=== PATIENT | female | born 1935 | race Caucasian/White ===

== ENCOUNTER 2019-02-01 17:53 | Inpatient (IN) | payer OTHER, BC ==
[2019-02-01] MEDS ORDERED: ASPIRIN 81 MG CHEWABLE TABLETS PO ONE (17:57)
--- NOTE | 2019-02-01 17:57 | PDOC ---
Rapid Medical Evaluation Time Seen by Provider: 02/01/19 17:55 Medical Evaluation: Allergies Allergy/AdvReac Type Severity Reaction Status Date / Time pollen extracts Allergy Unknown Verified 05/11/17 09:43 HONEYDEW Allergy Severe Difficulty Uncoded 05/11/14 13:03 Breathing HAYFEVER,GRASS,POLLEN Allergy Uncoded 03/18/16 07:53 02/01/19 17:55 HPI: SOB after stress test PE: No distress ORDERS: cardiac work up Discharge Disposition - Diagnosis SOB (shortness of breath) - Referrals - Patient Instructions - Post Discharge Activity
[2019-02-01 18:47] LABS: BASO % 0.8 % (0-2.0); HEMATOCRIT 32.4 % (32.4-45.2); HEMOGLOBIN 10.9 GM/dL (10.7-15.3); LYMPH % 7.3 % (8-40); MCH 30.7 pg (25.7-33.7); MCHC 33.6 g/dl (32.0-36.0); MEAN CELL VOLUME 91.3 fl (80-96); MEAN PLT VOLUME 8.5 fl (7.5-11.1); MONO % 6.5 % (3.8-10.2); NEUT % 83.4 % (42.8-82.8); PLATELET COUNT 255 K/MM3 (134-434); RBC 3.55 M/mm3 (3.60-5.2); WHITE BLOOD COUNT 6.5 K/mm3 (4.0-10.0)
[2019-02-01] MEDS ORDERED: ASPIRIN COATED 81 MG TABLET.EC ONE (18:50)
[2019-02-01 19:10] LABS: INR 1.16 (0.83-1.09); PROTHROMBIN TIME (PATIENT) 13.7 SEC (9.7-13.0)
--- NOTE | 2019-02-01 19:11 | PDOC ---
History of Present Illness - General Chief Complaint: Shortness of Breath Stated Complaint: SOB Time Seen by Provider: 02/01/19 17:55 - History of Present Illness Initial Comments: 83 yo F w a hx of CAD, CHF, HTN, NIDDM, Hyperlipdemia, right sided pleural effusions, diverticulosis, gastritis, chronic anemia, and anxiety presents to the ER with SOB after a stress test earlier today. The patient states she has been short of breath for the past few days but the daughter in law at bedside states the patient is much more short of breath now then she was this morning. The patient endorses significant dyspnea with exertion lately, endorses difficulty lying flat at night, and extreme shortness of breath here in the ER. She denies having any chest pain. She states she recently started taking amiodorone for AFIB. PCP: Santana Castillo Land Leasing Examiner: Dr. Belrtan PSH: CABG, Hysterectomy Allergies: Pollen, honeydew Social Hx: Independent in her ADL. Former smoker, quit in 1981. Denies current alcohol, drugs, or cigarette usage. Past History - Past Medical History Allergies/Adverse Reactions: Allergies Allergy/AdvReac Type Severity Reaction Status Date / Time pollen extracts Allergy Unknown Verified 02/01/19 18:48 HONEYDEW Allergy Severe Difficulty Uncoded 02/01/19 18:48 Breathing HAYFEVER,GRASS,POLLEN Allergy Uncoded 02/01/19 18:48 Home Medications: Ambulatory Orders Ranolazine [Ranexa] 500 mg PO BID 11/25/11 Folic Acid - 400 mcg PO DAILY 02/16/12 Tiotropium [place] [Spiriva] 18 mcg IH DAILY PRN 02/09/15 Warfarin Na [Coumadin -] 4 mg PO DAILY 08/12/15 Albuterol Sulfate [Proair Respiclick] 90 mcg IH BID PRN 03/18/16 Beclomethasone Dipropionate [Qvar] 0.04 mg IH BID 03/18/16 Furosemide [Lasix -] 40 mg PO DAILY 03/18/16 Glucosamine/D3/Boswellia Eda [Osteo Bi-Flex Caplet] 1 tab PO BID 03/18/16 Iron,Carbonyl [Feosol] 65 mg PO DAILY 03/18/16 Mometasone Furoate [Asmanex] 220 mcg IH BID PRN 08/10/16 Amiodarone HCl 200 mg PO BID 02/01/19 Atorvastatin Ca [Lipitor] 80 mg PO HS 02/01/19 Cyanocobalamin (Vitamin B-12) [Vitamin B-12] 1,000 mcg PO DAILY 02/01/19 Icosapent Ethyl [Vascepa] 2 gm PO BID 02/01/19 Iron Polysacch/Iron Heme Polyp [Feosol Bifera 28 mg Caplet] 28 mg PO DAILY 02/01 Losartan Potassium 25 mg PO DAILY 02/01/19 Metoprolol Succinate [Toprol Xl] 50 mg PO BID 02/01/19 Sitagliptin Phos/Metformin HCl [Janumet 50-1,000 mg Tablet] 1 each PO BID Vitamin E 100 unit PO DAILY 02/01/19 Anemia: No Asthma: Yes Cancer: No Cardiac Disorders: Yes (ASHD,AF, CAD) CVA: No COPD: Yes CHF: No Dementia: No Diabetes: Yes (IDDM) GI Disorders: Yes (COLON ADENOMA,HIATAL HERNIA,DIVERTICULOSIS) Disorders: No HTN: Yes Hypercholesterolemia: Yes 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) Seizures: No Thyroid Disease: No - Surgical History Abdominal Surgery: No Appendectomy: No Cardiac Surgery: Yes (S/P CABG 2003) Cholecystectomy: No Lung Surgery: Yes (THORACENTESIS.AFTER ABNORMAL CAT SCAN) Neurologic Surgery: No Orthopedic Surgery: Yes (RIGHT CARPAL TUNNEL RELEASE) - Suicide/Smoking/Psychosocial Hx Smoking Status: No Smoking History: Never smoked Have you smoked in the past 12 months: No Number of Cigarettes Smoked Daily: 0 If you are a former smoker, when did you quit?: 1981 Information on smoking cessation initiated: No Hx Alcohol Use: No Drug/Substance Use Hx: No Substance Use Type: None Hx Substance Use Treatment: No Review of Systems - Review of Systems Able to Perform ROS?: Yes Comments:: CONSTITUTIONAL: Absent: fever, no chills, no fatigue EYES: Absent: visual changes ENT: Absent: ear pain, no sore throat CARDIOVASCULAR: Present: irregular heart rate, lightheadedness, peripheral edema Absent: chest pain, syncope, palpitations RESPIRATORY: Present: shortness of breath, dyspnea with exertion, orthopnea Absent: cough, wheezing, stridor, hemoptysis GI: Absent: abdominal pain, no nausea, no vomiting, no constipation, no diarrhea GENITOURINARY: Absent: dysuria, no frequency, no hematuria MUSKULOSKELETAL: Absent: back pain, no arthralgia, no myalgia SKIN: Absent: rash NEURO: Absent: headache *Physical Exam - Vital Signs Last Vital Signs Temp Pulse Resp BP Pulse Ox 97.8 F 150 H 16 134/79 97 02/01/19 17:59 02/01/19 17:59 02/01/19 17:59 02/01/19 17:59 02/01/19 18:24 - Physical Exam Comments: GENERAL: Patient looks like she is having a hard time breathing. Looks pale. Moderate distress. HEENT: Normocephalic, atraumatic. PERRL, EOM intact. CARDIOVASCULAR: Irregularly irregular. Tachycardic rate. PULMONARY: Clear evidence of significant respiratory distress. Decreased air movement on the right base. No wheezing, rales or rhonchi. ABDOMEN: Soft, non-distended, non-tender. EXTREMITIES: Normal ROM in all four extremities. No gross deformities. SKIN: Warm, dry. No rash NEUROLOGICAL: No focal neurological deficits. ED Treatment Course - LABORATORY CBC & Chemistry Diagram: 02/01/19 18:24 02/01/19 18:24 - ADDITIONAL ORDERS Additional order review: 02/01/19 18:24 RBC 3.55 L MCV 91.3 MCHC 33.6 RDW 16.0 H MPV 8.5 Neutrophils % 83.4 H Lymphocytes % 7.3 L D Monocytes % 6.5 Eosinophils % 2.0 Basophils % 0.8 Medical Decision Making - Medical Decision Making 83 yo F w a hx of CAD, CHF, HTN, NIDDM, Hyperlipdemia, right sided pleural effusions, diverticulosis, gastritis, chronic anemia, and anxiety presents to the ER with SOB after a stress test earlier today. The patient states she has been short of breath for the past few days but the daughter in law at bedside states the patient is much more short of breath now then she was this morning. The patient endorses significant dyspnea with exertion lately, endorses difficulty lying flat at night, and extreme shortness of breath here in the ER. She denies having any chest pain. She states she recently started taking amiodorone for AFIB. Vital Signs Temp Pulse Resp BP Pulse Ox 97.8 F 139 H 26 H 135/117 H 100 02/01/19 17:59 02/01/19 19:39 02/01/19 19:39 02/01/19 19:39 02/01/19 19:39 DDx IBNLT: CHF exacerbation, COPD, PNA, PE, ACS/NE, Arrhythmia, medication side/ effect Trop negative. BNP elevated. INR subtherapeutic. MDM: Patient is clearly having a heart failure exacerbation. - She is also supposed to be taking warfarin for her AFIB but her INR is subtherapeutic, possible as a result of her recently starting amiodorone. - Plan is to start lasix and Bi-Pap in the ED then admit the patient to the hospital for a heart failure exacerbation. - Will also obtain a CTA to rule out PE Patient noted to have a relatively low GFR - Given the patient's sub-therapeutic index we find it extremely necessary to scan the patient with contrast to rule out PE - Risks discussed with patient and we have advised that it is in her best interest to have a CTA to rule out PE. - CTA negative for PE but shows a large right sided pleural effusion. Patient breathing much better on Bi-Pap *DC/Admit/Observation/Transfer Diagnosis at time of Disposition: SOB (shortness of breath), Irregularly irregular cardiac rhythm, Heart failure , Subtherapeutic international normalized ratio (INR) - Discharge Dispostion Condition at time of disposition: Guarded Decision to Admit order: Yes - Referrals - Patient Instructions - Post Discharge Activity
[2019-02-01 19:19] LABS: ALBUMIN 3.4 g/dl (3.4-5.0); ALK PHOS 94 U/L (45-117); ANION GAP 7 MMOL/L (8-16); BILIRUBIN,TOTAL 0.6 mg/dL (0.2-1); BLOOD UREA NITROGEN 26.6 mg/dL (7-18); CALCIUM 9.9 mg/dL (8.5-10.1); CHLORIDE 107 mmol/L (98-107); CO2 26 mmol/L (21-32); CREATININE 1.3 mg/dL (0.55-1.3); GLUCOSE,RANDOM 151 mg/dL (74-106); MAGNESIUM 2.3 mg/dL (1.8-2.4); POTASSIUM 4.5 mmol/L (3.5-5.1); SGOT/AST 12 U/L (15-37); SGPT/ALT 19 U/L (13-61); SODIUM 140 mmol/L (136-145); TOT PROT 7.1 g/dl (6.4-8.2)
[2019-02-01] MEDS ORDERED: FUROSEMIDE 40 MG/4 ML INJECTABLE VIAL IVPUSH ONE ×2 (19:37→21:05)
[2019-02-01] MEDS ORDERED: FUROSEMIDE 40 MG/4 ML INJECTABLE VIAL ONE ×2 (19:45→21:20)
--- NOTE | 2019-02-01 19:59 | HP ---
Admitting History and Physical - Primary Care Physician PCP: Dr Castillo - Admission Chief Complaint: Worsening SOB History of Present Illness: PCP: Santana Castillo Intake Man: Dr. Sage Pt is an 83 yo F w a hx of CAD, s/p PCI, CABG (2003), DCHF, HTN, NIDDM, Hyperlipdemia, chronic right sided pleural effusions s/p thoracocentesis, diverticulosis, gastritis, chronic anemia, RESTREPO with cirrhosis, and anxiety presenting for SOB after an outpt stress test earlier today. Pt reports worsening SOB over the past week with persistent b/l leg edema. Prior to the stress test pt reported able to take the stairs with minimal exertion but since getting home today she was SOB on minimal exertion including while sitting down. The patient has orthopnea, PND, b/l leg swelling which has persisted but with marked SOB after the stress test today with Dr Sage. Per pt the nuclear stress test was reported to be negative. Pt denies chest pain. She recently changed her acquisitions librarian from Dr Ayers to dr Sage about 2 months ago and recently had changes to her medications including amiodarone 200mg daily and toprol 50mg bid, with discontinuation it appears of diltiazem that was listed previously in her records. Pt has been taking 20mg of lasix for a long time and reports administering her medications by herself, admits to missing doses and to increased salt intake without fluid restriction. Her last admission was at [facility] in 2016, she has never been intubated and does not use oxygen or CPAP at home. Never been evaluated for sleep apnea. she denies lung dx including COPD although she reports having thoracocentesis in the past. CT August 2018 showed stable multiple lung nodules and mamogram in past showed nodules. Pt last used inhalers over 2 months ago. While in the ED, she had severe SOB and was placed on BIPAP. 22/01 When I saw her in CT on nasal cannular she was unable to complete sentences. CTA chest- negative for PE, but showed increased b/l pleural effusions Initial EKG- vent rate 134bpm, nl axis, nl intervals, no CRISTHIAN/STD, low voltage, Afib, QTC 495 Repeat EKG- Afib vent rate 110, Q waves in v1,v2, low voltage, TWIs v1-v3,QTC- 460 Initial trops-ve CT 08/2018 Stable nodules 7mm-RUL, 5.5mm-RLL, 4mm-subpleural nodule, 5mm-subpleural Mod effusion R trace L, calcified subcarinal and pretrach adenopathy UA-01/30 Nitrite +ve. trace LE PSH: CABG, Hysterectomy, s/p R carpal tunnel release Allergies: Pollen, honeydew Social Hx: Independent in her ADL. Former smoker, quit in 1981. Denies current alcohol, drugs, or cigarette usage. History Source: Patient, Family Member Limitations to Obtaining History: No Limitations - Past Medical History Cardiovascular: Yes: CAD, CHF, HTN, Hyperlipdemia Pulmonary: Yes: Other (Stable lung nodules) Gastrointestinal: Yes: Diverticulosis, Gastritis Heme/Onc: Yes: Anemia, Other Psych: Yes: Anxiety Endocrine: Yes: Diabetes Mellitus - Past Surgical History Past Surgical History: Yes: CABG, Hysterectomy - Advance Directives Advance Directives: Yes: DNR - Smoking History Smoking history: Never smoked Have you smoked in the past 12 months: No Aproximately how many cigarettes per day: 0 If you are a former smoker, when did you quit?: 1981 - Alcohol/Substance Use Hx Alcohol Use: No History of Substance Use: reports: None - Social History ADL: Independent 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 History of Recent Travel: No Home Medications - Allergies Allergies/Adverse Reactions: Allergies Allergy/AdvReac Type Severity Reaction Status Date / Time pollen extracts Allergy Unknown Verified 02/01/19 18:48 HONEYDEW Allergy Severe Difficulty Uncoded 02/01/19 18:48 Breathing HAYFEVER,GRASS,POLLEN Allergy Uncoded 02/01/19 18:48 - Home Medications Home Medications: Ambulatory Orders Ranolazine [Ranexa] 500 mg PO BID 11/25/11 Folic Acid - 400 mcg PO DAILY 02/16/12 Tiotropium [place] [Spiriva] 18 mcg IH DAILY PRN 02/09/15 Warfarin Na [Coumadin -] 4 mg PO DAILY 08/12/15 Albuterol Sulfate [Proair Respiclick] 90 mcg IH BID PRN 03/18/16 Beclomethasone Dipropionate [Qvar] 0.04 mg IH BID 03/18/16 Furosemide [Lasix -] 40 mg PO DAILY 03/18/16 Glucosamine/D3/Boswellia Eda [Osteo Bi-Flex Caplet] 1 tab PO BID 03/18/16 Iron,Carbonyl [Feosol] 65 mg PO DAILY 03/18/16 Mometasone Furoate [Asmanex] 220 mcg IH BID PRN 03/18/16 Amiodarone HCl 200 mg PO BID 02/01/19 Atorvastatin Ca [Lipitor] 80 mg PO HS 02/01/19 Cyanocobalamin (Vitamin B-12) [Vitamin B-12] 1,000 mcg PO DAILY 02/01/19 Icosapent Ethyl [Vascepa] 2 gm PO BID 02/01/19 Iron Polysacch/Iron Heme Polyp [Feosol Bifera 28 mg Caplet] 28 mg PO DAILY 02/01 Losartan Potassium 25 mg PO DAILY 02/01/19 Metoprolol Succinate [Toprol Xl] 50 mg PO BID 02/01/19 Sitagliptin Phos/Metformin HCl [Janumet 50-1,000 mg Tablet] 1 each PO BID Vitamin E 100 unit PO DAILY 02/01/19 Family Disease History - Family Disease History Family Disease History: Diabetes: Mother, Heart Disease: Mother Review of Systems - Review of Systems Constitutional: denies: Chills, Diaphoresis, Fever, Loss of Appetite Eyes: denies: Blurred Vision, Recent Change in Vision HENT: denies: Difficult Swallowing Neck: denies: Stiffness Cardiovascular: denies: Chest Pain Respiratory: reports: Exercise Intolerance, Orthopnea, PND, SOB, SOB on Exertion. denies: Cough, Hemoptysis, Wheezing Gastrointestinal: denies: Abdominal Pain, Bloating, Constipation, Diarrhea, Vomiting Genitourinary: reports: Incontinence. denies: Burning, Flank Pain Neurological: denies: Change in LOC, Change in Speech, Confusion, Syncope, Tremors Psychiatric: reports: Anxiety Physical Examination Vital Signs: Vital Signs Temperature 97.8 F 02/01/19 17:59 Pulse Rate 139 H 02/01/19 19:39 Respiratory Rate 26 H 02/01/19 19:39 Blood Pressure 135/117 H 02/01/19 19:39 O2 Sat by Pulse Oximetry (%) 100 02/01/19 19:39 Constitutional: Yes: Well Nourished Eyes: Yes: Conjunctiva Clear, EOM Intact, PERRL. No: Sclera Icterus HENT: No: Drooling, Epistaxis, Pharyngeal Erythema Neck: Yes: Supple Cardiovascular: Yes: Tachycardia, JVD, S1, S2 Respiratory: Yes: Diminished (R lung base, few fine crackles) Gastrointestinal: Yes: Soft, Abdomen, Obese Renal/: No: CVA Tenderness - Left, CVA Tenderness - Right Musculoskeletal: No: Joint Stiffness, Joint Swelling Edema: Yes Edema: LLE: 2+, RLE: 2+ Peripheral Pulses WNL: Yes Neurological: Yes: Alert, Oriented, Cran Nerves II-XII Intact. No: Aphasia, Asterixis, Dysarthria, Facial Droop, Lethargy, Pre-Existing Deficit, Seizure, Tremors Labs: CBC, BMP 02/01/19 18:24 02/01/19 18:24 Imaging - Results Chest X-ray: Image Reviewed Cat Scan: Report Reviewed, Image Reviewed Assessment/Plan Ambulatory Orders Ranolazine [Ranexa] 500 mg PO BID 11/25/11 Folic Acid - 400 mcg PO DAILY 02/16/12 Tiotropium [place] [Spiriva] 18 mcg IH DAILY PRN 02/09/15 Warfarin Na [Coumadin -] 4 mg PO DAILY 08/12/15 Albuterol Sulfate [Proair Respiclick] 90 mcg IH BID PRN 03/18/16 Beclomethasone Dipropionate [Qvar] 0.04 mg IH BID 03/18/16 Furosemide [Lasix -] 40 mg PO DAILY 03/18/16 Glucosamine/D3/Boswellia Eda [Osteo Bi-Flex Caplet] 1 tab PO BID 03/18/16 Iron,Carbonyl [Feosol] 65 mg PO DAILY 03/18/16 Mometasone Furoate [Asmanex] 220 mcg IH BID PRN 03/18/16 Amiodarone HCl 200 mg PO BID 02/01/19 Atorvastatin Ca [Lipitor] 80 mg PO HS 02/01/19 Cyanocobalamin (Vitamin B-12) [Vitamin B-12] 1,000 mcg PO DAILY 02/01/19 Icosapent Ethyl [Vascepa] 2 gm PO BID 02/01/19 Iron Polysacch/Iron Heme Polyp [Feosol Bifera 28 mg Caplet] 28 mg PO DAILY 02/01 Losartan Potassium 25 mg PO DAILY 02/01/19 Metoprolol Succinate [Toprol Xl] 50 mg PO BID 02/01/19 Sitagliptin Phos/Metformin HCl [Janumet 50-1,000 mg Tablet] 1 each PO BID Vitamin E 100 unit PO DAILY 02/01/19 Current Medications Albuterol Sulfate (Ventolin Hfa Inhaler -) 1 puff IH BID PRN PRN Reason: SHORTNESS OF BREATH Amiodarone HCl (Cordarone -) 200 mg PO BID [facility] Last Admin: 02/01/19 22:13 Dose: 200 mg Aspirin (Ecotrin -) 81 mg PO DAILY [facility] Atorvastatin Calcium (Lipitor -) 80 mg PO HS [facility] Last Admin: 02/01/19 22:13 Dose: 80 mg Enoxaparin Sodium (Lovenox -) 60 mg SQ BID [facility] Insulin Aspart (Novolog Vial Sliding Scale -) 1 vial SQ Q4HPO [facility]; Protocol Metoprolol Succinate (Toprol Xl -) 50 mg PO BID [facility] Last Admin: 02/01/19 23:54 Dose: 50 mg Ranolazine (Ranexa -) 500 mg PO BID [facility] Last Admin: 02/01/19 22:13 Dose: 500 mg Warfarin Sodium (Coumadin -) 2 mg PO DAILY@1600 [facility] Assessment/Plan: Pt is an 83 yo F with PMHx of CAD, s/p PCI, CABG (2003), DCHF, HTN, NIDDM, aFIB W/rvr (on coumadin), Hyperlipdemia, chronic right sided pleural effusions s/p thoracocentesis, diverticulosis, gastritis, chronic anemia, RESTREPO with cirrhosis , and anxiety presenting for SOB after an outpt stress test earlier today. #Acute hypoxic respiratory failure abg pending- pt refused abg Pt does not use oxygen at home, never been intubated SOB- Likely in setting of CHF precipitated by rapid afib Pt on BIPAP, consider weaning off bipap as tolerated Lasix 40mg given in Ed, repeat 40 given 40mg lasix daily Cont ranexa Pt responsive to bipap, may benefit from sleep study as an outpt. #CHF exacerbation DCHF documented in past Use PO 20mg lasix Cont 40mg iv daily Strict ins and outs Daily weight Fluid restriction Salt restriction ECHO #Afib w/RVR Likely precipitating CHF failure Consult- Dr Chu Guajardo 5mg given Cont metoprolol 50 xl bid Amiodarone 200daily Lovenox- therapeutic dose (subtherapeutic INR, with CKD)- Pharmacy recommended 60mg bid Warfarin cont 2mg- D/W pharmacy #UTI Pt denying clear urinary symptoms UA positive noted on 01/30 test Repeat UA- positive for nitrites with bacteria 178 Ucx pending 1g ceftriaxone daily #CKD Pt received iv contrast today, will avoid nephrotoxic drugs Gentle diuresis Daily weights Strict ins and outs #CAD, s/p PCI, CABG (2003) Cont ASA Cont metoprolol Hold ARB #HTN Cont lasix Hold ARB Cont metoprolol #NIDDM Hold PO meds ISS Q4H BGM Q4H #Hyperlipidemia Cont lipitor #chronic right sided pleural effusions s/p thoracocentesis Seen by pulm in past Unsure of out pt follow up #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 Unclear TB work up Quantiferon pending Recent CT August 2018- shows nodules are stable Cont to monitor #diverticulosis/gastritis/chronic anemia/RESTREPO with cirrhosis CTA still showing cirrhosis today No abdominal complaints at the moment Cont to monitor Transfusion goal with CAD <8 Cont outpt GI mx #anxiety Not on any anxiolytic Tele admit Full dose heparin with subtherapeutic INR Cont coumadin 2mg Code status DNR- In Chart Visit type - Emergency Visit Emergency Visit: Yes ED Registration Date: 02/01/19 Care time: The patient presented to the Emergency Department on the above date and was hospitalized for further evaluation of their emergent condition. - New Patient This patient is new to me today: Yes Date on this admission: 02/01/19 - Critical Care Critical Care patient: No
--- NOTE | 2019-02-01 20:26 | PN ---
Teaching Attending Note Name of Resident: Gracia Reyes ATTENDING PHYSICIAN STATEMENT I saw and evaluated the patient. I reviewed the resident's note and discussed the case with the resident. I agree with the resident's findings and plan as documented. SUBJECTIVE: Seen and examined; please refer to resident note for further historical information. Briefly, this is a 83 y/o female presenting to the ER with a CC of SOB. She has a history of diastolic CHF exacerbations 2/2 rate-related issues stemming from her afib, and this appears to be the same case. She was seen by her land sales agent for stress test (report pending) and subsequentially developed exertional SOB. When prompted, the patient endorses frequent medication noncompliance and frequent dietary noncompliance, admitting to eating a good deal of salt and not paying attention to her fluid intake. She denies CP; she tells me that these symptoms are similar to her prior CHF exacerbation. There are inconsistinces between medication lists and we are elucidating what she is actually taking; appears that she is listed as being on several inhalers that she is not currently using, as well as likely recent dosage updates with her BB and warfarin (also found today to have subtherapeutic INR). She reveals her last year and agrees that she may be depressed due to this. She was placed on Bipap in the ER which did improve her symptoms; she was noted to refuse ABG. 10 sys ROS done and negative aside from HPI PMH, PSH, FH, SH reviewed Home Medications Medication Instructions Recorded Ranolazine [Ranexa] 500 mg PO BID 11/25/11 Folic Acid - 400 mcg PO DAILY 02/16/12 Tiotropium [place] [Spiriva] 18 mcg IH DAILY PRN 02/09/15 Warfarin Na [Coumadin -] 4 mg PO DAILY 08/12/15 Albuterol Sulfate [Proair 90 mcg IH BID PRN 03/18/16 Respiclick] Beclomethasone Dipropionate [Qvar] 0.04 mg IH BID 03/18/16 Furosemide [Lasix -] 40 mg PO DAILY 03/18/16 Glucosamine/D3/Boswellia Eda 1 tab PO BID 03/18/16 [Osteo Bi-Flex Caplet] Iron,Carbonyl [Feosol] 65 mg PO DAILY 03/18/16 Mometasone Furoate [Asmanex] 220 mcg IH BID PRN 03/18/16 Amiodarone HCl 200 mg PO BID 02/01/19 Atorvastatin Ca [Lipitor] 80 mg PO HS 02/01/19 Cyanocobalamin (Vitamin B-12) 1,000 mcg PO DAILY 02/01/19 [Vitamin B-12] Icosapent Ethyl [Vascepa] 2 gm PO BID 02/01/19 Iron Polysacch/Iron Heme Polyp 28 mg PO DAILY 02/01/19 [Feosol Bifera 28 mg Caplet] Losartan Potassium 25 mg PO DAILY 02/01/19 Metoprolol Succinate [Toprol Xl] 50 mg PO BID 02/01/19 Sitagliptin Phos/Metformin HCl 1 each PO BID 02/01/19 [Janumet 50-1,000 mg Tablet] Vitamin E 100 unit PO DAILY 02/01/19 She says she only takes 20 lasix QD; current med list does NOT have the diltiazem; she also does not appear to be on the inhalers listed above and on chart review doesn't carry a diagnosis of COPD. Warfarin dose appears to have been adjusted to 2mg from 4mg. Resident team to update above list. OBJECTIVE: VS, labs, imaging reviewed NAD, AAO, resting comfortably in bed NC AT EOMI PERRLA Tachycardic and irregular with s1/2 Lungs with scattered moderate crackles throughout, w/ sym exp NT ND +BS CN2-12 wnl, no fnd Normal mood, appropriate behavior. EKG reviewed; Afib with RVR and nonspecific ST-T abnormality CXR reviewed; endorses fluid overload CT chest reviewed Stress test from today results pending; 2017 stress reviewed ASSESSMENT AND PLAN: Patient presents with CHF exacerbation and Afib with RVR; she has improved on BiPap and will be on medicine service with CV consultation. Acute respiratory failure likely 2/2 CHF exacerbation (known diastolic dysfunction with ? systolic component) -ABG refused by patient. BNP elevated, fluid overload noted on CXR/CT. -Noted the given lasix dosage; would do 40 IV QD for now and confirm the dose she was getting at home. Checking 2D echo. On GDMT; will continue BB but hold ARB given the relative increase in renal function from her baseline and resume tomorrow if no worsening renal indices. QD weights, fluid and salt restriction , optimize K and Mg. Consider chief quality officer referral given the dietary noncompliance. -Likely trigger is rate related with element of dietary noncompliance. Would like to see stress test records, as well. Appreciate cardiology expert input. Afib with RVR on coumadin -Given 1x 5mg push in the ER of CT which lowered HR to 100s-110s. Giving PM dose of toprol XL and will continue to monitor on telemetry. Can repeat IV BB dose if needed; would stay away from dilt given unknown current systolic function with current fluid overload and it appears that this has been discontinued as of late. -Home medications include amiodarone 200 BID, Toprol XL 50 BID. Will continue aforementioned. -Per [address] Villasenor she had issues with rate control and there had been consideration of DCCV due to this. She now follows with Dr. Sage so we will consult him for further input. She doesn't appear to be on cardizem on 02/01 medlist from [facility]. Has been on dig in the past. -Warfarin with pharmacy to dose; subtherapeutic INR noted. Will give 1x dose lovenox tonight and followup INR in AM. CAD S/P CABG, PCI -Continue ASA, BB, Ranexa, Lipitor. Obtain stress test records from today's visit with CV. Acute Cystitis -Reviewed 01/30 UA and repeat study; empiric ceftriaxone follow cx's and clinically Type 2 DM -Hold PO meds and SSI when inpatient. Hypercholesterolemia -Continue home statin; OP lipid FU Cirrhosis -Noted history and apparent on imaging. TYLER -Relative increase in Cr with drop in CrCl from baseline of significance; did get a good amount of diuresis alongside contrast in the ER. Will thus hold ARB until ascertained that her renal function is normal. She has multiple reasons for CKD, as well. Monitor BMP and UOP. Hx HLD -Verify and continue home medications (documented as Vascepta and Lipitor) -OP lipid followup Hx HTN -Hold losartan until we can verify renal function baseline; resume when clinically appropriate Hx DM -Hold PO meds; SSI when inpatient. MANISHA Scarring vs. Chronic Infiltrate -Noted on CT; prior imaging reviewed. She has seen pulmonary medicine in the past.
--- NOTE | 2019-02-01 20:49 | PDOC ---
Documentation entered by Jaime Martino SCRIBE, acting as scribe for Sadie Mora DO. Sadie Mora DO: This documentation has been prepared by the júnior, Jaime Martino SCRIBE, under my direction and personally reviewed by me in its entirety. I confirm that the documentation accurately reflects all work, treatment, procedures, and medical decision making performed by me. Attending Attestation - Resident Resident Name: Marco Rodriguez - ED Attending Attestation I have performed the following: I have examined & evaluated the patient, The case was reviewed & discussed with the resident, I agree w/resident's findings & plan - HPI HPI: 02/01/19 19:35 The patient is an 83 year old female with a significant past medical history of CAD, CHF, HTN, NIDDM, Hyperlipidemia, right sided pleural effusion, diverticulosis, gastritis, chronic anemia, and anxiety presents to the ER with SOB s/p stress test earlier today. As per daughter in law, the patient is independent on daily activity. As per family, the patient does not have a history of PE/ blood clots. The patient denies chest pain, headache and dizziness. Denies fever, chills, nausea, vomiting, diarrhea and constipation. Denies dysuria, frequency, urgency and hematuria. Allergies: Pollen, honeydew Surgical History: CABG, Hysterectomy Social History: Independent in his ADL. Former smoker, quit in 1981. Denies current alcohol, drugs, or cigarette usage. PCP: Santana Arvizu - Physicial Exam PE: 02/01/19 19:37 Agree with resident exam. - Medical Decision Making 02/01/19 20:48 83-year-old female with history of coronary artery disease as well as congestive heart failure with increasing shortness of breath worse after medical stress test Chest x-ray and labs suggest congestive heart failure, troponin within normal limits Due to patient's low mobility and subtherapeutic INR a CTA of the chest will be performed to rule out pulmonary embolism Lasix 40 mg IV push given, BiPAP initiated due to increased work of breathing and patient fatigue Patient admitted to hospitalist service for further management
[2019-02-01] MEDS ORDERED: PATIENT'S OWN MEDICATION (NON-FORMULARY) (Tiotropium Bromide [Spiriva] 18 MCG) IH PRN (21:03)
[2019-02-01] MEDS ORDERED: PATIENT'S OWN MEDICATION (NON-FORMULARY) (Albuterol Sulfate [Proair Respiclick] 90 MCG) IH PRN (21:03)
[2019-02-01] MEDS ORDERED: MOMETASONE FUROATE 220 MCG/IH INHALER IH PRN (21:03)
[2019-02-01] MEDS ORDERED: METOPROLOL TARTRATE 5 MG/5 ML VIAL IVPUSH ONE (21:06)
[2019-02-01] MEDS ORDERED: ALBUTEROL SO4 8 GM HFA INHALER IH PRN ×2 (21:09→21:10)
[2019-02-01] MEDS ORDERED: ATORVASTATIN CA 80 MG TABLET (FP) ONE (21:19)
[2019-02-01] MEDS ORDERED: AMIODARONE HCL 200 MG TABLET (FP) ONE (21:20)
[2019-02-01] MEDS ORDERED: METOPROLOL TARTRATE 5 MG/5 ML VIAL ONE (21:40)
[2019-02-01] MEDS: RANOLAZINE E.R. 500 MG TABLET (FP) PO SCH (22:13)
[2019-02-01] MEDS: AMIODARONE HCL 200 MG TABLET (FP) PO SCH (22:13)
[2019-02-01] MEDS: ATORVASTATIN CA 80 MG TABLET (FP) PO SCH (22:13)
[2019-02-01] MEDS ORDERED: CEFTRIAXONE 1 GM in DEXTROSE 5%-WATER - 50 ML IVPB ONE (22:51)
[2019-02-01] MEDS ORDERED: CEFTRIAXONE 1 GM/50 ML BAG ONE (23:40)
[2019-02-02] MEDS ORDERED: INSULIN (NOVOLOG) ASPART 100 UNITS/ML 10ML VIAL ONE (00:24)
[2019-02-02 00:51] LABS: EPI CELLS 0.3 /HPF (0-5/HPF); HYALINE CASTS 0 /lpf (0-8); URINE APPEARANCE CLEAR; URINE BACTERIA 1786.6 /hpf (NEGATIVE); URINE BILIRUBIN NEGATIVE (NEGATIVE); URINE COLOR YELLOW; URINE GLUCOSE (UA) NEGATIVE (NEGATIVE); URINE KETONE NEGATIVE (NEGATIVE); URINE LEUK ESTERASE NEGATIVE (NEGATIVE); URINE NITRITE POSITIVE (NEGATIVE); URINE PROTEIN NEGATIVE (NEGATIVE); URINE RBC 0 /hpf (0-4); URINE UROBILINOGEN 0.2 mg/dL (0.2-1.0); URINE WBC 1 /hpf (0-5)
[2019-02-02] MEDS: INSULIN SLIDING SCALE (NOVOLOG) 1 VIAL SQ SCH ×6 (00:59→21:44)
[2019-02-02 05:49] LABS: HEMATOCRIT 30.8 % (32.4-45.2); HEMOGLOBIN 10.5 GM/dL (10.7-15.3); MCHC 34.2 g/dl (32.0-36.0); MEAN CELL VOLUME 90.4 fl (80-96); MEAN PLT VOLUME 8.5 fl (7.5-11.1); PLATELET COUNT 278 K/MM3 (134-434); RDW 15.8 % (11.6-15.6)
[2019-02-02 06:02] LABS: INR 1.17 (0.83-1.09); PROTHROMBIN TIME (PATIENT) 13.8 SEC (9.7-13.0)
[2019-02-02 06:05] LABS: ACTIVATED PTT 39.1 SECONDS (25.2-36.5)
[2019-02-02 06:20] LABS: ALBUMIN 3.2 g/dl (3.4-5.0); BILIRUBIN,TOTAL 0.9 mg/dL (0.2-1); BLOOD UREA NITROGEN 24.9 mg/dL (7-18); CALCIUM 9.9 mg/dL (8.5-10.1); CREATININE 1.4 mg/dL (0.55-1.3); MAGNESIUM 2.2 mg/dL (1.8-2.4); PHOSPHOROUS 3.3 mg/dL (2.5-4.9); POTASSIUM 4.3 mmol/L (3.5-5.1)
--- NOTE | 2019-02-02 09:52 | PN ---
Teaching Attending Note Name of Resident: Samina Redd ATTENDING PHYSICIAN STATEMENT I saw and evaluated the patient. I reviewed the resident's note and discussed the case with the resident. I agree with the resident's findings and plan as documented with exceptions below. SUBJECTIVE: Patient seen and examined, breathing improved, reports non compliance with diet and lasix intermittently. NO chest pain, palpitations, dizziness currently. Denies any abdominal or urinary symptoms. OBJECTIVE: Vital Signs Period Temp Pulse Resp BP Sys/Cortes Pulse Ox Last 24 Hr 97.8 F-98.2 F 90-150 16-28 104-154/70-117 95-100 Intake & Output 01/30/19 01/31/19 02/01/19 02/02/19 23:59 23:59 23:59 23:59 Output Total 50 Balance -50 Weight 150 lb 165 lb 6.4 oz General: sitting in bed, mild tachypnea and use of accessory muscles of respiration, able to speak in full sentences Neck: soft, supple, neck distension, pos JVD Chest: Decreased breath sounds at bases to midlung on right side Abdomen:soft, NT, ND, no CVA or suprapubic tenderness Extremities2+ pedal pitting edema CVS:S1S2 irregularly irregular Home Medications Medication Instructions Recorded Ranolazine [Ranexa] 500 mg PO BID 11/25/11 Folic Acid - 400 mcg PO DAILY 02/16/12 Tiotropium [place] [Spiriva] 18 mcg IH DAILY PRN 02/09/15 Warfarin Na [Coumadin -] 4 mg PO DAILY 08/12/15 Albuterol Sulfate [Proair 90 mcg IH BID PRN 03/18/16 Respiclick] Beclomethasone Dipropionate [Qvar] 0.04 mg IH BID 03/18/16 Furosemide [Lasix -] 40 mg PO DAILY 03/18/16 Glucosamine/D3/Boswellia Eda 1 tab PO BID 03/18/16 [Osteo Bi-Flex Caplet] Iron,Carbonyl [Feosol] 65 mg PO DAILY 03/18/16 Mometasone Furoate [Asmanex] 220 mcg IH BID PRN 03/18/16 Amiodarone HCl 200 mg PO BID 02/01/19 Atorvastatin Ca [Lipitor] 80 mg PO HS 02/01/19 Cyanocobalamin (Vitamin B-12) 1,000 mcg PO DAILY 02/01/19 [Vitamin B-12] Icosapent Ethyl [Vascepa] 2 gm PO BID 02/01/19 Iron Polysacch/Iron Heme Polyp 28 mg PO DAILY 02/01/19 [Feosol Bifera 28 mg Caplet] Losartan Potassium 25 mg PO DAILY 02/01/19 Metoprolol Succinate [Toprol Xl] 50 mg PO BID 02/01/19 Sitagliptin Phos/Metformin HCl 1 each PO BID 02/01/19 [Janumet 50-1,000 mg Tablet] Vitamin E 100 unit PO DAILY 02/01/19 Active Medications Albuterol Sulfate (Ventolin Hfa Inhaler -) 1 puff IH BID PRN PRN Reason: SHORTNESS OF BREATH Amiodarone HCl (Cordarone -) 200 mg PO BID [facility] Last Admin: 02/01/19 22:13 Dose: 200 mg Aspirin (Ecotrin -) 81 mg PO DAILY [facility] Atorvastatin Calcium (Lipitor -) 80 mg PO HS [facility] Last Admin: 02/01/19 22:13 Dose: 80 mg Enoxaparin Sodium (Lovenox -) 60 mg SQ BID [facility] Furosemide (Lasix Injection -) 40 mg IVPUSH BID@0600,1400 [facility] Ceftriaxone Sodium 1 gm/ (Dextrose) 50 mls @ 100 mls/hr IVPB DAILY [facility]; Protocol Insulin Aspart (Novolog Vial Sliding Scale -) 1 vial SQ Q4HPO [facility]; Protocol Last Admin: 02/02/19 06:30 Dose: Not Given Metoprolol Succinate (Toprol Xl -) 50 mg PO BID [facility] Last Admin: 02/01/19 23:54 Dose: 50 mg Ranolazine (Ranexa -) 500 mg PO BID [facility] Last Admin: 02/01/19 22:13 Dose: 500 mg Warfarin Sodium (Coumadin -) 2 mg PO DAILY@1800 [facility] Laboratory Results - last 24 hr 02/01/19 02/01/19 02/01/19 18:24 18:24 18:24 WBC 6.5 RBC 3.55 L Hgb 10.9 Hct 32.4 MCV 91.3 MCH 30.7 MCHC 33.6 RDW 16.0 H Plt Count 255 MPV 8.5 Absolute Neuts (auto) 5.5 Neutrophils % 83.4 H Lymphocytes % 7.3 L D Monocytes % 6.5 Eosinophils % 2.0 Basophils % 0.8 Nucleated RBC % 0 PT with INR 13.70 H INR 1.16 H PTT (Actin FS) Sodium 140 Potassium 4.5 Chloride 107 Carbon Dioxide 26 Anion Gap 7 L BUN 26.6 H Creatinine 1.3 Est GFR (CKD-EPI)AfAm 43.32 Est GFR (CKD-EPI)NonAf 37.38 POC Glucometer Random Glucose 151 H Calcium 9.9 Phosphorus Magnesium 2.3 Total Bilirubin 0.6 AST 12 L ALT 19 Alkaline Phosphatase 94 Creatine Kinase 67 Troponin I < 0.02 B-Natriuretic Peptide Total Protein 7.1 Albumin 3.4 Triglycerides Cholesterol Total LDL Cholesterol HDL Cholesterol TSH Urine Color Urine Appearance Urine pH Ur Specific [place] Urine Protein Urine Glucose (UA) Urine Ketones Urine Blood Urine Nitrite Urine Bilirubin Urine Urobilinogen Ur Leukocyte Esterase Urine WBC (Auto) Urine RBC (Auto) Urine Casts (Auto) U Pathogenic Cast Auto U Epithel Cells (Auto) Urine Bacteria (Auto) 02/01/19 02/01/19 02/02/19 18:24 22:35 00:20 WBC RBC Hgb Hct MCV MCH MCHC RDW Plt Count MPV Absolute Neuts (auto) Neutrophils % Lymphocytes % Monocytes % Eosinophils % Basophils % Nucleated RBC % PT with INR INR PTT (Actin FS) Sodium Potassium Chloride Carbon Dioxide Anion Gap BUN Creatinine Est GFR (CKD-EPI)AfAm Est GFR (CKD-EPI)NonAf POC Glucometer Random Glucose Calcium Phosphorus Magnesium Total Bilirubin AST ALT Alkaline Phosphatase Creatine Kinase 74 Troponin I < 0.02 B-Natriuretic Peptide 4315.7 H Total Protein Albumin Triglycerides Cholesterol Total LDL Cholesterol HDL Cholesterol TSH Urine Color Yellow Urine Appearance Clear Urine pH 5.0 Ur Specific [place] 1.011 Urine Protein Negative Urine Glucose (UA) Negative Urine Ketones Negative Urine Blood Trace Urine Nitrite Positive H Urine Bilirubin Negative Urine Urobilinogen 0.2 Ur Leukocyte Esterase Negative Urine WBC (Auto) 1 Urine RBC (Auto) 0 Urine Casts (Auto) 0 U Pathogenic Cast Auto No Result Required. U Epithel Cells (Auto) 0.3 Urine Bacteria (Auto) 1786.6 02/02/19 02/02/19 02/02/19 00:21 05:15 05:15 WBC 6.0 RBC 3.40 L Hgb 10.5 L Hct 30.8 L MCV 90.4 MCH 31.0 MCHC 34.2 RDW 15.8 H Plt Count 278 MPV 8.5 Absolute Neuts (auto) Neutrophils % Lymphocytes % Monocytes % Eosinophils % Basophils % Nucleated RBC % PT with INR 13.80 H INR 1.17 H PTT (Actin FS) 39.1 H Sodium Potassium Chloride Carbon Dioxide Anion Gap BUN Creatinine Est GFR (CKD-EPI)AfAm Est GFR (CKD-EPI)NonAf POC Glucometer 170 Random Glucose Calcium Phosphorus Magnesium Total Bilirubin AST ALT Alkaline Phosphatase Creatine Kinase Troponin I B-Natriuretic Peptide Total Protein Albumin Triglycerides Cholesterol Total LDL Cholesterol HDL Cholesterol TSH Urine Color Urine Appearance Urine pH Ur Specific [place] Urine Protein Urine Glucose (UA) Urine Ketones Urine Blood Urine Nitrite Urine Bilirubin Urine Urobilinogen Ur Leukocyte Esterase Urine WBC (Auto) Urine RBC (Auto) Urine Casts (Auto) U Pathogenic Cast Auto U Epithel Cells (Auto) Urine Bacteria (Auto) 02/02/19 05:15 WBC RBC Hgb Hct MCV MCH MCHC RDW Plt Count MPV Absolute Neuts (auto) Neutrophils % Lymphocytes % Monocytes % Eosinophils % Basophils % Nucleated RBC % PT with INR INR PTT (Actin FS) Sodium 142 Potassium 4.3 Chloride 105 Carbon Dioxide 31 Anion Gap 6 L BUN 24.9 H Creatinine 1.4 H Est GFR (CKD-EPI)AfAm 39.61 Est GFR (CKD-EPI)NonAf 34.18 POC Glucometer Random Glucose 131 H Calcium 9.9 Phosphorus 3.3 Magnesium 2.2 Total Bilirubin 0.9 AST 10 L ALT 17 Alkaline Phosphatase 94 Creatine Kinase Troponin I B-Natriuretic Peptide Total Protein 7.0 Albumin 3.2 L Triglycerides 151 H Cholesterol 142 Total LDL Cholesterol 67 HDL Cholesterol 54 TSH 2.28 Urine Color Urine Appearance Urine pH Ur Specific [place] Urine Protein Urine Glucose (UA) Urine Ketones Urine Blood Urine Nitrite Urine Bilirubin Urine Urobilinogen Ur Leukocyte Esterase Urine WBC (Auto) Urine RBC (Auto) Urine Casts (Auto) U Pathogenic Cast Auto U Epithel Cells (Auto) Urine Bacteria (Auto) CXR from this AM reviewed, some improvement in congestion Telemetry: afib 90-120s, 90s-100s this AM ASSESSMENT AND PLAN: 83 yof with PMHx of CAD, s/p PCI, CABG (2003), DCHF, Afib on coumadin, HTN, NIDDM, Hyperlipdemia, chronic right sided pleural effusions s/p thoracocentesis , diverticulosis, gastritis, chronic anemia, RESTREPO with cirrhosis, and anxiety admitted with dyspnea. -Acute hypoxic +/- Hypercapneic respiratory failure -Acute on chronic diastolic heart failure exacerbation, suspect from dietary/ medication non compliance, +/- Afib with RVR/uncontrolled HTN -Afib with RVR -Hypertensive urgency, from above +/- anxiety -BIlateral pleural effusions R>L -Lower uncomplicated UTI -CAD s/p PCI, CABG 2013 -HTN -HLD -NIDDM -RESTREPO with cirrhosis -Chronic anemia -Gastritis Plan: Clinically improved. Bipap prn. Increase lasix to 40 mg IV BID, strict I/Os and daily weights. 2D echo. Follow up Cardiology input. Placed on amiodarone 200 mg BID yesterday, continue. Toprol XL 50 mg BID. Lovenox/coumadin with daily INR. Resume losartan in 24 hours as BP/renal function tolerate. Retrieve stress test results done 02/01. Ceftriaxone day 2, follow up urine cultures. Hold janumet. ISS, diabetic diet CHF education DVTPPx as above Dispo will need PT eval and possible SNF when clinically improved. Plan discussed with patient and nursing, all questions answered.
[2019-02-02] MEDS ORDERED: ENOXAPARIN NA (PORCINE) 30 MG/0.3 ML DISP.SYRIN SQ SCH (10:00)
[2019-02-02] MEDS ORDERED: TIOTROPIUM BROMIDE 2.5 MCG (SPIRIVA) RESPIMAT INHALER IH SCH (10:00)
[2019-02-02] MEDS ORDERED: LOSARTAN POTASSIUM 50 MG TABLET (FP) PO SCH (10:00)
[2019-02-02] MEDS ORDERED: FUROSEMIDE 40 MG/4 ML INJECTABLE VIAL IVPUSH SCH (10:00)
[2019-02-02] MEDS: RANOLAZINE E.R. 500 MG TABLET (FP) PO SCH ×2 (10:01→21:35)
[2019-02-02] MEDS: ASPIRIN COATED 81 MG TABLET.EC PO SCH (10:01)
[2019-02-02] MEDS: ENOXAPARIN NA (PORCINE) 60 MG/0.6 ML DISP.SYRIN SQ SCH ×2 (10:02→21:36)
[2019-02-02] MEDS ORDERED: cefTRIAXone SODIUM 1 GM VIAL ONE ×2 (10:06→11:24)
[2019-02-02] MEDS ORDERED: DEXTROSE 5%-WATER - 50 ML IVPB ONE ×2 (10:07→11:24)
[2019-02-02] MEDS: CEFTRIAXONE 1 GM in DEXTROSE 5%-WATER - 50 ML IVPB SCH (10:11)
[2019-02-02] MEDS: AMIODARONE HCL 200 MG TABLET (FP) PO SCH ×2 (10:12→21:35)
--- NOTE | 2019-02-02 10:33 | CON.CARD ---
Consult Consult Specialty:: Cardiology Referred by:: Hospitalist Medicine Reason for Consultation:: Dyspnea - History of Present Illness Chief Complaint: Dyspnea History of Present Illness: 83 y/o female hx of CAD, s/p PCI, CABG (2003), DCHF, HTN, NIDDM, Hyperlipdemia, PAF with RVR on coumadin per INR, chronic right sided pleural effusions s/p thoracocentesis, diverticulosis, gastritis, chronic anemia, RESTREPO with cirrhosis , and anxiety presented to the ER with a CC of SOB. She has a history of diastolic CHF exacerbations 2/2 rate-related issues stemming from her afib, and this appears to be the same case. She was seen by her morgue attendant for stress test (report pending) and subsequentially developed exertional SOB, orthopnea, PND and LE edema. When prompted, the patient endorses frequent medication noncompliance and frequent dietary noncompliance, admitting to eating a good deal of salt and not paying attention to her fluid intake, denies NSAID use. She denies CP, palpitations, near or true syncope; she tells me that these symptoms are similar to her prior CHF exacerbation. She reveals her last year and agrees that she may be depressed due to this. She was placed on Bipap in the ER and diuretics which improved her symptoms, since weaned off to NC. She last saw Dr. Sage in office 02/01/2019. - History Source History Provided By: Patient Limitations to Obtaining History: No Limitations - Past Medical History Cardio/Vascular: Yes: CAD, CHF, HTN, Hyperlipdemia Pulmonary: Yes: Other (Stable lung nodules) Gastrointestinal: Yes: Diverticulosis, Gastritis ...: No Psych: Yes: Anxiety Endocrine: Yes: Diabetes Mellitus - Past Surgical History Past Surgical History: Yes: CABG, Hysterectomy - Alcohol/Substance Use Hx Alcohol Use: No History of Substance Use: reports: None - Smoking History Smoking history: Former smoker Have you smoked in the past 12 months: No Aproximately how many cigarettes per day: 0 If you are a former smoker, when did you quit?: 1981 - Social History ADL: Independent 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 History of Recent Travel: No Home Medications - Allergies Allergies/Adverse Reactions: Allergies Allergy/AdvReac Type Severity Reaction Status Date / Time pollen extracts Allergy Unknown Verified 02/01/19 18:48 HONEYDEW Allergy Severe Difficulty Uncoded 02/01/19 18:48 Breathing HAYFEVER,GRASS,POLLEN Allergy Uncoded 02/01/19 18:48 - Home Medications Home Medications: Ambulatory Orders Ranolazine [Ranexa] 500 mg PO BID 11/25/11 Folic Acid - 400 mcg PO DAILY 02/16/12 Tiotropium [place] [Spiriva] 18 mcg IH DAILY PRN 02/09/15 Warfarin Na [Coumadin -] 4 mg PO DAILY 08/12/15 Albuterol Sulfate [Proair Respiclick] 90 mcg IH BID PRN 03/18/16 Beclomethasone Dipropionate [Qvar] 0.04 mg IH BID 03/18/16 Furosemide [Lasix -] 40 mg PO DAILY 03/18/16 Glucosamine/D3/Boswellia Eda [Osteo Bi-Flex Caplet] 1 tab PO BID 03/18/16 Iron,Carbonyl [Feosol] 65 mg PO DAILY 03/18/16 Mometasone Furoate [Asmanex] 220 mcg IH BID PRN 03/18/16 Amiodarone HCl 200 mg PO BID 02/01/19 Atorvastatin Ca [Lipitor] 80 mg PO HS 02/01/19 Cyanocobalamin (Vitamin B-12) [Vitamin B-12] 1,000 mcg PO DAILY 02/01/19 Icosapent Ethyl [Vascepa] 2 gm PO BID 02/01/19 Iron Polysacch/Iron Heme Polyp [Feosol Bifera 28 mg Caplet] 28 mg PO DAILY 02/01 Losartan Potassium 25 mg PO DAILY 02/01/19 Metoprolol Succinate [Toprol Xl] 50 mg PO BID 02/01/19 Sitagliptin Phos/Metformin HCl [Janumet 50-1,000 mg Tablet] 1 each PO BID Vitamin E 100 unit PO DAILY 02/01/19 Family Disease History - Family Disease History Family Disease History: Diabetes: Mother, Heart Disease: Mother Review of Systems - Review of Systems Cardiovascular: reports: Edema Respiratory: reports: Exercise Intolerance, Orthopnea, PND, SOB, SOB on Exertion Vital Signs: Vital Signs Temperature 98.2 F 02/02/19 06:41 Pulse Rate 98 H 02/02/19 06:41 Respiratory Rate 20 02/02/19 06:41 Blood Pressure 121/75 02/02/19 06:41 O2 Sat by Pulse Oximetry (%) 99 02/02/19 08:17 Constitutional: Yes: No Distress, Calm Neck: Yes: Supple Respiratory: Yes: Regular, Diminished, On Nasal O2 Gastrointestinal: Yes: Soft, Hypoactive Bowel Sounds Cardiovascular: Yes: Tachycardia, Pulse Irregular JVD: No Carotid Bruit: No Heart Sounds: Yes: S1, S2 Murmur: Yes: Systolic Murmur, Grade 1 Edema: Yes Edema: LLE: Trace, RLE: Trace - Other Data Labs, Other Data: CBC, BMP 02/02/19 05:15 02/02/19 05:15 INR, PTT INR 1.17 (0.83-1.09) H 02/02/19 05:15 Troponin, BNP 02/01/19 02/01/19 02/01/19 18:24 18:24 22:35 Troponin I < 0.02 < 0.02 B-Natriuretic Peptide 4315.7 H Troponin, BNP 02/01/19 02/01/19 02/01/19 18:24 18:24 22:35 Troponin I < 0.02 < 0.02 B-Natriuretic Peptide 4315.7 H Afib @ 134 Ejection Fraction %: LVEF > or = 40 % Imaging - Results Chest X-ray: Report Reviewed (Congestion) Problem List - Problems (1) Hyperlipidemia Code(s): E78.5 - HYPERLIPIDEMIA, UNSPECIFIED Qualifiers: Hyperlipidemia type: mixed hyperlipidemia Qualified Code(s): E78.2 - Mixed hyperlipidemia (2) Shortness of breath Code(s): R06.02 - SHORTNESS OF BREATH (3) Subtherapeutic international normalized ratio (INR) Code(s): R79.1 - ABNORMAL COAGULATION PROFILE (4) CHF (congestive heart failure) Code(s): I50.9 - HEART FAILURE, UNSPECIFIED Qualifiers: Heart failure type: diastolic Heart failure chronicity: acute on chronic Qualified Code(s): I50.33 - Acute on chronic diastolic (congestive) heart failure (5) Diabetes Code(s): E11.9 - TYPE 2 DIABETES MELLITUS WITHOUT COMPLICATIONS Qualifiers: Diabetes mellitus type: type 2 Diabetes 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 use: without chcf use (6) Hx of CABG Code(s): Z95.1 - PRESENCE OF AORTOCORONARY BYPASS GRAFT (7) Hypertension Code(s): I10 - ESSENTIAL (PRIMARY) HYPERTENSION Qualifiers: Hypertension type: essential hypertension Qualified Code(s): I10 - Essential (primary) hypertension (8) Pleural effusion Code(s): J90 - PLEURAL EFFUSION, NOT ELSEWHERE CLASSIFIED (9) Rddih-ej-krqgdlm kidney injury Code(s): N17.9 - ACUTE KIDNEY FAILURE, UNSPECIFIED; N18.9 - CHRONIC KIDNEY DISEASE, UNSPECIFIED Qualifiers: Chronic kidney disease stage: stage 2 (mild) (10) Paroxysmal atrial fibrillation with rapid ventricular response Code(s): I48.0 - PAROXYSMAL ATRIAL FIBRILLATION Assessment/Plan 02/02/2019 Chest CTA: No PE, increased bilateral pleural effusions R>L c/w pulm vascular congestion 02/01/2019 Lexiscan Myoview: No ischemia, LVEF 48% 12/08/2018 Echo: cLVH with normal LVEF 65-70%, mild LAE 4.6 cm, mild CHILO, normal RV size and fxn, mild MR, mild-mod TR RVSP 31 mmHg 1. Acute hypoxic respiratory failure referable to 2. Acute on chronic diastolic heart failure and bilateral pleural effusions R>L due to medication and diet noncompliance 3. Paroxysmal afib with RVR with subtherapeutic INR 4. CAD s/p CABG, PCI 2013 5. Type 2 DM 6. Hyperlipidemia 7. Acute on CKD referable to CHF 8. Hypertensive heart disease 9. UTI 10. Chronic anemia h/o diverticulosis and gastritis 11. RESTREPO with cirrhosis 12. COPD P:1. IV diuresis with monitor diuretic response, renal fxn and electrolytes 2. Continue Toprol XL 50 bid, amio 200 bid, Lipitor 80 qhs, Ranexa 500 bid, Vascepa 2 bid, resume losartan 25 qd and Januvamet bid once renal fxn stablilizes 3. BD, O2, NIPPV as needed 4. F/u echocardiogram, outpatient stress test results 5. Coumadin per INR 2-3 6. Empiric abx course, again counselled on diet and medication compliance 7. Thank you for consultative opportunity
--- NOTE | 2019-02-02 12:47 | ECHO ---
Name: MILTON WYMAN Exam:Adult Echocardiogram Study Date: 02/02/2019 09:07 AM Age: 83 yrs Reason For Study: CHF Height: 65 in Weight: 150 lb BSA: 1.8 m2 MMode/2D Measurements & Calculations IVSd: 1.3 cm Ao root diam: 2.5 cm LVIDd: 3.6 cm LA dimension: 3.8 cm LVIDs: 2.7 cm LVPWd: 1.2 cm EDV(Teich): 54.0 ml LVOT diam: 2.0 cm ESV(Teich): 26.2 ml Doppler Measurements & Calculations MV E max ulises: 111.0 cm/sec Ao V2 max: 177.8 cm/sec MV dec time: 0.15 sec Ao max P.6 mmHg LIZ(V,D): 0.71 cm2 LV V1 max P.60 mmHg MR max ulises: 227.7 cm/sec LV V1 max: 38.8 cm/sec MR max P.7 mmHg TR max ulises: 238.9 cm/sec PA V2 max: 116.7 cm/sec TR max P.0 mmHg PA max P.5 mmHg Med Peak E' Ulises: 8.2 cm/sec PI Vmax: 95.0 cm/sec Med E/e': 13.6 Lat Peak E' Ulises: 6.4 cm/sec Lat E/e': 17.3 Procedure A complete two-dimensional transthoracic echocardiogram was performed (2D, M-mode, Doppler and color flow Doppler). Left Ventricle There is mild concentric left ventricular hypertrophy. The left ventricular ejection fraction is norm al. Ejection Fraction = 55-60%. No regional wall motion abnormalities noted. Right Ventricle The right ventricle is normal in size and function. Atria The left atrium is mildly dilated. Right atrial size is normal. Mitral Valve There is no mitral regurgitation noted. Tricuspid Valve There is trace tricuspid regurgitation. Right ventricular systolic pressure is normal. Aortic Valve Mild valvular aortic stenosis. No aortic regurgitation is present. Pulmonic Valve There is no pulmonic valvular regurgitation. Great Vessels The aortic root is normal size. Pericardium/Pleura There is no pericardial effusion. There is a pleural effusion present. Interpretation Summary There is mild concentric left ventricular hypertrophy. The left ventricular ejection fraction is normal. The right ventricle is normal in size and function. The left atrium is mildly dilated. There is trace tricuspid regurgitation. Mild valvular aortic stenosis. There is a pleural effusion present. MD Rodney Muhammad 02/02/2019 12:46 PM
--- NOTE | 2019-02-02 13:38 | EKG ---
Test Reason : Blood Pressure : / mmHG Vent. Rate : 110 BPM Atrial Rate : 105 BPM P-R Int : 000 ms QRS Dur : 086 ms QT Int : 340 ms P-R-T Axes : 000 090 146 degrees QTc Int : 460 ms POOR DATA QUALITY, INTERPRETATION MAY BE ADVERSELY AFFECTED ATRIAL FIBRILLATION WITH RAPID VENTRICULAR RESPONSE WITH PREMATURE VENTRICULAR OR ABERRANTLY CONDUCTED COMPLEXES RIGHTWARD AXIS LOW VOLTAGE QRS NONSPECIFIC ST AND T WAVE ABNORMALITY ABNORMAL ECG WHEN COMPARED WITH ECG OF 01-FEB-2019 18:13, ATRIAL FIBRILLATION HAS REPLACED SINUS RHYTHM NONSPECIFIC T WAVE ABNORMALITY, WORSE IN LATERAL LEADS Confirmed by CLAUDINE CALLAHAN MD ([id number]) on 02/02/2019 1:38:44 PM Referred By: Confirmed By:CLAUDINE CALLAHAN MD
--- NOTE | 2019-02-02 13:41 | EKG ---
Test Reason : Blood Pressure : / mmHG Vent. Rate : 134 BPM Atrial Rate : 110 BPM P-R Int : 064 ms QRS Dur : 096 ms QT Int : 332 ms P-R-T Axes : 000 080 033 degrees QTc Int : 495 ms ATRIAL FIBRILLATION WITH RAPID VENTRICULAR RESPONSE LOW VOLTAGE QRS NONSPECIFIC ST AND T WAVE ABNORMALITY ABNORMAL ECG Confirmed by LONDON SANCHEZ, CLAUDINE ([id number]) on 02/02/2019 1:40:44 PM Referred By: Confirmed By:CLAUDINE CALLAHAN MD
--- NOTE | 2019-02-02 14:06 | PN ---
Physical Exam: SUBJECTIVE: Patient seen and examined resting in bed nad. afebrile hemdynamically stable. af rvr 130's on tele overnight. states she feels a little less sob OBJECTIVE: Vital Signs Period Temp Pulse Resp BP Sys/Cortes Pulse Ox Last 24 Hr 97.8 F-98.2 F 90-150 16-28 104-154/58-117 95-100 GENERAL: The patient is awake, alert, and fully oriented, in no acute distress. HEAD: Normal with no signs of trauma. EYES: PERRL, extraocular movements intact, sclera anicteric, conjunctiva clear. No ptosis. ENT: moist mucous membranes. NECK: supple + JVD LUNGS:decreased breath souns r>l HEART: irregular s1s2 ABDOMEN: Soft, obese, nontender, nondistended, normoactive bowel sounds, no guarding, no rebound no mass EXTREMITIES: 2+ pulses, warm, well-perfused, no edema. NEUROLOGICAL: Cranial nerves II through XII grossly intact. Normal speech, gait not observed. PSYCH: Normal mood, normal affect. SKIN: Warm, dry Laboratory Results - last 24 hr 02/01/19 02/01/19 02/01/19 18:24 18:24 18:24 WBC 6.5 RBC 3.55 L Hgb 10.9 Hct 32.4 MCV 91.3 MCH 30.7 MCHC 33.6 RDW 16.0 H Plt Count 255 MPV 8.5 Absolute Neuts (auto) 5.5 Neutrophils % 83.4 H Lymphocytes % 7.3 L D Monocytes % 6.5 Eosinophils % 2.0 Basophils % 0.8 Nucleated RBC % 0 PT with INR 13.70 H INR 1.16 H PTT (Actin FS) Sodium 140 Potassium 4.5 Chloride 107 Carbon Dioxide 26 Anion Gap 7 L BUN 26.6 H Creatinine 1.3 Est GFR (CKD-EPI)AfAm 43.32 Est GFR (CKD-EPI)NonAf 37.38 POC Glucometer Random Glucose 151 H Calcium 9.9 Phosphorus Magnesium 2.3 Total Bilirubin 0.6 AST 12 L ALT 19 Alkaline Phosphatase 94 Creatine Kinase 67 Troponin I < 0.02 B-Natriuretic Peptide Total Protein 7.1 Albumin 3.4 Triglycerides Cholesterol Total LDL Cholesterol HDL Cholesterol TSH Urine Color Urine Appearance Urine pH Ur Specific [place] Urine Protein Urine Glucose (UA) Urine Ketones Urine Blood Urine Nitrite Urine Bilirubin Urine Urobilinogen Ur Leukocyte Esterase Urine WBC (Auto) Urine RBC (Auto) Urine Casts (Auto) U Pathogenic Cast Auto U Epithel Cells (Auto) Urine Bacteria (Auto) 02/01/19 02/01/19 02/02/19 18:24 22:35 00:20 WBC RBC Hgb Hct MCV MCH MCHC RDW Plt Count MPV Absolute Neuts (auto) Neutrophils % Lymphocytes % Monocytes % Eosinophils % Basophils % Nucleated RBC % PT with INR INR PTT (Actin FS) Sodium Potassium Chloride Carbon Dioxide Anion Gap BUN Creatinine Est GFR (CKD-EPI)AfAm Est GFR (CKD-EPI)NonAf POC Glucometer Random Glucose Calcium Phosphorus Magnesium Total Bilirubin AST ALT Alkaline Phosphatase Creatine Kinase 74 Troponin I < 0.02 B-Natriuretic Peptide 4315.7 H Total Protein Albumin Triglycerides Cholesterol Total LDL Cholesterol HDL Cholesterol TSH Urine Color Yellow Urine Appearance Clear Urine pH 5.0 Ur Specific [place] 1.011 Urine Protein Negative Urine Glucose (UA) Negative Urine Ketones Negative Urine Blood Trace Urine Nitrite Positive H Urine Bilirubin Negative Urine Urobilinogen 0.2 Ur Leukocyte Esterase Negative Urine WBC (Auto) 1 Urine RBC (Auto) 0 Urine Casts (Auto) 0 U Pathogenic Cast Auto No Result Required. U Epithel Cells (Auto) 0.3 Urine Bacteria (Auto) 1786.6 02/02/19 02/02/19 02/02/19 00:21 05:15 05:15 WBC 6.0 RBC 3.40 L Hgb 10.5 L Hct 30.8 L MCV 90.4 MCH 31.0 MCHC 34.2 RDW 15.8 H Plt Count 278 MPV 8.5 Absolute Neuts (auto) Neutrophils % Lymphocytes % Monocytes % Eosinophils % Basophils % Nucleated RBC % PT with INR 13.80 H INR 1.17 H PTT (Actin FS) 39.1 H Sodium Potassium Chloride Carbon Dioxide Anion Gap BUN Creatinine Est GFR (CKD-EPI)AfAm Est GFR (CKD-EPI)NonAf POC Glucometer 170 Random Glucose Calcium Phosphorus Magnesium Total Bilirubin AST ALT Alkaline Phosphatase Creatine Kinase Troponin I B-Natriuretic Peptide Total Protein Albumin Triglycerides Cholesterol Total LDL Cholesterol HDL Cholesterol TSH Urine Color Urine Appearance Urine pH Ur Specific [place] Urine Protein Urine Glucose (UA) Urine Ketones Urine Blood Urine Nitrite Urine Bilirubin Urine Urobilinogen Ur Leukocyte Esterase Urine WBC (Auto) Urine RBC (Auto) Urine Casts (Auto) U Pathogenic Cast Auto U Epithel Cells (Auto) Urine Bacteria (Auto) 02/02/19 02/02/19 05:15 12:04 WBC RBC Hgb Hct MCV MCH MCHC RDW Plt Count MPV Absolute Neuts (auto) Neutrophils % Lymphocytes % Monocytes % Eosinophils % Basophils % Nucleated RBC % PT with INR INR PTT (Actin FS) Sodium 142 Potassium 4.3 Chloride 105 Carbon Dioxide 31 Anion Gap 6 L BUN 24.9 H Creatinine 1.4 H Est GFR (CKD-EPI)AfAm 39.61 Est GFR (CKD-EPI)NonAf 34.18 POC Glucometer 118 Random Glucose 131 H Calcium 9.9 Phosphorus 3.3 Magnesium 2.2 Total Bilirubin 0.9 AST 10 L ALT 17 Alkaline Phosphatase 94 Creatine Kinase Troponin I B-Natriuretic Peptide Total Protein 7.0 Albumin 3.2 L Triglycerides 151 H Cholesterol 142 Total LDL Cholesterol 67 HDL Cholesterol 54 TSH 2.28 Urine Color Urine Appearance Urine pH Ur Specific [place] Urine Protein Urine Glucose (UA) Urine Ketones Urine Blood Urine Nitrite Urine Bilirubin Urine Urobilinogen Ur Leukocyte Esterase Urine WBC (Auto) Urine RBC (Auto) Urine Casts (Auto) U Pathogenic Cast Auto U Epithel Cells (Auto) Urine Bacteria (Auto) Active Medications Generic Name Dose Route Start Last Admin Trade Name Freq PRN Reason Stop Dose Admin Albuterol Sulfate 1 puff 02/01/19 21:10 Ventolin Hfa Inhaler - IH BID PRN SHORTNESS OF BREATH Amiodarone HCl 200 mg 02/01/19 22:00 02/02/19 10:12 Cordarone - PO 200 mg BID JENNY Administration Aspirin 81 mg 02/02/19 10:00 02/02/19 10:01 Ecotrin - PO 81 mg DAILY JENNY Administration Atorvastatin Calcium 80 mg 02/01/19 22:00 02/01/19 22:13 Lipitor - PO 80 mg HS JENNY Administration Enoxaparin Sodium 60 mg 02/02/19 10:00 02/02/19 10:02 Lovenox - SQ 60 mg BID JENNY Administration Furosemide 40 mg 02/02/19 14:00 Lasix Injection - IVPUSH BID@0600,1400 JENNY Ceftriaxone Sodium 1 gm/ 50 mls @ 100 mls/hr 02/02/19 10:00 02/02/19 10:11 Dextrose IVPB 100 mls/hr DAILY JENNY Administration Protocol Insulin Aspart 1 vial 02/02/19 02:00 02/02/19 12:22 Novolog Vial Sliding Scale - SQ Not Given Q4HPO [facility] Protocol Metoprolol Succinate 50 mg 02/01/19 23:00 02/02/19 10:01 Toprol Xl - PO 50 mg BID JENNY Administration Ranolazine 500 mg 02/01/19 22:00 02/02/19 10:01 Ranexa - PO 500 mg BID JENNY Administration Warfarin Sodium 2 mg 02/02/19 18:00 Coumadin - PO DAILY@1800 [facility] ASSESSMENT/PLAN: Acute hypoxic respiratory failure due to HFPEF exacerbation caused by dietary indiscretion and AF RVR Pleural effusions R>L Paroxysmal AF RVR Subtherapeutic inr TYLER on ckd due to chf asymptomatic pyuria anemia copd CAD s/p stents 2013 and CABG DM2 HTN HLD RESTREPO with cirrhosis -TTE normal ef, mild lvh (appears to be new compared to past) -stress LEXIscan 02/01 No ischemia, LVEF 48% -Chest CTA No PE, increased bilateral pleural effusions R>L c/w pulm vascular congestion -continue IV lasix,s trict i and o, daily weight, limit fluid intake to 1l/d -continue toprol 50 bid and amiodarone 200 bid for rate control and rhythm control -cwlipitor 80, Ranexa 500 bid, Vascepa 2 bid, -hold losartan 25 qd and Januvamet until creat is at baseline -continue oumadin INR goal 2-3 Visit type - Emergency Visit Emergency Visit: Yes ED Registration Date: 02/01/19 Care time: The patient presented to the Emergency Department on the above date and was hospitalized for further evaluation of their emergent condition. - New Patient This patient is new to me today: Yes Date on this admission: 02/02/19 - Critical Care Critical Care patient: No - Discharge Referral Referred to [facility] Med [facility].: No
[2019-02-02] MEDS: FUROSEMIDE 40 MG/4 ML INJECTABLE VIAL IVPUSH SCH (15:54)
[2019-02-02] MEDS ORDERED: WARFARIN NA 2 MG TABLET (UD) PO SCH ×2 (16:00→18:00)
[2019-02-02] MEDS ORDERED: WARFARIN NA 2 MG TABLET (UD) PO ONE (20:22)
[2019-02-02] MEDS: ATORVASTATIN CA 80 MG TABLET (FP) PO SCH (21:35)
[2019-02-03] MEDS: INSULIN SLIDING SCALE (NOVOLOG) 1 VIAL SQ SCH ×4 (06:49→21:54)
[2019-02-03] MEDS: FUROSEMIDE 40 MG/4 ML INJECTABLE VIAL IVPUSH SCH (06:50)
[2019-02-03 06:58] LABS: HEMATOCRIT 32.7 % (32.4-45.2); HEMOGLOBIN 10.9 GM/dL (10.7-15.3); MCH 30.4 pg (25.7-33.7); MCHC 33.3 g/dl (32.0-36.0); MEAN CELL VOLUME 91.3 fl (80-96); MEAN PLT VOLUME 8.8 fl (7.5-11.1); RBC 3.58 M/mm3 (3.60-5.2); RDW 15.8 % (11.6-15.6); WHITE BLOOD COUNT 6.4 K/mm3 (4.0-10.0)
[2019-02-03 07:19] LABS: BLOOD UREA NITROGEN 32.3 mg/dL (7-18); CALCIUM 9.8 mg/dL (8.5-10.1); CREATININE 1.6 mg/dL (0.55-1.3); MAGNESIUM 2.3 mg/dL (1.8-2.4); PHOSPHOROUS 3.7 mg/dL (2.5-4.9); POTASSIUM 4.5 mmol/L (3.5-5.1)
[2019-02-03 07:38] LABS: INR 1.14 (0.83-1.09); PROTHROMBIN TIME (PATIENT) 13.5 SEC (9.7-13.0)
[2019-02-03 07:47] LABS: PLATELET COUNT 277 K/MM3 (134-434)
--- NOTE | 2019-02-03 09:20 | PN ---
Progress Note, Physician History of Present Illness: LENTZ and orthopnea resolving with diuresis. - Current Medication List Current Medications: Active Medications Albuterol Sulfate (Ventolin Hfa Inhaler -) 1 puff IH BID PRN PRN Reason: SHORTNESS OF BREATH Amiodarone HCl (Cordarone -) 200 mg PO BID [facility] Last Admin: 02/02/19 21:35 Dose: 200 mg Aspirin (Ecotrin -) 81 mg PO DAILY [facility] Last Admin: 02/02/19 10:01 Dose: 81 mg Atorvastatin Calcium (Lipitor -) 80 mg PO HS [facility] Last Admin: 02/02/19 21:35 Dose: 80 mg Enoxaparin Sodium (Lovenox -) 60 mg SQ BID [facility] Last Admin: 02/02/19 21:36 Dose: 60 mg Furosemide (Lasix Injection -) 40 mg IVPUSH BID@0600,1400 [facility] Last Admin: 02/03/19 06:50 Dose: 40 mg Ceftriaxone Sodium 1 gm/ (Dextrose) 50 mls @ 100 mls/hr IVPB DAILY [facility]; Protocol Last Admin: 02/02/19 10:11 Dose: 100 mls/hr Insulin Aspart (Novolog Vial Sliding Scale -) 1 vial SQ ACHS [facility]; Protocol Last Admin: 02/03/19 06:49 Dose: Not Given Metoprolol Succinate (Toprol Xl -) 50 mg PO BID [facility] Last Admin: 02/02/19 21:35 Dose: 50 mg Ranolazine (Ranexa -) 500 mg PO BID [facility] Last Admin: 02/02/19 21:35 Dose: 500 mg Warfarin Sodium (Coumadin -) 6 mg PO DAILY@1800 [facility] - Objective Vital Signs: Vital Signs Temperature 97.4 F L 02/03/19 05:40 Pulse Rate 91 H 02/03/19 05:40 Respiratory Rate 20 02/03/19 08:09 Blood Pressure 125/76 02/03/19 05:40 O2 Sat by Pulse Oximetry (%) 100 02/03/19 08:09 Constitutional: Yes: No Distress, Calm Neck: Yes: Supple Cardiovascular: Yes: Pulse Irregular Respiratory: Yes: Regular, Diminished, On Nasal O2 Gastrointestinal: Yes: Normal Bowel Sounds, Soft Edema: No Labs: CBC, BMP 02/03/19 06:05 02/03/19 06:05 INR, PTT INR 1.14 (0.83-1.09) H 02/03/19 06:05 Problem List - Problems (1) Hyperlipidemia Code(s): E78.5 - HYPERLIPIDEMIA, UNSPECIFIED Qualifiers: Hyperlipidemia type: mixed hyperlipidemia Qualified Code(s): E78.2 - Mixed hyperlipidemia (2) Shortness of breath Code(s): R06.02 - SHORTNESS OF BREATH (3) Subtherapeutic international normalized ratio (INR) Code(s): R79.1 - ABNORMAL COAGULATION PROFILE (4) CHF (congestive heart failure) Code(s): I50.9 - HEART FAILURE, UNSPECIFIED Qualifiers: Heart failure type: diastolic Heart failure chronicity: acute on chronic Qualified Code(s): I50.33 - Acute on chronic diastolic (congestive) heart failure (5) Diabetes Code(s): E11.9 - TYPE 2 DIABETES MELLITUS WITHOUT COMPLICATIONS Qualifiers: Diabetes mellitus type: type 2 Diabetes mellitus half-way insulin use: without half-way use (6) Hx of CABG Code(s): Z95.1 - PRESENCE OF AORTOCORONARY BYPASS GRAFT (7) Hypertension Code(s): I10 - ESSENTIAL (PRIMARY) HYPERTENSION Qualifiers: Hypertension type: essential hypertension Qualified Code(s): I10 - Essential (primary) hypertension (8) Pleural effusion Code(s): J90 - PLEURAL EFFUSION, NOT ELSEWHERE CLASSIFIED (9) Ihuhl-hk-zbsbuqr kidney injury Code(s): N17.9 - ACUTE KIDNEY FAILURE, UNSPECIFIED; N18.9 - CHRONIC KIDNEY DISEASE, UNSPECIFIED Qualifiers: Chronic kidney disease stage: stage 2 (mild) (10) Paroxysmal atrial fibrillation with rapid ventricular response Code(s): I48.0 - PAROXYSMAL ATRIAL FIBRILLATION Assessment/Plan 02/02/2019 Chest CTA: No PE, increased bilateral pleural effusions R>L c/w pulm vascular congestion 02/01/2019 Lexiscan Myoview: No ischemia, LVEF 48% 02/02/2019 Echo: Mild cLVH normal LV and RV size and fxn, mild LAE, mild , tr TR RVSP 23 mmHg, pleural effusion 12/08/2018 Echo: cLVH with normal LVEF 65-70%, mild LAE 4.6 cm, mild CHILO, normal RV size and fxn, mild MR, mild-mod TR RVSP 31 mmHg 1. Acute hypoxic respiratory failure referable to 2. Acute on chronic diastolic heart failure and bilateral pleural effusions R>L due to medication and diet noncompliance with grieving of husbands passing 3. Paroxysmal afib with RVR with subtherapeutic INR 4. CAD s/p CABG, PCI 2013 5. Type 2 DM 6. Hyperlipidemia 7. Acute on CKD referable to CHF 8. Hypertensive heart disease 9. UTI 10. Chronic anemia h/o diverticulosis and gastritis 11. RESTREPO with cirrhosis 12. COPD P:1. Decrease IV diuresis with monitor diuretic response, renal fxn and electrolytes 2. Continue Toprol XL 50 bid, amio 200 bid, Lipitor 80 qhs, Ranexa 500 bid, Vascepa 2 bid, resume losartan 25 qd and Januvamet bid once renal fxn stablilizes 3. BD, O2, NIPPV as needed 4. Lovenox->Coumadin per INR 2-3 5. Empiric abx course, again counselled on diet and medication compliance
--- NOTE | 2019-02-03 09:50 | PN ---
Progress Note (short form) - Note Progress Note: Hospitalist to document today. Patient still grieving after the of her and has not been compliant with meds at home.
[2019-02-03] MEDS ORDERED: DEXTROSE 5%-WATER - 50 ML IVPB ONE (10:27)
[2019-02-03] MEDS ORDERED: cefTRIAXone SODIUM 1 GM VIAL ONE (10:27)
[2019-02-03] MEDS: ASPIRIN COATED 81 MG TABLET.EC PO SCH (11:00)
[2019-02-03] MEDS: AMIODARONE HCL 200 MG TABLET (FP) PO SCH ×2 (11:00→21:33)
[2019-02-03] MEDS: CEFTRIAXONE 1 GM in DEXTROSE 5%-WATER - 50 ML IVPB SCH (11:01)
[2019-02-03] MEDS: ENOXAPARIN NA (PORCINE) 60 MG/0.6 ML DISP.SYRIN SQ SCH ×2 (11:01→21:32)
--- NOTE | 2019-02-03 11:21 | PN ---
Physical Exam: SUBJECTIVE: Patient seen and examined, breathing improved, no new complaints. OBJECTIVE: Vital Signs Period Temp Pulse Resp BP Sys/Cortes Pulse Ox Last 24 Hr 97.0 F-98.4 F 90-130 18-20 99-125/49-77 100-100 Intake & Output 01/31/19 02/01/19 02/02/19 02/03/19 23:59 23:59 23:59 23:59 Intake Total 300 Output Total 50 Balance 250 Weight 150 lb 165 lb 6.4 oz 150 lb GENERAL: sitting in bed, breathing better, no use of accessory muscles of respiration noted today Neck: improved neck vein distension CVS:S1S2 irregular Chest; decreased breath sounds at bases, improved air entry Abdomen:Soft, NT, ND Extremities: 1+ pedal pitting edema Psych; pleasant, co-operative Laboratory Results - last 24 hr 02/02/19 02/02/19 02/02/19 12:04 16:45 21:44 WBC RBC Hgb Hct MCV MCH MCHC RDW Plt Count MPV PT with INR INR Sodium Potassium Chloride Carbon Dioxide Anion Gap BUN Creatinine Est GFR (CKD-EPI)AfAm Est GFR (CKD-EPI)NonAf POC Glucometer 118 144 156 Random Glucose Calcium Phosphorus Magnesium 02/03/19 02/03/19 02/03/19 05:38 06:05 06:05 WBC 6.4 RBC 3.58 L Hgb 10.9 Hct 32.7 MCV 91.3 MCH 30.4 MCHC 33.3 RDW 15.8 H Plt Count 277 MPV 8.8 PT with INR 13.50 H INR 1.14 H Sodium Potassium Chloride Carbon Dioxide Anion Gap BUN Creatinine Est GFR (CKD-EPI)AfAm Est GFR (CKD-EPI)NonAf POC Glucometer 123 Random Glucose Calcium Phosphorus Magnesium 02/03/19 06:05 WBC RBC Hgb Hct MCV MCH MCHC RDW Plt Count MPV PT with INR INR Sodium 138 Potassium 4.5 Chloride 102 Carbon Dioxide 32 Anion Gap 5 L BUN 32.3 H Creatinine 1.6 H Est GFR (CKD-EPI)AfAm 33.70 Est GFR (CKD-EPI)NonAf 29.08 POC Glucometer Random Glucose 150 H Calcium 9.8 Phosphorus 3.7 Magnesium 2.3 Active Medications Generic Name Dose Route Start Last Admin Trade Name Freq PRN Reason Stop Dose Admin Albuterol Sulfate 1 puff 02/01/19 21:10 Ventolin Hfa Inhaler - IH BID PRN SHORTNESS OF BREATH Amiodarone HCl 200 mg 02/01/19 22:00 02/03/19 11:00 Cordarone - PO 200 mg BID JENNY Administration Aspirin 81 mg 02/02/19 10:00 02/03/19 11:00 Ecotrin - PO 81 mg DAILY JENNY Administration Atorvastatin Calcium 80 mg 02/01/19 22:00 02/02/19 21:35 Lipitor - PO 80 mg HS [facility] Administration Enoxaparin Sodium 60 mg 02/02/19 10:00 02/03/19 11:01 Lovenox - SQ 60 mg BID JENNY Administration Furosemide 40 mg 02/04/19 10:00 Lasix Injection - IVPUSH DAILY [facility] Ceftriaxone Sodium 1 gm/ 50 mls @ 100 mls/hr 02/02/19 10:00 02/03/19 11:01 Dextrose IVPB 100 mls/hr DAILY [facility] Administration Protocol Insulin Aspart 1 vial 02/03/19 07:00 02/03/19 06:49 Novolog Vial Sliding Scale - SQ Not Given ACHS [facility] Protocol Metoprolol Succinate 50 mg 02/01/19 23:00 02/03/19 11:00 Toprol Xl - PO 50 mg BID [facility] Administration Ranolazine 500 mg 02/01/19 22:00 02/02/19 21:35 Ranexa - PO 500 mg BID [facility] Administration Warfarin Sodium 6 mg 02/03/19 18:00 Coumadin - PO DAILY@1800 [facility] Home Medications Medication Instructions Recorded Ranolazine [Ranexa] 500 mg PO BID 11/25/11 Folic Acid - 400 mcg PO DAILY 02/16/12 Tiotropium [place] [Spiriva] 18 mcg IH DAILY PRN 02/09/15 Warfarin Na [Coumadin -] 4 mg PO DAILY 08/12/15 Albuterol Sulfate [Proair 90 mcg IH BID PRN 03/18/16 Respiclick] Beclomethasone Dipropionate [Qvar] 0.04 mg IH BID 03/18/16 Furosemide [Lasix -] 40 mg PO DAILY 03/18/16 Glucosamine/D3/Boswellia Eda 1 tab PO BID 03/18/16 [Osteo Bi-Flex Caplet] Iron,Carbonyl [Feosol] 65 mg PO DAILY 08/10/16 Mometasone Furoate [Asmanex] 220 mcg IH BID PRN 03/18/16 Amiodarone HCl 200 mg PO BID 02/01/19 Atorvastatin Ca [Lipitor] 80 mg PO HS 02/01/19 Cyanocobalamin (Vitamin B-12) 1,000 mcg PO DAILY 02/01/19 [Vitamin B-12] Icosapent Ethyl [Vascepa] 2 gm PO BID 02/01/19 Iron Polysacch/Iron Heme Polyp 28 mg PO DAILY 02/01/19 [Feosol Bifera 28 mg Caplet] Losartan Potassium 25 mg PO DAILY 02/01/19 Metoprolol Succinate [Toprol Xl] 50 mg PO BID 02/01/19 Sitagliptin Phos/Metformin HCl 1 each PO BID 02/01/19 [Janumet 50-1,000 mg Tablet] Vitamin E 100 unit PO DAILY 02/01/19 Microbiology 02/02/19 00:20 Urine - Urine Clean Catch Urine Culture - Preliminary Lactose Fermenting Neg Bacilli ASSESSMENT/PLAN: 83 yof with PMHx of CAD, s/p PCI, CABG (2003), DCHF, Afib on coumadin, HTN, NIDDM, Hyperlipdemia, chronic right sided pleural effusions s/p thoracocentesis , diverticulosis, gastritis, chronic anemia, RESTREPO with cirrhosis, and anxiety admitted with dyspnea. 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 Cr rising Cardiology input noted, change lasix to 40 mg IV daily. Strict I/os, daily weights. 2D echo noted. HR improved, Continue amiodarone, (started 02/01). Continue toprol XL 50 mg BID, ASA/statin/ranexa Increase coumadin 6 mg daily, lovenox BID. Resume ARB and janumet when renal function stable ISS, diabetic diet. CHF education QFT sent, follow up. DVTPPX as above Dispo pending clinical improvement. PT eval in 24 hours if continues to improve SNF vs home with services Plan discussed with patient and RN in detail, all questions answered. Visit type - Emergency Visit Emergency Visit: Yes ED Registration Date: 02/01/19 Care time: The patient presented to the Emergency Department on the above date and was hospitalized for further evaluation of their emergent condition. - New Patient This patient is new to me today: No - Critical Care Critical Care patient: No - Discharge Referral Referred to [facility] Med P.C.: No
[2019-02-03] MEDS: RANOLAZINE E.R. 500 MG TABLET (FP) PO SCH ×2 (11:45→21:31)
[2019-02-03] MEDS ORDERED: INSULIN (NOVOLOG) ASPART 100 UNITS/ML 10ML VIAL ONE (16:53)
[2019-02-03] MEDS: WARFARIN NA 2 MG TABLET (UD) PO SCH (17:37)
[2019-02-03] MEDS: ATORVASTATIN CA 80 MG TABLET (FP) PO SCH (21:32)
[2019-02-03 21:45] VITALS: BMI 25.0
[2019-02-04] MEDS: INSULIN SLIDING SCALE (NOVOLOG) 1 VIAL SQ SCH ×4 (06:02→21:49)
[2019-02-04 07:08] LABS: INR 1.23 (0.83-1.09); PROTHROMBIN TIME (PATIENT) 14.5 SEC (9.7-13.0)
[2019-02-04 07:27] LABS: BLOOD UREA NITROGEN 34.9 mg/dL (7-18); CALCIUM 9.7 mg/dL (8.5-10.1); CREATININE 1.4 mg/dL (0.55-1.3); MAGNESIUM 2.2 mg/dL (1.8-2.4); PHOSPHOROUS 3.6 mg/dL (2.5-4.9)
[2019-02-04] MEDS ORDERED: cefTRIAXone SODIUM 1 GM VIAL ONE (09:26)
[2019-02-04] MEDS ORDERED: DEXTROSE 5%-WATER - 50 ML IVPB ONE (09:26)
[2019-02-04] MEDS: ENOXAPARIN NA (PORCINE) 60 MG/0.6 ML DISP.SYRIN SQ SCH ×2 (09:34→21:49)
[2019-02-04] MEDS: ASPIRIN COATED 81 MG TABLET.EC PO SCH (09:34)
[2019-02-04] MEDS: AMIODARONE HCL 200 MG TABLET (FP) PO SCH ×2 (09:34→21:49)
[2019-02-04] MEDS: CEFTRIAXONE 1 GM in DEXTROSE 5%-WATER - 50 ML IVPB SCH (09:34)
[2019-02-04] MEDS: RANOLAZINE E.R. 500 MG TABLET (FP) PO SCH ×2 (09:34→21:49)
[2019-02-04] MEDS ORDERED: FUROSEMIDE 40 MG/4 ML INJECTABLE VIAL IVPUSH SCH (10:00)
--- NOTE | 2019-02-04 14:33 | PN ---
Physical Exam: SUBJECTIVE: Patient seen and examined, breathing improved, no new complaints. OBJECTIVE: Vital Signs Period Temp Pulse Resp BP Sys/Cortes Pulse Ox Last 24 Hr 97.5 F-98.2 F 81-94 18-20 110-131/62-78 100-100 Intake & Output 02/01/19 02/02/19 02/03/19 02/04/19 23:59 23:59 23:59 23:59 Intake Total 300 250 100 Output Total 50 Balance 250 250 100 Weight 150 lb 165 lb 6.4 oz 150 lb 148 lb 9.6 oz GENERAL: The patient is awake, alert, and fully oriented, in no acute distress. HEAD: Normal with no signs of trauma. EYES: PERRL, extraocular movements intact, sclera anicteric, conjunctiva clear. No ptosis. ENT: Ears normal, nares patent, oropharynx clear without exudates, moist mucous membranes. NECK: Trachea midline, full range of motion, supple. LUNGS: Breath sounds equal, clear to auscultation bilaterally, no wheezes, no crackles, no accessory muscle use. HEART: Regular rate and rhythm, S1, S2 without murmur, rub or gallop. ABDOMEN: Soft, nontender, nondistended, normoactive bowel sounds, no guarding, no rebound, no hepatosplenomegaly, no masses. EXTREMITIES: 2+ pulses, warm, well-perfused, no edema. NEUROLOGICAL: Cranial nerves II through XII grossly intact. Normal speech, gait not observed. PSYCH: Normal mood, normal affect. SKIN: Warm, dry, normal turgor, no rashes or lesions noted Laboratory Results - last 24 hr 02/02/19 02/03/19 02/03/19 00:20 17:35 21:49 PT with INR INR Sodium Potassium Chloride Carbon Dioxide Anion Gap BUN Creatinine Est GFR (CKD-EPI)AfAm Est GFR (CKD-EPI)NonAf POC Glucometer 145 168 Random Glucose Calcium Phosphorus Magnesium TB Test (QFT) Nil 0.06 TB Test (QFT) Mitogen >10.00 TB Test (QFT) Antigen 0.06 TB Test (QFT) Negative TB Positive Criteria 02/04/19 02/04/19 02/04/19 05:52 06:10 06:10 PT with INR 14.50 H INR 1.23 H Sodium 139 Potassium 4.0 Chloride 103 Carbon Dioxide 29 Anion Gap 7 L BUN 34.9 H Creatinine 1.4 H Est GFR (CKD-EPI)AfAm 39.61 Est GFR (CKD-EPI)NonAf 34.18 POC Glucometer 137 Random Glucose 139 H Calcium 9.7 Phosphorus 3.6 Magnesium 2.2 TB Test (QFT) Nil TB Test (QFT) Mitogen TB Test (QFT) Antigen TB Test (QFT) TB Positive Criteria Active Medications Generic Name Dose Route Start Last Admin Trade Name Freq PRN Reason Stop Dose Admin Albuterol Sulfate 1 puff 02/01/19 21:10 Ventolin Hfa Inhaler - IH BID PRN SHORTNESS OF BREATH Amiodarone HCl 200 mg 02/01/19 22:00 02/04/19 09:34 Cordarone - PO 200 mg BID JENNY Administration Aspirin 81 mg 02/02/19 10:00 02/04/19 09:34 Ecotrin - PO 81 mg DAILY JENNY Administration Atorvastatin Calcium 80 mg 02/01/19 22:00 02/03/19 21:32 Lipitor - PO 80 mg HS JENNY Administration Enoxaparin Sodium 60 mg 02/02/19 10:00 02/04/19 09:34 Lovenox - SQ 60 mg BID JENNY Administration Furosemide 40 mg 02/04/19 10:00 02/04/19 09:34 Lasix Injection - IVPUSH 40 mg DAILY JENNY Administration Insulin Aspart 1 vial 02/03/19 07:00 02/04/19 13:20 Novolog Vial Sliding Scale - SQ Not Given ACHS [facility] Protocol Metoprolol Succinate 50 mg 02/01/19 23:00 02/04/19 09:34 Toprol Xl - PO 50 mg BID JENNY Administration Ranolazine 500 mg 02/01/19 22:00 02/04/19 09:34 Ranexa - PO 500 mg BID JENNY Administration Warfarin Sodium 6 mg 02/03/19 18:00 02/03/19 17:37 Coumadin - PO 6 mg DAILY@1800 JENNY Administration Microbiology 02/02/19 00:20 Urine - Urine Clean Catch Urine Culture - Final Escherichia Coli ASSESSMENT/PLAN: 83 yof with PMHx of CAD, s/p PCI, CABG (2003), DCHF, Afib on coumadin, HTN, NIDDM, Hyperlipdemia, chronic right sided pleural effusions s/p thoracocentesis , diverticulosis, gastritis, chronic anemia, RESTREPO with cirrhosis, and anxiety admitted with dyspnea. 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 coli UTI -CAD s/p PCI, CABG 2013 -HTN -HLD -NIDDM -RESTREPO with cirrhosis -Chronic anemia -Gastritis -Pulmonary nodules Plan: Clinically improved. Cr improved. Cardiology input noted, Lasix to 40 mg IV daily. Strict I/os, daily weights. 2D echo noted. HR improved, Continue amiodarone, (started 02/01). Continue toprol XL 50 mg BID, ASA/statin/ranexa Increased coumadin 6 mg daily, lovenox BID. Resume ARB and janumet when renal function stable ISS, diabetic diet. CHF education QFT neg DVTPPX as above PT eval noted Dispo dc in 24-48 hours on PO lasix if continues to improve. Plan discussed with patient and RN in detail, all questions answered. Visit type - Emergency Visit Emergency Visit: Yes ED Registration Date: 02/01/19 Care time: The patient presented to the Emergency Department on the above date and was hospitalized for further evaluation of their emergent condition. - New Patient This patient is new to me today: No - Critical Care Critical Care patient: No - Discharge Referral Referred to [facility] Med P.C.: No
--- NOTE | 2019-02-04 15:22 | PN ---
Progress Note, Physician History of Present Illness: LENTZ and orthopnea resolving with diuresis. - Current Medication List Current Medications: Active Medications Albuterol Sulfate (Ventolin Hfa Inhaler -) 1 puff IH BID PRN PRN Reason: SHORTNESS OF BREATH Amiodarone HCl (Cordarone -) 200 mg PO BID [facility] Last Admin: 02/04/19 09:34 Dose: 200 mg Aspirin (Ecotrin -) 81 mg PO DAILY [facility] Last Admin: 02/04/19 09:34 Dose: 81 mg Atorvastatin Calcium (Lipitor -) 80 mg PO HS [facility] Last Admin: 02/03/19 21:32 Dose: 80 mg Cefuroxime Axetil (Ceftin -) 250 mg PO BID [facility] Stop: 02/05/19 22:01 Enoxaparin Sodium (Lovenox -) 60 mg SQ BID [facility] Last Admin: 02/04/19 09:34 Dose: 60 mg Furosemide (Lasix Injection -) 40 mg IVPUSH DAILY [facility] Last Admin: 02/04/19 09:34 Dose: 40 mg Insulin Aspart (Novolog Vial Sliding Scale -) 1 vial SQ [facility]; Protocol Last Admin: 02/04/19 13:20 Dose: Not Given Metoprolol Succinate (Toprol Xl -) 50 mg PO BID [facility] Last Admin: 02/04/19 09:34 Dose: 50 mg Ranolazine (Ranexa -) 500 mg PO BID [facility] Last Admin: 02/04/19 09:34 Dose: 500 mg Warfarin Sodium (Coumadin -) 6 mg PO DAILY@1800 [facility] Last Admin: 02/03/19 17:37 Dose: 6 mg - Objective Vital Signs: Vital Signs Temperature 98.7 F 02/04/19 14:00 Pulse Rate 93 H 02/04/19 14:00 Respiratory Rate 20 02/04/19 14:00 Blood Pressure 127/65 02/04/19 14:00 O2 Sat by Pulse Oximetry (%) 100 02/04/19 09:00 Constitutional: Yes: No Distress, Calm Neck: Yes: Supple Cardiovascular: Yes: Regular Rate and Rhythm Respiratory: Yes: Regular, CTA Bilaterally, On Nasal O2 Gastrointestinal: Yes: Normal Bowel Sounds, Soft Edema: No Labs: CBC, BMP 02/03/19 06:05 02/04/19 06:10 INR, PTT INR 1.23 (0.83-1.09) H 02/04/19 06:10 - ....Imaging EKG: Report Reviewed (Tele: Afpatsy) Problem List - Problems (1) Hyperlipidemia Code(s): E78.5 - HYPERLIPIDEMIA, UNSPECIFIED Qualifiers: Hyperlipidemia type: mixed hyperlipidemia Qualified Code(s): E78.2 - Mixed hyperlipidemia (2) Shortness of breath Code(s): R06.02 - SHORTNESS OF BREATH (3) Subtherapeutic international normalized ratio (INR) Code(s): R79.1 - ABNORMAL COAGULATION PROFILE (4) CHF (congestive heart failure) Code(s): I50.9 - HEART FAILURE, UNSPECIFIED Qualifiers: Heart failure type: diastolic Heart failure chronicity: acute on chronic Qualified Code(s): I50.33 - Acute on chronic diastolic (congestive) heart failure (5) Diabetes Code(s): E11.9 - TYPE 2 DIABETES MELLITUS WITHOUT COMPLICATIONS Qualifiers: Diabetes mellitus type: type 2 Diabetes mellitus [employer] insulin use: without 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 (6) Hx of CABG Code(s): Z95.1 - PRESENCE OF AORTOCORONARY BYPASS GRAFT (7) Hypertension Code(s): I10 - ESSENTIAL (PRIMARY) HYPERTENSION Qualifiers: Hypertension type: essential hypertension Qualified Code(s): I10 - Essential (primary) hypertension (8) Pleural effusion Code(s): J90 - PLEURAL EFFUSION, NOT ELSEWHERE CLASSIFIED (9) [id number] kidney injury Code(s): N17.9 - ACUTE KIDNEY FAILURE, UNSPECIFIED; N18.9 - CHRONIC KIDNEY DISEASE, UNSPECIFIED Qualifiers: Chronic kidney disease stage: stage 2 (mild) (10) Paroxysmal atrial fibrillation with rapid ventricular response Code(s): I48.0 - PAROXYSMAL ATRIAL FIBRILLATION Assessment/Plan 02/02/2019 Chest CTA: No PE, increased bilateral pleural effusions R>L c/w pulm vascular congestion 02/01/2019 Lexiscan Myoview: No ischemia, LVEF 48% 02/02/2019 Echo: Mild cLVH normal LV and RV size and fxn, mild LAE, mild , tr TR RVSP 23 mmHg, pleural effusion 12/08/2018 Echo: cLVH with normal LVEF 65-70%, mild LAE 4.6 cm, mild CHILO, normal RV size and fxn, mild MR, mild-mod TR RVSP 31 mmHg 1. Acute hypoxic respiratory failure referable to 2. Acute on chronic diastolic heart failure and bilateral pleural effusions R>L due to medication and diet noncompliance with grieving of husbands passing 3. Paroxysmal afib with RVR with subtherapeutic INR 4. CAD s/p CABG, PCI 2013 5. Type 2 DM 6. Hyperlipidemia 7. Acute on CKD referable to CHF +/- contrast induced nephropathy improved 8. Hypertensive heart disease 9. E. coli UTI 10. Chronic anemia h/o diverticulosis and gastritis 11. RESTREPO with cirrhosis 12. COPD P:1. Resume oral diuresis with monitor diuretic response, renal fxn and electrolytes 2. Continue Toprol XL 50 bid, amio 200 bid, Lipitor 80 qhs, Ranexa 500 bid, Vascepa 2 bid, resume losartan 25 qd and Januvamet bid as renal fxn stablilizes 3. BD, O2, NIPPV as needed 4. Lovenox->Coumadin per INR 2-3 5. Empiric abx course, again counselled on diet and medication compliance 6. D/c planning with f/u with Dr. Sage
[2019-02-04] MEDS: WARFARIN NA 2 MG TABLET (UD) PO SCH (17:24)
[2019-02-04] MEDS: ATORVASTATIN CA 80 MG TABLET (FP) PO SCH (21:49)
[2019-02-05] MEDS ORDERED: ACETAMINOPHEN 325 MG TABLET (FP) PO ONE (03:13)
[2019-02-05] MEDS: INSULIN SLIDING SCALE (NOVOLOG) 1 VIAL SQ SCH ×4 (07:00→22:16)
[2019-02-05 07:07] LABS: BLOOD UREA NITROGEN 37.7 mg/dL (7-18); CALCIUM 9.6 mg/dL (8.5-10.1); CREATININE 1.5 mg/dL (0.55-1.3); MAGNESIUM 2.5 mg/dL (1.8-2.4); PHOSPHOROUS 3.6 mg/dL (2.5-4.9); POTASSIUM 3.7 mmol/L (3.5-5.1)
[2019-02-05 07:12] LABS: INR 1.44 (0.83-1.09)
[2019-02-05] MEDS ORDERED: PT OWN MED DRAWER 7, Y5N ONE ×3 (09:01→22:14)
[2019-02-05] MEDS: CEFUROXIME AXETIL 250 MG TABLET PO SCH ×2 (09:41→22:15)
[2019-02-05] MEDS: ENOXAPARIN NA (PORCINE) 60 MG/0.6 ML DISP.SYRIN SQ SCH ×2 (09:41→22:15)
[2019-02-05] MEDS: ASPIRIN COATED 81 MG TABLET.EC PO SCH (09:42)
[2019-02-05] MEDS: AMIODARONE HCL 200 MG TABLET (FP) PO SCH ×2 (09:42→22:15)
[2019-02-05] MEDS: FUROSEMIDE 40 MG TABLET (FP) PO SCH (09:42)
[2019-02-05] MEDS: RANOLAZINE E.R. 500 MG TABLET (FP) PO SCH ×2 (09:42→22:15)
[2019-02-05] MEDS: LOSARTAN POTASSIUM 25 MG TABLET PO SCH (09:42)
--- NOTE | 2019-02-05 11:06 | PN ---
Physical Exam: SUBJECTIVE: Patient seen and examined OBJECTIVE: Vital Signs Period Temp Pulse Resp BP Sys/Cortes Pulse Ox Last 24 Hr 97.8 F-98.9 F 91-115 18-20 107-127/65-75 100 Intake & Output 02/02/19 02/03/19 02/04/19 02/05/19 23:59 23:59 23:59 23:59 Intake Total 300 250 350 100 Output Total 50 Balance 250 250 350 100 Weight 165 lb 6.4 oz 150 lb 148 lb 9.6 oz 147 lb 12.8 oz Physical exam: GENERAL: sitting in bed, breathing better, no use of accessory muscles of respiration noted today Neck: improved neck vein distension CVS:S1S2 irregular Chest; decreased breath sounds at bases, improved air entry Abdomen:Soft, NT, ND Extremities: 1+ pedal pitting edema Psych; pleasant, co-operative Laboratory Results - last 24 hr 02/02/19 02/04/19 02/04/19 00:20 16:35 21:45 PT with INR INR Sodium Potassium Chloride Carbon Dioxide Anion Gap BUN Creatinine Est GFR (CKD-EPI)AfAm Est GFR (CKD-EPI)NonAf POC Glucometer 231 141 Random Glucose Calcium Phosphorus Magnesium TB Test (QFT) Nil 0.06 TB Test (QFT) Mitogen >10.00 TB Test (QFT) Antigen 0.06 TB Test (QFT) Negative TB Positive Criteria 02/05/19 02/05/19 02/05/19 06:08 06:08 06:59 PT with INR 17.00 H INR 1.44 H Sodium 137 Potassium 3.7 Chloride 100 Carbon Dioxide 31 Anion Gap 6 L BUN 37.7 H Creatinine 1.5 H Est GFR (CKD-EPI)AfAm 36.44 Est GFR (CKD-EPI)NonAf 31.44 POC Glucometer 150 Random Glucose 146 H Calcium 9.6 Phosphorus 3.6 Magnesium 2.5 H TB Test (QFT) Nil TB Test (QFT) Mitogen TB Test (QFT) Antigen TB Test (QFT) TB Positive Criteria Active Medications Generic Name Dose Route Start Last Admin Trade Name Freq PRN Reason Stop Dose Admin Albuterol Sulfate 1 puff 02/01/19 21:10 Ventolin Hfa Inhaler - IH BID PRN SHORTNESS OF BREATH Amiodarone HCl 200 mg 02/01/19 22:00 02/05/19 09:42 Cordarone - PO 200 mg BID JENNY Administration Aspirin 81 mg 02/02/19 10:00 02/05/19 09:42 Ecotrin - PO 81 mg DAILY JENNY Administration Atorvastatin Calcium 80 mg 02/01/19 22:00 02/04/19 21:49 Lipitor - PO 80 mg HS JENNY Administration Cefuroxime Axetil 250 mg 02/05/19 10:00 02/05/19 09:41 Ceftin - PO 02/05/19 22:01 250 mg BID JENNY Administration Enoxaparin Sodium 60 mg 02/02/19 10:00 02/05/19 09:41 Lovenox - SQ 60 mg BID JENNY Administration Furosemide 40 mg 02/05/19 10:00 02/05/19 09:42 Lasix - PO 40 mg DAILY JENNY Administration Insulin Aspart 1 vial 02/03/19 07:00 02/05/19 07:00 Novolog Vial Sliding Scale - SQ Not Given ACHS [facility] Protocol Losartan Potassium 25 mg 02/05/19 10:00 02/05/19 09:42 Cozaar - PO 25 mg DAILY JENNY Administration Metoprolol Succinate 50 mg 02/01/19 23:00 02/05/19 09:42 Toprol Xl - PO 50 mg BID JENNY Administration Ranolazine 500 mg 02/01/19 22:00 02/05/19 09:42 Ranexa - PO 500 mg BID JENNY Administration Warfarin Sodium 6 mg 02/03/19 18:00 02/04/19 17:24 Coumadin - PO 6 mg DAILY@1800 JENNY Administration ASSESSMENT/PLAN: 83 yof with PMHx of CAD, s/p PCI, CABG (2003), DCHF, Afib on coumadin, HTN, NIDDM, Hyperlipdemia, chronic right sided pleural effusions s/p thoracocentesis , diverticulosis, gastritis, chronic anemia, RESTREPO with cirrhosis, and anxiety admitted with dyspnea. 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 coli UTI -CAD s/p PCI, CABG 2013 -HTN -HLD -NIDDM -RESTREPO with cirrhosis -Chronic anemia -Gastritis -Pulmonary nodules Plan: Clinically improved. Cr improved. Cardiology input noted, Lasix to 40 mg IV daily. Strict I/os, daily weights. 2D echo noted. HR 90-100s, occasional 120s, Continue amiodarone, (started 02/01)/Metoprolol. Continue toprol XL 50 mg BID, ASA/statin/ranexa Coumadin 6 mg daily, lovenox BID till INR > 2. Losartan resumed. Resume janumet when renal function stable ISS, diabetic diet. CHF education Cefuroxime (antibiotic day 11/11) QFT neg DVTPPX as above PT eval noted Dispo dc in 24-48 hours on PO lasix if continues to improve. Home oxygen needs assessment prior to dc. Plan discussed with patient and RN in detail, all questions answered. Visit type - Emergency Visit Emergency Visit: Yes ED Registration Date: 02/01/19 Care time: The patient presented to the Emergency Department on the above date and was hospitalized for further evaluation of their emergent condition. - New Patient This patient is new to me today: No - Critical Care Critical Care patient: No - Discharge Referral Referred to [facility] Med P.C.: No
[2019-02-05 13:15] LABS: BLOOD UREA NITROGEN 36.1 mg/dL (7-18); CREATININE 1.5 mg/dL (0.55-1.3); POTASSIUM 3.7 mmol/L (3.5-5.1)
[2019-02-05] MEDS: WARFARIN NA 2 MG TABLET (UD) PO SCH (17:14)
[2019-02-05] MEDS: ATORVASTATIN CA 80 MG TABLET (FP) PO SCH (22:15)
[2019-02-06] MEDS: INSULIN SLIDING SCALE (NOVOLOG) 1 VIAL SQ SCH ×4 (06:51→22:54)
[2019-02-06 08:09] LABS: INR 1.67 (0.83-1.09); PROTHROMBIN TIME (PATIENT) 19.8 SEC (9.7-13.0)
[2019-02-06 08:40] LABS: BLOOD UREA NITROGEN 32.7 mg/dL (7-18); CALCIUM 9.5 mg/dL (8.5-10.1); CREATININE 1.4 mg/dL (0.55-1.3); MAGNESIUM 2.4 mg/dL (1.8-2.4); PHOSPHOROUS 3.1 mg/dL (2.5-4.9)
[2019-02-06] MEDS: RANOLAZINE E.R. 500 MG TABLET (FP) PO SCH ×2 (10:05→22:54)
[2019-02-06] MEDS: LOSARTAN POTASSIUM 25 MG TABLET PO SCH (10:05)
[2019-02-06] MEDS: AMIODARONE HCL 200 MG TABLET (FP) PO SCH ×2 (10:05→22:54)
[2019-02-06] MEDS: ENOXAPARIN NA (PORCINE) 60 MG/0.6 ML DISP.SYRIN SQ SCH ×2 (10:05→22:55)
[2019-02-06] MEDS: ASPIRIN COATED 81 MG TABLET.EC PO SCH (10:05)
[2019-02-06] MEDS: FUROSEMIDE 40 MG TABLET (FP) PO SCH (10:05)
--- NOTE | 2019-02-06 12:06 | PN ---
Progress Note, Physician History of Present Illness: LENTZ and orthopnea resolving with diuresis. Tolerated ambulation with PT assistance. - Current Medication List Current Medications: Active Medications Albuterol Sulfate (Ventolin Hfa Inhaler -) 1 puff IH BID PRN PRN Reason: SHORTNESS OF BREATH Amiodarone HCl (Cordarone -) 200 mg PO BID [facility] Last Admin: 02/06/19 10:05 Dose: 200 mg Aspirin (Ecotrin -) 81 mg PO DAILY [facility] Last Admin: 02/06/19 10:05 Dose: 81 mg Atorvastatin Calcium (Lipitor -) 80 mg PO HS [facility] Last Admin: 02/05/19 22:15 Dose: 80 mg Enoxaparin Sodium (Lovenox -) 60 mg SQ BID [facility] Last Admin: 02/06/19 10:05 Dose: 60 mg Furosemide (Lasix -) 40 mg PO DAILY [facility] Last Admin: 02/06/19 10:05 Dose: 40 mg Insulin Aspart (Novolog Vial Sliding Scale -) 1 vial SQ [facility]; Protocol Last Admin: 02/06/19 11:49 Dose: 2 units Losartan Potassium (Cozaar -) 25 mg PO DAILY [facility] Last Admin: 02/06/19 10:05 Dose: 25 mg Metoprolol Succinate (Toprol Xl -) 50 mg PO BID [facility] Last Admin: 02/06/19 10:05 Dose: 50 mg Ranolazine (Ranexa -) 500 mg PO BID [facility] Last Admin: 02/06/19 10:05 Dose: 500 mg Warfarin Sodium (Coumadin -) 7.5 mg PO DAILY@1800 [facility] - Objective Vital Signs: Vital Signs Temperature 98.1 F 02/06/19 06:17 Pulse Rate 102 H 02/06/19 10:17 Respiratory Rate 20 02/06/19 06:17 Blood Pressure 119/73 02/06/19 06:17 O2 Sat by Pulse Oximetry (%) 96 02/06/19 10:17 Constitutional: Yes: No Distress, Calm Neck: Yes: Supple Cardiovascular: Yes: Pulse Irregular Respiratory: Yes: Regular, Diminished Gastrointestinal: Yes: Normal Bowel Sounds, Soft Edema: No Labs: CBC, BMP 02/03/19 06:05 02/06/19 06:30 INR, PTT INR 1.67 (0.83-1.09) H 02/06/19 06:30 - ....Imaging EKG: Report Reviewed (Tele: Rate-controlled afib) Problem List - Problems (1) Hyperlipidemia Code(s): E78.5 - HYPERLIPIDEMIA, UNSPECIFIED Qualifiers: Hyperlipidemia type: mixed hyperlipidemia Qualified Code(s): E78.2 - Mixed hyperlipidemia (2) Shortness of breath Code(s): R06.02 - SHORTNESS OF BREATH (3) Subtherapeutic international normalized ratio (INR) Code(s): R79.1 - ABNORMAL COAGULATION PROFILE (4) CHF (congestive heart failure) Code(s): I50.9 - HEART FAILURE, UNSPECIFIED Qualifiers: Heart failure type: diastolic Heart failure chronicity: acute on chronic Qualified Code(s): I50.33 - Acute on chronic diastolic (congestive) heart failure (5) Diabetes Code(s): E11.9 - TYPE 2 DIABETES MELLITUS WITHOUT COMPLICATIONS Qualifiers: Diabetes mellitus type: type 2 Diabetes mellitus residential insulin use: without residential use (6) Hx of CABG Code(s): Z95.1 - PRESENCE OF AORTOCORONARY BYPASS GRAFT (7) Hypertension Code(s): I10 - ESSENTIAL (PRIMARY) HYPERTENSION Qualifiers: Hypertension type: essential hypertension Qualified Code(s): I10 - Essential (primary) hypertension (8) Pleural effusion Code(s): J90 - PLEURAL EFFUSION, NOT ELSEWHERE CLASSIFIED (9) Ccilt-mz-tkvqjwg kidney injury Code(s): N17.9 - ACUTE KIDNEY FAILURE, UNSPECIFIED; N18.9 - CHRONIC KIDNEY DISEASE, UNSPECIFIED Qualifiers: Chronic kidney disease stage: stage 2 (mild) (10) Paroxysmal atrial fibrillation with rapid ventricular response Code(s): I48.0 - PAROXYSMAL ATRIAL FIBRILLATION Assessment/Plan 02/02/2019 Chest CTA: No PE, increased bilateral pleural effusions R>L c/w pulm vascular congestion 02/01/2019 Lexiscan Myoview: No ischemia, LVEF 48% 02/02/2019 Echo: Mild cLVH normal LV and RV size and fxn, mild LAE, mild , tr TR RVSP 23 mmHg, pleural effusion 12/08/2018 Echo: cLVH with normal LVEF 65-70%, mild LAE 4.6 cm, mild CHILO, normal RV size and fxn, mild MR, mild-mod TR RVSP 31 mmHg 1. Acute hypoxic respiratory failure referable to 2. Acute on chronic diastolic heart failure and bilateral pleural effusions R>L due to medication and diet noncompliance with grieving of husbands passing 3. Paroxysmal afib with RVR with subtherapeutic INR 4. CAD s/p CABG, PCI 2013 5. Type 2 DM 6. Hyperlipidemia 7. Acute on CKD referable to CHF +/- contrast induced nephropathy improved 8. Hypertensive heart disease 9. E. coli UTI 10. Chronic anemia h/o diverticulosis and gastritis 11. RESTREPO with cirrhosis 12. COPD P:1. Continue oral diuresis with monitor diuretic response, renal fxn and electrolytes 2. Continue Toprol XL 50 bid, amio 200 bid, Lipitor 80 qhs, Ranexa 500 bid, Vascepa 2 bid, losartan 25 qd and resume Januvamet bid as renal fxn stablilizes 3. BD, O2, NIPPV as needed 4. Lovenox->Coumadin per INR 2-3 5. Off empiric abx course, again counselled on diet and medication compliance 6. D/c planning with f/u with Dr. Sage
--- NOTE | 2019-02-06 17:54 | PN ---
Physical Exam: SUBJECTIVE: Patient seen and examined breathing improved, overall feels better. OBJECTIVE: Vital Signs Period Temp Pulse Resp BP Sys/Cortes Pulse Ox Last 24 Hr 97.6 F-98.4 F 78-106 18-20 102-128/60-80 96-100 Intake & Output 02/03/19 02/04/19 02/05/19 02/06/19 23:59 23:59 23:59 23:59 Intake Total 250 350 400 300 Balance 250 350 400 300 Weight 150 lb 148 lb 9.6 oz 147 lb 12.8 oz 147 lb 8 oz GENERAL: sitting in bed, no respiratory distress, able to speak in full sentences Neck: soft, supple, no JVD CVS:S1s2 irregular Chest: improved air entry, decreased breath sounds at bases but improved from prior abdomen:Soft, NT, ND, pos bowel sounds extremities: improved pedal edema Psych: pleasant, co-operative Laboratory Results - last 24 hr 02/05/19 02/06/19 02/06/19 22:09 06:30 06:30 PT with INR 19.80 H INR 1.67 H Sodium 139 Potassium 4.0 Chloride 102 Carbon Dioxide 32 Anion Gap 4 L BUN 32.7 H Creatinine 1.4 H Est GFR (CKD-EPI)AfAm 39.61 Est GFR (CKD-EPI)NonAf 34.18 POC Glucometer 137 Random Glucose 135 H Calcium 9.5 Phosphorus 3.1 Magnesium 2.4 02/06/19 02/06/19 02/06/19 06:50 11:48 17:12 PT with INR INR Sodium Potassium Chloride Carbon Dioxide Anion Gap BUN Creatinine Est GFR (CKD-EPI)AfAm Est GFR (CKD-EPI)NonAf POC Glucometer 147 173 148 Random Glucose Calcium Phosphorus Magnesium Active Medications Generic Name Dose Route Start Last Admin Trade Name Freq PRN Reason Stop Dose Admin Albuterol Sulfate 1 puff 02/01/19 21:10 Ventolin Hfa Inhaler - IH BID PRN SHORTNESS OF BREATH Amiodarone HCl 200 mg 02/01/19 22:00 02/06/19 10:05 Cordarone - PO 200 mg BID JENNY Administration Aspirin 81 mg 02/02/19 10:00 02/06/19 10:05 Ecotrin - PO 81 mg DAILY JENNY Administration Atorvastatin Calcium 80 mg 02/01/19 22:00 02/05/19 22:15 Lipitor - PO 80 mg HS JENNY Administration Enoxaparin Sodium 60 mg 02/02/19 10:00 02/06/19 10:05 Lovenox - SQ 60 mg BID JENNY Administration Furosemide 40 mg 02/05/19 10:00 02/06/19 10:05 Lasix - PO 40 mg DAILY JENNY Administration Insulin Aspart 1 vial 02/03/19 07:00 02/06/19 17:14 Novolog Vial Sliding Scale - SQ Not Given ACHS [facility] Protocol Losartan Potassium 25 mg 02/05/19 10:00 02/06/19 10:05 Cozaar - PO 25 mg DAILY JENNY Administration Metoprolol Succinate 50 mg 02/01/19 23:00 02/06/19 10:05 Toprol Xl - PO 50 mg BID JENNY Administration Ranolazine 500 mg 02/01/19 22:00 02/06/19 10:05 Ranexa - PO 500 mg BID JENNY Administration Warfarin Sodium 7.5 mg 02/06/19 18:00 02/06/19 17:26 Coumadin - PO 7.5 mg DAILY@1800 JENNY Administration ASSESSMENT/PLAN: 83 yof with PMHx of CAD, s/p PCI, CABG (2003), DCHF, Afib on coumadin, HTN, NIDDM, Hyperlipdemia, chronic right sided pleural effusions s/p thoracocentesis , diverticulosis, gastritis, chronic anemia, RESTREPO with cirrhosis, and anxiety admitted with dyspnea. 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 coli UTI -CAD s/p PCI, CABG 2013 -HTN -HLD -NIDDM -RESTREPO with cirrhosis -Chronic anemia -Gastritis -Pulmonary nodules Plan: Continues to improve, renal function stable. Cardiology input noted, Lasix changed to po 2D echo noted HR improved, cotninue amiodarone/toprol XL/ASA/statin/ranexa. Coumadin 7.5 mg today, INR in AM Lovenox while inhouse. Losartan resumed. Resume on dc ISS, diabetic diet. CHF education Cefuroxime (antibiotic day 12/11) QFT neg Stressed need for med compliance and INR check with patient. Discussed with Dr. Castillo, to arrange for INR check later this week. She agrees to the same Declines SNF, PT hever noted. No home oxygen needs noted. DVTPPX as above dc home with services in 24 hours if continues to improve. Plan discussed with patient, RN and PCP. Visit type - Emergency Visit Emergency Visit: Yes ED Registration Date: 02/01/19 Care time: The patient presented to the Emergency Department on the above date and was hospitalized for further evaluation of their emergent condition. - New Patient This patient is new to me today: No - Critical Care Critical Care patient: No - Discharge Referral Referred to [facility] Med P.C.: No
[2019-02-06] MEDS ORDERED: WARFARIN NA 7.5 MG TABLET (FP) PO SCH (18:00)
[2019-02-06] MEDS: ATORVASTATIN CA 80 MG TABLET (FP) PO SCH (22:54)
[2019-02-07] MEDS: INSULIN SLIDING SCALE (NOVOLOG) 1 VIAL SQ SCH (06:48)
[2019-02-07 07:55] VITALS: BP 139/72; PULSE 75; TEMP 97.7
[2019-02-07 08:30] LABS: INR 2.14 (0.83-1.09); PROTHROMBIN TIME (PATIENT) 25.4 SEC (9.7-13.0)
[2019-02-07 08:42] LABS: BLOOD UREA NITROGEN 29.9 mg/dL (7-18); CALCIUM 9.6 mg/dL (8.5-10.1); CREATININE 1.4 mg/dL (0.55-1.3)
[2019-02-07] MEDS: AMIODARONE HCL 200 MG TABLET (FP) PO SCH (09:04)
[2019-02-07] MEDS: LOSARTAN POTASSIUM 25 MG TABLET PO SCH (09:04)
[2019-02-07] MEDS: FUROSEMIDE 40 MG TABLET (FP) PO SCH (09:04)
[2019-02-07] MEDS: ASPIRIN COATED 81 MG TABLET.EC PO SCH (09:04)
[2019-02-07] MEDS: RANOLAZINE E.R. 500 MG TABLET (FP) PO SCH (09:04)
--- NOTE | 2019-02-07 09:56 | DS ---
Physical Exam: SUBJECTIVE: Patient seen and examined, breathing improved, no new concerns. OBJECTIVE: Vital Signs Period Temp Pulse Resp BP Sys/Cortes Pulse Ox Last 24 Hr 97.6 F-98.1 F 73-106 18-20 107-139/60-76 96-97 Intake & Output 02/04/19 02/05/19 02/06/19 02/07/19 23:59 23:59 23:59 23:59 Intake Total 350 400 550 Balance 350 400 550 Weight 148 lb 9.6 oz 147 lb 12.8 oz 147 lb 8 oz 147 lb 9.6 oz PHYSICAL EXAM GENERAL: sitting in bed, no acute distress, no use of accessory muscles of respiration Neck :improved neck vein distension CVS:S1S2 irregular Chest; Improved air entry, few basilar rales Abdomen:soft, NT, ND, pos bowel sounds Extremities: improved pedal edema Psych; pleasant, in better spirits LABS Laboratory Results - last 24 hr 02/06/19 02/06/19 02/06/19 11:48 17:12 22:53 PT with INR INR Sodium Potassium Chloride Carbon Dioxide Anion Gap BUN Creatinine Est GFR (CKD-EPI)AfAm Est GFR (CKD-EPI)NonAf POC Glucometer 173 148 159 Random Glucose Calcium 02/07/19 02/07/19 02/07/19 06:46 07:00 07:00 PT with INR 25.40 H INR 2.14 H Sodium 138 Potassium 4.0 Chloride 102 Carbon Dioxide 32 Anion Gap 4 L BUN 29.9 H Creatinine 1.4 H Est GFR (CKD-EPI)AfAm 39.61 Est GFR (CKD-EPI)NonAf 34.18 POC Glucometer 139 Random Glucose [address] chest: No definite pulmonary embolus is identified. Evaluation of the lower lobe segmental and subsegmental vessels is somewhat limited due to vessel crowding associated with pleural effusions . These pleural effusions have increased in size in comparison to a prior CT exam of 09/07/2018. The right pleural effusion currently appears moderate in size, the left pleural effusion small to moderate. The remainder of the exam demonstrates no definite interval change. Note is again made of mild focal patchy opacity within the posterior segment of the left upper lobe which may represent postinflammatory scarring versus a chronic infiltrate. Several small bilateral pulmonary nodules are again seen without gross interval change allowing for respiratory motion artifact on the current exam. Follow-up CT is suggested in approximately 3 months with comparison to a previous study. Left atrial dilatation is again noted. There is no pericardial effusion. Status post median sternotomy with CABG. Very extensive atherosclerotic coronary artery calcifications are visualized. Several small calcified mediastinal lymph nodes are noted probably on the basis of prior granulomatous disease. The partially imaged liver demonstrates mild surface irregularity indicative of cirrhosis. Stable 1.3 cm splenic cyst/ hemangioma. Impression: No definite CT evidence of pulmonary embolism. Increased bilateral pleural effusions are noted in comparison to a prior CT exam of 09/07/2018 consistent with pulmonary vascular congestion. Cardiomegaly. Status post median sternotomy with CABG. Note is again made of mild left upper lobe focal opacity which may represent scarring versus a chronic infiltrate. There is partial imaging of several small bilateral pulmonary is without gross interval change allowing for respiratory motion artifact on the current exam. Continued CT follow-up is suggested. Calcified mediastinal lymph nodes are again seen suggestive of prior granulomatous disease. Hepatic cirrhosis. HOSPITAL COURSE: Date of Admission:02/01/19 Date of Discharge: 02/07/19 Minutes to complete discharge: 40 Discharge Summary Reason For Visit: SUBTHERAPEUTIC INTERNATIONA NORMALIZED RATIO Current Active Problems Drvov-zx-[id number] kidney injury (Acute) Heart failure (Acute) Hyperlipidemia (Acute) Irregularly irregular cardiac rhythm (Acute) Paroxysmal atrial fibrillation with rapid ventricular response (Acute) Shortness of breath (Acute) Subtherapeutic international normalized ratio (INR) (Acute) Hospital Course: 83 yof with PMHx of CAD, s/p PCI, CABG (2003), DCHF, Afib on coumadin, HTN, NIDDM, Hyperlipdemia, chronic right sided pleural effusions s/p thoracocentesis , diverticulosis, gastritis, chronic anemia, RESTREPO with cirrhosis, and anxiety admitted with dyspnea. She had CT chest in ED showing worsening bilateral pleural effuions. Patient has been non compliant with her medications at home. She was seen by Dr. Sage on 02/01 outpatient and started on amiodarone 200 mg twice daily. She was placed on IV lasix with improvement in her volume status. She was continued on amiodarone and metoprolol with improvement in her heart rate. Her INR was subtherapeutic and she was on lovenox and coumadin. Her INR is 2.14 on discharge. She was deemed with no home oxygen needs on discharge. She was noted with lower uncomplicated E. Coli UTI and finished 5 day course of antibiotics. Medication compliance was stressed by multiple providers. She also had nodules on her CT chest suggestive of old granulomatous disease, her QFT was negative. She will be discharged home in stable condition with outpatient INR check on 02/10 and close cardiology follow up. Condition: Stable - Instructions Diet, Activity, Other Instructions: You were admitted with fluid your lungs and fast heart rate. You received Intravenous lasix. You were seen by cardiology. Your heart rate improved. MEDICATIONS: Continue all your home medications as before lasix will be continued at 40 mg daily Amiodarone 200 mg twice daily (as started by Dr. Sage on 02/01) Coumadin 6 mg daily with INR check on 02/10/2019, then as directed by your doctor. INSTRUCTIONS: It is very important that you take all your medications as directed Weigh yourself daily and notify your doctor rightaway if weight gain > 3lbs or any new leg swelling noted. Low salt diet. Your kidney numbness will need close monitoring While on coumadin, your INR will need to be closely monitored with your doctor FOLLOW UP: Blood work INR and BMP with Dr. Castillo on 02/10/2019. With Dr. Sage in 1-[address] chest follow up in 3 months. If you notice trouble breathing, severe leg swelling, decreased urination, chest pain, palpitations, dizziness or any new concerns, please call 911 or come to ED. Referrals: Reyna Sage MD [Staff Physician] - 1 Week Santana Castillo MD [Primary Care Provider] - 02/10/19 Disposition: VNS/HOME HEALTH CARE - Home Medications Comprehensive Discharge Medication List: Ambulatory Orders Ranolazine [Ranexa] 500 mg PO BID 11/25/11 Folic Acid - 400 mcg PO DAILY 02/16/12 Tiotropium [place] [Spiriva] 18 mcg IH DAILY PRN 02/09/15 Warfarin Na [Coumadin -] 6 mg PO DAILY 08/12/15 Albuterol Sulfate [Proair Respiclick] 90 mcg IH BID PRN 03/18/16 Beclomethasone Dipropionate [Qvar] 0.04 mg IH BID 03/18/16 Furosemide [Lasix -] 40 mg PO DAILY 03/18/16 Glucosamine/D3/Boswellia Eda [Osteo Bi-Flex Caplet] 1 tab PO BID 03/18/16 Iron,Carbonyl [Feosol] 65 mg PO DAILY 03/18/16 Mometasone Furoate [Asmanex] 220 mcg IH BID PRN 03/18/16 Amiodarone HCl 200 mg PO BID 02/01/19 Atorvastatin Ca [Lipitor] 80 mg PO HS 02/01/19 Cyanocobalamin (Vitamin B-12) [Vitamin B-12] 1,000 mcg PO DAILY 02/01/19 Icosapent Ethyl [Vascepa] 2 gm PO BID 02/01/19 Iron Polysacch/Iron Heme Polyp [Feosol Bifera 28 mg Caplet] 28 mg PO DAILY 02/01 Losartan Potassium 25 mg PO DAILY 02/01/19 Metoprolol Succinate [Toprol Xl] 50 mg PO BID 02/01/19 Sitagliptin Phos/Metformin HCl [Janumet 50-1,000 mg Tablet] 1 each PO BID Vitamin E 100 unit PO DAILY 02/01/19 This patient is new to me today: No Emergency Visit: Yes ED Registration Date: 02/01/19 Care time: The patient presented to the Emergency Department on the above date and was hospitalized for further evaluation of their emergent condition. Critical Care patient: No - Discharge Referral Referred to [facility] Med P.C.: No
--- NOTE | 2019-02-07 10:01 | PN ---
Progress Note, Physician Chief Complaint: Events noted Not in distress History of Present Illness: Patient was seen and examined. Awake and alert. Chart was reviewed Denies chest pain, SOB or palpitations - Current Medication List Current Medications: Active Medications Albuterol Sulfate (Ventolin Hfa Inhaler -) 1 puff IH BID PRN PRN Reason: SHORTNESS OF BREATH Amiodarone HCl (Cordarone -) 200 mg PO BID [facility] Last Admin: 02/07/19 09:04 Dose: 200 mg Aspirin (Ecotrin -) 81 mg PO DAILY [facility] Last Admin: 02/07/19 09:04 Dose: 81 mg Atorvastatin Calcium (Lipitor -) 80 mg PO HS [facility] Last Admin: 02/06/19 22:54 Dose: 80 mg Furosemide (Lasix -) 40 mg PO DAILY [facility] Last Admin: 02/07/19 09:04 Dose: 40 mg Insulin Aspart (Novolog Vial Sliding Scale -) 1 vial SQ [facility]; Protocol Last Admin: 02/07/19 06:48 Dose: Not Given Losartan Potassium (Cozaar -) 25 mg PO DAILY [facility] Last Admin: 02/07/19 09:04 Dose: 25 mg Metoprolol Succinate (Toprol Xl -) 50 mg PO BID [facility] Last Admin: 02/07/19 09:04 Dose: 50 mg Ranolazine (Ranexa -) 500 mg PO BID [facility] Last Admin: 02/07/19 09:04 Dose: 500 mg Warfarin Sodium (Coumadin -) 6 mg PO DAILY@1800 [facility] - Objective Vital Signs: Vital Signs Temperature 97.7 F 02/07/19 07:00 Pulse Rate 75 02/07/19 07:00 Respiratory Rate 20 02/07/19 07:00 Blood Pressure 139/72 02/07/19 07:00 O2 Sat by Pulse Oximetry (%) 96 02/06/19 21:00 Eyes: Yes: PERRL HENT: Yes: Atraumatic Neck: Yes: Supple Cardiovascular: Yes: Pulse Irregular, S1, S2 Respiratory: Yes: CTA Bilaterally Gastrointestinal: Yes: Normal Bowel Sounds, Soft. No: Tenderness Edema: No Additional Findings/Remarks: - Review of Systems Constitutional: denies: Chills, Fever Cardiovascular: denies: Chest Pain, Palpitations, Shortness of Breath Respiratory: denies: Cough, Hemoptysis, Orthopnea, PND, SOB, SOB on Exertion Gastrointestinal: denies: Abdominal Pain, Constipation, Diarrhea, Melena, Nausea , Rectal Bleeding, Vomiting Musculoskeletal: denies: Back Pain, Joint Pain Neurological: denies Dizziness, Syncope. denies: Headache, Seizure Labs: 02/07/19 07:00 INR, PTT INR 2.14 (0.83-1.09) H 02/07/19 07:00 Problem List - Problems (1) Kiths-qm-phkxsda kidney injury Code(s): N17.9 - ACUTE KIDNEY FAILURE, UNSPECIFIED; N18.9 - CHRONIC KIDNEY DISEASE, UNSPECIFIED Qualifiers: Chronic kidney disease stage: stage 2 (mild) (2) Anemia Code(s): D64.9 - ANEMIA, UNSPECIFIED (3) CHF (congestive heart failure) Code(s): I50.9 - HEART FAILURE, UNSPECIFIED Qualifiers: Heart failure type: diastolic Heart failure chronicity: acute on chronic Qualified Code(s): I50.33 - Acute on chronic diastolic (congestive) heart failure (4) Diabetes Code(s): E11.9 - TYPE 2 DIABETES MELLITUS WITHOUT COMPLICATIONS Qualifiers: Diabetes mellitus type: type 2 Diabetes mellitus fci insulin use: without 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 wall mining 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 use (5) Hx of CABG Code(s): Z95.1 - PRESENCE OF AORTOCORONARY BYPASS GRAFT (6) Hyperlipidemia Code(s): E78.5 - HYPERLIPIDEMIA, UNSPECIFIED Qualifiers: Hyperlipidemia type: mixed hyperlipidemia Qualified Code(s): E78.2 - Mixed hyperlipidemia (7) Hypertension Code(s): I10 - ESSENTIAL (PRIMARY) HYPERTENSION Qualifiers: Hypertension type: essential hypertension Qualified Code(s): I10 - Essential (primary) hypertension (8) Paroxysmal atrial fibrillation with rapid ventricular response Code(s): I48.0 - PAROXYSMAL ATRIAL FIBRILLATION (9) Pleural effusion Code(s): J90 - PLEURAL EFFUSION, NOT ELSEWHERE CLASSIFIED (10) Syncope, near Code(s): R55 - SYNCOPE AND COLLAPSE Assessment/Plan 1. Acute hypoxic respiratory failure 2. Acute on chronic diastolic heart failure and bilateral pleural effusions R>L due to medication and diet noncompliance 3. Paroxysmal AF with RVR with sub-therapeutic INR 4. CAD s/p CABG, PCI, angina 5. Type 2 DM 6. Hyperlipidemia 7. Acute on CKD referable to CHF +/- contrast induced nephropathy 8. HTN 9. E. coli UTI 10. Chronic anemia history of diverticulosis and gastritis 11. RESTREPO with cirrhosis 12. COPD PLAN: 1. Continue oral diuresis with monitoring renal function and electrolytes 2. Continue Toprol XL 50 mg BID, Amiodarone 200 mg BID, Lipitor 80 mg QHS, Ranexa 500 mg BID, Vascepa 2 g BID, Losartan 25 mg QD and resume Januvamet 50/ 1000 bid 3. Bronchodilator, O2 and NIPPV as needed 4. Lovenox and Coumadin as per INR 2-[address] Follow up with Dr. Sage upon discharge Jose Raul Brannon MD
[2019-02-07] MEDS ORDERED: WARFARIN NA 3 MG TABLET PO SCH (18:00)
== END 2019-02-07 11:17 | disposition home health service (06) | DRG 291 ==
LOC: JER 17:53 → JERBED 19:59 → J4W 02-02 07:19
PROVIDERS: ADMIT Internal Medicine; ATTEND Hospitalist
DX: I13.0 Hypertensive heart and chronic kidney disease with heart failure and stage 1 through stage 4 chronic kidney disease, or unspecified chronic kidney disease (principal); I50.33 Acute on chronic diastolic (congestive) heart failure; J96.01 Acute respiratory failure with hypoxia; N39.0 Urinary tract infection, site not specified; N17.9 Acute kidney failure, unspecified; I48.91 Unspecified atrial fibrillation; I16.0 Hypertensive urgency; N18.3 Chronic kidney disease, stage 3 (moderate); Z98.61 Coronary angioplasty status; Z95.1 Presence of aortocoronary bypass graft; E78.5 Hyperlipidemia, unspecified; E11.22 Type 2 diabetes mellitus with diabetic chronic kidney disease; F41.9 Anxiety disorder, unspecified; B96.20 Unspecified Escherichia coli [E. coli] as the cause of diseases classified elsewhere; I25.119 Atherosclerotic heart disease of native coronary artery with unspecified angina pectoris; J44.9 Chronic obstructive pulmonary disease, unspecified; I48.0 Paroxysmal atrial fibrillation; D64.9 Anemia, unspecified; R91.8 Other nonspecific abnormal finding of lung field
CPT/HCPCS: 36415; 71045-TC-FY; 71275-TC; 80048; 80053; 80061; 81003; 82550; 82962; 83036; 83721; 83735; 83880; 84100; 84443; 84484; 85025; 85027; 85610; 85730; 86480; 87086; 87186; 93005; 93010; 93306-TC; 94660; 94761; 97116-GP; 97161-GP; 99285-25

== ENCOUNTER 2019-03-03 11:48 | Inpatient (IN) | payer OTHER, BC ==
[2019-03-03] MEDS ORDERED: SODIUM CHLORIDE 1,000 ML IV STA (12:01)
--- NOTE | 2019-03-03 12:14 | PDOC ---
History of Present Illness - General Chief Complaint: Blood Pressure Problem Stated Complaint: LOW BLOOD PRESSURE Time Seen by Provider: 03/03/19 12:00 Past History - Past Medical History Allergies/Adverse Reactions: Allergies Allergy/AdvReac Type Severity Reaction Status Date / Time pollen extracts Allergy Unknown Verified 02/01/19 18:48 HONEYDEW Allergy Severe Difficulty Uncoded 02/01/19 18:48 Breathing HAYFEVER,GRASS,POLLEN Allergy Uncoded 02/01/19 18:48 Home Medications: Ambulatory Orders Ranolazine [Ranexa] 500 mg PO BID 11/25/11 Folic Acid - 400 mcg PO ASDIR 02/16/12 Tiotropium [place] [Spiriva] 18 mcg IH DAILY PRN 02/09/15 Albuterol Sulfate [Proair Respiclick] 90 mcg IH BID PRN 03/18/16 Beclomethasone Dipropionate [Qvar] 0.04 mg IH BID 03/18/16 Furosemide [Lasix -] 40 mg PO DAILY 03/18/16 Glucosamine/D3/Boswellia Eda [Osteo Bi-Flex Caplet] 1 tab PO BID 03/18/16 Iron,Carbonyl [Feosol] 65 mg PO DAILY 03/18/16 Mometasone Furoate [Asmanex] 220 mcg IH BID PRN 03/18/16 Amiodarone HCl 200 mg PO BID 02/01/19 Atorvastatin Ca [Lipitor] 80 mg PO HS 02/01/19 Cyanocobalamin (Vitamin B-12) [Vitamin B-12] 1,000 mcg PO DAILY 02/01/19 Icosapent Ethyl [Vascepa] 2 gm PO BID 02/01/19 Losartan Potassium 25 mg PO DAILY 02/01/19 Metoprolol Succinate [Toprol Xl] 50 mg PO BID 02/01/19 Sitagliptin Phos/Metformin HCl [Janumet 50-1,000 mg Tablet] 1 each PO BID Vitamin E 1 tab PO DAILY 02/01/19 Aspirin 81 mg PO DAILY 03/03/19 Isosorbide Mononitrate [Imdur -] 30 mg PO DAILY 03/03/19 Sitagliptin Phosphate [Januvia] 25 mg PO DAILY 03/03/19 Anemia: No Asthma: Yes Cancer: No Cardiac Disorders: Yes (ASHD,AF, CAD) CVA: No COPD: Yes (pleural effusion, thoracentesis) CHF: No Dementia: No Diabetes: Yes (IDDM) GI Disorders: Yes (COLON ADENOMA,HIATAL HERNIA,DIVERTICULOSIS) Disorders: Yes (UTI) HTN: Yes Hypercholesterolemia: Yes 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) Seizures: No Thyroid Disease: No - Surgical History Abdominal Surgery: No Appendectomy: No Cardiac Surgery: Yes (S/P CABG 2003) Cholecystectomy: No Lung Surgery: Yes (THORACENTESIS) Neurologic Surgery: No Orthopedic Surgery: Yes (RIGHT CARPAL TUNNEL RELEASE) - Suicide/Smoking/Psychosocial Hx Smoking Status: No Smoking History: Unknown if ever smoked Have you smoked in the past 12 months: No Number of Cigarettes Smoked Daily: 0 If you are a former smoker, when did you quit?: 1981 Hx Alcohol Use: No Drug/Substance Use Hx: No Substance Use Type: None Hx Substance Use Treatment: No *Physical Exam - Vital Signs Last Vital Signs Temp Pulse Resp BP Pulse Ox 97.4 F L 105 H 18 100/64 99 03/03/19 12:03 03/03/19 12:03 03/03/19 12:03 03/03/19 12:03 03/03/19 12:03
--- NOTE | 2019-03-03 12:25 | PDOC ---
History of Present Illness - General Chief Complaint: Blood Pressure Problem Stated Complaint: LOW BLOOD PRESSURE Time Seen by Provider: 03/03/19 12:00 History Source: Patient, EMS Exam Limitations: No Limitations - History of Present Illness Initial Comments: 03/03/19 12:25 83F with a PMH of CAD, CHF, HTN, NIDDM, Hyperlipdemia, right sided pleural effusions, diverticulosis, gastritis, chronic anemia, and anxiety who presents to the ER after feeling lightheaded and noticing that her BP was low. The patient states that she's felt lightheaded for the "past few days" and (per son ) had 2 falls, one where she sustained a laceration on her L occiput. She denies CP, SOB, fever, chills, nausea, vomiting, and syncope. She denies cough and dysuria. Past History - Past Medical History Allergies/Adverse Reactions: Allergies Allergy/AdvReac Type Severity Reaction Status Date / Time pollen extracts Allergy Unknown Verified 02/01/19 18:48 HONEYDEW Allergy Severe Difficulty Uncoded 02/01/19 18:48 Breathing HAYFEVER,GRASS,POLLEN Allergy Uncoded 02/01/19 18:48 Home Medications: Ambulatory Orders Ranolazine [Ranexa] 500 mg PO BID 11/25/11 Folic Acid - 400 mcg PO ASDIR 02/16/12 Tiotropium [place] [Spiriva] 18 mcg IH DAILY PRN 02/09/15 Albuterol Sulfate [Proair Respiclick] 90 mcg IH BID PRN 03/18/16 Beclomethasone Dipropionate [Qvar] 0.04 mg IH BID 03/18/16 Furosemide [Lasix -] 40 mg PO DAILY 03/18/16 Glucosamine/D3/Boswellia Eda [Osteo Bi-Flex Caplet] 1 tab PO BID 03/18/16 Iron,Carbonyl [Feosol] 65 mg PO DAILY 03/18/16 Mometasone Furoate [Asmanex] 220 mcg IH BID PRN 03/18/16 Amiodarone HCl 200 mg PO BID 02/01/19 Atorvastatin Ca [Lipitor] 80 mg PO HS 02/01/19 Cyanocobalamin (Vitamin B-12) [Vitamin B-12] 1,000 mcg PO DAILY 02/01/19 Icosapent Ethyl [Vascepa] 2 gm PO BID 02/01/19 Losartan Potassium 25 mg PO DAILY 02/01/19 Metoprolol Succinate [Toprol Xl] 50 mg PO BID 02/01/19 Sitagliptin Phos/Metformin HCl [Janumet 50-1,000 mg Tablet] 1 each PO BID Vitamin E 1 tab PO DAILY 02/01/19 Aspirin 81 mg PO DAILY 03/03/19 Isosorbide Mononitrate [Imdur -] 30 mg PO DAILY 03/03/19 Sitagliptin Phosphate [Januvia] 25 mg PO DAILY 03/03/19 Anemia: No Asthma: Yes Cancer: No Cardiac Disorders: Yes (ASHD,AF, CAD) CVA: No COPD: Yes (pleural effusion, thoracentesis) CHF: No Dementia: No Diabetes: Yes (IDDM) GI Disorders: Yes (COLON ADENOMA,HIATAL HERNIA,DIVERTICULOSIS) Disorders: Yes (UTI) HTN: Yes Hypercholesterolemia: Yes 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) Seizures: No Thyroid Disease: No - Surgical History Abdominal Surgery: No Appendectomy: No Cardiac Surgery: Yes (S/P CABG 2003) Cholecystectomy: No Lung Surgery: Yes (THORACENTESIS) Neurologic Surgery: No Orthopedic Surgery: Yes (RIGHT CARPAL TUNNEL RELEASE) - Suicide/Smoking/Psychosocial Hx Smoking Status: No Smoking History: Unknown if ever smoked Have you smoked in the past 12 months: No Number of Cigarettes Smoked Daily: 0 If you are a former smoker, when did you quit?: 1981 Hx Alcohol Use: No Drug/Substance Use Hx: No Substance Use Type: None Hx Substance Use Treatment: No Review of Systems - Review of Systems Able to Perform ROS?: Yes Comments:: 03/03/19 12:48 GENERAL/CONSTITUTIONAL: No fever or chills. No weakness. HEAD, EYES, EARS, NOSE AND THROAT: No change in vision. No ear pain or discharge. No sore throat. CARDIOVASCULAR: + for lightheadedness. No chest pain or palpitations. RESPIRATORY: No cough, wheezing, shortness of breath, or hemoptysis. GASTROINTESTINAL: No abdominal pain, nausea, vomiting, diarrhea, or constipation. GENITOURINARY: No dysuria, frequency, hematuria, or change in urination. MUSCULOSKELETAL: No joint or muscle swelling or pain. No neck or back pain. SKIN: No rash or lesions. NEUROLOGIC: No headache, numbness, tingling, focal weakness, loss of consciousness, or change in strength/sensation. Is the patient limited Maori proficient: No *Physical Exam - Vital Signs Last Vital Signs Temp Pulse Resp BP Pulse Ox 97.4 F L 105 H 18 100/64 99 03/03/19 12:03 03/03/19 12:03 03/03/19 12:03 03/03/19 12:03 03/03/19 12:03 - Physical Exam Comments: 03/03/19 12:49 GENERAL: Well developed, well nourished. Awake and alert. No acute distress. HEENT: Normocephalic. 1.5cm linear superficial laceration over L occiput. Hearing grossly normal. Moist mucous membranes. PERRLA, EOMI. No conjunctival pallor. Sclera are non-icteric. NECK: Supple. Full ROM. No JVD. No midline tenderness CARDIOVASCULAR: Regular rate and rhythm. No murmurs, rubs, or gallops. PULMONARY: No evidence of respiratory distress. Decreased lung sounds in RLL. Otherwise, lungs clear to auscultation bilaterally. No wheezing, rales or rhonchi. ABDOMINAL: Soft. Non-tender. Non-distended. No rebound or guarding. GENITOURINARY: No CVA tenderness bilaterally. MUSCULOSKELETAL: Normal range of motion at all joints. No bony deformities or tenderness. EXTREMITIES: No cyanosis. No clubbing. No edema. No calf tenderness or swelling. SKIN: Warm and dry. Normal capillary refill. No rashes. No jaundice. NEUROLOGICAL: Alert, awake, appropriate. Cranial nerves 2-12 grossly intact. Normal speech. PSYCHIATRIC: Cooperative. Good eye contact. Appropriate mood and affect. ED Treatment Course - LABORATORY CBC & Chemistry Diagram: 03/03/19 12:30 03/03/19 12:30 - RADIOLOGY Radiology Studies Ordered: Category Date Time Status CERVICAL SPINE CT W/O CONTR [CT] Stat CT Scan 03/03/19 12:[address] WITHOUT CONTRAST [CT] Stat CT Scan 03/03/19 12:08 Ordered Medical Decision Making - Medical Decision Making 03/03/19 12:49 83F with a PMH of a-fib on xarelto and MMP (see above) who presents to the ER with hypotension and 2 falls. Will obtain appropriate imaging and labwork. EKG shows a-fib. Pt receiving fluid resuscitation from EMS and will be continued in ED. Pt otherwise well appearing. Pending labs and imaging. *DC/Admit/Observation/Transfer Diagnosis at time of Disposition: Anemia, Hypotension, Abnormal TSH - Discharge Dispostion Condition at time of disposition: Stable - Referrals - Patient Instructions - Post Discharge Activity
--- NOTE | 2019-03-03 12:25 | PDOC ---
Documentation entered by Elidia Barrett SCRIBE, acting as scribe for Sajan Bill MD. Sajan Bill MD: This documentation has been prepared by the Arnold callejas Brenda, SCRIBE, under my direction and personally reviewed by me in its entirety. I confirm that the documentation accurately reflects all work, treatment, procedures, and medical decision making performed by me. Attending Attestation - Resident Resident Name: Jose Nunez - ED Attending Attestation I have performed the following: I have examined & evaluated the patient, The case was reviewed & discussed with the resident, I agree w/resident's findings & plan, Exceptions are as noted - HPI HPI: 03/03/19 12:13 83 year old female c/ pmh of CAD, HTN, DM, afib on xarelto, CHF p/w generalized weakness and hypotension. History taken from pt and pt's son. The last few days, pt has endorsed generalized weakness and fatigue. Denies chest pain, shortness of breath, fevers, chills, nausea, vomiting, abdominal pain, dysuria or pain. States that she has been taking her medications but has a poor appetite. Has been taking her blood pressures at home and noted her systolics in the 80s to 90s. Incidentally, four days ago, pt fell and sustained a laceration to posterior scalp. Gauze was placed on it and the bleeding had stopped. Since then, pt has been gradually weakening but without focal deficits. No confusion or AMS noted. Last tetanus is unknown. Pt's son called PMD, Dr. Castillo, who advised pt to go to the ER. While trying to get in the car, the patient felt too weak and the patient was caught by her son. No syncopal episode or other head trauma. - Physicial Exam PE: 03/03/19 12:13 GENERAL: Awake, alert, and fully oriented, in no acute distress, but tired appearing HEAD: Old nonbleeding, granulating ~1.5 cm posterior superior scalp laceration EYES: PERRLA, EOMI, sclera anicteric, conjunctiva clear ENT: Auricles normal inspection, hearing grossly normal, nares patent NECK: Normal ROM, supple LUNGS: Breath sounds equal, clear to auscultation bilaterally. No wheezes, and no crackles HEART: Regular rate and rhythm, normal S1 and S2, no murmurs, rubs or gallops ABDOMEN: Soft, nontender, No guarding, no rebound. No masses EXTREMITIES: Normal range of motion, 2+ pitting edema lower extremities bilaterally. No clubbing or cyanosis. No cords, erythema, or tenderness NEUROLOGICAL: Cranial nerves II through XII intact. Normal speech. sensation and strength intact throughout. 5/5 in all extremities. SKIN: Warm, Dry, normal turgor, no rashes or lesions noted. - Medical Decision Making 03/03/19 12:07 Vital Signs Temp Pulse Resp BP Pulse Ox 97.4 F L 105 H 18 100/64 99 03/03/19 12:03 03/03/19 12:03 03/03/19 12:03 03/03/19 12:03 03/03/19 12:03 The patient appears profoundly tired appearing and weak. Differential includes sepsis, head bleed (from fall), metabolic disarray ( including Na, K, TSH), cardiac including ACS, NM, Will need head ct and ct-cpsine. Chest xray Pt has no pelvis tenderness and has full range of motion of both hips. At this time, will hold off from pelvis xray. Will allow wound on head to heal by secondary intentions (too old to staple). Consider updating tetanus. IVF for hypotension at home. Reassess with likely admission for further workup. 03/03/19 14:[address], [address]-cpsine reviewed. no acute findings. Chest xray reviewed. No acute findings. CBC, BMP 03/03/19 12:30 03/03/19 12:30 CMP Sodium 139 mmol/L (136-145) 03/03/19 12:30 Potassium 3.9 mmol/L (3.5-5.1) 03/03/19 12:30 Chloride 102 mmol/L (98-107) 03/03/19 12:30 Carbon Dioxide 31 mmol/L (21-32) 03/03/19 12:30 Anion Gap 7 MMOL/L (8-16) L 03/03/19 12:30 BUN 41.6 mg/dL (7-18) H 03/03/19 12:30 Creatinine 1.6 mg/dL (0.55-1.3) H 03/03/19 12:30 Est GFR (CKD-EPI)AfAm 33.70 03/03/19 12:30 Est GFR (CKD-EPI)NonAf 29.08 03/03/19 12:30 Random Glucose 128 mg/dL (74-106) H 03/03/19 12:30 Lactic Acid 1.0 mmol/L (0.4-2.0) 03/03/19 12:30 Calcium 9.2 mg/dL (8.5-10.1) 03/03/19 12:30 Total Bilirubin 0.7 mg/dL (0.2-1) 03/03/19 12:30 AST 17 U/L (15-37) 03/03/19 12:30 ALT 25 U/L (13-61) 03/03/19 12:30 Alkaline Phosphatase 88 U/L (45-117) 03/03/19 12:30 Troponin I < 0.02 ng/ml (0.00-0.05) 03/03/19 12:30 B-Natriuretic Peptide 1292.5 pg/ml (5-450) H 03/03/19 12:30 Total Protein 6.1 g/dl (6.4-8.2) L 03/03/19 12:30 Albumin 2.8 g/dl (3.4-5.0) L 03/03/19 12:30 TSH 6.22 uIU/ml (0.358-3.74) H 03/03/19 12:30 UA pending. Pt's SBP still in 100s. Stool occult obtained. Rectal exam performed by me: external hemorrhoids but no tears. Dark brown stools.l 03/03/19 14:[address] Hampton. Accepted to tele admission. *DC/Admit/Observation/Transfer Diagnosis at time of Disposition: Abnormal TSH Anemia Qualifiers: Anemia type: unspecified type Qualified Code(s): D64.9 - Anemia, unspecified Hypotension Qualifiers: Hypotension type: unspecified hypotension type Qualified Code(s): I95.9 - Hypotension, unspecified - Discharge Dispostion Condition at time of disposition: Stable Decision to Admit order: Yes - Referrals - Patient Instructions - Post Discharge Activity Heart Score/ECG Review #1 ECG reviewed & interpreted by me at: 11:45 03/03/19 12:25 afib 94, low voltage QRS, ST & T wave abnormality, TWI V2-V4, no std/tianna, QTC 467 msec
[2019-03-03 12:46] LABS: VENOUS PC02 49.2 mmHg (41-51); VENOUS PH 7.41 (7.31-7.41); VENOUS PO2 36.9 mmHg (30-40)
[2019-03-03 12:58] LABS: BASO % 0.7 % (0-2.0); EOS % 3.5 % (0-4.5); HEMATOCRIT 25.3 % (32.4-45.2); HEMOGLOBIN 8.8 GM/dL (10.7-15.3); LYMPH % 13.1 % (8-40); MCH 31.4 pg (25.7-33.7); MCHC 34.6 g/dl (32.0-36.0); MEAN CELL VOLUME 90.7 fl (80-96); MEAN PLT VOLUME 8.5 fl (7.5-11.1); MONO % 8.1 % (3.8-10.2); NEUT % 74.6 % (42.8-82.8); PLATELET COUNT 238 K/MM3 (134-434); RBC 2.79 M/mm3 (3.60-5.2); RDW 16.4 % (11.6-15.6); WHITE BLOOD COUNT 5.6 K/mm3 (4.0-10.0)
[2019-03-03 13:00] LABS: PROTHROMBIN TIME (PATIENT) 58.8 SEC (9.7-13.0)
[2019-03-03 13:03] LABS: ACTIVATED PTT 51.3 SECONDS (25.2-36.5)
[2019-03-03 13:26] LABS: INR 4.9 (0.83-1.09)
[2019-03-03 13:38] LABS: ALBUMIN 2.8 g/dl (3.4-5.0); BILIRUBIN,TOTAL 0.7 mg/dL (0.2-1); BLOOD UREA NITROGEN 41.6 mg/dL (7-18); CALCIUM 9.2 mg/dL (8.5-10.1); CREATININE 1.6 mg/dL (0.55-1.3); N-TERMINAL BNP 1292.5 pg/ml (5-450); POTASSIUM 3.9 mmol/L (3.5-5.1); TOT PROT 6.1 g/dl (6.4-8.2)
--- NOTE | 2019-03-03 14:16 | EKG ---
Test Reason : Blood Pressure : / mmHG Vent. Rate : 094 BPM Atrial Rate : 100 BPM P-R Int : 000 ms QRS Dur : 110 ms QT Int : 374 ms P-R-T Axes : 000 078 139 degrees QTc Int : 467 ms POOR DATA QUALITY, INTERPRETATION MAY BE ADVERSELY AFFECTED ATRIAL FIBRILLATION LOW VOLTAGE QRS NONSPECIFIC ST ABNORMALITY ABNORMAL ECG Confirmed by MILEY GIRON MD ([id number]) on 03/03/2019 2:16:40 PM Referred By: Confirmed By:MILEY GIRON MD
[2019-03-03] MEDS ORDERED: MOMETASONE FUROATE 220 MCG/IH INHALER IH PRN (14:56)
[2019-03-03] MEDS ORDERED: PATIENT'S OWN MEDICATION (NON-FORMULARY) (Albuterol Sulfate [Proair Respiclick] 90 MCG) IH PRN (14:56)
[2019-03-03] MEDS ORDERED: PATIENT'S OWN MEDICATION (NON-FORMULARY) (Tiotropium Bromide [Spiriva] 18 MCG) IH PRN (14:56)
--- NOTE | 2019-03-03 14:58 | HP ---
Admitting History and Physical - Primary Care Physician PCP: Santana Castillo - Admission Chief Complaint: My blood pressure was low History of Present Illness: Ms Alexis is a very pleasant 83 year old female who comes in with lightheadedness. She was recently discharged after being treated for a CHF exacerbation and stated that she was not feeling well since. However it became acutely worse over the past two days. She says that when she stands up and walks she feels lightheaded, she says she has not passed out. Of note she did fall last week where she lost balance on a chair and hit her head, she did not seek medical evaluation for this. With this lightheadedness she feels weakness and fatigue. She checked her blood pressure and is was 77/59. Because of that she came in. She denies fevers, chills, chest pain or pressure, she has chronic shortness of breath which is unchanged, denies nausea, vomiting, she has chronic constipation with unchanged dark stools. She does not have difficulty or pain on urination but notes worsening swelling. History Source: Patient Limitations to Obtaining History: No Limitations - Past Medical History Cardiovascular: Yes: CAD, CHF, HTN, Hyperlipdemia Pulmonary: Yes: Other (Stable lung nodules) Gastrointestinal: Yes: Diverticulosis, Gastritis Heme/Onc: Yes: Anemia, Other Psych: Yes: Anxiety Endocrine: Yes: Diabetes Mellitus - Past Surgical History Past Surgical History: Yes: CABG, Hysterectomy - Smoking History Smoking history: Former smoker Have you smoked in the past 12 months: No Aproximately how many cigarettes per day: 0 If you are a former smoker, when did you quit?: 1981 - Alcohol/Substance Use Hx Alcohol Use: No History of Substance Use: reports: None - Social History ADL: Independent 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 History of Recent Travel: No Home Medications - Allergies Allergies/Adverse Reactions: Allergies Allergy/AdvReac Type Severity Reaction Status Date / Time pollen extracts Allergy Unknown Verified 02/01/19 18:48 HONEYDEW Allergy Severe Difficulty Uncoded 02/01/19 18:48 Breathing HAYFEVER,GRASS,POLLEN Allergy Uncoded 02/01/19 18:48 - Home Medications Home Medications: Ambulatory Orders Ranolazine [Ranexa] 500 mg PO BID 11/25/11 Folic Acid - 400 mcg PO ASDIR 02/16/12 Tiotropium [place] [Spiriva] 18 mcg IH DAILY PRN 02/09/15 Albuterol Sulfate [Proair Respiclick] 90 mcg IH BID PRN 03/18/16 Beclomethasone Dipropionate [Qvar] 0.04 mg IH BID 03/18/16 Furosemide [Lasix -] 40 mg PO DAILY 03/18/16 Glucosamine/D3/Boswellia Eda [Osteo Bi-Flex Caplet] 1 tab PO BID 03/18/16 Iron,Carbonyl [Feosol] 65 mg PO DAILY 03/18/16 Mometasone Furoate [Asmanex] 220 mcg IH BID PRN 03/18/16 Amiodarone HCl 200 mg PO BID 02/01/19 Atorvastatin Ca [Lipitor] 80 mg PO HS 02/01/19 Cyanocobalamin (Vitamin B-12) [Vitamin B-12] 1,000 mcg PO DAILY 02/01/19 Icosapent Ethyl [Vascepa] 2 gm PO BID 02/01/19 Losartan Potassium 25 mg PO DAILY 02/01/19 Metoprolol Succinate [Toprol Xl] 50 mg PO BID 02/01/19 Sitagliptin Phos/Metformin HCl [Janumet 50-1,000 mg Tablet] 1 each PO BID Vitamin E 1 tab PO DAILY 02/01/19 Aspirin 81 mg PO DAILY 03/03/19 Isosorbide Mononitrate [Imdur -] 30 mg PO DAILY 03/03/19 Sitagliptin Phosphate [Januvia] 25 mg PO DAILY 03/03/19 Family Disease History - Family Disease History Family Disease History: Diabetes: Mother, Heart Disease: Mother, CA: Father Review of Systems Findings/Remarks: Full review of systems obtained, as per HPI and otherwise negative. Physical Examination Vital Signs: Vital Signs Temperature 36.3 C L 03/03/19 12:03 Pulse Rate 105 H 03/03/19 12:03 Respiratory Rate 18 03/03/19 12:03 Blood Pressure 100/64 03/03/19 12:03 O2 Sat by Pulse Oximetry (%) 97 03/03/19 14:01 Constitutional: Yes: No Distress, Calm, Obese Eyes: Yes: Conjunctiva Clear, EOM Intact, PERRL HENT: Yes: Normocephalic Cardiovascular: Yes: Regular Rate and Rhythm. No: Gallop, Murmur, Rub Respiratory: Yes: Regular, CTA Bilaterally, On Nasal O2. No: Rales, Rhonchi, Wheezes Gastrointestinal: Yes: Normal Bowel Sounds, Soft. No: Distention, Tenderness Extremities: Yes: WNL Edema: Yes Edema: LLE: 1+, RLE: 1+ Labs: CBC, BMP 03/03/19 12:30 03/03/19 12:30 Imaging - Results Chest X-ray: Report Reviewed, Image Reviewed Cat Scan: Report Reviewed Problem List - Problems (1) Anemia Assessment/Plan: -unclear cause but concern for GIB -protonix 40mg IV bid -IVF -GI consult -monitor on telemetry -hold anticoagulation Code(s): D64.9 - ANEMIA, UNSPECIFIED Qualifiers: Anemia type: unspecified type Qualified Code(s): D64.9 - Anemia, unspecified (2) Syncope, near Assessment/Plan: -suspect secondary to anemia causing hypotension -admit to telemetry -cardiology consult -hydration -hold diuretics -hold antihypertensives Code(s): R55 - SYNCOPE AND COLLAPSE (3) Hypotension Assessment/Plan: -hydration with IVF -hold diuretics and antihypertensives -transfuse if needed Code(s): I95.9 - HYPOTENSION, UNSPECIFIED Qualifiers: Hypotension type: hypotension due to hypovolemia Qualified Code(s): I95.89 - Other hypotension; E86.1 - Hypovolemia (4) CKD (chronic kidney disease) Assessment/Plan: -stable Code(s): N18.9 - CHRONIC KIDNEY DISEASE, UNSPECIFIED (5) Chronic atrial fibrillation Assessment/Plan: -on amiodarone -on xarelto -cardiology consult -hold xarelto -cardiology to evaluate amiodarone in light of elevated TSH Code(s): I48.2 - CHRONIC ATRIAL FIBRILLATION (6) Abnormal TSH Assessment/Plan: -suspect secondary to amiodarone -will d/w cardiology Code(s): R79.89 - OTHER SPECIFIED ABNORMAL FINDINGS OF BLOOD CHEMISTRY (7) CHF (congestive heart failure) Assessment/Plan: -not in exacerbation -hold diuretics and gentle hydration Code(s): I50.9 - HEART FAILURE, UNSPECIFIED Qualifiers: Heart failure type: diastolic Heart failure chronicity: chronic Qualified Code(s): I50.32 - Chronic diastolic (congestive) heart failure (8) Diabetes Assessment/Plan: -diabetic diet -FSBS and SSI Code(s): E11.9 - TYPE 2 DIABETES MELLITUS WITHOUT COMPLICATIONS Qualifiers: Diabetes mellitus type: type 2 Diabetes mellitus gas distribution and emergency clerk insulin use: without gas distribution and emergency clerk use (9) Hx of CABG Assessment/Plan: -noted Code(s): Z95.1 - PRESENCE OF AORTOCORONARY BYPASS GRAFT (10) Hyperlipidemia Assessment/Plan: -continue home regimen Code(s): E78.5 - HYPERLIPIDEMIA, UNSPECIFIED Qualifiers: Hyperlipidemia type: mixed hyperlipidemia Qualified Code(s): E78.2 - Mixed hyperlipidemia (11) Coumadin toxicity Assessment/Plan: -case d/w Dr Castillo -INR was 1.62 yesterday -? if took coumadin as well as xarelto -will give vitamin k since concern for active bleeding Code(s): T45.511A - POISONING BY ANTICOAGULANTS, ACCIDENTAL, INIT Qualifiers: Encounter type: initial encounter Injury intent: accidental or unintentional Qualified Code(s): T45.511A - Poisoning by anticoagulants, accidental (unintentional), initial encounter
[2019-03-03] MEDS ORDERED: FOLIC ACID 1 MG TABLET (FP) PO SCH (15:00)
[2019-03-03] MEDS ORDERED: PANTOPRAZOLE SODIUM 40 MG/100 ML BAG IVPB ONE (15:24)
[2019-03-03] MEDS: SODIUM CHLORIDE 1,000 ML IV SCH ×2 (15:31→19:51)
[2019-03-03] MEDS: PANTOPRAZOLE SODIUM 40 MG VIAL IVPUSH SCH ×2 (15:31→21:38)
--- NOTE | 2019-03-03 16:18 | CON.GI ---
Consult Consult Specialty:: Gastroenterology Referred by:: Dr Hampton Reason for Consultation:: GI bleed - History of Present Illness Chief Complaint: Dizzyness and weakness History of Present Illness: 83F has been hypotensive by her own recordings for the past few days. This led to a fall several days ago when she struck her head and neck against a sharp corner that led to self limited bleeding. Her Coumadin was stopped on 02/27 but Xarelto was started in it's place. She denies hematemesis or melena but has been extremely constipated. Her stools are dark but she is taking iron. Unfortunately she stopped taking Miralax. 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 She had repeated declined to have it biopsied. Her weight loss had leveled off when I last saw her on 11/10/18 in the office when she told me that she did not want to be subjected to any further testing. She did have an EGD and a colonoscopy in . The colonoscopy led to the removal of benign proximal transverse colon polyps and revealed that her hepatic flexure lipoma was stable. Moderate diverticulosis was found oin itzel left colon. EGD revealed portal gastropathy and H. pylori gastritis which was treated. 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 She was hospitalized about a month ago when Amiodarone was started. Her son tells me that his has affected her thyroid function. She admits to eating poorly since her . - History Source History Provided By: Patient, Medical Record Limitations to Obtaining History: Poor Historian - Past Medical History Cardio/Vascular: Yes: AFIB, CAD (coronary stenting 2009, CABG in 2003), CHF ( diastolic), HTN, Hyperlipdemia Pulmonary: Yes: Asthma, Other (Stable lung nodules) Gastrointestinal: Yes: Constipation, Diverticulosis, Gastritis (H. pylori gastritis treated in 03/24), Hiatal Hernia, Other (personal h/o colon adenomas) Hepatobiliary: Yes: Cirrhosis (RESTREPO related), Cholelithiasis, Other (Mevacor induced hepatitis in 1994) Heme/Onc: Yes: Anemia Psych: Yes: Anxiety Endocrine: Yes: Diabetes Mellitus Additional Medical History: Mesenteric mass of undetermined etiology since 2016 - Past Surgical History Past Surgical History: Yes: Breast Biopsy (left breats cysts), CABG (2003), Cataract Removal (bilateral), Colonoscopy, Upper Endoscopy Additional Surgical History: Ovarian cystectomy 2014= benign. 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 @ [employer] Place of : [facility] History of Recent Travel: No Home Medications - Allergies Allergies/Adverse Reactions: Allergies Allergy/AdvReac Type Severity Reaction Status Date / Time pollen extracts Allergy Unknown Verified 02/01/19 18:48 HONEYDEW Allergy Severe Difficulty Uncoded 02/01/19 18:48 Breathing HAYFEVER,GRASS,POLLEN Allergy Uncoded 02/01/19 18:48 - Home Medications Home Medications: Ambulatory Orders Ranolazine [Ranexa] 500 mg PO BID 11/25/11 Folic Acid - 400 mcg PO ASDIR 02/16/12 Tiotropium [place] [Spiriva] 18 mcg IH DAILY PRN 02/09/15 Albuterol Sulfate [Proair Respiclick] 90 mcg IH BID PRN 03/18/16 Beclomethasone Dipropionate [Qvar] 0.04 mg IH BID 03/18/16 Furosemide [Lasix -] 40 mg PO DAILY 03/18/16 Glucosamine/D3/Boswellia Eda [Osteo Bi-Flex Caplet] 1 tab PO BID 03/18/16 Iron,Carbonyl [Feosol] 65 mg PO DAILY 03/18/16 Mometasone Furoate [Asmanex] 220 mcg IH BID PRN 03/18/16 Amiodarone HCl 200 mg PO BID 02/01/19 Atorvastatin Ca [Lipitor] 80 mg PO HS 02/01/19 Cyanocobalamin (Vitamin B-12) [Vitamin B-12] 1,000 mcg PO DAILY 02/01/19 Icosapent Ethyl [Vascepa] 2 gm PO BID 02/01/19 Losartan Potassium 25 mg PO DAILY 02/01/19 Metoprolol Succinate [Toprol Xl] 50 mg PO BID 02/01/19 Sitagliptin Phos/Metformin HCl [Janumet 50-1,000 mg Tablet] 1 each PO BID Vitamin E 1 tab PO DAILY 02/01/19 Aspirin 81 mg PO DAILY 03/03/19 Isosorbide Mononitrate [Imdur -] 30 mg PO DAILY 03/03/19 Sitagliptin Phosphate [Januvia] 25 mg PO DAILY 03/03/19 Family Disease History - Family Disease History Family Disease History: Diabetes: Mother, Heart Disease: Mother, CA: Father ( of lung cancer) Other Family History: Maternal GM had Hodgkins Disease. Matr uncle had gastric cancer Review of Systems - Review of Systems Constitutional: reports: Lethargy, Loss of Appetite, Unintentional Wgt. Loss, Weakness Eyes: reports: No Symptoms HENT: reports: No Symptoms Neck: reports: No Symptoms Cardiovascular: reports: Palpitations, Shortness of Breath Respiratory: reports: Exercise Intolerance, SOB on Exertion Gastrointestinal: reports: Constipation Musculoskeletal: reports: No Symptoms Integumentary: reports: No Symptoms Neurological: reports: Dizziness (on standing with fall last week) Physical Exam-GI Vital Signs: Vital Signs Temperature 97.4 F L 03/03/19 12:03 Pulse Rate 92 H 03/03/19 14:52 Respiratory Rate 18 03/03/19 14:52 Blood Pressure 90/62 03/03/19 14:52 O2 Sat by Pulse Oximetry (%) 97 03/03/19 14:52 CBC,CMP WBC 5.6 K/mm3 (4.0-10.0) 03/03/19 12:30 RBC 2.79 M/mm3 (3.60-5.2) L 03/03/19 12:30 Hgb 8.8 GM/dL (10.7-15.3) L 03/03/19 12:30 Hct 25.3 % (32.4-45.2) L D 03/03/19 12:30 MCV 90.7 fl (80-96) 03/03/19 12:30 MCH 31.4 pg (25.7-33.7) 03/03/19 12:30 MCHC 34.6 g/dl (32.0-36.0) 03/03/19 12:30 RDW 16.4 % (11.6-15.6) H 03/03/19 12:30 Plt Count 238 K/MM3 (134-434) 03/03/19 12:30 MPV 8.5 fl (7.5-11.1) 03/03/19 12:30 Absolute Neuts (auto) 4.2 K/mm3 (1.5-8.0) 03/03/19 12:30 Neutrophils % 74.6 % (42.8-82.8) 03/03/19 12:30 Lymphocytes % 13.1 % (8-40) D 03/03/19 12:30 Monocytes % 8.1 % (3.8-10.2) 03/03/19 12:30 Eosinophils % 3.5 % (0-4.5) 03/03/19 12:30 Basophils % 0.7 % (0-2.0) 03/03/19 12:30 Nucleated RBC % 0 % (0-0) 03/03/19 12:30 Sodium 139 mmol/L (136-145) 03/03/19 12:30 Potassium 3.9 mmol/L (3.5-5.1) 03/03/19 12:30 Chloride 102 mmol/L (98-107) 03/03/19 12:30 Carbon Dioxide 31 mmol/L (21-32) 03/03/19 12:30 Anion Gap 7 MMOL/L (8-16) L 03/03/19 12:30 BUN 41.6 mg/dL (7-18) H 03/03/19 12:30 Creatinine 1.6 mg/dL (0.55-1.3) H 03/03/19 12:30 Est GFR (CKD-EPI)AfAm 33.70 03/03/19 12:30 Est GFR (CKD-EPI)NonAf 29.08 03/03/19 12:30 Random Glucose 128 mg/dL (74-106) H 03/03/19 12:30 Lactic Acid 1.0 mmol/L (0.4-2.0) 03/03/19 12:30 Calcium 9.2 mg/dL (8.5-10.1) 03/03/19 12:30 Total Bilirubin 0.7 mg/dL (0.2-1) 03/03/19 12:30 AST 17 U/L (15-37) 03/03/19 12:30 ALT 25 U/L (13-61) 03/03/19 12:30 Alkaline Phosphatase 88 U/L (45-117) 03/03/19 12:30 Troponin I < 0.02 ng/ml (0.00-0.05) 03/03/19 12:30 B-Natriuretic Peptide 1292.5 pg/ml (5-450) H 03/03/19 12:30 Total Protein 6.1 g/dl (6.4-8.2) L 03/03/19 12:30 Albumin 2.8 g/dl (3.4-5.0) L 03/03/19 12:30 TSH 6.22 uIU/ml (0.358-3.74) H 03/03/19 12:30 Current Medications Generic Name Dose Route Start Last Admin Trade Name Freq PRN Reason Stop Dose Admin Acetaminophen 650 mg 03/03/19 14:52 Tylenol - PO Q4H PRN FEVER Amiodarone HCl 200 mg 03/03/19 22:00 Cordarone - PO BID [facility] Atorvastatin Calcium 80 mg 03/03/19 22:00 Lipitor - PO HS [facility] Cyanocobalamin 1,000 mcg 03/04/19 10:00 Vitamin B12 - PO DAILY [facility] Ferrous Sulfate 325 mg 03/04/19 10:00 Feosol - PO DAILY JENNY Folic Acid 1 mg 03/04/19 10:00 Folic Acid - PO DAILY [facility] Sodium Chloride 1,000 mls @ 50 mls/hr 03/03/19 15:00 03/03/19 15:31 Normal Saline - IV 03/04/19 14:54 50 mls/hr ASDIR JENNY Administration Insulin Aspart 1 vial 03/03/19 16:30 Novolog Vial Sliding Scale - SQ ACHS [facility] Protocol Isosorbide Mononitrate 30 mg 03/04/19 10:00 Imdur - PO DAILY [facility] Metoprolol Succinate 50 mg 03/03/19 22:00 Toprol Xl - PO BID JENNY Mometasone Furoate 1 puff 03/03/19 22:00 Asmanex 220mcg - IH BID [facility] Non-Formulary Medication 90 mcg 03/03/19 14:56 Albuterol Sulfate [Proair Respiclick] IH BID PRN SHORTNESS OF BREATH Non-Formulary Medication 2 gm 03/03/19 22:00 Icosapent Ethyl [Vascepa] PO BID [facility] Pantoprazole Sodium 40 mg 03/03/19 14:55 03/03/19 15:31 Protonix Iv IVPUSH 40 mg BID [facility] Administration Ranolazine 500 mg 03/03/19 22:00 Ranexa - PO BID [facility] Tiotropium [place] 2 puff 03/04/19 10:00 Spiriva Respimat IH DAILY [facility] Vitamin E 400 unit 03/04/19 10:00 Vitamin E - PO DAILY [facility] Constitutional: Yes: Calm Eyes: Yes: Conjunctiva Clear HENT: Yes: Atraumatic Neck: Yes: Supple Cardiovascular: Yes: Pulse Irregular, Other (healed median sternotomy incision) Respiratory: Yes: CTA Bilaterally Gastrointestinal Inspection: Yes: Scars (healed laparoscopic incisions) ...Auscultate: Yes: Normoactive Bowel Sounds ...Palpate: Yes: Soft, Other (nontender) ...Percussion: Yes: Tympanitic ...Rectal Exam: Yes: Guaiac Negative (iron stained guaiac negative stool) Labs: CBC, BMP 03/03/19 12:30 03/03/19 12:30 INR, PTT INR 4.90 (0.83-1.09) H* 03/03/19 12:30 Problem List - Problems (1) Hypotension Code(s): I95.9 - HYPOTENSION, UNSPECIFIED Qualifiers: Hypotension type: unspecified hypotension type Qualified Code(s): I95.9 - Hypotension, unspecified (2) Weight loss Code(s): R63.4 - ABNORMAL WEIGHT LOSS (3) Anorexia Code(s): R63.0 - ANOREXIA (4) Mesenteric mass Code(s): K63.89 - OTHER SPECIFIED DISEASES OF INTESTINE (5) Colon adenomas Code(s): D12.6 - BENIGN NEOPLASM OF COLON, UNSPECIFIED (6) Diverticulosis Code(s): K57.90 - DVRTCLOS OF INTEST, PART UNSP, W/O PERF OR ABSCESS W/O BLEED (7) Cirrhosis of liver not due to alcohol Code(s): K74.60 - UNSPECIFIED CIRRHOSIS OF LIVER (8) Portal hypertensive gastropathy Code(s): K76.6 - PORTAL HYPERTENSION; K31.89 - OTHER DISEASES OF STOMACH AND DUODENUM (9) Anemia Code(s): D64.9 - ANEMIA, UNSPECIFIED Qualifiers: Anemia type: unspecified type Qualified Code(s): D64.9 - Anemia, unspecified (10) [id number] kidney injury Code(s): N17.9 - ACUTE KIDNEY FAILURE, UNSPECIFIED; N18.9 - CHRONIC KIDNEY DISEASE, UNSPECIFIED Qualifiers: Chronic kidney disease stage: stage 2 (mild) (11) CHF (congestive heart failure) Code(s): I50.9 - HEART FAILURE, UNSPECIFIED Qualifiers: Heart failure type: diastolic Heart failure chronicity: acute on chronic Qualified Code(s): I50.33 - Acute on chronic diastolic (congestive) heart failure (12) Dehydration Code(s): E86.0 - DEHYDRATION (13) Diabetes Code(s): E11.9 - TYPE 2 DIABETES MELLITUS WITHOUT COMPLICATIONS Qualifiers: Diabetes mellitus type: type 2 Diabetes mellitus vermin exterminator insulin use: without vermin exterminator use (14) Hx of CABG Code(s): Z95.1 - PRESENCE OF AORTOCORONARY BYPASS GRAFT (15) Paroxysmal atrial fibrillation with rapid ventricular response Code(s): I48.0 - PAROXYSMAL ATRIAL FIBRILLATION (16) Syncope, near Code(s): R55 - SYNCOPE AND COLLAPSE Assessment/Plan Assessment: - Orthostatic hypotension with falls ? dehydration as suggested by azotemia, ? medication related, ? progressive anemia - Anemia progression down to 8.8 but no overt bleeding seen. No flank hematomas are noted. Fecal impaction may be impeding the presentation. Cannot exclude oozing from portal gastropathy. 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 hepatoma -- Serial CBCs -- Observe for bleeding especially given the elevated INR. -- PPI empirically -- Miralax -- TFTs, AFP -- Fluid resuscitation -- May need repeat EGD when resuscitated. -- Will stop iron. Can give Venofer if necessary
--- NOTE | 2019-03-03 16:24 | CON.CARD ---
Consult Consult Specialty:: Cardiology Referred by:: Lalo Hampton MD; Santana Castillo MD Reason for Consultation:: Dizziness and weakness - History of Present Illness Chief Complaint: Dizziness, weakness, hypotension History of Present Illness: 83 y/o female hx of CAD, s/p PCI, CABG (2003), DCHF, HTN, NIDDM, Hyperlipdemia, PAF with RVR on coumadin per INR, chronic right sided pleural effusions s/p thoracocentesis, diverticulosis, gastritis, chronic anemia, RESTREPO with cirrhosis , anxiety, diastolic CHF exacerbations 2/2 rate-related issues stemming from her afib, last time early 02/2019 p/w generalized weakness, fatigue, near syncope, hypotension, and mechanical fall without chest pain, shortness of breath, fevers, chills, nausea, vomiting, abdominal pain, dysuria or pain, true syncope, palpitations, orthopnea, PND or LE edema, found to have 1 gm Hgb drop from previous, supratherapeutic INR and acute on CKD. - History Source History Provided By: Medical Record Limitations to Obtaining History: Poor Historian - Past Medical History Cardio/Vascular: Yes: CAD, CHF, HTN, Hyperlipdemia Pulmonary: Yes: Other (Stable lung nodules) Gastrointestinal: Yes: Diverticulosis, Gastritis Psych: Yes: Anxiety Endocrine: Yes: Diabetes Mellitus - Past Surgical History Past Surgical History: Yes: CABG, Hysterectomy - Alcohol/Substance Use Hx Alcohol Use: No History of Substance Use: reports: None - Smoking History Smoking history: Unknown if ever smoked Have you smoked in the past 12 months: No Aproximately how many cigarettes per day: 0 If you are a former smoker, when did you quit?: 1981 - Social History ADL: Independent 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 History of Recent Travel: No Home Medications - Allergies Allergies/Adverse Reactions: Allergies Allergy/AdvReac Type Severity Reaction Status Date / Time pollen extracts Allergy Unknown Verified 02/01/19 18:48 HONEYDEW Allergy Severe Difficulty Uncoded 02/01/19 18:48 Breathing HAYFEVER,GRASS,POLLEN Allergy Uncoded 02/01/19 18:48 - Home Medications Home Medications: Ambulatory Orders Ranolazine [Ranexa] 500 mg PO BID 11/25/11 Folic Acid - 400 mcg PO ASDIR 02/16/12 Tiotropium [place] [Spiriva] 18 mcg IH DAILY PRN 02/09/15 Albuterol Sulfate [Proair Respiclick] 90 mcg IH BID PRN 03/18/16 Beclomethasone Dipropionate [Qvar] 0.04 mg IH BID 03/18/16 Furosemide [Lasix -] 40 mg PO DAILY 03/18/16 Glucosamine/D3/Boswellia Eda [Osteo Bi-Flex Caplet] 1 tab PO BID 03/18/16 Iron,Carbonyl [Feosol] 65 mg PO DAILY 03/18/16 Mometasone Furoate [Asmanex] 220 mcg IH BID PRN 03/18/16 Amiodarone HCl 200 mg PO BID 02/01/19 Atorvastatin Ca [Lipitor] 80 mg PO HS 02/01/19 Cyanocobalamin (Vitamin B-12) [Vitamin B-12] 1,000 mcg PO DAILY 02/01/19 Icosapent Ethyl [Vascepa] 2 gm PO BID 02/01/19 Losartan Potassium 25 mg PO DAILY 02/01/19 Metoprolol Succinate [Toprol Xl] 50 mg PO BID 02/01/19 Sitagliptin Phos/Metformin HCl [Janumet 50-1,000 mg Tablet] 1 each PO BID Vitamin E 1 tab PO DAILY 02/01/19 Aspirin 81 mg PO DAILY 03/03/19 Isosorbide Mononitrate [Imdur -] 30 mg PO DAILY 03/03/19 Sitagliptin Phosphate [Januvia] 25 mg PO DAILY 03/03/19 Family Disease History - Family Disease History Family Disease History: Diabetes: Mother, Heart Disease: Mother Review of Systems - Review of Systems Constitutional: reports: Weakness Neurological: reports: Dizziness Vital Signs: Vital Signs Temperature 97.4 F L 03/03/19 12:03 Pulse Rate 92 H 03/03/19 14:52 Respiratory Rate 18 03/03/19 14:52 Blood Pressure 90/62 03/03/19 14:52 O2 Sat by Pulse Oximetry (%) 97 03/03/19 14:52 Constitutional: Yes: No Distress, Calm Neck: Yes: Supple Respiratory: Yes: Regular, CTA Bilaterally Gastrointestinal: Yes: Normal Bowel Sounds, Soft Cardiovascular: Yes: Regular Rate and Rhythm JVD: No Carotid Bruit: No Heart Sounds: Yes: S1, S2 Murmur: Yes: Systolic Murmur, Grade 1 Edema: Yes Edema: LLE: Trace, RLE: Trace - Other Data Labs, Other Data: CBC, BMP 03/03/19 12:30 03/03/19 12:30 INR, PTT INR 4.90 (0.83-1.09) H* 03/03/19 12:30 Troponin, BNP 03/03/19 03/03/19 12:30 12:30 Troponin I < 0.02 B-Natriuretic Peptide 1292.5 H Troponin, BNP 03/03/19 03/03/19 12:30 12:30 Troponin I < 0.02 B-Natriuretic Peptide 1292.5 H Afib @ 94 Ejection Fraction %: LVEF > or = 40 % Imaging - Results Chest X-ray: Report Reviewed (Improved aeration) Problem List - Problems (1) Abnormal TSH Code(s): R79.89 - OTHER SPECIFIED ABNORMAL FINDINGS OF BLOOD CHEMISTRY (2) Anemia Code(s): D64.9 - ANEMIA, UNSPECIFIED Qualifiers: Anemia type: unspecified type Qualified Code(s): D64.9 - Anemia, unspecified (3) Hypotension Code(s): I95.9 - HYPOTENSION, UNSPECIFIED Qualifiers: Hypotension type: hypotension due to hypovolemia Qualified Code(s): I95.89 - Other hypotension; E86.1 - Hypovolemia (4) Mesenteric mass Code(s): K63.89 - OTHER SPECIFIED DISEASES OF INTESTINE (5) Portal hypertensive gastropathy Code(s): K76.6 - PORTAL HYPERTENSION; K31.89 - OTHER DISEASES OF STOMACH AND DUODENUM (6) Oztra-sc-vpekjtx kidney injury Code(s): N17.9 - ACUTE KIDNEY FAILURE, UNSPECIFIED; N18.9 - CHRONIC KIDNEY DISEASE, UNSPECIFIED Qualifiers: Chronic kidney disease stage: stage 2 (mild) (7) CHF (congestive heart failure) Code(s): I50.9 - HEART FAILURE, UNSPECIFIED Qualifiers: Heart failure type: diastolic Heart failure chronicity: chronic Qualified Code(s): I50.32 - Chronic diastolic (congestive) heart failure (8) Hx of CABG Code(s): Z95.1 - PRESENCE OF AORTOCORONARY BYPASS GRAFT (9) Hyperlipidemia Code(s): E78.5 - HYPERLIPIDEMIA, UNSPECIFIED Qualifiers: Hyperlipidemia type: mixed hyperlipidemia Qualified Code(s): E78.2 - Mixed hyperlipidemia (10) Hypertension Code(s): I10 - ESSENTIAL (PRIMARY) HYPERTENSION Qualifiers: Hypertension type: essential hypertension Qualified Code(s): I10 - Essential (primary) hypertension (11) Paroxysmal atrial fibrillation with rapid ventricular response Code(s): I48.0 - PAROXYSMAL ATRIAL FIBRILLATION (12) Syncope, near Code(s): R55 - SYNCOPE AND COLLAPSE Assessment/Plan 02/02/2019 Chest CTA: No PE, increased bilateral pleural effusions R>L c/w pulm vascular congestion 02/01/2019 Lexiscan Myoview: No ischemia, LVEF 48% 02/02/2019 Echo: Mild cLVH normal LV and RV size and fxn, mild LAE, mild , tr TR RVSP 23 mmHg, pleural effusion 12/08/2018 Echo: cLVH with normal LVEF 65-70%, mild LAE 4.6 cm, mild CHILO, normal RV size and fxn, mild MR, mild-mod TR RVSP 31 mmHg 1. Weakness, fatigue, near syncope due to hypovolemic hypotension 2. Chronic anemia with history of diverticulosis and gastritis 3. Chronic diastolic heart failure and bilateral pleural effusions R>L due to medication and diet noncompliance 4. Paroxysmal AF with RVR with supratherapeutic INR 5. CAD s/p CABG, PCI, angina 6. Type 2 DM 7. Hyperlipidemia 8. Acute on CKD pre-renal 9. HTN 10. RESTREPO with cirrhosis 11. COPD 12. 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 Abnormal TSH, ? sick euthyroid vs amio effects PLAN: 1. IV hydration and hold diuresis and metformin with monitoring renal recovery and electrolytes 2. Trend INR and Hgb, holding Xarelto and ASA 81 qd pending hemostasis, check full TFT panel 3. Hold Toprol XL 50 mg BID, Losartan 25 mg QD, Imdur 30 qd pending hemodynamic stability 4. Continue Ranexa 500 bid, decreased amio 200 qd, Lipitor 80 qd, Vascepa 2 bid 5. Bronchodilator, O2 as needed, empiric PPI 6. CT with contrast when renal function permits to assess status of mesenteric mass and exclude other occult neoplasm ? hepatoma 7. Follow up with Dr. Sage upon discharge 8. Thank you for consultative opportunity
[2019-03-03] MEDS ORDERED: DEXTROSE 5%-0.45% SALINE 1,000 ML IV SCH (17:15)
[2019-03-03] MEDS: INSULIN SLIDING SCALE (NOVOLOG) 1 VIAL SQ SCH ×2 (17:51→21:38)
[2019-03-03] MEDS ORDERED: INSULIN REGULAR HUMAN 100 UNITS/ML *VIAL ONE (17:52)
[2019-03-03] MEDS ORDERED: PHYTONADIONE 10 MG/1 ML AMP IVPB ONE (18:00)
[2019-03-03] MEDS: POLYETHYLENE GLYCOL 3350 119 GM BTL PO SCH (21:34)
[2019-03-03] MEDS: ATORVASTATIN CA 80 MG TABLET (FP) PO SCH (21:38)
[2019-03-03] MEDS: RANOLAZINE E.R. 500 MG TABLET (FP) PO SCH (21:38)
[2019-03-03] MEDS ORDERED: PATIENT'S OWN MEDICATION (NON-FORMULARY) (Icosapent Ethyl [Vascepa] 2 GM) PO SCH (22:00)
[2019-03-03] MEDS ORDERED: BECLOMETHASONE DIPROPIONATE IH SCH (22:00)
[2019-03-03] MEDS ORDERED: AMIODARONE HCL 200 MG TABLET (FP) PO SCH (22:00)
[2019-03-03 22:13] LABS: HEMATOCRIT 26.4 % (32.4-45.2); HEMOGLOBIN 8.9 GM/dL (10.7-15.3); MCHC 33.6 g/dl (32.0-36.0); MEAN CELL VOLUME 92.2 fl (80-96); MEAN PLT VOLUME 8.6 fl (7.5-11.1); PLATELET COUNT 229 K/MM3 (134-434); RBC 2.86 M/mm3 (3.60-5.2); RDW 16.3 % (11.6-15.6); WHITE BLOOD COUNT 5.5 K/mm3 (4.0-10.0)
[2019-03-03 22:18] LABS: PH,URINE 5.5 (5.0-8.0); URINE APPEARANCE CLEAR; URINE BILIRUBIN NEGATIVE (NEGATIVE); URINE COLOR YELLOW; URINE GLUCOSE (UA) NEGATIVE (NEGATIVE); URINE KETONE NEGATIVE (NEGATIVE); URINE LEUK ESTERASE NEGATIVE (NEGATIVE); URINE NITRITE NEGATIVE (NEGATIVE); URINE PROTEIN NEGATIVE (NEGATIVE); URINE UROBILINOGEN 0.2 mg/dL (0.2-1.0)
[2019-03-03] MEDS: MOMETASONE FUROATE 220 MCG/IH INHALER IH SCH (22:28)
[2019-03-04] MEDS: INSULIN SLIDING SCALE (NOVOLOG) 1 VIAL SQ SCH ×4 (06:43→21:37)
[2019-03-04 07:54] LABS: BASO % 0.7 % (0-2.0); EOS % 3.8 % (0-4.5); HEMATOCRIT 28.5 % (32.4-45.2); HEMOGLOBIN 9.4 GM/dL (10.7-15.3); LYMPH % 12.9 % (8-40); MCH 31.1 pg (25.7-33.7); MCHC 33.2 g/dl (32.0-36.0); MEAN CELL VOLUME 93.7 fl (80-96); MONO % 6.3 % (3.8-10.2); NEUT % 76.3 % (42.8-82.8); PLATELET COUNT 279 K/MM3 (134-434); RBC 3.04 M/mm3 (3.60-5.2); RDW 16.4 % (11.6-15.6); WHITE BLOOD COUNT 6.1 K/mm3 (4.0-10.0)
[2019-03-04 08:07] LABS: BILIRUBIN,TOTAL 0.8 mg/dL (0.2-1); BLOOD UREA NITROGEN 32.2 mg/dL (7-18); CALCIUM 9.5 mg/dL (8.5-10.1); CREATININE 1.4 mg/dL (0.55-1.3); MAGNESIUM 2.2 mg/dL (1.8-2.4); PHOSPHOROUS 2.8 mg/dL (2.5-4.9); POTASSIUM 4.3 mmol/L (3.5-5.1); TOT PROT 6.4 g/dl (6.4-8.2)
[2019-03-04 08:39] LABS: INR 1.6 (0.83-1.09)
[2019-03-04] MEDS ORDERED: PT OWN MED DRAWER 7, Y5N ONE ×2 (09:45→12:23)
[2019-03-04] MEDS: ISOSORBIDE MONONITRATE 30 MG TAB.SR.24H (FP) PO SCH (09:59)
[2019-03-04] MEDS: PANTOPRAZOLE SODIUM 40 MG VIAL IVPUSH SCH ×2 (09:59→21:36)
[2019-03-04] MEDS: RANOLAZINE E.R. 500 MG TABLET (FP) PO SCH ×2 (09:59→21:36)
[2019-03-04] MEDS: CYANOCOBALAMIN 1,000 MCG TABLET (FP) PO SCH (09:59)
[2019-03-04] MEDS: AMIODARONE HCL 200 MG TABLET (FP) PO SCH (10:00)
[2019-03-04] MEDS: POLYETHYLENE GLYCOL 3350 119 GM BTL PO SCH ×2 (10:00→21:36)
[2019-03-04] MEDS ORDERED: VITAMIN E PO SCH ×2 (10:00)
[2019-03-04] MEDS: MOMETASONE FUROATE 220 MCG/IH INHALER IH SCH ×2 (10:00→21:37)
[2019-03-04] MEDS: FOLIC ACID 1 MG TABLET (FP) PO SCH (10:00)
[2019-03-04] MEDS ORDERED: FERROUS SO4 325 MG TABLET (FP) PO SCH (10:00)
[2019-03-04] MEDS ORDERED: PATIENT'S OWN MEDICATION (NON-FORMULARY) (Tiotropium Bromide [Spiriva] 18 MCG) IH SCH (10:00)
[2019-03-04] MEDS: TIOTROPIUM BROMIDE 2.5 MCG (SPIRIVA) RESPIMAT INHALER IH SCH (13:45)
[2019-03-04] MEDS: VITAMIN E 400 INTERNATIONAL-UNITS CAPSULE (FP) PO SCH (13:45)
--- NOTE | 2019-03-04 16:01 | PN ---
Progress Note, Physician History of Present Illness: Reports improvement in generalized weakness, fatigue, near syncope, hypotension , supratherapeutic INR and acute on CKD with IVF. - Current Medication List Current Medications: Active Medications Acetaminophen (Tylenol -) 650 mg PO Q4H PRN PRN Reason: FEVER Amiodarone HCl (Cordarone -) 200 mg PO DAILY [facility] Last Admin: 03/04/19 10:00 Dose: 200 mg Atorvastatin Calcium (Lipitor -) 80 mg PO HS [facility] Last Admin: 03/03/19 21:38 Dose: 80 mg Cyanocobalamin (Vitamin B12 -) 1,000 mcg PO DAILY [facility] Last Admin: 03/04/19 09:59 Dose: 1,000 mcg Docusate Sodium (Colace -) 100 mg PO BID [facility] Folic Acid (Folic Acid -) 1 mg PO DAILY [facility] Last Admin: 03/04/19 10:00 Dose: 1 mg Insulin Aspart (Novolog Vial Sliding Scale -) 1 vial SQ [facility]; Protocol Last Admin: 03/04/19 12:01 Dose: 4 unit Isosorbide Mononitrate (Imdur -) 30 mg PO DAILY [facility] Last Admin: 03/04/19 09:59 Dose: 30 mg Metoprolol Succinate (Toprol Xl -) 50 mg PO BID [facility] Last Admin: 03/04/19 09:59 Dose: 50 mg Mometasone Furoate (Asmanex 220mcg -) 1 puff IH BID [facility] Last Admin: 03/04/19 10:00 Dose: 1 puff Non-Formulary Medication (Albuterol Sulfate [Proair Respiclick]) 90 mcg IH BID PRN PRN Reason: SHORTNESS OF BREATH Non-Formulary Medication (Icosapent Ethyl [Vascepa]) 2 gm PO BID [facility] Pantoprazole Sodium (Protonix Iv) 40 mg IVPUSH BID [facility] Last Admin: 03/04/19 09:59 Dose: 40 mg Polyethylene Glycol (Miralax (For Daily Use) -) 17 gm PO BID [facility] Last Admin: 03/04/19 10:00 Dose: 17 gm Ranolazine (Ranexa -) 500 mg PO BID [facility] Last Admin: 03/04/19 09:59 Dose: 500 mg Tiotropium [place] (Spiriva Respimat) 2 puff IH DAILY [facility] Last Admin: 03/04/19 13:45 Dose: 2 puff Vitamin E (Vitamin E -) 400 unit PO DAILY [facility] Last Admin: 03/04/19 13:45 Dose: 400 unit - Objective Vital Signs: Vital Signs Temperature 98.0 F 03/04/19 13:39 Pulse Rate 97 H 03/04/19 13:39 Respiratory Rate 20 03/04/19 13:39 Blood Pressure 107/70 03/04/19 13:39 O2 Sat by Pulse Oximetry (%) 99 03/03/19 20:41 Constitutional: Yes: No Distress, Calm Neck: Yes: Supple Cardiovascular: Yes: Regular Rate and Rhythm Respiratory: Yes: Regular, Diminished Gastrointestinal: Yes: Normal Bowel Sounds, Soft Edema: No Labs: CBC, BMP 03/04/19 06:10 03/04/19 06:10 INR, PTT INR 1.60 (0.83-1.09) H 03/04/19 06:10 - ....Imaging EKG: Report Reviewed (Tele: afib) Problem List - Problems (1) Abnormal TSH Code(s): R79.89 - OTHER SPECIFIED ABNORMAL FINDINGS OF BLOOD CHEMISTRY (2) Anemia Code(s): D64.9 - ANEMIA, UNSPECIFIED Qualifiers: Anemia type: unspecified type Qualified Code(s): D64.9 - Anemia, unspecified (3) Hypotension Code(s): I95.9 - HYPOTENSION, UNSPECIFIED Qualifiers: Hypotension type: hypotension due to hypovolemia Qualified Code(s): I95.89 - Other hypotension; E86.1 - Hypovolemia (4) Mesenteric mass Code(s): K63.89 - OTHER SPECIFIED DISEASES OF INTESTINE (5) Portal hypertensive gastropathy Code(s): K76.6 - PORTAL HYPERTENSION; K31.89 - OTHER DISEASES OF STOMACH AND DUODENUM (6) [id number] kidney injury Code(s): N17.9 - ACUTE KIDNEY FAILURE, UNSPECIFIED; N18.9 - CHRONIC KIDNEY DISEASE, UNSPECIFIED Qualifiers: Chronic kidney disease stage: stage 2 (mild) (7) CHF (congestive heart failure) Code(s): I50.9 - HEART FAILURE, UNSPECIFIED Qualifiers: Heart failure type: diastolic Heart failure chronicity: chronic Qualified Code(s): I50.32 - Chronic diastolic (congestive) heart failure (8) Hx of CABG Code(s): Z95.1 - PRESENCE OF AORTOCORONARY BYPASS GRAFT (9) Hyperlipidemia Code(s): E78.5 - HYPERLIPIDEMIA, UNSPECIFIED Qualifiers: Hyperlipidemia type: mixed hyperlipidemia Qualified Code(s): E78.2 - Mixed hyperlipidemia (10) Hypertension Code(s): I10 - ESSENTIAL (PRIMARY) HYPERTENSION Qualifiers: Hypertension type: essential hypertension Qualified Code(s): I10 - Essential (primary) hypertension (11) Paroxysmal atrial fibrillation with rapid ventricular response Code(s): I48.0 - PAROXYSMAL ATRIAL FIBRILLATION (12) Syncope, near Code(s): R55 - SYNCOPE AND COLLAPSE Assessment/Plan 02/02/2019 Chest CTA: No PE, increased bilateral pleural effusions R>L c/w pulm vascular congestion 02/01/2019 Lexiscan Myoview: No ischemia, LVEF 48% 02/02/2019 Echo: Mild cLVH normal LV and RV size and fxn, mild LAE, mild , tr TR RVSP 23 mmHg, pleural effusion 12/08/2018 Echo: cLVH with normal LVEF 65-70%, mild LAE 4.6 cm, mild CHILO, normal RV size and fxn, mild MR, mild-mod TR RVSP 31 mmHg 1. Weakness, fatigue, near syncope due to hypovolemic hypotension 2. Chronic anemia with history of diverticulosis and gastritis 3. Chronic diastolic heart failure and bilateral pleural effusions R>L due to medication and diet noncompliance 4. Paroxysmal AF with RVR with supratherapeutic INR 5. CAD s/p CABG, PCI, angina 6. Type 2 DM 7. Hyperlipidemia 8. Acute on CKD pre-renal improving 9. HTN 10. RESTREPO with cirrhosis 11. 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 Abnormal TSH, ? sick euthyroid vs amio effects PLAN: 1. IV hydration and hold diuresis and metformin with monitoring renal recovery and electrolytes 2. Trend INR and Hgb, holding Xarelto and ASA 81 qd pending hemostasis, check full TFT panel 3. Hold Toprol XL 50 mg BID, Losartan 25 mg QD, Imdur 30 qd pending hemodynamic stability 4. Continue Ranexa 500 bid, amio 200 qd, Lipitor 80 qd, Vascepa 2 bid 5. Bronchodilator, O2 as needed, empiric PPI 6. CT with contrast when renal function permits to assess status of mesenteric mass and exclude other occult neoplasm ? hepatoma 7. Follow up with Dr. Sage upon discharge
--- NOTE | 2019-03-04 16:43 | PN ---
Progress Note, Physician Chief Complaint: Ms Alexis says she is feeling better today. Says she is feeling stronger. She is not having lightheadedness. She denies cp, sob, n/v. - Current Medication List Current Medications: Active Medications Acetaminophen (Tylenol -) 650 mg PO Q4H PRN PRN Reason: FEVER Amiodarone HCl (Cordarone -) 200 mg PO DAILY [facility] Last Admin: 03/04/19 10:00 Dose: 200 mg Atorvastatin Calcium (Lipitor -) 80 mg PO HS [facility] Last Admin: 03/03/19 21:38 Dose: 80 mg Cyanocobalamin (Vitamin B12 -) 1,000 mcg PO DAILY [facility] Last Admin: 03/04/19 09:59 Dose: 1,000 mcg Docusate Sodium (Colace -) 100 mg PO BID [facility] Folic Acid (Folic Acid -) 1 mg PO DAILY [facility] Last Admin: 03/04/19 10:00 Dose: 1 mg Insulin Aspart (Novolog Vial Sliding Scale -) 1 vial SQ [facility]; Protocol Last Admin: 03/04/19 12:01 Dose: 4 unit Isosorbide Mononitrate (Imdur -) 30 mg PO DAILY [facility] Last Admin: 03/04/19 09:59 Dose: 30 mg Metoprolol Succinate (Toprol Xl -) 50 mg PO BID [facility] Last Admin: 03/04/19 09:59 Dose: 50 mg Mometasone Furoate (Asmanex 220mcg -) 1 puff IH BID [facility] Last Admin: 03/04/19 10:00 Dose: 1 puff Non-Formulary Medication (Albuterol Sulfate [Proair Respiclick]) 90 mcg IH BID PRN PRN Reason: SHORTNESS OF BREATH Non-Formulary Medication (Icosapent Ethyl [Vascepa]) 2 gm PO BID [facility] Pantoprazole Sodium (Protonix Iv) 40 mg IVPUSH BID [facility] Last Admin: 03/04/19 09:59 Dose: 40 mg Polyethylene Glycol (Miralax (For Daily Use) -) 17 gm PO BID [facility] Last Admin: 03/04/19 10:00 Dose: 17 gm Ranolazine (Ranexa -) 500 mg PO BID [facility] Last Admin: 03/04/19 09:59 Dose: 500 mg Tiotropium [place] (Spiriva Respimat) 2 puff IH DAILY [facility] Last Admin: 03/04/19 13:45 Dose: 2 puff Vitamin E (Vitamin E -) 400 unit PO DAILY [facility] Last Admin: 03/04/19 13:45 Dose: 400 unit - Objective Vital Signs: Vital Signs Temperature 36.7 C 03/04/19 13:39 Pulse Rate 97 H 03/04/19 13:39 Respiratory Rate 20 03/04/19 13:39 Blood Pressure 107/70 03/04/19 13:39 O2 Sat by Pulse Oximetry (%) 99 03/04/19 10:00 Constitutional: Yes: Well Nourished, No Distress, Calm Cardiovascular: Yes: Tachycardia, Pulse Irregular. No: Gallop, Murmur, Rub Respiratory: Yes: Regular, CTA Bilaterally. No: Rales, Rhonchi, Wheezes Gastrointestinal: Yes: Normal Bowel Sounds, Soft. No: Distention, Tenderness Extremities: Yes: WNL Edema: LLE: Trace, RLE: Trace Labs: CBC, BMP 03/04/19 06:10 03/04/19 06:10 INR, PTT INR 1.60 (0.83-1.09) H 03/04/19 06:10 Problem List - Problems (1) Anemia Code(s): D64.9 - ANEMIA, UNSPECIFIED Qualifiers: Anemia type: unspecified type Qualified Code(s): D64.9 - Anemia, unspecified (2) Syncope, near Code(s): R55 - SYNCOPE AND COLLAPSE (3) Hypotension Code(s): I95.9 - HYPOTENSION, UNSPECIFIED Qualifiers: Hypotension type: hypotension due to hypovolemia Qualified Code(s): I95.89 - Other hypotension; E86.1 - Hypovolemia (4) CKD (chronic kidney disease) Code(s): N18.9 - CHRONIC KIDNEY DISEASE, UNSPECIFIED (5) Chronic atrial fibrillation Code(s): I48.2 - CHRONIC ATRIAL FIBRILLATION (6) Abnormal TSH Code(s): R79.89 - OTHER SPECIFIED ABNORMAL FINDINGS OF BLOOD CHEMISTRY (7) CHF (congestive heart failure) Code(s): I50.9 - HEART FAILURE, UNSPECIFIED Qualifiers: Heart failure type: diastolic Heart failure chronicity: chronic Qualified Code(s): I50.32 - Chronic diastolic (congestive) heart failure (8) Diabetes Code(s): E11.9 - TYPE 2 DIABETES MELLITUS WITHOUT COMPLICATIONS Qualifiers: Diabetes mellitus type: type 2 Diabetes mellitus shelter insulin use: without shelter use (9) Hx of CABG Code(s): Z95.1 - PRESENCE OF AORTOCORONARY BYPASS GRAFT (10) Hyperlipidemia Code(s): E78.5 - HYPERLIPIDEMIA, UNSPECIFIED Qualifiers: Hyperlipidemia type: mixed hyperlipidemia Qualified Code(s): E78.2 - Mixed hyperlipidemia (11) Coumadin toxicity Code(s): T45.511A - POISONING BY ANTICOAGULANTS, ACCIDENTAL, INIT Qualifiers: Encounter type: initial encounter Injury intent: accidental or unintentional Qualified Code(s): T45.511A - Poisoning by anticoagulants, accidental (unintentional), initial encounter Assessment/Plan (1) Anemia Assessment/Plan: -improved today -unclear cause as to why decreased -will continue to hold aspirin and xarelto -will change protonix to 40mg po daily starting tomorrow Code(s): D64.9 - ANEMIA, UNSPECIFIED Qualifiers: Anemia type: unspecified type Qualified Code(s): D64.9 - Anemia, unspecified (2) Syncope, near Assessment/Plan: -continue gentle hydration Code(s): R55 - SYNCOPE AND COLLAPSE (3) Hypotension Assessment/Plan: -much improved -continue gentle hydration -closely monitor to make sure does not become fluid overloaded Code(s): I95.9 - HYPOTENSION, UNSPECIFIED Qualifiers: Hypotension type: hypotension due to hypovolemia Qualified Code(s): I95.89 - Other hypotension; E86.1 - Hypovolemia (4) CKD (chronic kidney disease) Assessment/Plan: -stable Code(s): N18.9 - CHRONIC KIDNEY DISEASE, UNSPECIFIED (5) Chronic atrial fibrillation Assessment/Plan: -cardiology note reviewed -amiodarone now 200mg daily -toprol xl restarted Code(s): I48.2 - CHRONIC ATRIAL FIBRILLATION (6) Abnormal TSH Assessment/Plan: -suspect secondary to amiodarone -FT4 normal Code(s): R79.89 - OTHER SPECIFIED ABNORMAL FINDINGS OF BLOOD CHEMISTRY (7) CHF (congestive heart failure) Assessment/Plan: -not in exacerbation -hold diuretics and gentle hydration Code(s): I50.9 - HEART FAILURE, UNSPECIFIED Qualifiers: Heart failure type: diastolic Heart failure chronicity: chronic Qualified Code(s): I50.32 - Chronic diastolic (congestive) heart failure (8) Diabetes Assessment/Plan: -diabetic diet -FSBS and SSI Code(s): E11.9 - TYPE 2 DIABETES MELLITUS WITHOUT COMPLICATIONS Qualifiers: Diabetes mellitus type: type 2 Diabetes mellitus shelter insulin use: without shelter use (9) Hx of CABG Assessment/Plan: -noted Code(s): Z95.1 - PRESENCE OF AORTOCORONARY BYPASS GRAFT (10) Hyperlipidemia Assessment/Plan: -continue home regimen Code(s): E78.5 - HYPERLIPIDEMIA, UNSPECIFIED Qualifiers: Hyperlipidemia type: mixed hyperlipidemia Qualified Code(s): E78.2 - Mixed hyperlipidemia (11) Coumadin toxicity Assessment/Plan: -unclear cause of elevated INR -patient states did not take coumadin accidentally -has not changed diet but may have a vitamin k deficient diet -s/p vitamin k with improvement -monitor INR Code(s): T45.511A - POISONING BY ANTICOAGULANTS, ACCIDENTAL, INIT Qualifiers: Encounter type: initial encounter Injury intent: accidental or unintentional Qualified Code(s): T45.511A - Poisoning by anticoagulants, accidental (unintentional), initial encounter
[2019-03-04] MEDS: DOCUSATE SODIUM 100 MG CAPSULE (FP) PO SCH (21:36)
[2019-03-04] MEDS: ATORVASTATIN CA 80 MG TABLET (FP) PO SCH (21:36)
[2019-03-05] MEDS: INSULIN SLIDING SCALE (NOVOLOG) 1 VIAL SQ SCH ×4 (06:01→22:14)
[2019-03-05 07:58] LABS: BASO % 0.6 % (0-2.0); EOS % 2.3 % (0-4.5); HEMATOCRIT 27.2 % (32.4-45.2); HEMOGLOBIN 9.3 GM/dL (10.7-15.3); MCH 31.3 pg (25.7-33.7); MCHC 34.2 g/dl (32.0-36.0); MEAN CELL VOLUME 91.6 fl (80-96); MEAN PLT VOLUME 8.3 fl (7.5-11.1); MONO % 6.6 % (3.8-10.2); NEUT % 80.5 % (42.8-82.8); PLATELET COUNT 251 K/MM3 (134-434); RBC 2.97 M/mm3 (3.60-5.2); RDW 16.2 % (11.6-15.6); WHITE BLOOD COUNT 6.2 K/mm3 (4.0-10.0)
[2019-03-05 08:11] LABS: CALCIUM 9.6 mg/dL (8.5-10.1); CREATININE 1.5 mg/dL (0.55-1.3); MAGNESIUM 2.3 mg/dL (1.8-2.4); PHOSPHOROUS 2.8 mg/dL (2.5-4.9); POTASSIUM 4.9 mmol/L (3.5-5.1)
[2019-03-05] MEDS ORDERED: ALBUTEROL SO4 2.5/IPRATROPIUM 0.5 INH SOL 3 ML VIAL.NEB. NEB ONE (08:48)
[2019-03-05] MEDS: VITAMIN E 400 INTERNATIONAL-UNITS CAPSULE (FP) PO SCH (09:01)
[2019-03-05] MEDS: PANTOPRAZOLE SODIUM 40 MG VIAL IVPUSH SCH (09:01)
[2019-03-05] MEDS: ISOSORBIDE MONONITRATE 30 MG TAB.SR.24H (FP) PO SCH (09:01)
[2019-03-05] MEDS: DOCUSATE SODIUM 100 MG CAPSULE (FP) PO SCH ×2 (09:01→22:14)
[2019-03-05] MEDS: MOMETASONE FUROATE 220 MCG/IH INHALER IH SCH ×2 (09:01→22:14)
[2019-03-05] MEDS: CYANOCOBALAMIN 1,000 MCG TABLET (FP) PO SCH (09:01)
[2019-03-05] MEDS: POLYETHYLENE GLYCOL 3350 119 GM BTL PO SCH ×2 (09:01→22:27)
[2019-03-05] MEDS: FOLIC ACID 1 MG TABLET (FP) PO SCH (09:01)
[2019-03-05] MEDS: RANOLAZINE E.R. 500 MG TABLET (FP) PO SCH ×2 (09:01→22:14)
[2019-03-05] MEDS: AMIODARONE HCL 200 MG TABLET (FP) PO SCH (09:01)
[2019-03-05] MEDS: TIOTROPIUM BROMIDE 2.5 MCG (SPIRIVA) RESPIMAT INHALER IH SCH (09:02)
[2019-03-05 09:07] LABS: INR 1.15 (0.83-1.09); PROTHROMBIN TIME (PATIENT) 13.6 SEC (9.7-13.0)
--- NOTE | 2019-03-05 10:12 | PN ---
Progress Note, Physician Chief Complaint: Ms Alexis says she is feeling lightheaded this morning, attributes it to eating late. No cp or n/v. Chronic sob. - Current Medication List Current Medications: Active Medications Acetaminophen (Tylenol -) 650 mg PO Q4H PRN PRN Reason: FEVER Amiodarone HCl (Cordarone -) 200 mg PO DAILY [facility] Last Admin: 03/05/19 09:01 Dose: 200 mg Atorvastatin Calcium (Lipitor -) 80 mg PO HS [facility] Last Admin: 03/04/19 21:36 Dose: 80 mg Cyanocobalamin (Vitamin B12 -) 1,000 mcg PO DAILY [facility] Last Admin: 03/05/19 09:01 Dose: 1,000 mcg Docusate Sodium (Colace -) 100 mg PO BID [facility] Last Admin: 03/05/19 09:01 Dose: 100 mg Folic Acid (Folic Acid -) 1 mg PO DAILY [facility] Last Admin: 03/05/19 09:01 Dose: 1 mg Insulin Aspart (Novolog Vial Sliding Scale -) [address] [facility]; Protocol Last Admin: 03/05/19 06:01 Dose: Not Given Isosorbide Mononitrate (Imdur -) 30 mg PO DAILY [facility] Last Admin: 03/05/19 09:01 Dose: 30 mg Metoprolol Succinate (Toprol Xl -) 50 mg PO BID [facility] Last Admin: 03/05/19 09:00 Dose: 50 mg Mometasone Furoate (Asmanex 220mcg -) 1 puff IH BID [facility] Last Admin: 03/05/19 09:01 Dose: 1 puff Non-Formulary Medication (Albuterol Sulfate [Proair Respiclick]) 90 mcg IH BID PRN PRN Reason: SHORTNESS OF BREATH Non-Formulary Medication (Icosapent Ethyl [Vascepa]) 2 gm PO BID [facility] [place] Polyethylene Glycol (Miralax (For Daily Use) -) 17 gm PO BID [facility] Last Admin: 03/05/19 09:01 Dose: 17 gm Ranolazine (Ranexa -) 500 mg PO BID [facility] Last Admin: 03/05/19 09:01 Dose: 500 mg Tiotropium [place] (Spiriva Respimat) 2 puff IH DAILY [facility] Last Admin: 03/05/19 09:02 Dose: 2 puff Vitamin E (Vitamin E -) 400 unit PO DAILY [facility] Last Admin: 03/05/19 09:01 Dose: 400 unit - Objective Vital Signs: Vital Signs Temperature 36.7 C 03/05/19 06:00 Pulse Rate 108 H 03/05/19 06:00 Respiratory Rate 20 03/05/19 06:00 Blood Pressure 125/81 03/05/19 06:00 O2 Sat by Pulse Oximetry (%) 97 03/04/19 21:00 Constitutional: Yes: Well Nourished, No Distress, Calm Cardiovascular: Yes: Tachycardia, Pulse Irregular. No: Gallop, Murmur, Rub Respiratory: Yes: Regular, On Nasal O2, Wheezes (slight). No: CTA Bilaterally, Rales, Rhonchi Gastrointestinal: Yes: Normal Bowel Sounds, Soft. No: Distention, Tenderness Extremities: Yes: WNL Edema: No Labs: CBC, BMP 03/05/19 06:35 03/05/19 06:35 INR, PTT INR 1.15 (0.83-1.09) H 03/05/19 06:35 Problem List - Problems (1) Anemia Code(s): D64.9 - ANEMIA, UNSPECIFIED Qualifiers: Anemia type: unspecified type Qualified Code(s): D64.9 - Anemia, unspecified (2) Syncope, near Code(s): R55 - SYNCOPE AND COLLAPSE (3) Hypotension Code(s): I95.9 - HYPOTENSION, UNSPECIFIED Qualifiers: Hypotension type: hypotension due to hypovolemia Qualified Code(s): I95.89 - Other hypotension; E86.1 - Hypovolemia (4) CKD (chronic kidney disease) Code(s): N18.9 - CHRONIC KIDNEY DISEASE, UNSPECIFIED (5) Chronic atrial fibrillation Code(s): I48.2 - CHRONIC ATRIAL FIBRILLATION (6) Abnormal TSH Code(s): R79.89 - OTHER SPECIFIED ABNORMAL FINDINGS OF BLOOD CHEMISTRY (7) CHF (congestive heart failure) Code(s): I50.9 - HEART FAILURE, UNSPECIFIED Qualifiers: Heart failure type: diastolic Heart failure chronicity: chronic Qualified Code(s): I50.32 - Chronic diastolic (congestive) heart failure (8) Diabetes Code(s): E11.9 - TYPE 2 DIABETES MELLITUS WITHOUT COMPLICATIONS Qualifiers: Diabetes mellitus type: type 2 Diabetes mellitus half-way insulin use: without half-way use (9) Hx of CABG Code(s): Z95.1 - PRESENCE OF AORTOCORONARY BYPASS GRAFT (10) Hyperlipidemia Code(s): E78.5 - HYPERLIPIDEMIA, UNSPECIFIED Qualifiers: Hyperlipidemia type: mixed hyperlipidemia Qualified Code(s): E78.2 - Mixed hyperlipidemia (11) Coumadin toxicity Code(s): T45.511A - POISONING BY ANTICOAGULANTS, ACCIDENTAL, INIT Qualifiers: Encounter type: initial encounter Injury intent: accidental or unintentional Qualified Code(s): T45.511A - Poisoning by anticoagulants, accidental (unintentional), initial encounter Assessment/Plan (1) Anemia Assessment/Plan: -stable -will continue to hold aspirin and xarelto -will trial off of protonix Code(s): D64.9 - ANEMIA, UNSPECIFIED Qualifiers: Anemia type: unspecified type Qualified Code(s): D64.9 - Anemia, unspecified (2) Syncope, near Assessment/Plan: -continue gentle hydration Code(s): R55 - SYNCOPE AND COLLAPSE (3) Hypotension Assessment/Plan: -resolved Code(s): I95.9 - HYPOTENSION, UNSPECIFIED Qualifiers: Hypotension type: hypotension due to hypovolemia Qualified Code(s): I95.89 - Other hypotension; E86.1 - Hypovolemia (4) CKD (chronic kidney disease) Assessment/Plan: -stable Code(s): N18.9 - CHRONIC KIDNEY DISEASE, UNSPECIFIED (5) Chronic atrial fibrillation Assessment/Plan: -cardiology note reviewed -amiodarone now 200mg daily -toprol xl restarted -slightly tachycardic Code(s): I48.2 - CHRONIC ATRIAL FIBRILLATION (6) Abnormal TSH Assessment/Plan: -suspect secondary to amiodarone -FT4 normal Code(s): R79.89 - OTHER SPECIFIED ABNORMAL FINDINGS OF BLOOD CHEMISTRY (7) CHF (congestive heart failure) Assessment/Plan: -not in exacerbation -hold diuretics and gentle hydration Code(s): I50.9 - HEART FAILURE, UNSPECIFIED Qualifiers: Heart failure type: diastolic Heart failure chronicity: chronic Qualified Code(s): I50.32 - Chronic diastolic (congestive) heart failure (8) Diabetes Assessment/Plan: -diabetic diet -FSBS and SSI Code(s): E11.9 - TYPE 2 DIABETES MELLITUS WITHOUT COMPLICATIONS Qualifiers: Diabetes mellitus type: type 2 Diabetes mellitus terminal clerk insulin use: without terminal clerk use (9) Hx of CABG Assessment/Plan: -noted Code(s): Z95.1 - PRESENCE OF AORTOCORONARY BYPASS GRAFT (10) Hyperlipidemia Assessment/Plan: -continue home regimen Code(s): E78.5 - HYPERLIPIDEMIA, UNSPECIFIED Qualifiers: Hyperlipidemia type: mixed hyperlipidemia Qualified Code(s): E78.2 - Mixed hyperlipidemia (11) Coumadin toxicity Assessment/Plan: -resolved -continue to monitor Code(s): T45.511A - POISONING BY ANTICOAGULANTS, ACCIDENTAL, INIT Qualifiers: Encounter type: initial encounter Injury intent: accidental or unintentional Qualified Code(s): T45.511A - Poisoning by anticoagulants, accidental (unintentional), initial encounter
[2019-03-05 12:35] LABS: ARTERIAL BLOOD GAS PCO2 45.2 mmHg (35-45); ARTERIAL BLOOD GAS PO2 123 mmHg (80-105); ARTERIAL BLOOD GAS pH 7.38 (7.35-7.45)
[2019-03-05 12:40] LABS: ALLENS TEST POSITIVE
[2019-03-05] MEDS ORDERED: FUROSEMIDE 40 MG/4 ML INJECTABLE VIAL IVPUSH ONE ×2 (13:42→17:00)
--- NOTE | 2019-03-05 13:43 | PN ---
Progress Note, Physician History of Present Illness: Reports dypnea and orthopnea off diuretics since resumed. CXR shows increased R> L effusions and congestion. - Current Medication List Current Medications: Active Medications Acetaminophen (Tylenol -) 650 mg PO Q4H PRN PRN Reason: FEVER Albuterol/Ipratropium (Duoneb -) 1 amp NEB RTID [facility] Amiodarone HCl (Cordarone -) 200 mg PO DAILY [facility] Last Admin: 03/05/19 09:01 Dose: 200 mg Atorvastatin Calcium (Lipitor -) 80 mg PO HS [facility] Last Admin: 03/04/19 21:36 Dose: 80 mg Cyanocobalamin (Vitamin B12 -) 1,000 mcg PO DAILY [facility] Last Admin: 03/05/19 09:01 Dose: 1,000 mcg Docusate Sodium (Colace -) 100 mg PO BID [facility] Last Admin: 03/05/19 09:01 Dose: 100 mg Folic Acid (Folic Acid -) 1 mg PO DAILY [facility] Last Admin: 03/05/19 09:01 Dose: 1 mg Furosemide (Lasix Injection -) 20 mg IVPUSH ONCE ONE Stop: 03/05/19 13:43 Insulin Aspart (Novolog Vial Sliding Scale -) 1 vial SQ ACHS [facility]; Protocol Last Admin: 03/05/19 11:50 Dose: 4 unit Isosorbide Mononitrate (Imdur -) 30 mg PO DAILY [facility] Last Admin: 03/05/19 09:01 Dose: 30 mg Metoprolol Succinate (Toprol Xl -) 50 mg PO BID [facility] Last Admin: 03/05/19 09:00 Dose: 50 mg Mometasone Furoate (Asmanex 220mcg -) 1 puff IH BID [facility] Last Admin: 03/05/19 09:01 Dose: 1 puff Polyethylene Glycol (Miralax (For Daily Use) -) 17 gm PO BID [facility] Last Admin: 03/05/19 09:01 Dose: 17 gm Ranolazine (Ranexa -) 500 mg PO BID [facility] Last Admin: 03/05/19 09:01 Dose: 500 mg Tiotropium [place] (Spiriva Respimat) 2 puff IH DAILY [facility] Last Admin: 03/05/19 09:02 Dose: 2 puff Vitamin E (Vitamin E -) 400 unit PO DAILY [facility] Last Admin: 03/05/19 09:01 Dose: 400 unit - Objective Vital Signs: Vital Signs Temperature 98.1 F 03/05/19 06:00 Pulse Rate 108 H 03/05/19 06:00 Respiratory Rate 20 03/05/19 06:00 Blood Pressure 125/81 03/05/19 06:00 O2 Sat by Pulse Oximetry (%) 97 03/04/19 21:00 Constitutional: Yes: No Distress, Calm Neck: Yes: Supple Cardiovascular: Yes: Pulse Irregular Respiratory: Yes: Regular, Diminished, On Nasal O2 Gastrointestinal: Yes: Normal Bowel Sounds, Soft Edema: No Labs: CBC, BMP 03/05/19 06:35 03/05/19 06:35 INR, PTT INR 1.15 (0.83-1.09) H 03/05/19 06:35 - ....Imaging Chest X-ray: Report Reviewed (Worse, increasing R>L effusion with congestion) Ultrasound: Report Reviewed (Abd US: Cirrhosis, cholelithiasis, bilateral effusions) EKG: Report Reviewed (Tele: Afib) Problem List - Problems (1) Abnormal TSH Code(s): R79.89 - OTHER SPECIFIED ABNORMAL FINDINGS OF BLOOD CHEMISTRY (2) Anemia Code(s): D64.9 - ANEMIA, UNSPECIFIED Qualifiers: Anemia type: unspecified type Qualified Code(s): D64.9 - Anemia, unspecified (3) Hypotension Code(s): I95.9 - HYPOTENSION, UNSPECIFIED Qualifiers: Hypotension type: hypotension due to hypovolemia Qualified Code(s): I95.89 - Other hypotension; E86.1 - Hypovolemia (4) Mesenteric mass Code(s): K63.89 - OTHER SPECIFIED DISEASES OF INTESTINE (5) Portal hypertensive gastropathy Code(s): K76.6 - PORTAL HYPERTENSION; K31.89 - OTHER DISEASES OF STOMACH AND DUODENUM (6) Ivppw-kq-vdamiym kidney injury Code(s): N17.9 - ACUTE KIDNEY FAILURE, UNSPECIFIED; N18.9 - CHRONIC KIDNEY DISEASE, UNSPECIFIED Qualifiers: Chronic kidney disease stage: stage 2 (mild) (7) CHF (congestive heart failure) Code(s): I50.9 - HEART FAILURE, UNSPECIFIED Qualifiers: Heart failure type: diastolic Heart failure chronicity: chronic Qualified Code(s): I50.32 - Chronic diastolic (congestive) heart failure (8) Hx of CABG Code(s): Z95.1 - PRESENCE OF AORTOCORONARY BYPASS GRAFT (9) Hyperlipidemia Code(s): E78.5 - HYPERLIPIDEMIA, UNSPECIFIED Qualifiers: Hyperlipidemia type: mixed hyperlipidemia Qualified Code(s): E78.2 - Mixed hyperlipidemia (10) Hypertension Code(s): I10 - ESSENTIAL (PRIMARY) HYPERTENSION Qualifiers: Hypertension type: essential hypertension Qualified Code(s): I10 - Essential (primary) hypertension (11) Paroxysmal atrial fibrillation with rapid ventricular response Code(s): I48.0 - PAROXYSMAL ATRIAL FIBRILLATION (12) Syncope, near Code(s): R55 - SYNCOPE AND COLLAPSE Assessment/Plan 02/02/2019 Chest CTA: No PE, increased bilateral pleural effusions R>L c/w pulm vascular congestion 02/01/2019 Lexiscan Myoview: No ischemia, LVEF 48% 02/02/2019 Echo: Mild cLVH normal LV and RV size and fxn, mild LAE, mild , tr TR RVSP 23 mmHg, pleural effusion 12/08/2018 Echo: cLVH with normal LVEF 65-70%, mild LAE 4.6 cm, mild CHILO, normal RV size and fxn, mild MR, mild-mod TR RVSP 31 mmHg 1. Weakness, fatigue, near syncope due to hypovolemic hypotension resolving 2. Chronic anemia with history of diverticulosis and gastritis 3. Acute on chronic diastolic heart failure and bilateral pleural effusions R>L 4. Paroxysmal AF with RVR with subtherapeutic INR 5. CAD s/p CABG, PCI, angina 6. Type 2 DM 7. Hyperlipidemia 8. Acute on CKD pre-renal improving 9. HTN 10. RESTREPO with cirrhosis, cholelithiasis 11. 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 Abnormal TSH, ? sick euthyroid vs amio effects PLAN: 1. Resume diuresis with monitoring diuretic response, renal recovery and electrolytes 2. Hold Xarelto 15 qd and ASA 81 qd pending possible right thoracentesis 3. Hold Toprol XL 50 mg BID, Losartan 25 mg QD, Imdur 30 qd 4. Continue Ranexa 500 bid, amio 200 qd, Lipitor 80 qd, Vascepa 2 bid 5. Bronchodilator, O2 as needed, empiric PPI 6. CT with contrast when renal function permits to assess status of mesenteric mass and exclude other occult neoplasm ? hepatoma 7. Follow up with Dr. Sage upon discharge
[2019-03-05] MEDS: ALBUTEROL SO4 2.5/IPRATROPIUM 0.5 INH SOL 3 ML VIAL.NEB. NEB SCH ×2 (16:10→20:05)
[2019-03-05] MEDS ORDERED: PT OWN MED DRAWER 7, Y5N ONE (21:29)
[2019-03-05] MEDS: ATORVASTATIN CA 80 MG TABLET (FP) PO SCH (22:14)
[2019-03-06 05:59] LABS: BASO % 0.6 % (0-2.0); EOS % 3.1 % (0-4.5); HEMATOCRIT 27.2 % (32.4-45.2); HEMOGLOBIN 9.4 GM/dL (10.7-15.3); LYMPH % 7.7 % (8-40); MCH 31.6 pg (25.7-33.7); MCHC 34.5 g/dl (32.0-36.0); MEAN CELL VOLUME 91.5 fl (80-96); MEAN PLT VOLUME 7.8 fl (7.5-11.1); MONO % 6.7 % (3.8-10.2); NEUT % 81.9 % (42.8-82.8); PLATELET COUNT 258 K/MM3 (134-434); RBC 2.97 M/mm3 (3.60-5.2); RDW 16.2 % (11.6-15.6); WHITE BLOOD COUNT 5.4 K/mm3 (4.0-10.0)
[2019-03-06 06:11] LABS: INR 1.18 (0.83-1.09)
[2019-03-06] MEDS: INSULIN SLIDING SCALE (NOVOLOG) 1 VIAL SQ SCH ×4 (06:24→22:05)
[2019-03-06 06:25] LABS: BLOOD UREA NITROGEN 28.2 mg/dL (7-18); CALCIUM 9.3 mg/dL (8.5-10.1); CREATININE 1.5 mg/dL (0.55-1.3); MAGNESIUM 2.2 mg/dL (1.8-2.4); PHOSPHOROUS 3.2 mg/dL (2.5-4.9); POTASSIUM 4.2 mmol/L (3.5-5.1)
[2019-03-06] MEDS: ALBUTEROL SO4 2.5/IPRATROPIUM 0.5 INH SOL 3 ML VIAL.NEB. NEB SCH ×3 (08:16→20:32)
--- NOTE | 2019-03-06 09:33 | PN ---
Progress Note, Physician Chief Complaint: Ms Alexis says she is feeling better today. Did not sleep well but better yesterday. Says her breathing is improved but still with shortness of breath. No cp or n/v - Current Medication List Current Medications: Active Medications Acetaminophen (Tylenol -) 650 mg PO Q4H PRN PRN Reason: FEVER Albuterol/Ipratropium (Duoneb -) 1 amp NEB RTID [facility] Last Admin: 03/06/19 08:16 Dose: 1 amp Amiodarone HCl (Cordarone -) 200 mg PO DAILY [facility] Last Admin: 03/05/19 09:01 Dose: 200 mg Atorvastatin Calcium (Lipitor -) 80 mg PO HS [facility] Last Admin: 03/05/19 22:14 Dose: 80 mg Cyanocobalamin (Vitamin B12 -) 1,000 mcg PO DAILY [facility] Last Admin: 03/05/19 09:01 Dose: 1,000 mcg Docusate Sodium (Colace -) 100 mg PO BID [facility] Last Admin: 03/05/19 22:14 Dose: 100 mg Folic Acid (Folic Acid -) 1 mg PO DAILY [facility] Last Admin: 03/05/19 09:01 Dose: 1 mg Furosemide (Lasix -) 40 mg PO DAILY [facility] Insulin Aspart (Novolog Vial Sliding Scale -) 1 vial SQ ACHS [facility]; Protocol Last Admin: 03/06/19 06:24 Dose: Not Given Isosorbide Mononitrate (Imdur -) 30 mg PO DAILY [facility] Last Admin: 03/05/19 09:01 Dose: 30 mg Metoprolol Succinate (Toprol Xl -) 50 mg PO BID [facility] Last Admin: 03/05/19 22:14 Dose: 50 mg Mometasone Furoate (Asmanex 220mcg -) 1 puff IH BID [facility] Last Admin: 03/05/19 22:14 Dose: 1 puff Polyethylene Glycol (Miralax (For Daily Use) -) 17 gm PO BID [facility] Last Admin: 03/05/19 22:27 Dose: 17 gm Ranolazine (Ranexa -) 500 mg PO BID [facility] Last Admin: 03/05/19 22:14 Dose: 500 mg Tiotropium [place] (Spiriva Respimat) 2 puff IH DAILY [facility] Last Admin: 03/05/19 09:02 Dose: 2 puff Vitamin E (Vitamin E -) 400 unit PO DAILY [facility] Last Admin: 03/05/19 09:01 Dose: 400 unit - Objective Vital Signs: Vital Signs Temperature 36.6 C 03/06/19 09:05 Pulse Rate 116 H 03/06/19 09:05 Respiratory Rate 19 03/06/19 09:05 Blood Pressure 120/62 03/06/19 09:05 O2 Sat by Pulse Oximetry (%) 98 03/05/19 21:00 Constitutional: Yes: Well Nourished, No Distress, Calm Cardiovascular: Yes: Tachycardia, Pulse Irregular. No: Gallop, Murmur, Rub Respiratory: Yes: Regular, Rhonchi (R base). No: CTA Bilaterally, Rales, Wheezes Gastrointestinal: Yes: Normal Bowel Sounds, Soft. No: Distention, Tenderness Extremities: Yes: WNL Edema: No Labs: CBC, BMP 03/06/19 05:20 03/06/19 05:20 INR, PTT INR 1.18 (0.83-1.09) H 03/06/19 05:20 Problem List - Problems (1) Anemia Code(s): D64.9 - ANEMIA, UNSPECIFIED Qualifiers: Anemia type: unspecified type Qualified Code(s): D64.9 - Anemia, unspecified (2) Syncope, near Code(s): R55 - SYNCOPE AND COLLAPSE (3) Hypotension Code(s): I95.9 - HYPOTENSION, UNSPECIFIED Qualifiers: Hypotension type: hypotension due to hypovolemia Qualified Code(s): I95.89 - Other hypotension; E86.1 - Hypovolemia (4) CKD (chronic kidney disease) Code(s): N18.9 - CHRONIC KIDNEY DISEASE, UNSPECIFIED (5) Chronic atrial fibrillation Code(s): I48.2 - CHRONIC ATRIAL FIBRILLATION (6) Abnormal TSH Code(s): R79.89 - OTHER SPECIFIED ABNORMAL FINDINGS OF BLOOD CHEMISTRY (7) CHF (congestive heart failure) Code(s): I50.9 - HEART FAILURE, UNSPECIFIED Qualifiers: Heart failure type: diastolic Heart failure chronicity: chronic Qualified Code(s): I50.32 - Chronic diastolic (congestive) heart failure (8) Diabetes Code(s): E11.9 - TYPE 2 DIABETES MELLITUS WITHOUT COMPLICATIONS Qualifiers: Diabetes mellitus type: type 2 Diabetes mellitus exterminator helper insulin use: without skilled nursing use (9) Hx of CABG Code(s): Z95.1 - PRESENCE OF AORTOCORONARY BYPASS GRAFT (10) Hyperlipidemia Code(s): E78.5 - HYPERLIPIDEMIA, UNSPECIFIED Qualifiers: Hyperlipidemia type: mixed hyperlipidemia Qualified Code(s): E78.2 - Mixed hyperlipidemia (11) Coumadin toxicity Code(s): T45.511A - POISONING BY ANTICOAGULANTS, ACCIDENTAL, INIT Qualifiers: Encounter type: initial encounter Injury intent: accidental or unintentional Qualified Code(s): T45.511A - Poisoning by anticoagulants, accidental (unintentional), initial encounter (12) Pleural effusion Code(s): J90 - PLEURAL EFFUSION, NOT ELSEWHERE CLASSIFIED Assessment/Plan (1) Anemia Assessment/Plan: -stable -will continue to hold aspirin and xarelto -will trial off of protonix -GI following, possible EGD Code(s): D64.9 - ANEMIA, UNSPECIFIED Qualifiers: Anemia type: unspecified type Qualified Code(s): D64.9 - Anemia, unspecified (2) Syncope, near Assessment/Plan: -stop IVF -given lasix Code(s): R55 - SYNCOPE AND COLLAPSE (3) Hypotension Assessment/Plan: -resolved Code(s): I95.9 - HYPOTENSION, UNSPECIFIED Qualifiers: Hypotension type: hypotension due to hypovolemia Qualified Code(s): I95.89 - Other hypotension; E86.1 - Hypovolemia (4) CKD (chronic kidney disease) Assessment/Plan: -stable Code(s): N18.9 - CHRONIC KIDNEY DISEASE, UNSPECIFIED (5) Chronic atrial fibrillation Assessment/Plan: -cardiology following -continue amiodarone and toprol xl -restart xarelto when safe Code(s): I48.2 - CHRONIC ATRIAL FIBRILLATION (6) Abnormal TSH Assessment/Plan: -suspect secondary to amiodarone -FT4 normal Code(s): R79.89 - OTHER SPECIFIED ABNORMAL FINDINGS OF BLOOD CHEMISTRY (7) CHF (congestive heart failure) Assessment/Plan: -slightly fluid overloaded -given IV lasix -restart oral lasix Code(s): I50.9 - HEART FAILURE, UNSPECIFIED Qualifiers: Heart failure type: diastolic Heart failure chronicity: chronic Qualified Code(s): I50.32 - Chronic diastolic (congestive) heart failure (8) Diabetes Assessment/Plan: -diabetic diet -FSBS and SSI Code(s): E11.9 - TYPE 2 DIABETES MELLITUS WITHOUT COMPLICATIONS Qualifiers: Diabetes mellitus type: type 2 Diabetes mellitus exterminator helper insulin use: without exterminator helper use (9) Hx of CABG Assessment/Plan: -noted Code(s): Z95.1 - PRESENCE OF AORTOCORONARY BYPASS GRAFT (10) Hyperlipidemia Assessment/Plan: -continue home regimen Code(s): E78.5 - HYPERLIPIDEMIA, UNSPECIFIED Qualifiers: Hyperlipidemia type: mixed hyperlipidemia Qualified Code(s): E78.2 - Mixed hyperlipidemia (11) Coumadin toxicity Assessment/Plan: -resolved -continue to monitor Code(s): T45.511A - POISONING BY ANTICOAGULANTS, ACCIDENTAL, INIT Qualifiers: Encounter type: initial encounter Injury intent: accidental or unintentional Qualified Code(s): T45.511A - Poisoning by anticoagulants, accidental (unintentional), initial encounter (12) R pleural effusion -newly found -received IV lasix yesterday and feels improved -will restart oral lasix -pulmonary consulted and will evaluate -may benefit from thoracentesis
[2019-03-06] MEDS ORDERED: FUROSEMIDE 40 MG TABLET (FP) PO SCH (10:00)
--- NOTE | 2019-03-06 10:09 | PN ---
Progress Note, Physician History of Present Illness: Continued dypnea on exertion and orthopnea requiring diuretics to resumed. CXR shows increased R>L effusions and congestion. Remains in rapid afib. - Current Medication List Current Medications: Active Medications Acetaminophen (Tylenol -) 650 mg PO Q4H PRN PRN Reason: FEVER Albuterol/Ipratropium (Duoneb -) 1 amp NEB RTID [facility] Last Admin: 03/06/19 08:16 Dose: 1 amp Amiodarone HCl (Cordarone -) 200 mg PO DAILY [facility] Last Admin: 03/05/19 09:01 Dose: 200 mg Atorvastatin Calcium (Lipitor -) 80 mg PO HS [facility] Last Admin: 03/05/19 22:14 Dose: 80 mg Cyanocobalamin (Vitamin B12 -) 1,000 mcg PO DAILY [facility] Last Admin: 03/05/19 09:01 Dose: 1,000 mcg Docusate Sodium (Colace -) 100 mg PO BID [facility] Last Admin: 03/05/19 22:14 Dose: 100 mg Folic Acid (Folic Acid -) 1 mg PO DAILY [facility] Last Admin: 03/05/19 09:01 Dose: 1 mg Furosemide (Lasix -) 40 mg PO DAILY [facility] Insulin Aspart (Novolog Vial Sliding Scale -) 1 vial SQ ACHS [facility]; Protocol Last Admin: 03/06/19 06:24 Dose: Not Given Isosorbide Mononitrate (Imdur -) 30 mg PO DAILY [facility] Last Admin: 03/05/19 09:01 Dose: 30 mg Metoprolol Succinate (Toprol Xl -) 50 mg PO BID [facility] Last Admin: 03/05/19 22:14 Dose: 50 mg Mometasone Furoate (Asmanex 220mcg -) 1 puff IH BID [facility] Last Admin: 03/05/19 22:14 Dose: 1 puff Polyethylene Glycol (Miralax (For Daily Use) -) 17 gm PO BID [facility] Last Admin: 03/05/19 22:27 Dose: 17 gm Ranolazine (Ranexa -) 500 mg PO BID [facility] Last Admin: 03/05/19 22:14 Dose: 500 mg Tiotropium [place] (Spiriva Respimat) 2 puff IH DAILY [facility] Last Admin: 03/05/19 09:02 Dose: 2 puff Vitamin E (Vitamin E -) 400 unit PO DAILY [facility] Last Admin: 03/05/19 09:01 Dose: 400 unit - Objective Vital Signs: Vital Signs Temperature 98 F 03/06/19 09:05 Pulse Rate 116 H 03/06/19 09:05 Respiratory Rate 19 03/06/19 09:05 Blood Pressure 120/62 03/06/19 09:05 O2 Sat by Pulse Oximetry (%) 98 03/05/19 21:00 Constitutional: Yes: No Distress, Calm Neck: Yes: Supple Cardiovascular: Yes: Tachycardia, Pulse Irregular Respiratory: Yes: Regular, Diminished, On Nasal O2 Gastrointestinal: Yes: Normal Bowel Sounds, Soft, Abdomen, Obese Edema: Yes Edema: LLE: Trace, RLE: Trace Labs: CBC, BMP 03/06/19 05:20 03/06/19 05:20 INR, PTT INR 1.18 (0.83-1.09) H 03/06/19 05:20 - ....Imaging EKG: Report Reviewed (Tele: Rapid afib) Problem List - Problems (1) Abnormal TSH Code(s): R79.89 - OTHER SPECIFIED ABNORMAL FINDINGS OF BLOOD CHEMISTRY (2) Anemia Code(s): D64.9 - ANEMIA, UNSPECIFIED Qualifiers: Anemia type: unspecified type Qualified Code(s): D64.9 - Anemia, unspecified (3) Hypotension Code(s): I95.9 - HYPOTENSION, UNSPECIFIED Qualifiers: Hypotension type: hypotension due to hypovolemia Qualified Code(s): I95.89 - Other hypotension; E86.1 - Hypovolemia (4) Mesenteric mass Code(s): K63.89 - OTHER SPECIFIED DISEASES OF INTESTINE (5) Portal hypertensive gastropathy Code(s): K76.6 - PORTAL HYPERTENSION; K31.89 - OTHER DISEASES OF STOMACH AND DUODENUM (6) Tfeot-cm-sehgylk kidney injury Code(s): N17.9 - ACUTE KIDNEY FAILURE, UNSPECIFIED; N18.9 - CHRONIC KIDNEY DISEASE, UNSPECIFIED Qualifiers: Chronic kidney disease stage: stage 2 (mild) (7) CHF (congestive heart failure) Code(s): I50.9 - HEART FAILURE, UNSPECIFIED Qualifiers: Heart failure type: diastolic Heart failure chronicity: chronic Qualified Code(s): I50.32 - Chronic diastolic (congestive) heart failure (8) Hx of CABG Code(s): Z95.1 - PRESENCE OF AORTOCORONARY BYPASS GRAFT (9) Hyperlipidemia Code(s): E78.5 - HYPERLIPIDEMIA, UNSPECIFIED Qualifiers: Hyperlipidemia type: mixed hyperlipidemia Qualified Code(s): E78.2 - Mixed hyperlipidemia (10) Hypertension Code(s): I10 - ESSENTIAL (PRIMARY) HYPERTENSION Qualifiers: Hypertension type: essential hypertension Qualified Code(s): I10 - Essential (primary) hypertension (11) Paroxysmal atrial fibrillation with rapid ventricular response Code(s): I48.0 - PAROXYSMAL ATRIAL FIBRILLATION (12) Syncope, near Code(s): R55 - SYNCOPE AND COLLAPSE Assessment/Plan 02/02/2019 Chest CTA: No PE, increased bilateral pleural effusions R>L c/w pulm vascular congestion 02/01/2019 Lexiscan Myoview: No ischemia, LVEF 48% 02/02/2019 Echo: Mild cLVH normal LV and RV size and fxn, mild LAE, mild , tr TR RVSP 23 mmHg, pleural effusion 12/08/2018 Echo: cLVH with normal LVEF 65-70%, mild LAE 4.6 cm, mild CHILO, normal RV size and fxn, mild MR, mild-mod TR RVSP 31 mmHg 1. Weakness, fatigue, near syncope due to hypovolemic hypotension resolving 2. Chronic anemia with history of diverticulosis and gastritis 3. Acute on chronic diastolic heart failure and bilateral pleural effusions R>L 4. Paroxysmal AF with RVR 5. CAD s/p CABG, PCI, angina 6. Type 2 DM 7. Hyperlipidemia 8. Acute on CKD pre-renal improving 9. HTN 10. RESTREPO with cirrhosis, cholelithiasis 11. 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 Abnormal TSH, ? sick euthyroid vs amio effects PLAN: 1. Resume diuresis with monitoring diuretic response, renal recovery and electrolytes 2. Resume renal-dosed Xarelto 15 qd w/o ASA 81 qd given stable CAD 3. Increase Toprol XL 100 mg BID, Losartan 25 mg QD, Imdur 30 qd 4. Continue Ranexa 500 bid, amio 200 qd, Lipitor 80 qd, Vascepa 2 bid 5. Bronchodilator, O2 as needed 6. CT with contrast when renal function permits to assess status of mesenteric mass and exclude other occult neoplasm ? hepatoma 7. Follow up with Dr. Sage upon discharge
[2019-03-06] MEDS ORDERED: PT OWN MED DRAWER 7, Y5N ONE ×2 (10:11→21:56)
[2019-03-06] MEDS: AMIODARONE HCL 200 MG TABLET (FP) PO SCH (10:14)
[2019-03-06] MEDS: ISOSORBIDE MONONITRATE 30 MG TAB.SR.24H (FP) PO SCH (10:14)
[2019-03-06] MEDS: DOCUSATE SODIUM 100 MG CAPSULE (FP) PO SCH ×2 (10:14→22:04)
[2019-03-06] MEDS: CYANOCOBALAMIN 1,000 MCG TABLET (FP) PO SCH (10:14)
[2019-03-06] MEDS: RANOLAZINE E.R. 500 MG TABLET (FP) PO SCH ×2 (10:14→22:04)
[2019-03-06] MEDS: FOLIC ACID 1 MG TABLET (FP) PO SCH (10:14)
[2019-03-06] MEDS: VITAMIN E 400 INTERNATIONAL-UNITS CAPSULE (FP) PO SCH (10:14)
[2019-03-06] MEDS: TIOTROPIUM BROMIDE 2.5 MCG (SPIRIVA) RESPIMAT INHALER IH SCH (10:15)
[2019-03-06] MEDS: MOMETASONE FUROATE 220 MCG/IH INHALER IH SCH ×2 (10:15→22:05)
[2019-03-06] MEDS: POLYETHYLENE GLYCOL 3350 119 GM BTL PO SCH ×2 (10:23→22:05)
[2019-03-06] MEDS: FUROSEMIDE 40 MG/4 ML INJECTABLE VIAL IVPUSH SCH (10:24)
--- NOTE | 2019-03-06 11:54 | PN ---
Progress Note (short form) - Note Progress Note: PULMONARY CONSULTATION DICTATED 03/06/19 IMP DYSPNEA ACUTE ON CHRONIC CHF BILATERAL PLEURAL EFFUSIONS SECONDARY TO CHF NEAR SYNCOPE PULMONARY NODULES STABLE ASHD A/P CABG AFIB DM ANEMIA ACUTE ON CHRONIC KIDNEY DISEASE CIRRHOSIS SECONDARY TO RESTREPO MESENTERIC MASS PLAN DIURETICS O2 THORACENTESIS DAILY WTS RATE CONTROL PER CARDIOLOGY STRICT I+OS MONITOR LYTES,RENAL FUNCTION F/U CHEST-RAYS DR JEAN BAPTISTE Problem List - Problems (1) Abnormal TSH Code(s): R79.89 - OTHER SPECIFIED ABNORMAL FINDINGS OF BLOOD CHEMISTRY (2) Anemia Code(s): D64.9 - ANEMIA, UNSPECIFIED Qualifiers: Anemia type: unspecified type Qualified Code(s): D64.9 - Anemia, unspecified (3) CKD (chronic kidney disease) Code(s): N18.9 - CHRONIC KIDNEY DISEASE, UNSPECIFIED (4) Cirrhosis of liver not due to alcohol Code(s): K74.60 - UNSPECIFIED CIRRHOSIS OF LIVER (5) Hypotension Code(s): I95.9 - HYPOTENSION, UNSPECIFIED Qualifiers: Hypotension type: hypotension due to hypovolemia Qualified Code(s): I95.89 - Other hypotension; E86.1 - Hypovolemia (6) Mesenteric mass Code(s): K63.89 - OTHER SPECIFIED DISEASES OF INTESTINE (7) Erimz-gp-csxhnkg kidney injury Code(s): N17.9 - ACUTE KIDNEY FAILURE, UNSPECIFIED; N18.9 - CHRONIC KIDNEY DISEASE, UNSPECIFIED Qualifiers: Chronic kidney disease stage: stage 2 (mild) (8) CHF (congestive heart failure) Code(s): I50.9 - HEART FAILURE, UNSPECIFIED Qualifiers: Heart failure type: diastolic Heart failure chronicity: chronic Qualified Code(s): I50.32 - Chronic diastolic (congestive) heart failure (9) Diabetes Code(s): E11.9 - TYPE 2 DIABETES MELLITUS WITHOUT COMPLICATIONS Qualifiers: Diabetes mellitus type: type 2 Diabetes mellitus lobsterman insulin use: without lobsterman use (10) Hx of CABG Code(s): Z95.1 - PRESENCE OF AORTOCORONARY BYPASS GRAFT (11) Hyperlipidemia Code(s): E78.5 - HYPERLIPIDEMIA, UNSPECIFIED Qualifiers: Hyperlipidemia type: mixed hyperlipidemia Qualified Code(s): E78.2 - Mixed hyperlipidemia (12) Hypertension Code(s): I10 - ESSENTIAL (PRIMARY) HYPERTENSION Qualifiers: Hypertension type: essential hypertension Qualified Code(s): I10 - Essential (primary) hypertension (13) Pleural effusion Code(s): J90 - PLEURAL EFFUSION, NOT ELSEWHERE CLASSIFIED (14) Shortness of breath Code(s): R06.02 - SHORTNESS OF BREATH (15) Syncope, near Code(s): R55 - SYNCOPE AND COLLAPSE
[2019-03-06] MEDS ORDERED: FUROSEMIDE 40 MG/4 ML INJECTABLE VIAL IVPUSH ONE (14:00)
--- NOTE | 2019-03-06 16:15 | RAPID ---
Physical Examination Vital Signs: Vital Signs Temperature 97.7 F 03/06/19 12:02 Pulse Rate 117 H 03/06/19 14:07 Respiratory Rate 19 03/06/19 14:07 Blood Pressure 117/69 03/06/19 14:07 O2 Sat by Pulse Oximetry (%) 97 03/06/19 09:00 Labs: CBC, BMP 03/06/19 05:20 03/06/19 05:20
--- NOTE | 2019-03-06 16:17 | FALL ---
Fall Exam - Event Witnessed fall: Yes Location of Fall: Bathroom Fall from: standing with nurse - Pre-Fall Mental Status: Alert, Lethargic Current Medications: Current Medications Generic Name Dose Route Start Last Admin Trade Name Ken PRN Reason Stop Dose Admin Acetaminophen 650 mg 03/03/19 14:52 Tylenol - PO Q4H PRN FEVER Albuterol/Ipratropium 1 amp 03/05/19 14:00 03/06/19 08:16 Duoneb - NEB 1 amp RTID JENNY Administration Amiodarone HCl 200 mg 03/04/19 10:00 03/06/19 10:14 Cordarone - PO 200 mg DAILY JENNY Administration Atorvastatin Calcium 80 mg 03/03/19 22:00 03/05/19 22:14 Lipitor - PO 80 mg HS JENNY Administration Cyanocobalamin 1,000 mcg 03/04/19 10:00 03/06/19 10:14 Vitamin B12 - PO 1,000 mcg DAILY JENNY Administration Docusate Sodium 100 mg 03/04/19 22:00 03/06/19 10:14 Colace - PO 100 mg BID JENNY Administration Folic Acid 1 mg 03/04/19 10:00 03/06/19 10:14 Folic Acid - PO 1 mg DAILY JENNY Administration Furosemide 40 mg 03/06/19 10:30 03/06/19 10:24 Lasix Injection - IVPUSH 40 mg DAILY JENNY Administration Insulin Aspart 1 vial 03/03/19 16:30 03/06/19 11:54 Novolog Vial Sliding Scale - SQ 2 unit ACHS JENNY Administration Protocol Isosorbide Mononitrate 30 mg 03/04/19 10:00 03/06/19 10:14 Imdur - PO 30 mg DAILY JENNY Administration Metoprolol Succinate 100 mg 03/06/19 22:00 Toprol Xl - PO BID JENNY Mometasone Furoate 1 puff 03/03/19 22:00 03/06/19 10:15 Asmanex 220mcg - IH 1 puff BID JENNY Administration Polyethylene Glycol 17 gm 03/03/19 22:00 03/06/19 10:23 Miralax (For Daily Use) - PO 17 gm BID JENNY Administration Ranolazine 500 mg 03/03/19 22:00 03/06/19 10:14 Ranexa - PO 500 mg BID JENNY Administration Rivaroxaban 15 mg 03/06/19 18:00 Xarelto PO DAILY@1800 JENNY Tiotropium [place] 2 puff 03/04/19 10:00 03/06/19 10:15 Spiriva Respimat IH 2 puff DAILY JENNY Administration Vitamin E 400 unit 03/04/19 10:00 03/06/19 10:14 Vitamin E - PO 400 unit DAILY JENNY Administration - Post-Fall Patient Outcome: No Injury Exam Findings: chronic right knee swelling Vital Signs: Vital Signs Temperature 97.7 F 03/06/19 12:02 Pulse Rate 117 H 03/06/19 14:07 Respiratory Rate 03/06/19 14:07 Blood Pressure 117/69 03/06/19 14:07 O2 Sat by Pulse Oximetry (%) 97 03/06/19 09:00 LOC Post-Fall: Awake, Alert, Oriented Identify factors for HIGH RISK for Head Injury: Pt on anticoagulant
[2019-03-06] MEDS ORDERED: RIVAROXABAN 20 MG TABLET PO SCH (18:00)
[2019-03-06] MEDS: ATORVASTATIN CA 80 MG TABLET (FP) PO SCH (22:04)
[2019-03-07] MEDS: INSULIN SLIDING SCALE (NOVOLOG) 1 VIAL SQ SCH ×4 (06:02→21:21)
[2019-03-07 06:04] LABS: BASO % 0.4 % (0-2.0); EOS % 3.2 % (0-4.5); HEMOGLOBIN 9.6 GM/dL (10.7-15.3); LYMPH % 7.7 % (8-40); MCH 31.4 pg (25.7-33.7); MCHC 34.2 g/dl (32.0-36.0); MEAN CELL VOLUME 91.8 fl (80-96); MEAN PLT VOLUME 8.1 fl (7.5-11.1); MONO % 7.1 % (3.8-10.2); NEUT % 81.6 % (42.8-82.8); PLATELET COUNT 256 K/MM3 (134-434); RBC 3.05 M/mm3 (3.60-5.2); RDW 16.5 % (11.6-15.6); WHITE BLOOD COUNT 5.6 K/mm3 (4.0-10.0)
[2019-03-07 06:13] LABS: BLOOD UREA NITROGEN 29.4 mg/dL (7-18); CALCIUM 9.8 mg/dL (8.5-10.1); CREATININE 1.4 mg/dL (0.55-1.3); MAGNESIUM 2.3 mg/dL (1.8-2.4); PHOSPHOROUS 3.4 mg/dL (2.5-4.9); POTASSIUM 3.8 mmol/L (3.5-5.1)
[2019-03-07] MEDS: ALBUTEROL SO4 2.5/IPRATROPIUM 0.5 INH SOL 3 ML VIAL.NEB. NEB SCH ×3 (08:27→20:55)
[2019-03-07] MEDS ORDERED: PT OWN MED DRAWER 7, Y5N ONE ×2 (08:59→17:28)
[2019-03-07] MEDS: FUROSEMIDE 40 MG/4 ML INJECTABLE VIAL IVPUSH SCH (09:11)
[2019-03-07] MEDS: RANOLAZINE E.R. 500 MG TABLET (FP) PO SCH ×2 (09:11→21:20)
[2019-03-07] MEDS: CYANOCOBALAMIN 1,000 MCG TABLET (FP) PO SCH (09:12)
[2019-03-07] MEDS: ISOSORBIDE MONONITRATE 30 MG TAB.SR.24H (FP) PO SCH (09:12)
[2019-03-07] MEDS: DOCUSATE SODIUM 100 MG CAPSULE (FP) PO SCH ×2 (09:12→21:20)
[2019-03-07] MEDS: POLYETHYLENE GLYCOL 3350 119 GM BTL PO SCH ×2 (09:12→21:51)
[2019-03-07] MEDS: FOLIC ACID 1 MG TABLET (FP) PO SCH (09:12)
[2019-03-07] MEDS: AMIODARONE HCL 200 MG TABLET (FP) PO SCH (09:12)
[2019-03-07] MEDS: TIOTROPIUM BROMIDE 2.5 MCG (SPIRIVA) RESPIMAT INHALER IH SCH (09:17)
[2019-03-07] MEDS: MOMETASONE FUROATE 220 MCG/IH INHALER IH SCH ×2 (09:17→21:23)
--- NOTE | 2019-03-07 11:03 | PN ---
Progress Note, Physician Chief Complaint: Events noted Post fall but without any visible injuries History of Present Illness: Patient was seen and examined. Awake and alert. Chart was reviewed Denies chest pain, SOB or palpitations - Current Medication List Current Medications: Active Medications Acetaminophen (Tylenol -) 650 mg PO Q4H PRN PRN Reason: FEVER Albuterol/Ipratropium (Duoneb -) 1 amp NEB RTID [facility] Last Admin: 03/07/19 08:27 Dose: 1 amp Amiodarone HCl (Cordarone -) 200 mg PO DAILY [facility] Last Admin: 03/07/19 09:12 Dose: 200 mg Atorvastatin Calcium (Lipitor -) 80 mg PO HS [facility] Last Admin: 03/06/19 22:04 Dose: 80 mg Cyanocobalamin (Vitamin B12 -) 1,000 mcg PO DAILY [facility] Last Admin: 03/07/19 09:12 Dose: 1,000 mcg Docusate Sodium (Colace -) 100 mg PO BID [facility] Last Admin: 03/07/19 09:12 Dose: 100 mg Folic Acid (Folic Acid -) 1 mg PO DAILY [facility] Last Admin: 03/07/19 09:12 Dose: 1 mg Furosemide (Lasix Injection -) 40 mg IVPUSH DAILY [facility] Last Admin: 03/07/19 09:11 Dose: 40 mg Insulin Aspart (Novolog Vial Sliding Scale -) 1 vial SQ [facility]; Protocol Last Admin: 03/07/19 06:02 Dose: Not Given Isosorbide Mononitrate (Imdur -) 30 mg PO DAILY [facility] Last Admin: 03/07/19 09:12 Dose: 30 mg Metoprolol Succinate (Toprol Xl -) 100 mg PO BID [facility] Last Admin: 03/07/19 09:11 Dose: 100 mg Mometasone Furoate (Asmanex 220mcg -) 1 puff IH BID [facility] Last Admin: 03/07/19 09:17 Dose: 1 puff Polyethylene Glycol (Miralax (For Daily Use) -) 17 gm PO BID [facility] Last Admin: 03/07/19 09:12 Dose: 17 gm Ranolazine (Ranexa -) 500 mg PO BID [facility] Last Admin: 03/07/19 09:11 Dose: 500 mg Rivaroxaban (Xarelto) 15 mg PO DAILY@1800 [facility] Tiotropium [place] (Spiriva Respimat) 2 puff IH DAILY [facility] Last Admin: 03/07/19 09:17 Dose: 2 puff Vitamin E (Vitamin E -) 400 unit PO DAILY [facility] Last Admin: 03/06/19 10:14 Dose: 400 unit - Objective Vital Signs: Vital Signs Temperature 98.1 F 03/07/19 09:25 Pulse Rate 101 H 03/07/19 09:25 Respiratory Rate 18 03/07/19 09:25 Blood Pressure 114/68 03/07/19 09:25 O2 Sat by Pulse Oximetry (%) 100 03/06/19 20:09 Eyes: Yes: PERRL HENT: Yes: Atraumatic Neck: Yes: Supple Cardiovascular: Yes: Pulse Irregular, S1, S2 Respiratory: Yes: Diminished Gastrointestinal: Yes: Normal Bowel Sounds, Soft. No: Tenderness Edema: No Additional Findings/Remarks: - Review of Systems Constitutional: reports: Weakness. denies: Chills, Fever Cardiovascular: denies: Palpitations, Shortness of Breath. denies: Chest Pain Respiratory: denies: Cough, Hemoptysis, Orthopnea, PND Gastrointestinal: denies: Abdominal Pain, Constipation, Diarrhea, Melena, Nausea , Rectal Bleeding, Vomiting Genitourinary: denies: Dysuria Neurological: denies: Dizziness, Headache, Seizure, Syncope Labs: CBC, BMP 03/07/19 05:05 03/07/19 05:05 Problem List - Problems (1) Abnormal TSH Code(s): R79.89 - OTHER SPECIFIED ABNORMAL FINDINGS OF BLOOD CHEMISTRY (2) Anemia Code(s): D64.9 - ANEMIA, UNSPECIFIED Qualifiers: Anemia type: unspecified type Qualified Code(s): D64.9 - Anemia, unspecified (3) CKD (chronic kidney disease) Code(s): N18.9 - CHRONIC KIDNEY DISEASE, UNSPECIFIED (4) Chronic atrial fibrillation Code(s): I48.2 - CHRONIC ATRIAL FIBRILLATION (5) Cirrhosis of liver not due to alcohol Code(s): K74.60 - UNSPECIFIED CIRRHOSIS OF LIVER (6) Mesenteric mass Code(s): K63.89 - OTHER SPECIFIED DISEASES OF INTESTINE (7) Vxujm-je-ywhjfzo kidney injury Code(s): N17.9 - ACUTE KIDNEY FAILURE, UNSPECIFIED; N18.9 - CHRONIC KIDNEY DISEASE, UNSPECIFIED Qualifiers: Chronic kidney disease stage: stage 2 (mild) (8) CHF (congestive heart failure) Code(s): I50.9 - HEART FAILURE, UNSPECIFIED Qualifiers: Heart failure type: diastolic Heart failure chronicity: chronic Qualified Code(s): I50.32 - Chronic diastolic (congestive) heart failure (9) Diabetes Code(s): E11.9 - TYPE 2 DIABETES MELLITUS WITHOUT COMPLICATIONS Qualifiers: Diabetes mellitus type: type 2 Diabetes mellitus moth exterminator insulin use: without alf use (10) Hx of CABG Code(s): Z95.1 - PRESENCE OF AORTOCORONARY BYPASS GRAFT (11) Hyperlipidemia Code(s): E78.5 - HYPERLIPIDEMIA, UNSPECIFIED Qualifiers: Hyperlipidemia type: pure hypercholesterolemia Qualified Code(s): E78.00 - Pure hypercholesterolemia, unspecified; E78.0 - Pure hypercholesterolemia (12) Hypertension Code(s): I10 - ESSENTIAL (PRIMARY) HYPERTENSION Qualifiers: Hypertension type: essential hypertension Qualified Code(s): I10 - Essential (primary) hypertension (13) Paroxysmal atrial fibrillation with rapid ventricular response Code(s): I48.0 - PAROXYSMAL ATRIAL FIBRILLATION Assessment/Plan 1. Weakness, fatigue, near syncope due to hypovolemic hypotension 2. Chronic anemia with history of diverticulosis and gastritis 3. Acute on chronic diastolic heart failure and bilateral pleural effusions R>L 4. Paroxysmal AF with RVR 5. CAD s/p CABG, PCI, angina 6. Type 2 DM 7. Hyperlipidemia 8. Acute on CKD 9. HTN 10. RESTREPO with cirrhosis and cholelithiasis 11. 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 Abnormal TSH, ? sick euthyroid vs Amiodarone effects PLAN: 1. Continue diuresis (IV Lasix) with monitoring renal recovery and electrolytes 2. Continue Xarelto 15 mg QD w/o ASA 3. Continue Toprol XL 100 mg BID, Losartan 25 mg QD and Imdur 30 mg QD 4. Continue Ranexa 500 mg BID, Amiodarone 200 mg QD, Lipitor 80 mg QD and Vascepa 2 g BID 5. Bronchodilator and O2 as needed 6. CT with contrast when renal function permits to assess status of mesenteric mass and exclude other occult neoplasm Further plans are to follow Jose Raul Brannon MD
--- NOTE | 2019-03-07 12:10 | PN ---
Progress Note (short form) - Note Progress Note: Hospitalist to document today. 1500 cc himanshu colored fluid removed today in the Sonogram Dept.. Ominous appearance of the fluid.. Patient dizzy with lower BP. CXR post procedure noted.
[2019-03-07] MEDS: VITAMIN E 400 INTERNATIONAL-UNITS CAPSULE (FP) PO SCH (12:16)
--- NOTE | 2019-03-07 13:35 | PN ---
Progress Note, Physician History of Present Illness: pulmonary alert,comfortable,breathig improved s/p thoracentesis tolerated procedure well w /o complications - Current Medication List Current Medications: Active Medications Acetaminophen (Tylenol -) 650 mg PO Q4H PRN PRN Reason: FEVER Albuterol/Ipratropium (Duoneb -) 1 amp NEB RTID [facility] Last Admin: 03/07/19 08:27 Dose: 1 amp Amiodarone HCl (Cordarone -) 200 mg PO DAILY [facility] Last Admin: 03/07/19 09:12 Dose: 200 mg Atorvastatin Calcium (Lipitor -) 80 mg PO HS [facility] Last Admin: 03/06/19 22:04 Dose: 80 mg Cyanocobalamin (Vitamin B12 -) 1,000 mcg PO DAILY [facility] Last Admin: 03/07/19 09:12 Dose: 1,000 mcg Docusate Sodium (Colace -) 100 mg PO BID [facility] Last Admin: 03/07/19 09:12 Dose: 100 mg Folic Acid (Folic Acid -) 1 mg PO DAILY [facility] Last Admin: 03/07/19 09:12 Dose: 1 mg Furosemide (Lasix Injection -) 40 mg IVPUSH DAILY [facility] Last Admin: 03/07/19 09:11 Dose: 40 mg Insulin Aspart (Novolog Vial Sliding Scale -) 1 vial SQ [facility]; Protocol Last Admin: 03/07/19 12:15 Dose: 2 units Isosorbide Mononitrate (Imdur -) 30 mg PO DAILY [facility] Last Admin: 03/07/19 09:12 Dose: 30 mg Metoprolol Succinate (Toprol Xl -) 100 mg PO BID [facility] Last Admin: 03/07/19 09:11 Dose: 100 mg Mometasone Furoate (Asmanex 220mcg -) 1 puff IH BID [facility] Last Admin: 03/07/19 09:17 Dose: 1 puff Polyethylene Glycol (Miralax (For Daily Use) -) 17 gm PO BID [facility] Last Admin: 03/07/19 09:12 Dose: 17 gm Ranolazine (Ranexa -) 500 mg PO BID [facility] Last Admin: 03/07/19 09:11 Dose: 500 mg Rivaroxaban (Xarelto) 15 mg PO DAILY@1800 [facility] Tiotropium [place] (Spiriva Respimat) 2 puff IH DAILY [facility] Last Admin: 03/07/19 09:17 Dose: 2 puff Vitamin E (Vitamin E -) 400 unit PO DAILY [facility] Last Admin: 03/07/19 12:16 Dose: 400 unit - Objective Vital Signs: Vital Signs Temperature 98.1 F 03/07/19 09:25 Pulse Rate 103 H 03/07/19 11:25 Respiratory Rate 16 03/07/19 11:25 Blood Pressure 93/62 03/07/19 11:25 O2 Sat by Pulse Oximetry (%) 100 03/07/19 11:25 Constitutional: Yes: Well Nourished, Calm Eyes: Yes: WNL HENT: Yes: WNL Neck: Yes: WNL Cardiovascular: Yes: Pulse Irregular, S1, S2 Respiratory: Yes: Rales (BIBASILAR RALES) Gastrointestinal: Yes: Normal Bowel Sounds, Soft Extremities: Yes: WNL Edema: No Labs: CBC, BMP 03/07/19 05:05 03/07/19 05:05 INR, PTT INR 1.18 (0.83-1.09) H 03/06/19 05:20 Laboratory Tests 03/05/19 12:24 ABG pH 7.38 ABG pCO2 at Pt Temp 45.2 H ABG pO2 at Pt Temp 123 H ABG HCO3 25.9 ABG O2 Sat (Measured) 97.0 Oxygen Flow Rate 2l Problem List - Problems (1) Abnormal TSH Code(s): R79.89 - OTHER SPECIFIED ABNORMAL FINDINGS OF BLOOD CHEMISTRY (2) Anemia Code(s): D64.9 - ANEMIA, UNSPECIFIED Qualifiers: Anemia type: unspecified type Qualified Code(s): D64.9 - Anemia, unspecified (3) CKD (chronic kidney disease) Code(s): N18.9 - CHRONIC KIDNEY DISEASE, UNSPECIFIED (4) Cirrhosis of liver not due to alcohol Code(s): K74.60 - UNSPECIFIED CIRRHOSIS OF LIVER (5) Hypotension Code(s): I95.9 - HYPOTENSION, UNSPECIFIED Qualifiers: Hypotension type: hypotension due to hypovolemia Qualified Code(s): I95.89 - Other hypotension; E86.1 - Hypovolemia (6) Mesenteric mass Code(s): K63.89 - OTHER SPECIFIED DISEASES OF INTESTINE (7) Peohf-bp-bpucvqr kidney injury Code(s): N17.9 - ACUTE KIDNEY FAILURE, UNSPECIFIED; N18.9 - CHRONIC KIDNEY DISEASE, UNSPECIFIED Qualifiers: Chronic kidney disease stage: stage 2 (mild) (8) CHF (congestive heart failure) Code(s): I50.9 - HEART FAILURE, UNSPECIFIED Qualifiers: Heart failure type: diastolic Heart failure chronicity: chronic Qualified Code(s): I50.32 - Chronic diastolic (congestive) heart failure (9) Diabetes Code(s): E11.9 - TYPE 2 DIABETES MELLITUS WITHOUT COMPLICATIONS Qualifiers: Diabetes mellitus type: type 2 Diabetes mellitus fci insulin use: without fci use (10) Hx of CABG Code(s): Z95.1 - PRESENCE OF AORTOCORONARY BYPASS GRAFT (11) Hyperlipidemia Code(s): E78.5 - HYPERLIPIDEMIA, UNSPECIFIED Qualifiers: Hyperlipidemia type: pure hypercholesterolemia Qualified Code(s): E78.00 - Pure hypercholesterolemia, unspecified; E78.0 - Pure hypercholesterolemia (12) Hypertension Code(s): I10 - ESSENTIAL (PRIMARY) HYPERTENSION Qualifiers: Hypertension type: essential hypertension Qualified Code(s): I10 - Essential (primary) hypertension (13) Pleural effusion Code(s): J90 - PLEURAL EFFUSION, NOT ELSEWHERE CLASSIFIED (14) Shortness of breath Code(s): R06.02 - SHORTNESS OF BREATH (15) Syncope, near Code(s): R55 - SYNCOPE AND COLLAPSE Assessment/Plan IMP DYSPNEA IPROVING ACUTE ON CHRONIC CHF BILATERAL PLEURAL EFFUSIONS SECONDARY TO CHF NEAR SYNCOPE PULMONARY NODULES STABLE ASHD A/P CABG AFIB DM ANEMIA ACUTE ON CHRONIC KIDNEY DISEASE CIRRHOSIS SECONDARY TO RESTREPO MESENTERIC MASS PLAN DIURETICS O2 CHECK RESULTS OF PLEURAL FLUID CHEMISTRIES,CYTOLOGY DAILY WTS RATE CONTROL PER CARDIOLOGY STRICT I+OS MONITOR LYTES,RENAL FUNCTION F/U CHEST-RAYS DR JEAN BAPTISTE Problem List - Problems (1) Abnormal TSH Code(s): R79.89 - OTHER SPECIFIED ABNORMAL FINDINGS OF BLOOD CHEMISTRY (2) Anemia Code(s): D64.9 - ANEMIA, UNSPECIFIED Qualifiers: Anemia type: unspecified type Qualified Code(s): D64.9 - Anemia, unspecified (3) CKD (chronic kidney disease) Code(s): N18.9 - CHRONIC KIDNEY DISEASE, UNSPECIFIED (4) Cirrhosis of liver not due to alcohol Code(s): K74.60 - UNSPECIFIED CIRRHOSIS OF LIVER (5) Hypotension Code(s): I95.9 - HYPOTENSION, UNSPECIFIED Qualifiers: Hypotension type: hypotension due to hypovolemia Qualified Code(s): I95.89 - Other hypotension; E86.1 - Hypovolemia (6) Mesenteric mass Code(s): K63.89 - OTHER SPECIFIED DISEASES OF INTESTINE (7) Bbhyy-rs-zcomvot kidney injury Code(s): N17.9 - ACUTE KIDNEY FAILURE, UNSPECIFIED; N18.9 - CHRONIC KIDNEY DISEASE, UNSPECIFIED Qualifiers: Chronic kidney disease stage: stage 2 (mild) (8) CHF (congestive heart failure) Code(s): I50.9 - HEART FAILURE, UNSPECIFIED Qualifiers: Heart failure type: diastolic Heart failure chronicity: chronic Qualified Code(s): I50.32 - Chronic diastolic (congestive) heart failure (9) Diabetes Code(s): E11.9 - TYPE 2 DIABETES MELLITUS WITHOUT COMPLICATIONS Qualifiers: Diabetes mellitus type: type 2 Diabetes mellitus fci insulin use: without fci use (10) Hx of CABG Code(s): Z95.1 - PRESENCE OF AORTOCORONARY BYPASS GRAFT (11) Hyperlipidemia Code(s): E78.5 - HYPERLIPIDEMIA, UNSPECIFIED Qualifiers: Hyperlipidemia type: mixed hyperlipidemia Qualified Code(s): E78.2 - Mixed hyperlipidemia (12) Hypertension Code(s): I10 - ESSENTIAL (PRIMARY) HYPERTENSION Qualifiers: Hypertension type: essential hypertension Qualified Code(s): I10 - Essential (primary) hypertension (13) Pleural effusion Code(s): J90 - PLEURAL EFFUSION, NOT ELSEWHERE CLASSIFIED (14) Shortness of breath Code(s): R06.02 - SHORTNESS OF BREATH (15) Syncope, near Code(s): R55 - SYNCOPE AND COLLAPSE
[2019-03-07 14:59] LABS: BF WBC & OTHER NUCLEATED CELLS 1244 /mm3
[2019-03-07] MEDS ORDERED: dilTIAZem HCL 50 MG/10 ML - 10 ML VIAL IVPUSH PRN (15:27)
[2019-03-07 15:48] LABS: BODY FLUID MONOCYTE 5 %; BODYL FLD EOSINOPHIL 1 %
--- NOTE | 2019-03-07 16:26 | PN ---
Progress Note, Physician Chief Complaint: Ms Alexis says she is doing ok, she says she thinks that she is feeling ok. Denies cp, sob, or n/v currently. - Current Medication List Current Medications: Active Medications Acetaminophen (Tylenol -) 650 mg PO Q4H PRN PRN Reason: FEVER Albuterol/Ipratropium (Duoneb -) 1 amp NEB RTID [facility] Last Admin: 03/07/19 08:27 Dose: 1 amp Amiodarone HCl (Cordarone -) 200 mg PO DAILY [facility] Last Admin: 03/07/19 09:12 Dose: 200 mg Atorvastatin Calcium (Lipitor -) 80 mg PO HS [facility] Last Admin: 03/06/19 22:04 Dose: 80 mg Cyanocobalamin (Vitamin B12 -) 1,000 mcg PO DAILY [facility] Last Admin: 03/07/19 09:12 Dose: 1,000 mcg Diltiazem HCl (Cardizem Injection -) 10 mg IVPUSH Q4H PRN PRN Reason: TACHYCARDIA Last Admin: 03/07/19 15:49 Dose: 10 mg Docusate Sodium (Colace -) 100 mg PO BID [facility] Last Admin: 03/07/19 09:12 Dose: 100 mg Folic Acid (Folic Acid -) 1 mg PO DAILY [facility] Last Admin: 03/07/19 09:12 Dose: 1 mg Furosemide (Lasix Injection -) 40 mg IVPUSH DAILY [facility] Last Admin: 03/07/19 09:11 Dose: 40 mg Insulin Aspart (Novolog Vial Sliding Scale -) 1 vial SQ [facility]S [facility]; Protocol Last Admin: 03/07/19 12:15 Dose: 2 units Isosorbide Mononitrate (Imdur -) 30 mg PO DAILY [facility] Last Admin: 03/07/19 09:12 Dose: 30 mg Metoprolol Succinate (Toprol Xl -) 100 mg PO BID [facility] Last Admin: 03/07/19 09:11 Dose: 100 mg Mometasone Furoate (Asmanex 220mcg -) 1 puff IH BID [facility] Last Admin: 03/07/19 09:17 Dose: 1 puff Polyethylene Glycol (Miralax (For Daily Use) -) 17 gm PO BID [facility] Last Admin: 03/07/19 09:12 Dose: 17 gm Ranolazine (Ranexa -) 500 mg PO BID [facility] Last Admin: 03/07/19 09:11 Dose: 500 mg Rivaroxaban (Xarelto) 15 mg PO DAILY@1800 [facility] Tiotropium [place] (Spiriva Respimat) 2 puff IH DAILY [facility] Last Admin: 03/07/19 09:17 Dose: 2 puff Vitamin E (Vitamin E -) 400 unit PO DAILY [facility] Last Admin: 03/07/19 12:16 Dose: 400 unit - Objective Vital Signs: Vital Signs Temperature 36.7 C 03/07/19 15:52 Pulse Rate 128 H 03/07/19 15:52 Respiratory Rate 18 03/07/19 15:52 Blood Pressure 102/64 03/07/19 15:52 O2 Sat by Pulse Oximetry (%) 100 03/07/19 11:25 Constitutional: Yes: Well Nourished, No Distress Cardiovascular: Yes: Tachycardia, Pulse Irregular. No: Gallop, Murmur, Rub Respiratory: Yes: Regular, On Nasal O2, Rhonchi. No: CTA Bilaterally, Rales, Wheezes Gastrointestinal: Yes: Normal Bowel Sounds, Soft. No: Distention, Tenderness Extremities: Yes: WNL Edema: No Labs: CBC, BMP 03/07/19 05:05 03/07/19 05:05 INR, PTT INR 1.18 (0.83-1.09) H 03/06/19 05:20 Problem List - Problems (1) Anemia Code(s): D64.9 - ANEMIA, UNSPECIFIED Qualifiers: Anemia type: unspecified type Qualified Code(s): D64.9 - Anemia, unspecified (2) Syncope, near Code(s): R55 - SYNCOPE AND COLLAPSE (3) Hypotension Code(s): I95.9 - HYPOTENSION, UNSPECIFIED Qualifiers: Hypotension type: hypotension due to hypovolemia Qualified Code(s): I95.89 - Other hypotension; E86.1 - Hypovolemia (4) CKD (chronic kidney disease) Code(s): N18.9 - CHRONIC KIDNEY DISEASE, UNSPECIFIED (5) Chronic atrial fibrillation Code(s): I48.2 - CHRONIC ATRIAL FIBRILLATION (6) Abnormal TSH Code(s): R79.89 - OTHER SPECIFIED ABNORMAL FINDINGS OF BLOOD CHEMISTRY (7) CHF (congestive heart failure) Code(s): I50.9 - HEART FAILURE, UNSPECIFIED Qualifiers: Heart failure type: diastolic Heart failure chronicity: chronic Qualified Code(s): I50.32 - Chronic diastolic (congestive) heart failure (8) Diabetes Code(s): E11.9 - TYPE 2 DIABETES MELLITUS WITHOUT COMPLICATIONS Qualifiers: Diabetes mellitus type: type 2 Diabetes mellitus terminal clerk insulin use: without terminal clerk use (9) Hx of CABG Code(s): Z95.1 - PRESENCE OF AORTOCORONARY BYPASS GRAFT (10) Hyperlipidemia Code(s): E78.5 - HYPERLIPIDEMIA, UNSPECIFIED Qualifiers: Hyperlipidemia type: pure hypercholesterolemia Qualified Code(s): E78.00 - Pure hypercholesterolemia, unspecified; E78.0 - Pure hypercholesterolemia (11) Coumadin toxicity Code(s): T45.511A - POISONING BY ANTICOAGULANTS, ACCIDENTAL, INIT Qualifiers: Encounter type: initial encounter Injury intent: accidental or unintentional Qualified Code(s): T45.511A - Poisoning by anticoagulants, accidental (unintentional), initial encounter (12) Pleural effusion Code(s): J90 - PLEURAL EFFUSION, NOT ELSEWHERE CLASSIFIED Assessment/Plan (1) Anemia Assessment/Plan: -stable -safe to restart xarelto today after thoracentesis Code(s): D64.9 - ANEMIA, UNSPECIFIED Qualifiers: Anemia type: unspecified type Qualified Code(s): D64.9 - Anemia, unspecified (2) Syncope, near Assessment/Plan: -stop IVF -given lasix Code(s): R55 - SYNCOPE AND COLLAPSE (3) Hypotension Assessment/Plan: -resolved Code(s): I95.9 - HYPOTENSION, UNSPECIFIED Qualifiers: Hypotension type: hypotension due to hypovolemia Qualified Code(s): I95.89 - Other hypotension; E86.1 - Hypovolemia (4) CKD (chronic kidney disease) Assessment/Plan: -stable Code(s): N18.9 - CHRONIC KIDNEY DISEASE, UNSPECIFIED (5) Chronic atrial fibrillation Assessment/Plan: -cardiology following -continue amiodarone and toprol xl -restart xarelto tonight Code(s): I48.2 - CHRONIC ATRIAL FIBRILLATION (6) Abnormal TSH Assessment/Plan: -suspect secondary to amiodarone -FT4 normal Code(s): R79.89 - OTHER SPECIFIED ABNORMAL FINDINGS OF BLOOD CHEMISTRY (7) CHF (congestive heart failure) Assessment/Plan: -slightly fluid overloaded -continue oral lasix Code(s): I50.9 - HEART FAILURE, UNSPECIFIED Qualifiers: Heart failure type: diastolic Heart failure chronicity: chronic Qualified Code(s): I50.32 - Chronic diastolic (congestive) heart failure (8) Diabetes Assessment/Plan: -diabetic diet -FSBS and SSI Code(s): E11.9 - TYPE 2 DIABETES MELLITUS WITHOUT COMPLICATIONS Qualifiers: Diabetes mellitus type: type 2 Diabetes mellitus terminal clerk insulin use: without terminal clerk use (9) Hx of CABG Assessment/Plan: -noted Code(s): Z95.1 - PRESENCE OF AORTOCORONARY BYPASS GRAFT (10) Hyperlipidemia Assessment/Plan: -continue home regimen Code(s): E78.5 - HYPERLIPIDEMIA, UNSPECIFIED Qualifiers: Hyperlipidemia type: mixed hyperlipidemia Qualified Code(s): E78.2 - Mixed hyperlipidemia (11) Coumadin toxicity Assessment/Plan: -resolved -continue to monitor Code(s): T45.511A - POISONING BY ANTICOAGULANTS, ACCIDENTAL, INIT Qualifiers: Encounter type: initial encounter Injury intent: accidental or unintentional Qualified Code(s): T45.511A - Poisoning by anticoagulants, accidental (unintentional), initial encounter (12) R pleural effusion -s/p thoracentesis -wine colored pleural fluid with significant RBCs -follow up fluid results
[2019-03-07] MEDS: RIVAROXABAN 15 MG TABLET PO SCH (18:30)
[2019-03-07] MEDS ORDERED: SODIUM CHLORIDE 500 ML IV STA (19:16)
--- NOTE | 2019-03-07 19:28 | RAPID ---
Physical Examination Vital Signs: Vital Signs Temperature 98.1 F 03/07/19 15:52 Pulse Rate 104 H 03/07/19 17:35 Respiratory Rate 18 03/07/19 17:35 Blood Pressure 101/62 03/07/19 17:35 O2 Sat by Pulse Oximetry (%) 100 03/07/19 11:25 Rapid Response was called to [address] [place] [address] at 7:23 pm. She was found to have low BP, which stabilized back to normal. Her BP tends to fluctuate every time she uses the bathroom. We evaluated her and currently she is stable. Vitals BP 116/71, HR 116, SO2 99 Physical exam was done, hearts sounds were normal, lung were clear to auscultation. Plan Discussed with PCP PCP ordered 500 ml of NS bolus Discussed with nursing to continue monitoring her and assist her in using the bathroom. Labs: CBC, BMP 03/07/19 05:05 03/07/19 05:05
--- NOTE | 2019-03-07 20:37 | PN.GI ---
GI Progress Note Subjective: GI Note: Breathing is much improved since the thoracentesis. Feels much better but was still dizzy when placed into a chair. Sonogram reveals no obvious liver hepatoma. Gallstones appear silent. Hb stable. No overt bleeding. - Objective Vital Signs: Vital Signs Temperature 97.7 F 03/07/19 18:00 Pulse Rate 113 H 03/07/19 19:20 Respiratory Rate 18 03/07/19 19:20 Blood Pressure 116/71 03/07/19 19:20 O2 Sat by Pulse Oximetry (%) 100 03/07/19 11:25 Laboratory Tests 03/03/19 03/04/19 03/05/19 12:30 06:10 06:35 Hgb 8.8 L 9.3 L Retic Count 2.92 H 03/07/19 05:05 Hgb 9.6 L Retic Count Laboratory Tests 03/04/19 03/07/19 06:10 05:05 MCV 91.8 Iron 71 TIBC 266 Iron Saturation 26 Unsaturated IBC 195 L Ferritin 117.8 Constitutional: Calm ...Auscultate: Yes: Normoactive Bowel Sounds ...Palpate: Yes: Soft, Other (nontender) Labs: CBC, BMP 03/07/19 05:05 03/07/19 05:05 INR, PTT INR 1.18 (0.83-1.09) H 03/06/19 05:20 Assessment/Plan Assessment: - Anemia stable in hospital without overt bleeding seen. 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 Shantell has exprrssed that she does not want to pursue this or unertake any more endoscopies electively. -- PPI empirically -- Miralax Problem List - Problems (1) Cirrhosis of liver not due to alcohol Code(s): K74.60 - UNSPECIFIED CIRRHOSIS OF LIVER (2) Anemia Code(s): D64.9 - ANEMIA, UNSPECIFIED Qualifiers: Anemia type: unspecified type Qualified Code(s): D64.9 - Anemia, unspecified (3) Hypotension Code(s): I95.9 - HYPOTENSION, UNSPECIFIED Qualifiers: Hypotension type: hypotension due to hypovolemia Qualified Code(s): I95.89 - Other hypotension; E86.1 - Hypovolemia (4) Weight loss Code(s): R63.4 - ABNORMAL WEIGHT LOSS (5) Anorexia Code(s): R63.0 - ANOREXIA (6) Mesenteric mass Code(s): K63.89 - OTHER SPECIFIED DISEASES OF INTESTINE (7) Colon adenomas Code(s): D12.6 - BENIGN NEOPLASM OF COLON, UNSPECIFIED (8) Diverticulosis Code(s): K57.90 - DVRTCLOS OF INTEST, PART UNSP, W/O PERF OR ABSCESS W/O BLEED (9) Portal hypertensive gastropathy Code(s): K76.6 - PORTAL HYPERTENSION; K31.89 - OTHER DISEASES OF STOMACH AND DUODENUM (10) Wyrbs-xx-wkkuuel kidney injury Code(s): N17.9 - ACUTE KIDNEY FAILURE, UNSPECIFIED; N18.9 - CHRONIC KIDNEY DISEASE, UNSPECIFIED Qualifiers: Chronic kidney disease stage: stage 2 (mild) (11) CHF (congestive heart failure) Code(s): I50.9 - HEART FAILURE, UNSPECIFIED Qualifiers: Heart failure type: diastolic Heart failure chronicity: chronic Qualified Code(s): I50.32 - Chronic diastolic (congestive) heart failure (12) Dehydration Code(s): E86.0 - DEHYDRATION (13) Diabetes Code(s): E11.9 - TYPE 2 DIABETES MELLITUS WITHOUT COMPLICATIONS Qualifiers: Diabetes mellitus type: type 2 Diabetes mellitus termite treater insulin use: without termite treater use (14) Hx of CABG Code(s): Z95.1 - PRESENCE OF AORTOCORONARY BYPASS GRAFT (15) Paroxysmal atrial fibrillation with rapid ventricular response Code(s): I48.0 - PAROXYSMAL ATRIAL FIBRILLATION (16) Syncope, near Code(s): R55 - SYNCOPE AND COLLAPSE
[2019-03-07] MEDS: ATORVASTATIN CA 80 MG TABLET (FP) PO SCH (21:20)
[2019-03-08 05:57] LABS: BASO % 0.3 % (0-2.0); EOS % 1.8 % (0-4.5); HEMATOCRIT 26.6 % (32.4-45.2); HEMOGLOBIN 9.1 GM/dL (10.7-15.3); LYMPH % 7.2 % (8-40); MCH 31.1 pg (25.7-33.7); MCHC 34.1 g/dl (32.0-36.0); MEAN CELL VOLUME 91.2 fl (80-96); MEAN PLT VOLUME 8.1 fl (7.5-11.1); NEUT % 84.7 % (42.8-82.8); PLATELET COUNT 271 K/MM3 (134-434); RBC 2.92 M/mm3 (3.60-5.2); RDW 16.5 % (11.6-15.6); WHITE BLOOD COUNT 6.6 K/mm3 (4.0-10.0)
[2019-03-08 06:11] LABS: BLOOD UREA NITROGEN 31.6 mg/dL (7-18); CALCIUM 9.1 mg/dL (8.5-10.1); CREATININE 1.3 mg/dL (0.55-1.3); MAGNESIUM 2.2 mg/dL (1.8-2.4); PHOSPHOROUS 3.2 mg/dL (2.5-4.9); POTASSIUM 3.6 mmol/L (3.5-5.1)
[2019-03-08] MEDS: INSULIN SLIDING SCALE (NOVOLOG) 1 VIAL SQ SCH ×4 (06:45→21:33)
[2019-03-08] MEDS: ALBUTEROL SO4 2.5/IPRATROPIUM 0.5 INH SOL 3 ML VIAL.NEB. NEB SCH ×3 (08:10→20:34)
--- NOTE | 2019-03-08 08:42 | PN ---
Progress Note (short form) - Note Progress Note: Hospitalist to document today. 1500cc wine colored fluid removed fro right lung yesterday. Recurrent presyncope; maybe taper or D/C Imdur would help. Constipated.
[2019-03-08] MEDS ORDERED: GLYCERIN 1 RECTAL SUPPOSITORY, ADULT RC ONE (09:00)
[2019-03-08] MEDS: DOCUSATE SODIUM 100 MG CAPSULE (FP) PO SCH ×2 (10:00→21:33)
[2019-03-08] MEDS: MOMETASONE FUROATE 220 MCG/IH INHALER IH SCH ×2 (10:01→21:33)
[2019-03-08] MEDS: TIOTROPIUM BROMIDE 2.5 MCG (SPIRIVA) RESPIMAT INHALER IH SCH (10:02)
[2019-03-08] MEDS: POLYETHYLENE GLYCOL 3350 119 GM BTL PO SCH ×2 (10:02→21:34)
[2019-03-08] MEDS: RANOLAZINE E.R. 500 MG TABLET (FP) PO SCH ×2 (10:57→21:32)
[2019-03-08] MEDS: CYANOCOBALAMIN 1,000 MCG TABLET (FP) PO SCH (10:58)
[2019-03-08] MEDS: AMIODARONE HCL 200 MG TABLET (FP) PO SCH (10:59)
[2019-03-08] MEDS: FOLIC ACID 1 MG TABLET (FP) PO SCH (10:59)
[2019-03-08] MEDS: VITAMIN E 400 INTERNATIONAL-UNITS CAPSULE (FP) PO SCH (11:58)
--- NOTE | 2019-03-08 12:17 | PN ---
Progress Note, Physician History of Present Illness: Dypnea on exertion and orthopnea improved post thoracentesis 1500 cc, episode of positional near syncope and hypotension going to BR. Remains in rapid afib. - Current Medication List Current Medications: Active Medications Acetaminophen (Tylenol -) 650 mg PO Q4H PRN PRN Reason: FEVER Albuterol/Ipratropium (Duoneb -) 1 amp NEB RTID [facility] Last Admin: 03/08/19 08:10 Dose: 1 amp Amiodarone HCl (Cordarone -) 200 mg PO DAILY [facility] Last Admin: 03/07/19 09:12 Dose: 200 mg Atorvastatin Calcium (Lipitor -) 80 mg PO HS [facility] Last Admin: 03/07/19 21:20 Dose: 80 mg Cyanocobalamin (Vitamin B12 -) 1,000 mcg PO DAILY [facility] Last Admin: 03/07/19 09:12 Dose: 1,000 mcg Diltiazem HCl (Cardizem Injection -) 10 mg IVPUSH Q4H PRN PRN Reason: TACHYCARDIA Last Admin: 03/07/19 15:49 Dose: 10 mg Docusate Sodium (Colace -) 100 mg PO BID [facility] Last Admin: 03/07/19 21:20 Dose: 100 mg Folic Acid (Folic Acid -) 1 mg PO DAILY [facility] Last Admin: 03/07/19 09:12 Dose: 1 mg Furosemide (Lasix Injection -) 40 mg IVPUSH DAILY [facility] Last Admin: 03/07/19 09:11 Dose: 40 mg Insulin Aspart (Novolog Vial Sliding Scale -) 1 vial SQ ACHS [facility]; Protocol Last Admin: 03/08/19 06:45 Dose: 2 units Isosorbide Mononitrate (Imdur -) 30 mg PO DAILY [facility] Last Admin: 03/07/19 09:12 Dose: 30 mg Metoprolol Succinate (Toprol Xl -) 100 mg PO BID [facility] Last Admin: 03/07/19 21:20 Dose: 100 mg Mometasone Furoate (Asmanex 220mcg -) 1 puff IH BID [facility] Last Admin: 03/07/19 21:23 Dose: 1 puff Polyethylene Glycol (Miralax (For Daily Use) -) 17 gm PO BID [facility] Last Admin: 03/07/19 21:51 Dose: 17 gm Ranolazine (Ranexa -) 500 mg PO BID [facility] Last Admin: 03/07/19 21:20 Dose: 500 mg Rivaroxaban (Xarelto) 15 mg PO DAILY@1800 [facility] Last Admin: 03/07/19 18:30 Dose: 15 mg Tiotropium [place] (Spiriva Respimat) 2 puff IH DAILY [facility] Last Admin: 03/07/19 09:17 Dose: 2 puff Vitamin E (Vitamin E -) 400 unit PO DAILY [facility] Last Admin: 03/07/19 12:16 Dose: 400 unit - Objective Vital Signs: Vital Signs Temperature 98.2 F 03/08/19 05:19 Pulse Rate 108 H 03/08/19 05:19 Respiratory Rate 18 03/08/19 05:19 Blood Pressure 105/76 03/08/19 05:19 O2 Sat by Pulse Oximetry (%) 100 03/07/19 21:00 Constitutional: Yes: No Distress, Calm Neck: Yes: Supple Cardiovascular: Yes: Tachycardia, Pulse Irregular Respiratory: Yes: Regular, Diminished, On Nasal O2 Gastrointestinal: Yes: Normal Bowel Sounds, Soft, Abdomen, Obese Edema: Yes Edema: LLE: Trace, RLE: Trace Labs: CBC, BMP 03/08/19 05:15 03/08/19 05:15 INR, PTT INR 1.18 (0.83-1.09) H 03/06/19 05:20 Problem List - Problems (1) Abnormal TSH Code(s): R79.89 - OTHER SPECIFIED ABNORMAL FINDINGS OF BLOOD CHEMISTRY (2) Anemia Code(s): D64.9 - ANEMIA, UNSPECIFIED Qualifiers: Anemia type: unspecified type Qualified Code(s): D64.9 - Anemia, unspecified (3) Hypotension Code(s): I95.9 - HYPOTENSION, UNSPECIFIED Qualifiers: Hypotension type: hypotension due to hypovolemia Qualified Code(s): I95.89 - Other hypotension; E86.1 - Hypovolemia (4) Mesenteric mass Code(s): K63.89 - OTHER SPECIFIED DISEASES OF INTESTINE (5) Portal hypertensive gastropathy Code(s): K76.6 - PORTAL HYPERTENSION; K31.89 - OTHER DISEASES OF STOMACH AND DUODENUM (6) Kjpfm-bk-mnjlksz kidney injury Code(s): N17.9 - ACUTE KIDNEY FAILURE, UNSPECIFIED; N18.9 - CHRONIC KIDNEY DISEASE, UNSPECIFIED Qualifiers: Chronic kidney disease stage: stage 2 (mild) (7) CHF (congestive heart failure) Code(s): I50.9 - HEART FAILURE, UNSPECIFIED Qualifiers: Heart failure type: diastolic Heart failure chronicity: chronic Qualified Code(s): I50.32 - Chronic diastolic (congestive) heart failure (8) Hx of CABG Code(s): Z95.1 - PRESENCE OF AORTOCORONARY BYPASS GRAFT (9) Hyperlipidemia Code(s): E78.5 - HYPERLIPIDEMIA, UNSPECIFIED Qualifiers: Hyperlipidemia type: pure hypercholesterolemia Qualified Code(s): E78.00 - Pure hypercholesterolemia, unspecified; E78.0 - Pure hypercholesterolemia (10) Hypertension Code(s): I10 - ESSENTIAL (PRIMARY) HYPERTENSION Qualifiers: Hypertension type: essential hypertension Qualified Code(s): I10 - Essential (primary) hypertension (11) Paroxysmal atrial fibrillation with rapid ventricular response Code(s): I48.0 - PAROXYSMAL ATRIAL FIBRILLATION (12) Syncope, near Code(s): R55 - SYNCOPE AND COLLAPSE Assessment/Plan 02/02/2019 Chest CTA: No PE, increased bilateral pleural effusions R>L c/w pulm vascular congestion 02/01/2019 Lexiscan Myoview: No ischemia, LVEF 48% 02/02/2019 Echo: Mild cLVH normal LV and RV size and fxn, mild LAE, mild , tr TR RVSP 23 mmHg, pleural effusion 12/08/2018 Echo: cLVH with normal LVEF 65-70%, mild LAE 4.6 cm, mild CHILO, normal RV size and fxn, mild MR, mild-mod TR RVSP 31 mmHg 1. Weakness, fatigue, near syncope due to hypovolemic hypotension resolving 2. Chronic anemia with history of diverticulosis and gastritis 3. Acute on chronic diastolic heart failure and bilateral pleural effusions R>L pot thoracentesis 4. Paroxysmal AF with RVR 5. CAD s/p CABG, PCI, angina 6. Type 2 DM 7. Hyperlipidemia 8. Acute on CKD pre-renal improving 9. HTN 10. RESTREPO with cirrhosis, cholelithiasis 11. 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 Abnormal TSH, ? sick euthyroid vs amio effects PLAN: 1. Continue IV diuresis with monitoring diuretic response, renal recovery and electrolytes, f/u pleural fluid studies 2. Resume renal-dosed Xarelto 15 qd w/o ASA 81 qd given stable CAD 3. Continue Toprol XL 100 mg BID, Losartan 25 mg QD, agree with wean off Imdur 30 qd 4. Continue Ranexa 500 bid, amio 200 qd, Lipitor 80 qd, Vascepa 2 bid 5. Bronchodilator, O2 as needed 6. CT with contrast when renal function permits to assess status of mesenteric mass and exclude other occult neoplasm ? hepatoma 7. Follow up with Dr. Sage upon discharge
--- NOTE | 2019-03-08 12:35 | PN ---
Progress Note, Physician History of Present Illness: PULMONARY ALERT,FEELING BETTER,DYSPNEA IMPROVING,O2 SAT 96% ON RA - Current Medication List Current Medications: Active Medications Acetaminophen (Tylenol -) 650 mg PO Q4H PRN PRN Reason: FEVER Albuterol/Ipratropium (Duoneb -) 1 amp NEB RTID [facility] Last Admin: 03/08/19 08:10 Dose: 1 amp Amiodarone HCl (Cordarone -) 200 mg PO DAILY [facility] Last Admin: 03/07/19 09:12 Dose: 200 mg Atorvastatin Calcium (Lipitor -) 80 mg PO HS [facility] Last Admin: 03/07/19 21:20 Dose: 80 mg Cyanocobalamin (Vitamin B12 -) 1,000 mcg PO DAILY [facility] Last Admin: 03/07/19 09:12 Dose: 1,000 mcg Diltiazem HCl (Cardizem Injection -) 10 mg IVPUSH Q4H PRN PRN Reason: TACHYCARDIA Last Admin: 03/07/19 15:49 Dose: 10 mg Docusate Sodium (Colace -) 100 mg PO BID [facility] Last Admin: 03/07/19 21:20 Dose: 100 mg Folic Acid (Folic Acid -) 1 mg PO DAILY [facility] Last Admin: 03/07/19 09:12 Dose: 1 mg Furosemide (Lasix Injection -) 40 mg IVPUSH DAILY [facility] Last Admin: 03/07/19 09:11 Dose: 40 mg Insulin Aspart (Novolog Vial Sliding Scale -) 1 vial SQ [facility]; Protocol Last Admin: 03/08/19 06:45 Dose: 2 units Metoprolol Succinate (Toprol Xl -) 100 mg PO BID [facility] Last Admin: 03/07/19 21:20 Dose: 100 mg Mometasone Furoate (Asmanex 220mcg -) 1 puff IH BID [facility] Last Admin: 03/07/19 21:23 Dose: 1 puff Polyethylene Glycol (Miralax (For Daily Use) -) 17 gm PO BID [facility] Last Admin: 03/07/19 21:51 Dose: 17 gm Ranolazine (Ranexa -) 500 mg PO BID [facility] Last Admin: 03/07/19 21:20 Dose: 500 mg Rivaroxaban (Xarelto) 15 mg PO DAILY@1800 [facility] Last Admin: 03/07/19 18:30 Dose: 15 mg Tiotropium [place] (Spiriva Respimat) 2 puff IH DAILY [facility] Last Admin: 03/07/19 09:17 Dose: 2 puff Vitamin E (Vitamin E -) 400 unit PO DAILY [facility] Last Admin: 03/07/19 12:16 Dose: 400 unit - Objective Vital Signs: Vital Signs Temperature 98.2 F 03/08/19 05:19 Pulse Rate 108 H 03/08/19 05:19 Respiratory Rate 18 03/08/19 05:19 Blood Pressure 105/76 03/08/19 05:19 O2 Sat by Pulse Oximetry (%) 100 03/07/19 21:00 Constitutional: Yes: Well Nourished, Calm Eyes: Yes: WNL HENT: Yes: WNL Neck: Yes: WNL Cardiovascular: Yes: Pulse Irregular, S1, S2 Respiratory: Yes: Diminished Gastrointestinal: Yes: Normal Bowel Sounds, Soft Extremities: Yes: WNL Edema: Yes Labs: CBC, BMP 03/08/19 05:15 03/08/19 05:15 Problem List - Problems (1) Abnormal TSH Code(s): R79.89 - OTHER SPECIFIED ABNORMAL FINDINGS OF BLOOD CHEMISTRY (2) Anemia Code(s): D64.9 - ANEMIA, UNSPECIFIED Qualifiers: Anemia type: unspecified type Qualified Code(s): D64.9 - Anemia, unspecified (3) CKD (chronic kidney disease) Code(s): N18.9 - CHRONIC KIDNEY DISEASE, UNSPECIFIED (4) Cirrhosis of 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 due to alcohol Code(s): K74.60 - UNSPECIFIED CIRRHOSIS OF LIVER (5) Hypotension Code(s): I95.9 - HYPOTENSION, UNSPECIFIED Qualifiers: Hypotension type: hypotension due to hypovolemia Qualified Code(s): I95.89 - Other hypotension; E86.1 - Hypovolemia (6) Mesenteric mass Code(s): K63.89 - OTHER SPECIFIED DISEASES OF INTESTINE (7) Owhoi-wf-kmgiqzj kidney injury Code(s): N17.9 - ACUTE KIDNEY FAILURE, UNSPECIFIED; N18.9 - CHRONIC KIDNEY DISEASE, UNSPECIFIED Qualifiers: Chronic kidney disease stage: stage 2 (mild) (8) CHF (congestive heart failure) Code(s): I50.9 - HEART FAILURE, UNSPECIFIED Qualifiers: Heart failure type: diastolic Heart failure chronicity: chronic Qualified Code(s): I50.32 - Chronic diastolic (congestive) heart failure (9) Diabetes Code(s): E11.9 - TYPE 2 DIABETES MELLITUS WITHOUT COMPLICATIONS Qualifiers: Diabetes mellitus type: type 2 Diabetes mellitus mcfp insulin use: without mcfp use (10) Hx of CABG Code(s): Z95.1 - PRESENCE OF AORTOCORONARY BYPASS GRAFT (11) Hyperlipidemia Code(s): E78.5 - HYPERLIPIDEMIA, UNSPECIFIED Qualifiers: Hyperlipidemia type: pure hypercholesterolemia Qualified Code(s): E78.00 - Pure hypercholesterolemia, unspecified; E78.0 - Pure hypercholesterolemia (12) Hypertension Code(s): I10 - ESSENTIAL (PRIMARY) HYPERTENSION Qualifiers: Hypertension type: essential hypertension Qualified Code(s): I10 - Essential (primary) hypertension (13) Pleural effusion Code(s): J90 - PLEURAL EFFUSION, NOT ELSEWHERE CLASSIFIED (14) Shortness of breath Code(s): R06.02 - SHORTNESS OF BREATH (15) Syncope, near Code(s): R55 - SYNCOPE AND COLLAPSE Assessment/Plan IMP DYSPNEA IPROVING ACUTE ON CHRONIC CHF BILATERAL PLEURAL EFFUSIONS SECONDARY TO CHF NEAR SYNCOPE PULMONARY NODULES STABLE ASHD A/P CABG AFIB DM ANEMIA ACUTE ON CHRONIC KIDNEY DISEASE CIRRHOSIS SECONDARY TO RESTREPO MESENTERIC MASS PLAN DIURETICS O2 CHECK RESULTS OF PLEURAL FLUID CHEMISTRIES,CYTOLOGY PENDING DAILY WTS RATE CONTROL PER CARDIOLOGY STRICT I+OS MONITOR LYTES,RENAL FUNCTION F/U CHEST-RAYS DR JEAN BAPTISTE Problem List - Problems (1) Abnormal TSH Code(s): R79.89 - OTHER SPECIFIED ABNORMAL FINDINGS OF BLOOD CHEMISTRY (2) Anemia Code(s): D64.9 - ANEMIA, UNSPECIFIED Qualifiers: Anemia type: unspecified type Qualified Code(s): D64.9 - Anemia, unspecified (3) CKD (chronic kidney disease) Code(s): N18.9 - CHRONIC KIDNEY DISEASE, UNSPECIFIED (4) Cirrhosis of liver not due to alcohol Code(s): K74.60 - UNSPECIFIED CIRRHOSIS OF LIVER (5) Hypotension Code(s): I95.9 - HYPOTENSION, UNSPECIFIED Qualifiers: Hypotension type: hypotension due to hypovolemia Qualified Code(s): I95.89 - Other hypotension; E86.1 - Hypovolemia (6) Mesenteric mass Code(s): K63.89 - OTHER SPECIFIED DISEASES OF INTESTINE (7) Blwhc-vp-gvwrwxm kidney injury Code(s): N17.9 - ACUTE KIDNEY FAILURE, UNSPECIFIED; N18.9 - CHRONIC KIDNEY DISEASE, UNSPECIFIED Qualifiers: Chronic kidney disease stage: stage 2 (mild) (8) CHF (congestive heart failure) Code(s): I50.9 - HEART FAILURE, UNSPECIFIED Qualifiers: Heart failure type: diastolic Heart failure chronicity: chronic Qualified Code(s): I50.32 - Chronic diastolic (congestive) heart failure (9) Diabetes Code(s): E11.9 - TYPE 2 DIABETES MELLITUS WITHOUT COMPLICATIONS Qualifiers: Diabetes mellitus type: type 2 Diabetes mellitus rn long term care insulin use: without rn long term care use (10) Hx of CABG Code(s): Z95.1 - PRESENCE OF AORTOCORONARY BYPASS GRAFT (11) Hyperlipidemia Code(s): E78.5 - HYPERLIPIDEMIA, UNSPECIFIED Qualifiers: Hyperlipidemia type: mixed hyperlipidemia Qualified Code(s): E78.2 - Mixed hyperlipidemia (12) Hypertension Code(s): I10 - ESSENTIAL (PRIMARY) HYPERTENSION Qualifiers: Hypertension type: essential hypertension Qualified Code(s): I10 - Essential (primary) hypertension (13) Pleural effusion Code(s): J90 - PLEURAL EFFUSION, NOT ELSEWHERE CLASSIFIED (14) Shortness of breath Code(s): R06.02 - SHORTNESS OF BREATH (15) Syncope, near Code(s): R55 - SYNCOPE AND COLLAPSE
[2019-03-08 13:12] LABS: BODY FLUID ALBUMIN 2.2 g/dL (.)
--- NOTE | 2019-03-08 15:56 | PN ---
Physical Exam: SUBJECTIVE: Patient seen and examined, breathing improved, no dizziness currently. reports long standing h/o positional dizziness where has to time herself and gradually change her position. OBJECTIVE: Vital Signs Period Temp Pulse Resp BP Sys/Cortes Pulse Ox Last 24 Hr 97.4 F-98.2 F 71-116 18-18 81-125/50-77 100 Intake & Output 03/05/19 03/06/19 03/07/19 03/08/19 23:59 23:59 23:59 23:59 Intake Total 410 120 950 420 Balance 410 120 950 420 GENERAL: alert, awake, in no acute distress neck: soft, supple, neck vein distension Chest: fine bibasilar rales, R>L, good air entry Abdomen:soft, NT, ND Extremities: 1+ pedal edema Laboratory Results - last 24 hr 03/07/19 03/07/19 03/07/19 11:00 17:32 21:19 WBC RBC Hgb Hct MCV MCH MCHC RDW Plt Count MPV Absolute Neuts (auto) Neutrophils % Lymphocytes % Monocytes % Eosinophils % Basophils % Nucleated RBC % Sodium Potassium Chloride Carbon Dioxide Anion Gap BUN Creatinine Est GFR (CKD-EPI)AfAm Est GFR (CKD-EPI)NonAf POC Glucometer 162 195 Random Glucose Calcium Phosphorus Magnesium Fluid Glucose 170 Fluid Total Protein 3.9 Fluid Albumin 2.2 Body Fluid LDH Source 138 Fluid Amylase 62 Fluid Triglycerides 03/08/19 03/08/19 03/08/19 05:12 05:15 05:15 WBC 6.6 RBC 2.92 L Hgb 9.1 L Hct 26.6 L MCV 91.2 MCH 31.1 MCHC 34.1 RDW 16.5 H Plt Count 271 MPV 8.1 Absolute Neuts (auto) 5.6 Neutrophils % 84.7 H Lymphocytes % 7.2 L Monocytes % 6.0 Eosinophils % 1.8 Basophils % 0.3 Nucleated RBC % 0 Sodium 138 Potassium 3.6 Chloride 101 Carbon Dioxide 31 Anion Gap 6 L BUN 31.6 H Creatinine 1.3 Est GFR (CKD-EPI)AfAm 43.32 Est GFR (CKD-EPI)NonAf 37.38 POC Glucometer 152 Random Glucose 143 H Calcium 9.1 Phosphorus 3.2 Magnesium 2.2 Fluid Glucose Fluid Total Protein Fluid Albumin Body Fluid LDH Source Fluid Amylase Fluid Triglycerides 03/08/19 11:52 WBC RBC Hgb Hct MCV MCH MCHC RDW Plt Count MPV Absolute Neuts (auto) Neutrophils % Lymphocytes % Monocytes % Eosinophils % Basophils % Nucleated RBC % Sodium Potassium Chloride Carbon Dioxide Anion Gap BUN Creatinine Est GFR (CKD-EPI)AfAm Est GFR (CKD-EPI)NonAf POC Glucometer 182 Random Glucose Calcium Phosphorus Magnesium Fluid Glucose Fluid Total Protein Fluid Albumin Body Fluid LDH Source Fluid Amylase Fluid Triglycerides Active Medications Generic Name Dose Route Start Last Admin Trade Name Freq PRN Reason Stop Dose Admin Acetaminophen 650 mg 03/03/19 14:52 Tylenol - PO Q4H PRN FEVER Albuterol/Ipratropium 1 amp 03/05/19 14:00 03/08/19 08:10 Duoneb - NEB 1 amp RTID JENNY Administration Amiodarone HCl 200 mg 03/04/19 10:00 03/08/19 10:59 Cordarone - PO 200 mg DAILY JENNY Administration Atorvastatin Calcium 80 mg 03/03/19 22:00 03/07/19 21:20 Lipitor - PO 80 mg HS JENNY Administration Cyanocobalamin 1,000 mcg 03/04/19 10:00 03/08/19 10:58 Vitamin B12 - PO 1,000 mcg DAILY JENNY Administration Diltiazem HCl 10 mg 03/07/19 15:27 03/07/19 15:49 Cardizem Injection - IVPUSH 10 mg Q4H PRN Administration TACHYCARDIA Docusate Sodium 100 mg 03/04/19 22:00 03/08/19 10:00 Colace - PO 100 mg BID JENNY Administration Folic Acid 1 mg 03/04/19 10:00 03/08/19 10:59 Folic Acid - PO 1 mg DAILY JENNY Administration Furosemide 40 mg 03/06/19 10:30 03/07/19 09:11 Lasix Injection - IVPUSH 40 mg DAILY JENNY Administration Insulin Aspart 1 vial 03/03/19 16:30 03/08/19 11:55 Novolog Vial Sliding Scale - SQ 2 units ACHS JENNY Administration Protocol Metoprolol Succinate 100 mg 03/06/19 22:00 03/08/19 10:57 Toprol Xl - PO 100 mg BID JENNY Administration Mometasone Furoate 1 puff 03/03/19 22:00 03/08/19 10:01 Asmanex 220mcg - IH 1 puff BID JENNY Administration Polyethylene Glycol 17 gm 03/03/19 22:00 03/08/19 10:02 Miralax (For Daily Use) - PO 17 gm BID JENNY Administration Ranolazine 500 mg 03/03/19 22:00 03/08/19 10:57 Ranexa - PO 500 mg BID JENNY Administration Rivaroxaban 15 mg 03/06/19 18:00 03/07/19 18:30 Xarelto PO 15 mg DAILY@1800 JENNY Administration Tiotropium [place] 2 puff 03/04/19 10:00 03/08/19 10:02 Spiriva Respimat IH 2 puff DAILY JENNY Administration Vitamin E 400 unit 03/04/19 10:00 03/08/19 11:58 Vitamin E - PO 400 unit DAILY JENNY Administration CXR post thoracocentesis images and results reviewed Afib with HR 100s-120s ASSESSMENT/PLAN: 83 yof with PMHx of CAD, s/p PCI, CABG (2003), DCHF, Afib on coumadin, HTN, NIDDM, Hyperlipidemia, chronic right sided pleural effusions s/p thoracocentesis , diverticulosis, gastritis, chronic anemia, RESTREPO with cirrhosis, and anxiety, admitted with CHF 01/2019, admitted with near syncope, hypotension -Near syncope, suspected hypovolumic hypotension -Chronic diastolic heart failure - Anemia with constipation/gastritis -Afib with RVr -Chronic bilateral pleural effusions, R>L, s/p right thoracocentesis 1.5 bloody fluid 03/07 -CAD s/p PCI, CABG 2013 -HTN -HLD -NIDDM -RESTREPO with cirrhosis -Pulmonary nodules Plan: Initially on IVF, stopped given progressive volume overload, lasix resumed. last 24 hours events noted, near syncopal event with hypotension, s/p gentle hydration x 12 hours. Hold lasix today, resume 40 mg PO in Am if no concerns. Monitor volume status closely. Volume status difficult to treat in the setting of ongoing orthostatic hypotension and near syncopal events. Will need to address midodrine if ongoing orthostatic hypotensive episodes and CHf concerns. Imdur d/hiral. Continue metoprolol/ranexa. Off ARB for now. Pleural fluid studies noted, called lab, cytology added. Exudative suspect from chronic nature of CHF and bloody could from Ac. Coumadin d/hiral, s/p vitamin K. INR improved. Continue xarelto. Dispo pending clinical improvement. PT eval and d/c planning in 1-2 days if BP stable and no concerns. Discussed with patient and son at bedside in detail, all questions answered. Visit type - Emergency Visit Emergency Visit: Yes ED Registration Date: 03/03/19 Care time: The patient presented to the Emergency Department on the above date and was hospitalized for further evaluation of their emergent condition. - New Patient This patient is new to me today: Yes Date on this admission: 03/08/19 - Critical Care Critical Care patient: No - Discharge Referral Referred to [facility] Med [facility] No
[2019-03-08] MEDS: RIVAROXABAN 15 MG TABLET PO SCH (17:39)
[2019-03-08] MEDS: ATORVASTATIN CA 80 MG TABLET (FP) PO SCH (21:32)
[2019-03-09] MEDS: INSULIN SLIDING SCALE (NOVOLOG) 1 VIAL SQ SCH ×4 (06:56→21:20)
[2019-03-09] MEDS: ALBUTEROL SO4 2.5/IPRATROPIUM 0.5 INH SOL 3 ML VIAL.NEB. NEB SCH ×3 (08:00→20:15)
[2019-03-09 08:28] LABS: BASO % 0.5 % (0-2.0); EOS % 2.9 % (0-4.5); HEMATOCRIT 26.2 % (32.4-45.2); LYMPH % 10.1 % (8-40); MCH 31.4 pg (25.7-33.7); MCHC 34.4 g/dl (32.0-36.0); MEAN CELL VOLUME 91.4 fl (80-96); MONO % 8.4 % (3.8-10.2); NEUT % 78.1 % (42.8-82.8); PLATELET COUNT 269 K/MM3 (134-434); RBC 2.87 M/mm3 (3.60-5.2); RDW 16.9 % (11.6-15.6); WHITE BLOOD COUNT 5.1 K/mm3 (4.0-10.0)
--- NOTE | 2019-03-09 08:49 | PN ---
Progress Note (short form) - Note Progress Note: Hospitalist to document today. Feels better less dizzy; off Imdur. Await cytology of pleural fluid.
[2019-03-09 08:54] LABS: ALBUMIN 2.5 g/dl (3.4-5.0); BILIRUBIN,TOTAL 0.7 mg/dL (0.2-1); BLOOD UREA NITROGEN 29.8 mg/dL (7-18); CALCIUM 9.1 mg/dL (8.5-10.1); CREATININE 1.3 mg/dL (0.55-1.3); MAGNESIUM 2.3 mg/dL (1.8-2.4); PHOSPHOROUS 2.6 mg/dL (2.5-4.9)
[2019-03-09] MEDS ORDERED: PT OWN MED DRAWER 7, Y5N ONE (09:58)
[2019-03-09] MEDS: FUROSEMIDE 40 MG/4 ML INJECTABLE VIAL IVPUSH SCH (10:02)
[2019-03-09] MEDS: DOCUSATE SODIUM 100 MG CAPSULE (FP) PO SCH ×2 (10:02→21:21)
[2019-03-09] MEDS: CYANOCOBALAMIN 1,000 MCG TABLET (FP) PO SCH (10:02)
[2019-03-09] MEDS: AMIODARONE HCL 200 MG TABLET (FP) PO SCH (10:02)
[2019-03-09] MEDS: VITAMIN E 400 INTERNATIONAL-UNITS CAPSULE (FP) PO SCH (10:03)
[2019-03-09] MEDS: FOLIC ACID 1 MG TABLET (FP) PO SCH (10:03)
[2019-03-09] MEDS: MOMETASONE FUROATE 220 MCG/IH INHALER IH SCH ×2 (10:04→21:21)
--- NOTE | 2019-03-09 10:04 | PN ---
Physical Exam: SUBJECTIVE: Patient seen and examined, better, less dizzy but has not gotten out of bed yet. Breathing improved, no new complaints. OBJECTIVE: Vital Signs Period Temp Pulse Resp BP Sys/Cortes Pulse Ox Last 24 Hr 97.7 F-98.3 F 92-114 18-18 88-113/57-77 96-96 Intake & Output 03/06/19 03/07/19 03/08/19 03/09/19 23:59 23:59 23:59 23:59 Intake Total 088 497 3535 Output Total 350 Balance 046 512 3671 -350 GENERAL: alert, awake, in no acute distress Neck: improved neck vein distension HEENT: PERRL Chest: decreased breath sounds right base, few left basilar rales Abdomen:Soft, NT, ND Extremities: improved pedal edema Psych: pleasant, co-operative Laboratory Results - last 24 hr 03/07/19 03/08/19 03/08/19 11:00 11:52 17:37 WBC RBC Hgb Hct MCV MCH MCHC RDW Plt Count MPV Absolute Neuts (auto) Neutrophils % Lymphocytes % Monocytes % Eosinophils % Basophils % Nucleated RBC % Sodium Potassium Chloride Carbon Dioxide Anion Gap BUN Creatinine Est GFR (CKD-EPI)AfAm Est GFR (CKD-EPI)NonAf POC Glucometer 182 121 Random Glucose Calcium Phosphorus Magnesium Total Bilirubin AST ALT Alkaline Phosphatase Total Protein Albumin POC Fluid pH 7.8 Fluid Glucose 170 Fluid Total Protein 3.9 Fluid Albumin 2.2 Body Fluid LDH Source 138 Fluid Amylase 62 Fluid Triglycerides 03/08/19 03/09/19 03/09/19 21:31 05:45 08:05 WBC 5.1 RBC 2.87 L Hgb 9.0 L Hct 26.2 L MCV 91.4 MCH 31.4 MCHC 34.4 RDW 16.9 H Plt Count 269 MPV 8.0 Absolute Neuts (auto) 4.0 Neutrophils % 78.1 Lymphocytes % 10.1 D Monocytes % 8.4 Eosinophils % 2.9 Basophils % 0.5 Nucleated RBC % 0 Sodium Potassium Chloride Carbon Dioxide Anion Gap BUN Creatinine Est GFR (CKD-EPI)AfAm Est GFR (CKD-EPI)NonAf POC Glucometer 165 177 Random Glucose Calcium Phosphorus Magnesium Total Bilirubin AST ALT Alkaline Phosphatase Total Protein Albumin POC Fluid pH Fluid Glucose Fluid Total Protein Fluid Albumin Body Fluid LDH Source Fluid Amylase Fluid Triglycerides 03/09/19 08:05 WBC RBC Hgb Hct MCV MCH MCHC RDW Plt Count MPV Absolute Neuts (auto) Neutrophils % Lymphocytes % Monocytes % Eosinophils % Basophils % Nucleated RBC % Sodium 140 Potassium 4.0 Chloride 102 Carbon Dioxide 32 Anion Gap 5 L BUN 29.8 H Creatinine 1.3 Est GFR (CKD-EPI)AfAm 43.32 Est GFR (CKD-EPI)NonAf 37.38 POC Glucometer Random Glucose 148 H Calcium 9.1 Phosphorus 2.6 Magnesium 2.3 Total Bilirubin 0.7 AST 14 L ALT 23 Alkaline Phosphatase 92 Total Protein 6.0 L Albumin 2.5 L POC Fluid pH Fluid Glucose Fluid Total Protein Fluid Albumin Body Fluid LDH Source Fluid Amylase Fluid Triglycerides Active Medications Generic Name Dose Route Start Last Admin Trade Name Freq PRN Reason Stop Dose Admin Acetaminophen 650 mg 03/03/19 14:52 Tylenol - PO Q4H PRN FEVER Albuterol/Ipratropium 1 amp 03/05/19 14:00 03/09/19 08:00 Duoneb - NEB 1 amp RTID JENNY Administration Amiodarone HCl 200 mg 03/04/19 10:00 03/08/19 10:59 Cordarone - PO 200 mg DAILY JENNY Administration Atorvastatin Calcium 80 mg 03/03/19 22:00 03/08/19 21:32 Lipitor - PO 80 mg HS JENNY Administration Cyanocobalamin 1,000 mcg 03/04/19 10:00 03/08/19 10:58 Vitamin B12 - PO 1,000 mcg DAILY JENNY Administration Diltiazem HCl 10 mg 03/07/19 15:27 03/07/19 15:49 Cardizem Injection - IVPUSH 10 mg Q4H PRN Administration TACHYCARDIA Docusate Sodium 100 mg 03/04/19 22:00 03/08/19 21:33 Colace - PO 100 mg BID JENNY Administration Folic Acid 1 mg 03/04/19 10:00 03/08/19 10:59 Folic Acid - PO 1 mg DAILY JENNY Administration Furosemide 40 mg 03/06/19 10:30 03/07/19 09:11 Lasix Injection - IVPUSH 40 mg DAILY JENNY Administration Insulin Aspart 1 vial 03/03/19 16:30 03/09/19 06:56 Novolog Vial Sliding Scale - SQ 2 units ACHS JENNY Administration Protocol Metoprolol Succinate 100 mg 03/06/19 22:00 03/08/19 21:32 Toprol Xl - PO 100 mg BID JENNY Administration Mometasone Furoate 1 puff 03/03/19 22:00 03/08/19 21:33 Asmanex 220mcg - IH 1 puff BID JENNY Administration Polyethylene Glycol 17 gm 03/03/19 22:00 03/08/19 21:34 Miralax (For Daily Use) - PO 17 gm BID JENNY Administration Ranolazine 500 mg 03/03/19 22:00 03/08/19 21:32 Ranexa - PO 500 mg BID JENNY Administration Rivaroxaban 15 mg 03/06/19 18:00 03/08/19 17:39 Xarelto PO 15 mg DAILY@1800 JENNY Administration Tiotropium [place] 2 puff 03/04/19 10:00 03/08/19 10:02 Spiriva Respimat IH 2 puff DAILY JENNY Administration Vitamin E 400 unit 03/04/19 10:00 03/08/19 11:58 Vitamin E - PO 400 unit DAILY JENNY Administration telemetry: Afib 80s-100s, occasional 120s, overall improved heart rate ASSESSMENT/PLAN: 83 yof with PMHx of CAD, s/p PCI, CABG (2003), DCHF, Afib on coumadin, HTN, NIDDM, Hyperlipidemia, chronic right sided pleural effusions s/p thoracocentesis , diverticulosis, gastritis, chronic anemia, RESTREPO with cirrhosis, and anxiety, admitted with CHF 01/2019, admitted with near syncope, hypotension -Near syncope, suspected hypovolumic hypotension -Chronic diastolic heart failure - Anemia with constipation/gastritis -Afib with RVr -Chronic bilateral pleural effusions, R>L, s/p right thoracocentesis 1.5 bloody fluid 03/07 -CAD s/p PCI, CABG 2013 -HTN -HLD -NIDDM -RESTREPO with cirrhosis -Pulmonary nodules Plan: Initially on IVF, stopped given progressive volume overload, lasix resumed. Recurrent near syncopal event 03/07. S/p 12 hours of gentle hydration. Hold lasix today. Overnight BP noted. Will attempt OOB with PT with monitoring of orthostatic vitals today, to see if symptoms, discussed with nursing. COntinue to hold imdur/losartan. Will need to address midodrine with lasix if recurrent orthostatic hypotension and worsening volume overload. Continue metoprolol/ranexa. Follow up pleural fluid cytology( sent, confirmed with lab). Exudative suspect from chronic nature of CHF and bloody could from Ac. Coumadin d/hiral, s/p vitamin K. INR improved. Continue xarelto. Dispo pending clinical improvement. PT eval and dispo planning over 48 hours if BP improved and volume status stable. Discussed with patient and nursing, all questions answered. Visit type - Emergency Visit Emergency Visit: Yes ED Registration Date: 03/03/19 Care time: The patient presented to the Emergency Department on the above date and was hospitalized for further evaluation of their emergent condition. - New Patient This patient is new to me today: No - Critical Care Critical Care patient: No - Discharge Referral Referred to [facility] No
[2019-03-09] MEDS: TIOTROPIUM BROMIDE 2.5 MCG (SPIRIVA) RESPIMAT INHALER IH SCH (10:05)
[2019-03-09] MEDS: POLYETHYLENE GLYCOL 3350 119 GM BTL PO SCH ×2 (10:15→21:22)
[2019-03-09] MEDS: RANOLAZINE E.R. 500 MG TABLET (FP) PO SCH ×2 (10:28→21:21)
--- NOTE | 2019-03-09 10:29 | PN ---
Progress Note, Physician History of Present Illness: Dypnea on exertion and orthopnea improved post thoracentesis 1500 cc, now off O2 , positional dizziness improving and afib with improved rate-control after medication adjustments. - Current Medication List Current Medications: Active Medications Acetaminophen (Tylenol -) 650 mg PO Q4H PRN PRN Reason: FEVER Albuterol/Ipratropium (Duoneb -) 1 amp NEB RTID [facility] Last Admin: 03/09/19 08:00 Dose: 1 amp Amiodarone HCl (Cordarone -) 200 mg PO DAILY [facility] Last Admin: 03/09/19 10:02 Dose: 200 mg Atorvastatin Calcium (Lipitor -) 80 mg PO HS [facility] Last Admin: 03/08/19 21:32 Dose: 80 mg Cyanocobalamin (Vitamin B12 -) 1,000 mcg PO DAILY [facility] Last Admin: 03/09/19 10:02 Dose: 1,000 mcg Diltiazem HCl (Cardizem Injection -) 10 mg IVPUSH Q4H PRN PRN Reason: TACHYCARDIA Last Admin: 03/07/19 15:49 Dose: 10 mg Docusate Sodium (Colace -) 100 mg PO BID [facility] Last Admin: 03/09/19 10:02 Dose: 100 mg Folic Acid (Folic Acid -) 1 mg PO DAILY [facility] Last Admin: 03/09/19 10:03 Dose: 1 mg Furosemide (Lasix Injection -) 40 mg IVPUSH DAILY [facility] Last Admin: 03/09/19 10:02 Dose: 40 mg Insulin Aspart (Novolog Vial Sliding Scale -) 1 vial SQ [facility]; Protocol Last Admin: 03/09/19 06:56 Dose: 2 units Metoprolol Succinate (Toprol Xl -) 100 mg PO BID [facility] Last Admin: 03/09/19 10:02 Dose: 100 mg Mometasone Furoate (Asmanex 220mcg -) 1 puff IH BID [facility] Last Admin: 03/09/19 10:04 Dose: 1 puff Polyethylene Glycol (Miralax (For Daily Use) -) 17 gm PO BID [facility] Last Admin: 03/09/19 10:15 Dose: 17 gm Ranolazine (Ranexa -) 500 mg PO BID [facility] Last Admin: 03/08/19 21:32 Dose: 500 mg Rivaroxaban (Xarelto) 15 mg PO DAILY@1800 [facility] Last Admin: 03/08/19 17:39 Dose: 15 mg Tiotropium [place] (Spiriva Respimat) 2 puff IH DAILY [facility] Last Admin: 03/09/19 10:05 Dose: 2 puff Vitamin E (Vitamin E -) 400 unit PO DAILY [facility] Last Admin: 03/09/19 10:03 Dose: 400 unit - Objective Vital Signs: Vital Signs Temperature 97.7 F 03/09/19 06:00 Pulse Rate 110 H 03/09/19 06:00 Respiratory Rate 18 03/09/19 09:00 Blood Pressure 113/77 03/09/19 06:00 O2 Sat by Pulse Oximetry (%) 96 03/09/19 09:00 Constitutional: Yes: No Distress, Calm Neck: Yes: Supple Cardiovascular: Yes: Pulse Irregular Respiratory: Yes: Regular, Diminished Gastrointestinal: Yes: Normal Bowel Sounds, Soft, Abdomen, Obese Edema: No Labs: CBC, BMP 03/09/19 08:05 03/09/19 08:05 INR, PTT INR 1.18 (0.83-1.09) H 03/06/19 05:20 - ....Imaging EKG: Report Reviewed (Tele: Afib with improved rate-control) Problem List - Problems (1) Abnormal TSH Code(s): R79.89 - OTHER SPECIFIED ABNORMAL FINDINGS OF BLOOD CHEMISTRY (2) Anemia Code(s): D64.9 - ANEMIA, UNSPECIFIED Qualifiers: Anemia type: unspecified type Qualified Code(s): D64.9 - Anemia, unspecified (3) Hypotension Code(s): I95.9 - HYPOTENSION, UNSPECIFIED Qualifiers: Hypotension type: hypotension due to hypovolemia Qualified Code(s): I95.89 - Other hypotension; E86.1 - Hypovolemia (4) Mesenteric mass Code(s): K63.89 - OTHER SPECIFIED DISEASES OF INTESTINE (5) Portal hypertensive gastropathy Code(s): K76.6 - PORTAL HYPERTENSION; K31.89 - OTHER DISEASES OF STOMACH AND DUODENUM (6) [id number] kidney injury Code(s): N17.9 - ACUTE KIDNEY FAILURE, UNSPECIFIED; N18.9 - CHRONIC KIDNEY DISEASE, UNSPECIFIED Qualifiers: Chronic kidney disease stage: stage 2 (mild) (7) CHF (congestive heart failure) Code(s): I50.9 - HEART FAILURE, UNSPECIFIED Qualifiers: Heart failure type: diastolic Heart failure chronicity: chronic Qualified Code(s): I50.32 - Chronic diastolic (congestive) heart failure (8) Hx of CABG Code(s): Z95.1 - PRESENCE OF AORTOCORONARY BYPASS GRAFT (9) Hyperlipidemia Code(s): E78.5 - HYPERLIPIDEMIA, UNSPECIFIED Qualifiers: Hyperlipidemia type: pure hypercholesterolemia Qualified Code(s): E78.00 - Pure hypercholesterolemia, unspecified; E78.0 - Pure hypercholesterolemia (10) Hypertension Code(s): I10 - ESSENTIAL (PRIMARY) HYPERTENSION Qualifiers: Hypertension type: essential hypertension Qualified Code(s): I10 - Essential (primary) hypertension (11) Paroxysmal atrial fibrillation with rapid ventricular response Code(s): I48.0 - PAROXYSMAL ATRIAL FIBRILLATION (12) Syncope, near Code(s): R55 - SYNCOPE AND COLLAPSE Assessment/Plan 02/02/2019 Chest CTA: No PE, increased bilateral pleural effusions R>L c/w pulm vascular congestion 02/01/2019 Lexiscan Myoview: No ischemia, LVEF 48% 02/02/2019 Echo: Mild cLVH normal LV and RV size and fxn, mild LAE, mild , tr TR RVSP 23 mmHg, pleural effusion 12/08/2018 Echo: cLVH with normal LVEF 65-70%, mild LAE 4.6 cm, mild CHILO, normal RV size and fxn, mild MR, mild-mod TR RVSP 31 mmHg 1. Weakness, fatigue, positional near syncope due to hypovolemic hypotension resolving 2. Chronic anemia with history of diverticulosis and gastritis 3. Acute on chronic diastolic heart failure and bilateral pleural effusions R>L post thoracentesis 4. Paroxysmal AF with RVR 5. CAD s/p CABG, PCI, angina 6. Type 2 DM 7. Hyperlipidemia 8. Acute on CKD pre-renal improving 9. HTN 10. RESTREPO with cirrhosis, cholelithiasis 11. 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 Abnormal TSH, ? sick euthyroid vs amio effects PLAN: 1. Continue IV diuresis with monitoring diuretic response, renal recovery and electrolytes, f/u pleural fluid studies 2. Resume renal-dosed Xarelto 15 qd w/o ASA 81 qd given stable CAD 3. Continue Toprol XL 100 mg BID. Losartan 25 qd and Imdur 30 qd have since been d/hiral 4. Continue Ranexa 500 bid, amio 200 qd, Lipitor 80 qd, Vascepa 2 bid 5. Bronchodilator, O2 as needed 6. CT with contrast when renal function permits to assess status of mesenteric mass and exclude other occult neoplasm ? hepatoma 7. Follow up with Dr. Sage upon discharge
--- NOTE | 2019-03-09 13:07 | PN ---
Progress Note (short form) - Note Progress Note: PULMONARY Breathing better s/p right thoracentesis draining 1500mL. Initial pleural fluid analysis suggestive of exudate by protein criteria but LDH low and cholesterol pending. Vital Signs Period Temp Pulse Resp BP Sys/Cortes Pulse Ox Last 24 Hr 97.7 F-98.3 F 92-114 18-18 88-113/57-77 96-96 Gen: NAD at rest Heart: RRR Lung: decreased breath sounds at the bases Abd: soft, nontender Ext: no edema CBC, BMP 03/09/19 08:05 03/09/19 08:05 Active Medications Acetaminophen (Tylenol -) 650 mg PO Q4H PRN PRN Reason: FEVER Albuterol/Ipratropium (Duoneb -) 1 amp NEB RTID [facility] Last Admin: 03/09/19 08:00 Dose: 1 amp Amiodarone HCl (Cordarone -) 200 mg PO DAILY [facility] Last Admin: 03/09/19 10:02 Dose: 200 mg Atorvastatin Calcium (Lipitor -) 80 mg PO HS [facility] Last Admin: 03/08/19 21:32 Dose: 80 mg Cyanocobalamin (Vitamin B12 -) 1,000 mcg PO DAILY [facility] Last Admin: 03/09/19 10:02 Dose: 1,000 mcg Diltiazem HCl (Cardizem Injection -) 10 mg IVPUSH Q4H PRN PRN Reason: TACHYCARDIA Last Admin: 03/07/19 15:49 Dose: 10 mg Docusate Sodium (Colace -) 100 mg PO BID [facility] Last Admin: 03/09/19 10:02 Dose: 100 mg Folic Acid (Folic Acid -) 1 mg PO DAILY [facility] Last Admin: 03/09/19 10:03 Dose: 1 mg Furosemide (Lasix Injection -) 40 mg IVPUSH DAILY [facility] Last Admin: 03/09/19 10:02 Dose: 40 mg Insulin Aspart (Novolog Vial Sliding Scale -) 1 vial SQ ACHS [facility]; Protocol Last Admin: 03/09/19 12:05 Dose: 2 units Metoprolol Succinate (Toprol Xl -) 100 mg PO BID [facility] Last Admin: 03/09/19 10:02 Dose: 100 mg Mometasone Furoate (Asmanex 220mcg -) 1 puff IH BID [facility] Last Admin: 03/09/19 10:04 Dose: 1 puff Polyethylene Glycol (Miralax (For Daily Use) -) 17 gm PO BID [facility] Last Admin: 03/09/19 10:15 Dose: 17 gm Ranolazine (Ranexa -) 500 mg PO BID [facility] Last Admin: 03/09/19 10:28 Dose: 500 mg Rivaroxaban (Xarelto) 15 mg PO DAILY@1800 [facility] Last Admin: 03/08/19 17:39 Dose: 15 mg Tiotropium [place] (Spiriva Respimat) 2 puff IH DAILY [facility] Last Admin: 03/09/19 10:05 Dose: 2 puff Vitamin E (Vitamin E -) 400 unit PO DAILY [facility] Last Admin: 03/09/19 10:03 Dose: 400 unit A/P Acute on Chronic Diastolic Heart Failure Paroxysmal Atrial Fibrillation Pleural Effusions s/p R thoracentesis CAD s/p CABG COPD Acute on Chronic Renal Failure HTN DM Hyperlipidemia RESTREPO/Liver Cirrhois - continue lasix - monitor urine output, creatinine - f/u pending pleural fluid studies - inhaled bronchodilators - O2 to keep Spo2 >90% - rate control - continue anticoagulation
[2019-03-09] MEDS: RIVAROXABAN 15 MG TABLET PO SCH (17:33)
[2019-03-09] MEDS: ATORVASTATIN CA 80 MG TABLET (FP) PO SCH (21:21)
[2019-03-10] MEDS: ALBUTEROL SO4 2.5/IPRATROPIUM 0.5 INH SOL 3 ML VIAL.NEB. NEB SCH ×3 (07:25→20:10)
[2019-03-10 08:12] LABS: BASO % 0.5 % (0-2.0); EOS % 2.3 % (0-4.5); HEMATOCRIT 29.6 % (32.4-45.2); HEMOGLOBIN 10.2 GM/dL (10.7-15.3); LYMPH % 10.7 % (8-40); MCH 31.4 pg (25.7-33.7); MCHC 34.3 g/dl (32.0-36.0); MEAN CELL VOLUME 91.7 fl (80-96); MEAN PLT VOLUME 8.3 fl (7.5-11.1); MONO % 7.5 % (3.8-10.2); PLATELET COUNT 322 K/MM3 (134-434); RBC 3.23 M/mm3 (3.60-5.2); RDW 16.9 % (11.6-15.6); WHITE BLOOD COUNT 5.8 K/mm3 (4.0-10.0)
[2019-03-10 09:46] LABS: ALBUMIN 2.6 g/dl (3.4-5.0); BILIRUBIN,TOTAL 0.6 mg/dL (0.2-1); CREATININE 1.4 mg/dL (0.55-1.3); MAGNESIUM 2.2 mg/dL (1.8-2.4); POTASSIUM 3.8 mmol/L (3.5-5.1); TOT PROT 6.2 g/dl (6.4-8.2)
--- NOTE | 2019-03-10 09:49 | PN ---
Progress Note (short form) - Note Progress Note: Hospitalist to document today. Await Pleural fluid analysis. SNF post hospital.
[2019-03-10] MEDS ORDERED: PT OWN MED DRAWER 7, Y5N ONE ×3 (09:51→17:52)
[2019-03-10] MEDS: INSULIN SLIDING SCALE (NOVOLOG) 1 VIAL SQ SCH ×4 (09:52→21:25)
--- NOTE | 2019-03-10 09:52 | PN ---
Progress Note, Physician History of Present Illness: Dypnea on exertion and orthopnea improved post thoracentesis 1500 cc, now off O2 , positional dizziness improving and afib with improved rate-control after medication adjustments. - Current Medication List Current Medications: Active Medications Acetaminophen (Tylenol -) 650 mg PO Q4H PRN PRN Reason: FEVER Albuterol/Ipratropium (Duoneb -) 1 amp NEB RTID [facility] Last Admin: 03/10/19 07:25 Dose: 1 amp Amiodarone HCl (Cordarone -) 200 mg PO DAILY [facility] Last Admin: 03/09/19 10:02 Dose: 200 mg Atorvastatin Calcium (Lipitor -) 80 mg PO HS [facility] Last Admin: 03/09/19 21:21 Dose: 80 mg Cyanocobalamin (Vitamin B12 -) 1,000 mcg PO DAILY [facility] Last Admin: 03/09/19 10:02 Dose: 1,000 mcg Diltiazem HCl (Cardizem Injection -) 10 mg IVPUSH Q4H PRN PRN Reason: TACHYCARDIA Last Admin: 03/07/19 15:49 Dose: 10 mg Docusate Sodium (Colace -) 100 mg PO BID [facility] Last Admin: 03/09/19 21:21 Dose: 100 mg Folic Acid (Folic Acid -) 1 mg PO DAILY [facility] Last Admin: 03/09/19 10:03 Dose: 1 mg Furosemide (Lasix -) 40 mg PO DAILY [facility] Insulin Aspart (Novolog Vial Sliding Scale -) 1 vial SQ ACHS [facility]; Protocol Last Admin: 03/09/19 21:20 Dose: 2 units Metoprolol Succinate (Toprol Xl -) 100 mg PO BID [facility] Last Admin: 03/09/19 21:21 Dose: 100 mg Mometasone Furoate (Asmanex 220mcg -) 1 puff IH BID [facility] Last Admin: 03/09/19 21:21 Dose: 1 puff Polyethylene Glycol (Miralax (For Daily Use) -) 17 gm PO BID [facility] Last Admin: 03/09/19 21:22 Dose: Not Given Ranolazine (Ranexa -) 500 mg PO BID [facility] Last Admin: 03/09/19 21:21 Dose: 500 mg Rivaroxaban (Xarelto) 15 mg PO DAILY@1800 [facility] Last Admin: 03/09/19 17:33 Dose: 15 mg Vitamin E (Vitamin E -) 400 unit PO DAILY [facility] Last Admin: 03/09/19 10:03 Dose: 400 unit - Objective Vital Signs: Vital Signs Temperature 97.5 F L 03/10/19 02:00 Pulse Rate 113 H 03/10/19 02:00 Respiratory Rate 20 03/10/19 02:00 Blood Pressure 116/58 L 03/10/19 02:00 O2 Sat by Pulse Oximetry (%) 97 03/09/19 21:00 Constitutional: Yes: No Distress, Calm Neck: Yes: Supple Cardiovascular: Yes: Pulse Irregular Respiratory: Yes: Regular, Diminished Gastrointestinal: Yes: Normal Bowel Sounds, Soft Edema: No Labs: CBC, BMP 03/10/19 07:12 03/10/19 07:12 INR, PTT INR 1.18 (0.83-1.09) H 03/06/19 05:20 - ....Imaging EKG: Report Reviewed (Tele: Rate-controlled afib with occ PVC) Problem List - Problems (1) Abnormal TSH Code(s): R79.89 - OTHER SPECIFIED ABNORMAL FINDINGS OF BLOOD CHEMISTRY (2) Anemia Code(s): D64.9 - ANEMIA, UNSPECIFIED Qualifiers: Anemia type: unspecified type Qualified Code(s): D64.9 - Anemia, unspecified (3) Hypotension Code(s): I95.9 - HYPOTENSION, UNSPECIFIED Qualifiers: Hypotension type: hypotension due to hypovolemia Qualified Code(s): I95.89 - Other hypotension; E86.1 - Hypovolemia (4) Mesenteric mass Code(s): K63.89 - OTHER SPECIFIED DISEASES OF INTESTINE (5) Portal hypertensive gastropathy Code(s): K76.6 - PORTAL HYPERTENSION; K31.89 - OTHER DISEASES OF STOMACH AND DUODENUM (6) Ryioo-hj-ewdazuc kidney injury Code(s): N17.9 - ACUTE KIDNEY FAILURE, UNSPECIFIED; N18.9 - CHRONIC KIDNEY DISEASE, UNSPECIFIED Qualifiers: Chronic kidney disease stage: stage 2 (mild) (7) CHF (congestive heart failure) Code(s): I50.9 - HEART FAILURE, UNSPECIFIED Qualifiers: Heart failure type: diastolic Heart failure chronicity: chronic Qualified Code(s): I50.32 - Chronic diastolic (congestive) heart failure (8) Hx of CABG Code(s): Z95.1 - PRESENCE OF AORTOCORONARY BYPASS GRAFT (9) Hyperlipidemia Code(s): E78.5 - HYPERLIPIDEMIA, UNSPECIFIED Qualifiers: Hyperlipidemia type: pure hypercholesterolemia Qualified Code(s): E78.00 - Pure hypercholesterolemia, unspecified; E78.0 - Pure hypercholesterolemia (10) Hypertension Code(s): I10 - ESSENTIAL (PRIMARY) HYPERTENSION Qualifiers: Hypertension type: essential hypertension Qualified Code(s): I10 - Essential (primary) hypertension (11) Paroxysmal atrial fibrillation with rapid ventricular response Code(s): I48.0 - PAROXYSMAL ATRIAL FIBRILLATION (12) Syncope, near Code(s): R55 - SYNCOPE AND COLLAPSE Assessment/Plan 02/02/2019 Chest CTA: No PE, increased bilateral pleural effusions R>L c/w pulm vascular congestion 02/01/2019 Lexiscan Myoview: No ischemia, LVEF 48% 02/02/2019 Echo: Mild cLVH normal LV and RV size and fxn, mild LAE, mild , tr TR RVSP 23 mmHg, pleural effusion 12/08/2018 Echo: cLVH with normal LVEF 65-70%, mild LAE 4.6 cm, mild CHILO, normal RV size and fxn, mild MR, mild-mod TR RVSP 31 mmHg 1. Weakness, fatigue, positional near syncope due to hypovolemic hypotension resolving 2. Chronic anemia with history of diverticulosis and gastritis 3. Acute on chronic diastolic heart failure and bilateral pleural effusions R>L post thoracentesis 4. Paroxysmal AF with RVR 5. CAD s/p CABG, PCI, angina 6. Type 2 DM 7. Hyperlipidemia 8. Acute on CKD pre-renal improving 9. HTN 10. RESTREPO with cirrhosis, cholelithiasis 11. 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 Abnormal TSH, ? sick euthyroid vs amio effects PLAN: 1. Lasix 40 po qd with monitoring diuretic response, renal recovery and electrolytes, f/u pleural fluid studies 2. Resume renal-dosed Xarelto 15 qd w/o ASA 81 qd given stable CAD 3. Continue Toprol XL 100 mg BID. Losartan 25 qd and Imdur 30 qd have since been d/hiral 4. Continue Ranexa 500 bid, amio 200 qd, Lipitor 80 qd, Vascepa 2 bid 5. Bronchodilator, O2 as needed 6. CT with contrast when renal function permits to assess status of mesenteric mass and exclude other occult neoplasm ? hepatoma 7. Follow up with Dr. Sage upon discharge
[2019-03-10] MEDS ORDERED: FUROSEMIDE 40 MG TABLET (FP) PO SCH (10:00)
[2019-03-10] MEDS: RANOLAZINE E.R. 500 MG TABLET (FP) PO SCH ×2 (10:29→21:25)
[2019-03-10] MEDS: AMIODARONE HCL 200 MG TABLET (FP) PO SCH (10:30)
[2019-03-10] MEDS: DOCUSATE SODIUM 100 MG CAPSULE (FP) PO SCH ×2 (10:30→21:25)
[2019-03-10] MEDS: FOLIC ACID 1 MG TABLET (FP) PO SCH (10:30)
[2019-03-10] MEDS: CYANOCOBALAMIN 1,000 MCG TABLET (FP) PO SCH (10:30)
[2019-03-10] MEDS: MOMETASONE FUROATE 220 MCG/IH INHALER IH SCH ×2 (10:31→21:26)
[2019-03-10] MEDS: POLYETHYLENE GLYCOL 3350 119 GM BTL PO SCH ×2 (10:31→21:27)
[2019-03-10] MEDS: VITAMIN E 400 INTERNATIONAL-UNITS CAPSULE (FP) PO SCH (11:24)
--- NOTE | 2019-03-10 11:28 | PN ---
Physical Exam: SUBJECTIVE: Patient seen and examined, denies any further dizziness, breathing improved, overall feels better, tolerating diet well, no lower abdominal pain or back pain, voiding in diaper. OBJECTIVE: Vital Signs Period Temp Pulse Resp BP Sys/Cortes Pulse Ox Last 24 Hr 97.5 F-98.2 F 95-113 18-20 100-127/58-70 97 Intake & Output 03/07/19 03/08/19 03/09/19 03/10/19 23:59 23:59 23:59 23:59 Intake Total 950 1200 850 100 Output Total 1550 Balance 950 1200 -700 100 GENERAL:sitting in bed in no acute distress necK: soft, supple, improved neck vein distension Chest: Decreased breath sounds bilateral bases, R>L Abdomen:soft, NT, nD Extremities: 1+ pedal edema CVS:S1S2 irregular Telemetry: Afib HR 80s-110s Laboratory Results - last 24 hr 03/09/19 03/09/19 03/09/19 11:49 16:20 21:17 WBC RBC Hgb Hct MCV MCH MCHC RDW Plt Count MPV Absolute Neuts (auto) Neutrophils % Lymphocytes % Monocytes % Eosinophils % Basophils % Nucleated RBC % Sodium Potassium Chloride Carbon Dioxide Anion Gap BUN Creatinine Est GFR (CKD-EPI)AfAm Est GFR (CKD-EPI)NonAf POC Glucometer 186 141 152 Random Glucose Calcium Phosphorus Magnesium Total Bilirubin AST ALT Alkaline Phosphatase Total Protein Albumin 03/10/19 03/10/19 03/10/19 05:35 07:12 07:12 WBC 5.8 RBC 3.23 L Hgb 10.2 L Hct 29.6 L MCV 91.7 MCH 31.4 MCHC 34.3 RDW 16.9 H Plt Count 322 MPV 8.3 Absolute Neuts (auto) 4.6 Neutrophils % 79.0 Lymphocytes % 10.7 Monocytes % 7.5 Eosinophils % 2.3 Basophils % 0.5 Nucleated RBC % 0 Sodium 137 Potassium 3.8 Chloride 99 Carbon Dioxide 31 Anion Gap 6 L BUN 31.0 H Creatinine 1.4 H Est GFR (CKD-EPI)AfAm 39.61 Est GFR (CKD-EPI)NonAf 34.18 POC Glucometer 127 Random Glucose 149 H Calcium 9.0 Phosphorus 3.0 Magnesium 2.2 Total Bilirubin 0.6 AST 18 ALT 25 Alkaline Phosphatase 102 Total Protein 6.2 L Albumin 2.6 L Active Medications Generic Name Dose Route Start Last Admin Trade Name Freq PRN Reason Stop Dose Admin Acetaminophen 650 mg 03/03/19 14:52 Tylenol - PO Q4H PRN FEVER Albuterol/Ipratropium 1 amp 03/05/19 14:00 03/10/19 07:25 Duoneb - NEB 1 amp RTID JENNY Administration Amiodarone HCl 200 mg 03/04/19 10:00 03/10/19 10:30 Cordarone - PO 200 mg DAILY JENNY Administration Atorvastatin Calcium 80 mg 03/03/19 22:00 03/09/19 21:21 Lipitor - PO 80 mg HS JENNY Administration Cyanocobalamin 1,000 mcg 03/04/19 10:00 03/10/19 10:30 Vitamin B12 - PO 1,000 mcg DAILY JENNY Administration Diltiazem HCl 10 mg 03/07/19 15:27 03/07/19 15:49 Cardizem Injection - IVPUSH 10 mg Q4H PRN Administration TACHYCARDIA Docusate Sodium 100 mg 03/04/19 22:00 03/10/19 10:30 Colace - PO 100 mg BID JENNY Administration Folic Acid 1 mg 03/04/19 10:00 03/10/19 10:30 Folic Acid - PO 1 mg DAILY JENNY Administration Furosemide 40 mg 03/10/19 10:00 03/10/19 10:30 Lasix - PO 40 mg DAILY JENNY Administration Insulin Aspart 1 vial 03/03/19 16:30 03/10/19 09:52 Novolog Vial Sliding Scale - SQ Not Given [facility] Protocol Metoprolol Succinate 100 mg 03/06/19 22:00 03/10/19 10:30 Toprol Xl - PO 100 mg BID JENNY Administration Mometasone Furoate 1 puff 03/03/19 22:00 03/10/19 10:31 Asmanex 220mcg - IH 1 puff BID JENNY Administration Polyethylene Glycol 17 gm 03/03/19 22:00 03/10/19 10:31 Miralax (For Daily Use) - PO 17 gm BID JENNY Administration Ranolazine 500 mg 03/03/19 22:00 03/10/19 10:29 Ranexa - PO 500 mg BID JENNY Administration Rivaroxaban 15 mg 03/06/19 18:00 03/09/19 17:33 Xarelto PO 15 mg DAILY@1800 JENNY Administration Vitamin E 400 unit 03/04/19 10:00 03/09/19 10:03 Vitamin E - PO 400 unit DAILY JENNY Administration Home Medications Medication Instructions Recorded Ranolazine [Ranexa] 500 mg PO BID 11/25/11 Folic Acid - 400 mcg PO ASDIR 02/16/12 Tiotropium [place] [Spiriva] 18 mcg IH DAILY PRN 02/09/15 Albuterol Sulfate [Proair 90 mcg IH BID PRN 03/18/16 Respiclick] Beclomethasone Dipropionate [Qvar] 0.04 mg IH BID 03/18/16 Furosemide [Lasix -] 40 mg PO DAILY 03/18/16 Glucosamine/D3/Boswellia Eda 1 tab PO BID 03/18/16 [Osteo Bi-Flex Caplet] Iron,Carbonyl [Feosol] 65 mg PO DAILY 03/18/16 Mometasone Furoate [Asmanex] 220 mcg IH BID PRN 03/18/16 Amiodarone HCl 200 mg PO BID 02/01/19 Atorvastatin Ca [Lipitor] 80 mg PO HS 02/01/19 Cyanocobalamin (Vitamin B-12) 1,000 mcg PO DAILY 02/01/19 [Vitamin B-12] Icosapent Ethyl [Vascepa] 2 gm PO BID 02/01/19 Losartan Potassium 25 mg PO DAILY 02/01/19 Metoprolol Succinate [Toprol Xl] 50 mg PO BID 02/01/19 Sitagliptin Phos/Metformin HCl 1 each PO BID 02/01/19 [Janumet 50-1,000 mg Tablet] Vitamin E 1 tab PO DAILY 02/01/19 Aspirin 81 mg PO DAILY 03/03/19 Isosorbide Mononitrate [Imdur -] 30 mg PO DAILY 03/03/19 Sitagliptin Phosphate [Januvia] 25 mg PO DAILY 03/03/19 Microbiology 03/07/19 11:00 Pleural Fluid AFB Smear Concentration - Preliminary 03/07/19 11:00 Pleural Fluid Mycobacterial Culture - Preliminary 03/07/19 11:00 Pleural Fluid Gram Stain - Final 03/07/19 11:00 Pleural Fluid Body Fluid Culture - Final NO GROWTH OF AEROBIC ORGANISMS AFTER 48 HOURS INCUBATION 03/07/19 11:00 Pleural Fluid Anaerobic Culture - Final NO ANAEROBES WERE ISOLATED 03/03/19 22:00 Blood - Peripheral Venous Blood Culture - Final NO GROWTH AFTER 5 DAYS INCUBATION 03/03/19 12:35 Blood - Peripheral Venous Blood Culture - Final NO GROWTH AFTER 5 DAYS INCUBATION 03/07/19 11:00 Pleural Fluid GIOVANNI Preparation - Preliminary 03/07/19 11:00 Pleural Fluid Fungal Culture - Preliminary 03/03/19 21:00 Urine - Urine Clean Catch Urine Culture - Final NO GROWTH OBTAINED ASSESSMENT/PLAN: 83 yof with PMHx of CAD, s/p PCI, CABG (2003), DCHF, Afib on coumadin, HTN, NIDDM, Hyperlipidemia, chronic right sided pleural effusions s/p thoracocentesis , diverticulosis, gastritis, chronic anemia, RESTREPO with cirrhosis, and anxiety, admitted with CHF 01/2019, admitted with near syncope, hypotension -Near syncope, suspected hypovolumic hypotension -Chronic diastolic heart failure - Anemia with constipation/gastritis -Afib with RVr -Chronic bilateral pleural effusions, R>L, s/p right thoracocentesis 1.5 bloody fluid 03/07 -Urinary retention, suspect from poor mobility+/- constipation -CAD s/p PCI, CABG 2013 -HTN -HLD -NIDDM -RESTREPO with cirrhosis -Pulmonary nodules Plan: Initially on IVF, stopped given progressive volume overload, lasix resumed. Recurrent near syncopal event 03/07. S/p 12 hours of gentle hydration. BP stable, no further dizziness. Start lasix at 40 mg daily and titrate per BP and volume status. Repeat CXR today. Encourage OOB, straight cath prn, avoid chacon for now. COntinue to hold imdur/losartan. Will need to address midodrine with lasix if recurrent orthostatic hypotension and worsening volume overload. Continue metoprolol/ranexa. Follow up pleural fluid cytology( sent, confirmed with lab). Exudative suspect from chronic nature of CHF and bloody could from Ac. Coumadin d/hiral, s/p vitamin K. INR improved. Continue xarelto. Dispo plan for SNF when clinically improved PT eval noted. Discussed with patient and nursing, all questions answered. Visit type - Emergency Visit Emergency Visit: Yes ED Registration Date: 03/03/19 Care time: The patient presented to the Emergency Department on the above date and was hospitalized for further evaluation of their emergent condition. - New Patient This patient is new to me today: No - Critical Care Critical Care patient: No - Discharge Referral Referred to [facility] No
[2019-03-10] MEDS ORDERED: FUROSEMIDE 40 MG/4 ML INJECTABLE VIAL IVPUSH ONE (12:04)
--- NOTE | 2019-03-10 13:31 | PN ---
Progress Note (short form) - Note Progress Note: Breathing continues to improve after right thoracentesis. No acute events overnight. Intake & Output 03/07/19 03/08/19 03/09/19 03/10/19 23:59 23:59 23:59 23:59 Intake Total 950 1200 850 100 Output Total 1550 Balance 950 1200 -700 100 Last Vital Signs Temp Pulse Resp BP Pulse Ox 97.9 F 106 H 19 111/60 97 03/10/19 10:00 03/10/19 10:00 03/10/19 10:00 03/10/19 10:00 03/09/19 21:00 Active Medications Acetaminophen (Tylenol -) 650 mg PO Q4H PRN PRN Reason: FEVER Albuterol/Ipratropium (Duoneb -) 1 amp NEB RTID [facility] Last Admin: 03/10/19 07:25 Dose: 1 amp Amiodarone HCl (Cordarone -) 200 mg PO DAILY [facility] Last Admin: 03/10/19 10:30 Dose: 200 mg Atorvastatin Calcium (Lipitor -) 80 mg PO HS [facility] Last Admin: 03/09/19 21:21 Dose: 80 mg Cyanocobalamin (Vitamin B12 -) 1,000 mcg PO DAILY [facility] Last Admin: 03/10/19 10:30 Dose: 1,000 mcg Diltiazem HCl (Cardizem Injection -) 10 mg IVPUSH Q4H PRN PRN Reason: TACHYCARDIA Last Admin: 03/07/19 15:49 Dose: 10 mg Docusate Sodium (Colace -) 100 mg PO BID [facility] Last Admin: 03/10/19 10:30 Dose: 100 mg Folic Acid (Folic Acid -) 1 mg PO DAILY [facility] Last Admin: 03/10/19 10:30 Dose: 1 mg Furosemide (Lasix Injection -) 40 mg IVPUSH DAILY [facility] Insulin Aspart (Novolog Vial Sliding Scale -) 1 vial SQ ACHS [facility]; Protocol Last Admin: 03/10/19 11:24 Dose: 2 units Metoprolol Succinate (Toprol Xl -) 100 mg PO BID [facility] Last Admin: 03/10/19 10:30 Dose: 100 mg Mometasone Furoate (Asmanex 220mcg -) 1 puff IH BID [facility] Last Admin: 03/10/19 10:31 Dose: 1 puff Polyethylene Glycol (Miralax (For Daily Use) -) 17 gm PO BID [facility] Last Admin: 03/10/19 10:31 Dose: 17 gm Ranolazine (Ranexa -) 500 mg PO BID [facility] Last Admin: 03/10/19 10:29 Dose: 500 mg Rivaroxaban (Xarelto) 15 mg PO DAILY@1800 [facility] Last Admin: 03/09/19 17:33 Dose: 15 mg Vitamin E (Vitamin E -) 400 unit PO DAILY [facility] Last Admin: 03/10/19 11:24 Dose: 400 unit Gen: NAD at rest Heart: RRR Lung: decreased breath sounds at the bases Abd: soft, nontender Ext: no edema Laboratory Results - last 24 hr 03/09/19 03/09/19 03/10/19 16:20 21:17 05:35 WBC RBC Hgb Hct MCV MCH MCHC RDW Plt Count MPV Absolute Neuts (auto) Neutrophils % Lymphocytes % Monocytes % Eosinophils % Basophils % Nucleated RBC % Sodium Potassium Chloride Carbon Dioxide Anion Gap BUN Creatinine Est GFR (CKD-EPI)AfAm Est GFR (CKD-EPI)NonAf POC Glucometer 141 152 127 Random Glucose Calcium Phosphorus Magnesium Total Bilirubin AST ALT Alkaline Phosphatase Total Protein Albumin 03/10/19 03/10/19 03/10/19 07:12 07:12 11:23 WBC 5.8 RBC 3.23 L Hgb 10.2 L Hct 29.6 L MCV 91.7 MCH 31.4 MCHC 34.3 RDW 16.9 H Plt Count 322 MPV 8.3 Absolute Neuts (auto) 4.6 Neutrophils % 79.0 Lymphocytes % 10.7 Monocytes % 7.5 Eosinophils % 2.3 Basophils % 0.5 Nucleated RBC % 0 Sodium 137 Potassium 3.8 Chloride 99 Carbon Dioxide 31 Anion Gap 6 L BUN 31.0 H Creatinine 1.4 H Est GFR (CKD-EPI)AfAm 39.61 Est GFR (CKD-EPI)NonAf 34.18 POC Glucometer 184 Random Glucose 149 H Calcium 9.0 Phosphorus 3.0 Magnesium 2.2 Total Bilirubin 0.6 AST 18 ALT 25 Alkaline Phosphatase 102 Total Protein 6.2 L Albumin 2.6 L A/P Acute on Chronic Diastolic Heart Failure Paroxysmal Atrial Fibrillation Pleural Effusions s/p R thoracentesis: Exudative by protein criteria CAD s/p CABG COPD Acute on Chronic Renal Failure HTN DM Hyperlipidemia RESTREPO/Liver Cirrhois - continue lasix - monitor urine output, creatinine - f/u pending pleural fluid studies - inhaled bronchodilators - O2 to keep Spo2 >90% - rate control - continue anticoagulation Dr Resendiz
[2019-03-10] MEDS ORDERED: SODIUM CHLORIDE 250 ML IV STA (16:55)
[2019-03-10] MEDS: RIVAROXABAN 15 MG TABLET PO SCH (18:58)
[2019-03-10] MEDS: ATORVASTATIN CA 80 MG TABLET (FP) PO SCH (21:25)
[2019-03-11] MEDS: INSULIN SLIDING SCALE (NOVOLOG) 1 VIAL SQ SCH ×4 (06:50→22:34)
[2019-03-11] MEDS: ALBUTEROL SO4 2.5/IPRATROPIUM 0.5 INH SOL 3 ML VIAL.NEB. NEB SCH ×3 (07:25→20:48)
[2019-03-11 07:41] LABS: BASO % 0.5 % (0-2.0); EOS % 2.5 % (0-4.5); HEMATOCRIT 30.1 % (32.4-45.2); HEMOGLOBIN 10.2 GM/dL (10.7-15.3); MCH 31.2 pg (25.7-33.7); MCHC 33.9 g/dl (32.0-36.0); MEAN PLT VOLUME 8.6 fl (7.5-11.1); PLATELET COUNT 339 K/MM3 (134-434); RBC 3.27 M/mm3 (3.60-5.2); RDW 16.9 % (11.6-15.6); WHITE BLOOD COUNT 6.6 K/mm3 (4.0-10.0)
[2019-03-11 08:02] LABS: ALBUMIN 2.6 g/dl (3.4-5.0); BILIRUBIN,TOTAL 0.9 mg/dL (0.2-1); BLOOD UREA NITROGEN 32.6 mg/dL (7-18); CALCIUM 9.5 mg/dL (8.5-10.1); CREATININE 1.4 mg/dL (0.55-1.3); MAGNESIUM 2.3 mg/dL (1.8-2.4); PHOSPHOROUS 3.3 mg/dL (2.5-4.9); POTASSIUM 4.1 mmol/L (3.5-5.1)
[2019-03-11] MEDS ORDERED: PT OWN MED DRAWER 7, Y5N ONE ×2 (09:21→17:34)
[2019-03-11] MEDS: DOCUSATE SODIUM 100 MG CAPSULE (FP) PO SCH ×2 (09:24→22:35)
[2019-03-11] MEDS: MOMETASONE FUROATE 220 MCG/IH INHALER IH SCH ×2 (09:24→22:36)
[2019-03-11] MEDS: FOLIC ACID 1 MG TABLET (FP) PO SCH (09:24)
[2019-03-11] MEDS: AMIODARONE HCL 200 MG TABLET (FP) PO SCH (09:24)
[2019-03-11] MEDS: CYANOCOBALAMIN 1,000 MCG TABLET (FP) PO SCH (09:24)
[2019-03-11] MEDS: RANOLAZINE E.R. 500 MG TABLET (FP) PO SCH ×2 (09:24→22:35)
[2019-03-11] MEDS: VITAMIN E 400 INTERNATIONAL-UNITS CAPSULE (FP) PO SCH (09:25)
[2019-03-11] MEDS: POLYETHYLENE GLYCOL 3350 119 GM BTL PO SCH ×2 (09:25→22:35)
--- NOTE | 2019-03-11 09:57 | PN ---
Progress Note, Physician Chief Complaint: Events noted Post thoracentesis Still with RVR History of Present Illness: Patient was seen and examined. Awake and alert. Chart was reviewed Denies chest pain or SOB ?orthostasis - Current Medication List Current Medications: Active Medications Acetaminophen (Tylenol -) 650 mg PO Q4H PRN PRN Reason: FEVER Albuterol/Ipratropium (Duoneb -) 1 amp NEB RTID [facility] Last Admin: 03/11/19 07:25 Dose: 1 amp Amiodarone HCl (Cordarone -) 200 mg PO DAILY [facility] Last Admin: 03/11/19 09:24 Dose: 200 mg Atorvastatin Calcium (Lipitor -) 80 mg PO HS [facility] Last Admin: 03/10/19 21:25 Dose: 80 mg Cyanocobalamin (Vitamin B12 -) 1,000 mcg PO DAILY [facility] Last Admin: 03/11/19 09:24 Dose: 1,000 mcg Diltiazem HCl (Cardizem Injection -) 10 mg IVPUSH Q4H PRN PRN Reason: TACHYCARDIA Last Admin: 03/07/19 15:49 Dose: 10 mg Docusate Sodium (Colace -) 100 mg PO BID [facility] Last Admin: 03/11/19 09:24 Dose: 100 mg Folic Acid (Folic Acid -) 1 mg PO DAILY [facility] Last Admin: 03/11/19 09:24 Dose: 1 mg Furosemide (Lasix Injection -) 40 mg IVPUSH DAILY [facility] Insulin Aspart (Novolog Vial Sliding Scale -) 1 vial SQ ACHS [facility]; Protocol Last Admin: 03/11/19 06:50 Dose: Not Given Metoprolol Succinate (Toprol Xl -) 100 mg PO BID [facility] Last Admin: 03/11/19 09:24 Dose: 100 mg Mometasone Furoate (Asmanex 220mcg -) 1 puff IH BID [facility] Last Admin: 03/11/19 09:24 Dose: 1 puff Polyethylene Glycol (Miralax (For Daily Use) -) 17 gm PO BID [facility] Last Admin: 03/11/19 09:25 Dose: 17 gm Ranolazine (Ranexa -) 500 mg PO BID [facility] Last Admin: 03/11/19 09:24 Dose: 500 mg Rivaroxaban (Xarelto) 15 mg PO DAILY@1800 [facility] Last Admin: 03/10/19 18:58 Dose: 15 mg Vitamin E (Vitamin E -) 400 unit PO DAILY [facility]ENNY Last Admin: 03/11/19 09:25 Dose: 400 unit - Objective Vital Signs: Vital Signs Temperature 97.6 F 03/11/19 08:41 Pulse Rate 115 H 03/11/19 08:41 Respiratory Rate 19 03/11/19 08:41 Blood Pressure 114/64 03/11/19 08:41 O2 Sat by Pulse Oximetry (%) 96 03/10/19 21:00 Eyes: Yes: PERRL HENT: Yes: Atraumatic Neck: Yes: Supple Cardiovascular: Yes: Tachycardia, Pulse Irregular, S1, S2 Respiratory: Yes: Diminished Gastrointestinal: Yes: Normal Bowel Sounds, Soft. No: Tenderness Edema: No Additional Findings/Remarks: - Review of Systems Constitutional: reports: Weakness. denies: Chills, Fever Cardiovascular: denies: Palpitations, Shortness of Breath. denies: Chest Pain Respiratory: denies: Cough, Hemoptysis, Orthopnea, PND Gastrointestinal: denies: Abdominal Pain, Constipation, Diarrhea, Melena, Nausea , Rectal Bleeding, Vomiting Genitourinary: denies: Dysuria Neurological: denies: Dizziness, Headache, Seizure, Syncope Labs: CBC, BMP 03/11/19 06:45 03/11/19 06:45 Problem List - Problems (1) Abnormal TSH Code(s): R79.89 - OTHER SPECIFIED ABNORMAL FINDINGS OF BLOOD CHEMISTRY (2) Anemia Code(s): D64.9 - ANEMIA, UNSPECIFIED Qualifiers: Anemia type: unspecified type Qualified Code(s): D64.9 - Anemia, unspecified (3) CKD (chronic kidney disease) Code(s): N18.9 - CHRONIC KIDNEY DISEASE, UNSPECIFIED (4) Chronic atrial fibrillation Code(s): I48.2 - CHRONIC ATRIAL FIBRILLATION (5) Cirrhosis of liver not due to alcohol Code(s): K74.60 - UNSPECIFIED CIRRHOSIS OF LIVER (6) Mesenteric mass Code(s): K63.89 - OTHER SPECIFIED DISEASES OF INTESTINE (7) [id number] kidney injury Code(s): N17.9 - ACUTE KIDNEY FAILURE, UNSPECIFIED; N18.9 - CHRONIC KIDNEY DISEASE, UNSPECIFIED Qualifiers: Chronic kidney disease stage: stage 2 (mild) (8) CHF (congestive heart failure) Code(s): I50.9 - HEART FAILURE, UNSPECIFIED Qualifiers: Heart failure type: diastolic Heart failure chronicity: chronic Qualified Code(s): I50.32 - Chronic diastolic (congestive) heart failure (9) Diabetes Code(s): E11.9 - TYPE 2 DIABETES MELLITUS WITHOUT COMPLICATIONS Qualifiers: Diabetes mellitus type: type 2 Diabetes mellitus penitentiary insulin use: without penitentiary use (10) Hx of CABG Code(s): Z95.1 - PRESENCE OF AORTOCORONARY BYPASS GRAFT (11) Hyperlipidemia Code(s): E78.5 - HYPERLIPIDEMIA, UNSPECIFIED Qualifiers: Hyperlipidemia type: pure hypercholesterolemia Qualified Code(s): E78.00 - Pure hypercholesterolemia, unspecified; E78.0 - Pure hypercholesterolemia (12) Hypertension Code(s): I10 - ESSENTIAL (PRIMARY) HYPERTENSION Qualifiers: Hypertension type: essential hypertension Qualified Code(s): I10 - Essential (primary) hypertension (13) Paroxysmal atrial fibrillation with rapid ventricular response Code(s): I48.0 - PAROXYSMAL ATRIAL FIBRILLATION Assessment/Plan 1. Weakness, fatigue, positional near syncope due to hypovolemic hypotension 2. Chronic anemia with history of diverticulosis and gastritis 3. Acute on chronic diastolic heart failure and bilateral pleural effusions (R>L ) post thoracentesis 4. Paroxysmal AF with RVR 5. CAD s/p CABG, PCI, angina 6. Type 2 DM 7. Hyperlipidemia 8. Acute on CKD pre-renal improving 9. HTN 10. RESTREPO with cirrhosis, cholelithiasis 11. 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 Abnormal TSH, ? sick euthyroid vs Amiodarone effects PLAN: 1. Lasix 40 mg QD(currently ? IV but may switch to PO) with monitoring renal recovery and electrolytes, f/u pleural fluid studies 2. Continue renal-dosed Xarelto 15 mg QD 3. Continue Toprol XL 100 mg BID 4. Continue Ranexa 500 mg BID, Amiodarone 200 mg QD, Lipitor 80 mg QD and eventually Vascepa 2 mg BID 5. Bronchodilator and O2 as needed 6. CT with contrast when renal function permits to assess status of mesenteric mass and exclude other occult neoplasm ? hepatoma 7. Follow up with Dr. Sage upon discharge 8. Monitor orthostasis Further plans are to follow. Treatment of volume overload and orthostasis is problematic Jose Raul Brannon MD
[2019-03-11] MEDS ORDERED: FUROSEMIDE 40 MG/4 ML INJECTABLE VIAL IVPUSH SCH (10:00)
--- NOTE | 2019-03-11 11:51 | PN ---
Physical Exam: SUBJECTIVE: Patient seen and examined, overall unchanged,. Had some dizziness while on the commode yesterday. no palpitations. OBJECTIVE: Vital Signs Period Temp Pulse Resp BP Sys/Cortes Pulse Ox Last 24 Hr 97.5 F-98.6 F 71-122 16-20 79-119/43-83 96 Intake & Output 03/08/19 03/09/19 03/10/19 03/11/19 23:59 23:59 23:59 23:59 Intake Total 1200 850 580 180 Output Total 1550 1000 500 Balance 1200 -700 -420 -320 Weight 152 lb GENERAL: sitting in bed in no acute distress Chest: decreased breath sounds bilateral bases, R>L, few scattered rales Neck: soft, supple, neck vein distension CVS:S1S2 irregular Abdomen:Soft, NT, ND, pos bowel sounds Extremities: 1+ pedal pitting edema Psych: pleasant, co-operative Laboratory Results - last 24 hr 03/07/19 03/10/19 03/10/19 11:00 16:52 21:24 WBC RBC Hgb Hct MCV MCH MCHC RDW Plt Count MPV Absolute Neuts (auto) Neutrophils % Lymphocytes % Monocytes % Eosinophils % Basophils % Nucleated RBC % Sodium Potassium Chloride Carbon Dioxide Anion Gap BUN Creatinine Est GFR (CKD-EPI)AfAm Est GFR (CKD-EPI)NonAf POC Glucometer 165 133 Random Glucose Calcium Phosphorus Magnesium Total Bilirubin AST ALT Alkaline Phosphatase Total Protein Albumin Fluid Cholesterol 44 03/11/19 03/11/19 03/11/19 06:45 06:45 06:46 WBC 6.6 RBC 3.27 L Hgb 10.2 L Hct 30.1 L MCV 92.0 MCH 31.2 MCHC 33.9 RDW 16.9 H Plt Count 339 MPV 8.6 Absolute Neuts (auto) 5.2 Neutrophils % 78.0 Lymphocytes % 10.0 Monocytes % 9.0 Eosinophils % 2.5 Basophils % 0.5 Nucleated RBC % 0 Sodium 139 Potassium 4.1 Chloride 99 Carbon Dioxide 33 H Anion Gap 7 L BUN 32.6 H Creatinine 1.4 H Est GFR (CKD-EPI)AfAm 39.61 Est GFR (CKD-EPI)NonAf 34.18 POC Glucometer 140 Random Glucose 133 H Calcium 9.5 Phosphorus 3.3 Magnesium 2.3 Total Bilirubin 0.9 AST 20 ALT 25 Alkaline Phosphatase 103 Total Protein 6.0 L Albumin 2.6 L Fluid Cholesterol 03/11/19 11:41 WBC RBC Hgb Hct MCV MCH MCHC RDW Plt Count MPV Absolute Neuts (auto) Neutrophils % Lymphocytes % Monocytes % Eosinophils % Basophils % Nucleated RBC % Sodium Potassium Chloride Carbon Dioxide Anion Gap BUN Creatinine Est GFR (CKD-EPI)AfAm Est GFR (CKD-EPI)NonAf POC Glucometer 174 Random Glucose Calcium Phosphorus Magnesium Total Bilirubin AST ALT Alkaline Phosphatase Total Protein Albumin Fluid Cholesterol Active Medications Generic Name Dose Route Start Last Admin Trade Name Freq PRN Reason Stop Dose Admin Acetaminophen 650 mg 03/03/19 14:52 Tylenol - PO Q4H PRN FEVER Albuterol/Ipratropium 1 amp 03/05/19 14:00 03/11/19 07:25 Duoneb - NEB 1 amp RTID JENNY Administration Amiodarone HCl 200 mg 03/04/19 10:00 03/11/19 09:24 Cordarone - PO 200 mg DAILY JENNY Administration Atorvastatin Calcium 80 mg 03/03/19 22:00 03/10/19 21:25 Lipitor - PO 80 mg HS JENNY Administration Cyanocobalamin 1,000 mcg 03/04/19 10:00 03/11/19 09:24 Vitamin B12 - PO 1,000 mcg DAILY JENNY Administration Diltiazem HCl 10 mg 03/07/19 15:27 03/07/19 15:49 Cardizem Injection - IVPUSH 10 mg Q4H PRN Administration TACHYCARDIA Docusate Sodium 100 mg 03/04/19 22:00 03/11/19 09:24 Colace - PO 100 mg BID JENNY Administration Folic Acid 1 mg 03/04/19 10:00 03/11/19 09:24 Folic Acid - PO 1 mg DAILY JENNY Administration Furosemide 40 mg 03/11/19 10:00 03/11/19 10:39 Lasix Injection - IVPUSH 40 mg DAILY JENNY Administration Insulin Aspart 1 vial 03/03/19 16:30 03/11/19 11:44 Novolog Vial Sliding Scale - SQ 2 units ACHS JENNY Administration Protocol Metoprolol Succinate 100 mg 03/06/19 22:00 03/11/19 09:24 Toprol Xl - PO 100 mg BID JENNY Administration Mometasone Furoate 1 puff 03/03/19 22:00 03/11/19 09:24 Asmanex 220mcg - IH 1 puff BID JENNY Administration Polyethylene Glycol 17 gm 03/03/19 22:00 03/11/19 09:25 Miralax (For Daily Use) - PO 17 gm BID JENNY Administration Ranolazine 500 mg 03/03/19 22:00 03/11/19 09:24 Ranexa - PO 500 mg BID JENNY Administration Rivaroxaban 15 mg 03/06/19 18:00 03/10/19 18:58 Xarelto PO 15 mg DAILY@1800 JENNY Administration Vitamin E 400 unit 03/04/19 10:00 03/11/19 09:25 Vitamin E - PO 400 unit DAILY JENNY Administration Microbiology 03/07/19 11:00 Pleural Fluid AFB Smear Concentration - Final 03/07/19 11:00 Pleural Fluid Mycobacterial Culture - Preliminary 03/07/19 11:00 Pleural Fluid Gram Stain - Final 03/07/19 11:00 Pleural Fluid Body Fluid Culture - Final NO GROWTH OF AEROBIC ORGANISMS AFTER 48 HOURS INCUBATION 03/07/19 11:00 Pleural Fluid Anaerobic Culture - Final NO ANAEROBES WERE ISOLATED 03/03/19 22:00 Blood - Peripheral Venous Blood Culture - Final NO GROWTH AFTER 5 DAYS INCUBATION 03/03/19 12:35 Blood - Peripheral Venous Blood Culture - Final NO GROWTH AFTER 5 DAYS INCUBATION 03/07/19 11:00 Pleural Fluid GIOVANNI Preparation - Preliminary 03/07/19 11:00 Pleural Fluid Fungal Culture - Preliminary 03/03/19 21:00 Urine - Urine Clean Catch Urine Culture - Final NO GROWTH OBTAINED CXR from 03/10/2019 noted ASSESSMENT/PLAN: 83 yof with PMHx of CAD, s/p PCI, CABG (2003), DCHF, Afib on coumadin, HTN, NIDDM, Hyperlipidemia, chronic right sided pleural effusions s/p thoracocentesis , diverticulosis, gastritis, chronic anemia, RESTREPO with cirrhosis, and anxiety, admitted with CHF 01/2019, admitted with near syncope, hypotension -Near syncope, suspected hypovolumic hypotension -Chronic diastolic heart failure -Anemia with constipation/gastritis -Afib with RVr -Chronic bilateral pleural effusions, R>L, s/p right thoracocentesis 1.5 bloody fluid 03/07 -Urinary retention, suspect from poor mobility+/- constipation -CAD s/p PCI, CABG 2013 -HTN -HLD -NIDDM -RESTREPO with cirrhosis -Pulmonary nodules Plan: recurrent pleural effusion. Volume status difficult to manage given ongoing concerning orthostatic hypotension. Serial CXR Monitoring. Lasix 40 mg IV daily with close monitoring. trial with low dose midodrine while upright and monitor closely for supine HTN Sharp placement, strict I/Os. Continue to hold imdur/losartan. Continue metoprolol/ranexa. Follow up pleural fluid cytology( sent, confirmed with lab). Exudative suspect from chronic nature of CHF and bloody could from Ac. Coumadin d/hiral, s/p vitamin K. INR improved. Continue xarelto. Dispo plan for SNF when clinically improved PT eval noted. Discussed with patient and nursing, all questions answered. Visit type - Emergency Visit Emergency Visit: Yes ED Registration Date: 03/03/19 Care time: The patient presented to the Emergency Department on the above date and was hospitalized for further evaluation of their emergent condition. - New Patient This patient is new to me today: No - Critical Care Critical Care patient: No - Discharge Referral Referred to [facility] Med [facility] No
--- NOTE | 2019-03-11 14:04 | PN ---
Progress Note (short form) - Note Progress Note: PULMONARY Breathing continues to slowly improve. Vital Signs Period Temp Pulse Resp BP Sys/Cortes Pulse Ox Last 24 Hr 97.5 F-98.3 F 71-122 16-20 79-120/43-83 96 Gen: NAD at rest Heart: RRR Lung: decreased breath sounds at the bases Abd: soft, nontender Ext: no edema CBC, BMP 03/11/19 06:45 03/11/19 06:45 Active Medications Acetaminophen (Tylenol -) 650 mg PO Q4H PRN PRN Reason: FEVER Albuterol/Ipratropium (Duoneb -) 1 amp NEB RTID [facility] Last Admin: 03/11/19 07:25 Dose: 1 amp Amiodarone HCl (Cordarone -) 200 mg PO DAILY [facility] Last Admin: 03/11/19 09:24 Dose: 200 mg Atorvastatin Calcium (Lipitor -) 80 mg PO HS [facility] Last Admin: 03/10/19 21:25 Dose: 80 mg Cyanocobalamin (Vitamin B12 -) 1,000 mcg PO DAILY [facility] Last Admin: 03/11/19 09:24 Dose: 1,000 mcg Diltiazem HCl (Cardizem Injection -) 10 mg IVPUSH Q4H PRN PRN Reason: TACHYCARDIA Last Admin: 03/07/19 15:49 Dose: 10 mg Docusate Sodium (Colace -) 100 mg PO BID [facility] Last Admin: 03/11/19 09:24 Dose: 100 mg Folic Acid (Folic Acid -) 1 mg PO DAILY [facility] Last Admin: 03/11/19 09:24 Dose: 1 mg Furosemide (Lasix Injection -) 40 mg IVPUSH DAILY [facility] Last Admin: 03/11/19 10:39 Dose: 40 mg Insulin Aspart (Novolog Vial Sliding Scale -) 1 vial SQ ACHS [facility]; Protocol Last Admin: 03/11/19 11:44 Dose: 2 units Metoprolol Succinate (Toprol Xl -) 100 mg PO BID [facility] Last Admin: 03/11/19 09:24 Dose: 100 mg Midodrine (Proamatine -) 2.5 mg PO BID-MID [facility] Mometasone Furoate (Asmanex 220mcg -) 1 puff IH BID [facility] Last Admin: 03/11/19 09:24 Dose: 1 puff Polyethylene Glycol (Miralax (For Daily Use) -) 17 gm PO BID [facility] Last Admin: 03/11/19 09:25 Dose: 17 gm Ranolazine (Ranexa -) 500 mg PO BID [facility] Last Admin: 03/11/19 09:24 Dose: 500 mg Rivaroxaban (Xarelto) 15 mg PO DAILY@1800 [facility] Last Admin: 03/10/19 18:58 Dose: 15 mg Vitamin E (Vitamin E -) 400 unit PO DAILY [facility] Last Admin: 03/11/19 09:25 Dose: 400 unit A/P Acute on Chronic Diastolic Heart Failure Paroxysmal Atrial Fibrillation Pleural Effusions s/p R thoracentesis CAD s/p CABG COPD Acute on Chronic Renal Failure HTN DM Hyperlipidemia RESTREPO/Liver Cirrhosis - continue lasix - monitor urine output, creatinine - f/u pleural fluid cytology - inhaled bronchodilators - O2 to keep Spo2 >90% - rate control - continue anticoagulation
[2019-03-11] MEDS: RIVAROXABAN 15 MG TABLET PO SCH (17:24)
[2019-03-11] MEDS ORDERED: MIDODRINE HCL 2.5 MG TABLET PO SCH (18:00)
[2019-03-11] MEDS: ATORVASTATIN CA 80 MG TABLET (FP) PO SCH (22:35)
[2019-03-12] MEDS: INSULIN SLIDING SCALE (NOVOLOG) 1 VIAL SQ SCH ×4 (06:08→22:03)
[2019-03-12 07:19] LABS: BASO % 0.7 % (0-2.0); EOS % 3.4 % (0-4.5); HEMATOCRIT 30.2 % (32.4-45.2); HEMOGLOBIN 10.1 GM/dL (10.7-15.3); LYMPH % 11.6 % (8-40); MCH 30.8 pg (25.7-33.7); MCHC 33.5 g/dl (32.0-36.0); MEAN CELL VOLUME 91.9 fl (80-96); MEAN PLT VOLUME 8.6 fl (7.5-11.1); MONO % 8.5 % (3.8-10.2); NEUT % 75.8 % (42.8-82.8); PLATELET COUNT 353 K/MM3 (134-434); RBC 3.29 M/mm3 (3.60-5.2); RDW 16.5 % (11.6-15.6); WHITE BLOOD COUNT 6.5 K/mm3 (4.0-10.0)
[2019-03-12 07:26] LABS: ALBUMIN 2.6 g/dl (3.4-5.0); BILIRUBIN,TOTAL 0.8 mg/dL (0.2-1); CALCIUM 9.5 mg/dL (8.5-10.1); CREATININE 1.4 mg/dL (0.55-1.3); MAGNESIUM 2.4 mg/dL (1.8-2.4); PHOSPHOROUS 3.3 mg/dL (2.5-4.9); POTASSIUM 4.1 mmol/L (3.5-5.1); TOT PROT 6.1 g/dl (6.4-8.2)
[2019-03-12] MEDS: ALBUTEROL SO4 2.5/IPRATROPIUM 0.5 INH SOL 3 ML VIAL.NEB. NEB SCH ×3 (08:39→19:54)
[2019-03-12] MEDS ORDERED: PT OWN MED DRAWER 7, Y5N ONE ×2 (08:56→17:23)
--- NOTE | 2019-03-12 09:12 | PN ---
Progress Note, Physician Chief Complaint: Events noted Post thoracentesis History of Present Illness: Patient was seen and examined. Awake and alert. Chart was reviewed Denies chest pain or SOB - Current Medication List Current Medications: Active Medications Acetaminophen (Tylenol -) 650 mg PO Q4H PRN PRN Reason: FEVER Albuterol/Ipratropium (Duoneb -) 1 amp NEB RTID [facility] Last Admin: 03/12/19 08:39 Dose: 1 amp Amiodarone HCl (Cordarone -) 200 mg PO DAILY [facility] Last Admin: 03/11/19 09:24 Dose: 200 mg Atorvastatin Calcium (Lipitor -) 80 mg PO HS [facility] Last Admin: 03/11/19 22:35 Dose: 80 mg Cyanocobalamin (Vitamin B12 -) 1,000 mcg PO DAILY [facility] Last Admin: 03/11/19 09:24 Dose: 1,000 mcg Diltiazem HCl (Cardizem Injection -) 10 mg IVPUSH Q4H PRN PRN Reason: TACHYCARDIA Last Admin: 03/07/19 15:49 Dose: 10 mg Docusate Sodium (Colace -) 100 mg PO BID [facility] Last Admin: 03/11/19 22:35 Dose: 100 mg Folic Acid (Folic Acid -) 1 mg PO DAILY [facility] Last Admin: 03/11/19 09:24 Dose: 1 mg Furosemide (Lasix Injection -) 20 mg IVPUSH DAILY [facility] Insulin Aspart (Novolog Vial Sliding Scale -) 1 vial SQ ACHS [facility]; Protocol Last Admin: 03/12/19 06:08 Dose: Not Given Metoprolol Succinate (Toprol Xl -) 100 mg PO BID [facility] Last Admin: 03/11/19 22:35 Dose: 100 mg Midodrine (Proamatine -) 5 mg PO BID-MID [facility] Mometasone Furoate (Asmanex 220mcg -) 1 puff IH BID [facility] Last Admin: 03/11/19 22:36 Dose: 1 puff Polyethylene Glycol (Miralax (For Daily Use) -) 17 gm PO BID [facility] Last Admin: 03/11/19 22:35 Dose: Not Given Ranolazine (Ranexa -) 500 mg PO BID [facility] Last Admin: 03/11/19 22:35 Dose: 500 mg Rivaroxaban (Xarelto) 15 mg PO DAILY@1800 [facility] Last Admin: 03/11/19 17:24 Dose: 15 mg Vitamin E (Vitamin E -) 400 unit PO DAILY [facility] Last Admin: 03/11/19 09:25 Dose: 400 unit - Objective Vital Signs: Vital Signs Temperature 98.0 F 03/12/19 06:00 Pulse Rate 108 H 03/12/19 06:00 Respiratory Rate 18 03/12/19 06:00 Blood Pressure 108/64 03/12/19 06:00 O2 Sat by Pulse Oximetry (%) 100 03/11/19 21:00 Eyes: Yes: PERRL HENT: Yes: Atraumatic Neck: Yes: Supple Cardiovascular: Yes: Pulse Irregular, S1, S2 Respiratory: Yes: CTA Bilaterally Gastrointestinal: Yes: Normal Bowel Sounds, Soft. No: Tenderness Edema: No Additional Findings/Remarks: - Review of Systems Constitutional: reports: Weakness. denies: Chills, Fever Cardiovascular: denies: Palpitations, Shortness of Breath. denies: Chest Pain Respiratory: denies: Cough, Hemoptysis, Orthopnea, PND Gastrointestinal: denies: Abdominal Pain, Constipation, Diarrhea, Melena, Nausea , Rectal Bleeding, Vomiting Genitourinary: denies: Dysuria Neurological: denies: Dizziness, Headache, Seizure, Syncope Labs: CBC, BMP 03/12/19 06:40 03/12/19 06:40 Problem List - Problems (1) Abnormal TSH Code(s): R79.89 - OTHER SPECIFIED ABNORMAL FINDINGS OF BLOOD CHEMISTRY (2) Anemia Code(s): D64.9 - ANEMIA, UNSPECIFIED Qualifiers: Anemia type: unspecified type Qualified Code(s): D64.9 - Anemia, unspecified (3) CKD (chronic kidney disease) Code(s): N18.9 - CHRONIC KIDNEY DISEASE, UNSPECIFIED (4) Chronic atrial fibrillation Code(s): I48.2 - CHRONIC ATRIAL FIBRILLATION (5) Cirrhosis of liver not due to alcohol Code(s): K74.60 - UNSPECIFIED CIRRHOSIS OF LIVER (6) Mesenteric mass Code(s): K63.89 - OTHER SPECIFIED DISEASES OF INTESTINE (7) [id number] kidney injury Code(s): N17.9 - ACUTE KIDNEY FAILURE, UNSPECIFIED; N18.9 - CHRONIC KIDNEY DISEASE, UNSPECIFIED Qualifiers: Chronic kidney disease stage: stage 2 (mild) (8) CHF (congestive heart failure) Code(s): I50.9 - HEART FAILURE, UNSPECIFIED Qualifiers: Heart failure type: diastolic Heart failure chronicity: chronic Qualified Code(s): I50.32 - Chronic diastolic (congestive) heart failure (9) Diabetes Code(s): E11.9 - TYPE 2 DIABETES MELLITUS WITHOUT COMPLICATIONS Qualifiers: Diabetes mellitus type: type 2 Diabetes mellitus residential insulin use: without residential use (10) Hx of CABG Code(s): Z95.1 - PRESENCE OF AORTOCORONARY BYPASS GRAFT (11) Hyperlipidemia Code(s): E78.5 - HYPERLIPIDEMIA, UNSPECIFIED Qualifiers: Hyperlipidemia type: pure hypercholesterolemia Qualified Code(s): E78.00 - Pure hypercholesterolemia, unspecified; E78.0 - Pure hypercholesterolemia (12) Hypertension Code(s): I10 - ESSENTIAL (PRIMARY) HYPERTENSION Qualifiers: Hypertension type: essential hypertension Qualified Code(s): I10 - Essential (primary) hypertension (13) Paroxysmal atrial fibrillation with rapid ventricular response Code(s): I48.0 - PAROXYSMAL ATRIAL FIBRILLATION Assessment/Plan 1. Weakness, fatigue, positional near syncope due to hypovolemic hypotension 2. Chronic anemia with history of diverticulosis and gastritis 3. Acute on chronic diastolic heart failure and bilateral pleural effusions (R>L ) post thoracentesis 4. Paroxysmal AF with RVR 5. CAD s/p CABG, PCI, angina 6. Type 2 DM 7. Hyperlipidemia 8. Acute on CKD pre-renal improving 9. HTN 10. RESTREPO with cirrhosis, cholelithiasis 11. 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 Abnormal TSH, ? sick euthyroid vs Amiodarone effects PLAN: 1. Lasix (currently ? IV but may switch to PO) with monitoring renal recovery and electrolytes 2. Continue renal-dosed Xarelto 15 mg QD 3. Continue Toprol XL 100 mg BID 4. Continue Ranexa 500 mg BID, Amiodarone 200 mg QD, Lipitor 80 mg QD and eventually Vascepa 2 mg BID 5. Bronchodilator and O2 as needed 6. CT with contrast when renal function permits to assess status of mesenteric mass and exclude other occult neoplasm ? hepatoma 7. Follow up with Dr. Sage upon discharge 8. Monitor orthostasis Further plans are to follow. Jose Raul Brannon MD
[2019-03-12] MEDS: MOMETASONE FUROATE 220 MCG/IH INHALER IH SCH ×2 (09:27→22:03)
[2019-03-12] MEDS: DOCUSATE SODIUM 100 MG CAPSULE (FP) PO SCH ×2 (09:27→22:02)
[2019-03-12] MEDS: FOLIC ACID 1 MG TABLET (FP) PO SCH (09:27)
[2019-03-12] MEDS: FUROSEMIDE 40 MG/4 ML INJECTABLE VIAL IVPUSH SCH (09:27)
[2019-03-12] MEDS: AMIODARONE HCL 200 MG TABLET (FP) PO SCH (09:27)
[2019-03-12] MEDS: CYANOCOBALAMIN 1,000 MCG TABLET (FP) PO SCH (09:27)
[2019-03-12] MEDS: VITAMIN E 400 INTERNATIONAL-UNITS CAPSULE (FP) PO SCH (09:28)
[2019-03-12] MEDS: MIDODRINE HCL 5 MG TABLET PO SCH ×2 (09:28→18:07)
[2019-03-12] MEDS: RANOLAZINE E.R. 500 MG TABLET (FP) PO SCH ×2 (09:28→22:02)
[2019-03-12] MEDS: POLYETHYLENE GLYCOL 3350 119 GM BTL PO SCH ×2 (09:29→22:02)
--- NOTE | 2019-03-12 10:42 | PN ---
Physical Exam: SUBJECTIVE: Patient seen and examined, denies any further dizziness. Breathing overall improved. No chest pain, palpitations, or concerns otherwise. OBJECTIVE: Vital Signs Period Temp Pulse Resp BP Sys/Cortes Pulse Ox Last 24 Hr 97.6 F-98.8 F 99-111 16-19 53-120/23-64 100 Intake & Output 03/09/19 03/10/19 03/11/19 03/12/19 23:59 23:59 23:59 23:59 Intake Total 850 580 670 Output Total 1550 1000 2000 400 Balance -700 -420 -1330 -400 Weight 152 lb 148 lb 4 oz GENERAL: sitting in bed in no acute distress Neck: soft, supple, improved neck vein distension CVS:S1S2 irregular Chest: Decreased breath sounds bilateral bases, R>L Abdomen:soft, NT, improved distension extremities: 1+ pedal edema Psych: pleasant, co-operative Laboratory Results - last 24 hr 03/11/19 03/11/19 03/11/19 11:41 16:45 22:33 WBC RBC Hgb Hct MCV MCH MCHC RDW Plt Count MPV Absolute Neuts (auto) Neutrophils % Lymphocytes % Monocytes % Eosinophils % Basophils % Nucleated RBC % Sodium Potassium Chloride Carbon Dioxide Anion Gap BUN Creatinine Est GFR (CKD-EPI)AfAm Est GFR (CKD-EPI)NonAf POC Glucometer 174 148 151 Random Glucose Calcium Phosphorus Magnesium Total Bilirubin AST ALT Alkaline Phosphatase Total Protein Albumin 03/12/19 03/12/19 03/12/19 05:31 06:40 06:40 WBC 6.5 RBC 3.29 L Hgb 10.1 L Hct 30.2 L MCV 91.9 MCH 30.8 MCHC 33.5 RDW 16.5 H Plt Count 353 MPV 8.6 Absolute Neuts (auto) 5.0 Neutrophils % 75.8 Lymphocytes % 11.6 Monocytes % 8.5 Eosinophils % 3.4 Basophils % 0.7 Nucleated RBC % 0 Sodium 137 Potassium 4.1 Chloride 98 Carbon Dioxide 34 H Anion Gap 5 L BUN 36.0 H Creatinine 1.4 H Est GFR (CKD-EPI)AfAm 39.61 Est GFR (CKD-EPI)NonAf 34.18 POC Glucometer 142 Random Glucose 146 H Calcium 9.5 Phosphorus 3.3 Magnesium 2.4 Total Bilirubin 0.8 AST 22 ALT 24 Alkaline Phosphatase 98 Total Protein 6.1 L Albumin 2.6 L Active Medications Generic Name Dose Route Start Last Admin Trade Name Freq PRN Reason Stop Dose Admin Acetaminophen 650 mg 03/03/19 14:52 Tylenol - PO Q4H PRN FEVER Albuterol/Ipratropium 1 amp 03/05/19 14:00 03/12/19 08:39 Duoneb - NEB 1 amp RTID JENNY Administration Amiodarone HCl 200 mg 03/04/19 10:00 03/12/19 09:27 Cordarone - PO 200 mg DAILY JENNY Administration Atorvastatin Calcium 80 mg 03/03/19 22:00 03/11/19 22:35 Lipitor - PO 80 mg HS JENNY Administration Cyanocobalamin 1,000 mcg 03/04/19 10:00 03/12/19 09:27 Vitamin B12 - PO 1,000 mcg DAILY JENNY Administration Diltiazem HCl 10 mg 03/07/19 15:27 03/07/19 15:49 Cardizem Injection - IVPUSH 10 mg Q4H PRN Administration TACHYCARDIA Docusate Sodium 100 mg 03/04/19 22:00 03/12/19 09:27 Colace - PO 100 mg BID JENNY Administration Folic Acid 1 mg 03/04/19 10:00 03/12/19 09:27 Folic Acid - PO 1 mg DAILY JENNY Administration Furosemide 20 mg 03/12/19 10:00 03/12/19 09:27 Lasix Injection - IVPUSH 20 mg DAILY JENNY Administration Insulin Aspart 1 vial 03/03/19 16:30 03/12/19 06:08 Novolog Vial Sliding Scale - SQ Not Given ACHS [facility] Protocol Metoprolol Succinate 100 mg 03/06/19 22:00 03/12/19 09:27 Toprol Xl - PO 100 mg BID JENNY Administration Midodrine 5 mg 03/12/19 10:00 03/12/19 09:28 Proamatine - PO 5 mg BID-MID JENNY Administration Mometasone Furoate 1 puff 03/03/19 22:00 03/12/19 09:27 Asmanex 220mcg - IH 1 puff BID JENNY Administration Polyethylene Glycol 17 gm 03/03/19 22:00 03/12/19 09:29 Miralax (For Daily Use) - PO 17 gm BID JENNY Administration Ranolazine 500 mg 03/03/19 22:00 03/12/19 09:28 Ranexa - PO 500 mg BID JENNY Administration Rivaroxaban 15 mg 03/06/19 18:00 03/11/19 17:24 Xarelto PO 15 mg DAILY@1800 JENNY Administration Vitamin E 400 unit 03/04/19 10:00 03/12/19 09:28 Vitamin E - PO 400 unit DAILY JENNY Administration Telemetry: Afib 80s-100s ASSESSMENT/PLAN: 83 yof with PMHx of CAD, s/p PCI, CABG (2003), DCHF, Afib on coumadin, HTN, NIDDM, Hyperlipidemia, chronic right sided pleural effusions s/p thoracocentesis , diverticulosis, gastritis, chronic anemia, RESTREPO with cirrhosis, and anxiety, admitted with CHF 01/2019, admitted with near syncope, hypotension -Near syncope, suspected hypovolumic hypotension -Chronic diastolic heart failure -Anemia with constipation/gastritis -Afib with RVr -Chronic bilateral pleural effusions, R>L, s/p right thoracocentesis 1.5 bloody fluid 03/07 -Urinary retention, suspect from poor mobility+/- constipation -CAD s/p PCI, CABG 2013 -HTN -HLD -NIDDM -RESTREPO with cirrhosis -Pulmonary nodules Plan: recurrent pleural effusion. Volume status difficult to manage given ongoing concerning orthostatic hypotension. SBP 50s sytolic sitting up 03/11. Low dose midodrine 5 mg BID while sitting, monitor BP. hopefully will assist in diuresis Lasix 40 mg IV daily as tolerated, strict I/os, daily weights. Sharp placed, continue for now, voiding trial once more ambulatory and volume status improved. repeat CXR Imdur/losartan d/hiral. Continue metoprolol/ranexa. Coumadin d/hiral, s/p vitamin K. INR improved. Continue xarelto. Dispo plan for SNF when clinically improved PT eval noted. Discussed with patient and nursing in detail, all questions answered. Visit type - Emergency Visit Emergency Visit: Yes ED Registration Date: 03/03/19 Care time: The patient presented to the Emergency Department on the above date and was hospitalized for further evaluation of their emergent condition. - New Patient This patient is new to me today: No - Critical Care Critical Care patient: No - Discharge Referral Referred to [facility] Med P.C.: No
--- NOTE | 2019-03-12 12:47 | PN ---
Progress Note (short form) - Note Progress Note: PULMONARY States breathing is better today. CXR still with bilateral effusions. Vital Signs Period Temp Pulse Resp BP Sys/Cortes Pulse Ox Last 24 Hr 97.6 F-98.8 F 94-111 16-19 53-130/23-71 95-100 Gen: NAD at rest Heart: RRR Lung: decreased breath sounds at the bases Abd: soft, nontender Ext: no edema CBC, BMP 03/12/19 06:40 03/12/19 06:40 Active Medications Acetaminophen (Tylenol -) 650 mg PO Q4H PRN PRN Reason: FEVER Albuterol/Ipratropium (Duoneb -) 1 amp NEB RTID [facility] Last Admin: 03/12/19 08:39 Dose: 1 amp Amiodarone HCl (Cordarone -) 200 mg PO DAILY [facility] Last Admin: 03/12/19 09:27 Dose: 200 mg Atorvastatin Calcium (Lipitor -) 80 mg PO HS [facility] Last Admin: 03/11/19 22:35 Dose: 80 mg Cyanocobalamin (Vitamin B12 -) 1,000 mcg PO DAILY [facility] Last Admin: 03/12/19 09:27 Dose: 1,000 mcg Diltiazem HCl (Cardizem Injection -) 10 mg IVPUSH Q4H PRN PRN Reason: TACHYCARDIA Last Admin: 03/07/19 15:49 Dose: 10 mg Docusate Sodium (Colace -) 100 mg PO BID [facility] Last Admin: 03/12/19 09:27 Dose: 100 mg Folic Acid (Folic Acid -) 1 mg PO DAILY [facility] Last Admin: 03/12/19 09:27 Dose: 1 mg Furosemide (Lasix Injection -) 20 mg IVPUSH DAILY [facility] Last Admin: 03/12/19 09:27 Dose: 20 mg Insulin Aspart (Novolog Vial Sliding Scale -) 1 vial SQ ACHS [facility]; Protocol Last Admin: 03/12/19 11:06 Dose: 4 units Metoprolol Succinate (Toprol Xl -) 100 mg PO BID [facility] Last Admin: 03/12/19 09:27 Dose: 100 mg Midodrine (Proamatine -) 5 mg PO BID-MID [facility] Last Admin: 03/12/19 09:28 Dose: 5 mg Mometasone Furoate (Asmanex 220mcg -) 1 puff IH BID [facility] Last Admin: 03/12/19 09:27 Dose: 1 puff Polyethylene Glycol (Miralax (For Daily Use) -) 17 gm PO BID [facility] Last Admin: 03/12/19 09:29 Dose: 17 gm Ranolazine (Ranexa -) 500 mg PO BID [facility] Last Admin: 03/12/19 09:28 Dose: 500 mg Rivaroxaban (Xarelto) 15 mg PO DAILY@1800 [facility] Last Admin: 03/11/19 17:24 Dose: 15 mg Vitamin E (Vitamin E -) 400 unit PO DAILY [facility] Last Admin: 03/12/19 09:28 Dose: 400 unit A/P Acute on Chronic Diastolic Heart Failure Paroxysmal Atrial Fibrillation Pleural Effusions s/p R thoracentesis CAD s/p CABG COPD Acute on Chronic Renal Failure HTN DM Hyperlipidemia RESTREPO/Liver Cirrhosis - continue lasix - monitor urine output, creatinine - f/u pleural fluid cytology - inhaled bronchodilators - O2 to keep Spo2 >90% - rate control - continue anticoagulation
[2019-03-12] MEDS: RIVAROXABAN 15 MG TABLET PO SCH (18:07)
[2019-03-12] MEDS: ATORVASTATIN CA 80 MG TABLET (FP) PO SCH (22:02)
[2019-03-13] MEDS: INSULIN SLIDING SCALE (NOVOLOG) 1 VIAL SQ SCH ×4 (06:00→21:51)
[2019-03-13 07:02] LABS: BLOOD UREA NITROGEN 34.7 mg/dL (7-18); CALCIUM 9.3 mg/dL (8.5-10.1); CREATININE 1.3 mg/dL (0.55-1.3); POTASSIUM 3.7 mmol/L (3.5-5.1)
[2019-03-13] MEDS: ALBUTEROL SO4 2.5/IPRATROPIUM 0.5 INH SOL 3 ML VIAL.NEB. NEB SCH ×3 (07:48→19:49)
--- NOTE | 2019-03-13 10:03 | PN ---
Progress Note, Physician History of Present Illness: Resting comfortably w/o dyspnea or orthopnea, afib remains rate-controlled after medication adjustments. - Current Medication List Current Medications: Active Medications Acetaminophen (Tylenol -) 650 mg PO Q4H PRN PRN Reason: FEVER Albuterol/Ipratropium (Duoneb -) 1 amp NEB RTID [facility] Last Admin: 03/13/19 07:48 Dose: 1 amp Amiodarone HCl (Cordarone -) 200 mg PO DAILY [facility] Last Admin: 03/12/19 09:27 Dose: 200 mg Atorvastatin Calcium (Lipitor -) 80 mg PO HS [facility] Last Admin: 03/12/19 22:02 Dose: 80 mg Cyanocobalamin (Vitamin B12 -) 1,000 mcg PO DAILY [facility] Last Admin: 03/12/19 09:27 Dose: 1,000 mcg Diltiazem HCl (Cardizem Injection -) 10 mg IVPUSH Q4H PRN PRN Reason: TACHYCARDIA Last Admin: 03/07/19 15:49 Dose: 10 mg Docusate Sodium (Colace -) 100 mg PO BID [facility] Last Admin: 03/12/19 22:02 Dose: 100 mg Folic Acid (Folic Acid -) 1 mg PO DAILY [facility] Last Admin: 03/12/19 09:27 Dose: 1 mg Furosemide (Lasix Injection -) 20 mg IVPUSH DAILY [facility] Last Admin: 03/12/19 09:27 Dose: 20 mg Insulin Aspart (Novolog Vial Sliding Scale -) 1 vial SQ ACHS [facility]; Protocol Last Admin: 03/13/19 06:00 Dose: Not Given Metoprolol Succinate (Toprol Xl -) 100 mg PO BID [facility] Last Admin: 03/12/19 22:02 Dose: 100 mg Midodrine (Proamatine -) 5 mg PO BID-MID [facility] Last Admin: 03/12/19 18:07 Dose: 5 mg Mometasone Furoate (Asmanex 220mcg -) 1 puff IH BID [facility] Last Admin: 03/12/19 22:03 Dose: 1 puff Polyethylene Glycol (Miralax (For Daily Use) -) 17 gm PO BID [facility] Last Admin: 03/12/19 22:02 Dose: Not Given Ranolazine (Ranexa -) 500 mg PO BID [facility] Last Admin: 03/12/19 22:02 Dose: 500 mg Rivaroxaban (Xarelto) 15 mg PO DAILY@1800 [facility] Last Admin: 03/12/19 18:07 Dose: 15 mg Vitamin E (Vitamin E -) 400 unit PO DAILY [facility] Last Admin: 03/12/19 09:28 Dose: 400 unit - Objective Vital Signs: Vital Signs Temperature 97.8 F 03/13/19 06:00 Pulse Rate 107 H 03/13/19 06:00 Respiratory Rate 19 03/13/19 06:00 Blood Pressure 112/73 03/13/19 06:00 O2 Sat by Pulse Oximetry (%) 97 03/12/19 21:00 Constitutional: Yes: No Distress, Calm Neck: Yes: Supple Cardiovascular: Yes: Pulse Irregular Respiratory: Yes: Regular, Diminished, On Nasal O2 Gastrointestinal: Yes: Normal Bowel Sounds, Soft Edema: No Labs: CBC, BMP 03/12/19 06:40 03/13/19 05:15 INR, PTT INR 1.18 (0.83-1.09) H 03/06/19 05:20 - ....Imaging EKG: Report Reviewed (Tele: Afib rate-controlled) Problem List - Problems (1) Abnormal TSH Code(s): R79.89 - OTHER SPECIFIED ABNORMAL FINDINGS OF BLOOD CHEMISTRY (2) Anemia Code(s): D64.9 - ANEMIA, UNSPECIFIED Qualifiers: Anemia type: unspecified type Qualified Code(s): D64.9 - Anemia, unspecified (3) Hypotension Code(s): I95.9 - HYPOTENSION, UNSPECIFIED Qualifiers: Hypotension type: hypotension due to hypovolemia Qualified Code(s): I95.89 - Other hypotension; E86.1 - Hypovolemia (4) Mesenteric mass Code(s): K63.89 - OTHER SPECIFIED DISEASES OF INTESTINE (5) Portal hypertensive gastropathy Code(s): K76.6 - PORTAL HYPERTENSION; K31.89 - OTHER DISEASES OF STOMACH AND DUODENUM (6) [id number] kidney injury Code(s): N17.9 - ACUTE KIDNEY FAILURE, UNSPECIFIED; N18.9 - CHRONIC KIDNEY DISEASE, UNSPECIFIED Qualifiers: Chronic kidney disease stage: stage 2 (mild) (7) CHF (congestive heart failure) Code(s): I50.9 - HEART FAILURE, UNSPECIFIED Qualifiers: Heart failure type: diastolic Heart failure chronicity: chronic Qualified Code(s): I50.32 - Chronic diastolic (congestive) heart failure (8) Hx of CABG Code(s): Z95.1 - PRESENCE OF AORTOCORONARY BYPASS GRAFT (9) Hyperlipidemia Code(s): E78.5 - HYPERLIPIDEMIA, UNSPECIFIED Qualifiers: Hyperlipidemia type: pure hypercholesterolemia Qualified Code(s): E78.00 - Pure hypercholesterolemia, unspecified; E78.0 - Pure hypercholesterolemia (10) Hypertension Code(s): I10 - ESSENTIAL (PRIMARY) HYPERTENSION Qualifiers: Hypertension type: essential hypertension Qualified Code(s): I10 - Essential (primary) hypertension (11) Paroxysmal atrial fibrillation with rapid ventricular response Code(s): I48.0 - PAROXYSMAL ATRIAL FIBRILLATION (12) Syncope, near Code(s): R55 - SYNCOPE AND COLLAPSE Assessment/Plan 02/02/2019 Chest CTA: No PE, increased bilateral pleural effusions R>L c/w pulm vascular congestion 02/01/2019 Lexiscan Myoview: No ischemia, LVEF 48% 02/02/2019 Echo: Mild cLVH normal LV and RV size and fxn, mild LAE, mild , tr TR RVSP 23 mmHg, pleural effusion 12/08/2018 Echo: cLVH with normal LVEF 65-70%, mild LAE 4.6 cm, mild CHILO, normal RV size and fxn, mild MR, mild-mod TR RVSP 31 mmHg 1. Weakness, fatigue, positional near syncope due to hypovolemic hypotension resolving 2. Chronic anemia with history of diverticulosis and gastritis 3. Acute on chronic diastolic heart failure and bilateral pleural effusions R>L post thoracentesis 4. Paroxysmal AF with RVR 5. CAD s/p CABG, PCI, angina 6. Type 2 DM 7. Hyperlipidemia 8. Acute on CKD pre-renal improving 9. HTN 10. RESTREPO with cirrhosis, cholelithiasis 11. 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 Abnormal TSH, ? sick euthyroid vs amio effects PLAN: 1. Resume Lasix 40 po qd with monitoring diuretic response, renal recovery and electrolytes 2. Continue renal-dosed Xarelto 15 qd w/o ASA 81 qd given stable CAD 3. Continue Toprol XL 100 mg BID. Started on midodrine 5 bid 4. Continue Ranexa 500 bid, amio 200 qd, Lipitor 80 qd, Vascepa 2 bid 5. Bronchodilator, O2 as needed 6. CT with contrast when renal function permits to assess status of mesenteric mass and exclude other occult neoplasm ? hepatoma 7. Follow up with Dr. Sage upon discharge
[2019-03-13] MEDS ORDERED: PT OWN MED DRAWER 7, Y5N ONE ×4 (10:14→17:05)
[2019-03-13] MEDS: FUROSEMIDE 40 MG/4 ML INJECTABLE VIAL IVPUSH SCH (10:44)
[2019-03-13] MEDS: CYANOCOBALAMIN 1,000 MCG TABLET (FP) PO SCH (10:45)
[2019-03-13] MEDS: FOLIC ACID 1 MG TABLET (FP) PO SCH (10:45)
[2019-03-13] MEDS: RANOLAZINE E.R. 500 MG TABLET (FP) PO SCH ×2 (10:46→21:51)
[2019-03-13] MEDS: VITAMIN E 400 INTERNATIONAL-UNITS CAPSULE (FP) PO SCH (10:46)
[2019-03-13] MEDS: AMIODARONE HCL 200 MG TABLET (FP) PO SCH (10:47)
[2019-03-13] MEDS: POLYETHYLENE GLYCOL 3350 119 GM BTL PO SCH ×2 (10:47→21:46)
[2019-03-13] MEDS: MOMETASONE FUROATE 220 MCG/IH INHALER IH SCH ×2 (10:48→21:50)
[2019-03-13] MEDS: MIDODRINE HCL 5 MG TABLET PO SCH ×2 (10:52→17:15)
[2019-03-13] MEDS: DOCUSATE SODIUM 100 MG CAPSULE (FP) PO SCH ×2 (10:57→21:46)
--- NOTE | 2019-03-13 10:58 | PN ---
Physical Exam: SUBJECTIVE: Patient seen and examined, positional dizziness improved. breathing improving, no complaints. Overall feels well. OBJECTIVE: Vital Signs Period Temp Pulse Resp BP Sys/Cortes Pulse Ox Last 24 Hr 97.4 F-98.5 F 94-119 18-20 80-128/47-74 97 GENERAL: sitting in bed in no acute distress Neck: soft, supple, improved neck vein distension CVS:S1S2 irregular Chest: Decreased breath sounds bilateral bases, R>L, few right basilar rales Abdomen:soft, NT, improved distension extremities: 1+ pedal edema Psych: pleasant, co-operative Laboratory Results - last 24 hr 03/12/19 03/12/19 03/12/19 11:03 16:44 22:02 Sodium Potassium Chloride Carbon Dioxide Anion Gap BUN Creatinine Est GFR (CKD-EPI)AfAm Est GFR (CKD-EPI)NonAf POC Glucometer 206 122 137 Random Glucose Calcium 03/13/19 03/13/19 05:15 05:45 Sodium 139 Potassium 3.7 Chloride 100 Carbon Dioxide 31 Anion Gap 8 BUN 34.7 H Creatinine 1.3 Est GFR (CKD-EPI)AfAm 43.32 Est GFR (CKD-EPI)NonAf 37.38 POC Glucometer 143 Random Glucose 127 H Calcium 9.3 Active Medications Generic Name Dose Route Start Last Admin Trade Name Freq PRN Reason Stop Dose Admin Acetaminophen 650 mg 03/03/19 14:52 Tylenol - PO Q4H PRN FEVER Albuterol/Ipratropium 1 amp 03/05/19 14:00 03/13/19 07:48 Duoneb - NEB 1 amp RTID JENNY Administration Amiodarone HCl 200 mg 03/04/19 10:00 03/12/19 09:27 Cordarone - PO 200 mg DAILY [facility] Administration Atorvastatin Calcium 80 mg 03/03/19 22:00 03/12/19 22:02 Lipitor - PO 80 mg HS JENNY Administration Cyanocobalamin 1,000 mcg 03/04/19 10:00 03/12/19 09:27 Vitamin B12 - PO 1,000 mcg DAILY [facility] Administration Diltiazem HCl 10 mg 03/07/19 15:27 03/07/19 15:49 Cardizem Injection - IVPUSH 10 mg Q4H PRN Administration TACHYCARDIA Docusate Sodium 100 mg 03/04/19 22:00 03/12/19 22:02 Colace - PO 100 mg BID JENNY Administration Folic Acid 1 mg 03/04/19 10:00 03/12/19 09:27 Folic Acid - PO 1 mg DAILY [facility] Administration Furosemide 20 mg 03/12/19 10:00 03/12/19 09:27 Lasix Injection - IVPUSH 20 mg DAILY [facility] Administration Insulin Aspart 1 vial 03/03/19 16:30 03/13/19 06:00 Novolog Vial Sliding Scale - SQ Not Given ACHS [facility] Protocol Metoprolol Succinate 100 mg 03/06/19 22:00 03/12/19 22:02 Toprol Xl - PO 100 mg BID [facility] Administration Midodrine 5 mg 03/12/19 10:00 03/12/19 18:07 Proamatine - PO 5 mg BID-MID [facility] Administration Mometasone Furoate 1 puff 03/03/19 22:00 03/12/19 22:03 Asmanex 220mcg - IH 1 puff BID [facility] Administration Polyethylene Glycol 17 gm 03/03/19 22:00 03/12/19 22:02 Miralax (For Daily Use) - PO Not Given BID [facility] Ranolazine 500 mg 03/03/19 22:00 03/12/19 22:02 Ranexa - PO 500 mg BID [facility] Administration Rivaroxaban 15 mg 03/06/19 18:00 03/12/19 18:07 Xarelto PO 15 mg DAILY@1800 [facility] Administration Vitamin E 400 unit 03/04/19 10:00 03/12/19 09:28 Vitamin E - PO 400 unit DAILY [facility] Administration ASSESSMENT/PLAN: 83 yof with PMHx of CAD, s/p PCI, CABG (2003), DCHF, Afib on coumadin, HTN, NIDDM, Hyperlipidemia, chronic right sided pleural effusions s/p thoracocentesis , diverticulosis, gastritis, chronic anemia, RESTREPO with cirrhosis, and anxiety, admitted with CHF 01/2019, admitted with near syncope, hypotension -Near syncope, suspected hypovolumic hypotension -Chronic diastolic heart failure -Anemia with constipation/gastritis -Afib with RVr -Chronic bilateral pleural effusions, R>L, s/p right thoracocentesis 1.5 bloody fluid 03/07 -Urinary retention, suspect from poor mobility+/- constipation -CAD s/p PCI, CABG 2013 -HTN -HLD -NIDDM -RESTREPO with cirrhosis -Pulmonary nodules Plan: recurrent episodes of orthostatic hypotension/near syncope, SBP 50s with sitting Started on midodrine with improvement, diuresing better. Lasix 20 mg IV daily with strict I/Os, daily weights, and orthostatics in AM and afternoon. Serial CXR. CXR with recurrent pleural effusion, follow up cytology (confirmed with lab, was sent), though likely chronic recurrent from CHF Sharp placed, continue for now, voiding trial once more ambulatory and volume status improved. Imdur/losartan d/hiral. Continue metoprolol/ranexa. Coumadin d/hiral, s/p vitamin K. INR improved. Continue xarelto. Dispo plan for SNF when clinically improved PT eval noted. Discussed with patient and nursing in detail, all questions answered. Visit type - Emergency Visit Emergency Visit: Yes ED Registration Date: 03/03/19 Care time: The patient presented to the Emergency Department on the above date and was hospitalized for further evaluation of their emergent condition. - New Patient This patient is new to me today: No - Critical Care Critical Care patient: No - Discharge Referral Referred to [facility] Med P.C.: No
--- NOTE | 2019-03-13 11:37 | PN ---
Progress Note (short form) - Note Progress Note: Breathing is overall better. No CP. Afebrile. No acute events overnight. Intake & Output 03/10/19 03/11/19 03/12/19 03/13/19 23:59 23:59 23:59 23:59 Intake Total 580 670 120 Output Total 1000 2000 1000 900 Balance -420 -1330 -880 -900 Weight 152 lb 148 lb 4 oz 146 lb Last Vital Signs Temp Pulse Resp BP Pulse Ox 97.8 F 107 H 19 112/73 97 03/13/19 06:00 03/13/19 06:00 03/13/19 06:00 03/13/19 06:00 03/12/19 21:00 Active Medications Acetaminophen (Tylenol -) 650 mg PO Q4H PRN PRN Reason: FEVER Albuterol/Ipratropium (Duoneb -) 1 amp NEB RTID [facility] Last Admin: 03/13/19 07:48 Dose: 1 amp Amiodarone HCl (Cordarone -) 200 mg PO DAILY [facility] Last Admin: 03/13/19 10:47 Dose: 200 mg Atorvastatin Calcium (Lipitor -) 80 mg PO HS [facility] Last Admin: 03/12/19 22:02 Dose: 80 mg Cyanocobalamin (Vitamin B12 -) 1,000 mcg PO DAILY [facility] Last Admin: 03/13/19 10:45 Dose: 1,000 mcg Diltiazem HCl (Cardizem Injection -) 10 mg IVPUSH Q4H PRN PRN Reason: TACHYCARDIA Last Admin: 03/07/19 15:49 Dose: 10 mg Docusate Sodium (Colace -) 100 mg PO BID [facility] Last Admin: 03/13/19 10:57 Dose: Not Given Folic Acid (Folic Acid -) 1 mg PO DAILY [facility] Last Admin: 03/13/19 10:45 Dose: 1 mg Furosemide (Lasix Injection -) 20 mg IVPUSH DAILY [facility] Last Admin: 03/13/19 10:44 Dose: 20 mg Insulin Aspart (Novolog Vial Sliding Scale -) 1 vial SQ [facility]; Protocol Last Admin: 03/13/19 06:00 Dose: Not Given Metoprolol Succinate (Toprol Xl -) 100 mg PO BID [facility] Last Admin: 03/13/19 10:45 Dose: 100 mg Midodrine (Proamatine -) 5 mg PO BID-MID [facility] Last Admin: 03/13/19 10:52 Dose: 5 mg Mometasone Furoate (Asmanex 220mcg -) 1 puff IH BID [facility] Last Admin: 03/13/19 10:48 Dose: 1 puff Polyethylene Glycol (Miralax (For Daily Use) -) 17 gm PO BID [facility] Last Admin: 03/13/19 10:47 Dose: Not Given Ranolazine (Ranexa -) 500 mg PO BID [facility] Last Admin: 03/13/19 10:46 Dose: 500 mg Rivaroxaban (Xarelto) 15 mg PO DAILY@1800 [facility] Last Admin: 03/12/19 18:07 Dose: 15 mg Vitamin E (Vitamin E -) 400 unit PO DAILY [facility] Last Admin: 03/13/19 10:46 Dose: 400 unit Gen: NAD at rest Heart: RRR Lung: decreased breath sounds at the bases Abd: soft, nontender Ext: no edema Laboratory Results - last 24 hr 03/12/19 03/12/19 03/13/19 16:44 22:02 05:15 Sodium 139 Potassium 3.7 Chloride 100 Carbon Dioxide 31 Anion Gap 8 BUN 34.7 H Creatinine 1.3 Est GFR (CKD-EPI)AfAm 43.32 Est GFR (CKD-EPI)NonAf 37.38 POC Glucometer 122 137 Random Glucose 127 H Calcium 9.3 03/13/19 03/13/19 05:45 10:56 Sodium Potassium Chloride Carbon Dioxide Anion Gap BUN Creatinine Est GFR (CKD-EPI)AfAm Est GFR (CKD-EPI)NonAf POC Glucometer 143 275 Random Glucose Calcium A/P Acute on Chronic Diastolic Heart Failure Paroxysmal Atrial Fibrillation Pleural Effusions s/p R thoracentesis CAD s/p CABG COPD Acute on Chronic Renal Failure HTN DM Hyperlipidemia RESTREPO/Liver Cirrhosis - Lasix - monitor urine output, creatinine - f/u pleural fluid cytology - inhaled bronchodilators - O2 to keep Spo2 >90% - rate control - continue anticoagulation Dr Resendiz
--- NOTE | 2019-03-13 16:48 | PATH ---
Cytology Non-Gynecological Report Patient Name: MILTON WYMAN [facility]. Rec. #: [id number] /Age/Gender: 1935 (Age: 83) / F Account: [id number] Location: 4 PEDS/ADOL Taken: 03/07/2019 Received: 03/07/2019 Reported: 03/13/2019 Physicians: Florentino Garcia M.D. Specimen(s) Received A: RIGHT PLEURAL FLUID B: RIGHT PLEURAL FLUID Clinical History Pleural effusion, CHF Final Diagnosis PLEURAL FLUID, RIGHT, THORACENTESIS: SATISFACTORY FOR EVALUATION. NEGATIVE FOR MALIGNANT CELLS. LYMPHOCYTIC PLEURAL EFFUSION, FAVOR REACTIVE. SMALL LYMPHOID POPULATION AND FEW MESOTHELIAL CELLS PRESENT. SEE COMMENT. Comment: Immunohistochemical stains performed and interpreted at [facility] show a population of small lymphocytes comprised predominantly of CD3+ T lymphocytes admixed with scattered CD20+ B cells. MARKEL is negative. Cytokeratin AE1/3 highlights rare mesothelial cells. Additional immunohistochemical stains performed at [facility], [place], [place] ([id number]) and interpreted at [facility] show T cells co-express BCL-2. MOC31, [place], BCL6, Calretinin and D2-40 stains are negative. Concurrent flow cytometry performed and interpreted at [facility], [place], [place] ([id number]) shows no clonal B-cell population detected, in a limited sample. No carcinoma identified. Overall findings show a T-cell rich lymphoid effusion which favors a reactive process. Suggest clinical and radiologic correlation. See Emerge report for additional details. Electronically Signed Leanne Millan M.D. Gross Description A. Approximately 60 cc of bloody fluid received fixed in 50% alcohol. One cytofunnel prepared and Pap stained. One cellblock prepared. B. Approximately 1300 cc of bloody fluid received fresh. One cytofunnel prepared and Pap stained. One cellblock prepared. An aliquot is sent to [facility] laboratory for flow cytometry.
[2019-03-13] MEDS: RIVAROXABAN 15 MG TABLET PO SCH (17:15)
[2019-03-13] MEDS: ATORVASTATIN CA 80 MG TABLET (FP) PO SCH (21:51)
[2019-03-14] MEDS: INSULIN SLIDING SCALE (NOVOLOG) 1 VIAL SQ SCH ×4 (06:14→22:20)
[2019-03-14 08:21] LABS: CALCIUM 9.4 mg/dL (8.5-10.1); CREATININE 1.3 mg/dL (0.55-1.3)
[2019-03-14] MEDS: ALBUTEROL SO4 2.5/IPRATROPIUM 0.5 INH SOL 3 ML VIAL.NEB. NEB SCH (08:44)
[2019-03-14] MEDS ORDERED: PT OWN MED DRAWER 7, Y5N ONE ×4 (09:16→16:49)
[2019-03-14] MEDS: MIDODRINE HCL 5 MG TABLET PO SCH ×3 (09:19→17:13)
[2019-03-14] MEDS: VITAMIN E 400 INTERNATIONAL-UNITS CAPSULE (FP) PO SCH (09:19)
[2019-03-14] MEDS: FUROSEMIDE 40 MG/4 ML INJECTABLE VIAL IVPUSH SCH (09:20)
[2019-03-14] MEDS: RANOLAZINE E.R. 500 MG TABLET (FP) PO SCH ×2 (09:20→22:19)
[2019-03-14] MEDS: CYANOCOBALAMIN 1,000 MCG TABLET (FP) PO SCH (09:20)
[2019-03-14] MEDS: AMIODARONE HCL 200 MG TABLET (FP) PO SCH (09:20)
[2019-03-14] MEDS: FOLIC ACID 1 MG TABLET (FP) PO SCH (09:20)
[2019-03-14] MEDS: MOMETASONE FUROATE 220 MCG/IH INHALER IH SCH ×2 (09:32→22:19)
[2019-03-14] MEDS: DOCUSATE SODIUM 100 MG CAPSULE (FP) PO SCH ×2 (09:37→22:19)
[2019-03-14] MEDS: POLYETHYLENE GLYCOL 3350 119 GM BTL PO SCH ×2 (09:37→22:20)
--- NOTE | 2019-03-14 10:03 | PN ---
Physical Exam: SUBJECTIVE: Patient seen and examined, some dyspnea this AM now improved. overall positional dizziness better. States got up to get on the scale yesterday , and did not feel dizzy. OBJECTIVE: Vital Signs Period Temp Pulse Resp BP Sys/Cortes Pulse Ox Last 24 Hr 97.8 F-98.2 F 87-106 18-21 90-113/57-71 98 Intake & Output 03/11/19 03/12/19 03/13/19 03/14/19 23:59 23:59 23:59 23:59 Intake Total 670 120 610 Output Total 2000 1000 1900 400 Balance -1330 -880 -1290 -400 Weight 152 lb 148 lb 4 oz 146 lb 145 lb 9.6 oz GENERAL: sitting in bed in no acute distress Neck: soft, supple, improved neck vein distension CVS:S1S2 irregular Chest: Decreased breath sounds bilateral bases, R>L, few right basilar rales, improved air entry and exam today Abdomen:soft, NT, improved distension extremities: 1+ pedal edema Psych: pleasant, co-operative Laboratory Results - last 24 hr 03/13/19 03/13/19 03/13/19 10:56 17:10 21:50 Sodium Potassium Chloride Carbon Dioxide Anion Gap BUN Creatinine Est GFR (CKD-EPI)AfAm Est GFR (CKD-EPI)NonAf POC Glucometer 275 98 165 Random Glucose Calcium 03/14/19 03/14/19 05:33 06:29 Sodium 138 Potassium 4.0 Chloride 102 Carbon Dioxide 31 Anion Gap 6 L BUN 33.0 H Creatinine 1.3 Est GFR (CKD-EPI)AfAm 43.32 Est GFR (CKD-EPI)NonAf 37.38 POC Glucometer 125 Random Glucose 125 H Calcium 9.4 Active Medications Generic Name Dose Route Start Last Admin Trade Name Freq PRN Reason Stop Dose Admin Acetaminophen 650 mg 03/03/19 14:52 Tylenol - PO Q4H PRN FEVER Albuterol/Ipratropium 1 amp 03/05/19 14:00 03/14/19 08:44 Duoneb - NEB 1 amp RTID JENNY Administration Amiodarone HCl 200 mg 03/04/19 10:00 03/14/19 09:20 Cordarone - PO 200 mg DAILY [facility]NY Administration Atorvastatin Calcium 80 mg 03/03/19 22:00 03/13/19 21:51 Lipitor - PO 80 mg HS JENNY Administration Cyanocobalamin 1,000 mcg 03/04/19 10:00 03/14/19 09:20 Vitamin B12 - PO 1,000 mcg DAILY [facility]ENNY Administration Diltiazem HCl 10 mg 03/07/19 15:27 03/07/19 15:49 Cardizem Injection - IVPUSH 10 mg Q4H PRN Administration TACHYCARDIA Docusate Sodium 100 mg 03/04/19 22:00 03/14/19 09:37 Colace - PO Not Given BID JENNY Folic Acid 1 mg 03/04/19 10:00 03/14/19 09:20 Folic Acid - PO 1 mg DAILY [facility] Administration Furosemide 20 mg 03/12/19 10:00 03/14/19 09:20 Lasix Injection - IVPUSH 20 mg DAILY [facility]ENNY Administration Insulin Aspart 1 vial 03/03/19 16:30 03/14/19 06:14 Novolog Vial Sliding Scale - SQ Not Given ACHS [facility] Protocol Metoprolol Succinate 100 mg 03/06/19 22:00 03/14/19 09:38 Toprol Xl - PO 100 mg BID [facility]NY Administration Midodrine 5 mg 03/14/19 10:00 03/14/19 09:19 Proamatine - PO 5 mg TID-MID JENNY Administration Mometasone Furoate 1 puff 03/03/19 22:00 03/14/19 09:32 Asmanex 220mcg - IH 1 puff BID [facility] Administration Polyethylene Glycol 17 gm 03/03/19 22:00 03/14/19 09:37 Miralax (For Daily Use) - PO Not Given BID [facility] Ranolazine 500 mg 03/03/19 22:00 03/14/19 09:20 Ranexa - PO 500 mg BID [facility] Administration Rivaroxaban 15 mg 03/06/19 18:00 03/13/19 17:15 Xarelto PO 15 mg DAILY@1800 [facility]NY Administration Vitamin E 400 unit 03/04/19 10:00 03/14/19 09:19 Vitamin E - PO 400 unit DAILY JENNY Administration ASSESSMENT/PLAN: 83 yof with PMHx of CAD, s/p PCI, CABG (2003), DCHF, Afib on coumadin, HTN, NIDDM, Hyperlipidemia, chronic right sided pleural effusions s/p thoracocentesis , diverticulosis, gastritis, chronic anemia, RESTREPO with cirrhosis, and anxiety, admitted with CHF 01/2019, admitted with near syncope, hypotension -Near syncope, suspected hypovolumic hypotension -Chronic diastolic heart failure -Anemia with constipation/gastritis -Afib with RVr -Chronic bilateral pleural effusions, R>L, s/p right thoracocentesis 1.5 bloody fluid 03/07 -Urinary retention, suspect from poor mobility+/- constipation -CAD s/p PCI, CABG 2013 -HTN -HLD -NIDDM -RESTREPO with cirrhosis -Pulmonary nodules Plan: recurrent episodes of orthostatic hypotension/near syncope started on midodrine with improved orthostasis and diuresis. Titrate up to 5 mg TID. Lasix 20 mg IV daily for now. CXR today better. Discussed with RN to check orthostatics in AM and afternon. CXR with recurrent pleural effusion, follow up cytology (confirmed with lab, was sent), though likely chronic recurrent from CHF Ch[place] placed for urinary retention, d/c chacon today, voiding trial prior to dc. Imdur/losartan d/hiral. Continue metoprolol/ranexa. Coumadin d/hiral, s/p vitamin K. INR improved. Continue xarelto. Dispo plan for SNF , anticipate by Wednesday if BP, volume status continue to improve. PT eval noted. Discussed with patient and nursing in detail, all questions answered. Visit type - Emergency Visit Emergency Visit: Yes ED Registration Date: 03/03/19 Care time: The patient presented to the Emergency Department on the above date and was hospitalized for further evaluation of their emergent condition. - New Patient This patient is new to me today: No - Critical Care Critical Care patient: No - Discharge Referral Referred to [facility] Med P.C.: No
--- NOTE | 2019-03-14 10:20 | PN ---
Progress Note, Physician Chief Complaint: Events noted Not in distress History of Present Illness: Patient was seen and examined. Awake and alert. Chart was reviewed Denies chest pain or SOB - Current Medication List Current Medications: Active Medications Acetaminophen (Tylenol -) 650 mg PO Q4H PRN PRN Reason: FEVER Albuterol/Ipratropium (Duoneb -) 1 amp NEB RTID [facility] Last Admin: 03/14/19 08:44 Dose: 1 amp Amiodarone HCl (Cordarone -) 200 mg PO DAILY [facility] Last Admin: 03/14/19 09:20 Dose: 200 mg Atorvastatin Calcium (Lipitor -) 80 mg PO HS [facility] Last Admin: 03/13/19 21:51 Dose: 80 mg Cyanocobalamin (Vitamin B12 -) 1,000 mcg PO DAILY [facility] Last Admin: 03/14/19 09:20 Dose: 1,000 mcg Diltiazem HCl (Cardizem Injection -) 10 mg IVPUSH Q4H PRN PRN Reason: TACHYCARDIA Last Admin: 03/07/19 15:49 Dose: 10 mg Docusate Sodium (Colace -) 100 mg PO BID [facility] Last Admin: 03/14/19 09:37 Dose: Not Given Folic Acid (Folic Acid -) 1 mg PO DAILY [facility] Last Admin: 03/14/19 09:20 Dose: 1 mg Furosemide (Lasix Injection -) 20 mg IVPUSH DAILY [facility] Last Admin: 03/14/19 09:20 Dose: 20 mg Insulin Aspart (Novolog Vial Sliding Scale -) 1 vial SQ ACHS [facility]; Protocol Last Admin: 03/14/19 06:14 Dose: Not Given Metoprolol Succinate (Toprol Xl -) 100 mg PO BID [facility] Last Admin: 03/14/19 09:38 Dose: 100 mg Midodrine (Proamatine -) 5 mg PO TID-MID [facility] Last Admin: 03/14/19 09:19 Dose: 5 mg Mometasone Furoate (Asmanex 220mcg -) 1 puff IH BID [facility] Last Admin: 03/14/19 09:32 Dose: 1 puff Polyethylene Glycol (Miralax (For Daily Use) -) 17 gm PO BID [facility] Last Admin: 03/14/19 09:37 Dose: Not Given Ranolazine (Ranexa -) 500 mg PO BID [facility] Last Admin: 03/14/19 09:20 Dose: 500 mg Rivaroxaban (Xarelto) 15 mg PO DAILY@1800 [facility] Last Admin: 03/13/19 17:15 Dose: 15 mg Vitamin E (Vitamin E -) 400 unit PO DAILY [facility] Last Admin: 03/14/19 09:19 Dose: 400 unit - Objective Vital Signs: Vital Signs Temperature 98.0 F 03/14/19 06:00 Pulse Rate 87 03/14/19 06:00 Respiratory Rate 21 H 03/14/19 06:00 Blood Pressure 103/62 03/14/19 06:00 O2 Sat by Pulse Oximetry (%) 98 03/13/19 21:00 HENT: Yes: Atraumatic Neck: Yes: Supple Cardiovascular: Yes: Pulse Irregular, S1, S2 Respiratory: Yes: Diminished Gastrointestinal: Yes: Normal Bowel Sounds, Soft. No: Tenderness Edema: No Additional Findings/Remarks: - Review of Systems Constitutional: reports: Weakness. denies: Chills, Fever Cardiovascular: denies: Palpitations, Shortness of Breath. denies: Chest Pain Respiratory: denies: Cough, Hemoptysis, Orthopnea, PND Gastrointestinal: denies: Abdominal Pain, Constipation, Diarrhea, Melena, Nausea , Rectal Bleeding, Vomiting Genitourinary: denies: Dysuria Neurological: denies: Dizziness, Headache, Seizure, Syncope Labs: CBC, BMP 03/12/19 06:40 03/14/19 06:29 Problem List - Problems (1) Abnormal TSH Code(s): R79.89 - OTHER SPECIFIED ABNORMAL FINDINGS OF BLOOD CHEMISTRY (2) Anemia Code(s): D64.9 - ANEMIA, UNSPECIFIED Qualifiers: Anemia type: unspecified type Qualified Code(s): D64.9 - Anemia, unspecified (3) CKD (chronic kidney disease) Code(s): N18.9 - CHRONIC KIDNEY DISEASE, UNSPECIFIED (4) Chronic atrial fibrillation Code(s): I48.2 - CHRONIC ATRIAL FIBRILLATION (5) Cirrhosis of liver not due to alcohol Code(s): K74.60 - UNSPECIFIED CIRRHOSIS OF LIVER (6) Mesenteric mass Code(s): K63.89 - OTHER SPECIFIED DISEASES OF INTESTINE (7) [id number] kidney injury Code(s): N17.9 - ACUTE KIDNEY FAILURE, UNSPECIFIED; N18.9 - CHRONIC KIDNEY DISEASE, UNSPECIFIED Qualifiers: Chronic kidney disease stage: stage 2 (mild) (8) CHF (congestive heart failure) Code(s): I50.9 - HEART FAILURE, UNSPECIFIED Qualifiers: Heart failure type: diastolic Heart failure chronicity: chronic Qualified Code(s): I50.32 - Chronic diastolic (congestive) heart failure (9) Diabetes Code(s): E11.9 - TYPE 2 DIABETES MELLITUS WITHOUT COMPLICATIONS Qualifiers: Diabetes mellitus type: type 2 Diabetes mellitus moth exterminator insulin use: without moth exterminator use (10) Hx of CABG Code(s): Z95.1 - PRESENCE OF AORTOCORONARY BYPASS GRAFT (11) Hyperlipidemia Code(s): E78.5 - HYPERLIPIDEMIA, UNSPECIFIED Qualifiers: Hyperlipidemia type: pure hypercholesterolemia Qualified Code(s): E78.00 - Pure hypercholesterolemia, unspecified; E78.0 - Pure hypercholesterolemia (12) Hypertension Code(s): I10 - ESSENTIAL (PRIMARY) HYPERTENSION Qualifiers: Hypertension type: essential hypertension Qualified Code(s): I10 - Essential (primary) hypertension (13) Paroxysmal atrial fibrillation with rapid ventricular response Code(s): I48.0 - PAROXYSMAL ATRIAL FIBRILLATION Assessment/Plan 1. Weakness, fatigue, positional near syncope due to hypovolemic hypotension 2. Chronic anemia with history of diverticulosis and gastritis 3. Acute on chronic diastolic heart failure and bilateral pleural effusions (R>L ) post thoracentesis 4. Paroxysmal AF with RVR 5. CAD s/p CABG, PCI, angina 6. Type 2 DM 7. Hyperlipidemia 8. Acute on CKD 9. HTN 10. RSETREPO with cirrhosis, cholelithiasis 11. 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 Abnormal TSH, ? sick euthyroid vs Amiodarone effects PLAN: 1. Lasix (currently still IV but may switch to PO) with monitoring renal recovery and electrolytes 2. Continue renal-dosed Xarelto 15 mg QD 3. Continue Toprol XL 100 mg BID 4. Continue Ranexa 500 mg BID, Amiodarone 200 mg QD, Lipitor 80 mg QD and eventually Vascepa 2 mg BID 5. Bronchodilator and O2 as needed 6. CT with contrast when renal function permits to assess status of mesenteric mass and exclude other occult neoplasm ? hepatoma 7. Monitor orthostasis Further plans are to follow. Jose Raul Brannon MD
--- NOTE | 2019-03-14 12:01 | PN ---
Progress Note (short form) - Note Progress Note: Feels overall better. No CP or SOB. Afebrile. No acute events overnight. CXR: small residual effusion on the right Intake & Output 03/11/19 03/12/19 03/13/19 03/14/19 23:59 23:59 23:59 23:59 Intake Total 670 120 610 Output Total 2000 1000 1900 800 Balance -1330 -880 -1290 -800 Weight 152 lb 148 lb 4 oz 146 lb 145 lb 9.6 oz Last Vital Signs Temp Pulse Resp BP Pulse Ox 98.1 F 90 20 104/66 98 03/14/19 10:00 03/14/19 10:00 03/14/19 10:00 03/14/19 10:00 03/13/19 21:00 Active Medications Acetaminophen (Tylenol -) 650 mg PO Q4H PRN PRN Reason: FEVER Albuterol/Ipratropium (Duoneb -) 1 amp NEB RTID [facility] Last Admin: 03/14/19 08:44 Dose: 1 amp Amiodarone HCl (Cordarone -) 200 mg PO DAILY [facility] Last Admin: 03/14/19 09:20 Dose: 200 mg Atorvastatin Calcium (Lipitor -) 80 mg PO HS [facility] Last Admin: 03/13/19 21:51 Dose: 80 mg Cyanocobalamin (Vitamin B12 -) 1,000 mcg PO DAILY [facility] Last Admin: 03/14/19 09:20 Dose: 1,000 mcg Diltiazem HCl (Cardizem Injection -) 10 mg IVPUSH Q4H PRN PRN Reason: TACHYCARDIA Last Admin: 03/07/19 15:49 Dose: 10 mg Docusate Sodium (Colace -) 100 mg PO BID [facility] Last Admin: 03/14/19 09:37 Dose: Not Given Folic Acid (Folic Acid -) 1 mg PO DAILY [facility] Last Admin: 03/14/19 09:20 Dose: 1 mg Furosemide (Lasix Injection -) 20 mg IVPUSH DAILY [facility] Last Admin: 03/14/19 09:20 Dose: 20 mg Insulin Aspart (Novolog Vial Sliding Scale -) 1 vial SQ [facility]; Protocol Last Admin: 03/14/19 11:28 Dose: 2 units Metoprolol Succinate (Toprol Xl -) 100 mg PO BID [facility] Last Admin: 03/14/19 09:38 Dose: 100 mg Midodrine (Proamatine -) 5 mg PO TID-MID [facility] Last Admin: 03/14/19 09:19 Dose: 5 mg Mometasone Furoate (Asmanex 220mcg -) 1 puff IH BID [facility] Last Admin: 03/14/19 09:32 Dose: 1 puff Polyethylene Glycol (Miralax (For Daily Use) -) 17 gm PO BID [facility] Last Admin: 03/14/19 09:37 Dose: Not Given Ranolazine (Ranexa -) 500 mg PO BID [facility] Last Admin: 03/14/19 09:20 Dose: 500 mg Rivaroxaban (Xarelto) 15 mg PO DAILY@1800 [facility] Last Admin: 03/13/19 17:15 Dose: 15 mg Vitamin E (Vitamin E -) 400 unit PO DAILY [facility] Last Admin: 03/14/19 09:19 Dose: 400 unit Gen: NAD at rest Heart: RRR Lung: decreased breath sounds at the bases Abd: soft, nontender Ext: no edema Laboratory Results - last 24 hr 03/13/19 03/13/19 03/14/19 17:10 21:50 05:33 Sodium Potassium Chloride Carbon Dioxide Anion Gap BUN Creatinine Est GFR (CKD-EPI)AfAm Est GFR (CKD-EPI)NonAf POC Glucometer 98 165 125 Random Glucose Calcium 03/14/19 03/14/19 06:29 11:27 Sodium 138 Potassium 4.0 Chloride 102 Carbon Dioxide 31 Anion Gap 6 L BUN 33.0 H Creatinine 1.3 Est GFR (CKD-EPI)AfAm 43.32 Est GFR (CKD-EPI)NonAf 37.38 POC Glucometer 198 Random Glucose 125 H Calcium 9.4 A/P Acute on Chronic Diastolic Heart Failure Paroxysmal Atrial Fibrillation Pleural Effusions s/p R thoracentesis: reactive lymphocytes / negative for malignant cells CAD s/p CABG COPD Acute on Chronic Renal Failure HTN DM Hyperlipidemia RESTREPO/Liver Cirrhosis - Lasix - inhaled bronchodilators - O2 to keep Spo2 >90% - rate control - continue anticoagulation - DC planning Dr Resendiz
[2019-03-14] MEDS: RIVAROXABAN 15 MG TABLET PO SCH (17:13)
[2019-03-14] MEDS: ATORVASTATIN CA 80 MG TABLET (FP) PO SCH (22:19)
[2019-03-15] MEDS: INSULIN SLIDING SCALE (NOVOLOG) 1 VIAL SQ SCH ×4 (06:00→22:39)
[2019-03-15 06:41] LABS: BLOOD UREA NITROGEN 32.6 mg/dL (7-18); CALCIUM 9.3 mg/dL (8.5-10.1); CREATININE 1.3 mg/dL (0.55-1.3); MAGNESIUM 2.2 mg/dL (1.8-2.4); PHOSPHOROUS 2.9 mg/dL (2.5-4.9); POTASSIUM 3.6 mmol/L (3.5-5.1)
[2019-03-15] MEDS: FUROSEMIDE 40 MG/4 ML INJECTABLE VIAL IVPUSH SCH (10:41)
[2019-03-15] MEDS ORDERED: PT OWN MED DRAWER 7, Y5N ONE ×2 (10:41→17:15)
[2019-03-15] MEDS: AMIODARONE HCL 200 MG TABLET (FP) PO SCH (10:42)
[2019-03-15] MEDS: CYANOCOBALAMIN 1,000 MCG TABLET (FP) PO SCH (10:42)
[2019-03-15] MEDS: RANOLAZINE E.R. 500 MG TABLET (FP) PO SCH ×2 (10:42→22:38)
[2019-03-15] MEDS: DOCUSATE SODIUM 100 MG CAPSULE (FP) PO SCH ×2 (10:42→22:39)
[2019-03-15] MEDS: FOLIC ACID 1 MG TABLET (FP) PO SCH (10:42)
[2019-03-15] MEDS: MIDODRINE HCL 5 MG TABLET PO SCH (10:43)
[2019-03-15] MEDS: VITAMIN E 400 INTERNATIONAL-UNITS CAPSULE (FP) PO SCH (10:43)
[2019-03-15] MEDS: POLYETHYLENE GLYCOL 3350 119 GM BTL PO SCH ×2 (10:44→22:39)
[2019-03-15] MEDS: MOMETASONE FUROATE 220 MCG/IH INHALER IH SCH ×2 (10:45→22:38)
--- NOTE | 2019-03-15 11:10 | PN ---
Progress Note (short form) - Note Progress Note: Resting in NAD. No CP or SOB. Afebrile. No acute events overnight. Intake & Output 03/12/19 03/13/19 03/14/19 03/15/19 23:59 23:59 23:59 23:59 Intake Total 723 871 4599 Output Total 1000 7450 962 0085 Balance -880 -1290 328 -1000 Weight 148 lb 4 oz 146 lb 145 lb 145 lb 0.4 oz Last Vital Signs Temp Pulse Resp BP Pulse Ox 97.7 F 106 H 20 111/65 96 03/15/19 06:00 03/15/19 06:00 03/15/19 06:00 03/15/19 06:00 03/14/19 21:00 Active Medications Acetaminophen (Tylenol -) 650 mg PO Q4H PRN PRN Reason: FEVER Amiodarone HCl (Cordarone -) 200 mg PO DAILY [facility] Last Admin: 03/15/19 10:42 Dose: 200 mg Atorvastatin Calcium (Lipitor -) 80 mg PO HS [facility] Last Admin: 03/14/19 22:19 Dose: 80 mg Cyanocobalamin (Vitamin B12 -) 1,000 mcg PO DAILY [facility] Last Admin: 03/15/19 10:42 Dose: 1,000 mcg Diltiazem HCl (Cardizem Injection -) 10 mg IVPUSH Q4H PRN PRN Reason: TACHYCARDIA Last Admin: 03/07/19 15:49 Dose: 10 mg Docusate Sodium (Colace -) 100 mg PO BID [facility] Last Admin: 03/15/19 10:42 Dose: Not Given Folic Acid (Folic Acid -) 1 mg PO DAILY [facility] Last Admin: 03/15/19 10:42 Dose: 1 mg Furosemide (Lasix Injection -) 20 mg IVPUSH DAILY [facility] Last Admin: 03/15/19 10:41 Dose: 20 mg Insulin Aspart (Novolog Vial Sliding Scale -) 1 vial SQ ACHS [facility]; Protocol Last Admin: 03/15/19 06:00 Dose: Not Given Metoprolol Succinate (Toprol Xl -) 100 mg PO BID [facility] Last Admin: 03/15/19 10:41 Dose: 100 mg Midodrine (Proamatine -) 5 mg PO TID-MID [facility] Last Admin: 03/15/19 10:43 Dose: 5 mg Mometasone Furoate (Asmanex 220mcg -) 1 puff IH BID [facility] Last Admin: 03/15/19 10:45 Dose: 1 puff Polyethylene Glycol (Miralax (For Daily Use) -) 17 gm PO BID [facility] Last Admin: 03/15/19 10:44 Dose: Not Given Ranolazine (Ranexa -) 500 mg PO BID [facility] Last Admin: 03/15/19 10:42 Dose: 500 mg Rivaroxaban (Xarelto) 15 mg PO DAILY@1800 [facility] Last Admin: 03/14/19 17:13 Dose: 15 mg Vitamin E (Vitamin E -) 400 unit PO DAILY [facility] Last Admin: 03/15/19 10:43 Dose: 400 unit Gen: NAD at rest Heart: RRR Lung: decreased breath sounds at the bases Abd: soft, nontender Ext: no edema Laboratory Results - last 24 hr 03/14/19 03/14/19 03/14/19 11:27 16:51 22:18 Sodium Potassium Chloride Carbon Dioxide Anion Gap BUN Creatinine Est GFR (CKD-EPI)AfAm Est GFR (CKD-EPI)NonAf POC Glucometer 198 146 129 Random Glucose Calcium Phosphorus Magnesium 03/15/19 03/15/19 05:25 05:28 Sodium 140 Potassium 3.6 Chloride 101 Carbon Dioxide 31 Anion Gap 8 BUN 32.6 H Creatinine 1.3 Est GFR (CKD-EPI)AfAm 43.32 Est GFR (CKD-EPI)NonAf 37.38 POC Glucometer 142 Random Glucose 140 H Calcium 9.3 Phosphorus 2.9 Magnesium 2.2 A/P Acute on Chronic Diastolic Heart Failure Paroxysmal Atrial Fibrillation Pleural Effusions s/p R thoracentesis: reactive lymphocytes / negative for malignant cells CAD s/p CABG COPD Acute on Chronic Renal Failure HTN DM Hyperlipidemia RESTREPO/Liver Cirrhosis - Lasix - inhaled bronchodilators - O2 to keep Spo2 >90% - rate control - Asmanex - continue anticoagulation - No Pulmonary contraindication for DC planning Dr Resendiz
--- NOTE | 2019-03-15 11:17 | PN ---
Progress Note, Physician History of Present Illness: Resting comfortably w/o dyspnea or orthopnea, afib remains rate-controlled after medication adjustments. - Current Medication List Current Medications: Active Medications Acetaminophen (Tylenol -) 650 mg PO Q4H PRN PRN Reason: FEVER Amiodarone HCl (Cordarone -) 200 mg PO DAILY [facility] Last Admin: 03/15/19 10:42 Dose: 200 mg Atorvastatin Calcium (Lipitor -) 80 mg PO HS [facility] Last Admin: 03/14/19 22:19 Dose: 80 mg Cyanocobalamin (Vitamin B12 -) 1,000 mcg PO DAILY [facility] Last Admin: 03/15/19 10:42 Dose: 1,000 mcg Diltiazem HCl (Cardizem Injection -) 10 mg IVPUSH Q4H PRN PRN Reason: TACHYCARDIA Last Admin: 03/07/19 15:49 Dose: 10 mg Docusate Sodium (Colace -) 100 mg PO BID [facility] Last Admin: 03/15/19 10:42 Dose: Not Given Folic Acid (Folic Acid -) 1 mg PO DAILY [facility] Last Admin: 03/15/19 10:42 Dose: 1 mg Furosemide (Lasix Injection -) 20 mg IVPUSH DAILY [facility] Last Admin: 03/15/19 10:41 Dose: 20 mg Insulin Aspart (Novolog Vial Sliding Scale -) 1 vial SQ [facility]; Protocol Last Admin: 03/15/19 06:00 Dose: Not Given Metoprolol Succinate (Toprol Xl -) 100 mg PO BID [facility] Last Admin: 03/15/19 10:41 Dose: 100 mg Midodrine (Proamatine -) 5 mg PO TID-MID [facility] Last Admin: 03/15/19 10:43 Dose: 5 mg Mometasone Furoate (Asmanex 220mcg -) 1 puff IH BID [facility] Last Admin: 03/15/19 10:45 Dose: 1 puff Polyethylene Glycol (Miralax (For Daily Use) -) 17 gm PO BID [facility] Last Admin: 03/15/19 10:44 Dose: Not Given Ranolazine (Ranexa -) 500 mg PO BID [facility] Last Admin: 03/15/19 10:42 Dose: 500 mg Rivaroxaban (Xarelto) 15 mg PO DAILY@1800 [facility] Last Admin: 03/14/19 17:13 Dose: 15 mg Vitamin E (Vitamin E -) 400 unit PO DAILY [facility] Last Admin: 03/15/19 10:43 Dose: 400 unit - Objective Vital Signs: Vital Signs Temperature 97.7 F 03/15/19 06:00 Pulse Rate 106 H 03/15/19 06:00 Respiratory Rate 20 03/15/19 06:00 Blood Pressure 111/65 03/15/19 06:00 O2 Sat by Pulse Oximetry (%) 96 03/14/19 21:00 Constitutional: Yes: No Distress, Calm Neck: Yes: Supple Cardiovascular: Yes: Pulse Irregular Respiratory: Yes: Regular, Diminished Gastrointestinal: Yes: Normal Bowel Sounds, Soft Edema: No Labs: CBC, BMP 03/12/19 06:40 03/15/19 05:25 INR, PTT INR 1.18 (0.83-1.09) H 03/06/19 05:20 Problem List - Problems (1) Abnormal TSH Code(s): R79.89 - OTHER SPECIFIED ABNORMAL FINDINGS OF BLOOD CHEMISTRY (2) Anemia Code(s): D64.9 - ANEMIA, UNSPECIFIED Qualifiers: Anemia type: unspecified type Qualified Code(s): D64.9 - Anemia, unspecified (3) Hypotension Code(s): I95.9 - HYPOTENSION, UNSPECIFIED Qualifiers: Hypotension type: hypotension due to hypovolemia Qualified Code(s): I95.89 - Other hypotension; E86.1 - Hypovolemia (4) Mesenteric mass Code(s): K63.89 - OTHER SPECIFIED DISEASES OF INTESTINE (5) Portal hypertensive gastropathy Code(s): K76.6 - PORTAL HYPERTENSION; K31.89 - OTHER DISEASES OF STOMACH AND DUODENUM (6) [id number] kidney injury Code(s): N17.9 - ACUTE KIDNEY FAILURE, UNSPECIFIED; N18.9 - CHRONIC KIDNEY DISEASE, UNSPECIFIED Qualifiers: Chronic kidney disease stage: stage 2 (mild) (7) CHF (congestive heart failure) Code(s): I50.9 - HEART FAILURE, UNSPECIFIED Qualifiers: Heart failure type: diastolic Heart failure chronicity: chronic Qualified Code(s): I50.32 - Chronic diastolic (congestive) heart failure (8) Hx of CABG Code(s): Z95.1 - PRESENCE OF AORTOCORONARY BYPASS GRAFT (9) Hyperlipidemia Code(s): E78.5 - HYPERLIPIDEMIA, UNSPECIFIED Qualifiers: Hyperlipidemia type: pure hypercholesterolemia Qualified Code(s): E78.00 - Pure hypercholesterolemia, unspecified; E78.0 - Pure hypercholesterolemia (10) Hypertension Code(s): I10 - ESSENTIAL (PRIMARY) HYPERTENSION Qualifiers: Hypertension type: essential hypertension Qualified Code(s): I10 - Essential (primary) hypertension (11) Paroxysmal atrial fibrillation with rapid ventricular response Code(s): I48.0 - PAROXYSMAL ATRIAL FIBRILLATION (12) Syncope, near Code(s): R55 - SYNCOPE AND COLLAPSE Assessment/Plan 02/02/2019 Chest CTA: No PE, increased bilateral pleural effusions R>L c/w pulm vascular congestion 02/01/2019 Lexiscan Myoview: No ischemia, LVEF 48% 02/02/2019 Echo: Mild cLVH normal LV and RV size and fxn, mild LAE, mild , tr TR RVSP 23 mmHg, pleural effusion 12/08/2018 Echo: cLVH with normal LVEF 65-70%, mild LAE 4.6 cm, mild CHILO, normal RV size and fxn, mild MR, mild-mod TR RVSP 31 mmHg 1. Weakness, fatigue, positional near syncope due to hypovolemic hypotension 2. Chronic anemia with history of diverticulosis and gastritis 3. Acute on chronic diastolic heart failure and bilateral pleural effusions (R>L ) post R thoracentesis: reactive lymphocytes / negative for malignant cells 4. Paroxysmal AF with RVR 5. CAD s/p CABG, PCI, angina 6. Type 2 DM 7. Hyperlipidemia 8. Acute on CKD 9. HTN 10. RESTREPO with cirrhosis, cholelithiasis 11. 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 Abnormal TSH, ? sick euthyroid vs Amiodarone effects PLAN: 1. Resume home dose Lasix 40 po qd with monitor diuretic response, renal fxn and electrolytes 2. Continue renal-dosed Xarelto 15 mg QD 3. Continue Toprol XL 100 mg BID, wean off midodrine 5 bid 4. Continue Ranexa 500 mg BID, Amiodarone 200 mg QD, Lipitor 80 mg QD and eventually Vascepa 2 mg BID 5. Bronchodilator and O2 as needed 6. CT with contrast when renal function permits to assess status of mesenteric mass and exclude other occult neoplasm ? hepatoma 7. PT->SNF, d/c planning
--- NOTE | 2019-03-15 16:21 | PN ---
Progress Note, Physician Chief Complaint: Ms Alexis says she is feeling better and not feeling lightheaded when she stands up. She denies cp, sob, n/v. - Current Medication List Current Medications: Active Medications Acetaminophen (Tylenol -) 650 mg PO Q4H PRN PRN Reason: FEVER Amiodarone HCl (Cordarone -) 200 mg PO DAILY [facility] Last Admin: 03/15/19 10:42 Dose: 200 mg Atorvastatin Calcium (Lipitor -) 80 mg PO HS [facility] Last Admin: 03/14/19 22:19 Dose: 80 mg Cyanocobalamin (Vitamin B12 -) 1,000 mcg PO DAILY [facility] Last Admin: 03/15/19 10:42 Dose: 1,000 mcg Diltiazem HCl (Cardizem Injection -) 10 mg IVPUSH Q4H PRN PRN Reason: TACHYCARDIA Last Admin: 03/07/19 15:49 Dose: 10 mg Docusate Sodium (Colace -) 100 mg PO BID [facility] Last Admin: 03/15/19 10:42 Dose: Not Given Folic Acid (Folic Acid -) 1 mg PO DAILY [facility] Last Admin: 03/15/19 10:42 Dose: 1 mg Furosemide (Lasix -) 40 mg PO DAILY [facility] Insulin Aspart (Novolog Vial Sliding Scale -) 1 vial SQ ACHS [facility]; Protocol Last Admin: 03/15/19 12:00 Dose: Not Given Metoprolol Succinate (Toprol Xl -) 100 mg PO BID [facility] Last Admin: 03/15/19 10:41 Dose: 100 mg Mometasone Furoate (Asmanex 220mcg -) 1 puff IH BID [facility] Last Admin: 03/15/19 10:45 Dose: 1 puff Polyethylene Glycol (Miralax (For Daily Use) -) 17 gm PO BID [facility] Last Admin: 03/15/19 10:44 Dose: Not Given Ranolazine (Ranexa -) 500 mg PO BID [facility] Last Admin: 03/15/19 10:42 Dose: 500 mg Rivaroxaban (Xarelto) 15 mg PO DAILY@1800 [facility] Last Admin: 03/14/19 17:13 Dose: 15 mg Vitamin E (Vitamin E -) 400 unit PO DAILY [facility] Last Admin: 03/15/19 10:43 Dose: 400 unit - Objective Vital Signs: Vital Signs Temperature 36.4 C 03/15/19 15:00 Pulse Rate 99 H 08/07/19 15:00 Respiratory Rate 18 03/15/19 15:00 Blood Pressure 109/68 03/15/19 15:00 O2 Sat by Pulse Oximetry (%) 98 03/15/19 11:30 Constitutional: Yes: Well Nourished, No Distress, Calm Cardiovascular: Yes: Tachycardia (slight), Pulse Irregular. No: Gallop, Murmur , Rub Respiratory: Yes: Regular, CTA Bilaterally. No: Rales, Rhonchi, Wheezes Gastrointestinal: Yes: Normal Bowel Sounds, Soft. No: Distention, Tenderness Extremities: Yes: WNL Edema: No Labs: CBC, BMP 03/12/19 06:40 03/15/19 05:25 INR, PTT INR 1.18 (0.83-1.09) H 03/06/19 05:20 Problem List - Problems (1) Anemia Code(s): D64.9 - ANEMIA, UNSPECIFIED Qualifiers: Anemia type: unspecified type Qualified Code(s): D64.9 - Anemia, unspecified (2) Syncope, near Code(s): R55 - SYNCOPE AND COLLAPSE (3) Hypotension Code(s): I95.9 - HYPOTENSION, UNSPECIFIED Qualifiers: Hypotension type: hypotension due to hypovolemia Qualified Code(s): I95.89 - Other hypotension; E86.1 - Hypovolemia (4) CKD (chronic kidney disease) Code(s): N18.9 - CHRONIC KIDNEY DISEASE, UNSPECIFIED (5) Chronic atrial fibrillation Code(s): I48.2 - CHRONIC ATRIAL FIBRILLATION (6) Abnormal TSH Code(s): R79.89 - OTHER SPECIFIED ABNORMAL FINDINGS OF BLOOD CHEMISTRY (7) CHF (congestive heart failure) Code(s): I50.9 - HEART FAILURE, UNSPECIFIED Qualifiers: Heart failure type: diastolic Heart failure chronicity: chronic Qualified Code(s): I50.32 - Chronic diastolic (congestive) heart failure (8) Diabetes Code(s): E11.9 - TYPE 2 DIABETES MELLITUS WITHOUT COMPLICATIONS Qualifiers: Diabetes mellitus type: type 2 Diabetes mellitus terminal carman insulin use: without terminal carman use (9) Hx of CABG Code(s): Z95.1 - PRESENCE OF AORTOCORONARY BYPASS GRAFT (10) Hyperlipidemia Code(s): E78.5 - HYPERLIPIDEMIA, UNSPECIFIED Qualifiers: Hyperlipidemia type: pure hypercholesterolemia Qualified Code(s): E78.00 - Pure hypercholesterolemia, unspecified; E78.0 - Pure hypercholesterolemia (11) Coumadin toxicity Code(s): T45.511A - POISONING BY ANTICOAGULANTS, ACCIDENTAL, INIT Qualifiers: Encounter type: initial encounter Injury intent: accidental or unintentional Qualified Code(s): T45.511A - Poisoning by anticoagulants, accidental (unintentional), initial encounter (12) Pleural effusion Code(s): J90 - PLEURAL EFFUSION, NOT ELSEWHERE CLASSIFIED Assessment/Plan (1) Anemia Assessment/Plan: -stable -continue xarelto Code(s): D64.9 - ANEMIA, UNSPECIFIED Qualifiers: Anemia type: unspecified type Qualified Code(s): D64.9 - Anemia, unspecified (2) Orthostatic hypotension Assessment/Plan: -currently resolved -midodrine weaned off Code(s): R55 - SYNCOPE AND COLLAPSE (3) Hypotension Assessment/Plan: -monitor Code(s): I95.9 - HYPOTENSION, UNSPECIFIED Qualifiers: Hypotension type: hypotension due to hypovolemia Qualified Code(s): I95.89 - Other hypotension; E86.1 - Hypovolemia (4) CKD (chronic kidney disease) Assessment/Plan: -stable Code(s): N18.9 - CHRONIC KIDNEY DISEASE, UNSPECIFIED (5) Chronic atrial fibrillation Assessment/Plan: -cardiology following -continue amiodarone and toprol xl -toprol xl increased to 100mg bid this admission -amiodarone decreased to 200mg daily -continue xarelto Code(s): I48.2 - CHRONIC ATRIAL FIBRILLATION (6) Abnormal TSH Assessment/Plan: -suspect secondary to amiodarone -FT4 normal Code(s): R79.89 - OTHER SPECIFIED ABNORMAL FINDINGS OF BLOOD CHEMISTRY (7) CHF (congestive heart failure) Assessment/Plan: -euvolemic -continue oral lasix Code(s): I50.9 - HEART FAILURE, UNSPECIFIED Qualifiers: Heart failure type: diastolic Heart failure chronicity: chronic Qualified Code(s): I50.32 - Chronic diastolic (congestive) heart failure (8) Diabetes Assessment/Plan: -diabetic diet -FSBS and SSI Code(s): E11.9 - TYPE 2 DIABETES MELLITUS WITHOUT COMPLICATIONS Qualifiers: Diabetes mellitus type: type 2 Diabetes mellitus skilled nursing insulin use: without terminal carman use (9) Hx of CABG Assessment/Plan: -noted Code(s): Z95.1 - PRESENCE OF AORTOCORONARY BYPASS GRAFT (10) Hyperlipidemia Assessment/Plan: -continue home regimen Code(s): E78.5 - HYPERLIPIDEMIA, UNSPECIFIED Qualifiers: Hyperlipidemia type: mixed hyperlipidemia Qualified Code(s): E78.2 - Mixed hyperlipidemia (11) Coumadin toxicity Assessment/Plan: -resolved -continue to monitor Code(s): T45.511A - POISONING BY ANTICOAGULANTS, ACCIDENTAL, INIT Qualifiers: Encounter type: initial encounter Injury intent: accidental or unintentional Qualified Code(s): T45.511A - Poisoning by anticoagulants, accidental (unintentional), initial encounter (12) R pleural effusion -fluid results negative for malignant cells -most likely secondary to CHF -resolved Dispo -plan for discharge to SNF in 48 hours
[2019-03-15] MEDS: RIVAROXABAN 15 MG TABLET PO SCH (17:16)
[2019-03-15] MEDS: ATORVASTATIN CA 80 MG TABLET (FP) PO SCH (22:38)
[2019-03-16] MEDS: INSULIN SLIDING SCALE (NOVOLOG) 1 VIAL SQ SCH ×4 (06:46→21:12)
[2019-03-16 07:49] LABS: BLOOD UREA NITROGEN 30.6 mg/dL (7-18); CALCIUM 9.4 mg/dL (8.5-10.1); CREATININE 1.2 mg/dL (0.55-1.3); MAGNESIUM 2.3 mg/dL (1.8-2.4); PHOSPHOROUS 2.7 mg/dL (2.5-4.9); POTASSIUM 3.9 mmol/L (3.5-5.1)
[2019-03-16 08:01] LABS: BASO % 0.8 % (0-2.0); EOS % 2.1 % (0-4.5); HEMATOCRIT 28.9 % (32.4-45.2); LYMPH % 11.7 % (8-40); MCH 31.2 pg (25.7-33.7); MCHC 34.5 g/dl (32.0-36.0); MEAN CELL VOLUME 90.4 fl (80-96); MEAN PLT VOLUME 8.6 fl (7.5-11.1); MONO % 7.6 % (3.8-10.2); NEUT % 77.8 % (42.8-82.8); PLATELET COUNT 364 K/MM3 (134-434); RDW 16.7 % (11.6-15.6); WHITE BLOOD COUNT 6.1 K/mm3 (4.0-10.0)
[2019-03-16] MEDS ORDERED: PT OWN MED DRAWER 7, Y5N ONE (09:05)
[2019-03-16] MEDS: DOCUSATE SODIUM 100 MG CAPSULE (FP) PO SCH ×2 (09:11→21:12)
[2019-03-16] MEDS: POLYETHYLENE GLYCOL 3350 119 GM BTL PO SCH ×2 (09:11→21:12)
[2019-03-16] MEDS: RANOLAZINE E.R. 500 MG TABLET (FP) PO SCH ×2 (09:12→21:12)
[2019-03-16] MEDS: AMIODARONE HCL 200 MG TABLET (FP) PO SCH (09:12)
[2019-03-16] MEDS: FOLIC ACID 1 MG TABLET (FP) PO SCH (09:13)
[2019-03-16] MEDS: CYANOCOBALAMIN 1,000 MCG TABLET (FP) PO SCH (09:14)
[2019-03-16] MEDS: VITAMIN E 400 INTERNATIONAL-UNITS CAPSULE (FP) PO SCH (09:14)
[2019-03-16] MEDS: FUROSEMIDE 40 MG TABLET (FP) PO SCH (09:14)
[2019-03-16] MEDS: MOMETASONE FUROATE 220 MCG/IH INHALER IH SCH ×2 (09:15→21:12)
--- NOTE | 2019-03-16 10:31 | PN ---
Progress Note (short form) - Note Progress Note: Resting in NAD. No CP or SOB. Afebrile. No acute events overnight. Intake & Output 03/13/19 03/14/19 03/15/19 03/16/19 23:59 23:59 23:59 23:59 Intake Total 610 1128 670 50 Output Total 8459 099 0441 800 Balance -1290 328 -330 -750 Weight 146 lb 145 lb 145 lb 0.4 oz 137 lb 9.6 oz Last Vital Signs Temp Pulse Resp BP Pulse Ox 97.7 F 87 20 114/59 L 99 03/16/19 09:18 03/16/19 09:18 03/16/19 09:18 03/16/19 09:18 03/16/19 09:19 Active Medications Acetaminophen (Tylenol -) 650 mg PO Q4H PRN PRN Reason: FEVER Amiodarone HCl (Cordarone -) 200 mg PO DAILY [facility] Last Admin: 03/16/19 09:12 Dose: 200 mg Atorvastatin Calcium (Lipitor -) 80 mg PO HS [facility] Last Admin: 03/15/19 22:38 Dose: 80 mg Cyanocobalamin (Vitamin B12 -) 1,000 mcg PO DAILY [facility] Last Admin: 03/16/19 09:14 Dose: 1,000 mcg Diltiazem HCl (Cardizem Injection -) 10 mg IVPUSH Q4H PRN PRN Reason: TACHYCARDIA Last Admin: 03/07/19 15:49 Dose: 10 mg Docusate Sodium (Colace -) 100 mg PO BID [facility] Last Admin: 03/16/19 09:11 Dose: Not Given Folic Acid (Folic Acid -) 1 mg PO DAILY [facility] Last Admin: 03/16/19 09:13 Dose: 1 mg Furosemide (Lasix -) 40 mg PO DAILY [facility] Last Admin: 03/16/19 09:14 Dose: 40 mg Insulin Aspart (Novolog Vial Sliding Scale -) 1 vial SQ ACHS [facility]; Protocol Last Admin: 03/16/19 06:46 Dose: 2 units Metoprolol Succinate (Toprol Xl -) 100 mg PO BID [facility] Last Admin: 03/16/19 09:13 Dose: 100 mg Mometasone Furoate (Asmanex 220mcg -) 1 puff IH BID [facility] Last Admin: 03/16/19 09:15 Dose: 1 puff Polyethylene Glycol (Miralax (For Daily Use) -) 17 gm PO BID [facility] Last Admin: 03/16/19 09:11 Dose: Not Given Ranolazine (Ranexa -) 500 mg PO BID [facility] Last Admin: 03/16/19 09:12 Dose: 500 mg Rivaroxaban (Xarelto) 15 mg PO DAILY@1800 [facility] Last Admin: 03/15/19 17:16 Dose: 15 mg Vitamin E (Vitamin E -) 400 unit PO DAILY [facility] Last Admin: 03/16/19 09:14 Dose: 400 unit Gen: NAD at rest Heart: RRR Lung: decreased breath sounds at the bases Abd: soft, nontender Ext: no edema Laboratory Results - last 24 hr 03/15/19 03/15/19 03/15/19 11:43 17:13 22:37 WBC RBC Hgb Hct MCV MCH MCHC RDW Plt Count MPV Absolute Neuts (auto) Neutrophils % Lymphocytes % Monocytes % Eosinophils % Basophils % Nucleated RBC % Sodium Potassium Chloride Carbon Dioxide Anion Gap BUN Creatinine Est GFR (CKD-EPI)AfAm Est GFR (CKD-EPI)NonAf POC Glucometer 151 143 117 Random Glucose Calcium Phosphorus Magnesium 03/16/19 03/16/19 03/16/19 05:42 06:30 06:30 WBC 6.1 RBC 3.20 L Hgb 10.0 L Hct 28.9 L MCV 90.4 MCH 31.2 MCHC 34.5 RDW 16.7 H Plt Count 364 MPV 8.6 Absolute Neuts (auto) 4.8 Neutrophils % 77.8 Lymphocytes % 11.7 Monocytes % 7.6 Eosinophils % 2.1 Basophils % 0.8 Nucleated RBC % 0 Sodium 141 Potassium 3.9 Chloride 102 Carbon Dioxide 32 Anion Gap 6 L BUN 30.6 H Creatinine 1.2 Est GFR (CKD-EPI)AfAm 47.72 Est GFR (CKD-EPI)NonAf 41.18 POC Glucometer 159 Random Glucose 151 H Calcium 9.4 Phosphorus 2.7 Magnesium 2.3 A/P Acute on Chronic Diastolic Heart Failure Paroxysmal Atrial Fibrillation Pleural Effusions s/p R thoracentesis: reactive lymphocytes / negative for malignant cells CAD s/p CABG COPD Acute on Chronic Renal Failure HTN DM Hyperlipidemia RESTREPO/Liver Cirrhosis - Lasix - inhaled bronchodilators - O2 to keep Spo2 >90% - rate control - Asmanex - continue anticoagulation - No Pulmonary contraindication for DC planning Dr Resendiz
--- NOTE | 2019-03-16 10:46 | PN ---
Progress Note, Physician Chief Complaint: Ms Alexis says she is doing better and is excited for discharge tomorrow. No dizziness on standing. Denies cp, sob, n/v. - Current Medication List Current Medications: Active Medications Acetaminophen (Tylenol -) 650 mg PO Q4H PRN PRN Reason: FEVER Amiodarone HCl (Cordarone -) 200 mg PO DAILY [facility] Last Admin: 03/16/19 09:12 Dose: 200 mg Atorvastatin Calcium (Lipitor -) 80 mg PO HS [facility] Last Admin: 03/15/19 22:38 Dose: 80 mg Cyanocobalamin (Vitamin B12 -) 1,000 mcg PO DAILY [facility] Last Admin: 03/16/19 09:14 Dose: 1,000 mcg Diltiazem HCl (Cardizem Injection -) 10 mg IVPUSH Q4H PRN PRN Reason: TACHYCARDIA Last Admin: 03/07/19 15:49 Dose: 10 mg Docusate Sodium (Colace -) 100 mg PO BID [facility] Last Admin: 03/16/19 09:11 Dose: Not Given Folic Acid (Folic Acid -) 1 mg PO DAILY [facility] Last Admin: 03/16/19 09:13 Dose: 1 mg Furosemide (Lasix -) 40 mg PO DAILY [facility] Last Admin: 03/16/19 09:14 Dose: 40 mg Insulin Aspart (Novolog Vial Sliding Scale -) 1 vial SQ [facility]; Protocol Last Admin: 03/16/19 06:46 Dose: 2 units Metoprolol Succinate (Toprol Xl -) 100 mg PO BID [facility] Last Admin: 03/16/19 09:13 Dose: 100 mg Mometasone Furoate (Asmanex 220mcg -) 1 puff IH BID [facility] Last Admin: 03/16/19 09:15 Dose: 1 puff Polyethylene Glycol (Miralax (For Daily Use) -) 17 gm PO BID [facility] Last Admin: 03/16/19 09:11 Dose: Not Given Ranolazine (Ranexa -) 500 mg PO BID [facility] Last Admin: 03/16/19 09:12 Dose: 500 mg Rivaroxaban (Xarelto) 15 mg PO DAILY@1800 [facility] Last Admin: 03/15/19 17:16 Dose: 15 mg Vitamin E (Vitamin E -) 400 unit PO DAILY [facility] Last Admin: 03/16/19 09:14 Dose: 400 unit - Objective Vital Signs: Vital Signs Temperature 36.5 C 03/16/19 09:18 Pulse Rate 87 03/16/19 09:18 Respiratory Rate 20 03/16/19 09:18 Blood Pressure 114/59 L 03/16/19 09:18 O2 Sat by Pulse Oximetry (%) 99 03/16/19 09:19 Constitutional: Yes: Well Nourished, No Distress, Calm Cardiovascular: Yes: Regular Rate and Rhythm. No: Gallop, Murmur, Rub Respiratory: Yes: Regular, CTA Bilaterally. No: Rales, Rhonchi, Wheezes Gastrointestinal: Yes: Normal Bowel Sounds, Soft. No: Distention, Tenderness Extremities: Yes: WNL Edema: No Labs: CBC, BMP 03/16/19 06:30 03/16/19 06:30 INR, PTT INR 1.18 (0.83-1.09) H 03/06/19 05:20 Problem List - Problems (1) Anemia Code(s): D64.9 - ANEMIA, UNSPECIFIED Qualifiers: Anemia type: unspecified type Qualified Code(s): D64.9 - Anemia, unspecified (2) Syncope, near Code(s): R55 - SYNCOPE AND COLLAPSE (3) Hypotension Code(s): I95.9 - HYPOTENSION, UNSPECIFIED Qualifiers: Hypotension type: hypotension due to hypovolemia Qualified Code(s): I95.89 - Other hypotension; E86.1 - Hypovolemia (4) CKD (chronic kidney disease) Code(s): N18.9 - CHRONIC KIDNEY DISEASE, UNSPECIFIED (5) Chronic atrial fibrillation Code(s): I48.2 - CHRONIC ATRIAL FIBRILLATION (6) Abnormal TSH Code(s): R79.89 - OTHER SPECIFIED ABNORMAL FINDINGS OF BLOOD CHEMISTRY (7) CHF (congestive heart failure) Code(s): I50.9 - HEART FAILURE, UNSPECIFIED Qualifiers: Heart failure type: diastolic Heart failure chronicity: chronic Qualified Code(s): I50.32 - Chronic diastolic (congestive) heart failure (8) Diabetes Code(s): E11.9 - TYPE 2 DIABETES MELLITUS WITHOUT COMPLICATIONS Qualifiers: Diabetes mellitus type: type 2 Diabetes mellitus half-way insulin use: without half-way use (9) Hx of CABG Code(s): Z95.1 - PRESENCE OF AORTOCORONARY BYPASS GRAFT (10) Hyperlipidemia Code(s): E78.5 - HYPERLIPIDEMIA, UNSPECIFIED Qualifiers: Hyperlipidemia type: pure hypercholesterolemia Qualified Code(s): E78.00 - Pure hypercholesterolemia, unspecified; E78.0 - Pure hypercholesterolemia (11) Coumadin toxicity Code(s): T45.511A - POISONING BY ANTICOAGULANTS, ACCIDENTAL, INIT Qualifiers: Encounter type: initial encounter Injury intent: accidental or unintentional Qualified Code(s): T45.511A - Poisoning by anticoagulants, accidental (unintentional), initial encounter (12) Pleural effusion Code(s): J90 - PLEURAL EFFUSION, NOT ELSEWHERE CLASSIFIED Assessment/Plan (1) Anemia Assessment/Plan: -stable -continue xarelto Code(s): D64.9 - ANEMIA, UNSPECIFIED Qualifiers: Anemia type: unspecified type Qualified Code(s): D64.9 - Anemia, unspecified (2) Orthostatic hypotension Assessment/Plan: -currently resolved -midodrine weaned off -tolerating well off of midodrine Code(s): R55 - SYNCOPE AND COLLAPSE (3) Hypotension Assessment/Plan: -monitor Code(s): I95.9 - HYPOTENSION, UNSPECIFIED Qualifiers: Hypotension type: hypotension due to hypovolemia Qualified Code(s): I95.89 - Other hypotension; E86.1 - Hypovolemia (4) CKD (chronic kidney disease) Assessment/Plan: -stable Code(s): N18.9 - CHRONIC KIDNEY DISEASE, UNSPECIFIED (5) Chronic atrial fibrillation Assessment/Plan: -cardiology following -continue amiodarone and toprol xl -toprol xl increased to 100mg bid this admission -amiodarone decreased to 200mg daily -continue xarelto Code(s): I48.2 - CHRONIC ATRIAL FIBRILLATION (6) Abnormal TSH Assessment/Plan: -suspect secondary to amiodarone -FT4 normal Code(s): R79.89 - OTHER SPECIFIED ABNORMAL FINDINGS OF BLOOD CHEMISTRY (7) CHF (congestive heart failure) Assessment/Plan: -euvolemic -continue oral lasix Code(s): I50.9 - HEART FAILURE, UNSPECIFIED Qualifiers: Heart failure type: diastolic Heart failure chronicity: chronic Qualified Code(s): I50.32 - Chronic diastolic (congestive) heart failure (8) Diabetes Assessment/Plan: -diabetic diet -FSBS and SSI Code(s): E11.9 - TYPE 2 DIABETES MELLITUS WITHOUT COMPLICATIONS Qualifiers: Diabetes mellitus type: type 2 Diabetes mellitus lobsterman insulin use: without half-way use (9) Hx of CABG Assessment/Plan: -noted Code(s): Z95.1 - PRESENCE OF AORTOCORONARY BYPASS GRAFT (10) Hyperlipidemia Assessment/Plan: -continue home regimen Code(s): E78.5 - HYPERLIPIDEMIA, UNSPECIFIED Qualifiers: Hyperlipidemia type: mixed hyperlipidemia Qualified Code(s): E78.2 - Mixed hyperlipidemia (11) Coumadin toxicity Assessment/Plan: -resolved -continue to monitor Code(s): T45.511A - POISONING BY ANTICOAGULANTS, ACCIDENTAL, INIT Qualifiers: Encounter type: initial encounter Injury intent: accidental or unintentional Qualified Code(s): T45.511A - Poisoning by anticoagulants, accidental (unintentional), initial encounter (12) R pleural effusion -fluid results negative for malignant cells -most likely secondary to CHF -resolved Dispo -plan for discharge to SNF in 24 hours
--- NOTE | 2019-03-16 11:07 | PN ---
Progress Note, Physician History of Present Illness: Resting comfortably w/o dyspnea or orthopnea off O2, afib remains rate- controlled after medication adjustments. Not orthostatic after weaned off midodrine. - Current Medication List Current Medications: Active Medications Acetaminophen (Tylenol -) 650 mg PO Q4H PRN PRN Reason: FEVER Amiodarone HCl (Cordarone -) 200 mg PO DAILY [facility] Last Admin: 03/16/19 09:12 Dose: 200 mg Atorvastatin Calcium (Lipitor -) 80 mg PO HS [facility] Last Admin: 03/15/19 22:38 Dose: 80 mg Cyanocobalamin (Vitamin B12 -) 1,000 mcg PO DAILY [facility] Last Admin: 03/16/19 09:14 Dose: 1,000 mcg Diltiazem HCl (Cardizem Injection -) 10 mg IVPUSH Q4H PRN PRN Reason: TACHYCARDIA Last Admin: 03/07/19 15:49 Dose: 10 mg Docusate Sodium (Colace -) 100 mg PO BID [facility] Last Admin: 03/16/19 09:11 Dose: Not Given Folic Acid (Folic Acid -) 1 mg PO DAILY [facility] Last Admin: 03/16/19 09:13 Dose: 1 mg Furosemide (Lasix -) 40 mg PO DAILY [facility] Last Admin: 03/16/19 09:14 Dose: 40 mg Insulin Aspart (Novolog Vial Sliding Scale -) 1 vial SQ ACHS [facility]; Protocol Last Admin: 03/16/19 06:46 Dose: 2 units Metoprolol Succinate (Toprol Xl -) 100 mg PO BID [facility] Last Admin: 03/16/19 09:13 Dose: 100 mg Mometasone Furoate (Asmanex 220mcg -) 1 puff IH BID [facility] Last Admin: 03/16/19 09:15 Dose: 1 puff Polyethylene Glycol (Miralax (For Daily Use) -) 17 gm PO BID [facility] Last Admin: 03/16/19 09:11 Dose: Not Given Ranolazine (Ranexa -) 500 mg PO BID [facility] Last Admin: 03/16/19 09:12 Dose: 500 mg Rivaroxaban (Xarelto) 15 mg PO DAILY@1800 [facility] Last Admin: 03/15/19 17:16 Dose: 15 mg Vitamin E (Vitamin E -) 400 unit PO DAILY [facility] Last Admin: 03/16/19 09:14 Dose: 400 unit - Objective Vital Signs: Vital Signs Temperature 97.7 F 03/16/19 09:18 Pulse Rate 87 03/16/19 09:18 Respiratory Rate 20 03/16/19 09:18 Blood Pressure 114/59 L 03/16/19 09:18 O2 Sat by Pulse Oximetry (%) 99 03/16/19 09:19 Constitutional: Yes: No Distress, Calm Neck: Yes: Supple Cardiovascular: Yes: Pulse Irregular Respiratory: Yes: Regular, CTA Bilaterally Gastrointestinal: Yes: Normal Bowel Sounds, Soft Edema: No Labs: CBC, BMP 03/16/19 06:30 03/16/19 06:30 INR, PTT INR 1.18 (0.83-1.09) H 03/06/19 05:20 - ....Imaging EKG: Report Reviewed (Tele: Rate-controlled afib w/o sig pauses) Problem List - Problems (1) Abnormal TSH Code(s): R79.89 - OTHER SPECIFIED ABNORMAL FINDINGS OF BLOOD CHEMISTRY (2) Anemia Code(s): D64.9 - ANEMIA, UNSPECIFIED Qualifiers: Anemia type: unspecified type Qualified Code(s): D64.9 - Anemia, unspecified (3) Hypotension Code(s): I95.9 - HYPOTENSION, UNSPECIFIED Qualifiers: Hypotension type: hypotension due to hypovolemia Qualified Code(s): I95.89 - Other hypotension; E86.1 - Hypovolemia (4) Mesenteric mass Code(s): K63.89 - OTHER SPECIFIED DISEASES OF INTESTINE (5) Portal hypertensive gastropathy Code(s): K76.6 - PORTAL HYPERTENSION; K31.89 - OTHER DISEASES OF STOMACH AND DUODENUM (6) [id number] kidney injury Code(s): N17.9 - ACUTE KIDNEY FAILURE, UNSPECIFIED; N18.9 - CHRONIC KIDNEY DISEASE, UNSPECIFIED Qualifiers: Chronic kidney disease stage: stage 2 (mild) (7) CHF (congestive heart failure) Code(s): I50.9 - HEART FAILURE, UNSPECIFIED Qualifiers: Heart failure type: diastolic Heart failure chronicity: chronic Qualified Code(s): I50.32 - Chronic diastolic (congestive) heart failure (8) Hx of CABG Code(s): Z95.1 - PRESENCE OF AORTOCORONARY BYPASS GRAFT (9) Hyperlipidemia Code(s): E78.5 - HYPERLIPIDEMIA, UNSPECIFIED Qualifiers: Hyperlipidemia type: pure hypercholesterolemia Qualified Code(s): E78.00 - Pure hypercholesterolemia, unspecified; E78.0 - Pure hypercholesterolemia (10) Hypertension Code(s): I10 - ESSENTIAL (PRIMARY) HYPERTENSION Qualifiers: Hypertension type: essential hypertension Qualified Code(s): I10 - Essential (primary) hypertension (11) Paroxysmal atrial fibrillation with rapid ventricular response Code(s): I48.0 - PAROXYSMAL ATRIAL FIBRILLATION (12) Syncope, near Code(s): R55 - SYNCOPE AND COLLAPSE Assessment/Plan 02/02/2019 Chest CTA: No PE, increased bilateral pleural effusions R>L c/w pulm vascular congestion 02/01/2019 Lexiscan Myoview: No ischemia, LVEF 48% 02/02/2019 Echo: Mild cLVH normal LV and RV size and fxn, mild LAE, mild , tr TR RVSP 23 mmHg, pleural effusion 12/08/2018 Echo: cLVH with normal LVEF 65-70%, mild LAE 4.6 cm, mild CHILO, normal RV size and fxn, mild MR, mild-mod TR RVSP 31 mmHg 1. Weakness, fatigue, positional near syncope due to hypovolemic hypotension resolved 2. Chronic anemia with history of diverticulosis and gastritis 3. Acute on chronic diastolic heart failure and bilateral pleural effusions (R>L ) post R thoracentesis: reactive lymphocytes / negative for malignant cells 4. Persistent AF with improved rate-control 5. CAD s/p CABG, PCI, angina 6. Type 2 DM 7. Hyperlipidemia 8. Acute on CKD 9. HTN 10. RESTREPO with cirrhosis, cholelithiasis 11. 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 Abnormal TSH, ? sick euthyroid vs Amiodarone effects PLAN: 1. Resumed home dose Lasix 40 po qd with monitor diuretic response, renal fxn and electrolytes 2. Continue renal-dosed Xarelto 15 mg QD 3. Continue Toprol XL 100 mg BID, weaned off midodrine 5 bid 4. Continue Ranexa 500 mg BID, Amiodarone 200 mg QD, Lipitor 80 mg QD and eventually Vascepa 2 mg BID 5. Bronchodilator and O2 as needed 6. CT with contrast when renal function permits to assess status of mesenteric mass and exclude other occult neoplasm ? hepatoma 7. PT->SNF, anticipate d/c tomorrow
--- NOTE | 2019-03-16 13:42 | CON.GU ---
Consult Consult Specialty:: Urology Referred by:: Dr Hampton Reason for Consultation:: Urinary retention - History of Present Illness Chief Complaint: unable to void History of Present Illness: 83 yo lady awaiting tx to rehab facility failed recent voiding trial. Pt state no problem prior to admission other then urgency. No hematuria or dysuria - Past Medical History Cardio/Vascular: Yes: CAD, CHF, HTN, Hyperlipdemia Pulmonary: Yes: Other (Stable lung nodules) Gastrointestinal: Yes: Diverticulosis, Gastritis Hepatobiliary: Yes: Cirrhosis (RESTREPO related), Cholelithiasis, Other (Mevacor induced hepatitis in 1994) ...: No Psych: Yes: Anxiety Endocrine: Yes: Diabetes Mellitus Additional Medical History: Mesenteric mass of undetermined etiology since 2015 - Past Surgical History Past Surgical History: Yes: CABG, Hysterectomy Additional Surgical History: Ovarian cystectomy 2013= benign. 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 History of Recent Travel: No Home Medications - Allergies Allergies/Adverse Reactions: Allergies Allergy/AdvReac Type Severity Reaction Status Date / Time pollen extracts Allergy Unknown Verified 02/01/19 18:48 HONEYDEW Allergy Severe Difficulty Uncoded 02/01/19 18:48 Breathing HAYFEVER,GRASS,POLLEN Allergy Uncoded 02/01/19 18:48 - Home Medications Home Medications: Ambulatory Orders Ranolazine [Ranexa] 500 mg PO BID 11/25/11 Folic Acid - 400 mcg PO ASDIR 02/16/12 Tiotropium Tower [Spiriva] 18 mcg IH DAILY PRN 02/09/15 Albuterol Sulfate [Proair Respiclick] 90 mcg IH BID PRN 03/18/16 Beclomethasone Dipropionate [Qvar] 0.04 mg IH BID 03/18/16 Furosemide [Lasix -] 40 mg PO DAILY 03/18/16 Glucosamine/D3/Boswellia Eda [Osteo Bi-Flex Caplet] 1 tab PO BID 03/18/16 Iron,Carbonyl [Feosol] 65 mg PO DAILY 03/18/16 Mometasone Furoate [Asmanex] 220 mcg IH BID PRN 03/18/16 Amiodarone HCl 200 mg PO BID 02/01/19 Atorvastatin Ca [Lipitor] 80 mg PO HS 02/01/19 Cyanocobalamin (Vitamin B-12) [Vitamin B-12] 1,000 mcg PO DAILY 02/01/19 Icosapent Ethyl [Vascepa] 2 gm PO BID 02/01/19 Losartan Potassium 25 mg PO DAILY 02/01/19 Metoprolol Succinate [Toprol Xl] 50 mg PO BID 02/01/19 Sitagliptin Phos/Metformin HCl [Janumet 50-1,000 mg Tablet] 1 each PO BID Vitamin E 1 tab PO DAILY 02/01/19 Aspirin 81 mg PO DAILY 03/03/19 Isosorbide Mononitrate [Imdur -] 30 mg PO DAILY 03/03/19 Sitagliptin Phosphate [Januvia] 25 mg PO DAILY 03/03/19 Family Disease History - Family Disease History Family Disease History: Diabetes: Mother, Heart Disease: Mother, CA: Father Other Family History: Maternal GM had Hodgkins Disease. Matr uncle had gastric cancer Review of Systems - Review of Systems Cardiovascular: reports: No Symptoms Respiratory: reports: No Symptoms Gastrointestinal: reports: No Symptoms Genitourinary: reports: No Symptoms (AUR) Physical Exam- Vital Signs: Vital Signs Temperature 97.7 F 03/16/19 09:18 Pulse Rate 87 03/16/19 09:18 Respiratory Rate 20 03/16/19 09:18 Blood Pressure 114/59 L 03/16/19 09:18 O2 Sat by Pulse Oximetry (%) 99 03/16/19 09:19 Labs: CBC, BMP 03/16/19 06:30 03/16/19 06:30 Imaging - Results Cat Scan: Report Reviewed Problem List - Problems (1) Urinary retention Assessment/Plan: AUR chacon to sd Consider trial alpha danny and repeat voiding trial as pt was voiding well prior and recent constipation now resolved. If fails would need urodynamics Code(s): R33.9 - RETENTION OF URINE, UNSPECIFIED (2) Urinary retention Code(s): R33.9 - RETENTION OF URINE, UNSPECIFIED (3) Renal calculus, left Assessment/Plan: Follow asymptomatic 4 mm left renal calc. Code(s): N20.0 - CALCULUS OF KIDNEY (4) Renal calculus, left Code(s): N20.0 - CALCULUS OF KIDNEY
[2019-03-16] MEDS: RIVAROXABAN 15 MG TABLET PO SCH (17:53)
[2019-03-16] MEDS ORDERED: INSULIN SLIDING SCALE (NOVOLOG) 1 VIAL SQ ONE (19:20)
[2019-03-16] MEDS: ATORVASTATIN CA 80 MG TABLET (FP) PO SCH (21:12)
[2019-03-17] MEDS: INSULIN SLIDING SCALE (NOVOLOG) 1 VIAL SQ SCH ×4 (07:03→21:46)
[2019-03-17 07:35] LABS: BASO % 0.7 % (0-2.0); EOS % 2.1 % (0-4.5); HEMATOCRIT 29.4 % (32.4-45.2); LYMPH % 12.9 % (8-40); MCHC 34.1 g/dl (32.0-36.0); MEAN PLT VOLUME 8.6 fl (7.5-11.1); MONO % 6.8 % (3.8-10.2); NEUT % 77.5 % (42.8-82.8); PLATELET COUNT 357 K/MM3 (134-434); RBC 3.23 M/mm3 (3.60-5.2); RDW 16.5 % (11.6-15.6); WHITE BLOOD COUNT 6.3 K/mm3 (4.0-10.0)
[2019-03-17 08:20] LABS: BLOOD UREA NITROGEN 31.8 mg/dL (7-18); CALCIUM 9.4 mg/dL (8.5-10.1); CREATININE 1.2 mg/dL (0.55-1.3); MAGNESIUM 2.4 mg/dL (1.8-2.4); PHOSPHOROUS 3.3 mg/dL (2.5-4.9); POTASSIUM 3.8 mmol/L (3.5-5.1)
--- NOTE | 2019-03-17 09:42 | PN ---
Progress Note, Physician Chief Complaint: Ms Alexis had an episode of orthostatic hypotension with dizziness this morning. No cp, sob, n/v. - Current Medication List Current Medications: Active Medications Acetaminophen (Tylenol -) 650 mg PO Q4H PRN PRN Reason: FEVER Amiodarone HCl (Cordarone -) 200 mg PO DAILY [facility] Last Admin: 03/16/19 09:12 Dose: 200 mg Atorvastatin Calcium (Lipitor -) [address] [facility] Last Admin: 03/16/19 21:12 Dose: 80 mg Cyanocobalamin (Vitamin B12 -) 1,000 mcg PO DAILY [facility] Last Admin: 03/16/19 09:14 Dose: 1,000 mcg Diltiazem HCl (Cardizem Injection -) 10 mg IVPUSH Q4H PRN PRN Reason: TACHYCARDIA Last Admin: 03/07/19 15:49 Dose: 10 mg Docusate Sodium (Colace -) 100 mg PO BID [facility] Last Admin: 03/16/19 21:12 Dose: Not Given Folic Acid (Folic Acid -) 1 mg PO DAILY [facility] Last Admin: 03/16/19 09:13 Dose: 1 mg Furosemide (Lasix -) 40 mg PO DAILY [facility] Last Admin: 03/16/19 09:14 Dose: 40 mg Insulin Aspart (Novolog Vial Sliding Scale -) 1 vial SQ [facility]; Protocol Last Admin: 03/17/19 07:03 Dose: Not Given Metoprolol Succinate (Toprol Xl -) 100 mg PO BID [facility] Last Admin: 03/16/19 21:12 Dose: 100 mg Midodrine (Proamatine -) 5 mg PO BID-MID [facility] Mometasone Furoate (Asmanex 220mcg -) 1 puff IH BID [facility] Last Admin: 03/16/19 21:12 Dose: 1 puff Polyethylene Glycol (Miralax (For Daily Use) -) 17 gm PO BID [facility] Last Admin: 03/16/19 21:12 Dose: Not Given Ranolazine (Ranexa -) 500 mg PO BID [facility] Last Admin: 03/16/19 21:12 Dose: 500 mg Rivaroxaban (Xarelto) 15 mg PO DAILY@1800 [facility] Last Admin: 03/16/19 17:53 Dose: 15 mg Tamsulosin HCl (Flomax -) 0.[address] [facility] Vitamin E (Vitamin E -) 400 unit PO DAILY [facility] Last Admin: 03/16/19 09:14 Dose: 400 unit - Objective Vital Signs: Vital Signs Temperature 36.6 C 03/17/19 08:27 Pulse Rate 88 03/17/19 08:27 Respiratory Rate 20 03/17/19 08:27 Blood Pressure 114/61 03/17/19 08:27 O2 Sat by Pulse Oximetry (%) 98 03/16/19 21:00 Constitutional: Yes: Well Nourished, No Distress, Calm Cardiovascular: Yes: Regular Rate and Rhythm. No: Gallop, Murmur, Rub Respiratory: Yes: Regular, CTA Bilaterally. No: Rales, Rhonchi, Wheezes Gastrointestinal: Yes: Normal Bowel Sounds, Soft. No: Distention, Tenderness Extremities: Yes: WNL Edema: No Labs: CBC, BMP 03/17/19 06:45 03/17/19 06:45 INR, PTT INR 1.18 (0.83-1.09) H 03/06/19 05:20 Problem List - Problems (1) Anemia Code(s): D64.9 - ANEMIA, UNSPECIFIED Qualifiers: Anemia type: unspecified type Qualified Code(s): D64.9 - Anemia, unspecified (2) Syncope, near Code(s): R55 - SYNCOPE AND COLLAPSE (3) Hypotension Code(s): I95.9 - HYPOTENSION, UNSPECIFIED Qualifiers: Hypotension type: hypotension due to hypovolemia Qualified Code(s): I95.89 - Other hypotension; E86.1 - Hypovolemia (4) CKD (chronic kidney disease) Code(s): N18.9 - CHRONIC KIDNEY DISEASE, UNSPECIFIED (5) Chronic atrial fibrillation Code(s): I48.2 - CHRONIC ATRIAL FIBRILLATION (6) Abnormal TSH Code(s): R79.89 - OTHER SPECIFIED ABNORMAL FINDINGS OF BLOOD CHEMISTRY (7) CHF (congestive heart failure) Code(s): I50.9 - HEART FAILURE, UNSPECIFIED Qualifiers: Heart failure type: diastolic Heart failure chronicity: chronic Qualified Code(s): I50.32 - Chronic diastolic (congestive) heart failure (8) Diabetes Code(s): E11.9 - TYPE 2 DIABETES MELLITUS WITHOUT COMPLICATIONS Qualifiers: Diabetes mellitus type: type 2 Diabetes mellitus [employer] 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 insulin use: without senior care use (9) Hx of CABG Code(s): Z95.1 - PRESENCE OF AORTOCORONARY BYPASS GRAFT (10) Hyperlipidemia Code(s): E78.5 - HYPERLIPIDEMIA, UNSPECIFIED Qualifiers: Hyperlipidemia type: pure hypercholesterolemia Qualified Code(s): E78.00 - Pure hypercholesterolemia, unspecified; E78.0 - Pure hypercholesterolemia (11) Coumadin toxicity Code(s): T45.511A - POISONING BY ANTICOAGULANTS, ACCIDENTAL, INIT Qualifiers: Encounter type: initial encounter Injury intent: accidental or unintentional Qualified Code(s): T45.511A - Poisoning by anticoagulants, accidental (unintentional), initial encounter (12) Pleural effusion Code(s): J90 - PLEURAL EFFUSION, NOT ELSEWHERE CLASSIFIED Assessment/Plan (1) Anemia Assessment/Plan: -stable -continue xarelto Code(s): D64.9 - ANEMIA, UNSPECIFIED Qualifiers: Anemia type: unspecified type Qualified Code(s): D64.9 - Anemia, unspecified (2) Orthostatic hypotension Assessment/Plan: -recurred this am -case d/w Dr Villasenor -restart midodrine, order bid -recheck in am -possible discharge tomorrow to SNF Code(s): R55 - SYNCOPE AND COLLAPSE (3) Hypotension Assessment/Plan: -monitor Code(s): I95.9 - HYPOTENSION, UNSPECIFIED Qualifiers: Hypotension type: hypotension due to hypovolemia Qualified Code(s): I95.89 - Other hypotension; E86.1 - Hypovolemia (4) CKD (chronic kidney disease) Assessment/Plan: -stable Code(s): N18.9 - CHRONIC KIDNEY DISEASE, UNSPECIFIED (5) Chronic atrial fibrillation Assessment/Plan: -cardiology following -continue amiodarone and toprol xl -toprol xl increased to 100mg bid this admission -amiodarone decreased to 200mg daily -continue xarelto Code(s): I48.2 - CHRONIC ATRIAL FIBRILLATION (6) Abnormal TSH Assessment/Plan: -suspect secondary to amiodarone -FT4 normal Code(s): R79.89 - OTHER SPECIFIED ABNORMAL FINDINGS OF BLOOD CHEMISTRY (7) CHF (congestive heart failure) Assessment/Plan: -euvolemic -continue oral lasix Code(s): I50.9 - HEART FAILURE, UNSPECIFIED Qualifiers: Heart failure type: diastolic Heart failure chronicity: chronic Qualified Code(s): I50.32 - Chronic diastolic (congestive) heart failure (8) Diabetes Assessment/Plan: -diabetic diet -FSBS and SSI Code(s): E11.9 - TYPE 2 DIABETES MELLITUS WITHOUT COMPLICATIONS Qualifiers: Diabetes mellitus type: type 2 Diabetes mellitus [employer] 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 insulin use: without senior care use (9) Hx of CABG Assessment/Plan: -noted Code(s): Z95.1 - PRESENCE OF AORTOCORONARY BYPASS GRAFT (10) Hyperlipidemia Assessment/Plan: -continue home regimen Code(s): E78.5 - HYPERLIPIDEMIA, UNSPECIFIED Qualifiers: Hyperlipidemia type: mixed hyperlipidemia Qualified Code(s): E78.2 - Mixed hyperlipidemia (11) Coumadin toxicity Assessment/Plan: -resolved -continue to monitor Code(s): T45.511A - POISONING BY ANTICOAGULANTS, ACCIDENTAL, INIT Qualifiers: Encounter type: initial encounter Injury intent: accidental or unintentional Qualified Code(s): T45.511A - Poisoning by anticoagulants, accidental (unintentional), initial encounter (12) R pleural effusion -fluid results negative for malignant cells -most likely secondary to CHF -resolved (13) Urine retention -begin flomax at night to prevent blood pressure drop -see if can remove chacon after being on flomax -trial can be done as an outpatient
[2019-03-17] MEDS: RANOLAZINE E.R. 500 MG TABLET (FP) PO SCH ×2 (10:26→21:45)
[2019-03-17] MEDS: DOCUSATE SODIUM 100 MG CAPSULE (FP) PO SCH ×2 (10:26→21:45)
[2019-03-17] MEDS: FUROSEMIDE 40 MG TABLET (FP) PO SCH (10:26)
[2019-03-17] MEDS: FOLIC ACID 1 MG TABLET (FP) PO SCH (10:26)
[2019-03-17] MEDS: POLYETHYLENE GLYCOL 3350 119 GM BTL PO SCH ×2 (10:26→21:46)
[2019-03-17] MEDS: MOMETASONE FUROATE 220 MCG/IH INHALER IH SCH ×2 (10:26→21:45)
[2019-03-17] MEDS: AMIODARONE HCL 200 MG TABLET (FP) PO SCH (10:26)
[2019-03-17] MEDS: CYANOCOBALAMIN 1,000 MCG TABLET (FP) PO SCH (10:26)
--- NOTE | 2019-03-17 10:44 | PN ---
Progress Note, Physician History of Present Illness: Resting comfortably w/o dyspnea or orthopnea on O2 NC, afib remains rate- controlled after medication adjustments. Recurrent episode of orthostatic hypotension with dizziness this morning resumed on midodrine. Started on Flomax for urinary retention and then f/u voiding trial. - Current Medication List Current Medications: Active Medications Acetaminophen (Tylenol -) 650 mg PO Q4H PRN PRN Reason: FEVER Amiodarone HCl (Cordarone -) 200 mg PO DAILY [facility] Last Admin: 03/17/19 10:26 Dose: 200 mg Atorvastatin Calcium (Lipitor -) 80 mg PO HS [facility] Last Admin: 03/16/19 21:12 Dose: 80 mg Cyanocobalamin (Vitamin B12 -) 1,000 mcg PO DAILY [facility] Last Admin: 03/17/19 10:26 Dose: 1,000 mcg Diltiazem HCl (Cardizem Injection -) 10 mg IVPUSH Q4H PRN PRN Reason: TACHYCARDIA Last Admin: 03/07/19 15:49 Dose: 10 mg Docusate Sodium (Colace -) 100 mg PO BID [facility] Last Admin: 03/17/19 10:26 Dose: Not Given Folic Acid (Folic Acid -) 1 mg PO DAILY [facility] Last Admin: 03/17/19 10:26 Dose: 1 mg Furosemide (Lasix -) 40 mg PO DAILY [facility] Last Admin: 03/17/19 10:26 Dose: 40 mg Insulin Aspart (Novolog Vial Sliding Scale -) 1 vial SQ [facility]; Protocol Last Admin: 03/17/19 07:03 Dose: Not Given Metoprolol Succinate (Toprol Xl -) 100 mg PO BID [facility] Last Admin: 03/17/19 10:26 Dose: 100 mg Midodrine (Proamatine -) 5 mg PO BID-MID [facility] Mometasone Furoate (Asmanex 220mcg -) 1 puff IH BID [facility] Last Admin: 03/17/19 10:26 Dose: 1 puff Polyethylene Glycol (Miralax (For Daily Use) -) 17 gm PO BID [facility] Last Admin: 03/17/19 10:26 Dose: Not Given Ranolazine (Ranexa -) 500 mg PO BID [facility] Last Admin: 03/17/19 10:26 Dose: 500 mg Rivaroxaban (Xarelto) 15 mg PO DAILY@1800 [facility] Last Admin: 03/16/19 17:53 Dose: 15 mg Tamsulosin HCl (Flomax -) 0.4 mg PO [facility] Vitamin E (Vitamin E -) 400 unit PO DAILY [facility] Last Admin: 03/16/19 09:14 Dose: 400 unit - Objective Vital Signs: Vital Signs Temperature 97.8 F 03/17/19 08:27 Pulse Rate 88 03/17/19 08:27 Respiratory Rate 20 03/17/19 08:27 Blood Pressure 114/61 03/17/19 08:27 O2 Sat by Pulse Oximetry (%) 98 03/16/19 21:00 Constitutional: Yes: No Distress, Calm Neck: Yes: Supple Cardiovascular: Yes: Pulse Irregular Respiratory: Yes: Regular, Diminished, On Nasal O2 Gastrointestinal: Yes: Normal Bowel Sounds, Soft Genitourinary: Yes: Sharp Present Edema: No Labs: CBC, BMP 03/17/19 06:45 03/17/19 06:45 INR, PTT INR 1.18 (0.83-1.09) H 03/06/19 05:20 - ....Imaging EKG: Report Reviewed (Tele: Rate-controlled afib w/o sig pauses) Problem List - Problems (1) Abnormal TSH Code(s): R79.89 - OTHER SPECIFIED ABNORMAL FINDINGS OF BLOOD CHEMISTRY (2) Anemia Code(s): D64.9 - ANEMIA, UNSPECIFIED Qualifiers: Anemia type: unspecified type Qualified Code(s): D64.9 - Anemia, unspecified (3) Hypotension Code(s): I95.9 - HYPOTENSION, UNSPECIFIED Qualifiers: Hypotension type: hypotension due to hypovolemia Qualified Code(s): I95.89 - Other hypotension; E86.1 - Hypovolemia (4) Mesenteric mass Code(s): K63.89 - OTHER SPECIFIED DISEASES OF INTESTINE (5) Portal hypertensive gastropathy Code(s): K76.6 - PORTAL HYPERTENSION; K31.89 - OTHER DISEASES OF STOMACH AND DUODENUM (6) Jjqcu-ch-auaraci kidney injury Code(s): N17.9 - ACUTE KIDNEY FAILURE, UNSPECIFIED; N18.9 - CHRONIC KIDNEY DISEASE, UNSPECIFIED Qualifiers: Chronic kidney disease stage: stage 2 (mild) (7) CHF (congestive heart failure) Code(s): I50.9 - HEART FAILURE, UNSPECIFIED Qualifiers: Heart failure type: diastolic Heart failure chronicity: chronic Qualified Code(s): I50.32 - Chronic diastolic (congestive) heart failure (8) Hx of CABG Code(s): Z95.1 - PRESENCE OF AORTOCORONARY BYPASS GRAFT (9) Hyperlipidemia Code(s): E78.5 - HYPERLIPIDEMIA, UNSPECIFIED Qualifiers: Hyperlipidemia type: pure hypercholesterolemia Qualified Code(s): E78.00 - Pure hypercholesterolemia, unspecified; E78.0 - Pure hypercholesterolemia (10) Hypertension Code(s): I10 - ESSENTIAL (PRIMARY) HYPERTENSION Qualifiers: Hypertension type: essential hypertension Qualified Code(s): I10 - Essential (primary) hypertension (11) Paroxysmal atrial fibrillation with rapid ventricular response Code(s): I48.0 - PAROXYSMAL ATRIAL FIBRILLATION (12) Syncope, near Code(s): R55 - SYNCOPE AND COLLAPSE Assessment/Plan 02/02/2019 Chest CTA: No PE, increased bilateral pleural effusions R>L c/w pulm vascular congestion 02/01/2019 Lexiscan Myoview: No ischemia, LVEF 48% 02/02/2019 Echo: Mild cLVH normal LV and RV size and fxn, mild LAE, mild , tr TR RVSP 23 mmHg, pleural effusion 12/08/2018 Echo: cLVH with normal LVEF 65-70%, mild LAE 4.6 cm, mild CHILO, normal RV size and fxn, mild MR, mild-mod TR RVSP 31 mmHg 1. Recurrent orthostatic near syncope 2. Chronic anemia with history of diverticulosis and gastritis 3. Acute on chronic diastolic heart failure and bilateral pleural effusions (R>L ) post R thoracentesis: reactive lymphocytes / negative for malignant cells 4. Persistent AF with improved rate-control 5. CAD s/p CABG, PCI, angina 6. Type 2 DM 7. Hyperlipidemia 8. Acute on CKD 9. HTN 10. RESTREPO with cirrhosis, cholelithiasis 11. 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 Abnormal TSH, ? sick euthyroid vs Amiodarone effects 14. Urinary retention PLAN: 1. Continue home dose Lasix 40 po qd with monitor diuretic response, renal fxn and electrolytes 2. Continue renal-dosed Xarelto 15 mg QD 3. Continue Toprol XL 100 mg BID, resume midodrine 5 bid 4. Continue Ranexa 500 mg BID, Amiodarone 200 mg QD, Lipitor 80 mg QD and eventually Vascepa 2 mg BID 5. Bronchodilator and O2 as needed 6. Flomax 0.4 qhs with voiding trial at SNF 7. PT->SNF, anticipate d/c tomorrow
[2019-03-17] MEDS ORDERED: PT OWN MED DRAWER 7, Y5N ONE ×3 (11:32→19:45)
[2019-03-17] MEDS: MIDODRINE HCL 5 MG TABLET PO SCH ×2 (11:51→17:32)
[2019-03-17] MEDS: VITAMIN E 400 INTERNATIONAL-UNITS CAPSULE (FP) PO SCH (11:52)
--- NOTE | 2019-03-17 16:04 | PN ---
Progress Note (short form) - Note Progress Note: PULMONARY States breathing is better today. Vital Signs Period Temp Pulse Resp BP Sys/Cortes Pulse Ox Last 24 Hr 97.6 F-98.0 F 82-106 18-20 60-135/42-79 98 Gen: NAD at rest Heart: RRR Lung: decreased breath sounds at the bases Abd: soft, nontender Ext: no edema CBC, BMP 03/17/19 06:45 03/17/19 06:45 Active Medications Acetaminophen (Tylenol -) 650 mg PO Q4H PRN PRN Reason: FEVER Amiodarone HCl (Cordarone -) 200 mg PO DAILY [facility] Last Admin: 03/17/19 10:26 Dose: 200 mg Atorvastatin Calcium (Lipitor -) 80 mg PO HS [facility] Last Admin: 03/16/19 21:12 Dose: 80 mg Cyanocobalamin (Vitamin B12 -) 1,000 mcg PO DAILY [facility] Last Admin: 03/17/19 10:26 Dose: 1,000 mcg Diltiazem HCl (Cardizem Injection -) 10 mg IVPUSH Q4H PRN PRN Reason: TACHYCARDIA Last Admin: 03/07/19 15:49 Dose: 10 mg Docusate Sodium (Colace -) 100 mg PO BID [facility] Last Admin: 03/17/19 10:26 Dose: Not Given Folic Acid (Folic Acid -) 1 mg PO DAILY [facility] Last Admin: 03/17/19 10:26 Dose: 1 mg Furosemide (Lasix -) 40 mg PO DAILY [facility] Last Admin: 03/17/19 10:26 Dose: 40 mg Insulin Aspart (Novolog Vial Sliding Scale -) 1 vial SQ [facility]; Protocol Last Admin: 03/17/19 11:55 Dose: Not Given Metoprolol Succinate (Toprol Xl -) 100 mg PO BID [facility] Last Admin: 03/17/19 10:26 Dose: 100 mg Midodrine (Proamatine -) 5 mg PO BID-MID [facility] Last Admin: 03/17/19 11:51 Dose: 5 mg Mometasone Furoate (Asmanex 220mcg -) 1 puff IH BID [facility] Last Admin: 03/17/19 10:26 Dose: 1 puff Polyethylene Glycol (Miralax (For Daily Use) -) 17 gm PO BID [facility] Last Admin: 03/17/19 10:26 Dose: Not Given Ranolazine (Ranexa -) 500 mg PO BID [facility] Last Admin: 03/17/19 10:26 Dose: 500 mg Rivaroxaban (Xarelto) 15 mg PO DAILY@1800 [facility] Last Admin: 03/16/19 17:53 Dose: 15 mg Tamsulosin HCl (Flomax -) 0.4 mg PO [facility] Vitamin E (Vitamin E -) 400 unit PO DAILY [facility] Last Admin: 03/17/19 11:52 Dose: 400 unit A/P Acute on Chronic Diastolic Heart Failure Paroxysmal Atrial Fibrillation Pleural Effusions s/p R thoracentesis CAD s/p CABG COPD Acute on Chronic Renal Failure HTN DM Hyperlipidemia RESTREPO/Liver Cirrhosis - continue lasix - monitor urine output, creatinine - inhaled bronchodilators - O2 to keep Spo2 >90% - rate control - continue anticoagulation - rehab/PT
[2019-03-17] MEDS: RIVAROXABAN 15 MG TABLET PO SCH (17:32)
[2019-03-17] MEDS: ATORVASTATIN CA 80 MG TABLET (FP) PO SCH (21:45)
[2019-03-17] MEDS: TAMSULOSIN HCL 0.4 MG CAP PO SCH (21:45)
[2019-03-18] MEDS: INSULIN SLIDING SCALE (NOVOLOG) 1 VIAL SQ SCH ×4 (06:30→22:26)
[2019-03-18] MEDS ORDERED: PT OWN MED DRAWER 7, Y5N ONE ×4 (09:12→20:41)
[2019-03-18] MEDS: DOCUSATE SODIUM 100 MG CAPSULE (FP) PO SCH ×2 (09:21→22:24)
[2019-03-18] MEDS: POLYETHYLENE GLYCOL 3350 119 GM BTL PO SCH ×2 (09:22→22:25)
[2019-03-18] MEDS: FOLIC ACID 1 MG TABLET (FP) PO SCH (09:23)
[2019-03-18] MEDS: AMIODARONE HCL 200 MG TABLET (FP) PO SCH (09:23)
[2019-03-18] MEDS: FUROSEMIDE 40 MG TABLET (FP) PO SCH (09:23)
[2019-03-18] MEDS: MIDODRINE HCL 5 MG TABLET PO SCH ×3 (09:23→17:25)
[2019-03-18] MEDS: VITAMIN E 400 INTERNATIONAL-UNITS CAPSULE (FP) PO SCH (09:23)
[2019-03-18] MEDS: RANOLAZINE E.R. 500 MG TABLET (FP) PO SCH ×2 (09:23→22:25)
[2019-03-18] MEDS: CYANOCOBALAMIN 1,000 MCG TABLET (FP) PO SCH (09:23)
[2019-03-18] MEDS: MOMETASONE FUROATE 220 MCG/IH INHALER IH SCH ×2 (09:24→22:25)
--- NOTE | 2019-03-18 10:10 | PN ---
Progress Note, Physician History of Present Illness: Resting comfortably w/o dyspnea or orthopnea on O2 NC, afib remains rate- controlled after medication adjustments. Recurrent episode of orthostatic hypotension with dizziness this morning now on midodrine. Started on Flomax for urinary retention and then f/u voiding trial. - Current Medication List Current Medications: Active Medications Acetaminophen (Tylenol -) 650 mg PO Q4H PRN PRN Reason: FEVER Amiodarone HCl (Cordarone -) 200 mg PO DAILY [facility] Last Admin: 03/18/19 09:23 Dose: 200 mg Atorvastatin Calcium (Lipitor -) 80 mg PO HS [facility] Last Admin: 03/17/19 21:45 Dose: 80 mg Cyanocobalamin (Vitamin B12 -) 1,000 mcg PO DAILY [facility] Last Admin: 03/18/19 09:23 Dose: 1,000 mcg Diltiazem HCl (Cardizem Injection -) 10 mg IVPUSH Q4H PRN PRN Reason: TACHYCARDIA Last Admin: 03/07/19 15:49 Dose: 10 mg Docusate Sodium (Colace -) 100 mg PO BID [facility] Last Admin: 03/18/19 09:21 Dose: Not Given Folic Acid (Folic Acid -) 1 mg PO DAILY [facility] Last Admin: 03/18/19 09:23 Dose: 1 mg Furosemide (Lasix -) 40 mg PO DAILY [facility] Last Admin: 03/18/19 09:23 Dose: 40 mg Insulin Aspart (Novolog Vial Sliding Scale -) 1 vial SQ ACHS [facility]; Protocol Last Admin: 03/18/19 06:30 Dose: 2 units Metoprolol Succinate (Toprol Xl -) 100 mg PO BID [facility] Last Admin: 03/18/19 09:24 Dose: 100 mg Midodrine (Proamatine -) 5 mg PO BID-MID [facility] Last Admin: 03/18/19 09:23 Dose: 5 mg Mometasone Furoate (Asmanex 220mcg -) 1 puff IH BID [facility] Last Admin: 03/18/19 09:24 Dose: 1 puff Polyethylene Glycol (Miralax (For Daily Use) -) 17 gm PO BID [facility] Last Admin: 03/18/19 09:22 Dose: Not Given Ranolazine (Ranexa -) 500 mg PO BID [facility] Last Admin: 03/18/19 09:23 Dose: 500 mg Rivaroxaban (Xarelto) 15 mg PO DAILY@1800 [facility] Last Admin: 03/17/19 17:32 Dose: 15 mg Tamsulosin HCl (Flomax -) 0.4 mg PO [facility] Last Admin: 03/17/19 21:45 Dose: 0.4 mg Vitamin E (Vitamin E -) 400 unit PO DAILY [facility] Last Admin: 03/18/19 09:23 Dose: 400 unit - Objective Vital Signs: Vital Signs Temperature 97.8 F 03/18/19 09:19 Pulse Rate 83 03/18/19 09:19 Respiratory Rate 18 03/18/19 09:19 Blood Pressure 101/58 L 03/18/19 09:19 O2 Sat by Pulse Oximetry (%) 95 03/17/19 21:00 Constitutional: Yes: No Distress, Calm Neck: Yes: Supple Cardiovascular: Yes: Pulse Irregular Respiratory: Yes: Regular, Diminished, On Nasal O2 Gastrointestinal: Yes: Normal Bowel Sounds, Soft Edema: No Labs: CBC, BMP 03/17/19 06:45 03/17/19 06:45 INR, PTT INR 1.18 (0.83-1.09) H 03/06/19 05:20 - ....Imaging EKG: Report Reviewed (Tele: Rate-controlled afib) Problem List - Problems (1) Abnormal TSH Code(s): R79.89 - OTHER SPECIFIED ABNORMAL FINDINGS OF BLOOD CHEMISTRY (2) Anemia Code(s): D64.9 - ANEMIA, UNSPECIFIED Qualifiers: Anemia type: unspecified type Qualified Code(s): D64.9 - Anemia, unspecified (3) Hypotension Code(s): I95.9 - HYPOTENSION, UNSPECIFIED Qualifiers: Hypotension type: hypotension due to hypovolemia Qualified Code(s): I95.89 - Other hypotension; E86.1 - Hypovolemia (4) Mesenteric mass Code(s): K63.89 - OTHER SPECIFIED DISEASES OF INTESTINE (5) Portal hypertensive gastropathy Code(s): K76.6 - PORTAL HYPERTENSION; K31.89 - OTHER DISEASES OF STOMACH AND DUODENUM (6) [id number] kidney injury Code(s): N17.9 - ACUTE KIDNEY FAILURE, UNSPECIFIED; N18.9 - CHRONIC KIDNEY DISEASE, UNSPECIFIED Qualifiers: Chronic kidney disease stage: stage 2 (mild) (7) CHF (congestive heart failure) Code(s): I50.9 - HEART FAILURE, UNSPECIFIED Qualifiers: Heart failure type: diastolic Heart failure chronicity: chronic Qualified Code(s): I50.32 - Chronic diastolic (congestive) heart failure (8) Hx of CABG Code(s): Z95.1 - PRESENCE OF AORTOCORONARY BYPASS GRAFT (9) Hyperlipidemia Code(s): E78.5 - HYPERLIPIDEMIA, UNSPECIFIED Qualifiers: Hyperlipidemia type: pure hypercholesterolemia Qualified Code(s): E78.00 - Pure hypercholesterolemia, unspecified; E78.0 - Pure hypercholesterolemia (10) Hypertension Code(s): I10 - ESSENTIAL (PRIMARY) HYPERTENSION Qualifiers: Hypertension type: essential hypertension Qualified Code(s): I10 - Essential (primary) hypertension (11) Paroxysmal atrial fibrillation with rapid ventricular response Code(s): I48.0 - PAROXYSMAL ATRIAL FIBRILLATION (12) Syncope, near Code(s): R55 - SYNCOPE AND COLLAPSE Assessment/Plan 02/02/2019 Chest CTA: No PE, increased bilateral pleural effusions R>L c/w pulm vascular congestion 02/01/2019 Lexiscan Myoview: No ischemia, LVEF 48% 02/02/2019 Echo: Mild cLVH normal LV and RV size and fxn, mild LAE, mild , tr TR RVSP 23 mmHg, pleural effusion 12/08/2018 Echo: cLVH with normal LVEF 65-70%, mild LAE 4.6 cm, mild CHILO, normal RV size and fxn, mild MR, mild-mod TR RVSP 31 mmHg 1. Recurrent orthostatic near syncope 2. Chronic anemia with history of diverticulosis and gastritis 3. Acute on chronic diastolic heart failure and bilateral pleural effusions (R>L ) post R thoracentesis: reactive lymphocytes / negative for malignant cells 4. Persistent AF with improved rate-control 5. CAD s/p CABG, PCI, angina 6. Type 2 DM 7. Hyperlipidemia 8. Acute on CKD 9. HTN 10. RESTREPO with cirrhosis, cholelithiasis 11. 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 Abnormal TSH, ? sick euthyroid vs Amiodarone effects 14. Urinary retention PLAN: 1. Continue home dose Lasix 40 po qd with monitor diuretic response, renal fxn and electrolytes 2. Continue renal-dosed Xarelto 15 mg QD 3. Continue Toprol XL 100 mg BID, increase midodrine 5 tid 4. Continue Ranexa 500 mg BID, Amiodarone 200 mg QD, Lipitor 80 mg QD and eventually Vascepa 2 mg BID 5. Bronchodilator and O2 as needed 6. Flomax 0.4 qhs with voiding trial at SNF 7. PT->SNF, d/c planning
--- NOTE | 2019-03-18 11:12 | PN ---
Progress Note (short form) - Note Progress Note: PULMONARY Still some orthostatic symptoms. Denies shortness of breath or chest pain. Vital Signs Period Temp Pulse Resp BP Sys/Cortes Pulse Ox Last 24 Hr 97.6 F-98.2 F 83-105 18-20 83-117/46-68 95 Gen: NAD at rest Heart: RRR Lung: decreased breath sounds at the bases Abd: soft, nontender Ext: no edema CBC, BMP 03/17/19 06:45 03/17/19 06:45 Active Medications Acetaminophen (Tylenol -) 650 mg PO Q4H PRN PRN Reason: FEVER Amiodarone HCl (Cordarone -) 200 mg PO DAILY [facility] Last Admin: 03/18/19 09:23 Dose: 200 mg Atorvastatin Calcium (Lipitor -) 80 mg PO HS [facility] Last Admin: 03/17/19 21:45 Dose: 80 mg Cyanocobalamin (Vitamin B12 -) 1,000 mcg PO DAILY [facility] Last Admin: 03/18/19 09:23 Dose: 1,000 mcg Diltiazem HCl (Cardizem Injection -) 10 mg IVPUSH Q4H PRN PRN Reason: TACHYCARDIA Last Admin: 03/07/19 15:49 Dose: 10 mg Docusate Sodium (Colace -) 100 mg PO BID [facility] Last Admin: 03/18/19 09:21 Dose: Not Given Folic Acid (Folic Acid -) 1 mg PO DAILY [facility] Last Admin: 03/18/19 09:23 Dose: 1 mg Furosemide (Lasix -) 40 mg PO DAILY [facility] Last Admin: 03/18/19 09:23 Dose: 40 mg Insulin Aspart (Novolog Vial Sliding Scale -) [address] [facility]; Protocol Last Admin: 03/18/19 06:30 Dose: 2 units Metoprolol Succinate (Toprol Xl -) 100 mg PO BID [facility] Last Admin: 03/18/19 09:24 Dose: 100 mg Midodrine (Proamatine -) 5 mg PO TID-MID [facility] Mometasone Furoate (Asmanex 220mcg -) 1 puff IH BID [facility] Last Admin: 03/18/19 09:24 Dose: 1 puff Polyethylene Glycol (Miralax (For Daily Use) -) 17 gm PO BID [facility] Last Admin: 03/18/19 09:22 Dose: Not Given Ranolazine (Ranexa -) 500 mg PO BID [facility] Last Admin: 03/18/19 09:23 Dose: 500 mg Rivaroxaban (Xarelto) 15 mg PO DAILY@1800 [facility] Last Admin: 03/17/19 17:32 Dose: 15 mg Tamsulosin HCl (Flomax -) 0.4 mg PO HS [facility] Last Admin: 03/17/19 21:45 Dose: 0.4 mg Vitamin E (Vitamin E -) 400 unit PO DAILY [facility] Last Admin: 03/18/19 09:23 Dose: 400 unit A/P Acute on Chronic Diastolic Heart Failure Paroxysmal Atrial Fibrillation Pleural Effusions s/p R thoracentesis CAD s/p CABG COPD Acute on Chronic Renal Failure HTN DM Hyperlipidemia RESTREPO/Liver Cirrhosis - continue lasix - monitor urine output, creatinine - inhaled bronchodilators - O2 to keep Spo2 >90% - rate control - continue anticoagulation - titrate midodrine - rehab/PT
--- NOTE | 2019-03-18 11:26 | PN ---
Progress Note, Physician Chief Complaint: Ms Alexis again experienced dizziness and orthostatic hypotension this morning. No cp, sob, n/v. - Current Medication List Current Medications: Active Medications Acetaminophen (Tylenol -) 650 mg PO Q4H PRN PRN Reason: FEVER Amiodarone HCl (Cordarone -) 200 mg PO DAILY [facility] Last Admin: 03/18/19 09:23 Dose: 200 mg Atorvastatin Calcium (Lipitor -) 80 mg PO HS [facility] Last Admin: 03/17/19 21:45 Dose: 80 mg Cyanocobalamin (Vitamin B12 -) 1,000 mcg PO DAILY [facility] Last Admin: 03/18/19 09:23 Dose: 1,000 mcg Diltiazem HCl (Cardizem Injection -) 10 mg IVPUSH Q4H PRN PRN Reason: TACHYCARDIA Last Admin: 03/07/19 15:49 Dose: 10 mg Docusate Sodium (Colace -) 100 mg PO BID [facility] Last Admin: 03/18/19 09:21 Dose: Not Given Folic Acid (Folic Acid -) 1 mg PO DAILY [facility] Last Admin: 03/18/19 09:23 Dose: 1 mg Furosemide (Lasix -) 40 mg PO DAILY [facility] Last Admin: 03/18/19 09:23 Dose: 40 mg Insulin Aspart (Novolog Vial Sliding Scale -) 1 vial SQ [facility]; Protocol Last Admin: 03/18/19 06:30 Dose: 2 units Metoprolol Succinate (Toprol Xl -) 100 mg PO BID [facility] Last Admin: 03/18/19 09:24 Dose: 100 mg Midodrine (Proamatine -) 5 mg PO TID-MID [facility] Mometasone Furoate (Asmanex 220mcg -) 1 puff IH BID [facility] Last Admin: 03/18/19 09:24 Dose: 1 puff Polyethylene Glycol (Miralax (For Daily Use) -) 17 gm PO BID [facility] Last Admin: 03/18/19 09:22 Dose: Not Given Ranolazine (Ranexa -) 500 mg PO BID [facility] Last Admin: 03/18/19 09:23 Dose: 500 mg Rivaroxaban (Xarelto) 15 mg PO DAILY@1800 [facility] Last Admin: 03/17/19 17:32 Dose: 15 mg Tamsulosin HCl (Flomax -) 0.4 mg PO [facility] Last Admin: 03/17/19 21:45 Dose: 0.4 mg Vitamin E (Vitamin E -) 400 unit PO DAILY [facility] Last Admin: 03/18/19 09:23 Dose: 400 unit - Objective Vital Signs: Vital Signs Temperature 36.6 C 03/18/19 09:19 Pulse Rate 83 03/18/19 09:19 Respiratory Rate 18 03/18/19 09:19 Blood Pressure 101/58 L 03/18/19 09:19 O2 Sat by Pulse Oximetry (%) 95 03/17/19 21:00 Constitutional: Yes: Well Nourished, No Distress, Calm Cardiovascular: Yes: Regular Rate and Rhythm. No: Gallop, Murmur, Rub Respiratory: Yes: Regular, CTA Bilaterally. No: Rales, Rhonchi, Wheezes Gastrointestinal: Yes: Normal Bowel Sounds, Soft. No: Distention, Tenderness Extremities: Yes: WNL Edema: No Labs: CBC, BMP 03/17/19 06:45 03/17/19 06:45 INR, PTT INR 1.18 (0.83-1.09) H 03/06/19 05:20 Problem List - Problems (1) Anemia Code(s): D64.9 - ANEMIA, UNSPECIFIED Qualifiers: Anemia type: unspecified type Qualified Code(s): D64.9 - Anemia, unspecified (2) Syncope, near Code(s): R55 - SYNCOPE AND COLLAPSE (3) Hypotension Code(s): I95.9 - HYPOTENSION, UNSPECIFIED Qualifiers: Hypotension type: hypotension due to hypovolemia Qualified Code(s): I95.89 - Other hypotension; E86.1 - Hypovolemia (4) CKD (chronic kidney disease) Code(s): N18.9 - CHRONIC KIDNEY DISEASE, UNSPECIFIED (5) Chronic atrial fibrillation Code(s): I48.2 - CHRONIC ATRIAL FIBRILLATION (6) Abnormal TSH Code(s): R79.89 - OTHER SPECIFIED ABNORMAL FINDINGS OF BLOOD CHEMISTRY (7) CHF (congestive heart failure) Code(s): I50.9 - HEART FAILURE, UNSPECIFIED Qualifiers: Heart failure type: diastolic Heart failure chronicity: chronic Qualified Code(s): I50.32 - Chronic diastolic (congestive) heart failure (8) Diabetes Code(s): E11.9 - TYPE 2 DIABETES MELLITUS WITHOUT COMPLICATIONS Qualifiers: Diabetes mellitus type: type 2 Diabetes mellitus protein purification scientist insulin use: without protein purification scientist use (9) Hx of CABG Code(s): Z95.1 - PRESENCE OF AORTOCORONARY BYPASS GRAFT (10) Hyperlipidemia Code(s): E78.5 - HYPERLIPIDEMIA, UNSPECIFIED Qualifiers: Hyperlipidemia type: pure hypercholesterolemia Qualified Code(s): E78.00 - Pure hypercholesterolemia, unspecified; E78.0 - Pure hypercholesterolemia (11) Coumadin toxicity Code(s): T45.511A - POISONING BY ANTICOAGULANTS, ACCIDENTAL, INIT Qualifiers: Encounter type: initial encounter Injury intent: accidental or unintentional Qualified Code(s): T45.511A - Poisoning by anticoagulants, accidental (unintentional), initial encounter (12) Pleural effusion Code(s): J90 - PLEURAL EFFUSION, NOT ELSEWHERE CLASSIFIED Assessment/Plan (1) Anemia Assessment/Plan: -stable -continue xarelto Code(s): D64.9 - ANEMIA, UNSPECIFIED Qualifiers: Anemia type: unspecified type Qualified Code(s): D64.9 - Anemia, unspecified (2) Orthostatic hypotension Assessment/Plan: -recurred this am -case d/w Dr Villasenor -increase midodrine to tid -recheck in am Code(s): R55 - SYNCOPE AND COLLAPSE (3) Hypotension Assessment/Plan: -monitor Code(s): I95.9 - HYPOTENSION, UNSPECIFIED Qualifiers: Hypotension type: hypotension due to hypovolemia Qualified Code(s): I95.89 - Other hypotension; E86.1 - Hypovolemia (4) CKD (chronic kidney disease) Assessment/Plan: -stable Code(s): N18.9 - CHRONIC KIDNEY DISEASE, UNSPECIFIED (5) Chronic atrial fibrillation Assessment/Plan: -cardiology following -continue amiodarone and toprol xl -toprol xl increased to 100mg bid this admission -amiodarone decreased to 200mg daily -continue xarelto Code(s): I48.2 - CHRONIC ATRIAL FIBRILLATION (6) Abnormal TSH Assessment/Plan: -suspect secondary to amiodarone -FT4 normal Code(s): R79.89 - OTHER SPECIFIED ABNORMAL FINDINGS OF BLOOD CHEMISTRY (7) CHF (congestive heart failure) Assessment/Plan: -euvolemic -continue oral lasix Code(s): I50.9 - HEART FAILURE, UNSPECIFIED Qualifiers: Heart failure type: diastolic Heart failure chronicity: chronic Qualified Code(s): I50.32 - Chronic diastolic (congestive) heart failure (8) Diabetes Assessment/Plan: -diabetic diet -FSBS and SSI Code(s): E11.9 - TYPE 2 DIABETES MELLITUS WITHOUT COMPLICATIONS Qualifiers: Diabetes mellitus type: type 2 Diabetes mellitus protein purification scientist insulin use: without prison use (9) Hx of CABG Assessment/Plan: -noted Code(s): Z95.1 - PRESENCE OF AORTOCORONARY BYPASS GRAFT (10) Hyperlipidemia Assessment/Plan: -continue home regimen Code(s): E78.5 - HYPERLIPIDEMIA, UNSPECIFIED Qualifiers: Hyperlipidemia type: mixed hyperlipidemia Qualified Code(s): E78.2 - Mixed hyperlipidemia (11) Coumadin toxicity Assessment/Plan: -resolved -continue to monitor Code(s): T45.511A - POISONING BY ANTICOAGULANTS, ACCIDENTAL, INIT Qualifiers: Encounter type: initial encounter Injury intent: accidental or unintentional Qualified Code(s): T45.511A - Poisoning by anticoagulants, accidental (unintentional), initial encounter (12) R pleural effusion -fluid results negative for malignant cells -most likely secondary to CHF -resolved (13) Urine retention -continue flomax -voiding trial today
[2019-03-18] MEDS: RIVAROXABAN 15 MG TABLET PO SCH (17:26)
[2019-03-18] MEDS: ATORVASTATIN CA 80 MG TABLET (FP) PO SCH (22:25)
[2019-03-18] MEDS: TAMSULOSIN HCL 0.4 MG CAP PO SCH (22:25)
[2019-03-19] MEDS: ACETAMINOPHEN 325 MG TABLET (FP) PO PRN (02:48)
[2019-03-19] MEDS: INSULIN SLIDING SCALE (NOVOLOG) 1 VIAL SQ SCH ×4 (06:34→21:34)
[2019-03-19] MEDS ORDERED: PT OWN MED DRAWER 7, Y5N ONE ×3 (08:43→16:58)
[2019-03-19] MEDS: CYANOCOBALAMIN 1,000 MCG TABLET (FP) PO SCH (10:21)
[2019-03-19] MEDS: RANOLAZINE E.R. 500 MG TABLET (FP) PO SCH ×2 (10:21→21:33)
[2019-03-19] MEDS: AMIODARONE HCL 200 MG TABLET (FP) PO SCH (10:21)
[2019-03-19] MEDS: DOCUSATE SODIUM 100 MG CAPSULE (FP) PO SCH ×2 (10:21→21:34)
[2019-03-19] MEDS: MIDODRINE HCL 5 MG TABLET PO SCH ×3 (10:22→17:12)
[2019-03-19] MEDS: FUROSEMIDE 40 MG TABLET (FP) PO SCH (10:22)
--- NOTE | 2019-03-19 10:22 | PN ---
Progress Note (short form) - Note Progress Note: PULMONARY Denies shortness of breath or chest pain. Vital Signs Period Temp Pulse Resp BP Sys/Cortes Pulse Ox Last 24 Hr 97.6 F-98.8 F 94-112 18-18 100-117/51-87 97 Gen: NAD at rest Heart: RRR Lung: decreased breath sounds at the bases Abd: soft, nontender Ext: no edema CBC, BMP 03/17/19 06:45 03/17/19 06:45 Active Medications Acetaminophen (Tylenol -) 650 mg PO Q4H PRN PRN Reason: FEVER Last Admin: 03/19/19 02:48 Dose: 650 mg Amiodarone HCl (Cordarone -) 200 mg PO DAILY [facility] Last Admin: 03/18/19 09:23 Dose: 200 mg Atorvastatin Calcium (Lipitor -) 80 mg PO HS [facility] Last Admin: 03/18/19 22:25 Dose: 80 mg Cyanocobalamin (Vitamin B12 -) 1,000 mcg PO DAILY [facility] Last Admin: 03/18/19 09:23 Dose: 1,000 mcg Diltiazem HCl (Cardizem Injection -) 10 mg IVPUSH Q4H PRN PRN Reason: TACHYCARDIA Last Admin: 03/07/19 15:49 Dose: 10 mg Docusate Sodium (Colace -) 100 mg PO BID [facility] Last Admin: 03/18/19 22:24 Dose: Not Given Folic Acid (Folic Acid -) 1 mg PO DAILY [facility] Last Admin: 03/18/19 09:23 Dose: 1 mg Furosemide (Lasix -) 40 mg PO DAILY [facility] Last Admin: 03/18/19 09:23 Dose: 40 mg Insulin Aspart (Novolog Vial Sliding Scale -) 1 vial SQ ACHS [facility]; Protocol Last Admin: 03/19/19 06:34 Dose: 2 units Metoprolol Succinate (Toprol Xl -) 100 mg PO BID [facility] Last Admin: 03/18/19 22:24 Dose: 100 mg Midodrine (Proamatine -) 5 mg PO TID-MID [facility] Last Admin: 03/18/19 17:25 Dose: 5 mg Mometasone Furoate (Asmanex 220mcg -) 1 puff IH BID [facility] Last Admin: 03/18/19 22:25 Dose: 1 puff Polyethylene Glycol (Miralax (For Daily Use) -) 17 gm PO BID [facility] Last Admin: 03/18/19 22:25 Dose: Not Given Ranolazine (Ranexa -) 500 mg PO BID [facility] Last Admin: 03/18/19 22:25 Dose: 500 mg Rivaroxaban (Xarelto) 15 mg PO DAILY@1800 [facility] Last Admin: 03/18/19 17:26 Dose: 15 mg Tamsulosin HCl (Flomax -) 0.4 mg PO HS [facility] Last Admin: 03/18/19 22:25 Dose: 0.4 mg Vitamin E (Vitamin E -) 400 unit PO DAILY [facility] Last Admin: 03/18/19 09:23 Dose: 400 unit A/P Acute on Chronic Diastolic Heart Failure Paroxysmal Atrial Fibrillation Pleural Effusions s/p R thoracentesis CAD s/p CABG COPD Acute on Chronic Renal Failure HTN DM Hyperlipidemia RESTREPO/Liver Cirrhosis - continue lasix - monitor urine output, creatinine - inhaled bronchodilators - O2 to keep Spo2 >90% - rate control - continue anticoagulation - titrate midodrine - rehab/PT
[2019-03-19] MEDS: FOLIC ACID 1 MG TABLET (FP) PO SCH (10:23)
[2019-03-19] MEDS: POLYETHYLENE GLYCOL 3350 119 GM BTL PO SCH ×2 (10:23→21:34)
[2019-03-19] MEDS: VITAMIN E 400 INTERNATIONAL-UNITS CAPSULE (FP) PO SCH (10:23)
[2019-03-19] MEDS: MOMETASONE FUROATE 220 MCG/IH INHALER IH SCH ×2 (10:23→21:34)
--- NOTE | 2019-03-19 14:10 | PN ---
Progress Note, Physician History of Present Illness: Resting comfortably w/o dyspnea or orthopnea on O2 NC, afib remains rate- controlled after medication adjustments. Resolving orthostasis without dizziness after uptitration of midodrine. Started on Flomax for urinary retention and then f/u voiding trial. - Current Medication List Current Medications: Active Medications Acetaminophen (Tylenol -) 650 mg PO Q4H PRN PRN Reason: FEVER Last Admin: 03/19/19 02:48 Dose: 650 mg Amiodarone HCl (Cordarone -) 200 mg PO DAILY [facility] Last Admin: 03/19/19 10:21 Dose: 200 mg Atorvastatin Calcium (Lipitor -) 80 mg PO HS [facility] Last Admin: 03/18/19 22:25 Dose: 80 mg Cyanocobalamin (Vitamin B12 -) 1,000 mcg PO DAILY [facility] Last Admin: 03/19/19 10:21 Dose: 1,000 mcg Diltiazem HCl (Cardizem Injection -) 10 mg IVPUSH Q4H PRN PRN Reason: TACHYCARDIA Last Admin: 03/07/19 15:49 Dose: 10 mg Docusate Sodium (Colace -) 100 mg PO BID [facility] Last Admin: 03/19/19 10:21 Dose: Not Given Folic Acid (Folic Acid -) 1 mg PO DAILY [facility] Last Admin: 03/19/19 10:23 Dose: 1 mg Furosemide (Lasix -) 40 mg PO DAILY [facility] Last Admin: 03/19/19 10:22 Dose: 40 mg Insulin Aspart (Novolog Vial Sliding Scale -) [address] [facility]; Protocol Last Admin: 03/19/19 11:56 Dose: 2 units Metoprolol Succinate (Toprol Xl -) 100 mg PO BID [facility] Last Admin: 03/19/19 10:22 Dose: 100 mg Midodrine (Proamatine -) 5 mg PO TID-MID [facility] Last Admin: 03/19/19 14:03 Dose: 5 mg Mometasone Furoate (Asmanex 220mcg -) 1 puff IH BID [facility] Last Admin: 03/19/19 10:23 Dose: 1 puff Polyethylene Glycol (Miralax (For Daily Use) -) 17 gm PO BID [facility] Last Admin: 03/19/19 10:23 Dose: Not Given Ranolazine (Ranexa -) 500 mg PO BID [facility] Last Admin: 03/19/19 10:21 Dose: 500 mg Rivaroxaban (Xarelto) 15 mg PO DAILY@1800 [facility] Last Admin: 03/18/19 17:26 Dose: 15 mg Tamsulosin HCl (Flomax -) 0.4 mg PO HS [facility] Last Admin: 03/18/19 22:25 Dose: 0.4 mg Vitamin E (Vitamin E -) 400 unit PO DAILY [facility] Last Admin: 03/19/19 10:23 Dose: 400 unit - Objective Vital Signs: Vital Signs Temperature 97.9 F 03/19/19 10:00 Pulse Rate 88 03/19/19 10:00 Respiratory Rate 18 03/19/19 10:00 Blood Pressure 103/52 L 03/19/19 10:00 O2 Sat by Pulse Oximetry (%) 97 03/19/19 10:00 Constitutional: Yes: No Distress, Calm Neck: Yes: Supple Cardiovascular: Yes: Pulse Irregular Respiratory: Yes: Regular, Diminished Gastrointestinal: Yes: Normal Bowel Sounds, Soft Edema: No Labs: CBC, BMP 03/17/19 06:45 03/17/19 06:45 INR, PTT INR 1.18 (0.83-1.09) H 03/06/19 05:20 - ....Imaging EKG: Report Reviewed (Tele: Rate-controlled afib) Problem List - Problems (1) Abnormal TSH Code(s): R79.89 - OTHER SPECIFIED ABNORMAL FINDINGS OF BLOOD CHEMISTRY (2) Anemia Code(s): D64.9 - ANEMIA, UNSPECIFIED Qualifiers: Anemia type: unspecified type Qualified Code(s): D64.9 - Anemia, unspecified (3) Hypotension Code(s): I95.9 - HYPOTENSION, UNSPECIFIED Qualifiers: Hypotension type: hypotension due to hypovolemia Qualified Code(s): I95.89 - Other hypotension; E86.1 - Hypovolemia (4) Mesenteric mass Code(s): K63.89 - OTHER SPECIFIED DISEASES OF INTESTINE (5) Portal hypertensive gastropathy Code(s): K76.6 - PORTAL HYPERTENSION; K31.89 - OTHER DISEASES OF STOMACH AND DUODENUM (6) [id number] kidney injury Code(s): N17.9 - ACUTE KIDNEY FAILURE, UNSPECIFIED; N18.9 - CHRONIC KIDNEY DISEASE, UNSPECIFIED Qualifiers: Chronic kidney disease stage: stage 2 (mild) (7) CHF (congestive heart failure) Code(s): I50.9 - HEART FAILURE, UNSPECIFIED Qualifiers: Heart failure type: diastolic Heart failure chronicity: chronic Qualified Code(s): I50.32 - Chronic diastolic (congestive) heart failure (8) Hx of CABG Code(s): Z95.1 - PRESENCE OF AORTOCORONARY BYPASS GRAFT (9) Hyperlipidemia Code(s): E78.5 - HYPERLIPIDEMIA, UNSPECIFIED Qualifiers: Hyperlipidemia type: pure hypercholesterolemia Qualified Code(s): E78.00 - Pure hypercholesterolemia, unspecified; E78.0 - Pure hypercholesterolemia (10) Hypertension Code(s): I10 - ESSENTIAL (PRIMARY) HYPERTENSION Qualifiers: Hypertension type: essential hypertension Qualified Code(s): I10 - Essential (primary) hypertension (11) Paroxysmal atrial fibrillation with rapid ventricular response Code(s): I48.0 - PAROXYSMAL ATRIAL FIBRILLATION (12) Syncope, near Code(s): R55 - SYNCOPE AND COLLAPSE Assessment/Plan 02/02/2019 Chest CTA: No PE, increased bilateral pleural effusions R>L c/w pulm vascular congestion 02/01/2019 Lexiscan Myoview: No ischemia, LVEF 48% 02/02/2019 Echo: Mild cLVH normal LV and RV size and fxn, mild LAE, mild , tr TR RVSP 23 mmHg, pleural effusion 12/08/2018 Echo: cLVH with normal LVEF 65-70%, mild LAE 4.6 cm, mild CHILO, normal RV size and fxn, mild MR, mild-mod TR RVSP 31 mmHg 1. Recurrent orthostatic near syncope 2. Chronic anemia with history of diverticulosis and gastritis 3. Acute on chronic diastolic heart failure and bilateral pleural effusions (R>L ) post R thoracentesis: reactive lymphocytes / negative for malignant cells 4. Persistent AF with improved rate-control 5. CAD s/p CABG, PCI, angina 6. Type 2 DM 7. Hyperlipidemia 8. Acute on CKD 9. HTN 10. RESTREPO with cirrhosis, cholelithiasis 11. 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 Abnormal TSH, ? sick euthyroid vs Amiodarone effects 14. Urinary retention PLAN: 1. Continue home dose Lasix 40 po qd with monitor diuretic response, renal fxn and electrolytes 2. Continue renal-dosed Xarelto 15 mg QD 3. Continue Toprol XL 100 mg BID, increase midodrine 5 tid 4. Continue Ranexa 500 mg BID, Amiodarone 200 mg QD, Lipitor 80 mg QD and eventually Vascepa 2 mg BID 5. Bronchodilator and O2 as needed 6. Flomax 0.4 qhs with voiding trial at [facility] 7. PT->[facility], d/c planning
--- NOTE | 2019-03-19 14:16 | PN ---
Progress Note, Physician Chief Complaint: Ms Alexis had an episode of hypotension this morning so did not stand up. Denies cp, sob, n/v. - Current Medication List Current Medications: Active Medications Acetaminophen (Tylenol -) 650 mg PO Q4H PRN PRN Reason: FEVER Last Admin: 03/19/19 02:48 Dose: 650 mg Amiodarone HCl (Cordarone -) 200 mg PO DAILY [facility] Last Admin: 03/19/19 10:21 Dose: 200 mg Atorvastatin Calcium (Lipitor -) 80 mg PO HS [facility] Last Admin: 03/18/19 22:25 Dose: 80 mg Cyanocobalamin (Vitamin B12 -) 1,000 mcg PO DAILY [facility] Last Admin: 03/19/19 10:21 Dose: 1,000 mcg Diltiazem HCl (Cardizem Injection -) 10 mg IVPUSH Q4H PRN PRN Reason: TACHYCARDIA Last Admin: 03/07/19 15:49 Dose: 10 mg Docusate Sodium (Colace -) 100 mg PO BID [facility] Last Admin: 03/19/19 10:21 Dose: Not Given Folic Acid (Folic Acid -) 1 mg PO DAILY [facility] Last Admin: 03/19/19 10:23 Dose: 1 mg Furosemide (Lasix -) 40 mg PO DAILY [facility] Last Admin: 03/19/19 10:22 Dose: 40 mg Insulin Aspart (Novolog Vial Sliding Scale -) 1 vial SQ ACHS [facility]; Protocol Last Admin: 03/19/19 11:56 Dose: 2 units Metoprolol Succinate (Toprol Xl -) 100 mg PO BID [facility] Last Admin: 03/19/19 10:22 Dose: 100 mg Midodrine (Proamatine -) 5 mg PO TID-MID [facility] Last Admin: 03/19/19 14:03 Dose: 5 mg Mometasone Furoate (Asmanex 220mcg -) 1 puff IH BID [facility] Last Admin: 03/19/19 10:23 Dose: 1 puff Polyethylene Glycol (Miralax (For Daily Use) -) 17 gm PO BID [facility] Last Admin: 03/19/19 10:23 Dose: Not Given Ranolazine (Ranexa -) 500 mg PO BID [facility] Last Admin: 03/19/19 10:21 Dose: 500 mg Rivaroxaban (Xarelto) 15 mg PO DAILY@1800 [facility] Last Admin: 03/18/19 17:26 Dose: 15 mg Tamsulosin HCl (Flomax -) 0.4 mg PO HS [facility] Last Admin: 03/18/19 22:25 Dose: 0.4 mg Vitamin E (Vitamin E -) 400 unit PO DAILY [facility] Last Admin: 03/19/19 10:23 Dose: 400 unit - Objective Vital Signs: Vital Signs Temperature 36.6 C 03/19/19 10:00 Pulse Rate 88 03/19/19 10:00 Respiratory Rate 18 03/19/19 10:00 Blood Pressure 103/52 L 03/19/19 10:00 O2 Sat by Pulse Oximetry (%) 97 03/19/19 10:00 Constitutional: Yes: Well Nourished, No Distress, Calm Cardiovascular: Yes: Regular Rate and Rhythm. No: Gallop, Murmur, Rub Respiratory: Yes: Regular, CTA Bilaterally. No: Rales, Rhonchi, Wheezes Gastrointestinal: Yes: Normal Bowel Sounds, Soft. No: Distention, Tenderness Extremities: Yes: WNL Edema: No Labs: CBC, BMP 03/17/19 06:45 03/17/19 06:45 INR, PTT INR 1.18 (0.83-1.09) H 03/06/19 05:20 Problem List - Problems (1) Anemia Code(s): D64.9 - ANEMIA, UNSPECIFIED Qualifiers: Qualified Code(s): D64.9 - Anemia, unspecified (2) Syncope, near Code(s): R55 - SYNCOPE AND COLLAPSE (3) Hypotension Code(s): I95.9 - HYPOTENSION, UNSPECIFIED Qualifiers: Qualified Code(s): I95.89 - Other hypotension; E86.1 - Hypovolemia (4) CKD (chronic kidney disease) Code(s): N18.9 - CHRONIC KIDNEY DISEASE, UNSPECIFIED (5) Chronic atrial fibrillation Code(s): I48.2 - CHRONIC ATRIAL FIBRILLATION (6) Abnormal TSH Code(s): R79.89 - OTHER SPECIFIED ABNORMAL FINDINGS OF BLOOD CHEMISTRY (7) CHF (congestive heart failure) Code(s): I50.9 - HEART FAILURE, UNSPECIFIED Qualifiers: Qualified Code(s): I50.32 - Chronic diastolic (congestive) heart failure (8) Diabetes Code(s): E11.9 - TYPE 2 DIABETES MELLITUS WITHOUT COMPLICATIONS (9) Hx of CABG Code(s): Z95.1 - PRESENCE OF AORTOCORONARY BYPASS GRAFT (10) Hyperlipidemia Code(s): E78.5 - HYPERLIPIDEMIA, UNSPECIFIED Qualifiers: Qualified Code(s): E78.00 - Pure hypercholesterolemia, unspecified; E78.0 - Pure hypercholesterolemia (11) Coumadin toxicity Code(s): T45.511A - POISONING BY ANTICOAGULANTS, ACCIDENTAL, INIT Qualifiers: Qualified Code(s): T45.511A - Poisoning by anticoagulants, accidental ( unintentional), initial encounter (12) Pleural effusion Code(s): J90 - PLEURAL EFFUSION, NOT ELSEWHERE CLASSIFIED Assessment/Plan (1) Anemia Assessment/Plan: -stable -continue xarelto Code(s): D64.9 - ANEMIA, UNSPECIFIED Qualifiers: Anemia type: unspecified type Qualified Code(s): D64.9 - Anemia, unspecified (2) Orthostatic hypotension Assessment/Plan: -still with hypotension in am -continue midodrine tid -monitor for improvement Code(s): R55 - SYNCOPE AND COLLAPSE (3) Hypotension Assessment/Plan: -as above Code(s): I95.9 - HYPOTENSION, UNSPECIFIED Qualifiers: Hypotension type: hypotension due to hypovolemia Qualified Code(s): I95.89 - Other hypotension; E86.1 - Hypovolemia (4) CKD (chronic kidney disease) Assessment/Plan: -stable Code(s): N18.9 - CHRONIC KIDNEY DISEASE, UNSPECIFIED (5) Chronic atrial fibrillation Assessment/Plan: -cardiology following -continue amiodarone and toprol xl -toprol xl increased to 100mg bid this admission -amiodarone decreased to 200mg daily -continue xarelto Code(s): I48.2 - CHRONIC ATRIAL FIBRILLATION (6) Abnormal TSH Assessment/Plan: -suspect secondary to amiodarone -FT4 normal Code(s): R79.89 - OTHER SPECIFIED ABNORMAL FINDINGS OF BLOOD CHEMISTRY (7) CHF (congestive heart failure) Assessment/Plan: -euvolemic -continue oral lasix Code(s): I50.9 - HEART FAILURE, UNSPECIFIED Qualifiers: Heart failure type: diastolic Heart failure chronicity: chronic Qualified Code(s): I50.32 - Chronic diastolic (congestive) heart failure (8) Diabetes Assessment/Plan: -diabetic diet -FSBS and SSI Code(s): E11.9 - TYPE 2 DIABETES MELLITUS WITHOUT COMPLICATIONS Qualifiers: Diabetes mellitus type: type 2 Diabetes mellitus skilled nursing insulin use: without skilled nursing use (9) Hx of CABG Assessment/Plan: -noted Code(s): Z95.1 - PRESENCE OF AORTOCORONARY BYPASS GRAFT (10) Hyperlipidemia Assessment/Plan: -continue home regimen Code(s): E78.5 - HYPERLIPIDEMIA, UNSPECIFIED Qualifiers: Hyperlipidemia type: mixed hyperlipidemia Qualified Code(s): E78.2 - Mixed hyperlipidemia (11) Coumadin toxicity Assessment/Plan: -resolved -continue to monitor Code(s): T45.511A - POISONING BY ANTICOAGULANTS, ACCIDENTAL, INIT Qualifiers: Encounter type: initial encounter Injury intent: accidental or unintentional Qualified Code(s): T45.511A - Poisoning by anticoagulants, accidental (unintentional), initial encounter (12) R pleural effusion -fluid results negative for malignant cells -most likely secondary to CHF -resolved (13) Urine retention -continue flomax -[place] out and urinating -may be able to stop flomax soon
[2019-03-19] MEDS: RIVAROXABAN 15 MG TABLET PO SCH (17:12)
[2019-03-19] MEDS: ATORVASTATIN CA 80 MG TABLET (FP) PO SCH (21:33)
[2019-03-19] MEDS: TAMSULOSIN HCL 0.4 MG CAP PO SCH (21:33)
[2019-03-20] MEDS: INSULIN SLIDING SCALE (NOVOLOG) 1 VIAL SQ SCH ×4 (06:23→21:18)
[2019-03-20 06:26] LABS: BLOOD UREA NITROGEN 30.6 mg/dL (7-18); CALCIUM 9.3 mg/dL (8.5-10.1); CREATININE 1.2 mg/dL (0.55-1.3); MAGNESIUM 2.2 mg/dL (1.8-2.4); POTASSIUM 3.6 mmol/L (3.5-5.1)
[2019-03-20 06:40] LABS: BASO % 0.7 % (0-2.0); EOS % 2.1 % (0-4.5); HEMATOCRIT 28.9 % (32.4-45.2); HEMOGLOBIN 9.9 GM/dL (10.7-15.3); MCHC 34.3 g/dl (32.0-36.0); MEAN CELL VOLUME 90.5 fl (80-96); NEUT % 77.2 % (42.8-82.8); PLATELET COUNT 289 K/MM3 (134-434); RDW 16.8 % (11.6-15.6); WHITE BLOOD COUNT 5.6 K/mm3 (4.0-10.0)
[2019-03-20] MEDS: FOLIC ACID 1 MG TABLET (FP) PO SCH (09:16)
[2019-03-20] MEDS: RANOLAZINE E.R. 500 MG TABLET (FP) PO SCH ×2 (09:16→21:17)
[2019-03-20] MEDS: DOCUSATE SODIUM 100 MG CAPSULE (FP) PO SCH ×2 (09:16→21:17)
[2019-03-20] MEDS: CYANOCOBALAMIN 1,000 MCG TABLET (FP) PO SCH (09:16)
[2019-03-20] MEDS: AMIODARONE HCL 200 MG TABLET (FP) PO SCH (09:16)
[2019-03-20] MEDS: FUROSEMIDE 40 MG TABLET (FP) PO SCH (09:16)
[2019-03-20] MEDS ORDERED: PT OWN MED DRAWER 7, Y5N ONE ×4 (09:22→18:02)
[2019-03-20] MEDS: POLYETHYLENE GLYCOL 3350 119 GM BTL PO SCH ×2 (09:23→21:17)
[2019-03-20] MEDS: MIDODRINE HCL 5 MG TABLET PO SCH ×3 (09:23→18:05)
[2019-03-20] MEDS: MOMETASONE FUROATE 220 MCG/IH INHALER IH SCH ×2 (09:24→21:17)
--- NOTE | 2019-03-20 10:40 | PN ---
Progress Note, Physician Chief Complaint: Remains symptomatic with low blood pressure this morning. Denies cp, sob, n/v. - Current Medication List Current Medications: Active Medications Acetaminophen (Tylenol -) 650 mg PO Q4H PRN PRN Reason: FEVER Last Admin: 03/19/19 02:48 Dose: 650 mg Amiodarone HCl (Cordarone -) 200 mg PO DAILY [facility] Last Admin: 03/20/19 09:16 Dose: 200 mg Atorvastatin Calcium (Lipitor -) 80 mg PO HS [facility] Last Admin: 03/19/19 21:33 Dose: 80 mg Cyanocobalamin (Vitamin B12 -) 1,000 mcg PO DAILY [facility] Last Admin: 03/20/19 09:16 Dose: 1,000 mcg Diltiazem HCl (Cardizem Injection -) 10 mg IVPUSH Q4H PRN PRN Reason: TACHYCARDIA Last Admin: 03/07/19 15:49 Dose: 10 mg Docusate Sodium (Colace -) 100 mg PO BID [facility] Last Admin: 03/20/19 09:16 Dose: 100 mg Folic Acid (Folic Acid -) 1 mg PO DAILY [facility] Last Admin: 03/20/19 09:16 Dose: 1 mg Furosemide (Lasix -) 40 mg PO DAILY [facility] Last Admin: 03/20/19 09:16 Dose: 40 mg Insulin Aspart (Novolog Vial Sliding Scale -) 1 vial SQ ACHS [facility]; Protocol Last Admin: 03/20/19 06:23 Dose: Not Given Metoprolol Succinate (Toprol Xl -) 100 mg PO BID [facility] Last Admin: 03/20/19 09:16 Dose: 100 mg Midodrine (Proamatine -) 5 mg PO TID-MID [facility] Last Admin: 03/20/19 09:23 Dose: 5 mg Mometasone Furoate (Asmanex 220mcg -) 1 puff IH BID [facility] Last Admin: 03/20/19 09:24 Dose: 1 puff Polyethylene Glycol (Miralax (For Daily Use) -) 17 gm PO BID [facility] Last Admin: 03/20/19 09:23 Dose: 17 gm Ranolazine (Ranexa -) 500 mg PO BID [facility] Last Admin: 03/20/19 09:16 Dose: 500 mg Rivaroxaban (Xarelto) 15 mg PO DAILY@1800 [facility] Last Admin: 08/11/19 17:12 Dose: 15 mg Vitamin E (Vitamin E -) 400 unit PO DAILY [facility] Last Admin: 03/19/19 10:23 Dose: 400 unit - Objective Vital Signs: Vital Signs Temperature 36.6 C 03/20/19 02:00 Pulse Rate 102 H 03/20/19 06:00 Respiratory Rate 18 03/20/19 06:00 Blood Pressure 106/67 03/20/19 06:00 O2 Sat by Pulse Oximetry (%) 97 03/19/19 21:00 Constitutional: Yes: Well Nourished, No Distress, Calm Cardiovascular: Yes: Regular Rate and Rhythm. No: Gallop, Murmur, Rub Respiratory: Yes: Regular, CTA Bilaterally. No: Rales, Rhonchi, Wheezes Gastrointestinal: Yes: Normal Bowel Sounds, Soft. No: Distention, Tenderness Extremities: Yes: WNL Edema: No Labs: CBC, BMP 03/20/19 05:15 03/20/19 05:15 INR, PTT INR 1.18 (0.83-1.09) H 03/06/19 05:20 Problem List - Problems (1) Anemia Code(s): D64.9 - ANEMIA, UNSPECIFIED Qualifiers: Anemia type: unspecified type Qualified Code(s): D64.9 - Anemia, unspecified (2) Syncope, near Code(s): R55 - SYNCOPE AND COLLAPSE (3) Hypotension Code(s): I95.9 - HYPOTENSION, UNSPECIFIED Qualifiers: Hypotension type: hypotension due to hypovolemia Qualified Code(s): I95.89 - Other hypotension; E86.1 - Hypovolemia (4) CKD (chronic kidney disease) Code(s): N18.9 - CHRONIC KIDNEY DISEASE, UNSPECIFIED (5) Chronic atrial fibrillation Code(s): I48.2 - CHRONIC ATRIAL FIBRILLATION (6) Abnormal TSH Code(s): R79.89 - OTHER SPECIFIED ABNORMAL FINDINGS OF BLOOD CHEMISTRY (7) CHF (congestive heart failure) Code(s): I50.9 - HEART FAILURE, UNSPECIFIED Qualifiers: Heart failure type: diastolic Heart failure chronicity: chronic Qualified Code(s): I50.32 - Chronic diastolic (congestive) heart failure (8) Diabetes Code(s): E11.9 - TYPE 2 DIABETES MELLITUS WITHOUT COMPLICATIONS Qualifiers: Diabetes mellitus type: type 2 Diabetes mellitus intermediate designer insulin use: without intermediate designer use (9) Hx of CABG Code(s): Z95.1 - PRESENCE OF AORTOCORONARY BYPASS GRAFT (10) Hyperlipidemia Code(s): E78.5 - HYPERLIPIDEMIA, UNSPECIFIED Qualifiers: Hyperlipidemia type: pure hypercholesterolemia Qualified Code(s): E78.00 - Pure hypercholesterolemia, unspecified; E78.0 - Pure hypercholesterolemia (11) Coumadin toxicity Code(s): T45.511A - POISONING BY ANTICOAGULANTS, ACCIDENTAL, INIT Qualifiers: Encounter type: initial encounter Injury intent: accidental or unintentional Qualified Code(s): T45.511A - Poisoning by anticoagulants, accidental (unintentional), initial encounter (12) Pleural effusion Code(s): J90 - PLEURAL EFFUSION, NOT ELSEWHERE CLASSIFIED Assessment/Plan (1) Anemia Assessment/Plan: -stable -continue xarelto Code(s): D64.9 - ANEMIA, UNSPECIFIED Qualifiers: Anemia type: unspecified type Qualified Code(s): D64.9 - Anemia, unspecified (2) Orthostatic hypotension Assessment/Plan: -continue midodrine -will stop flomax to see if contributes -may need other medication, ? if needs florinef Code(s): R55 - SYNCOPE AND COLLAPSE (3) Hypotension Assessment/Plan: -as above Code(s): I95.9 - HYPOTENSION, UNSPECIFIED Qualifiers: Hypotension type: hypotension due to hypovolemia Qualified Code(s): I95.89 - Other hypotension; E86.1 - Hypovolemia (4) CKD (chronic kidney disease) Assessment/Plan: -stable Code(s): N18.9 - CHRONIC KIDNEY DISEASE, UNSPECIFIED (5) Chronic atrial fibrillation Assessment/Plan: -cardiology following -continue amiodarone and toprol xl -toprol xl increased to 100mg bid this admission -amiodarone decreased to 200mg daily -continue xarelto Code(s): I48.2 - CHRONIC ATRIAL FIBRILLATION (6) Abnormal TSH Assessment/Plan: -suspect secondary to amiodarone -FT4 normal Code(s): R79.89 - OTHER SPECIFIED ABNORMAL FINDINGS OF BLOOD CHEMISTRY (7) CHF (congestive heart failure) Assessment/Plan: -euvolemic -continue oral lasix Code(s): I50.9 - HEART FAILURE, UNSPECIFIED Qualifiers: Heart failure type: diastolic Heart failure chronicity: chronic Qualified Code(s): I50.32 - Chronic diastolic (congestive) heart failure (8) Diabetes Assessment/Plan: -diabetic diet -FSBS and SSI Code(s): E11.9 - TYPE 2 DIABETES MELLITUS WITHOUT COMPLICATIONS Qualifiers: Diabetes mellitus type: type 2 Diabetes mellitus intermediate designer insulin use: without intermediate use (9) Hx of CABG Assessment/Plan: -noted Code(s): Z95.1 - PRESENCE OF AORTOCORONARY BYPASS GRAFT (10) Hyperlipidemia Assessment/Plan: -continue home regimen Code(s): E78.5 - HYPERLIPIDEMIA, UNSPECIFIED Qualifiers: Hyperlipidemia type: mixed hyperlipidemia Qualified Code(s): E78.2 - Mixed hyperlipidemia (11) Coumadin toxicity Assessment/Plan: -resolved -continue to monitor Code(s): T45.511A - POISONING BY ANTICOAGULANTS, ACCIDENTAL, INIT Qualifiers: Encounter type: initial encounter Injury intent: accidental or unintentional Qualified Code(s): T45.511A - Poisoning by anticoagulants, accidental (unintentional), initial encounter (12) R pleural effusion -fluid results negative for malignant cells -most likely secondary to CHF -resolved (13) Urine retention -stop flomax today -resolved
--- NOTE | 2019-03-20 11:03 | PN ---
Progress Note, Physician History of Present Illness: Resting comfortably w/o dyspnea or orthopnea on O2 NC, afib remains rate- controlled after medication adjustments. Resolving orthostasis without dizziness after uptitration of midodrine. Started on Flomax for urinary retention and then f/u voiding trial. - Current Medication List Current Medications: Active Medications Acetaminophen (Tylenol -) 650 mg PO Q4H PRN PRN Reason: FEVER Last Admin: 03/19/19 02:48 Dose: 650 mg Amiodarone HCl (Cordarone -) 200 mg PO DAILY [facility] Last Admin: 03/20/19 09:16 Dose: 200 mg Atorvastatin Calcium (Lipitor -) 80 mg PO HS [facility] Last Admin: 03/19/19 21:33 Dose: 80 mg Cyanocobalamin (Vitamin B12 -) 1,000 mcg PO DAILY [facility] Last Admin: 03/20/19 09:16 Dose: 1,000 mcg Diltiazem HCl (Cardizem Injection -) 10 mg IVPUSH Q4H PRN PRN Reason: TACHYCARDIA Last Admin: 03/07/19 15:49 Dose: 10 mg Docusate Sodium (Colace -) 100 mg PO BID [facility] Last Admin: 03/20/19 09:16 Dose: 100 mg Folic Acid (Folic Acid -) 1 mg PO DAILY [facility] Last Admin: 03/20/19 09:16 Dose: 1 mg Furosemide (Lasix -) 40 mg PO DAILY [facility] Last Admin: 03/20/19 09:16 Dose: 40 mg Insulin Aspart (Novolog Vial Sliding Scale -) 1 vial SQ [facility]; Protocol Last Admin: 03/20/19 06:23 Dose: Not Given Metoprolol Succinate (Toprol Xl -) 100 mg PO BID [facility] Last Admin: 03/20/19 09:16 Dose: 100 mg Midodrine (Proamatine -) 5 mg PO TID-MID [facility] Last Admin: 03/20/19 09:23 Dose: 5 mg Mometasone Furoate (Asmanex 220mcg -) 1 puff IH BID [facility] Last Admin: 03/20/19 09:24 Dose: 1 puff Polyethylene Glycol (Miralax (For Daily Use) -) 17 gm PO BID [facility] Last Admin: 03/20/19 09:23 Dose: 17 gm Ranolazine (Ranexa -) 500 mg PO BID [facility] Last Admin: 03/20/19 09:16 Dose: 500 mg Rivaroxaban (Xarelto) 15 mg PO DAILY@1800 [facility] Last Admin: 03/19/19 17:12 Dose: 15 mg Vitamin E (Vitamin E -) 400 unit PO DAILY [facility] Last Admin: 03/19/19 10:23 Dose: 400 unit - Objective Vital Signs: Vital Signs Temperature 98 F 03/20/19 10:00 Pulse Rate 99 H 03/20/19 10:00 Respiratory Rate 18 03/20/19 10:00 Blood Pressure 111/66 03/20/19 10:00 O2 Sat by Pulse Oximetry (%) 97 03/20/19 09:00 Constitutional: Yes: No Distress, Calm Neck: Yes: Supple Cardiovascular: Yes: Pulse Irregular Respiratory: Yes: Regular, Diminished, On Nasal O2 Gastrointestinal: Yes: Normal Bowel Sounds, Soft Edema: No Labs: CBC, BMP 03/20/19 05:15 03/20/19 05:15 INR, PTT INR 1.18 (0.83-1.09) H 03/06/19 05:20 - ....Imaging EKG: Report Reviewed (Tele: Rate-controlled afib) Problem List - Problems (1) Abnormal TSH Code(s): R79.89 - OTHER SPECIFIED ABNORMAL FINDINGS OF BLOOD CHEMISTRY (2) Anemia Code(s): D64.9 - ANEMIA, UNSPECIFIED Qualifiers: Anemia type: unspecified type Qualified Code(s): D64.9 - Anemia, unspecified (3) Hypotension Code(s): I95.9 - HYPOTENSION, UNSPECIFIED Qualifiers: Hypotension type: hypotension due to hypovolemia Qualified Code(s): I95.89 - Other hypotension; E86.1 - Hypovolemia (4) Mesenteric mass Code(s): K63.89 - OTHER SPECIFIED DISEASES OF INTESTINE (5) Portal hypertensive gastropathy Code(s): K76.6 - PORTAL HYPERTENSION; K31.89 - OTHER DISEASES OF STOMACH AND DUODENUM (6) Jjhnz-in-zwclefi kidney injury Code(s): N17.9 - ACUTE KIDNEY FAILURE, UNSPECIFIED; N18.9 - CHRONIC KIDNEY DISEASE, UNSPECIFIED Qualifiers: Chronic kidney disease stage: stage 2 (mild) (7) CHF (congestive heart failure) Code(s): I50.9 - HEART FAILURE, UNSPECIFIED Qualifiers: Heart failure type: diastolic Heart failure chronicity: chronic Qualified Code(s): I50.32 - Chronic diastolic (congestive) heart failure (8) Hx of CABG Code(s): Z95.1 - PRESENCE OF AORTOCORONARY BYPASS GRAFT (9) Hyperlipidemia Code(s): E78.5 - HYPERLIPIDEMIA, UNSPECIFIED Qualifiers: Hyperlipidemia type: pure hypercholesterolemia Qualified Code(s): E78.00 - Pure hypercholesterolemia, unspecified; E78.0 - Pure hypercholesterolemia (10) Hypertension Code(s): I10 - ESSENTIAL (PRIMARY) HYPERTENSION Qualifiers: Hypertension type: essential hypertension Qualified Code(s): I10 - Essential (primary) hypertension (11) Paroxysmal atrial fibrillation with rapid ventricular response Code(s): I48.0 - PAROXYSMAL ATRIAL FIBRILLATION (12) Syncope, near Code(s): R55 - SYNCOPE AND COLLAPSE Assessment/Plan 02/02/2019 Chest CTA: No PE, increased bilateral pleural effusions R>L c/w pulm vascular congestion 02/01/2019 Lexiscan Myoview: No ischemia, LVEF 48% 02/02/2019 Echo: Mild cLVH normal LV and RV size and fxn, mild LAE, mild , tr TR RVSP 23 mmHg, pleural effusion 12/08/2018 Echo: cLVH with normal LVEF 65-70%, mild LAE 4.6 cm, mild CHILO, normal RV size and fxn, mild MR, mild-mod TR RVSP 31 mmHg 1. Recurrent orthostatic hypotension/near syncope 2. Chronic anemia with history of diverticulosis and gastritis 3. Acute on chronic diastolic heart failure and bilateral pleural effusions (R>L ) post R thoracentesis: reactive lymphocytes / negative for malignant cells 4. Persistent AF with improved rate-control 5. CAD s/p CABG, PCI, angina 6. Type 2 DM 7. Hyperlipidemia 8. Acute on CKD 9. HTN 10. RESTREPO with cirrhosis, cholelithiasis 11. 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 Abnormal TSH, ? sick euthyroid vs Amiodarone effects 14. Urinary retention PLAN: 1. Continue home dose Lasix 40 po qd with monitor diuretic response, renal fxn and electrolytes 2. Continue renal-dosed Xarelto 15 mg QD 3. Continue Toprol XL 100 mg BID, increase midodrine 5 tid 4. Continue Ranexa 500 mg BID, Amiodarone 200 mg QD, Lipitor 80 mg QD and eventually Vascepa 2 mg BID 5. Bronchodilator and O2 as needed 6. Flomax 0.4 qhs with voiding trial at SNF 7. PT->SNF, d/c planning
--- NOTE | 2019-03-20 11:33 | PN ---
Progress Note, Physician History of Present Illness: PULMONARY ALERT,NO DISTRESS,-SOB,-CP,REMAINS ORTHOSTATIC - Current Medication List Current Medications: Active Medications Acetaminophen (Tylenol -) 650 mg PO Q4H PRN PRN Reason: FEVER Last Admin: 03/19/19 02:48 Dose: 650 mg Amiodarone HCl (Cordarone -) 200 mg PO DAILY [facility] Last Admin: 03/20/19 09:16 Dose: 200 mg Atorvastatin Calcium (Lipitor -) 80 mg PO HS [facility] Last Admin: 03/19/19 21:33 Dose: 80 mg Cyanocobalamin (Vitamin B12 -) 1,000 mcg PO DAILY [facility] Last Admin: 03/20/19 09:16 Dose: 1,000 mcg Diltiazem HCl (Cardizem Injection -) 10 mg IVPUSH Q4H PRN PRN Reason: TACHYCARDIA Last Admin: 03/07/19 15:49 Dose: 10 mg Docusate Sodium (Colace -) 100 mg PO BID [facility] Last Admin: 03/20/19 09:16 Dose: 100 mg Folic Acid (Folic Acid -) 1 mg PO DAILY [facility] Last Admin: 03/20/19 09:16 Dose: 1 mg Furosemide (Lasix -) 40 mg PO DAILY [facility] Last Admin: 03/20/19 09:16 Dose: 40 mg Insulin Aspart (Novolog Vial Sliding Scale -) 1 vial SQ ACHS [facility]; Protocol Last Admin: 03/20/19 06:23 Dose: Not Given Metoprolol Succinate (Toprol Xl -) 100 mg PO BID [facility] Last Admin: 03/20/19 09:16 Dose: 100 mg Midodrine (Proamatine -) 5 mg PO TID-MID [facility] Last Admin: 03/20/19 09:23 Dose: 5 mg Mometasone Furoate (Asmanex 220mcg -) 1 puff IH BID [facility] Last Admin: 03/20/19 09:24 Dose: 1 puff Polyethylene Glycol (Miralax (For Daily Use) -) 17 gm PO BID [facility] Last Admin: 03/20/19 09:23 Dose: 17 gm Ranolazine (Ranexa -) 500 mg PO BID [facility] Last Admin: 03/20/19 09:16 Dose: 500 mg Rivaroxaban (Xarelto) 15 mg PO DAILY@1800 [facility] Last Admin: 03/19/19 17:12 Dose: 15 mg Vitamin E (Vitamin E -) 400 unit PO DAILY [facility] Last Admin: 03/19/19 10:23 Dose: 400 unit - Objective Vital Signs: Vital Signs Temperature 98 F 03/20/19 10:00 Pulse Rate 99 H 03/20/19 10:00 Respiratory Rate 18 03/20/19 10:00 Blood Pressure 111/66 03/20/19 10:00 O2 Sat by Pulse Oximetry (%) 97 03/20/19 09:00 Constitutional: Yes: Well Nourished, Calm Eyes: Yes: WNL HENT: Yes: WNL Neck: Yes: WNL Cardiovascular: Yes: Pulse Irregular, S1, S2 Respiratory: Yes: Diminished Gastrointestinal: Yes: Normal Bowel Sounds, Soft Labs: CBC, BMP 03/20/19 05:15 03/20/19 05:15 INR, PTT INR 1.18 (0.83-1.09) H 03/06/19 05:20 Problem List - Problems (1) Abnormal TSH Code(s): R79.89 - OTHER SPECIFIED ABNORMAL FINDINGS OF BLOOD CHEMISTRY (2) Anemia Code(s): D64.9 - ANEMIA, UNSPECIFIED Qualifiers: Anemia type: unspecified type Qualified Code(s): D64.9 - Anemia, unspecified (3) CKD (chronic kidney disease) Code(s): N18.9 - CHRONIC KIDNEY DISEASE, UNSPECIFIED (4) Cirrhosis of liver not due to alcohol Code(s): K74.60 - UNSPECIFIED CIRRHOSIS OF LIVER (5) Hypotension Code(s): I95.9 - HYPOTENSION, UNSPECIFIED Qualifiers: Hypotension type: hypotension due to hypovolemia Qualified Code(s): I95.89 - Other hypotension; E86.1 - Hypovolemia (6) Mesenteric mass Code(s): K63.89 - OTHER SPECIFIED DISEASES OF INTESTINE (7) [id number]-swbqgvj kidney injury Code(s): N17.9 - ACUTE KIDNEY FAILURE, UNSPECIFIED; N18.9 - CHRONIC KIDNEY DISEASE, UNSPECIFIED Qualifiers: Chronic kidney disease stage: stage 2 (mild) (8) CHF (congestive heart failure) Code(s): I50.9 - HEART FAILURE, UNSPECIFIED Qualifiers: Heart failure type: diastolic Heart failure chronicity: chronic Qualified Code(s): I50.32 - Chronic diastolic (congestive) heart failure (9) Diabetes Code(s): E11.9 - TYPE 2 DIABETES MELLITUS WITHOUT COMPLICATIONS Qualifiers: Diabetes mellitus type: type 2 Diabetes mellitus senior living insulin use: without terminal gauger use (10) Hx of CABG Code(s): Z95.1 - PRESENCE OF AORTOCORONARY BYPASS GRAFT (11) Hyperlipidemia Code(s): E78.5 - HYPERLIPIDEMIA, UNSPECIFIED Qualifiers: Hyperlipidemia type: pure hypercholesterolemia Qualified Code(s): E78.00 - Pure hypercholesterolemia, unspecified; E78.0 - Pure hypercholesterolemia (12) Hypertension Code(s): I10 - ESSENTIAL (PRIMARY) HYPERTENSION Qualifiers: Hypertension type: essential hypertension Qualified Code(s): I10 - Essential (primary) hypertension (13) Pleural effusion Code(s): J90 - PLEURAL EFFUSION, NOT ELSEWHERE CLASSIFIED (14) Shortness of breath Code(s): R06.02 - SHORTNESS OF BREATH (15) Syncope, near Code(s): R55 - SYNCOPE AND COLLAPSE Assessment/Plan IMP DYSPNEA IMPROVED ACUTE ON CHRONIC CHF BILATERAL PLEURAL EFFUSIONS SECONDARY TO CHF NEAR SYNCOPE PULMONARY NODULES STABLE ASHD A/P CABG AFIB DM ANEMIA ACUTE ON CHRONIC KIDNEY DISEASE CIRRHOSIS SECONDARY TO RESTREPO MESENTERIC MASS ORTHOSTATIC HYPOTENSION PLAN DIURETICS O2 DAILY WTS RATE CONTROL PER CARDIOLOGY STRICT I+OS MONITOR LYTES,RENAL FUNCTION F/U CHEST-RAYS MONITOR BP DR JEAN BAPTISTE Problem List - Problems (1) Abnormal TSH Code(s): R79.89 - OTHER SPECIFIED ABNORMAL FINDINGS OF BLOOD CHEMISTRY (2) Anemia Code(s): D64.9 - ANEMIA, UNSPECIFIED Qualifiers: Anemia type: unspecified type Qualified Code(s): D64.9 - Anemia, unspecified (3) CKD (chronic kidney disease) Code(s): N18.9 - CHRONIC KIDNEY DISEASE, UNSPECIFIED (4) Cirrhosis of liver not due to alcohol Code(s): K74.60 - UNSPECIFIED CIRRHOSIS OF LIVER (5) Hypotension Code(s): I95.9 - HYPOTENSION, UNSPECIFIED Qualifiers: Hypotension type: hypotension due to hypovolemia Qualified Code(s): I95.89 - Other hypotension; E86.1 - Hypovolemia (6) Mesenteric mass Code(s): K63.89 - OTHER SPECIFIED DISEASES OF INTESTINE (7) Jksho-ml-vhqlqrj kidney injury Code(s): N17.9 - ACUTE KIDNEY FAILURE, UNSPECIFIED; N18.9 - CHRONIC KIDNEY DISEASE, UNSPECIFIED Qualifiers: Chronic kidney disease stage: stage 2 (mild) (8) CHF (congestive heart failure) Code(s): I50.9 - HEART FAILURE, UNSPECIFIED Qualifiers: Heart failure type: diastolic Heart failure chronicity: chronic Qualified Code(s): I50.32 - Chronic diastolic (congestive) heart failure (9) Diabetes Code(s): E11.9 - TYPE 2 DIABETES MELLITUS WITHOUT COMPLICATIONS Qualifiers: Diabetes mellitus type: type 2 Diabetes mellitus terminal gauger insulin use: without terminal gauger use (10) Hx of CABG Code(s): Z95.1 - PRESENCE OF AORTOCORONARY BYPASS GRAFT (11) Hyperlipidemia Code(s): E78.5 - HYPERLIPIDEMIA, UNSPECIFIED Qualifiers: Hyperlipidemia type: mixed hyperlipidemia Qualified Code(s): E78.2 - Mixed hyperlipidemia (12) Hypertension Code(s): I10 - ESSENTIAL (PRIMARY) HYPERTENSION Qualifiers: Hypertension type: essential hypertension Qualified Code(s): I10 - Essential (primary) hypertension (13) Pleural effusion Code(s): J90 - PLEURAL EFFUSION, NOT ELSEWHERE CLASSIFIED (14) Shortness of breath Code(s): R06.02 - SHORTNESS OF BREATH (15) Syncope, near Code(s): R55 - SYNCOPE AND COLLAPSE
[2019-03-20] MEDS: VITAMIN E 400 INTERNATIONAL-UNITS CAPSULE (FP) PO SCH (11:48)
[2019-03-20] MEDS: RIVAROXABAN 15 MG TABLET PO SCH (18:06)
[2019-03-20] MEDS: ATORVASTATIN CA 80 MG TABLET (FP) PO SCH (21:17)
[2019-03-20 23:24] VITALS: BMI 24.4
[2019-03-21] MEDS: INSULIN SLIDING SCALE (NOVOLOG) 1 VIAL SQ SCH ×4 (06:27→22:17)
[2019-03-21 07:40] LABS: EOS % 1.7 % (0-4.5); HEMATOCRIT 27.8 % (32.4-45.2); HEMOGLOBIN 9.8 GM/dL (10.7-15.3); LYMPH % 12.1 % (8-40); MCH 31.5 pg (25.7-33.7); MEAN CELL VOLUME 89.9 fl (80-96); MEAN PLT VOLUME 9.1 fl (7.5-11.1); MONO % 7.1 % (3.8-10.2); NEUT % 78.1 % (42.8-82.8); PLATELET COUNT 316 K/MM3 (134-434); RDW 16.4 % (11.6-15.6); WHITE BLOOD COUNT 5.9 K/mm3 (4.0-10.0)
[2019-03-21 07:55] LABS: BLOOD UREA NITROGEN 30.3 mg/dL (7-18); CALCIUM 9.3 mg/dL (8.5-10.1); CREATININE 1.2 mg/dL (0.55-1.3); MAGNESIUM 2.3 mg/dL (1.8-2.4); PHOSPHOROUS 3.4 mg/dL (2.5-4.9); POTASSIUM 3.9 mmol/L (3.5-5.1)
[2019-03-21] MEDS ORDERED: PT OWN MED DRAWER 7, Y5N ONE (10:14)
[2019-03-21] MEDS: RANOLAZINE E.R. 500 MG TABLET (FP) PO SCH ×2 (10:18→22:17)
[2019-03-21] MEDS: DOCUSATE SODIUM 100 MG CAPSULE (FP) PO SCH ×2 (10:18→22:17)
[2019-03-21] MEDS: FOLIC ACID 1 MG TABLET (FP) PO SCH (10:18)
[2019-03-21] MEDS: FUROSEMIDE 40 MG TABLET (FP) PO SCH (10:18)
[2019-03-21] MEDS: CYANOCOBALAMIN 1,000 MCG TABLET (FP) PO SCH (10:18)
[2019-03-21] MEDS: AMIODARONE HCL 200 MG TABLET (FP) PO SCH (10:18)
[2019-03-21] MEDS: MIDODRINE HCL 5 MG TABLET PO SCH ×3 (10:19→17:13)
[2019-03-21] MEDS: VITAMIN E 400 INTERNATIONAL-UNITS CAPSULE (FP) PO SCH (10:19)
[2019-03-21] MEDS: MOMETASONE FUROATE 220 MCG/IH INHALER IH SCH ×2 (10:19→22:17)
[2019-03-21] MEDS: POLYETHYLENE GLYCOL 3350 119 GM BTL PO SCH ×2 (10:20→22:22)
--- NOTE | 2019-03-21 10:39 | PN ---
Progress Note, Physician Chief Complaint: Ms Alexis says she still feels dizzy when sitting and standing. Denies cp, sob, n /v. - Current Medication List Current Medications: Active Medications Acetaminophen (Tylenol -) 650 mg PO Q4H PRN PRN Reason: FEVER Last Admin: 03/19/19 02:48 Dose: 650 mg Amiodarone HCl (Cordarone -) 200 mg PO DAILY [facility] Last Admin: 03/21/19 10:18 Dose: 200 mg Atorvastatin Calcium (Lipitor -) 80 mg PO HS [facility] Last Admin: 03/20/19 21:17 Dose: 80 mg Cyanocobalamin (Vitamin B12 -) 1,000 mcg PO DAILY [facility] Last Admin: 03/21/19 10:18 Dose: 1,000 mcg Diltiazem HCl (Cardizem Injection -) 10 mg IVPUSH Q4H PRN PRN Reason: TACHYCARDIA Last Admin: 03/07/19 15:49 Dose: 10 mg Docusate Sodium (Colace -) 100 mg PO BID [facility] Last Admin: 03/21/19 10:18 Dose: 100 mg Folic Acid (Folic Acid -) 1 mg PO DAILY [facility] Last Admin: 03/21/19 10:18 Dose: 1 mg Furosemide (Lasix -) 40 mg PO DAILY [facility] Last Admin: 03/21/19 10:18 Dose: 40 mg Insulin Aspart (Novolog Vial Sliding Scale -) 1 vial SQ ACHS [facility]; Protocol Last Admin: 03/21/19 06:27 Dose: Not Given Metoprolol Succinate (Toprol Xl -) 100 mg PO BID [facility] Last Admin: 03/21/19 10:18 Dose: 100 mg Midodrine (Proamatine -) 5 mg PO TID-MID [facility] Last Admin: 03/21/19 10:19 Dose: 5 mg Mometasone Furoate (Asmanex 220mcg -) 1 puff IH BID [facility] Last Admin: 03/21/19 10:19 Dose: 1 puff Polyethylene Glycol (Miralax (For Daily Use) -) 17 gm PO BID [facility] Last Admin: 03/21/19 10:20 Dose: Not Given Ranolazine (Ranexa -) 500 mg PO BID [facility] Last Admin: 03/21/19 10:18 Dose: 500 mg Rivaroxaban (Xarelto) 15 mg PO DAILY@1800 [facility] Last Admin: 03/20/19 18:06 Dose: 15 mg Vitamin E (Vitamin E -) 400 unit PO DAILY [facility] Last Admin: 03/21/19 10:19 Dose: 400 unit - Objective Vital Signs: Vital Signs Temperature 36.9 C 03/21/19 06:00 Pulse Rate 104 H 03/21/19 06:00 Respiratory Rate 20 03/21/19 06:00 Blood Pressure 119/58 L 03/21/19 06:00 O2 Sat by Pulse Oximetry (%) 97 03/20/19 19:47 Constitutional: Yes: Well Nourished, No Distress, Calm Cardiovascular: Yes: Regular Rate and Rhythm. No: Gallop, Murmur, Rub Respiratory: Yes: Regular, CTA Bilaterally. No: Rales, Rhonchi, Wheezes Gastrointestinal: Yes: Normal Bowel Sounds, Soft. No: Distention, Tenderness Extremities: Yes: WNL Edema: No Labs: CBC, BMP 03/21/19 06:30 03/21/19 06:30 INR, PTT INR 1.18 (0.83-1.09) H 03/06/19 05:20 Problem List - Problems (1) Anemia Code(s): D64.9 - ANEMIA, UNSPECIFIED Qualifiers: Anemia type: unspecified type Qualified Code(s): D64.9 - Anemia, unspecified (2) Syncope, near Code(s): R55 - SYNCOPE AND COLLAPSE (3) Hypotension Code(s): I95.9 - HYPOTENSION, UNSPECIFIED Qualifiers: Hypotension type: hypotension due to hypovolemia Qualified Code(s): I95.89 - Other hypotension; E86.1 - Hypovolemia (4) CKD (chronic kidney disease) Code(s): N18.9 - CHRONIC KIDNEY DISEASE, UNSPECIFIED (5) Chronic atrial fibrillation Code(s): I48.2 - CHRONIC ATRIAL FIBRILLATION (6) Abnormal TSH Code(s): R79.89 - OTHER SPECIFIED ABNORMAL FINDINGS OF BLOOD CHEMISTRY (7) CHF (congestive heart failure) Code(s): I50.9 - HEART FAILURE, UNSPECIFIED Qualifiers: Heart failure type: diastolic Heart failure chronicity: chronic Qualified Code(s): I50.32 - Chronic diastolic (congestive) heart failure (8) Diabetes Code(s): E11.9 - TYPE 2 DIABETES MELLITUS WITHOUT COMPLICATIONS Qualifiers: Diabetes mellitus type: type 2 Diabetes mellitus terminal computer operator insulin use: without fpc use (9) Hx of CABG Code(s): Z95.1 - PRESENCE OF AORTOCORONARY BYPASS GRAFT (10) Hyperlipidemia Code(s): E78.5 - HYPERLIPIDEMIA, UNSPECIFIED Qualifiers: Hyperlipidemia type: pure hypercholesterolemia Qualified Code(s): E78.00 - Pure hypercholesterolemia, unspecified; E78.0 - Pure hypercholesterolemia (11) Coumadin toxicity Code(s): T45.511A - POISONING BY ANTICOAGULANTS, ACCIDENTAL, INIT Qualifiers: Encounter type: initial encounter Injury intent: accidental or unintentional Qualified Code(s): T45.511A - Poisoning by anticoagulants, accidental (unintentional), initial encounter (12) Pleural effusion Code(s): J90 - PLEURAL EFFUSION, NOT ELSEWHERE CLASSIFIED Assessment/Plan (1) Anemia Assessment/Plan: -stable -continue xarelto Code(s): D64.9 - ANEMIA, UNSPECIFIED Qualifiers: Anemia type: unspecified type Qualified Code(s): D64.9 - Anemia, unspecified (2) Orthostatic hypotension Assessment/Plan: -continue midodrine -d/w patient today, has some hesitancy about sitting up and standing and wants to lie down all day -explained to patient that she is becoming deconditioned and needs to engage more, even if she feels slightly dizzy -d/w PT and RN, saying do not lie flat today -patient needs to be sitting up to adjust to new lower blood pressures -unstable for discharge today but expect she will be ready in next 48-72 hours if not allowed to be supine for majority of day Code(s): R55 - SYNCOPE AND COLLAPSE (3) Hypotension Assessment/Plan: -as above Code(s): I95.9 - HYPOTENSION, UNSPECIFIED Qualifiers: Hypotension type: hypotension due to hypovolemia Qualified Code(s): I95.89 - Other hypotension; E86.1 - Hypovolemia (4) CKD (chronic kidney disease) Assessment/Plan: -stable Code(s): N18.9 - CHRONIC KIDNEY DISEASE, UNSPECIFIED (5) Chronic atrial fibrillation Assessment/Plan: -cardiology following -continue amiodarone and toprol xl -toprol xl increased to 100mg bid this admission -amiodarone decreased to 200mg daily -continue xarelto Code(s): I48.2 - CHRONIC ATRIAL FIBRILLATION (6) Abnormal TSH Assessment/Plan: -suspect secondary to amiodarone -FT4 normal Code(s): R79.89 - OTHER SPECIFIED ABNORMAL FINDINGS OF BLOOD CHEMISTRY (7) CHF (congestive heart failure) Assessment/Plan: -euvolemic -continue oral lasix Code(s): I50.9 - HEART FAILURE, UNSPECIFIED Qualifiers: Heart failure type: diastolic Heart failure chronicity: chronic Qualified Code(s): I50.32 - Chronic diastolic (congestive) heart failure (8) Diabetes Assessment/Plan: -diabetic diet -FSBS and SSI Code(s): E11.9 - TYPE 2 DIABETES MELLITUS WITHOUT COMPLICATIONS Qualifiers: Diabetes mellitus type: type 2 Diabetes mellitus terminal computer operator insulin use: without terminal computer operator use (9) Hx of CABG Assessment/Plan: -noted Code(s): Z95.1 - PRESENCE OF AORTOCORONARY BYPASS GRAFT (10) Hyperlipidemia Assessment/Plan: -continue home regimen Code(s): E78.5 - HYPERLIPIDEMIA, UNSPECIFIED Qualifiers: Hyperlipidemia type: mixed hyperlipidemia Qualified Code(s): E78.2 - Mixed hyperlipidemia (11) Coumadin toxicity Assessment/Plan: -resolved -continue to monitor Code(s): T45.511A - POISONING BY ANTICOAGULANTS, ACCIDENTAL, INIT Qualifiers: Encounter type: initial encounter Injury intent: accidental or unintentional Qualified Code(s): T45.511A - Poisoning by anticoagulants, accidental (unintentional), initial encounter (12) R pleural effusion -fluid results negative for malignant cells -most likely secondary to CHF -resolved (13) Urine retention -stop flomax today -resolved Dispo -patient instructed to engage more in activity and not just be supine all day -patient expressed understanding and willingness to engage -instructed RN and PT to have patient sitting up as well -possible discharge in next 48-72 hours
--- NOTE | 2019-03-21 11:55 | PN ---
Progress Note, Physician Chief Complaint: Events noted Not in distress but with orthostatic hypotension at times History of Present Illness: Patient was seen and examined. Awake and alert. Chart was reviewed Denies chest pain or SOB - Current Medication List Current Medications: Active Medications Acetaminophen (Tylenol -) 650 mg PO Q4H PRN PRN Reason: FEVER Last Admin: 03/19/19 02:48 Dose: 650 mg Amiodarone HCl (Cordarone -) 200 mg PO DAILY [facility] Last Admin: 03/21/19 10:18 Dose: 200 mg Atorvastatin Calcium (Lipitor -) 80 mg PO HS [facility] Last Admin: 03/20/19 21:17 Dose: 80 mg Cyanocobalamin (Vitamin B12 -) 1,000 mcg PO DAILY [facility] Last Admin: 03/21/19 10:18 Dose: 1,000 mcg Diltiazem HCl (Cardizem Injection -) 10 mg IVPUSH Q4H PRN PRN Reason: TACHYCARDIA Last Admin: 03/07/19 15:49 Dose: 10 mg Docusate Sodium (Colace -) 100 mg PO BID [facility] Last Admin: 03/21/19 10:18 Dose: 100 mg Folic Acid (Folic Acid -) 1 mg PO DAILY [facility] Last Admin: 03/21/19 10:18 Dose: 1 mg Furosemide (Lasix -) 40 mg PO DAILY [facility] Last Admin: 03/21/19 10:18 Dose: 40 mg Insulin Aspart (Novolog Vial Sliding Scale -) 1 vial SQ [facility]; Protocol Last Admin: 03/21/19 11:24 Dose: 6 units Metoprolol Succinate (Toprol Xl -) 100 mg PO BID [facility] Last Admin: 03/21/19 10:18 Dose: 100 mg Midodrine (Proamatine -) 5 mg PO TID-MID [facility] Last Admin: 03/21/19 10:19 Dose: 5 mg Mometasone Furoate (Asmanex 220mcg -) 1 puff IH BID [facility] Last Admin: 03/21/19 10:19 Dose: 1 puff Polyethylene Glycol (Miralax (For Daily Use) -) 17 gm PO BID [facility] Last Admin: 03/21/19 10:20 Dose: Not Given Ranolazine (Ranexa -) 500 mg PO BID [facility] Last Admin: 03/21/19 10:18 Dose: 500 mg Rivaroxaban (Xarelto) 15 mg PO DAILY@1800 [facility] Last Admin: 03/20/19 18:06 Dose: 15 mg Vitamin E (Vitamin E -) 400 unit PO DAILY [facility] Last Admin: 03/21/19 10:19 Dose: 400 unit - Objective Vital Signs: Vital Signs Temperature 98.1 F 03/21/19 10:15 Pulse Rate 94 H 03/21/19 10:15 Respiratory Rate 18 03/21/19 10:15 Blood Pressure 110/53 L 03/21/19 10:15 O2 Sat by Pulse Oximetry (%) 97 03/20/19 19:47 Eyes: Yes: PERRL HENT: Yes: Atraumatic Neck: Yes: Supple Cardiovascular: Yes: Pulse Irregular, S1, S2 Respiratory: Yes: CTA Bilaterally Gastrointestinal: Yes: Normal Bowel Sounds, Soft. No: Tenderness Edema: No Additional Findings/Remarks: - Review of Systems Constitutional: reports: Weakness. denies: Chills, Fever Cardiovascular: denies: Palpitations, Shortness of Breath. denies: Chest Pain Respiratory: denies: Cough, Hemoptysis, Orthopnea, PND Gastrointestinal: denies: Abdominal Pain, Constipation, Diarrhea, Melena, Nausea , Rectal Bleeding, Vomiting Genitourinary: denies: Dysuria Neurological: denies: Dizziness, Headache, Seizure, Syncope Labs: CBC, BMP 03/21/19 06:30 03/21/19 06:30 Problem List - Problems (1) Abnormal TSH Code(s): R79.89 - OTHER SPECIFIED ABNORMAL FINDINGS OF BLOOD CHEMISTRY (2) Anemia Code(s): D64.9 - ANEMIA, UNSPECIFIED Qualifiers: Anemia type: unspecified type Qualified Code(s): D64.9 - Anemia, unspecified (3) CKD (chronic kidney disease) Code(s): N18.9 - CHRONIC KIDNEY DISEASE, UNSPECIFIED (4) Chronic atrial fibrillation Code(s): I48.2 - CHRONIC ATRIAL FIBRILLATION (5) Cirrhosis of liver not due to alcohol Code(s): K74.60 - UNSPECIFIED CIRRHOSIS OF LIVER (6) Mesenteric mass Code(s): K63.89 - OTHER SPECIFIED DISEASES OF INTESTINE (7) Nahwg-fm-glegtum kidney injury Code(s): N17.9 - ACUTE KIDNEY FAILURE, UNSPECIFIED; N18.9 - CHRONIC KIDNEY DISEASE, UNSPECIFIED Qualifiers: Chronic kidney disease stage: stage 2 (mild) (8) CHF (congestive heart failure) Code(s): I50.9 - HEART FAILURE, UNSPECIFIED Qualifiers: Heart failure type: diastolic Heart failure chronicity: chronic Qualified Code(s): I50.32 - Chronic diastolic (congestive) heart failure (9) Diabetes Code(s): E11.9 - TYPE 2 DIABETES MELLITUS WITHOUT COMPLICATIONS Qualifiers: Diabetes mellitus type: type 2 Diabetes mellitus detention insulin use: without buttermaker use (10) Hx of CABG Code(s): Z95.1 - PRESENCE OF AORTOCORONARY BYPASS GRAFT (11) Hyperlipidemia Code(s): E78.5 - HYPERLIPIDEMIA, UNSPECIFIED Qualifiers: Hyperlipidemia type: pure hypercholesterolemia Qualified Code(s): E78.00 - Pure hypercholesterolemia, unspecified; E78.0 - Pure hypercholesterolemia (12) Hypertension Code(s): I10 - ESSENTIAL (PRIMARY) HYPERTENSION Qualifiers: Hypertension type: essential hypertension Qualified Code(s): I10 - Essential (primary) hypertension (13) Paroxysmal atrial fibrillation with rapid ventricular response Code(s): I48.0 - PAROXYSMAL ATRIAL FIBRILLATION Assessment/Plan 1. Recurrent orthostatic hypotension/near syncope 2. Chronic anemia with history of diverticulosis and gastritis 3. Acute on chronic diastolic heart failure and bilateral pleural effusions (R>L ) post right thoracentesis: reactive lymphocytes/negative for malignant cells 4. Persistent AF with improved rate-control 5. CAD s/p CABG, PCI, angina 6. Type 2 DM 7. Hyperlipidemia 8. Acute on CKD 9. HTN 10. RESTREPO with cirrhosis and cholelithiasis 11. 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 Abnormal TSH, ?sick euthyroid vs Amiodarone effects 14. Urinary retention PLAN: 1. Continue home dose Lasix 40 mg QD with monitoring renal function and electrolytes 2. Continue renal-dose Xarelto 15 mg QD 3. Continue Toprol XL 100 mg BID and increase Midodrine 5 mg TID 4. Continue Ranexa 500 mg BID, Amiodarone 200 mg QD, Lipitor 80 mg QD and eventually Vascepa 2 mg BID 5. Bronchodilator and O2 as needed 6. Flomax 0.4 mg QHS 7. Discharge planning if feasible to [facility] Jose Raul Brannon MD
--- NOTE | 2019-03-21 12:16 | PN ---
Progress Note, Physician History of Present Illness: pulmonary alert,no distress,remains orthostatic,-sob,-cp - Current Medication List Current Medications: Active Medications Acetaminophen (Tylenol -) 650 mg PO Q4H PRN PRN Reason: FEVER Last Admin: 03/19/19 02:48 Dose: 650 mg Amiodarone HCl (Cordarone -) 200 mg PO DAILY [facility] Last Admin: 03/21/19 10:18 Dose: 200 mg Atorvastatin Calcium (Lipitor -) 80 mg PO HS [facility] Last Admin: 03/20/19 21:17 Dose: 80 mg Cyanocobalamin (Vitamin B12 -) 1,000 mcg PO DAILY [facility] Last Admin: 03/21/19 10:18 Dose: 1,000 mcg Diltiazem HCl (Cardizem Injection -) 10 mg IVPUSH Q4H PRN PRN Reason: TACHYCARDIA Last Admin: 03/07/19 15:49 Dose: 10 mg Docusate Sodium (Colace -) 100 mg PO BID [facility] Last Admin: 03/21/19 10:18 Dose: 100 mg Folic Acid (Folic Acid -) 1 mg PO DAILY [facility] Last Admin: 03/21/19 10:18 Dose: 1 mg Furosemide (Lasix -) 40 mg PO DAILY [facility] Last Admin: 03/21/19 10:18 Dose: 40 mg Insulin Aspart (Novolog Vial Sliding Scale -) 1 vial SQ [facility]S [facility]; Protocol Last Admin: 03/21/19 11:24 Dose: 6 units Metoprolol Succinate (Toprol Xl -) 100 mg PO BID [facility] Last Admin: 03/21/19 10:18 Dose: 100 mg Midodrine (Proamatine -) 5 mg PO TID-MID [facility] Last Admin: 03/21/19 10:19 Dose: 5 mg Mometasone Furoate (Asmanex 220mcg -) 1 puff IH BID [facility] Last Admin: 03/21/19 10:19 Dose: 1 puff Polyethylene Glycol (Miralax (For Daily Use) -) 17 gm PO BID [facility] Last Admin: 03/21/19 10:20 Dose: Not Given Ranolazine (Ranexa -) 500 mg PO BID [facility] Last Admin: 03/21/19 10:18 Dose: 500 mg Rivaroxaban (Xarelto) 15 mg PO DAILY@1800 [facility] Last Admin: 03/20/19 18:06 Dose: 15 mg Vitamin E (Vitamin E -) 400 unit PO DAILY [facility] Last Admin: 03/21/19 10:19 Dose: 400 unit - Objective Vital Signs: Vital Signs Temperature 98.1 F 03/21/19 10:15 Pulse Rate 94 H 03/21/19 10:15 Respiratory Rate 18 03/21/19 10:15 Blood Pressure 110/53 L 03/21/19 10:15 O2 Sat by Pulse Oximetry (%) 97 03/20/19 19:47 Constitutional: Yes: Well Nourished, Calm Eyes: Yes: WNL HENT: Yes: WNL Neck: Yes: WNL Cardiovascular: Yes: Pulse Irregular, S1, S2 Respiratory: Yes: Diminished Gastrointestinal: Yes: Normal Bowel Sounds, Soft Extremities: Yes: WNL Edema: Yes Labs: CBC, BMP 03/21/19 06:30 03/21/19 06:30 INR, PTT INR 1.18 (0.83-1.09) H 03/06/19 05:20 Problem List - Problems (1) Abnormal TSH Code(s): R79.89 - OTHER SPECIFIED ABNORMAL FINDINGS OF BLOOD CHEMISTRY (2) Anemia Code(s): D64.9 - ANEMIA, UNSPECIFIED Qualifiers: Anemia type: unspecified type Qualified Code(s): D64.9 - Anemia, unspecified (3) CKD (chronic kidney disease) Code(s): N18.9 - CHRONIC KIDNEY DISEASE, UNSPECIFIED (4) Cirrhosis of liver not due to alcohol Code(s): K74.60 - UNSPECIFIED CIRRHOSIS OF LIVER (5) Hypotension Code(s): I95.9 - HYPOTENSION, UNSPECIFIED Qualifiers: Hypotension type: hypotension due to hypovolemia Qualified Code(s): I95.89 - Other hypotension; E86.1 - Hypovolemia (6) Mesenteric mass Code(s): K63.89 - OTHER SPECIFIED DISEASES OF INTESTINE (7) Hnrer-vk-yjtopny kidney injury Code(s): N17.9 - ACUTE KIDNEY FAILURE, UNSPECIFIED; N18.9 - CHRONIC KIDNEY DISEASE, UNSPECIFIED Qualifiers: Chronic kidney disease stage: stage 2 (mild) (8) CHF (congestive heart failure) Code(s): I50.9 - HEART FAILURE, UNSPECIFIED Qualifiers: Heart failure type: diastolic Heart failure chronicity: chronic Qualified Code(s): I50.32 - Chronic diastolic (congestive) heart failure (9) Diabetes Code(s): E11.9 - TYPE 2 DIABETES MELLITUS WITHOUT COMPLICATIONS Qualifiers: Diabetes mellitus type: type 2 Diabetes mellitus group home insulin use: without 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 (10) Hx of CABG Code(s): Z95.1 - PRESENCE OF AORTOCORONARY BYPASS GRAFT (11) Hyperlipidemia Code(s): E78.5 - HYPERLIPIDEMIA, UNSPECIFIED Qualifiers: Hyperlipidemia type: pure hypercholesterolemia Qualified Code(s): E78.00 - Pure hypercholesterolemia, unspecified; E78.0 - Pure hypercholesterolemia (12) Hypertension Code(s): I10 - ESSENTIAL (PRIMARY) HYPERTENSION Qualifiers: Hypertension type: essential hypertension Qualified Code(s): I10 - Essential (primary) hypertension (13) Pleural effusion Code(s): J90 - PLEURAL EFFUSION, NOT ELSEWHERE CLASSIFIED (14) Shortness of breath Code(s): R06.02 - SHORTNESS OF BREATH (15) Syncope, near Code(s): R55 - SYNCOPE AND COLLAPSE Assessment/Plan IMP DYSPNEA IMPROVED ACUTE ON CHRONIC CHF BILATERAL PLEURAL EFFUSIONS SECONDARY TO CHF NEAR SYNCOPE PULMONARY NODULES STABLE ASHD A/P CABG AFIB DM ANEMIA ACUTE ON CHRONIC KIDNEY DISEASE CIRRHOSIS SECONDARY TO RESTREPO MESENTERIC MASS ORTHOSTATIC HYPOTENSION PLAN DIURETICS MIDODRINE O2 DAILY WTS RATE CONTROL PER CARDIOLOGY STRICT I+OS MONITOR LYTES,RENAL FUNCTION F/U CHEST-RAYS MONITOR BP DR JEAN BAPTISTE Problem List - Problems (1) Abnormal TSH Code(s): R79.89 - OTHER SPECIFIED ABNORMAL FINDINGS OF BLOOD CHEMISTRY (2) Anemia Code(s): D64.9 - ANEMIA, UNSPECIFIED Qualifiers: Anemia type: unspecified type Qualified Code(s): D64.9 - Anemia, unspecified (3) CKD (chronic kidney disease) Code(s): N18.9 - CHRONIC KIDNEY DISEASE, UNSPECIFIED (4) Cirrhosis of liver not due to alcohol Code(s): K74.60 - UNSPECIFIED CIRRHOSIS OF LIVER (5) Hypotension Code(s): I95.9 - HYPOTENSION, UNSPECIFIED Qualifiers: Hypotension type: hypotension due to hypovolemia Qualified Code(s): I95.89 - Other hypotension; E86.1 - Hypovolemia (6) Mesenteric mass Code(s): K63.89 - OTHER SPECIFIED DISEASES OF INTESTINE (7) Zcrwd-cm-romvbce kidney injury Code(s): N17.9 - ACUTE KIDNEY FAILURE, UNSPECIFIED; N18.9 - CHRONIC KIDNEY DISEASE, UNSPECIFIED Qualifiers: Chronic kidney disease stage: stage 2 (mild) (8) CHF (congestive heart failure) Code(s): I50.9 - HEART FAILURE, UNSPECIFIED Qualifiers: Heart failure type: diastolic Heart failure chronicity: chronic Qualified Code(s): I50.32 - Chronic diastolic (congestive) heart failure (9) Diabetes Code(s): E11.9 - TYPE 2 DIABETES MELLITUS WITHOUT COMPLICATIONS Qualifiers: Diabetes mellitus type: type 2 Diabetes mellitus superintendent marine oil [employer] insulin use: without 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 (10) Hx of CABG Code(s): Z95.1 - PRESENCE OF AORTOCORONARY BYPASS GRAFT (11) Hyperlipidemia Code(s): E78.5 - HYPERLIPIDEMIA, UNSPECIFIED Qualifiers: Hyperlipidemia type: mixed hyperlipidemia Qualified Code(s): E78.2 - Mixed hyperlipidemia (12) Hypertension Code(s): I10 - ESSENTIAL (PRIMARY) HYPERTENSION Qualifiers: Hypertension type: essential hypertension Qualified Code(s): I10 - Essential (primary) hypertension (13) Pleural effusion Code(s): J90 - PLEURAL EFFUSION, NOT ELSEWHERE CLASSIFIED (14) Shortness of breath Code(s): R06.02 - SHORTNESS OF BREATH (15) Syncope, near Code(s): R55 - SYNCOPE AND COLLAPSE
[2019-03-21] MEDS: RIVAROXABAN 15 MG TABLET PO SCH (17:13)
[2019-03-21] MEDS: ATORVASTATIN CA 80 MG TABLET (FP) PO SCH (22:17)
[2019-03-21] MEDS: ACETAMINOPHEN 325 MG TABLET (FP) PO PRN (22:17)
[2019-03-22] MEDS: ACETAMINOPHEN 325 MG TABLET (FP) PO PRN ×2 (05:28→11:41)
[2019-03-22] MEDS: INSULIN SLIDING SCALE (NOVOLOG) 1 VIAL SQ SCH ×4 (06:13→21:08)
--- NOTE | 2019-03-22 09:29 | PN ---
Progress Note, Physician History of Present Illness: Resting comfortably w/o dyspnea or orthopnea on O2 NC, afib remains rate- controlled after medication adjustments. Improving orthostasis with dizziness, but nit debilitating on midodrine. Flomax d/hiral. - Current Medication List Current Medications: Active Medications Acetaminophen (Tylenol -) 650 mg PO Q4H PRN PRN Reason: FEVER Last Admin: 03/22/19 05:28 Dose: 650 mg Amiodarone HCl (Cordarone -) 200 mg PO DAILY [facility] Last Admin: 03/21/19 10:18 Dose: 200 mg Atorvastatin Calcium (Lipitor -) 80 mg PO HS [facility] Last Admin: 03/21/19 22:17 Dose: 80 mg Cyanocobalamin (Vitamin B12 -) 1,000 mcg PO DAILY [facility] Last Admin: 03/21/19 10:18 Dose: 1,000 mcg Diltiazem HCl (Cardizem Injection -) 10 mg IVPUSH Q4H PRN PRN Reason: TACHYCARDIA Last Admin: 03/07/19 15:49 Dose: 10 mg Docusate Sodium (Colace -) 100 mg PO BID [facility] Last Admin: 03/21/19 22:17 Dose: 100 mg Folic Acid (Folic Acid -) 1 mg PO DAILY [facility] Last Admin: 03/21/19 10:18 Dose: 1 mg Furosemide (Lasix -) 40 mg PO DAILY [facility] Last Admin: 03/21/19 10:18 Dose: 40 mg Insulin Aspart (Novolog Vial Sliding Scale -) 1 vial SQ ACHS [facility]; Protocol Last Admin: 03/22/19 06:13 Dose: Not Given Metoprolol Succinate (Toprol Xl -) 100 mg PO BID [facility] Last Admin: 03/21/19 22:17 Dose: 100 mg Midodrine (Proamatine -) 5 mg PO TID-MID [facility] Last Admin: 03/21/19 17:13 Dose: 5 mg Mometasone Furoate (Asmanex 220mcg -) 1 puff IH BID [facility] Last Admin: 03/21/19 22:17 Dose: 1 puff Polyethylene Glycol (Miralax (For Daily Use) -) 17 gm PO BID [facility] Last Admin: 03/21/19 22:22 Dose: Not Given Ranolazine (Ranexa -) 500 mg PO BID [facility] Last Admin: 03/21/19 22:17 Dose: 500 mg Rivaroxaban (Xarelto) 15 mg PO DAILY@1800 [facility] Last Admin: 03/21/19 17:13 Dose: 15 mg Vitamin E (Vitamin E -) 400 unit PO DAILY [facility] Last Admin: 03/21/19 10:19 Dose: 400 unit - Objective Vital Signs: Vital Signs Temperature 97.4 F L 03/22/19 06:00 Pulse Rate 89 03/22/19 06:00 Respiratory Rate 17 03/22/19 06:00 Blood Pressure 104/54 L 03/22/19 06:00 O2 Sat by Pulse Oximetry (%) 97 03/21/19 21:00 Constitutional: Yes: No Distress, Calm Neck: Yes: Supple Cardiovascular: Yes: Pulse Irregular Respiratory: Yes: Regular, Diminished, On Nasal O2 Gastrointestinal: Yes: Normal Bowel Sounds, Soft Edema: No Labs: CBC, BMP 03/21/19 06:30 03/21/19 06:30 INR, PTT INR 1.18 (0.83-1.09) H 03/06/19 05:20 Problem List - Problems (1) Abnormal TSH Code(s): R79.89 - OTHER SPECIFIED ABNORMAL FINDINGS OF BLOOD CHEMISTRY (2) Anemia Code(s): D64.9 - ANEMIA, UNSPECIFIED Qualifiers: Anemia type: unspecified type Qualified Code(s): D64.9 - Anemia, unspecified (3) Hypotension Code(s): I95.9 - HYPOTENSION, UNSPECIFIED Qualifiers: Hypotension type: hypotension due to hypovolemia Qualified Code(s): I95.89 - Other hypotension; E86.1 - Hypovolemia (4) Mesenteric mass Code(s): K63.89 - OTHER SPECIFIED DISEASES OF INTESTINE (5) Portal hypertensive gastropathy Code(s): K76.6 - PORTAL HYPERTENSION; K31.89 - OTHER DISEASES OF STOMACH AND DUODENUM (6) Vnyvm-du-hjptcwr kidney injury Code(s): N17.9 - ACUTE KIDNEY FAILURE, UNSPECIFIED; N18.9 - CHRONIC KIDNEY DISEASE, UNSPECIFIED Qualifiers: Chronic kidney disease stage: stage 2 (mild) (7) CHF (congestive heart failure) Code(s): I50.9 - HEART FAILURE, UNSPECIFIED Qualifiers: Heart failure type: diastolic Heart failure chronicity: chronic Qualified Code(s): I50.32 - Chronic diastolic (congestive) heart failure (8) Hx of CABG Code(s): Z95.1 - PRESENCE OF AORTOCORONARY BYPASS GRAFT (9) Hyperlipidemia Code(s): E78.5 - HYPERLIPIDEMIA, UNSPECIFIED Qualifiers: Hyperlipidemia type: pure hypercholesterolemia Qualified Code(s): E78.00 - Pure hypercholesterolemia, unspecified; E78.0 - Pure hypercholesterolemia (10) Hypertension Code(s): I10 - ESSENTIAL (PRIMARY) HYPERTENSION Qualifiers: Hypertension type: essential hypertension Qualified Code(s): I10 - Essential (primary) hypertension (11) Paroxysmal atrial fibrillation with rapid ventricular response Code(s): I48.0 - PAROXYSMAL ATRIAL FIBRILLATION (12) Syncope, near Code(s): R55 - SYNCOPE AND COLLAPSE Assessment/Plan 02/02/2019 Chest CTA: No PE, increased bilateral pleural effusions R>L c/w pulm vascular congestion 02/01/2019 Lexiscan Myoview: No ischemia, LVEF 48% 02/02/2019 Echo: Mild cLVH normal LV and RV size and fxn, mild LAE, mild , tr TR RVSP 23 mmHg, pleural effusion 12/08/2018 Echo: cLVH with normal LVEF 65-70%, mild LAE 4.6 cm, mild CHILO, normal RV size and fxn, mild MR, mild-mod TR RVSP 31 mmHg 1. Recurrent orthostatic hypotension/near syncope 2. Chronic anemia with history of diverticulosis and gastritis 3. Acute on chronic diastolic heart failure and bilateral pleural effusions (R>L ) post R thoracentesis: reactive lymphocytes / negative for malignant cells 4. Persistent AF with improved rate-control 5. CAD s/p CABG, PCI, angina 6. Type 2 DM 7. Hyperlipidemia 8. Acute on CKD 9. HTN 10. RESTREPO with cirrhosis, cholelithiasis 11. 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 Abnormal TSH, ? sick euthyroid vs Amiodarone effects 14. Urinary retention PLAN: 1. Continue home dose Lasix 40 po qd with monitor diuretic response, renal fxn and electrolytes 2. Continue renal-dosed Xarelto 15 mg QD 3. Continue Toprol XL 100 mg BID, hesitant to increase midodrine 10 tid unless orthostasis is debilitating 4. Decrease Ranexa 500 mg QPM, Amiodarone 200 mg QD, Lipitor 80 mg QD and eventually Vascepa 2 mg BID 5. Bronchodilator and O2 as needed 6. Flomax 0.4 qhs d/hiral 7. PT->SNF, d/c planning
[2019-03-22] MEDS: MOMETASONE FUROATE 220 MCG/IH INHALER IH SCH ×2 (10:10→21:08)
[2019-03-22] MEDS: POLYETHYLENE GLYCOL 3350 119 GM BTL PO SCH ×2 (10:11→21:08)
[2019-03-22] MEDS: FOLIC ACID 1 MG TABLET (FP) PO SCH (10:12)
[2019-03-22] MEDS: VITAMIN E 400 INTERNATIONAL-UNITS CAPSULE (FP) PO SCH (10:12)
[2019-03-22] MEDS: RANOLAZINE E.R. 500 MG TABLET (FP) PO SCH ×2 (10:12→21:17)
[2019-03-22] MEDS: CYANOCOBALAMIN 1,000 MCG TABLET (FP) PO SCH (10:12)
[2019-03-22] MEDS: FUROSEMIDE 40 MG TABLET (FP) PO SCH (10:13)
[2019-03-22] MEDS: AMIODARONE HCL 200 MG TABLET (FP) PO SCH (10:13)
[2019-03-22] MEDS: MIDODRINE HCL 5 MG TABLET PO SCH ×3 (10:13→17:18)
[2019-03-22] MEDS: DOCUSATE SODIUM 100 MG CAPSULE (FP) PO SCH ×2 (10:13→21:08)
--- NOTE | 2019-03-22 13:21 | PN ---
Progress Note, Physician History of Present Illness: pulmonary alert,comfortable,-c/o sob,-headache,-dizziness - Current Medication List Current Medications: Active Medications Acetaminophen (Tylenol -) 650 mg PO Q4H PRN PRN Reason: FEVER Last Admin: 03/22/19 11:41 Dose: 650 mg Amiodarone HCl (Cordarone -) 200 mg PO DAILY [facility] Last Admin: 03/22/19 10:13 Dose: 200 mg Atorvastatin Calcium (Lipitor -) 80 mg PO HS [facility] Last Admin: 03/21/19 22:17 Dose: 80 mg Cyanocobalamin (Vitamin B12 -) 1,000 mcg PO DAILY [facility] Last Admin: 03/22/19 10:12 Dose: 1,000 mcg Diltiazem HCl (Cardizem Injection -) 10 mg IVPUSH Q4H PRN PRN Reason: TACHYCARDIA Last Admin: 03/07/19 15:49 Dose: 10 mg Docusate Sodium (Colace -) 100 mg PO BID [facility] Last Admin: 03/22/19 10:13 Dose: 100 mg Folic Acid (Folic Acid -) 1 mg PO DAILY [facility] Last Admin: 03/22/19 10:12 Dose: 1 mg Furosemide (Lasix -) 40 mg PO DAILY [facility] Last Admin: 03/22/19 10:13 Dose: 40 mg Insulin Aspart (Novolog Vial Sliding Scale -) 1 vial SQ ACHS [facility]; Protocol Last Admin: 03/22/19 11:38 Dose: 4 units Metoprolol Succinate (Toprol Xl -) 100 mg PO BID [facility] Last Admin: 03/22/19 10:13 Dose: 100 mg Midodrine (Proamatine -) 5 mg PO TID-MID [facility] Last Admin: 03/22/19 10:13 Dose: 5 mg Mometasone Furoate (Asmanex 220mcg -) 1 puff IH BID [facility] Last Admin: 03/22/19 10:10 Dose: 1 puff Polyethylene Glycol (Miralax (For Daily Use) -) 17 gm PO BID [facility] Last Admin: 03/22/19 10:11 Dose: 17 gm Ranolazine (Ranexa -) 500 mg PO BID [facility] Stop: 03/22/19 22:00 Last Admin: 03/22/19 10:12 Dose: 500 mg Ranolazine (Ranexa -) 500 mg PO DAILY [facility] Rivaroxaban (Xarelto) 15 mg PO DAILY@1800 [facility] Last Admin: 03/21/19 17:13 Dose: 15 mg Vitamin E (Vitamin E -) 400 unit PO DAILY [facility] Last Admin: 03/22/19 10:12 Dose: 400 unit - Objective Vital Signs: Vital Signs Temperature 97.4 F L 03/22/19 06:00 Pulse Rate 87 03/22/19 10:00 Respiratory Rate 17 03/22/19 06:00 Blood Pressure 120/54 L 03/22/19 10:00 O2 Sat by Pulse Oximetry (%) 97 03/21/19 21:00 Constitutional: Yes: Well Nourished, Calm Eyes: Yes: WNL HENT: Yes: WNL Neck: Yes: WNL Cardiovascular: Yes: Pulse Irregular, S1, S2 Respiratory: Yes: CTA Bilaterally Extremities: Yes: WNL Edema: No Labs: CBC, BMP 03/21/19 06:30 03/21/19 06:30 INR, PTT INR 1.18 (0.83-1.09) H 03/06/19 05:20 Problem List - Problems (1) Abnormal TSH Code(s): R79.89 - OTHER SPECIFIED ABNORMAL FINDINGS OF BLOOD CHEMISTRY (2) Anemia Code(s): D64.9 - ANEMIA, UNSPECIFIED Qualifiers: Anemia type: unspecified type Qualified Code(s): D64.9 - Anemia, unspecified (3) CKD (chronic kidney disease) Code(s): N18.9 - CHRONIC KIDNEY DISEASE, UNSPECIFIED (4) Cirrhosis of liver not due to alcohol Code(s): K74.60 - UNSPECIFIED CIRRHOSIS OF LIVER (5) Hypotension Code(s): I95.9 - HYPOTENSION, UNSPECIFIED Qualifiers: Hypotension type: hypotension due to hypovolemia Qualified Code(s): I95.89 - Other hypotension; E86.1 - Hypovolemia (6) Mesenteric mass Code(s): K63.89 - OTHER SPECIFIED DISEASES OF INTESTINE (7) [id number] kidney injury Code(s): N17.9 - ACUTE KIDNEY FAILURE, UNSPECIFIED; N18.9 - CHRONIC KIDNEY DISEASE, UNSPECIFIED Qualifiers: Chronic kidney disease stage: stage 2 (mild) (8) CHF (congestive heart failure) Code(s): I50.9 - HEART FAILURE, UNSPECIFIED Qualifiers: Heart failure type: diastolic Heart failure chronicity: chronic Qualified Code(s): I50.32 - Chronic diastolic (congestive) heart failure (9) Diabetes Code(s): E11.9 - TYPE 2 DIABETES MELLITUS WITHOUT COMPLICATIONS Qualifiers: Diabetes mellitus type: type 2 Diabetes mellitus medical terminologist insulin use: without medical terminologist use (10) Hx of CABG Code(s): Z95.1 - PRESENCE OF AORTOCORONARY BYPASS GRAFT (11) Hyperlipidemia Code(s): E78.5 - HYPERLIPIDEMIA, UNSPECIFIED Qualifiers: Hyperlipidemia type: pure hypercholesterolemia Qualified Code(s): E78.00 - Pure hypercholesterolemia, unspecified; E78.0 - Pure hypercholesterolemia (12) Hypertension Code(s): I10 - ESSENTIAL (PRIMARY) HYPERTENSION Qualifiers: Hypertension type: essential hypertension Qualified Code(s): I10 - Essential (primary) hypertension (13) Pleural effusion Code(s): J90 - PLEURAL EFFUSION, NOT ELSEWHERE CLASSIFIED (14) Shortness of breath Code(s): R06.02 - SHORTNESS OF BREATH (15) Syncope, near Code(s): R55 - SYNCOPE AND COLLAPSE Assessment/Plan IMP DYSPNEA IMPROVED ACUTE ON CHRONIC CHF BILATERAL PLEURAL EFFUSIONS SECONDARY TO CHF NEAR SYNCOPE PULMONARY NODULES STABLE ASHD A/P CABG AFIB DM ANEMIA ACUTE ON CHRONIC KIDNEY DISEASE CIRRHOSIS SECONDARY TO RESTREPO MESENTERIC MASS ORTHOSTATIC HYPOTENSION IMPROVING PLAN DIURETICS MIDODRINE O2 DAILY WTS RATE CONTROL PER CARDIOLOGY STRICT I+OS MONITOR LYTES,RENAL FUNCTION F/U CHEST-RAYS MONITOR BP DR JEAN BAPTISTE Problem List - Problems (1) Abnormal TSH Code(s): R79.89 - OTHER SPECIFIED ABNORMAL FINDINGS OF BLOOD CHEMISTRY (2) Anemia Code(s): D64.9 - ANEMIA, UNSPECIFIED Qualifiers: Anemia type: unspecified type Qualified Code(s): D64.9 - Anemia, unspecified (3) CKD (chronic kidney disease) Code(s): N18.9 - CHRONIC KIDNEY DISEASE, UNSPECIFIED (4) Cirrhosis of liver not due to alcohol Code(s): K74.60 - UNSPECIFIED CIRRHOSIS OF LIVER (5) Hypotension Code(s): I95.9 - HYPOTENSION, UNSPECIFIED Qualifiers: Hypotension type: hypotension due to hypovolemia Qualified Code(s): I95.89 - Other hypotension; E86.1 - Hypovolemia (6) Mesenteric mass Code(s): K63.89 - OTHER SPECIFIED DISEASES OF INTESTINE (7) Zsyrn-gw-kvqeuqj kidney injury Code(s): N17.9 - ACUTE KIDNEY FAILURE, UNSPECIFIED; N18.9 - CHRONIC KIDNEY DISEASE, UNSPECIFIED Qualifiers: Chronic kidney disease stage: stage 2 (mild) (8) CHF (congestive heart failure) Code(s): I50.9 - HEART FAILURE, UNSPECIFIED Qualifiers: Heart failure type: diastolic Heart failure chronicity: chronic Qualified Code(s): I50.32 - Chronic diastolic (congestive) heart failure (9) Diabetes Code(s): E11.9 - TYPE 2 DIABETES MELLITUS WITHOUT COMPLICATIONS Qualifiers: Diabetes mellitus type: type 2 Diabetes mellitus correction insulin use: without correction use (10) Hx of CABG Code(s): Z95.1 - PRESENCE OF AORTOCORONARY BYPASS GRAFT (11) Hyperlipidemia Code(s): E78.5 - HYPERLIPIDEMIA, UNSPECIFIED Qualifiers: Hyperlipidemia type: mixed hyperlipidemia Qualified Code(s): E78.2 - Mixed hyperlipidemia (12) Hypertension Code(s): I10 - ESSENTIAL (PRIMARY) HYPERTENSION Qualifiers: Hypertension type: essential hypertension Qualified Code(s): I10 - Essential (primary) hypertension (13) Pleural effusion Code(s): J90 - PLEURAL EFFUSION, NOT ELSEWHERE CLASSIFIED (14) Shortness of breath Code(s): R06.02 - SHORTNESS OF BREATH (15) Syncope, near Code(s): R55 - SYNCOPE AND COLLAPSE
--- NOTE | 2019-03-22 16:57 | PN ---
Physical Exam: SUBJECTIVE: Patient seen and examined, overall improved, still with weakness, reports dizziness better. OBJECTIVE: Vital Signs Period Temp Pulse Resp BP Sys/Cortes Pulse Ox Last 24 Hr 97.1 F-98.1 F 87-107 17-18 87-120/44-61 97-97 Intake & Output 03/19/19 03/20/19 03/21/19 03/22/19 23:59 23:59 23:59 23:59 Intake Total 540 530 130 Balance 540 530 130 Weight 148 lb 0.4 oz 147 lb 6.4 oz GENERAL: sitting in bed in no acute distress Neck: soft, supple, improved neck vein distension chest: decreased breath sounds at bases, R>L Abdomen:soft, NT, ND extremities: no pedal edema psych: pleasant, co-operative CVS:S1S2 irregularly irregular Laboratory Results - last 24 hr 03/21/19 03/21/19 03/22/19 17:11 22:16 05:24 POC Glucometer 122 138 131 03/22/19 11:32 POC Glucometer 224 Active Medications Generic Name Dose Route Start Last Admin Trade Name Freq PRN Reason Stop Dose Admin Acetaminophen 650 mg 03/03/19 14:52 03/22/19 11:41 Tylenol - PO 650 mg Q4H PRN Administration FEVER Amiodarone HCl 200 mg 03/04/19 10:00 03/22/19 10:13 Cordarone - PO 200 mg DAILY JENNY Administration Atorvastatin Calcium 80 mg 03/03/19 22:00 03/21/19 22:17 Lipitor - PO 80 mg HS JENNY Administration Cyanocobalamin 1,000 mcg 03/04/19 10:00 03/22/19 10:12 Vitamin B12 - PO 1,000 mcg DAILY [facility] Administration Diltiazem HCl 10 mg 03/07/19 15:27 03/07/19 15:49 Cardizem Injection - IVPUSH 10 mg Q4H PRN Administration TACHYCARDIA Docusate Sodium 100 mg 03/04/19 22:00 03/22/19 10:13 Colace - PO 100 mg BID JENNY Administration Folic Acid 1 mg 03/04/19 10:00 03/22/19 10:12 Folic Acid - PO 1 mg DAILY [facility] Administration Furosemide 40 mg 03/16/19 10:00 03/22/19 10:13 Lasix - PO 40 mg DAILY [facility] Administration Insulin Aspart 1 vial 03/03/19 16:30 03/22/19 11:38 Novolog Vial Sliding Scale - SQ 4 units ACHS [facility]NY Administration Protocol Metoprolol Succinate 100 mg 03/06/19 22:00 03/22/19 10:13 Toprol Xl - PO 100 mg BID [facility] Administration Midodrine 5 mg 03/18/19 14:00 03/22/19 15:19 Proamatine - PO 5 mg TID-MID [facility] Administration Mometasone Furoate 1 puff 03/03/19 22:00 03/22/19 10:10 Asmanex 220mcg - IH 1 puff BID [facility] Administration Polyethylene Glycol 17 gm 03/03/19 22:00 03/22/19 10:11 Miralax (For Daily Use) - PO 17 gm BID [facility] Administration Ranolazine 500 mg 03/03/19 22:00 03/22/19 10:12 Ranexa - PO 03/22/19 22:00 500 mg BID [facility]ENNY Administration Ranolazine 500 mg 03/23/19 22:00 Ranexa - PO DAILY [facility] Rivaroxaban 15 mg 03/06/19 18:00 03/21/19 17:13 Xarelto PO 15 mg DAILY@1800 [facility] Administration Vitamin E 400 unit 03/04/19 10:00 03/22/19 10:12 Vitamin E - PO 400 unit DAILY [facility] Administration ASSESSMENT/PLAN: 83 yof with PMHx of CAD, s/p PCI, CABG (2003), DCHF, Afib on coumadin, HTN, NIDDM, Hyperlipidemia, chronic right sided pleural effusions s/p thoracocentesis , diverticulosis, gastritis, chronic anemia, RESTREPO with cirrhosis, and anxiety, admitted with CHF 01/2019, admitted with near syncope, hypotension -Near syncope, suspected hypovolumic hypotension -Severe orthostatic hypotension -Chronic diastolic heart failure -Anemia with constipation/gastritis -Afib with RVr -Chronic bilateral pleural effusions, R>L, s/p right thoracocentesis 1.5 bloody fluid 03/07 -Urinary retention, suspect from poor mobility+/- constipation -CAD s/p PCI, CABG 2013 -HTN -HLD -NIDDM -RESTREPO with cirrhosis -Pulmonary nodules Plan: Midodrine titrated to TID, still pos orthostatics. Monitor for now Ongoing orthostasis, will have renal input Lasix changed to PO, volume/respiratory status stable Sharp d/hiral, Bladder scan q6h and encourage OOB. Urology input noted Imdur/losartan d/hiral. Continue metoprolol/ranexa. Coumadin d/hiral, s/p vitamin K. INR improved. Continue xarelto. Dispo plan for SNF , pending symptom improvement. PT eval noted. Discussed with patient and nursing in detail, all questions answered. Visit type - Emergency Visit Emergency Visit: Yes ED Registration Date: 03/03/19 Care time: The patient presented to the Emergency Department on the above date and was hospitalized for further evaluation of their emergent condition. - New Patient This patient is new to me today: No - Critical Care Critical Care patient: No - Discharge Referral Referred to [facility] Med P.C.: No
[2019-03-22] MEDS: RIVAROXABAN 15 MG TABLET PO SCH (17:11)
[2019-03-22] MEDS: ATORVASTATIN CA 80 MG TABLET (FP) PO SCH (21:07)
[2019-03-23] MEDS: ACETAMINOPHEN 325 MG TABLET (FP) PO PRN (02:06)
[2019-03-23] MEDS: INSULIN SLIDING SCALE (NOVOLOG) 1 VIAL SQ SCH ×4 (06:15→21:36)
[2019-03-23 07:26] LABS: BASO % 0.6 % (0-2.0); EOS % 1.8 % (0-4.5); HEMATOCRIT 29.6 % (32.4-45.2); LYMPH % 9.4 % (8-40); MCH 30.8 pg (25.7-33.7); MCHC 33.7 g/dl (32.0-36.0); MEAN CELL VOLUME 91.4 fl (80-96); MONO % 5.6 % (3.8-10.2); NEUT % 82.6 % (42.8-82.8); PLATELET COUNT 361 K/MM3 (134-434); RBC 3.24 M/mm3 (3.60-5.2); RDW 16.7 % (11.6-15.6); WHITE BLOOD COUNT 6.8 K/mm3 (4.0-10.0)
[2019-03-23 07:53] LABS: ALBUMIN 2.5 g/dl (3.4-5.0); BILIRUBIN,TOTAL 0.6 mg/dL (0.2-1); CALCIUM 9.9 mg/dL (8.5-10.1); CREATININE 1.3 mg/dL (0.55-1.3); MAGNESIUM 2.4 mg/dL (1.8-2.4); PHOSPHOROUS 3.3 mg/dL (2.5-4.9); POTASSIUM 4.2 mmol/L (3.5-5.1); TOT PROT 5.6 g/dl (6.4-8.2)
[2019-03-23] MEDS ORDERED: PT OWN MED DRAWER 7, Y5N ONE ×3 (09:58→17:19)
[2019-03-23] MEDS: FOLIC ACID 1 MG TABLET (FP) PO SCH (10:05)
[2019-03-23] MEDS: AMIODARONE HCL 200 MG TABLET (FP) PO SCH (10:05)
[2019-03-23] MEDS: VITAMIN E 400 INTERNATIONAL-UNITS CAPSULE (FP) PO SCH (10:05)
[2019-03-23] MEDS: POLYETHYLENE GLYCOL 3350 119 GM BTL PO SCH ×2 (10:06→21:35)
[2019-03-23] MEDS: MIDODRINE HCL 5 MG TABLET PO SCH ×3 (10:06→17:21)
[2019-03-23] MEDS: CYANOCOBALAMIN 1,000 MCG TABLET (FP) PO SCH (10:06)
[2019-03-23] MEDS: FUROSEMIDE 40 MG TABLET (FP) PO SCH (10:06)
[2019-03-23] MEDS: MOMETASONE FUROATE 220 MCG/IH INHALER IH SCH ×2 (10:07→21:36)
[2019-03-23] MEDS: DOCUSATE SODIUM 100 MG CAPSULE (FP) PO SCH ×2 (10:07→21:35)
--- NOTE | 2019-03-23 10:28 | PN ---
Progress Note, Physician History of Present Illness: Resting comfortably w/o dyspnea or orthopnea on O2 NC, afib remains rate- controlled after medication adjustments. Reports orthostastic dizziness prevents her from ambulating w/ cane assistance despite midodrine. Flomax d/hiral. - Current Medication List Current Medications: Active Medications Acetaminophen (Tylenol -) 650 mg PO Q4H PRN PRN Reason: FEVER Last Admin: 03/23/19 02:06 Dose: 650 mg Amiodarone HCl (Cordarone -) 200 mg PO DAILY [facility] Last Admin: 03/23/19 10:05 Dose: 200 mg Atorvastatin Calcium (Lipitor -) 80 mg PO HS [facility] Last Admin: 03/22/19 21:07 Dose: 80 mg Cyanocobalamin (Vitamin B12 -) 1,000 mcg PO DAILY [facility] Last Admin: 03/23/19 10:06 Dose: 1,000 mcg Diltiazem HCl (Cardizem Injection -) 10 mg IVPUSH Q4H PRN PRN Reason: TACHYCARDIA Last Admin: 03/07/19 15:49 Dose: 10 mg Docusate Sodium (Colace -) 100 mg PO BID [facility] Last Admin: 03/23/19 10:07 Dose: Not Given Folic Acid (Folic Acid -) 1 mg PO DAILY [facility] Last Admin: 03/23/19 10:05 Dose: 1 mg Furosemide (Lasix -) 40 mg PO DAILY [facility] Last Admin: 03/23/19 10:06 Dose: 40 mg Insulin Aspart (Novolog Vial Sliding Scale -) 1 vial SQ ACHS [facility]; Protocol Last Admin: 03/23/19 06:15 Dose: Not Given Metoprolol Succinate (Toprol Xl -) 100 mg PO BID [facility] Last Admin: 03/23/19 10:06 Dose: 100 mg Midodrine (Proamatine -) 5 mg PO TID-MID [facility] Last Admin: 03/23/19 10:06 Dose: 5 mg Mometasone Furoate (Asmanex 220mcg -) 1 puff IH BID [facility] Last Admin: 03/23/19 10:07 Dose: 1 puff Polyethylene Glycol (Miralax (For Daily Use) -) 17 gm PO BID [facility] Last Admin: 03/23/19 10:06 Dose: Not Given Ranolazine (Ranexa -) 500 mg PO DAILY [facility] Rivaroxaban (Xarelto) 15 mg PO DAILY@1800 [facility] Last Admin: 03/22/19 17:11 Dose: 15 mg Vitamin E (Vitamin E -) 400 unit PO DAILY [facility] Last Admin: 03/23/19 10:05 Dose: 400 unit - Objective Vital Signs: Vital Signs Temperature 97.7 F 03/23/19 10:10 Pulse Rate 99 H 03/23/19 10:10 Respiratory Rate 18 03/23/19 10:10 Blood Pressure 114/53 L 03/23/19 10:10 O2 Sat by Pulse Oximetry (%) 96 03/23/19 10:11 Constitutional: Yes: No Distress, Calm Neck: Yes: Supple Cardiovascular: Yes: Pulse Irregular Respiratory: Yes: Regular, Diminished Gastrointestinal: Yes: Normal Bowel Sounds, Soft Edema: No Labs: CBC, BMP 03/23/19 06:13 03/23/19 06:13 INR, PTT INR 1.18 (0.83-1.09) H 03/06/19 05:20 - ....Imaging EKG: Report Reviewed (Tele: Rate-controlled afib) Problem List - Problems (1) Abnormal TSH Code(s): R79.89 - OTHER SPECIFIED ABNORMAL FINDINGS OF BLOOD CHEMISTRY (2) Anemia Code(s): D64.9 - ANEMIA, UNSPECIFIED Qualifiers: Anemia type: unspecified type Qualified Code(s): D64.9 - Anemia, unspecified (3) Hypotension Code(s): I95.9 - HYPOTENSION, UNSPECIFIED Qualifiers: Hypotension type: orthostatic hypotension Qualified Code(s): I95.1 - Orthostatic hypotension (4) Mesenteric mass Code(s): K63.89 - OTHER SPECIFIED DISEASES OF INTESTINE (5) Portal hypertensive gastropathy Code(s): K76.6 - PORTAL HYPERTENSION; K31.89 - OTHER DISEASES OF STOMACH AND DUODENUM (6) Tqewi-zh-ycijxzn kidney injury Code(s): N17.9 - ACUTE KIDNEY FAILURE, UNSPECIFIED; N18.9 - CHRONIC KIDNEY DISEASE, UNSPECIFIED Qualifiers: Chronic kidney disease stage: stage 2 (mild) (7) CHF (congestive heart failure) Code(s): I50.9 - HEART FAILURE, UNSPECIFIED Qualifiers: Heart failure type: diastolic Heart failure chronicity: chronic Qualified Code(s): I50.32 - Chronic diastolic (congestive) heart failure (8) Hx of CABG Code(s): Z95.1 - PRESENCE OF AORTOCORONARY BYPASS GRAFT (9) Hyperlipidemia Code(s): E78.5 - HYPERLIPIDEMIA, UNSPECIFIED Qualifiers: Hyperlipidemia type: pure hypercholesterolemia Qualified Code(s): E78.00 - Pure hypercholesterolemia, unspecified; E78.0 - Pure hypercholesterolemia (10) Hypertension Code(s): I10 - ESSENTIAL (PRIMARY) HYPERTENSION Qualifiers: Hypertension type: essential hypertension Qualified Code(s): I10 - Essential (primary) hypertension (11) Paroxysmal atrial fibrillation with rapid ventricular response Code(s): I48.0 - PAROXYSMAL ATRIAL FIBRILLATION (12) Syncope, near Code(s): R55 - SYNCOPE AND COLLAPSE Assessment/Plan 02/02/2019 Chest CTA: No PE, increased bilateral pleural effusions R>L c/w pulm vascular congestion 02/01/2019 Lexiscan Myoview: No ischemia, LVEF 48% 02/02/2019 Echo: Mild cLVH normal LV and RV size and fxn, mild LAE, mild , tr TR RVSP 23 mmHg, pleural effusion 12/08/2018 Echo: cLVH with normal LVEF 65-70%, mild LAE 4.6 cm, mild CHILO, normal RV size and fxn, mild MR, mild-mod TR RVSP 31 mmHg 1. Recurrent orthostatic hypotension/near syncope 2. Chronic anemia with history of diverticulosis and gastritis 3. Acute on chronic diastolic heart failure and bilateral pleural effusions (R>L ) post R thoracentesis: reactive lymphocytes / negative for malignant cells 4. Persistent AF with improved rate-control 5. CAD s/p CABG, PCI, angina 6. Type 2 DM 7. Hyperlipidemia 8. Acute on CKD 9. HTN 10. RESTREPO with cirrhosis, cholelithiasis 11. 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 Abnormal TSH, ? sick euthyroid vs Amiodarone effects 14. Urinary retention PLAN: 1. Continue home dose Lasix 40 po qd with monitor diuretic response, renal fxn and electrolytes 2. Continue renal-dosed Xarelto 15 mg QD 3. Continue Toprol XL 100 mg BID, will increase midodrine 10 tid as orthostasis is debilitating 4. Decreased Ranexa 500 mg QPM, Amiodarone 200 mg QD, Lipitor 80 mg QD and eventually Vascepa 2 mg BID 5. Bronchodilator and O2 as needed 6. Flomax 0.4 qhs d/hiral 7. PT->SNF, d/c planning
--- NOTE | 2019-03-23 13:52 | PN ---
Physical Exam: SUBJECTIVE: Patient seen and examined, dizziness when getting up but improved, breathing better, no new complaints otherwise. OBJECTIVE: Vital Signs Period Temp Pulse Resp BP Sys/Cortes Pulse Ox Last 24 Hr 97.6 F-97.9 F 71-115 18-18 83-127/46-72 96-96 Intake & Output 03/20/19 03/21/19 03/22/19 03/23/19 23:59 23:59 23:59 23:59 Intake Total 530 130 240 200 Balance 530 130 240 200 Weight 147 lb 6.4 oz GENERAL: sitting in bed in no acute distress Neck: soft, supple, improved neck vein distension chest: decreased breath sounds at bases, R>L Abdomen:soft, NT, ND extremities: no pedal edema psych: pleasant, co-operative CVS:S1S2 irregularly irregular Laboratory Results - last 24 hr 03/22/19 03/22/19 03/23/19 17:12 21:05 05:47 WBC RBC Hgb Hct MCV MCH MCHC RDW Plt Count MPV Absolute Neuts (auto) Neutrophils % Lymphocytes % Monocytes % Eosinophils % Basophils % Nucleated RBC % Sodium Potassium Chloride Carbon Dioxide Anion Gap BUN Creatinine Est GFR (CKD-EPI)AfAm Est GFR (CKD-EPI)NonAf POC Glucometer 113 146 128 Random Glucose Calcium Phosphorus Magnesium Total Bilirubin AST ALT Alkaline Phosphatase Total Protein Albumin 03/23/19 03/23/19 03/23/19 06:13 06:13 12:04 WBC 6.8 RBC 3.24 L Hgb 10.0 L Hct 29.6 L MCV 91.4 MCH 30.8 MCHC 33.7 RDW 16.7 H Plt Count 361 MPV 9.0 Absolute Neuts (auto) 5.7 Neutrophils % 82.6 Lymphocytes % 9.4 D Monocytes % 5.6 Eosinophils % 1.8 Basophils % 0.6 Nucleated RBC % 0 Sodium 139 Potassium 4.2 Chloride 100 Carbon Dioxide 34 H Anion Gap 5 L BUN 35.0 H Creatinine 1.3 Est GFR (CKD-EPI)AfAm 43.32 Est GFR (CKD-EPI)NonAf 37.38 POC Glucometer 162 Random Glucose 142 H Calcium 9.9 Phosphorus 3.3 Magnesium 2.4 Total Bilirubin 0.6 AST 145 H ALT 75 H Alkaline Phosphatase 97 Total Protein 5.6 L Albumin 2.5 L Active Medications Generic Name Dose Route Start Last Admin Trade Name Freq PRN Reason Stop Dose Admin Acetaminophen 650 mg 03/03/19 14:52 03/23/19 02:06 Tylenol - PO 650 mg Q4H PRN Administration FEVER Amiodarone HCl 200 mg 03/04/19 10:00 03/23/19 10:05 Cordarone - PO 200 mg DAILY [facility]ENNY Administration Atorvastatin Calcium 80 mg 03/03/19 22:00 03/22/19 21:07 Lipitor - PO 80 mg HS JENNY Administration Cyanocobalamin 1,000 mcg 03/04/19 10:00 03/23/19 10:06 Vitamin B12 - PO 1,000 mcg DAILY [facility] Administration Diltiazem HCl 10 mg 03/07/19 15:27 03/07/19 15:49 Cardizem Injection - IVPUSH 10 mg Q4H PRN Administration TACHYCARDIA Docusate Sodium 100 mg 03/04/19 22:00 03/23/19 10:07 Colace - PO Not Given BID JENNY Folic Acid 1 mg 03/04/19 10:00 03/23/19 10:05 Folic Acid - PO 1 mg DAILY [facility] Administration Furosemide 40 mg 03/16/19 10:00 03/23/19 10:06 Lasix - PO 40 mg DAILY [facility]NY Administration Insulin Aspart 1 vial 03/03/19 16:30 03/23/19 12:07 Novolog Vial Sliding Scale - SQ 2 units ACHS JENNY Administration Protocol Metoprolol Succinate 100 mg 03/06/19 22:00 03/23/19 10:06 Toprol Xl - PO 100 mg BID JENNY Administration Midodrine 10 mg 03/23/19 10:55 03/23/19 13:42 Proamatine - PO 10 mg TID-MID JENNY Administration Mometasone Furoate 1 puff 03/03/19 22:00 03/23/19 10:07 Asmanex 220mcg - IH 1 puff BID [facility] Administration Polyethylene Glycol 17 gm 03/03/19 22:00 03/23/19 10:06 Miralax (For Daily Use) - PO Not Given BID [facility] Ranolazine 500 mg 03/23/19 22:00 Ranexa - PO DAILY [facility] Rivaroxaban 15 mg 03/06/19 18:00 03/22/19 17:11 Xarelto PO 15 mg DAILY@1800 [facility] Administration Vitamin E 400 unit 03/04/19 10:00 03/23/19 10:05 Vitamin E - PO 400 unit DAILY [facility]ENNY Administration ASSESSMENT/PLAN: 83 yof with PMHx of CAD, s/p PCI, CABG (2003), DCHF, Afib on coumadin, HTN, NIDDM, Hyperlipidemia, chronic right sided pleural effusions s/p thoracocentesis , diverticulosis, gastritis, chronic anemia, RESTREPO with cirrhosis, and anxiety, admitted with CHF 01/2019, admitted with near syncope, hypotension -Near syncope, suspected hypovolumic hypotension -Severe orthostatic hypotension -Chronic diastolic heart failure -Anemia with constipation/gastritis -Afib with RVr -Chronic bilateral pleural effusions, R>L, s/p right thoracocentesis 1.5 bloody fluid 03/07 -Urinary retention, suspect from poor mobility+/- constipation -CAD s/p PCI, CABG 2013 -HTN -HLD -NIDDM -RESTREPO with cirrhosis -Pulmonary nodules Plan: Ongoing orthostasis, discussed with Dr. Villasenor, midodrine increased. follow up renal input. Lasix changed to PO, volume/respiratory status stable Sharp d/hiral, Bladder scan q6h and encourage OOB. Urology input noted Imdur/losartan d/hiral. Continue metoprolol/ranexa. Coumadin d/hiral, s/p vitamin K. INR improved. Continue xarelto. Dispo plan for SNF , pending symptom improvement. PT eval noted. Discussed with patient and nursing in detail, all questions answered. Visit type - Emergency Visit Emergency Visit: Yes ED Registration Date: 03/03/19 Care time: The patient presented to the Emergency Department on the above date and was hospitalized for further evaluation of their emergent condition. - New Patient This patient is new to me today: No - Critical Care Critical Care patient: No - Discharge Referral Referred to [facility] Med P.C.: No
--- NOTE | 2019-03-23 15:18 | CONSULT ---
Consult - text type - Consultation Consultation Note: Renal consult for orthostatic hypotension This is a 83-year-old woman with a past medical history significant for coronary artery disease requiring CABG, diastolic heart failure, A. fib on anticoagulation, hypertension, diabetes mellitus type 2, hyperlipidemia, pleural fusions who presented with near syncope and hypotension now status post prolonged hospital course complicated by persistent orthostatic hypotension, A. fib and pleural effusions. Patient seen and examined at the bedside. Awake and alert and offers no acute complaints. She denies dizziness or lightheadedness when lying down but does experience dizziness when sitting up. Denies any chest pain or acute shortness of breath at the moment. Denies any abdominal pain, nausea, vomiting, diarrhea. Reports making urine without difficulty. Denies any lower leg swelling. PMhx: as above Allergies: as listed in EMR Family hx: NC Social Hx: No T/A/D ROS: as per HPI, all other pertinent ros negative. Home Medications Medication Instructions Recorded Ranolazine [Ranexa] 500 mg PO BID 11/25/11 Folic Acid - 400 mcg PO ASDIR 02/16/12 Tiotropium [place] [Spiriva] 18 mcg IH DAILY PRN 02/09/15 Albuterol Sulfate [Proair 90 mcg IH BID PRN 03/18/16 Respiclick] Beclomethasone Dipropionate [Qvar] 0.04 mg IH BID 03/18/16 Furosemide [Lasix -] 40 mg PO DAILY 03/18/16 Glucosamine/D3/Boswellia Eda 1 tab PO BID 03/18/16 [Osteo Bi-Flex Caplet] Iron,Carbonyl [Feosol] 65 mg PO DAILY 03/18/16 Mometasone Furoate [Asmanex] 220 mcg IH BID PRN 03/18/16 Amiodarone HCl 200 mg PO BID 02/01/19 Atorvastatin Ca [Lipitor] 80 mg PO HS 02/01/19 Cyanocobalamin (Vitamin B-12) 1,000 mcg PO DAILY 02/01/19 [Vitamin B-12] Icosapent Ethyl [Vascepa] 2 gm PO BID 02/01/19 Losartan Potassium 25 mg PO DAILY 02/01/19 Metoprolol Succinate [Toprol Xl] 50 mg PO BID 02/01/19 Sitagliptin Phos/Metformin HCl 1 each PO BID 02/01/19 [Janumet 50-1,000 mg Tablet] Vitamin E 1 tab PO DAILY 02/01/19 Aspirin 81 mg PO DAILY 03/03/19 Isosorbide Mononitrate [Imdur -] 30 mg PO DAILY 03/03/19 Sitagliptin Phosphate [Januvia] 25 mg PO DAILY 03/03/19 Vital Signs Temperature 97.7 F 03/23/19 10:10 Pulse Rate 83 03/23/19 11:00 Respiratory Rate 18 03/23/19 10:10 Blood Pressure 122/46 L 03/23/19 11:00 O2 Sat by Pulse Oximetry (%) 96 03/23/19 10:11 Intake & Output 03/20/19 03/21/19 03/22/19 03/23/19 23:59 23:59 23:59 23:59 Intake Total 530 130 240 200 Balance 530 130 240 200 Weight 66.86 kg NAD awake and alert neck supple, no JVD RRR, no M/R Dec BS, no rale soft NT/ND, on rebound or guarding trace LE edema, no clubbing or cyanosis. no bladder distension CBC, BMP 03/23/19 06:13 03/23/19 06:13 Current Medications Acetaminophen (Tylenol -) 650 mg PO Q4H PRN PRN Reason: FEVER Last Admin: 03/23/19 02:06 Dose: 650 mg Amiodarone HCl (Cordarone -) 200 mg PO DAILY [facility] Last Admin: 03/23/19 10:05 Dose: 200 mg Atorvastatin Calcium (Lipitor -) 80 mg PO HS [facility] Last Admin: 03/22/19 21:07 Dose: 80 mg Cyanocobalamin (Vitamin B12 -) 1,000 mcg PO DAILY [facility] Last Admin: 03/23/19 10:06 Dose: 1,000 mcg Diltiazem HCl (Cardizem Injection -) 10 mg IVPUSH Q4H PRN PRN Reason: TACHYCARDIA Last Admin: 03/07/19 15:49 Dose: 10 mg Docusate Sodium (Colace -) 100 mg PO BID [facility] Last Admin: 03/23/19 10:07 Dose: Not Given Folic Acid (Folic Acid -) 1 mg PO DAILY [facility] Last Admin: 03/23/19 10:05 Dose: 1 mg Furosemide (Lasix -) 40 mg PO DAILY [facility] Last Admin: 03/23/19 10:06 Dose: 40 mg Insulin Aspart (Novolog Vial Sliding Scale -) 1 vial SQ ACHS [facility]; Protocol Last Admin: 03/23/19 12:07 Dose: 2 units Metoprolol Succinate (Toprol Xl -) 100 mg PO BID [facility] Last Admin: 03/23/19 10:06 Dose: 100 mg Midodrine (Proamatine -) 10 mg PO TID-MID [facility] Last Admin: 03/23/19 13:42 Dose: 10 mg Mometasone Furoate (Asmanex 220mcg -) 1 puff IH BID [facility] Last Admin: 03/23/19 10:07 Dose: 1 puff Polyethylene Glycol (Miralax (For Daily Use) -) 17 gm PO BID [facility] Last Admin: 03/23/19 10:06 Dose: Not Given Ranolazine (Ranexa -) 500 mg PO DAILY [facility] Rivaroxaban (Xarelto) 15 mg PO DAILY@1800 [facility] Last Admin: 03/22/19 17:11 Dose: 15 mg Vitamin E (Vitamin E -) 400 unit PO DAILY [facility] Last Admin: 03/23/19 10:05 Dose: 400 unit 83-year-old woman with a past medical history significant for coronary artery disease requiring CABG, diastolic heart failure, A. fib on anticoagulation, hypertension, diabetes mellitus type 2, hyperlipidemia, pleural fusions who presented with near syncope and hypotension now status post prolonged hospital course complicated by persistent orthostatic hypotension, A. fib and pleural effusions. 1. Persistent orthostatic hypotension 2. Diastolic heart failure 3. A. fib on anticoagulation with RVR 3. Pleural effusions 4. Anemia Orthostatic blood pressure readings today consistent with controlled orthostatic hypotension. Continue midodrine 10 mg 3 times a day, with monitoring for supine hypertension. Unfortunately because of A. fib and heart failure she is not a candidate to receive additional pharmacological management of orthostatic hypotension such as caffeine or fludrocortisone. Can consider lower extremity stockings to prevent venous pooling of blood in the legs when standing or sitting. Continue management of heart failure with Lasix daily as per cardiology. Trend H&H no acute indication for transfusion Rate control with Midrin and amiodarone as per cardiology Thank you, will follow up as needed Jayjay Gaines DO
[2019-03-23] MEDS: RIVAROXABAN 15 MG TABLET PO SCH (17:21)
[2019-03-23] MEDS: RANOLAZINE E.R. 500 MG TABLET (FP) PO SCH (21:35)
[2019-03-23] MEDS: ATORVASTATIN CA 80 MG TABLET (FP) PO SCH (21:35)
[2019-03-24] MEDS: INSULIN SLIDING SCALE (NOVOLOG) 1 VIAL SQ SCH ×4 (06:09→21:55)
[2019-03-24 07:10] LABS: ALBUMIN 2.4 g/dl (3.4-5.0); BILIRUBIN,TOTAL 0.8 mg/dL (0.2-1); BLOOD UREA NITROGEN 29.4 mg/dL (7-18); CALCIUM 9.3 mg/dL (8.5-10.1); CREATININE 1.1 mg/dL (0.55-1.3); POTASSIUM 3.7 mmol/L (3.5-5.1); TOT PROT 5.5 g/dl (6.4-8.2)
[2019-03-24] MEDS ORDERED: PT OWN MED DRAWER 7, Y5N ONE ×4 (10:08→17:17)
[2019-03-24] MEDS: CYANOCOBALAMIN 1,000 MCG TABLET (FP) PO SCH (10:15)
[2019-03-24] MEDS: DOCUSATE SODIUM 100 MG CAPSULE (FP) PO SCH ×2 (10:15→21:55)
[2019-03-24] MEDS: AMIODARONE HCL 200 MG TABLET (FP) PO SCH (10:15)
[2019-03-24] MEDS: FUROSEMIDE 40 MG TABLET (FP) PO SCH (10:15)
[2019-03-24] MEDS: RANOLAZINE E.R. 500 MG TABLET (FP) PO SCH (10:15)
[2019-03-24] MEDS: MOMETASONE FUROATE 220 MCG/IH INHALER IH SCH ×2 (10:16→21:55)
[2019-03-24] MEDS: FOLIC ACID 1 MG TABLET (FP) PO SCH (10:16)
[2019-03-24] MEDS: POLYETHYLENE GLYCOL 3350 119 GM BTL PO SCH ×2 (10:17→21:55)
[2019-03-24] MEDS: MIDODRINE HCL 5 MG TABLET PO SCH ×3 (10:17→17:17)
[2019-03-24] MEDS: VITAMIN E 400 INTERNATIONAL-UNITS CAPSULE (FP) PO SCH (10:17)
--- NOTE | 2019-03-24 10:53 | PN ---
Physical Exam: SUBJECTIVE: Patient seen and examined, still weak, intermittent positional dizziness but improved. Breathing stable, dyspneic with minimal exertion. OBJECTIVE: Vital Signs Period Temp Pulse Resp BP Sys/Cortes Pulse Ox Last 24 Hr 97.4 F-98.0 F 66-115 - 105-135/46-78 98 GENERAL: sitting in bed in no acute distress Neck: soft, supple, improved neck vein distension chest: decreased breath sounds at bases, R>L Abdomen:soft, NT, ND extremities: no pedal edema psych: pleasant, co-operative CVS:S1S2 irregularly irregular Laboratory Results - last 24 hr 03/23/19 03/23/19 03/23/19 12:04 17:20 21:34 Sodium Potassium Chloride Carbon Dioxide Anion Gap BUN Creatinine Est GFR (CKD-EPI)AfAm Est GFR (CKD-EPI)NonAf POC Glucometer 162 131 157 Random Glucose Calcium Total Bilirubin AST ALT Alkaline Phosphatase Total Protein Albumin 03/24/19 03/24/19 05:30 06:00 Sodium 141 Potassium 3.7 Chloride 102 Carbon Dioxide 33 H Anion Gap 5 L BUN 29.4 H Creatinine 1.1 Est GFR (CKD-EPI)AfAm 53.02 Est GFR (CKD-EPI)NonAf 45.74 POC Glucometer 118 Random Glucose 113 H Calcium 9.3 Total Bilirubin 0.8 AST 147 H ALT 78 H Alkaline Phosphatase 97 Total Protein 5.5 L Albumin 2.4 L Active Medications Generic Name Dose Route Start Last Admin Trade Name Freq PRN Reason Stop Dose Admin Acetaminophen 650 mg 03/03/19 14:52 03/23/19 02:06 Tylenol - PO 650 mg Q4H PRN Administration FEVER Amiodarone HCl 200 mg 03/04/19 10:00 03/24/19 10:15 Cordarone - PO 200 mg DAILY [facility]NY Administration Atorvastatin Calcium 80 mg 03/03/19 22:00 03/23/19 21:35 Lipitor - PO 80 mg HS JENNY Administration Cyanocobalamin 1,000 mcg 03/04/19 10:00 03/24/19 10:15 Vitamin B12 - PO 1,000 mcg DAILY [facility] Administration Diltiazem HCl 10 mg 03/07/19 15:27 03/07/19 15:49 Cardizem Injection - IVPUSH 10 mg Q4H PRN Administration TACHYCARDIA Docusate Sodium 100 mg 03/04/19 22:00 03/24/19 10:15 Colace - PO 100 mg BID JENNY Administration Folic Acid 1 mg 03/04/19 10:00 03/24/19 10:16 Folic Acid - PO 1 mg DAILY [facility] Administration Furosemide 40 mg 03/16/19 10:00 03/24/19 10:15 Lasix - PO 40 mg DAILY [facility] Administration Insulin Aspart 1 vial 03/03/19 16:30 03/24/19 06:09 Novolog Vial Sliding Scale - SQ Not Given ACHS [facility] Protocol Metoprolol Succinate 100 mg 03/06/19 22:00 03/24/19 10:15 Toprol Xl - PO 100 mg BID [facility] Administration Midodrine 10 mg 03/23/19 10:55 03/24/19 10:17 Proamatine - PO 10 mg TID-MID [facility] Administration Mometasone Furoate 1 puff 03/03/19 22:00 03/24/19 10:16 Asmanex 220mcg - IH 1 puff BID [facility] Administration Polyethylene Glycol 17 gm 03/03/19 22:00 03/24/19 10:17 Miralax (For Daily Use) - PO Not Given BID [facility] Ranolazine 500 mg 03/23/19 22:00 03/24/19 10:15 Ranexa - PO 500 mg DAILY [facility] Administration Rivaroxaban 15 mg 03/06/19 18:00 03/23/19 17:21 Xarelto PO 15 mg DAILY@1800 [facility] Administration Vitamin E 400 unit 03/04/19 10:00 03/24/19 10:17 Vitamin E - PO 400 unit DAILY [facility] Administration ASSESSMENT/PLAN: 83 yof with PMHx of CAD, s/p PCI, CABG (2003), DCHF, Afib on coumadin, HTN, NIDDM, Hyperlipidemia, chronic right sided pleural effusions s/p thoracocentesis , diverticulosis, gastritis, chronic anemia, RESTREPO with cirrhosis, and anxiety, admitted with CHF 01/2019, admitted with near syncope, hypotension -Near syncope, suspected hypovolumic hypotension -Severe orthostatic hypotension -Chronic diastolic heart failure -Abnormal LFTs, suspect passive hepatic congestion/known h/o cirrhosis. -Anemia with constipation/gastritis -Afib with RVr -Chronic bilateral pleural effusions, R>L, s/p right thoracocentesis 1.5 bloody fluid 03/07 -Urinary retention, suspect from poor mobility+/- constipation -CAD s/p PCI, CABG 2013 -HTN -HLD -NIDDM -RESTREPO with cirrhosis -Pulmonary nodules Plan: Orthostatic symptoms improved, midodrine increased. Renal input noted, compression stockings. Lasix changed to PO, interval CXR to monitor volume status. LFTs noted, ?passive hepatic congestion, repeat CXR, trend for now. Abdominal US results from this admission reviewed. Sharp d/hiral, Bladder scan q6h and encourage OOB. Urology input noted Imdur/losartan d/hiral. Continue metoprolol/ranexa. Coumadin d/hiral, s/p vitamin K. INR improved. Continue xarelto. Dispo plan for SNF in 24-48 hours if continues to improve PT eval noted. Discussed with patient and nursing in detail, all questions answered. Visit type - Emergency Visit Emergency Visit: Yes ED Registration Date: 03/03/19 Care time: The patient presented to the Emergency Department on the above date and was hospitalized for further evaluation of their emergent condition. - New Patient This patient is new to me today: No - Critical Care Critical Care patient: No - Discharge Referral [facility]erred to [facility] Med P.C.: No
--- NOTE | 2019-03-24 11:39 | PN ---
Progress Note, Physician History of Present Illness: PULMONARY ALERT,FEELING BETTER,DIZZINESS IMPROVING,+ SOB WITH MINIMAL EXERTION - Current Medication List Current Medications: Active Medications Acetaminophen (Tylenol -) 650 mg PO Q4H PRN PRN Reason: FEVER Last Admin: 03/23/19 02:06 Dose: 650 mg Amiodarone HCl (Cordarone -) 200 mg PO DAILY [facility] Last Admin: 03/24/19 10:15 Dose: 200 mg Atorvastatin Calcium (Lipitor -) 80 mg PO HS [facility] Last Admin: 03/23/19 21:35 Dose: 80 mg Cyanocobalamin (Vitamin B12 -) 1,000 mcg PO DAILY [facility] Last Admin: 03/24/19 10:15 Dose: 1,000 mcg Diltiazem HCl (Cardizem Injection -) 10 mg IVPUSH Q4H PRN PRN Reason: TACHYCARDIA Last Admin: 03/07/19 15:49 Dose: 10 mg Docusate Sodium (Colace -) 100 mg PO BID [facility] Last Admin: 03/24/19 10:15 Dose: 100 mg Folic Acid (Folic Acid -) 1 mg PO DAILY [facility] Last Admin: 03/24/19 10:16 Dose: 1 mg Furosemide (Lasix -) 40 mg PO DAILY [facility] Last Admin: 03/24/19 10:15 Dose: 40 mg Insulin Aspart (Novolog Vial Sliding Scale -) 1 vial SQ ACHS [facility]; Protocol Last Admin: 03/24/19 06:09 Dose: Not Given Metoprolol Succinate (Toprol Xl -) 100 mg PO BID [facility] Last Admin: 03/24/19 10:15 Dose: 100 mg Midodrine (Proamatine -) 10 mg PO TID-MID [facility] Last Admin: 03/24/19 10:17 Dose: 10 mg Mometasone Furoate (Asmanex 220mcg -) 1 puff IH BID [facility] Last Admin: 03/24/19 10:16 Dose: 1 puff Polyethylene Glycol (Miralax (For Daily Use) -) 17 gm PO BID [facility] Last Admin: 03/24/19 10:17 Dose: Not Given Ranolazine (Ranexa -) 500 mg PO DAILY [facility] Last Admin: 03/24/19 10:15 Dose: 500 mg Rivaroxaban (Xarelto) 15 mg PO DAILY@1800 [facility] Last Admin: 03/23/19 17:21 Dose: 15 mg Vitamin E (Vitamin E -) 400 unit PO DAILY [facility] Last Admin: 03/24/19 10:17 Dose: 400 unit - Objective Vital Signs: Vital Signs Temperature 97.9 F 03/24/19 10:14 Pulse Rate 90 03/24/19 10:14 Respiratory Rate 19 03/24/19 10:14 Blood Pressure 117/66 03/24/19 10:14 O2 Sat by Pulse Oximetry (%) 98 03/23/19 20:41 Constitutional: Yes: Well Nourished, Calm Eyes: Yes: WNL HENT: Yes: WNL Neck: Yes: WNL Cardiovascular: Yes: Pulse Irregular, S1, S2 Respiratory: Yes: Diminished Gastrointestinal: Yes: Normal Bowel Sounds, Soft Extremities: Yes: WNL Edema: No Labs: CBC, BMP 03/23/19 06:13 03/24/19 05:30 INR, PTT INR 1.18 (0.83-1.09) H 03/06/19 05:20 - ....Imaging Chest X-ray: Image Reviewed Problem List - Problems (1) Abnormal TSH Code(s): R79.89 - OTHER SPECIFIED ABNORMAL FINDINGS OF BLOOD CHEMISTRY (2) Anemia Code(s): D64.9 - ANEMIA, UNSPECIFIED Qualifiers: Anemia type: unspecified type Qualified Code(s): D64.9 - Anemia, unspecified (3) CKD (chronic kidney disease) Code(s): N18.9 - CHRONIC KIDNEY DISEASE, UNSPECIFIED (4) Cirrhosis of liver not due to alcohol Code(s): K74.60 - UNSPECIFIED CIRRHOSIS OF LIVER (5) Hypotension Code(s): I95.9 - HYPOTENSION, UNSPECIFIED Qualifiers: Hypotension type: orthostatic hypotension Qualified Code(s): I95.1 - Orthostatic hypotension (6) Mesenteric mass Code(s): K63.89 - OTHER SPECIFIED DISEASES OF INTESTINE (7) [id number] kidney injury Code(s): N17.9 - ACUTE KIDNEY FAILURE, UNSPECIFIED; N18.9 - CHRONIC KIDNEY DISEASE, UNSPECIFIED Qualifiers: Chronic kidney disease stage: stage 2 (mild) (8) CHF (congestive heart failure) Code(s): I50.9 - HEART FAILURE, UNSPECIFIED Qualifiers: Heart failure type: diastolic Heart failure chronicity: chronic Qualified Code(s): I50.32 - Chronic diastolic (congestive) heart failure (9) Diabetes Code(s): E11.9 - TYPE 2 DIABETES MELLITUS WITHOUT COMPLICATIONS Qualifiers: Diabetes mellitus type: type 2 Diabetes mellitus group home insulin use: without group home use (10) Hx of CABG Code(s): Z95.1 - PRESENCE OF AORTOCORONARY BYPASS GRAFT (11) Hyperlipidemia Code(s): E78.5 - HYPERLIPIDEMIA, UNSPECIFIED Qualifiers: Hyperlipidemia type: pure hypercholesterolemia Qualified Code(s): E78.00 - Pure hypercholesterolemia, unspecified; E78.0 - Pure hypercholesterolemia (12) Hypertension Code(s): I10 - ESSENTIAL (PRIMARY) HYPERTENSION Qualifiers: Hypertension type: essential hypertension Qualified Code(s): I10 - Essential (primary) hypertension (13) Pleural effusion Code(s): J90 - PLEURAL EFFUSION, NOT ELSEWHERE CLASSIFIED (14) Shortness of breath Code(s): R06.02 - SHORTNESS OF BREATH (15) Syncope, near Code(s): R55 - SYNCOPE AND COLLAPSE Assessment/Plan IMP DYSPNEA IMPROVED ACUTE ON CHRONIC CHF BILATERAL PLEURAL EFFUSIONS SECONDARY TO CHF NEAR SYNCOPE PULMONARY NODULES STABLE ASHD A/P CABG AFIB DM ANEMIA ACUTE ON CHRONIC KIDNEY DISEASE CIRRHOSIS SECONDARY TO RESTREPO MESENTERIC MASS ORTHOSTATIC HYPOTENSION IMPROVING PLAN DIURETICS MIDODRINE O2 DAILY WTS RATE CONTROL PER CARDIOLOGY STRICT I+OS MONITOR LYTES,RENAL FUNCTION F/U CHEST-RAYS MONITOR BP DR JEAN BAPTISTE Problem List - Problems (1) Abnormal TSH Code(s): R79.89 - OTHER SPECIFIED ABNORMAL FINDINGS OF BLOOD CHEMISTRY (2) Anemia Code(s): D64.9 - ANEMIA, UNSPECIFIED Qualifiers: Anemia type: unspecified type Qualified Code(s): D64.9 - Anemia, unspecified (3) CKD (chronic kidney disease) Code(s): N18.9 - CHRONIC KIDNEY DISEASE, UNSPECIFIED (4) Cirrhosis of liver not due to alcohol Code(s): K74.60 - UNSPECIFIED CIRRHOSIS OF LIVER (5) Hypotension Code(s): I95.9 - HYPOTENSION, UNSPECIFIED Qualifiers: Hypotension type: hypotension due to hypovolemia Qualified Code(s): I95.89 - Other hypotension; E86.1 - Hypovolemia (6) Mesenteric mass Code(s): K63.89 - OTHER SPECIFIED DISEASES OF INTESTINE (7) Letom-qi-lysieot kidney injury Code(s): N17.9 - ACUTE KIDNEY FAILURE, UNSPECIFIED; N18.9 - CHRONIC KIDNEY DISEASE, UNSPECIFIED Qualifiers: Chronic kidney disease stage: stage 2 (mild) (8) CHF (congestive heart failure) Code(s): I50.9 - HEART FAILURE, UNSPECIFIED Qualifiers: Heart failure type: diastolic Heart failure chronicity: chronic Qualified Code(s): I50.32 - Chronic diastolic (congestive) heart failure (9) Diabetes Code(s): E11.9 - TYPE 2 DIABETES MELLITUS WITHOUT COMPLICATIONS Qualifiers: Diabetes mellitus type: type 2 Diabetes mellitus intermediate teacher insulin use: without intermediate teacher use (10) Hx of CABG Code(s): Z95.1 - PRESENCE OF AORTOCORONARY BYPASS GRAFT (11) Hyperlipidemia Code(s): E78.5 - HYPERLIPIDEMIA, UNSPECIFIED Qualifiers: Hyperlipidemia type: mixed hyperlipidemia Qualified Code(s): E78.2 - Mixed hyperlipidemia (12) Hypertension Code(s): I10 - ESSENTIAL (PRIMARY) HYPERTENSION Qualifiers: Hypertension type: essential hypertension Qualified Code(s): I10 - Essential (primary) hypertension (13) Pleural effusion Code(s): J90 - PLEURAL EFFUSION, NOT ELSEWHERE CLASSIFIED (14) Shortness of breath Code(s): R06.02 - SHORTNESS OF BREATH (15) Syncope, near Code(s): R55 - SYNCOPE AND COLLAPSE
--- NOTE | 2019-03-24 14:29 | PN ---
Progress Note, Physician History of Present Illness: Resting comfortably w/o dyspnea or orthopnea on O2 NC, afib remains rate- controlled after medication adjustments. Orthostastic dizziness improved after midodrine uptitration. - Current Medication List Current Medications: Active Medications Acetaminophen (Tylenol -) 650 mg PO Q4H PRN PRN Reason: FEVER Last Admin: 03/23/19 02:06 Dose: 650 mg Amiodarone HCl (Cordarone -) 200 mg PO DAILY [facility] Last Admin: 03/24/19 10:15 Dose: 200 mg Atorvastatin Calcium (Lipitor -) 80 mg PO HS [facility] Last Admin: 03/23/19 21:35 Dose: 80 mg Cyanocobalamin (Vitamin B12 -) 1,000 mcg PO DAILY [facility] Last Admin: 03/24/19 10:15 Dose: 1,000 mcg Diltiazem HCl (Cardizem Injection -) 10 mg IVPUSH Q4H PRN PRN Reason: TACHYCARDIA Last Admin: 03/07/19 15:49 Dose: 10 mg Docusate Sodium (Colace -) 100 mg PO BID [facility] Last Admin: 03/24/19 10:15 Dose: 100 mg Folic Acid (Folic Acid -) 1 mg PO DAILY [facility] Last Admin: 03/24/19 10:16 Dose: 1 mg Furosemide (Lasix -) 40 mg PO DAILY [facility] Last Admin: 03/24/19 10:15 Dose: 40 mg Insulin Aspart (Novolog Vial Sliding Scale -) 1 vial SQ [facility]; Protocol Last Admin: 03/24/19 12:05 Dose: Not Given Metoprolol Succinate (Toprol Xl -) 100 mg PO BID [facility] Last Admin: 03/24/19 10:15 Dose: 100 mg Midodrine (Proamatine -) 10 mg PO TID-MID [facility] Last Admin: 03/24/19 13:46 Dose: 10 mg Mometasone Furoate (Asmanex 220mcg -) 1 puff IH BID [facility] Last Admin: 03/24/19 10:16 Dose: 1 puff Polyethylene Glycol (Miralax (For Daily Use) -) 17 gm PO BID [facility] Last Admin: 03/24/19 10:17 Dose: Not Given Ranolazine (Ranexa -) 500 mg PO DAILY [facility] Last Admin: 03/24/19 10:15 Dose: 500 mg Rivaroxaban (Xarelto) 15 mg PO DAILY@1800 [facility] Last Admin: 03/23/19 17:21 Dose: 15 mg Vitamin E (Vitamin E -) 400 unit PO DAILY [facility] Last Admin: 03/24/19 10:17 Dose: 400 unit - Objective Vital Signs: Vital Signs Temperature 97.9 F 03/24/19 13:44 Pulse Rate 73 03/24/19 13:44 Respiratory Rate 20 03/24/19 13:44 Blood Pressure 107/61 03/24/19 13:44 O2 Sat by Pulse Oximetry (%) 99 03/24/19 09:00 Constitutional: Yes: No Distress, Calm Neck: Yes: Supple Cardiovascular: Yes: Pulse Irregular Respiratory: Yes: Regular, Diminished, On Nasal O2 Gastrointestinal: Yes: Normal Bowel Sounds, Soft Edema: No Labs: CBC, BMP 03/23/19 06:13 03/24/19 05:30 INR, PTT INR 1.18 (0.83-1.09) H 03/06/19 05:20 - ....Imaging EKG: Report Reviewed (Tele: Afib rate-controlled) Problem List - Problems (1) Abnormal TSH Code(s): R79.89 - OTHER SPECIFIED ABNORMAL FINDINGS OF BLOOD CHEMISTRY (2) Anemia Code(s): D64.9 - ANEMIA, UNSPECIFIED Qualifiers: Anemia type: unspecified type Qualified Code(s): D64.9 - Anemia, unspecified (3) Hypotension Code(s): I95.9 - HYPOTENSION, UNSPECIFIED Qualifiers: Hypotension type: orthostatic hypotension Qualified Code(s): I95.1 - Orthostatic hypotension (4) Mesenteric mass Code(s): K63.89 - OTHER SPECIFIED DISEASES OF INTESTINE (5) Portal hypertensive gastropathy Code(s): K76.6 - PORTAL HYPERTENSION; K31.89 - OTHER DISEASES OF STOMACH AND DUODENUM (6) Umiza-hc-zyxsglf kidney injury Code(s): N17.9 - ACUTE KIDNEY FAILURE, UNSPECIFIED; N18.9 - CHRONIC KIDNEY DISEASE, UNSPECIFIED Qualifiers: Chronic kidney disease stage: stage 2 (mild) (7) CHF (congestive heart failure) Code(s): I50.9 - HEART FAILURE, UNSPECIFIED Qualifiers: Heart failure type: diastolic Heart failure chronicity: chronic Qualified Code(s): I50.32 - Chronic diastolic (congestive) heart failure (8) Hx of CABG Code(s): Z95.1 - PRESENCE OF AORTOCORONARY BYPASS GRAFT (9) Hyperlipidemia Code(s): E78.5 - HYPERLIPIDEMIA, UNSPECIFIED Qualifiers: Hyperlipidemia type: pure hypercholesterolemia Qualified Code(s): E78.00 - Pure hypercholesterolemia, unspecified; E78.0 - Pure hypercholesterolemia (10) Hypertension Code(s): I10 - ESSENTIAL (PRIMARY) HYPERTENSION Qualifiers: Hypertension type: essential hypertension Qualified Code(s): I10 - Essential (primary) hypertension (11) Paroxysmal atrial fibrillation with rapid ventricular response Code(s): I48.0 - PAROXYSMAL ATRIAL FIBRILLATION (12) Syncope, near Code(s): R55 - SYNCOPE AND COLLAPSE Assessment/Plan 02/02/2019 Chest CTA: No PE, increased bilateral pleural effusions R>L c/w pulm vascular congestion 02/01/2019 Lexiscan Myoview: No ischemia, LVEF 48% 02/02/2019 Echo: Mild cLVH normal LV and RV size and fxn, mild LAE, mild , tr TR RVSP 23 mmHg, pleural effusion 12/08/2018 Echo: cLVH with normal LVEF 65-70%, mild LAE 4.6 cm, mild CHILO, normal RV size and fxn, mild MR, mild-mod TR RVSP 31 mmHg 1. Recurrent orthostatic hypotension/near syncope improving 2. Chronic anemia with history of diverticulosis and gastritis 3. Acute on chronic diastolic heart failure and bilateral pleural effusions (R>L ) post R thoracentesis: reactive lymphocytes / negative for malignant cells 4. Persistent AF with improved rate-control 5. CAD s/p CABG, PCI, angina 6. Type 2 DM 7. Hyperlipidemia 8. Acute on CKD 9. HTN 10. RESTREPO with cirrhosis, cholelithiasis 11. 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 Abnormal TSH, ? sick euthyroid vs Amiodarone effects 14. Urinary retention PLAN: 1. Continue home dose Lasix 40 po qd with monitor diuretic response, renal fxn and electrolytes 2. Continue renal-dosed Xarelto 15 mg QD 3. Continue Toprol XL 100 mg BID, increased midodrine 10 tid as orthostasis is debilitating, support stockings 4. Decreased Ranexa 500 mg QPM, Amiodarone 200 mg QD, Lipitor 80 mg QD and eventually Vascepa 2 mg BID 5. Bronchodilator and O2 as needed 6. Flomax 0.4 qhs d/hiral 7. PT->SNF, d/c planning
[2019-03-24] MEDS: RIVAROXABAN 15 MG TABLET PO SCH (17:13)
[2019-03-24] MEDS: ATORVASTATIN CA 80 MG TABLET (FP) PO SCH (21:55)
[2019-03-25] MEDS: INSULIN SLIDING SCALE (NOVOLOG) 1 VIAL SQ SCH ×4 (06:14→21:20)
[2019-03-25] MEDS: ACETAMINOPHEN 325 MG TABLET (FP) PO PRN ×2 (06:23→21:20)
[2019-03-25 07:55] LABS: ALBUMIN 2.8 g/dl (3.4-5.0); BILIRUBIN,TOTAL 0.8 mg/dL (0.2-1); BLOOD UREA NITROGEN 30.3 mg/dL (7-18); CALCIUM 9.8 mg/dL (8.5-10.1); CREATININE 1.1 mg/dL (0.55-1.3); POTASSIUM 3.7 mmol/L (3.5-5.1); TOT PROT 6.4 g/dl (6.4-8.2)
[2019-03-25] MEDS ORDERED: PT OWN MED DRAWER 7, Y5N ONE ×4 (09:02→17:34)
[2019-03-25] MEDS: CYANOCOBALAMIN 1,000 MCG TABLET (FP) PO SCH (09:07)
[2019-03-25] MEDS: DOCUSATE SODIUM 100 MG CAPSULE (FP) PO SCH ×2 (09:08→21:20)
[2019-03-25] MEDS: VITAMIN E 400 INTERNATIONAL-UNITS CAPSULE (FP) PO SCH (09:08)
[2019-03-25] MEDS: FUROSEMIDE 40 MG TABLET (FP) PO SCH (09:08)
[2019-03-25] MEDS: FOLIC ACID 1 MG TABLET (FP) PO SCH (09:08)
[2019-03-25] MEDS: RANOLAZINE E.R. 500 MG TABLET (FP) PO SCH (09:08)
[2019-03-25] MEDS: AMIODARONE HCL 200 MG TABLET (FP) PO SCH (09:08)
[2019-03-25] MEDS: MOMETASONE FUROATE 220 MCG/IH INHALER IH SCH ×2 (09:09→21:18)
[2019-03-25] MEDS: MIDODRINE HCL 5 MG TABLET PO SCH ×3 (09:09→17:34)
[2019-03-25] MEDS: POLYETHYLENE GLYCOL 3350 119 GM BTL PO SCH ×2 (09:09→21:20)
--- NOTE | 2019-03-25 12:34 | PN ---
Progress Note (short form) - Note Progress Note: Resting in NAD. No CP or SOB. Afebrile. No acute events overnight. Intake & Output 03/22/19 03/23/19 03/24/19 03/25/19 23:59 23:59 23:59 23:59 Intake Total 240 440 600 Balance 240 440 600 Last Vital Signs Temp Pulse Resp BP Pulse Ox 97.2 F L 82 18 108/58 L 100 03/25/19 09:16 03/25/19 09:16 03/25/19 09:16 03/25/19 09:16 03/25/19 09:16 Active Medications Acetaminophen (Tylenol -) 650 mg PO Q4H PRN PRN Reason: FEVER Last Admin: 03/25/19 06:23 Dose: 650 mg Amiodarone HCl (Cordarone -) 200 mg PO DAILY [facility] Last Admin: 03/25/19 09:08 Dose: 200 mg Atorvastatin Calcium (Lipitor -) 80 mg PO HS [facility] Last Admin: 03/24/19 21:55 Dose: 80 mg Cyanocobalamin (Vitamin B12 -) 1,000 mcg PO DAILY [facility] Last Admin: 03/25/19 09:07 Dose: 1,000 mcg Diltiazem HCl (Cardizem Injection -) 10 mg IVPUSH Q4H PRN PRN Reason: TACHYCARDIA Last Admin: 03/07/19 15:49 Dose: 10 mg Docusate Sodium (Colace -) 100 mg PO BID [facility] Last Admin: 03/25/19 09:08 Dose: Not Given Folic Acid (Folic Acid -) 1 mg PO DAILY [facility] Last Admin: 03/25/19 09:08 Dose: 1 mg Furosemide (Lasix -) 40 mg PO DAILY [facility] Last Admin: 03/25/19 09:08 Dose: 40 mg Insulin Aspart (Novolog Vial Sliding Scale -) 1 vial SQ ACHS [facility]; Protocol Last Admin: 03/25/19 12:08 Dose: 2 units Metoprolol Succinate (Toprol Xl -) 100 mg PO BID [facility] Last Admin: 03/25/19 09:08 Dose: 100 mg Midodrine (Proamatine -) 10 mg PO TID-MID [facility] Last Admin: 03/25/19 09:09 Dose: 10 mg Mometasone Furoate (Asmanex 220mcg -) 1 puff IH BID [facility] Last Admin: 03/25/19 09:09 Dose: 1 puff Polyethylene Glycol (Miralax (For Daily Use) -) 17 gm PO BID [facility] Last Admin: 03/25/19 09:09 Dose: Not Given Ranolazine (Ranexa -) 500 mg PO DAILY [facility] Last Admin: 03/25/19 09:08 Dose: 500 mg Rivaroxaban (Xarelto) 15 mg PO DAILY@1800 [facility] Last Admin: 03/24/19 17:13 Dose: 15 mg Vitamin E (Vitamin E -) 400 unit PO DAILY [facility] Last Admin: 03/25/19 09:08 Dose: 400 unit Gen: NAD at rest Heart: RRR Lung: decreased breath sounds at the bases Abd: soft, nontender Ext: no edema Laboratory Results - last 24 hr 03/24/19 03/24/19 03/25/19 17:12 21:53 05:52 Sodium 141 Potassium 3.7 Chloride 101 Carbon Dioxide 33 H Anion Gap 8 BUN 30.3 H Creatinine 1.1 Est GFR (CKD-EPI)AfAm 53.02 Est GFR (CKD-EPI)NonAf 45.74 POC Glucometer 151 118 Random Glucose 112 H Calcium 9.8 Total Bilirubin 0.8 AST 181 H ALT 97 H Alkaline Phosphatase 115 Total Protein 6.4 Albumin 2.8 L 03/25/19 06:10 Sodium Potassium Chloride Carbon Dioxide Anion Gap BUN Creatinine Est GFR (CKD-EPI)AfAm Est GFR (CKD-EPI)NonAf POC Glucometer 122 Random Glucose Calcium Total Bilirubin AST ALT Alkaline Phosphatase Total Protein Albumin A/P Acute on Chronic Diastolic Heart Failure Paroxysmal Atrial Fibrillation Pleural Effusions s/p R thoracentesis: reactive lymphocytes / negative for malignant cells CAD s/p CABG COPD Acute on Chronic Renal Failure HTN DM Hyperlipidemia RESTREPO/Liver Cirrhosis - Lasix - inhaled bronchodilators - O2 to keep Spo2 >90% - rate control - Asmanex - continue anticoagulation - No Pulmonary contraindication for DC planning Dr Resendiz
--- NOTE | 2019-03-25 15:04 | PN ---
Physical Exam: SUBJECTIVE: Patient seen and examined, dizziness improved. Overall breathing unchanged, no nausea, vomiting, abdominal pain or concerns. OBJECTIVE: Vital Signs Period Temp Pulse Resp BP Sys/Cortes Pulse Ox Last 24 Hr 97.2 F-98.7 F 77-89 18-20 108-134/57-84 100-100 Intake & Output 03/22/19 03/23/19 03/24/19 03/25/19 23:59 23:59 23:59 23:59 Intake Total 240 440 600 200 Balance 240 440 600 200 GENERAL: sitting in bed in no acute distress Neck: soft, supple, improved neck vein distension chest: decreased breath sounds at bases, R>L Abdomen:soft, NT, ND extremities: no pedal edema psych: pleasant, co-operative CVS:S1S2 irregularly irregular Laboratory Results - last 24 hr 03/24/19 03/24/19 03/25/19 17:12 21:53 05:52 Sodium 141 Potassium 3.7 Chloride 101 Carbon Dioxide 33 H Anion Gap 8 BUN 30.3 H Creatinine 1.1 Est GFR (CKD-EPI)AfAm 53.02 Est GFR (CKD-EPI)NonAf 45.74 POC Glucometer 151 118 Random Glucose 112 H Calcium 9.8 Total Bilirubin 0.8 AST 181 H ALT 97 H Alkaline Phosphatase 115 Total Protein 6.4 Albumin 2.8 L 03/25/19 03/25/19 06:10 12:06 Sodium Potassium Chloride Carbon Dioxide Anion Gap BUN Creatinine Est GFR (CKD-EPI)AfAm Est GFR (CKD-EPI)NonAf POC Glucometer 122 155 Random Glucose Calcium Total Bilirubin AST ALT Alkaline Phosphatase Total Protein Albumin Active Medications Home Medications Medication Instructions Recorded Ranolazine [Ranexa] 500 mg PO BID 11/25/11 Folic Acid - 400 mcg PO ASDIR 02/16/12 Tiotropium [place] [Spiriva] 18 mcg IH DAILY PRN 02/09/15 Albuterol Sulfate [Proair 90 mcg IH BID PRN 03/18/16 Respiclick] Beclomethasone Dipropionate [Qvar] 0.04 mg IH BID 03/18/16 Furosemide [Lasix -] 40 mg PO DAILY 03/18/16 Glucosamine/D3/Boswellia Eda 1 tab PO BID 03/18/16 [Osteo Bi-Flex Caplet] Iron,Carbonyl [Feosol] 65 mg PO DAILY 03/18/16 Mometasone Furoate [Asmanex] 220 mcg IH BID PRN 03/18/16 Amiodarone HCl 200 mg PO BID 02/01/19 Atorvastatin Ca [Lipitor] 80 mg PO HS 02/01/19 Cyanocobalamin (Vitamin B-12) 1,000 mcg PO DAILY 02/01/19 [Vitamin B-12] Icosapent Ethyl [Vascepa] 2 gm PO BID 02/01/19 Losartan Potassium 25 mg PO DAILY 02/01/19 Metoprolol Succinate [Toprol Xl] 50 mg PO BID 02/01/19 Sitagliptin Phos/Metformin HCl 1 each PO BID 02/01/19 [Janumet 50-1,000 mg Tablet] Vitamin E 1 tab PO DAILY 02/01/19 Aspirin 81 mg PO DAILY 03/03/19 Isosorbide Mononitrate [Imdur -] 30 mg PO DAILY 03/03/19 Sitagliptin Phosphate [Januvia] 25 mg PO DAILY 03/03/19 Generic Name Dose Route Start Last Admin [facility] PRN Reason Stop Dose Admin Acetaminophen 650 mg 03/03/19 14:52 03/25/19 06:23 Tylenol - PO 650 mg Q4H PRN Administration FEVER Amiodarone HCl 200 mg 03/04/19 10:00 03/25/19 09:08 Cordarone - PO 200 mg DAILY JENNY Administration Atorvastatin Calcium 80 mg 03/03/19 22:00 03/24/19 21:55 Lipitor - PO 80 mg HS JENNY Administration Cyanocobalamin 1,000 mcg 03/04/19 10:00 03/25/19 09:07 Vitamin B12 - PO 1,000 mcg DAILY [facility] Administration Diltiazem HCl 10 mg 03/07/19 15:27 03/07/19 15:49 Cardizem Injection - IVPUSH 10 mg Q4H PRN Administration TACHYCARDIA Docusate Sodium 100 mg 03/04/19 22:00 03/25/19 09:08 Colace - PO Not Given BID JENNY Folic Acid 1 mg 03/04/19 10:00 03/25/19 09:08 Folic Acid - PO 1 mg DAILY [facility] Administration Furosemide 40 mg 03/16/19 10:00 03/25/19 09:08 Lasix - PO 40 mg DAILY [facility] Administration Insulin Aspart 1 vial 03/03/19 16:30 03/25/19 12:08 Novolog Vial Sliding Scale - SQ 2 units ACHS JENNY Administration Protocol Metoprolol Succinate 100 mg 03/06/19 22:00 03/25/19 09:08 Toprol Xl - PO 100 mg BID [facility]ENNY Administration Midodrine 10 mg 03/23/19 10:55 03/25/19 13:57 Proamatine - PO 10 mg TID-MID JENNY Administration Mometasone Furoate 1 puff 03/03/19 22:00 03/25/19 09:09 Asmanex 220mcg - IH 1 puff BID [facility] Administration Polyethylene Glycol 17 gm 03/03/19 22:00 03/25/19 09:09 Miralax (For Daily Use) - PO Not Given BID [facility]EN[facility] Ranolazine 500 mg 03/23/19 22:00 03/25/19 09:08 Ranexa - PO 500 mg DAILY [facility] Administration Rivaroxaban 15 mg 03/06/19 18:00 03/24/19 17:13 Xarelto PO 15 mg DAILY@1800 [facility] Administration Vitamin E 400 unit 03/04/19 10:00 03/25/19 09:08 Vitamin E - PO 400 unit DAILY [facility] Administration ASSESSMENT/PLAN: 83 yof with PMHx of CAD, s/p PCI, CABG (2003), DCHF, Afib on coumadin, HTN, NIDDM, Hyperlipidemia, chronic right sided pleural effusions s/p thoracocentesis , diverticulosis, gastritis, chronic anemia, RESTREPO with cirrhosis, and anxiety, admitted with CHF 01/2019, admitted with near syncope, hypotension -Near syncope, suspected hypovolumic hypotension -Severe orthostatic hypotension -Chronic diastolic heart failure -Abnormal LFTs, suspect passive hepatic congestion/known h/o cirrhosis. -Anemia with constipation/gastritis -Afib with RVr -Chronic bilateral pleural effusions, R>L, s/p right thoracocentesis 1.5 bloody fluid 03/07 -Urinary retention, suspect from poor mobility+/- constipation -CAD s/p PCI, CABG 2013 -HTN -HLD -NIDDM -RESTREPO with cirrhosis -Pulmonary nodules Plan: Orthostatic symptoms improved, midodrine increased. Renal input noted, compression stockings. Lasix changed to PO, interval CXR to monitor volume status. LFTs noted, ?passive hepatic congestion, repeat CXR, trend for now. Abdominal US results from this admission reviewed. repeat given uptrending. Hold statin for now. Sharp d/hiral, Bladder scan q6h and encourage OOB. Urology input noted Imdur/losartan d/hiral. Continue metoprolol/ranexa. Coumadin d/hiral, s/p vitamin K. INR improved. Continue xarelto. Dispo plan for SNF in 24-48 hours if continues to improve PT eval noted. Discussed with patient and nursing in detail, all questions answered. Visit type - Emergency Visit Emergency Visit: Yes ED Registration Date: 03/03/19 Care time: The patient presented to the Emergency Department on the above date and was hospitalized for further evaluation of their emergent condition. - New Patient This patient is new to me today: No - Critical Care Critical Care patient: No - Discharge Referral Referred to [facility] Med P.C.: No
[2019-03-25] MEDS: RIVAROXABAN 15 MG TABLET PO SCH (17:34)
[2019-03-25] MEDS ORDERED: guaiFENesin 200 MG/10 ML 10 ML UNIT-DOSE CUPS PO ONE (18:58)
[2019-03-25] MEDS: [UNRECOGNIZED DRUG - OTHER] PO SCH (21:20)
[2019-03-25] MEDS: GLUCOSAMINE PO SCH (21:20)
[2019-03-25] MEDS: D3 PO SCH (21:20)
[2019-03-25] MEDS: BOSWELLIA SERRA PO SCH (21:20)
[2019-03-26] MEDS: INSULIN SLIDING SCALE (NOVOLOG) 1 VIAL SQ SCH ×4 (06:40→21:18)
[2019-03-26 07:46] LABS: BASO % 0.5 % (0-2.0); EOS % 1.5 % (0-4.5); HEMATOCRIT 30.1 % (32.4-45.2); HEMOGLOBIN 10.2 GM/dL (10.7-15.3); MCH 30.6 pg (25.7-33.7); MCHC 33.8 g/dl (32.0-36.0); MEAN CELL VOLUME 90.5 fl (80-96); MEAN PLT VOLUME 8.9 fl (7.5-11.1); MONO % 6.1 % (3.8-10.2); NEUT % 84.9 % (42.8-82.8); PLATELET COUNT 325 K/MM3 (134-434); RBC 3.33 M/mm3 (3.60-5.2); RDW 17.1 % (11.6-15.6); WHITE BLOOD COUNT 6.6 K/mm3 (4.0-10.0)
[2019-03-26 08:01] LABS: INR 1.96 (0.83-1.09); PROTHROMBIN TIME (PATIENT) 23.3 SEC (9.7-13.0)
[2019-03-26 08:29] LABS: ALBUMIN 2.5 g/dl (3.4-5.0); BILIRUBIN,DIRECT 0.3 mg/dL (0.0-0.2); BILIRUBIN,TOTAL 0.7 mg/dL (0.2-1); BLOOD UREA NITROGEN 28.9 mg/dL (7-18); CALCIUM 9.7 mg/dL (8.5-10.1); CREATININE 1.1 mg/dL (0.55-1.3); MAGNESIUM 2.4 mg/dL (1.8-2.4); PHOSPHOROUS 3.4 mg/dL (2.5-4.9); POTASSIUM 3.7 mmol/L (3.5-5.1)
[2019-03-26] MEDS: MOMETASONE FUROATE 220 MCG/IH INHALER IH SCH ×2 (10:30→21:17)
[2019-03-26] MEDS: VITAMIN E 400 INTERNATIONAL-UNITS CAPSULE (FP) PO SCH (10:31)
[2019-03-26] MEDS: DOCUSATE SODIUM 100 MG CAPSULE (FP) PO SCH ×2 (10:31→21:17)
[2019-03-26] MEDS: FOLIC ACID 1 MG TABLET (FP) PO SCH (10:32)
[2019-03-26] MEDS: RANOLAZINE E.R. 500 MG TABLET (FP) PO SCH (10:32)
[2019-03-26] MEDS: AMIODARONE HCL 200 MG TABLET (FP) PO SCH (10:32)
[2019-03-26] MEDS: FUROSEMIDE 40 MG TABLET (FP) PO SCH (10:32)
[2019-03-26] MEDS: POLYETHYLENE GLYCOL 3350 119 GM BTL PO SCH ×2 (10:32→21:17)
[2019-03-26] MEDS: CYANOCOBALAMIN 1,000 MCG TABLET (FP) PO SCH (10:32)
[2019-03-26] MEDS: [UNRECOGNIZED DRUG - OTHER] PO SCH ×2 (10:33→21:17)
[2019-03-26] MEDS: MIDODRINE HCL 5 MG TABLET PO SCH ×3 (10:33→17:08)
[2019-03-26] MEDS: GLUCOSAMINE PO SCH ×2 (10:33→21:17)
[2019-03-26] MEDS: D3 PO SCH ×2 (10:33→21:17)
[2019-03-26] MEDS: BOSWELLIA SERRA PO SCH ×2 (10:33→21:17)
--- NOTE | 2019-03-26 13:54 | PN ---
Progress Note (short form) - Note Progress Note: Resting in NAD. No CP or SOB. Afebrile. US noted. Pleural effusions / no acute Cholecystitis Intake & Output 03/23/19 03/24/19 03/25/19 03/26/19 23:59 23:59 23:59 23:59 Intake Total 440 600 320 480 Output Total 400 Balance 440 600 320 80 Last Vital Signs Temp Pulse Resp BP Pulse Ox 98.0 F 107 H 20 127/82 100 03/26/19 06:00 03/26/19 08:55 03/26/19 06:00 03/26/19 08:55 03/26/19 08:50 Active Medications Acetaminophen (Tylenol -) 650 mg PO Q4H PRN PRN Reason: FEVER Last Admin: 03/25/19 21:20 Dose: 650 mg Amiodarone HCl (Cordarone -) 200 mg PO DAILY [facility] Last Admin: 03/26/19 10:32 Dose: 200 mg Atorvastatin Calcium (Lipitor -) 80 mg PO HS [facility] Last Admin: 03/24/19 21:55 Dose: 80 mg Cyanocobalamin (Vitamin B12 -) 1,000 mcg PO DAILY [facility] Last Admin: 03/26/19 10:32 Dose: 1,000 mcg Diltiazem HCl (Cardizem Injection -) 10 mg IVPUSH Q4H PRN PRN Reason: TACHYCARDIA Last Admin: 03/07/19 15:49 Dose: 10 mg Docusate Sodium (Colace -) 100 mg PO BID [facility] Last Admin: 03/26/19 10:31 Dose: Not Given Folic Acid (Folic Acid -) 1 mg PO DAILY [facility] Last Admin: 03/26/19 10:32 Dose: 1 mg Furosemide (Lasix -) 40 mg PO DAILY [facility] Last Admin: 03/26/19 10:32 Dose: 40 mg Insulin Aspart (Novolog Vial Sliding Scale -) 1 vial SQ ACHS [facility]; Protocol Last Admin: 03/26/19 11:47 Dose: Not Given Metoprolol Succinate (Toprol Xl -) 100 mg PO BID [facility] Last Admin: 03/26/19 10:32 Dose: 100 mg Midodrine (Proamatine -) 10 mg PO TID-MID [facility] Last Admin: 03/26/19 10:33 Dose: 10 mg Mometasone Furoate (Asmanex 220mcg -) 1 puff IH BID [facility] Last Admin: 03/26/19 10:30 Dose: 1 puff (Glucosamine/D3/Boswellia Eda [ Osteo Bi-Flex ] Patient's Own Medication (Non - Formulary) 1 tab PO BID [facility] Last Admin: 03/26/19 10:33 Dose: 1 tab Polyethylene Glycol (Miralax (For Daily Use) -) 17 gm PO BID [facility] Last Admin: 03/26/19 10:32 Dose: Not Given Ranolazine (Ranexa -) 500 mg PO DAILY [facility] Last Admin: 03/26/19 10:32 Dose: 500 mg Rivaroxaban (Xarelto) 15 mg PO DAILY@1800 [facility] Last Admin: 03/25/19 17:34 Dose: 15 mg Vitamin E (Vitamin E -) 400 unit PO DAILY [facility] Last Admin: 03/26/19 10:31 Dose: 400 unit Gen: NAD at rest Heart: RRR Lung: decreased breath sounds at the bases Abd: soft, nontender Ext: no edema Laboratory Results - last 24 hr 03/25/19 03/25/19 03/26/19 17:30 21:14 06:19 WBC RBC Hgb Hct MCV MCH MCHC RDW Plt Count MPV Absolute Neuts (auto) Neutrophils % Lymphocytes % Monocytes % Eosinophils % Basophils % Nucleated RBC % PT with INR INR Sodium Potassium Chloride Carbon Dioxide Anion Gap BUN Creatinine Est GFR (CKD-EPI)AfAm Est GFR (CKD-EPI)NonAf POC Glucometer 129 163 113 Random Glucose Calcium Phosphorus Magnesium Total Bilirubin Direct Bilirubin AST ALT Alkaline Phosphatase Total Protein Albumin 03/26/19 03/26/19 03/26/19 06:37 06:37 06:37 WBC 6.6 RBC 3.33 L Hgb 10.2 L Hct 30.1 L MCV 90.5 MCH 30.6 MCHC 33.8 RDW 17.1 H Plt Count 325 MPV 8.9 Absolute Neuts (auto) 5.6 Neutrophils % 84.9 H Lymphocytes % 7.0 L D Monocytes % 6.1 Eosinophils % 1.5 Basophils % 0.5 Nucleated RBC % 0 PT with INR 23.30 H INR 1.96 H Sodium 142 Potassium 3.7 Chloride 100 Carbon Dioxide 35 H Anion Gap 7 L BUN 28.9 H Creatinine 1.1 Est GFR (CKD-EPI)AfAm 53.02 Est GFR (CKD-EPI)NonAf 45.74 POC Glucometer Random Glucose 100 Calcium 9.7 Phosphorus 3.4 Magnesium 2.4 Total Bilirubin Direct Bilirubin AST ALT Alkaline Phosphatase Total Protein Albumin 03/26/19 03/26/19 06:37 11:45 WBC RBC Hgb Hct MCV MCH MCHC RDW Plt Count MPV Absolute Neuts (auto) Neutrophils % Lymphocytes % Monocytes % Eosinophils % Basophils % Nucleated RBC % PT with INR INR Sodium Potassium Chloride Carbon Dioxide Anion Gap BUN Creatinine Est GFR (CKD-EPI)AfAm Est GFR (CKD-EPI)NonAf POC Glucometer 159 Random Glucose Calcium Phosphorus Magnesium Total Bilirubin 0.7 Direct Bilirubin 0.3 H AST 180 H ALT 100 H Alkaline Phosphatase 107 Total Protein 6.0 L Albumin 2.5 L A/P Acute on Chronic Diastolic Heart Failure Paroxysmal Atrial Fibrillation Pleural Effusions s/p R thoracentesis: reactive lymphocytes / negative for malignant cells CAD s/p CABG COPD Acute on Chronic Renal Failure HTN DM Hyperlipidemia RESTREPO/Liver Cirrhosis - Lasix - inhaled bronchodilators - O2 to keep Spo2 >90% - rate control - Asmanex - continue anticoagulation - No Pulmonary contraindication for DC planning Dr Resendiz
[2019-03-26] MEDS: RIVAROXABAN 15 MG TABLET PO SCH (17:08)
--- NOTE | 2019-03-26 17:11 | PN ---
Physical Exam: SUBJECTIVE: Patient seen and examined, dizziness improved, breathing stable, no complaints. OBJECTIVE: Vital Signs Period Temp Pulse Resp BP Sys/Cortes Pulse Ox Last 24 Hr 97.7 F-98.7 F 66-108 18-20 119-133/52-82 100-100 Intake & Output 03/23/19 03/24/19 03/25/19 03/26/19 23:59 23:59 23:59 23:59 Intake Total 440 600 320 480 Output Total 400 Balance 440 600 320 80 GENERAL: sitting in bed in no acute distress Neck: soft, supple, improved neck vein distension chest: decreased breath sounds at bases, R>L Abdomen:soft, NT, ND, no RUQ tenderness, neg Marrero's sign extremities: no pedal edema psych: pleasant, co-operative CVS:S1S2 irregularly irregular Laboratory Results - last 24 hr 03/25/19 03/25/19 03/26/19 17:30 21:14 06:19 WBC RBC Hgb Hct MCV MCH MCHC RDW Plt Count MPV Absolute Neuts (auto) Neutrophils % Lymphocytes % Monocytes % Eosinophils % Basophils % Nucleated RBC % PT with INR INR Sodium Potassium Chloride Carbon Dioxide Anion Gap BUN Creatinine Est GFR (CKD-EPI)AfAm Est GFR (CKD-EPI)NonAf POC Glucometer 129 163 113 Random Glucose Calcium Phosphorus Magnesium Total Bilirubin Direct Bilirubin AST ALT Alkaline Phosphatase Total Protein Albumin 03/26/19 03/26/19 03/26/19 06:37 06:37 06:37 WBC 6.6 RBC 3.33 L Hgb 10.2 L Hct 30.1 L MCV 90.5 MCH 30.6 MCHC 33.8 RDW 17.1 H Plt Count 325 MPV 8.9 Absolute Neuts (auto) 5.6 Neutrophils % 84.9 H Lymphocytes % 7.0 L D Monocytes % 6.1 Eosinophils % 1.5 Basophils % 0.5 Nucleated RBC % 0 PT with INR 23.30 H INR 1.96 H Sodium 142 Potassium 3.7 Chloride 100 Carbon Dioxide 35 H Anion Gap 7 L BUN 28.9 H Creatinine 1.1 Est GFR (CKD-EPI)AfAm 53.02 Est GFR (CKD-EPI)NonAf 45.74 POC Glucometer Random Glucose 100 Calcium 9.7 Phosphorus 3.4 Magnesium 2.4 Total Bilirubin Direct Bilirubin AST ALT Alkaline Phosphatase Total Protein Albumin 03/26/19 03/26/19 03/26/19 06:37 11:45 16:54 WBC RBC Hgb Hct MCV MCH MCHC RDW Plt Count MPV Absolute Neuts (auto) Neutrophils % Lymphocytes % Monocytes % Eosinophils % Basophils % Nucleated RBC % PT with INR INR Sodium Potassium Chloride Carbon Dioxide Anion Gap BUN Creatinine Est GFR (CKD-EPI)AfAm Est GFR (CKD-EPI)NonAf POC Glucometer 159 125 Random Glucose Calcium Phosphorus Magnesium Total Bilirubin 0.7 Direct Bilirubin 0.3 H AST 180 H ALT 100 H Alkaline Phosphatase 107 Total Protein 6.0 L Albumin 2.5 L Active Medications Generic Name Dose Route Start Last Admin Trade Name Freq PRN Reason Stop Dose Admin Amiodarone HCl 200 mg 03/04/19 10:00 03/26/19 10:32 Cordarone - PO 200 mg DAILY [facility]ENNY Administration Atorvastatin Calcium 80 mg 03/03/19 22:00 03/24/19 21:55 Lipitor - PO 80 mg HS [facility]ENNY Administration Cyanocobalamin 1,000 mcg 03/04/19 10:00 03/26/19 10:32 Vitamin B12 - PO 1,000 mcg DAILY [facility]NY Administration Diltiazem HCl 10 mg 03/07/19 15:27 03/07/19 15:49 Cardizem Injection - IVPUSH 10 mg Q4H PRN Administration TACHYCARDIA Docusate Sodium 100 mg 03/04/19 22:00 03/26/19 10:31 Colace - PO Not Given BID JENNY Folic Acid 1 mg 03/04/19 10:00 03/26/19 10:32 Folic Acid - PO 1 mg DAILY [facility] Administration Furosemide 40 mg 03/16/19 10:00 03/26/19 10:32 Lasix - PO 40 mg DAILY [facility]NY Administration Insulin Aspart 1 vial 03/03/19 16:30 03/26/19 11:47 Novolog Vial Sliding Scale - SQ Not Given ACHS [facility] Protocol Metoprolol Succinate 100 mg 03/06/19 22:00 03/26/19 10:32 Toprol Xl - PO 100 mg BID [facility]NY Administration Midodrine 10 mg 03/23/19 10:55 03/26/19 14:02 Proamatine - PO 10 mg TID-MID [facility]NY Administration Mometasone Furoate 1 puff 03/03/19 22:00 03/26/19 10:30 Asmanex 220mcg - IH 1 puff BID [facility]ENNY Administration (Glucosamine/D3/ 1 tab 03/25/19 22:00 03/26/19 10:33 Boswellia Eda [ PO 1 tab Osteo Bi-Flex ] BID JENNY Administration Patient's Own Medication (Non- Formulary) Polyethylene Glycol 17 gm 03/03/19 22:00 03/26/19 10:32 Miralax (For Daily Use) - PO Not Given BID JENNY Ranolazine 500 mg 03/23/19 22:00 03/26/19 10:32 Ranexa - PO 500 mg DAILY [facility] Administration Rivaroxaban 15 mg 03/06/19 18:00 03/25/19 17:34 Xarelto PO 15 mg DAILY@1800 [facility]NY Administration Vitamin E 400 unit 03/04/19 10:00 03/26/19 10:31 Vitamin E - PO 400 unit DAILY [facility]NY Administration Microbiology 03/07/19 11:00 Pleural Fluid AFB Smear Concentration - Final 03/07/19 11:00 Pleural Fluid Mycobacterial Culture - Preliminary 03/07/19 11:00 Pleural Fluid Gram Stain - Final 03/07/19 11:00 Pleural Fluid Body Fluid Culture - Final NO GROWTH OF AEROBIC ORGANISMS AFTER 48 HOURS INCUBATION 03/07/19 11:00 Pleural Fluid Anaerobic Culture - Final NO ANAEROBES WERE ISOLATED 03/03/19 22:00 Blood - Peripheral Venous Blood Culture - Final NO GROWTH AFTER 5 DAYS INCUBATION 03/03/19 12:35 Blood - Peripheral Venous Blood Culture - Final NO GROWTH AFTER 5 DAYS INCUBATION 03/07/19 11:00 Pleural Fluid GIOVANNI Preparation - Preliminary 03/07/19 11:00 Pleural Fluid Fungal Culture - Preliminary 03/03/19 21:00 Urine - Urine Clean Catch Urine Culture - Final NO GROWTH OBTAINED Abdominal US results reviewed ASSESSMENT/PLAN: 83 yof with PMHx of CAD, s/p PCI, CABG (2003), DCHF, Afib on coumadin, HTN, NIDDM, Hyperlipidemia, chronic right sided pleural effusions s/p thoracocentesis , diverticulosis, gastritis, chronic anemia, RESTREPO with cirrhosis, and anxiety, admitted with CHF 01/2019, admitted with near syncope, hypotension -Near syncope, suspected hypovolumic hypotension -Severe orthostatic hypotension -Chronic diastolic heart failure -Abnormal LFTs, suspect passive hepatic congestion/known h/o cirrhosis. -Coagulopathy, ?From hepatic dysfunction/xarelto +/- Vitamin K deficiency -Anemia with constipation/gastritis -Afib with RVr -Chronic bilateral pleural effusions, R>L, s/p right thoracocentesis 1.5 bloody fluid 03/07 -Urinary retention, suspect from poor mobility+/- constipation -CAD s/p PCI, CABG 2013 -HTN -HLD -NIDDM -RESTREPO with cirrhosis -Pulmonary nodules Plan: Orthostatic symptoms improved, midodrine increased. Renal input noted, compression stockings. Lasix changed to PO, interval CXR to monitor volume status. LFTs noted, ?passive hepatic congestion,plateaued, abdominal US noted, No symptoms. Will continue to monitor. Sharp d/hiral, Bladder scan q6h and encourage OOB. Urology input noted Imdur/losartan d/hiral. Continue metoprolol/ranexa. Coumadin d/hiral, s/p vitamin K. INR improved. Continue xarelto. Dispo plan for SNF in 24-48 hours if continues to improve PT eval noted. Discussed with patient and nursing in detail, all questions answered. Visit type - Emergency Visit Emergency Visit: Yes ED Registration Date: 03/03/19 Care time: The patient presented to the Emergency Department on the above date and was hospitalized for further evaluation of their emergent condition. - New Patient This patient is new to me today: No - Critical Care Critical Care patient: No - Discharge Referral Referred to [facility] Med P.C.: No
[2019-03-26] MEDS ORDERED: IBUPROFEN 400 MG TABLET (FP) PO ONE (22:52)
[2019-03-27] MEDS: INSULIN SLIDING SCALE (NOVOLOG) 1 VIAL SQ SCH ×2 (06:00→11:33)
--- NOTE | 2019-03-27 06:52 | PN ---
Progress Note (short form) - Note Progress Note: Chief Complaint: Events noted, notes reviewed, denies any chest pain, reports persistent dyspnea although improved, reports generalized weakness History of Present Illness: Seen and examined on telemetry. Events noted, notes reviewed, denies any chest pain, reports persistent dyspnea although improved, reports generalized weakness 02/01/2019 Pharmacologic Lexiscan myocardial perfusion imaging study revealed No ischemia with LVEF 48% 02/02/2019 Echocardiography: Concentric left ventricular hypertrophy with normal LV and RV size and function, mild LAE, mild , tr TR RVSP 23 mmHg, pleural effusion 12/08/2018 Echocardiography: Concentric left ventricular hypertrophy with normal LV and RV size and function with LVEF 65-70%, mild LAE 4.6 cm, mild CHILO, mild MR, mild-moderate TR and RVSP of 31 mmHg Medications: Current Medications Amiodarone HCl (Cordarone -) 200 mg PO DAILY [facility] Last Admin: 03/26/19 10:32 Dose: 200 mg Atorvastatin Calcium (Lipitor -) 80 mg PO HS [facility] Last Admin: 03/24/19 21:55 Dose: 80 mg Cyanocobalamin (Vitamin B12 -) 1,000 mcg PO DAILY [facility] Last Admin: 03/26/19 10:32 Dose: 1,000 mcg Diltiazem HCl (Cardizem Injection -) 10 mg IVPUSH Q4H PRN PRN Reason: TACHYCARDIA Last Admin: 03/07/19 15:49 Dose: 10 mg Docusate Sodium (Colace -) 100 mg PO BID [facility] Last Admin: 03/26/19 21:17 Dose: Not Given Folic Acid (Folic Acid -) 1 mg PO DAILY [facility] Last Admin: 03/26/19 10:32 Dose: 1 mg Furosemide (Lasix -) 40 mg PO DAILY [facility] Last Admin: 03/26/19 10:32 Dose: 40 mg Insulin Aspart (Novolog Vial Sliding Scale -) 1 vial SQ ACHS [facility]; Protocol Last Admin: 03/27/19 06:00 Dose: Not Given Metoprolol Succinate (Toprol Xl -) 100 mg PO BID [facility] Last Admin: 03/26/19 21:16 Dose: 100 mg Midodrine (Proamatine -) 10 mg PO TID-MID [facility] Last Admin: 03/26/19 17:08 Dose: 10 mg Mometasone Furoate (Asmanex 220mcg -) 1 puff IH BID [facility] Last Admin: 03/26/19 21:17 Dose: 1 puff (Glucosamine/D3/Boswellia Eda [ Osteo Bi-Flex ] Patient's Own Medication (Non - Formulary) 1 tab PO BID [facility] Last Admin: 03/26/19 21:17 Dose: 1 tab Polyethylene Glycol (Miralax (For Daily Use) -) 17 gm PO BID [facility] Last Admin: 03/26/19 21:17 Dose: Not Given Ranolazine (Ranexa -) 500 mg PO DAILY [facility] Last Admin: 03/26/19 10:32 Dose: 500 mg Rivaroxaban (Xarelto) 15 mg PO DAILY@1800 [facility] Last Admin: 03/26/19 17:08 Dose: 15 mg Vitamin E (Vitamin E -) 400 unit PO DAILY [facility] Last Admin: 03/26/19 10:31 Dose: 400 unit Review of Systems Constitutional: denies: Chills or Fever Cardiovascular: as noted above Respiratory: denies: Cough or Sputum Production Gastrointestinal: denies: Nausea, Vomiting, Diarrhea, Constipation or Abdominal Pain Genitourinary: denies: Dysuria Musculoskeletal: denies: Joint Pain Neurological: denies: Dizziness or Headache Vital Signs: Last Vital Signs Temp Pulse Resp BP Pulse Ox 97.6 F 75 18 115/66 99 03/27/19 06:00 03/27/19 06:00 03/27/19 06:00 03/27/19 06:00 03/26/19 21:00 Intake & Output 03/24/19 03/25/19 03/26/19 03/27/19 23:59 23:59 23:59 23:59 Intake Total 600 320 880 120 Output Total 400 Balance 600 320 480 120 Constitutional: No Distress, Calm, Thin Respiratory: Diminished at the Bases Cardiovascular: S1 S2 Irregularly Irregular Grade 2/6 Systolic Ejection Murmur Gastrointestinal: Soft Benign Normal Bowel Sounds Ext: No Edema Labs: CBC, BMP 03/27/19 06:15 03/27/19 06:15 Hepatic Panel Total Bilirubin 0.7 mg/dL (0.2-1) 03/27/19 06:15 Direct Bilirubin 0.3 mg/dL (0.0-0.2) H 03/27/19 06:15 AST 162 U/L (15-37) H 03/27/19 06:15 ALT 99 U/L (13-61) H 03/27/19 06:15 Alkaline Phosphatase 109 U/L (45-117) 03/27/19 06:15 Albumin 2.4 g/dl (3.4-5.0) L 03/27/19 06:15 ABG Results ABG pH 7.38 (7.35-7.45) 03/05/19 12:24 ABG pCO2 at Pt Temp 45.2 mmHg (35-45) H 03/05/19 12:24 ABG pO2 at Pt Temp 123 mmHg (80-105) H 03/05/19 12:24 ABG HCO3 25.9 mmol/L (22-27) 03/05/19 12:24 ABG O2 Sat (Measured) 97.0 % (95-98) 03/05/19 12:24 ABG O2 Content 12.6 % vol (15-22) L 03/05/19 12:24 ABG Base Excess 1.0 meq/l (-2-2) 03/05/19 12:24 Assessment/Plan ASSESSMENT: 1. Recurrent orthostatic hypotension/near syncope, resolved 2. Coronary artery disease status post artery bypass grafting status post percutaneous coronary intervention angina pectoris. 3. Acute on chronic class I-II [place] [employer] classification left ventricular failure related to diastolic left ventricular dysfunction with bilateral pleural effusions (R>L) post right thoracentesis- reactive lymphocytes /negative for malignant cells 4. Persistent atrial fibrillation [id number] score of 6 on chronic anticoagulation therapy with DOAC's/Xarelto, improved rate-control 5. Hypertension 6. Diabetes mellitus 7. Hypercholesterolemia 8. Chronic obstructive pulmonary disease 9. Acute on chronic kidney disease 10. RESTREPO with cirrhosis 11. History of cholelithiasis 12. Mesenteric mass of undermined etiology 13. Chronic anemia with history of diverticulosis and gastritis 14. Abnormal TSH PLAN: 1. Continue Lasix at 40 mg once daily/home dose with close monitoring of renal function and electrolytes 2. Continue renal-dosed Xarelto at 15 mg once daily 3. Continue Toprol XL at 100 mg twice daily hemodynamics permitting/ continuation of Midodrine therapy at 10 mg 3 times daily as needed hemodynamics necessitating 4. Continue Ranexa at the above-noted dosage at 500 mg once daily 5. Continue Amiodarone 6. Continue Lipitor and eventually Vascepa resumption at 2 g twice daily 7. Discharge planning to [facility] facility; and eventual office followup post discharge Reyna Sage M.D.
[2019-03-27 07:37] LABS: BASO % 0.9 % (0-2.0); EOS % 0.9 % (0-4.5); HEMOGLOBIN 9.5 GM/dL (10.7-15.3); LYMPH % 12.6 % (8-40); MCH 30.9 pg (25.7-33.7); MEAN CELL VOLUME 90.7 fl (80-96); MONO % 8.1 % (3.8-10.2); NEUT % 77.5 % (42.8-82.8); PLATELET COUNT 309 K/MM3 (134-434); RBC 3.08 M/mm3 (3.60-5.2); RDW 16.8 % (11.6-15.6); WHITE BLOOD COUNT 5.5 K/mm3 (4.0-10.0)
[2019-03-27 07:47] LABS: INR 1.88 (0.83-1.09); PROTHROMBIN TIME (PATIENT) 22.3 SEC (9.7-13.0)
[2019-03-27 07:52] LABS: ALBUMIN 2.4 g/dl (3.4-5.0); BILIRUBIN,DIRECT 0.3 mg/dL (0.0-0.2); BILIRUBIN,TOTAL 0.7 mg/dL (0.2-1); BLOOD UREA NITROGEN 35.6 mg/dL (7-18); CALCIUM 9.6 mg/dL (8.5-10.1); CREATININE 1.2 mg/dL (0.55-1.3); MAGNESIUM 2.3 mg/dL (1.8-2.4); PHOSPHOROUS 3.7 mg/dL (2.5-4.9); POTASSIUM 3.5 mmol/L (3.5-5.1); TOT PROT 5.9 g/dl (6.4-8.2)
[2019-03-27 10:08] VITALS: BP 112/55; PULSE 77; TEMP 97.8
[2019-03-27] MEDS: FOLIC ACID 1 MG TABLET (FP) PO SCH (10:13)
[2019-03-27] MEDS: AMIODARONE HCL 200 MG TABLET (FP) PO SCH (10:14)
[2019-03-27] MEDS: FUROSEMIDE 40 MG TABLET (FP) PO SCH (10:14)
[2019-03-27] MEDS: RANOLAZINE E.R. 500 MG TABLET (FP) PO SCH (10:14)
[2019-03-27] MEDS: DOCUSATE SODIUM 100 MG CAPSULE (FP) PO SCH (10:14)
[2019-03-27] MEDS: CYANOCOBALAMIN 1,000 MCG TABLET (FP) PO SCH (10:14)
[2019-03-27] MEDS: MIDODRINE HCL 5 MG TABLET PO SCH (10:17)
[2019-03-27] MEDS: MOMETASONE FUROATE 220 MCG/IH INHALER IH SCH (10:19)
[2019-03-27] MEDS: VITAMIN E 400 INTERNATIONAL-UNITS CAPSULE (FP) PO SCH (10:21)
[2019-03-27] MEDS: POLYETHYLENE GLYCOL 3350 119 GM BTL PO SCH (10:23)
[2019-03-27] MEDS: BOSWELLIA SERRA PO SCH (10:25)
[2019-03-27] MEDS: GLUCOSAMINE PO SCH (10:25)
[2019-03-27] MEDS: D3 PO SCH (10:25)
[2019-03-27] MEDS: [UNRECOGNIZED DRUG - OTHER] PO SCH (10:25)
--- NOTE | 2019-03-27 11:10 | DS ---
Physical Exam: SUBJECTIVE: Patient seen and examined, breathing stable, no dizziness. Still weak, afraid to get up, overall feels better. No nausea, vomiting, abdominal pain or diarrhea, tolerating diet well. OBJECTIVE: Vital Signs Period Temp Pulse Resp BP Sys/Cortes Pulse Ox Last 24 Hr 97.6 F-98.7 F 75-95 18-18 111-130/55-86 93-99 Intake & Output 03/24/19 03/25/19 03/26/19 03/27/19 23:59 23:59 23:59 23:59 Intake Total 600 320 880 120 Output Total 400 Balance 600 320 480 120 PHYSICAL EXAM GENERAL: sitting in bed in no acute distress Neck: soft, supple, improved neck vein distension chest: decreased breath sounds at bases, R>L Abdomen:soft, NT, ND, no RUQ tenderness, neg Marrero's sign extremities: no pedal edema psych: pleasant, co-operative CVS:S1S2 irregularly irregular LABS Laboratory Results - last 24 hr 03/26/19 03/26/19 03/26/19 11:45 16:54 21:14 WBC RBC Hgb Hct MCV MCH MCHC RDW Plt Count MPV Absolute Neuts (auto) Neutrophils % Lymphocytes % Monocytes % Eosinophils % Basophils % Nucleated RBC % PT with INR INR Sodium Potassium Chloride Carbon Dioxide Anion Gap BUN Creatinine Est GFR (CKD-EPI)AfAm Est GFR (CKD-EPI)NonAf POC Glucometer 159 125 124 Random Glucose Calcium Phosphorus Magnesium Total Bilirubin Direct Bilirubin AST ALT Alkaline Phosphatase Total Protein Albumin 03/27/19 03/27/19 03/27/19 05:48 06:15 06:15 WBC 5.5 RBC 3.08 L Hgb 9.5 L Hct 28.0 L MCV 90.7 MCH 30.9 MCHC 34.0 RDW 16.8 H Plt Count 309 MPV 9.0 Absolute Neuts (auto) 4.3 Neutrophils % 77.5 Lymphocytes % 12.6 D Monocytes % 8.1 Eosinophils % 0.9 Basophils % 0.9 Nucleated RBC % 0 PT with INR 22.30 H INR 1.88 H Sodium Potassium Chloride Carbon Dioxide Anion Gap BUN Creatinine Est GFR (CKD-EPI)AfAm Est GFR (CKD-EPI)NonAf POC Glucometer 133 Random Glucose Calcium Phosphorus Magnesium Total Bilirubin Direct Bilirubin AST ALT Alkaline Phosphatase Total Protein Albumin 03/27/19 06:15 WBC RBC Hgb Hct MCV MCH MCHC RDW Plt Count MPV Absolute Neuts (auto) Neutrophils % Lymphocytes % Monocytes % Eosinophils % Basophils % Nucleated RBC % PT with INR INR Sodium 139 Potassium 3.5 Chloride 99 Carbon Dioxide 33 H Anion Gap 7 L BUN 35.6 H Creatinine 1.2 Est GFR (CKD-EPI)AfAm 47.72 Est GFR (CKD-EPI)NonAf 41.18 POC Glucometer Random Glucose 103 Calcium 9.6 Phosphorus 3.7 Magnesium 2.3 Total Bilirubin 0.7 Direct Bilirubin 0.3 H AST 162 H ALT 99 H Alkaline Phosphatase 109 Total Protein 5.9 L Albumin 2.4 L Abdominal US: Upper abdomen ultrasound. The liver is within normal limits in size measuring 13.7 cm in sagittal length with a slightly dense The gallbladder is adequately distended with multiple small intraluminal stones and without wall thickening or pericholecystic free fluid. No intra or extrahepatic bile duct dilatation is seen. The right and left kidney measured 9 and 11 cm , respectively. There is a small nonobstructing stone in the left renal lower pole measuring 7 mm. The spleen measures 10.7 cm in sagittal length with homogeneous echotexture. Visualized portion of the pancreas appears unremarkable. Visualized portion of the proximal abdominal aorta and inferior vena cava appear unremarkable. Normal flow in the main portal vein. Note is made of bilateral pleural effusion IMPRESSION: Multiple small gallstones without sonographic evidence of acute cholecystitis. Mild fatty infiltration of the liver versus hepatocellular disease. Please correlate with liver enzymes. Small nonobstructing left renal stone measuring 7 mm. Bilateral pleural effusion. US guided thoracocentesis: Indication: Shortness of breath Ultrasound investigation of the pleural spaces reveals a large right-sided pleural effusion. Hardcopy image preserved in the patient's permanent record. Sterile technique was utilized including hand hygiene, mask, cap, sterile gown and sterile gloves. Informed consent was obtained. Risk and benefits discussed including bleeding, infection, pneumothorax. All questions answered. Signed consent was obtained. [place] timeout was performed. Patient identity and procedure was discussed. The skin was prepped with 2% chlorhexidine and a sterile sheet. The skin and subcutaneous soft tissues were infiltrated with 1% lidocaine. A 5 Fijian needle sheath combination was advanced into the right pleural space under ultrasound guidance. A static image was preserved in the patient's permanent record. A total of 1.4 L of pleural fluid which appeared serosanguineous was drained. Postprocedure imaging reveals minimal residual fluid. The patient tolerated this procedure well. Chest x-ray reveals no pneumothorax. IMPRESSION: Ultrasound guidance for a right thoracentesis as described above. Microbiology 03/07/19 11:00 Pleural Fluid AFB Smear Concentration - Final 03/07/19 11:00 Pleural Fluid Mycobacterial Culture - Preliminary 03/07/19 11:00 Pleural Fluid Gram Stain - Final 03/07/19 11:00 Pleural Fluid Body Fluid Culture - Final NO GROWTH OF AEROBIC ORGANISMS AFTER 48 HOURS INCUBATION 03/07/19 11:00 Pleural Fluid Anaerobic Culture - Final NO ANAEROBES WERE ISOLATED 03/03/19 22:00 Blood - Peripheral Venous Blood Culture - Final NO GROWTH AFTER 5 DAYS INCUBATION 03/03/19 12:35 Blood - Peripheral Venous Blood Culture - Final NO GROWTH AFTER 5 DAYS INCUBATION 03/07/19 11:00 Pleural Fluid GIOVANNI Preparation - Preliminary 03/07/19 11:00 Pleural Fluid Fungal Culture - Preliminary 03/03/19 21:00 Urine - Urine Clean Catch Urine Culture - Final NO GROWTH OBTAINED HOSPITAL COURSE: Date of Admission:03/03/19 Date of Discharge: 03/27/19 Minutes to complete discharge: 40 Discharge Summary Reason For Visit: ANEMIA,ABNORMAL THYROID STIMULATING LEVEL, Current Active Problems Abnormal TSH (Acute) Anemia (Acute) Anorexia (Acute) CKD (chronic kidney disease) (Acute) Chronic atrial fibrillation (Acute) Cirrhosis of liver not due to alcohol (Acute) Colon adenomas (Acute) Coumadin toxicity (Acute) Diverticulosis (Acute) Hypotension (Acute) Mesenteric mass (Acute) Portal hypertensive gastropathy (Acute) Renal calculus, left (Acute) Renal calculus, left (Acute) Urinary retention (Acute) Urinary retention (Acute) Weight loss (Acute) Hospital Course: 83 yof with PMHx of CAD, s/p PCI, CABG (2003), DCHF, Afib on coumadin, HTN, NIDDM, Hyperlipidemia, chronic right sided pleural effusions s/p thoracocentesis , diverticulosis, gastritis, chronic anemia, RESTREPO with cirrhosis, and anxiety, admitted with CHF 01/2019, admitted with near syncope, hypotension. She had worsening right pleural effusion, had 1.4 L thoracentesis. Shad recurrent episodes of orthostatic hypotension, her imdur/losartan have been discontinued. She was noted with recurrent fluid overload and placed on IV lasix. She was started on midodrine titrated up to 10 mg TID with improvement in her orthostasis. She was also noted with afib with RVR that improved with uptitration of her metoprolol to 100 mg BID. She had elevated INR 4.9 on admission, received Vitamin K. She was placed on xarelto. She had recurrent abnormal LFTs and rising INR, had abdominal US as above, with no acute concerns, suspected from passive hepatic congestion. She was continued on diuresis, her LFTs have improved. Her statin is currently on hold and she will need outpatient LFTs monitoring and resumption of her lipitor accordingly. She also had transient urinary retention, had chacon placed, was seen by urology. She was transiently placed on flomax but discontinued given her severe orthostatic hypotension. She will be discharged to SNF with close monitoring of her volume status/renal/ hepatic function and close follow up with cardiology. Condition: Stable - Instructions Diet, Activity, Other Instructions: MEDICATIONS: Stop losartan and imdur. Amiodarone has been decreased to 200 mg daily. Continue lasix 40 mg daily Started on midodrine 10 mg 3 times daily (10 AM, 2 PM and 6 PM), take only when upright and ensure you are up in bed and ambulating after taking this medication. Your oral diabetes medications have been stopped Sliding scale at the facility You cholesterol medication lipitor is being held on discharge, can be resumed based on liver tests outpatient in 1 week. Continue other medications as before. INSTRUCTIONS: Midodrine 10 mg daily 3 times daily to be taken at 10 AM, 2 PM and 6 PM. Please take only when sitting upright and ensure that you are up in bed or ambulating after taking this medication. Please discuss with your doctor to taper medication as symptoms improve. Weigh yourself daily and notify doctor if weight gain > 3 lbs in 2 days. Avoid sudden changes in position. Please ensure you give yourself enough time while sitting up from lying position and standing up and ensure you do it with assistance. You liver tests were abnormal, do not take tylenol till further instructed by your doctor. You will need close monitoring of your kidney function, liver function outpatient. FOLLOW UP: Blood work CBC, BMP, LFTs, INR in 1 week (discuss resumption of your cholesterol medication lipitor accordingly) Chest xray in 1-2 weeks With gore stitcher in 1 week With primary care doctor in 1 week If you notice worsening breathing, jaundice, belly pain, severe dizziness or any new concerns, please call 911 or come to the ED. Referrals: Reyna Sage MD [Staff Physician] - Santana Castillo MD [Staff Physician] - Disposition: [facility] - Home Medications Comprehensive Discharge Medication List: Ambulatory Orders Folic Acid - 400 mcg PO ASDIR 02/16/12 Tiotropium [place] [Spiriva] 18 mcg IH DAILY PRN 02/09/15 Albuterol Sulfate [Proair Respiclick] 90 mcg IH BID PRN 03/18/16 Beclomethasone Dipropionate [Qvar] 0.04 mg IH BID 03/18/16 Furosemide [Lasix -] 40 mg PO DAILY 03/18/16 Glucosamine/D3/Boswellia Eda [Osteo Bi-Flex Caplet] 1 tab PO BID 03/18/16 Iron,Carbonyl [Feosol] 65 mg PO DAILY 03/18/16 Mometasone Furoate [Asmanex] 220 mcg IH BID PRN 03/18/16 Cyanocobalamin (Vitamin B-12) [Vitamin B-12] 1,000 mcg PO DAILY 02/01/19 Icosapent Ethyl [Vascepa] 2 gm PO BID 02/01/19 Metoprolol Succinate [Toprol Xl] 50 mg PO BID 02/01/19 Vitamin E 1 tab PO DAILY 02/01/19 Aspirin 81 mg PO DAILY 03/03/19 Amiodarone HCl [Cordarone -] 200 mg PO DAILY tablet 03/27/19 Docusate Sodium [Colace -] 100 mg PO BID capsule 03/27/19 Insulin Sliding Scale [Novolog Vial Sliding Scale -] 1 vial SQ ACHS units 03/27 Midodrine HCl [Proamatine -] 10 mg PO TID-MID tablet 03/27/19 Polyethylene Glycol 3350 [Miralax 119 gm Btl -] 17 gm PO BID bottle 03/27/19 Ranolazine [Ranexa -] 500 mg PO DAILY tab 03/27/19 Rivaroxaban [Xarelto] 15 mg PO DAILY@1800 tablet 03/27/19 This patient is new to me today: No Emergency Visit: Yes ED Registration Date: 03/03/19 Care time: The patient presented to the Emergency Department on the above date and was hospitalized for further evaluation of their emergent condition. Critical Care patient: No - Discharge Referral Referred to [facility] Med P.C.: No
== END 2019-03-27 12:09 | DRG 291 ==
LOC: JER 11:48 → JERBED 14:34 → J4S 18:57
PROVIDERS: ADMIT Internal Medicine; ATTEND Hospitalist
PROC: 0W993ZX Drainage of Right Pleural Cavity, Percutaneous Approach, Diagnostic (ICD-10-PCS; principal; 2019-03-07)
DX: I13.0 Hypertensive heart and chronic kidney disease with heart failure and stage 1 through stage 4 chronic kidney disease, or unspecified chronic kidney disease (principal); I50.33 Acute on chronic diastolic (congestive) heart failure; J90 Pleural effusion, not elsewhere classified; N17.9 Acute kidney failure, unspecified; I25.119 Atherosclerotic heart disease of native coronary artery with unspecified angina pectoris; I48.91 Unspecified atrial fibrillation; E11.9 Type 2 diabetes mellitus without complications; K64.4 Residual hemorrhoidal skin tags; E78.5 Hyperlipidemia, unspecified; K57.90 Diverticulosis of intestine, part unspecified, without perforation or abscess without bleeding; K29.60 Other gastritis without bleeding; D64.9 Anemia, unspecified; K44.9 Diaphragmatic hernia without obstruction or gangrene; D12.6 Benign neoplasm of colon, unspecified; E11.22 Type 2 diabetes mellitus with diabetic chronic kidney disease; N18.2 Chronic kidney disease, stage 2 (mild); E86.1 Hypovolemia; I48.0 Paroxysmal atrial fibrillation; R79.89 Other specified abnormal findings of blood chemistry; R91.1 Solitary pulmonary nodule; R63.4 Abnormal weight loss; K63.89 Other specified diseases of intestine; R55 Syncope and collapse; F41.9 Anxiety disorder, unspecified; R42 Dizziness and giddiness; T45.515A Adverse effect of anticoagulants, initial encounter; Y92.89 Other specified places as the place of occurrence of the external cause; K59.09 Other constipation; W18.39XA Other fall on same level, initial encounter; K74.60 Unspecified cirrhosis of liver; R33.9 Retention of urine, unspecified; Z95.1 Presence of aortocoronary bypass graft; Z87.891 Personal history of nicotine dependence; Z68.24 Body mass index [BMI] 24.0-24.9, adult; Y93.89 Activity, other specified; Y92.231 Patient bathroom in hospital as the place of occurrence of the external cause; N20.0 Calculus of kidney; Z95.5 Presence of coronary angioplasty implant and graft
CPT/HCPCS: 36415; 36600; 70450-TC; 71045-TC-FY; 72125-TC; 76700-TC; 76942; 80048; 80053; 80076; 81003; 82042; 82105; 82150; 82272; 82465; 82728; 82803; 82945; 82962; 83540; 83550; 83605; 83615; 83735; 83880; 83986; 84100; 84157; 84439; 84443; 84478; 84480; 84481; 84484; 85025; 85027; 85044; 85610; 85730; 87040; 87070; 87075; 87086; 87102; 87116; 87205; 87206; 87210; 88108; 88305-TC; 88341-TC; 93005; 93010; 94640; 97116-GP; 97161-GP; 99284-25; J7030

== ENCOUNTER 2019-08-14 22:14 | Inpatient (IN) | payer OTHER, BC ==
--- NOTE | 2019-08-14 22:41 | PDOC ---
History of Present Illness - General Stated Complaint: WEAKNESS - History of Present Illness Initial Comments: The pt is an 84F w/ a history of CAD s/p CABG x3, a-fib (xarelto), HTN, HLD, COPD, DM w/ BUE/BLE neuropathy who presents for evaluation of chest pain and left arm pain. She reports left sided chest pressure that was constant, began at rest, lasted for less than an hour, and has since resolved. She notes left arm pain that started at that time that has been improving but is still present. She denies fevers/chills, current CP, SOB, LYMAN, vision changes, N/V/C/D , dysuria, hematuria, or acute changes in sensation. 08/14/19 23:13 Past History - Past Medical History Allergies/Adverse Reactions: Allergies Allergy/AdvReac Type Severity Reaction Status Date / Time pollen extracts Allergy Unknown Verified 02/01/19 18:48 HONEYDEW Allergy Severe Difficulty Uncoded 02/01/19 18:48 Breathing HAYFEVER,GRASS,POLLEN Allergy Uncoded 02/01/19 18:48 Home Medications: Ambulatory Orders Folic Acid - 400 mcg PO ASDIR 02/16/12 Furosemide [Lasix -] 20 mg PO DAILY 03/18/16 Glucosamine/D3/Boswellia Eda [Osteo Bi-Flex Caplet] 1 tab PO BID 03/18/16 Iron,Carbonyl [Feosol] 65 mg PO DAILY 03/18/16 Mometasone Furoate [Asmanex] 220 mcg IH BID PRN 03/18/16 Cyanocobalamin (Vitamin B-12) [Vitamin B-12] 1,000 mcg PO DAILY 02/01/19 Vitamin E 1 tab PO DAILY 02/01/19 Amiodarone HCl [Cordarone -] 200 mg PO DAILY tablet 03/27/19 Docusate Sodium [Colace -] 100 mg PO BID capsule 03/27/19 Insulin Sliding Scale [Novolog Vial Sliding Scale -] 1 vial SQ ACHS units 03/27 Polyethylene Glycol 3350 [Miralax 119 gm Btl -] 17 gm PO BID bottle 03/27/19 Rivaroxaban [Xarelto] 15 mg PO DAILY@1800 tablet 03/27/19 Acetaminophen [Pain Relief] 650 mg PO PRN PRN 08/15/19 Albuterol 2.5/Ipratropium 0.5 [Duoneb -] 1 neb NEB Q4H PRN 08/15/19 Atorvastatin Calcium 40 mg PO DAILY 08/15/19 Famotidine [Pepcid -] 40 mg PO DAILY 08/15/19 Metoprolol Tartrate 50 mg PO DAILY 08/15/19 Ranitidine HCl [Acid Trailer Park Manager] 150 mg PO DAILY 08/15/19 Ranolazine [Ranexa -] 500 mg PO BID 08/15/19 Silver Sulfadiazine [Silvadene] 1,000 gm TP DAILY 08/15/19 Anemia: Yes Asthma: Yes Cancer: (Mid mesenteric mass-pt refused biospy and w/u) Cardiac Disorders: Yes (ASHD, AF, CADs/p stent 2010, [place], Angina) CVA: No COPD: Yes (pleural effusion, thoracentesis, COPD, stable lung nodules) CHF: Yes Dementia: No Diabetes: Yes (NIDDM-takes pills) GI Disorders: Yes (Mid mesenteric mass,HH,polyps,h.pylori,constipation, diverticulosis,gastriti) Disorders: Yes (UTI) HTN: Yes Hypercholesterolemia: Yes 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) Seizures: No Thyroid Disease: No - Surgical History Abdominal Surgery: No Appendectomy: No Cardiac Surgery: Yes (S/P CABG 2003) Cholecystectomy: No Lung Surgery: Yes (THORACENTESIS) Neurologic Surgery: No Orthopedic Surgery: Yes (RIGHT CARPAL TUNNEL RELEASE) - Psycho Social/Smoking Cessation Hx Smoking Status: No Smoking History: Unknown if ever smoked Have you smoked in the past 12 months: No Number of Cigarettes Smoked Daily: 0 If you are a former smoker, when did you quit?: 1981 Hx Alcohol Use: No Drug/Substance Use Hx: No Substance Use Type: None Hx Substance Use Treatment: No Review of Systems - Review of Systems Able to Perform ROS?: Yes Comments:: GENERAL/CONSTITUTIONAL: No fever or chills. No weakness HEAD, EYES, EARS, NOSE AND THROAT: No change in vision. No change in hearing. No sore throat CARDIOVASCULAR: +CP that has resolved; denies SOB RESPIRATORY: Denies cough, hemoptysis GASTROINTESTINAL: No nausea, vomiting, diarrhea or constipation GENITOURINARY: Chronic incontinence MUSCULOSKELETAL: No joint or muscle swelling or pain. No neck or back pain SKIN: No rash NEUROLOGIC: No headache, vertigo, loss of consciousness, or change in strength/ sensation ENDOCRINE: No increased thirst. No abnormal weight change HEMATOLOGIC/LYMPHATIC: No anemia, easy bleeding, or history of blood clots ALLERGIC/IMMUNOLOGIC: No hives or skin allergy 08/14/19 22:40 Is the patient limited [place] proficient: No *Physical Exam - Vital Signs Initial Vital Signs Temp Pulse Resp BP Pulse Ox 96.5 F L 71 16 103/64 95 08/14/19 22:39 08/14/19 22:39 08/14/19 22:39 08/14/19 22:39 08/14/19 22:39 08/14/19 23:17 - Physical Exam GENERAL: Awake, alert, and oriented to person/place/time, in no acute distress HEAD: No signs of trauma, normocephalic, atraumatic EYES: PERRLA, EOMI, sclera anicteric, conjunctiva clear ENT: Hearing grossly normal, nares patent, oropharynx clear without exudates. Moist mucosa LUNGS: No distress, speaks in full sentences, clear to auscultation bilaterally HEART: Irregularly irregular rhythm w/ systolic murmur, peripheral pulses normal and equal bilaterally ABDOMEN: Soft, protuberant, NTTP, normoactive bowel sounds. No guarding, no rebound EXTREMITIES: Moves all extremities independently, has not ambulated without full assistance in months NEUROLOGICAL: Cranial nerves II through XII grossly intact. Normal speech, no focal sensorimotor deficits SKIN: Warm, Dry 08/14/19 22:40 08/14/19 23:19 ED Treatment Course - LABORATORY CBC & Chemistry Diagram: 08/15/19 05:25 08/14/19 23:00 Medical Decision Making - Medical Decision Making The pt is an 84F w/ a history of CAD s/p CABG x3, a-fib (xarelto), HTN, HLD, COPD, DM w/ BUE/BLE neuropathy who presents for evaluation of chest pain and left arm pain. ED Course CMP, CBC, Trop, UA, UCx ECG CXR ECG w/ a-fib; HR 89; QTc 484; right axis deviation; no CRISTHIAN, abn ecg 08/14/19 23:19 CXR w/ R pulmonary effusion and b/l pulmonary vascular congestion No leukocytosis No anemia Lytes unremarkable No TYLER Trop 0.06 BNP elevated but near baseline Plan for admission for ACS obs Pt signed to Cirilo 08/15/19 06:22 Discharge - Discharge Information Problems reviewed: Yes Clinical Impression/Diagnosis: ACS (acute coronary syndrome), Chronic atrial fibrillation Condition: Guarded - Admission Yes - Follow up/Referral - Patient Discharge Instructions - Post Discharge Activity
--- NOTE | 2019-08-14 22:42 | PDOC ---
Attending Attestation - Resident Resident Name: ElpidioesterShahbazAddy - ED Attending Attestation I have performed the following: I have examined & evaluated the patient, The case was reviewed & discussed with the resident, I agree w/resident's findings & plan - HPI HPI: 08/14/19 23:34 see resident hpi - Physicial Exam PE: 08/14/19 23:34 agree with resident exam - Medical Decision Making 08/14/19 23:34 84-year-old female with history of cardiac bypass surgery with chest pressure now resolved EKG shows no acute ST segment elevations Plan for chest x-ray and labs as well as admission to hospitalist service for further management
[2019-08-14 23:41] LABS: BASO % 0.9 % (0-2.0); EOS % 6.2 % (0-4.5); HEMATOCRIT 35.4 % (32.4-45.2); HEMOGLOBIN 11.5 GM/dL (10.7-15.3); LYMPH % 15.6 % (8-40); MCH 31.2 pg (25.7-33.7); MCHC 32.5 g/dl (32.0-36.0); MEAN CELL VOLUME 96.1 fl (80-96); MEAN PLT VOLUME 8.2 fl (7.5-11.1); MONO % 8.3 % (3.8-10.2); PLATELET COUNT 333 K/MM3 (134-434); RBC 3.68 M/mm3 (3.60-5.2); WHITE BLOOD COUNT 5.5 K/mm3 (4.0-10.0)
[2019-08-14 23:52] LABS: INR 0.96 (0.83-1.09); PROTHROMBIN TIME (PATIENT) 11.3 SEC (9.7-13.0)
[2019-08-14 23:54] LABS: ACTIVATED PTT 36.1 SECONDS (25.2-36.5)
[2019-08-15 00:19] LABS: ALBUMIN 2.4 g/dl (3.4-5.0); BILIRUBIN,TOTAL 0.5 mg/dL (0.2-1); CALCIUM 9.4 mg/dL (8.5-10.1); CREATININE 0.8 mg/dL (0.55-1.3); POTASSIUM 3.5 mmol/L (3.5-5.1)
--- NOTE | 2019-08-15 01:21 | PN ---
Teaching Attending Note Name of Resident: Urvashi Meza ATTENDING PHYSICIAN STATEMENT I saw and evaluated the patient. I reviewed the resident's note and discussed the case with the resident. I agree with the resident's findings and plan as documented. SUBJECTIVE: Patient is an 84 year old woman with a PMH of CAD (s/p CABG x3), Afib on Xarelto , HFpEF, Mid-mesenteric mass, Pleural effusion (s/p thoracentesis), Stable lung nodules, HTN, HLD, COPD, NIDDM and Peripheral neuropathy who presents for evaluation of chest pain and left arm pain. She reports left sided chest pressure that was constant, began at rest, lasted for less than an hour, and has since resolved. She notes left arm pain that started at that time that has been improving but is still present. She denies fevers, chills, current chest pain, SOB, headache, nausea, vomiting, diarrhea, constipation, dysuria, hematuria, or acute changes in sensation. No recent sick contacts or travels. Denies alcohol, tobacco or illicit drug use. OBJECTIVE: Alert Vital Signs Period Temp Pulse Resp BP Sys/Cortes Pulse Ox Last 24 Hr 96.5 F 71 16 103/64 95 HEENT: No Jaundice, eye redness or discharge, PERRLA, EOMI. Normocephalic, atraumatic. External ears are normal and hearing is grossly intact. No nasal discharge. Neck: Supple, nontender. No palpable adenopathy or thyromegaly. No JVD Chest: Good effort. Diminished bibasilar breath sounds (R>L). Heart: Regular. No S3, rub or murmur Abdomen: Not distended, soft, nontender and no HSM. No rebound or guarding. Normal bowel sounds. Ext: Peripheral pulses intact. Leg edema. Skin: Warm and dry. No petechiae, rash or ecchymosis. Neuro: Alert. Oriented x3. CN 2-12 grossly intact. Sensation grossly intact in all four extremities and DTR are symmetric. Psych: Appropriate mood and affect. Good insight. Home Medications Medication Instructions Recorded Folic Acid - 400 mcg PO ASDIR 02/16/12 Tiotropium [place] [Spiriva] 18 mcg IH DAILY PRN 02/09/15 Albuterol Sulfate [Proair 90 mcg IH BID PRN 03/18/16 Respiclick] Beclomethasone Dipropionate [Qvar] 0.04 mg IH BID 03/18/16 Furosemide [Lasix -] 40 mg PO DAILY 03/18/16 Glucosamine/D3/Boswellia Eda 1 tab PO BID 03/18/16 [Osteo Bi-Flex Caplet] Iron,Carbonyl [Feosol] 65 mg PO DAILY 03/18/16 Mometasone Furoate [Asmanex] 220 mcg IH BID PRN 03/18/16 Cyanocobalamin (Vitamin B-12) 1,000 mcg PO DAILY 02/01/19 [Vitamin B-12] Icosapent Ethyl [Vascepa] 2 gm PO BID 02/01/19 Vitamin E 1 tab PO DAILY 02/01/19 Aspirin 81 mg PO DAILY 03/03/19 Amiodarone HCl [Cordarone -] 200 mg PO DAILY tablet 03/27/19 Docusate Sodium [Colace -] 100 mg PO BID capsule 03/27/19 Insulin Sliding Scale [Novolog 1 vial SQ ACHS units 03/27/19 Vial Sliding Scale -] Metoprolol Succinate [Toprol XL -] 100 mg PO BID tab.sr.24h 03/27/19 Midodrine HCl [Proamatine -] 10 mg PO TID-MID tablet 03/27/19 Polyethylene Glycol 3350 [Miralax 17 gm PO BID bottle 03/27/19 119 gm Btl -] Ranolazine [Ranexa -] 500 mg PO DAILY tab 03/27/19 Rivaroxaban [Xarelto] 15 mg PO DAILY@1800 tablet 03/27/19 Abnormal Lab Results 08/14/19 08/14/19 08/14/19 23:00 23:00 23:00 MCV 96.1 H RDW 18.0 H Eosinophils % 6.2 H D Anion Gap 7 L BUN 22.0 H Random Glucose 120 H Troponin I 0.06 H Total Protein 6.0 L Albumin 2.4 L ASSESSMENT AND PLAN: 1. Chest pain/UTI - EKG shows Afib at 89/minute, RAD and ST-T wave changes in anterior and lateral leads. Troponin is mildly elevated. Will admit to telemetry to rule out ACS, get ECHO and cardiology consult. CXR shows cardiomegaly, pulmonary vascular congestion, unfolded aorta, RLL infiltrate/ compression atelectasis, right pleural effusion and elevated right hemidiaphragm. Will treat with IV lasix, restrict dietary salt intake and get dialy standing weight. Also has features of UTI - will treat with IV Rocephin pending culture report. Will continue comprehensive care for all of patients comorbid conditions. 2. Hypoalbuminemia - Possibly due to combined effects of proteinuria, malnutrition and inflammation associated with comorbid chronic conditions. Will ensure adequate dietary protein intake and also consult sock liner. 3. DM For now, we will hold the home diabetes drugs and implement sliding scale insulin regimen. Provide comprehensive diabetes care with patient teaching and counseling about the importance of adherence to prescribed diabetes regimen, euglycemia, eye care and foot care. 4. Polypharmacy - Will liaise with patient's PCP to discontinue medications that are not absolutely essential. 5. Hypertension - Restart suitable outpatient antihypertensive drugs when clinically appropriate. Revise regimen to ensure [id number] excellent BP control and counseling psychologist patient on the injurious effects of uncontrolled hypertension. Nonpharmacologic measures to control hypertension like weight loss , salt restriction and exercise discussed. Importance of adherence to treatment regimen and attainment of normotension emphasized. 6. DVT prophylaxis - On Xarelto for Afib 7. Advance directives - Full code
[2019-08-15 01:52] LABS: URINE APPEARANCE TURBID; URINE BILIRUBIN NEGATIVE (NEGATIVE); URINE COLOR YELLOW; URINE GLUCOSE (UA) NEGATIVE (NEGATIVE); URINE KETONE TRACE (NEGATIVE); URINE LEUK ESTERASE LARGE (NEGATIVE); URINE NITRITE POSITIVE (NEGATIVE); URINE PROTEIN 100 (NEGATIVE)
[2019-08-15 01:53] LABS: EPI CELLS 97.3 /HPF (0-5/HPF); HYALINE CASTS 3483.36 /lpf (0-8); URINE BACTERIA 5835.2 /hpf (NEGATIVE); URINE CRYSTALS RARE /hpf; URINE RBC 45-50 /hpf (0-4); URINE WBC 3938.3 /hpf (0-5); YEAST FEW (NEGATIVE)
[2019-08-15 02:50] LABS: N-TERMINAL BNP 2404.7 pg/ml (5-450)
--- NOTE | 2019-08-15 03:59 | HP ---
CHIEF COMPLAINT: PCP: HISTORY OF PRESENT ILLNESS: Ms. Shantell Alexis is an 84 year old female PMH of CAD( s/p PCI, CABG (2003)), HFpEF, HTN, DM, Hyperlipdemia, chronic right sided pleural effusions (s/p thoracocentesis), diverticulosis, gastritis, RESTREPO cirrhosis, and anxiety presenting to the [facility] ED due to "pain in [her] left arm and chest pains" that began "sometime" today. Pain began as pt was resting in bed. Left arm pain felt "like a knot" and she described her CP as a "tight" feeling. Pt reports she sat still to relieve the pain which did not make a difference. No aggravating factors identified. No other treatments tried. Ms. Alexis rated her arm and chest pain an 8/10 during the event and states it is now a 0/10 and has been relieved. An identical event occurred 6 months ago, when Ms. Alexis was admitted [facility]. pt denies sob, headache, dizziness, n/v. ER course was notable for: (1) + UA (2)trop 0.06 Recent Travel: denies PAST MEDICAL HISTORY: see HPI PAST SURGICAL HISTORY: denies Social History: Smoking:quit >30 years, 1 pk a week Alcohol:denies Drugs: denies Allergies pollen extracts Allergy (Unknown, Verified 02/01/19 18:48) HONEYDEW Allergy (Severe, Uncoded 02/01/19 18:48) Difficulty Breathing HAYFEVER,GRASS,POLLEN Allergy (Uncoded 02/01/19 18:48) HOME MEDICATIONS: Home Medications Medication Instructions Recorded Folic Acid - 400 mcg PO ASDIR 02/16/12 Furosemide [Lasix -] 20 mg PO DAILY 03/18/16 Glucosamine/D3/Boswellia Eda 1 tab PO BID 03/18/16 [Osteo Bi-Flex Caplet] Iron,Carbonyl [Feosol] 65 mg PO DAILY 03/18/16 Mometasone Furoate [Asmanex] 220 mcg IH BID PRN 03/18/16 Cyanocobalamin (Vitamin B-12) 1,000 mcg PO DAILY 02/01/19 [Vitamin B-12] Vitamin E 1 tab PO DAILY 02/01/19 Amiodarone HCl [Cordarone -] 200 mg PO DAILY tablet 03/27/19 Docusate Sodium [Colace -] 100 mg PO BID capsule 03/27/19 Insulin Sliding Scale [Novolog 1 vial SQ ACHS units 03/27/19 Vial Sliding Scale -] Polyethylene Glycol 3350 [Miralax 17 gm PO BID bottle 03/27/19 119 gm Btl -] Rivaroxaban [Xarelto] 15 mg PO DAILY@1800 tablet 03/27/19 Acetaminophen [Pain Relief] 650 mg PO PRN PRN 08/15/19 Albuterol 2.5/Ipratropium 0.5 1 neb NEB Q4H PRN 08/15/19 [Duoneb -] Famotidine [Pepcid -] 40 mg PO DAILY 08/15/19 Metoprolol Tartrate 50 mg PO DAILY 08/15/19 Ranolazine [Ranexa -] 500 mg PO BID 08/15/19 Silver Sulfadiazine [Silvadene] 1,000 gm TP DAILY 08/15/19 REVIEW OF SYSTEMS CONSTITUTIONAL: Absent: fever, chills, diaphoresis, generalized weakness, malaise, loss of appetite, weight change HEENT: Absent: rhinorrhea, nasal congestion, throat pain, throat swelling, difficulty swallowing, mouth swelling, ear pain, eye pain, visual changes CARDIOVASCULAR: Present: irregular heart rate, chest tightness Absent: chest pain, syncope, palpitations, irregular heart rate, lightheadedness , peripheral edema RESPIRATORY: Absent: cough, shortness of breath, dyspnea with exertion, orthopnea, wheezing, stridor, hemoptysis GASTROINTESTINAL: Absent: abdominal pain, abdominal distension, nausea, vomiting, diarrhea, constipation, melena, hematochezia GENITOURINARY: Absent: dysuria, frequency, urgency, hesitancy, hematuria, flank pain, genital pain MUSCULOSKELETAL: Present: L arm pain Absent: myalgia, arthralgia, joint swelling, back pain, neck pain SKIN: Absent: rash, itching, pallor HEMATOLOGIC/IMMUNOLOGIC: Absent: easy bleeding, easy bruising, lymphadenopathy, frequent infections ENDOCRINE: Absent: unexplained weight gain, unexplained weight loss, heat intolerance, cold intolerance NEUROLOGIC: Absent: headache, focal weakness or paresthesias, dizziness, unsteady gait, seizure, mental status changes, bladder or bowel incontinence PSYCHIATRIC: Absent: anxiety, depression, suicidal or homicidal ideation, hallucinations. PHYSICAL EXAMINATION Vital Signs - 24 hr 08/14/19 22:39 Temperature 96.5 F L Pulse Rate 71 Respiratory 16 Rate Blood Pressure 103/64 O2 Sat by Pulse 95 Oximetry (%) GENERAL: Awake, alert, and fully oriented, in no acute distress. HEAD: Normal with no signs of trauma. EYES: Pupils equal, round and reactive to light, extraocular movements intact EARS, NOSE, THROAT: oropharynx clear without exudates. Moist mucous membranes.appears dry NECK: Normal range of motion, supple without lymphadenopathy LUNGS: Breath sounds decreased at bases, minimal breath sounds at R lower base. No accessory muscle use. HEART: irregular rate and irregular rhythm, + S1 and S2 , + systolic murmur ABDOMEN: Soft, tender to deep palpation at RUQ, not distended, normoactive bowel sounds, no guarding, no rebound, no masses. MUSCULOSKELETAL: No CVA tenderness. UPPER EXTREMITIES: 2+ pulses, warm, well-perfused. No cyanosis. No clubbing. No peripheral edema. LOWER EXTREMITIES: 2+ pulses, warm, well-perfused. No calf tenderness. 1+ peripheral edema. NEUROLOGICAL: Cranial nerves II-XII intact. Normal speech. PSYCHIATRIC: Cooperative. Good eye contact. Appropriate mood and affect Laboratory Last Values WBC 5.5 K/mm3 (4.0-10.0) 08/14/19 23:00 RBC 3.68 M/mm3 (3.60-5.2) 08/14/19 23:00 Hgb 11.5 GM/dL (10.7-15.3) 08/14/19 23:00 Hct 35.4 % (32.4-45.2) D 08/14/19 23:00 MCV 96.1 fl (80-96) H 08/14/19 23:00 MCH 31.2 pg (25.7-33.7) 08/14/19 23:00 MCHC 32.5 g/dl (32.0-36.0) 08/14/19 23:00 RDW 18.0 % (11.6-15.6) H 08/14/19 23:00 Plt Count 333 K/MM3 (134-434) 08/14/19 23:00 MPV 8.2 fl (7.5-11.1) 08/14/19 23:00 Absolute Neuts (auto) 3.8 K/mm3 (1.5-8.0) 08/14/19 23:00 Neutrophils % 69.0 % (42.8-82.8) 08/14/19 23:00 Lymphocytes % 15.6 % (8-40) D 08/14/19 23:00 Monocytes % 8.3 % (3.8-10.2) 08/14/19 23:00 Eosinophils % 6.2 % (0-4.5) H D 08/14/19 23:00 Basophils % 0.9 % (0-2.0) 08/14/19 23:00 Nucleated RBC % 0 % (0-0) 08/14/19 23:00 PT with INR 11.30 SEC (9.7-13.0) 08/14/19 23:00 INR 0.96 (0.83-1.09) 08/14/19 23:00 PTT (Actin FS) 36.1 SECONDS (25.2-36.5) 08/14/19 23:00 Sodium 141 mmol/L (136-145) 08/14/19 23:00 Potassium 3.5 mmol/L (3.5-5.1) 08/14/19 23:00 Chloride 103 mmol/L (98-107) 08/14/19 23:00 Carbon Dioxide 31 mmol/L (21-32) 08/14/19 23:00 Anion Gap 7 MMOL/L (8-16) L 08/14/19 23:00 BUN 22.0 mg/dL (7-18) H 08/14/19 23:00 Creatinine 0.8 mg/dL (0.55-1.3) 08/14/19 23:00 Est GFR (CKD-EPI)AfAm 77.37 08/14/19 23:00 Est GFR (CKD-EPI)NonAf 66.76 08/14/19 23:00 Random Glucose 120 mg/dL (74-106) H 08/14/19 23:00 Calcium 9.4 mg/dL (8.5-10.1) 08/14/19 23:00 Total Bilirubin 0.5 mg/dL (0.2-1) 08/14/19 23:00 AST 17 U/L (15-37) 08/14/19 23:00 ALT 14 U/L (13-61) 08/14/19 23:00 Alkaline Phosphatase 101 U/L (45-117) 08/14/19 23:00 Troponin I 0.06 ng/ml (0.00-0.05) H 08/14/19 23:00 B-Natriuretic Peptide 2404.7 pg/ml (5-450) H 08/14/19 23:00 Total Protein 6.0 g/dl (6.4-8.2) L 08/14/19 23:00 Albumin 2.4 g/dl (3.4-5.0) L 08/14/19 23:00 Urine Color Yellow 08/15/19 01:05 Urine Appearance Turbid 08/15/19 01:05 Urine pH 6.0 (5.0-8.0) 08/15/19 01:05 Ur Specific Fitzpatrick 1.020 (1.010-1.035) 08/15/19 01:05 Urine Protein 100 (NEGATIVE) 08/15/19 01:05 Urine Glucose (UA) Negative (NEGATIVE) 08/15/19 01:05 Urine Ketones Trace (NEGATIVE) H 08/15/19 01:05 Urine Blood Large (NEGATIVE) 08/15/19 01:05 Urine Nitrite Positive (NEGATIVE) H 08/15/19 01:05 Urine Bilirubin Negative (NEGATIVE) 08/15/19 01:05 Urine Urobilinogen 1.0 mg/dL (0.2-1.0) 08/15/19 01:05 Ur Leukocyte Esterase Large (NEGATIVE) 08/15/19 01:05 Urine WBC (Auto) 3938.3 /hpf (0-5) 08/15/19 01:05 Urine RBC (Auto) 45-50 /hpf (0-4) 08/15/19 01:05 Urine Casts (Auto) 3483.36 /lpf (0-8) 08/15/19 01:05 U Pathogenic Cast Auto Negative /lpf (NEGATIVE) 08/15/19 01:05 U Epithel Cells (Auto) 97.3 /HPF (0-5/HPF) 08/15/19 01:05 Urine Crystals (Auto) Rare /hpf 08/15/19 01:05 Urine Bacteria (Auto) 5835.2 /hpf (NEGATIVE) 08/15/19 01:05 Urine Yeast (Auto) Few (NEGATIVE) 08/15/19 01:05 ASSESSMENT/PLAN: 84 year old female PMH of CAD( s/p PCI, CABG (2003)), HFpEF, HTN, DM, Hyperlipdemia, chronic right sided pleural effusions (s/p thoracocentesis), diverticulosis, gastritis, RESTREPO cirrhosis, and anxiety presenting to the ED for chest discomfort. pt is admitted to tele for r/o ACS R/o ACS, likely angina -initial trop 0.06,pending rpt -EKG in Afib, nonspecific changes, no ST elevations, will rpt - pt states symptoms resolved - consider rpt Echo if trop rises to r/o regional wall abnormality - Lexiscan 01/25: no ischemia, LVEF 48% -Cardio recs appreciated (Dr. Sage) R Pleural effusion 2/2 HFpEF vs hepatic hydrothorax -last thoracentesis in January 2019 -Pulm recs appreciated (Dr. Reid) UTI -(+) UA, pending cultures - will start ceftriaxone - bladder/ renal u/s HTN - c/w toprol, lasix DM -ISS, BGM -A1C AFib -on Xarelto -Amio 200mg, toprol 50 tid acute on chronic HFpEF; CAD s/p PCI, CABG -BNP >2000 -c/w lasix 40 daily -c/w toprol Gastritis -c/w ranitidine 150 daily COPD - c/w duonebs, albuterol, asmanex HLD -c/w atorvastatin 80 F/E/N -monitor lytes -NPO for possible cardiac intervention DVT ppx: on xarelto Dispo: admit to tele Visit type - Emergency Visit Emergency Visit: Yes ED Registration Date: 08/15/19 Care time: The patient presented to the Emergency Department on the above date and was hospitalized for further evaluation of their emergent condition. - New Patient This patient is new to me today: Yes - Critical Care Critical Care patient: No ATTENDING PHYSICIAN STATEMENT I saw and evaluated the patient. I reviewed the resident's note and discussed the case with the resident. I agree with the resident's findings and plan as documented. SUBJECTIVE: OBJECTIVE: ASSESSMENT AND PLAN:
[2019-08-15] MEDS ORDERED: ALBUTEROL SO4 2.5/IPRATROPIUM 0.5 INH SOL 3 ML VIAL.NEB. NEB PRN (04:38)
[2019-08-15] MEDS ORDERED: MOMETASONE FUROATE 220 MCG/IH INHALER IH PRN (04:38)
[2019-08-15] MEDS ORDERED: FOLIC ACID 1 MG TABLET (FP) PO SCH (04:45)
[2019-08-15] MEDS ORDERED: cefTRIAXone SODIUM 1 GM VIAL ONE (05:21)
[2019-08-15] MEDS ORDERED: CEFTRIAXONE 1 GM in DEXTROSE 5%-WATER - 50 ML IVPB ONE (05:30)
[2019-08-15 06:10] LABS: BASO % 1.3 % (0-2.0); EOS % 5.4 % (0-4.5); HEMATOCRIT 33.5 % (32.4-45.2); LYMPH % 16.6 % (8-40); MCH 31.1 pg (25.7-33.7); MCHC 32.8 g/dl (32.0-36.0); MONO % 8.1 % (3.8-10.2); NEUT % 68.6 % (42.8-82.8); PLATELET COUNT 305 K/MM3 (134-434); RBC 3.53 M/mm3 (3.60-5.2); RDW 18.1 % (11.6-15.6); WHITE BLOOD COUNT 5.1 K/mm3 (4.0-10.0)
[2019-08-15 06:42] LABS: ALBUMIN 2.3 g/dl (3.4-5.0); BILIRUBIN,TOTAL 0.5 mg/dL (0.2-1); BLOOD UREA NITROGEN 21.8 mg/dL (7-18); CALCIUM 9.4 mg/dL (8.5-10.1); CREATININE 0.7 mg/dL (0.55-1.3); MAGNESIUM 2.2 mg/dL (1.8-2.4); PHOSPHOROUS 2.8 mg/dL (2.5-4.9); POTASSIUM 3.4 mmol/L (3.5-5.1); TOT PROT 5.6 g/dl (6.4-8.2)
[2019-08-15] MEDS ORDERED: METOPROLOL TARTRATE 50 MG TABLET (FP) ONE (06:45)
[2019-08-15] MEDS: METOPROLOL TARTRATE 50 MG TABLET (FP) PO SCH ×3 (06:56→21:28)
[2019-08-15] MEDS ORDERED: POTASSIUM CHLORIDE TABS 20 MEQ TABLET.ER (FP) PO ONE (07:24)
[2019-08-15] MEDS: INSULIN SLIDING SCALE (NOVOLOG) 1 VIAL SQ SCH ×4 (07:49→21:27)
--- NOTE | 2019-08-15 09:29 | EKG ---
Test Reason : Blood Pressure : / mmHG Vent. Rate : 089 BPM Atrial Rate : 077 BPM P-R Int : 000 ms QRS Dur : 094 ms QT Int : 398 ms P-R-T Axes : 000 093 180 degrees QTc Int : 484 ms ATRIAL FIBRILLATION RIGHTWARD AXIS LOW VOLTAGE QRS CANNOT RULE OUT ANTERIOR INFARCT , AGE UNDETERMINED ABNORMAL ECG WHEN COMPARED WITH ECG OF 03-MAR-2019 11:46, MINIMAL CRITERIA FOR ANTERIOR INFARCT ARE NOW PRESENT Confirmed by Robbi Michael MD ([id number]) on 08/15/2019 9:28:56 AM Referred By: Confirmed By:Robbi Michael MD
[2019-08-15] MEDS ORDERED: GLUCOSAMINE PO SCH (10:00)
[2019-08-15] MEDS ORDERED: [UNRECOGNIZED DRUG - OTHER] PO SCH (10:00)
[2019-08-15] MEDS ORDERED: PATIENT'S OWN MEDICATION (NON-FORMULARY) (Famotidine 40 MG) PO SCH (10:00)
[2019-08-15] MEDS ORDERED: D3 PO SCH (10:00)
[2019-08-15] MEDS ORDERED: BOSWELLIA SERRA PO SCH (10:00)
--- NOTE | 2019-08-15 10:33 | CON.CARD ---
Consult Consult Specialty:: Cardiology Referred by:: Hospitalist Reason for Consultation:: Cardiac evaluation - History of Present Illness Chief Complaint: Chest pain History of Present Illness: Patient is an 84 year old female well known to our service with underlying history of CAD s/p PCI, CABG (2003), AF currently on DOAC (Xarelto), HTN, hypercholesterolemia, history of pleural effusion s/p thoracentesis, diverticular disease, anemia, diastolic heart failure and COPD who presents with chest discomflrt and left arm pain. Since then it has resolved and currently she appears comfortable. Troponin was elevated to 0.59. She denies paroxysmal nocturnal dyspnea or orthopnea. She denies shortness of breath or palpitations. She denies fever or chills. She denies nausea, vomiting diarrhea or abdominal pain. She denies headache or lightheadedness. - History Source History Provided By: Patient, Medical Record Limitations to Obtaining History: No Limitations - Past Medical History Cardio/Vascular: Yes: AFIB, CAD, CHF, HTN, Hyperlipdemia Pulmonary: Yes: COPD, Other (Stable lung nodules) Gastrointestinal: Yes: Diverticulosis, Gastritis Hepatobiliary: Yes: Cirrhosis (RESTREPO related), Cholelithiasis, Other (Mevacor induced hepatitis in 1994) Heme/Onc: Yes: Anemia Psych: Yes: Anxiety Endocrine: Yes: Diabetes Mellitus Additional Medical History: Mesenteric mass of undetermined etiology since 2016 - Past Surgical History Past Surgical History: Yes: CABG, Hysterectomy - Alcohol/Substance Use Hx Alcohol Use: No History of Substance Use: reports: None - Smoking History Smoking history: Unknown if ever smoked Have you smoked in the past 12 months: No Aproximately how many cigarettes per day: 0 If you are a former smoker, when did you quit?: 1981 - Social History Usual Living Arrangement: Alone ADL: Independent 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 History of Recent Travel: No Home Medications - Allergies Allergies/Adverse Reactions: Allergies Allergy/AdvReac Type Severity Reaction Status Date / Time pollen extracts Allergy Unknown Verified 02/01/19 18:48 HONEYDEW Allergy Severe Difficulty Uncoded 02/01/19 18:48 Breathing HAYFEVER,GRASS,POLLEN Allergy Uncoded 02/01/19 18:48 - Home Medications Home Medications: Ambulatory Orders Folic Acid - 400 mcg PO ASDIR 02/16/12 Furosemide [Lasix -] 20 mg PO DAILY 03/18/16 Glucosamine/D3/Boswellia Eda [Osteo Bi-Flex Caplet] 1 tab PO BID 03/18/16 Iron,Carbonyl [Feosol] 65 mg PO DAILY 03/18/16 Mometasone Furoate [Asmanex] 220 mcg IH BID PRN 03/18/16 Cyanocobalamin (Vitamin B-12) [Vitamin B-12] 1,000 mcg PO DAILY 02/01/19 Vitamin E 1 tab PO DAILY 02/01/19 Amiodarone HCl [Cordarone -] 200 mg PO DAILY tablet 03/27/19 Docusate Sodium [Colace -] 100 mg PO BID capsule 03/27/19 Insulin Sliding Scale [Novolog Vial Sliding Scale -] 1 vial SQ ACHS units 03/27 Polyethylene Glycol 3350 [Miralax 119 gm Btl -] 17 gm PO BID bottle 03/27/19 Rivaroxaban [Xarelto] 15 mg PO DAILY@1800 tablet 03/27/19 Acetaminophen [Pain Relief] 650 mg PO PRN PRN 08/15/19 Albuterol 2.5/Ipratropium 0.5 [Duoneb -] 1 neb NEB Q4H PRN 08/15/19 Atorvastatin Calcium 40 mg PO DAILY 08/15/19 Famotidine [Pepcid -] 40 mg PO DAILY 08/15/19 Metoprolol Tartrate 50 mg PO DAILY 08/15/19 Ranitidine HCl [Acid Slubber Operator] 150 mg PO DAILY 08/15/19 Ranolazine [Ranexa -] 500 mg PO BID 08/15/19 Silver Sulfadiazine [Silvadene] 1,000 gm TP DAILY 08/15/19 Family Medical History Family Hx Cardiac Disorders: Mother Family Hx Diabetes: Mother Review of Systems - Review of Systems Constitutional: denies: Chills, Fever Cardiovascular: reports: Chest Pain. denies: Palpitations, Shortness of Breath Respiratory: denies: Cough, Hemoptysis, Orthopnea, PND, SOB, SOB on Exertion Gastrointestinal: denies: Abdominal Pain, Constipation, Diarrhea, Melena, Nausea , Rectal Bleeding, Vomiting Genitourinary: denies: Dysuria, Hematuria Neurological: denies: Dizziness, Headache, Seizure, Syncope Vital Signs: Vital Signs Temperature 98.1 F 08/15/19 06:00 Pulse Rate 96 H 08/15/19 06:00 Respiratory Rate 15 08/15/19 06:00 Blood Pressure 104/73 08/15/19 06:00 O2 Sat by Pulse Oximetry (%) 95 08/15/19 06:00 Eyes: Yes: PERRL HENT: Yes: Atraumatic Neck: Yes: Supple Respiratory: Yes: CTA Bilaterally Gastrointestinal: Yes: Normal Bowel Sounds, Soft. No: Tenderness Cardiovascular: Yes: Pulse Irregular JVD: No Heart Sounds: Yes: S1, S2. No: Gallop Murmur: Yes: Systolic Murmur, Grade 1 Edema: No - Other Data Labs, Other Data: CBC, BMP 08/15/19 05:25 08/15/19 05:25 INR, PTT INR 0.96 (0.83-1.09) 08/14/19 23:00 Troponin, BNP 08/14/19 08/14/19 08/15/19 23:00 23:00 05:25 Troponin I 0.06 H 0.59 H B-Natriuretic Peptide 2404.7 H Laboratory Results - last 24 hr 08/14/19 08/14/19 08/14/19 23:00 23:00 23:00 WBC 5.5 RBC 3.68 Hgb 11.5 Hct 35.4 D MCV 96.1 H MCH 31.2 MCHC 32.5 RDW 18.0 H Plt Count 333 MPV 8.2 Absolute Neuts (auto) 3.8 Neutrophils % 69.0 Lymphocytes % 15.6 D Monocytes % 8.3 Eosinophils % 6.2 H D Basophils % 0.9 Nucleated RBC % 0 PT with INR 11.30 INR 0.96 PTT (Actin FS) 36.1 Sodium 141 Potassium 3.5 Chloride 103 Carbon Dioxide 31 Anion Gap 7 L BUN 22.0 H Creatinine 0.8 Est GFR (CKD-EPI)AfAm 77.37 Est GFR (CKD-EPI)NonAf 66.76 POC Glucometer Random Glucose 120 H Calcium 9.4 Phosphorus Magnesium Total Bilirubin 0.5 AST 17 ALT 14 Alkaline Phosphatase 101 Troponin I B-Natriuretic Peptide 2404.7 H Total Protein 6.0 L Albumin 2.4 L Triglycerides Cholesterol Total LDL Cholesterol HDL Cholesterol TSH Free T4 Urine Color Urine Appearance Urine pH Ur Specific [place] Urine Protein Urine Glucose (UA) Urine Ketones Urine Blood Urine Nitrite Urine Bilirubin Urine Urobilinogen Ur Leukocyte Esterase Urine WBC (Auto) Urine RBC (Auto) Urine Casts (Auto) U Pathogenic Cast Auto U Epithel Cells (Auto) Urine Crystals (Auto) Urine Bacteria (Auto) Urine Yeast (Auto) 08/14/19 08/15/19 08/15/19 23:00 01:05 05:25 WBC 5.1 RBC 3.53 L Hgb 11.0 Hct 33.5 MCV 95.0 MCH 31.1 MCHC 32.8 RDW 18.1 H Plt Count 305 MPV 8.0 Absolute Neuts (auto) 3.5 Neutrophils % 68.6 Lymphocytes % 16.6 Monocytes % 8.1 Eosinophils % 5.4 H Basophils % 1.3 Nucleated RBC % 0 PT with INR INR PTT (Actin FS) Sodium Potassium Chloride Carbon Dioxide Anion Gap BUN Creatinine Est GFR (CKD-EPI)AfAm Est GFR (CKD-EPI)NonAf POC Glucometer Random Glucose Calcium Phosphorus Magnesium Total Bilirubin AST ALT Alkaline Phosphatase Troponin I 0.06 H B-Natriuretic Peptide Total Protein Albumin Triglycerides Cholesterol Total LDL Cholesterol HDL Cholesterol TSH Free T4 Urine Color Yellow Urine Appearance Turbid Urine pH 6.0 Ur Specific [place] 1.020 Urine Protein 100 Urine Glucose (UA) Negative Urine Ketones Trace H Urine Blood Large Urine Nitrite Positive H Urine Bilirubin Negative Urine Urobilinogen 1.0 Ur Leukocyte Esterase Large Urine WBC (Auto) 3938.3 Urine RBC (Auto) 45-50 Urine Casts (Auto) 3483.36 U Pathogenic Cast Auto Negative U Epithel Cells (Auto) 97.3 Urine Crystals (Auto) Rare Urine Bacteria (Auto) 5835.2 Urine Yeast (Auto) Few 08/15/19 08/15/19 05:25 06:59 WBC RBC Hgb Hct MCV MCH MCHC RDW Plt Count MPV Absolute Neuts (auto) Neutrophils % Lymphocytes % Monocytes % Eosinophils % Basophils % Nucleated RBC % PT with INR INR PTT (Actin FS) Sodium 140 Potassium 3.4 L Chloride 105 Carbon Dioxide 28 Anion Gap 7 L BUN 21.8 H Creatinine 0.7 Est GFR (CKD-EPI)AfAm 90.93 Est GFR (CKD-EPI)NonAf 78.45 POC Glucometer 142 Random Glucose 120 H Calcium 9.4 Phosphorus 2.8 Magnesium 2.2 Total Bilirubin 0.5 AST 16 ALT 12 L Alkaline Phosphatase 95 Troponin I 0.59 H B-Natriuretic Peptide Total Protein 5.6 L Albumin 2.3 L Triglycerides 165 H Cholesterol 155 Total LDL Cholesterol 66 HDL Cholesterol 59 TSH 20.30 H Free T4 0.67 L Urine Color Urine Appearance Urine pH Ur Specific [place] Urine Protein Urine Glucose (UA) Urine Ketones Urine Blood Urine Nitrite Urine Bilirubin Urine Urobilinogen Ur Leukocyte Esterase Urine WBC (Auto) Urine RBC (Auto) Urine Casts (Auto) U Pathogenic Cast Auto U Epithel Cells (Auto) Urine Crystals (Auto) Urine Bacteria (Auto) Urine Yeast (Auto) AF with ST-T abnormality in lateral leads Imaging - Results Chest X-ray: Report Reviewed (Increased fullness of right hilum and atelectasis) EKG: Report Reviewed Problem List - Problems (1) ACS (acute coronary syndrome) Code(s): I24.9 - ACUTE ISCHEMIC HEART DISEASE, UNSPECIFIED (2) Chronic atrial fibrillation Code(s): I48.2 - CHRONIC ATRIAL FIBRILLATION * DO NOT USE * (3) Zweov-ti-diszreg kidney injury Code(s): N17.9 - ACUTE KIDNEY FAILURE, UNSPECIFIED; N18.9 - CHRONIC KIDNEY DISEASE, UNSPECIFIED Qualifiers: Chronic kidney disease stage: stage 2 (mild) (4) Anemia Code(s): D64.9 - ANEMIA, UNSPECIFIED Qualifiers: Anemia type: unspecified type Qualified Code(s): D64.9 - Anemia, unspecified (5) CHF (congestive heart failure) Code(s): I50.9 - HEART FAILURE, UNSPECIFIED Qualifiers: Heart failure type: diastolic Heart failure chronicity: chronic Qualified Code(s): I50.32 - Chronic diastolic (congestive) heart failure (6) CKD (chronic kidney disease) Code(s): N18.9 - CHRONIC KIDNEY DISEASE, UNSPECIFIED (7) Chest pain Code(s): R07.9 - CHEST PAIN, UNSPECIFIED Qualifiers: Chest pain type: chest pain due to myocardial ischemia (8) Diabetes Code(s): E11.9 - TYPE 2 DIABETES MELLITUS WITHOUT COMPLICATIONS Qualifiers: Diabetes mellitus type: type 2 Diabetes mellitus termination clerk insulin use: without termination clerk use (9) Diverticulosis Code(s): K57.90 - DVRTCLOS OF INTEST, PART UNSP, W/O PERF OR ABSCESS W/O BLEED (10) Hx of CABG Code(s): Z95.1 - PRESENCE OF AORTOCORONARY BYPASS GRAFT (11) Hyperlipidemia Code(s): E78.5 - HYPERLIPIDEMIA, UNSPECIFIED Qualifiers: Hyperlipidemia type: pure hypercholesterolemia Qualified Code(s): E78.00 - Pure hypercholesterolemia, unspecified; E78.0 - Pure hypercholesterolemia (12) Hypertension Code(s): I10 - ESSENTIAL (PRIMARY) HYPERTENSION Qualifiers: Hypertension type: essential hypertension Qualified Code(s): I10 - Essential (primary) hypertension Assessment/Plan 1. Chest pain with underlying CAD s/p PCI, CABG, elevated troponin suggests NSTEMI vs. demand subendocardial ischemia 2. Persistent AF with variable ventricular response, [id number] score of 7 on DOAC 3. T2DM 4. Acute on chronic LV diastolic failure with history of pleural effusion in the past 5. HTN 6. Hypercholesterolemia 7. COPD 8. RESTREPO with cirrhosis 9. Chronic anemia with history of diverticular disease and gastritis 10. CKD 11. Abnormal TSH 12. Mild aortic stenosis PLAN: 1. Continue Metoprolol Tartrate 50 mg TID as tolerated 2. Continue Amiodarone 200 mg QD as tolerated. Continue Ranexa 500 mg BID (may uptitrate to 1000 mg BID is tolerated) 3. Continue Xarelto 15 mg QD for now. Trend troponin to document peak 4. ASA 81 mg QD 5. Atorvastatin 40 mg QHS 6. Echocardiography to assess LV/RV and valvular function Further plans are to follow Jose Raul Brannon MD
[2019-08-15] MEDS ORDERED: ASPIRIN 81 MG CHEWABLE TABLETS PO ONE (10:53)
[2019-08-15] MEDS: FERROUS SO4 325 MG TABLET (FP) PO SCH (11:00)
[2019-08-15] MEDS: DOCUSATE SODIUM 100 MG CAPSULE (FP) PO SCH ×2 (11:00→21:28)
[2019-08-15] MEDS: FAMOTIDINE 20 MG TABLET PO SCH (11:00)
[2019-08-15] MEDS: AMIODARONE HCL 200 MG TABLET PO SCH (11:00)
[2019-08-15] MEDS: RANOLAZINE E.R. 500 MG TABLET (FP) PO SCH ×2 (11:00→21:28)
[2019-08-15] MEDS: SILVER SULFADIAZINE 1% TOP CREAM 50 GM JAR TP SCH (11:45)
--- NOTE | 2019-08-15 13:51 | PN ---
Teaching Attending Note Name of Resident: Chyna Martin ATTENDING PHYSICIAN STATEMENT I saw and evaluated the patient. I reviewed the resident's note and discussed the case with the resident. I agree with the resident's findings and plan as documented. SUBJECTIVE: Reports Cp in L sided chest. pressure like/ No SOB , no palpitations. she rerpots that her pain is still there since Wednesday, while she reported to residents it had resolved . OBJECTIVE: NAD , awake, alert, cooperative CV; RRR, 2/6 SM atRUSB, 3/6 SM at LLSB. Lungs: decreased breath sounds at bases , but clear. Abd: TTP in RLQ. no rebound tenderness or guarding. Ext : trace edema on legs and thighs ASSESSMENT AND PLAN: 84 y/o lady with h/o CAD ,s/p CABG, Afib , HFpEF, Mid-mesenteric mass, Pleural effusion (s/p thoracentesis), Stable lung nodules, HTN, HLD, COPD, NIDDM and Peripheral neuropathy. She presented with CP . She was found to have acute diastolic CHF and elevated troponin 1- CP: patient gives different stories and not sure about correct description . EKG with sinus rhythm, L axis, TWI in lateral leads . trop contto trend up . - Not sure if CP + elevated trop is NSTEMI or demand ischemia - discussed with card if heparin gtt is indicated, but Recs are to monitor trop for now and cont with xarelto - load with asa. cont asa 81 mg daily - Cont statin - Cont BB. - Further Recs from card appreciated 2- Acute on chronic diastolic heart failure: -received lasix, will reevaluate tomorrow - weight and I&Os - echo 3- Possible UTI: significant pyuria + RLQ tenderness. - cont ceftriaxone - follow up urine cx 4- Hypokalemia: replaced. will recheck 5- Elevated TSH: will repeat. if still elevated, will try to avoid any hormone replacement in light of suspected NSTEMi and rising trop. - follow as out pt 6- h/o A fib: cont xarelto, amio, and BB. dispo: HLOC
--- NOTE | 2019-08-15 14:15 | CON.PULM ---
Consult Consult Specialty:: PULMONARY Referred by:: Dr Walls Reason for Consultation:: pleural effusion - History of Present Illness Chief Complaint: chest pain History of Present Illness: 84yo female with h/o HTN, hypercholesterolemia, COPD, CAD s/p CABG, atrial fibrillation, LV diastolic dysfunction who was admitted with chest pain radiating to left arm. Denies shortness of breath, cough or wheezing. No leg swelling, paroxysmal nocturnal dyspnea but sleeps at an incline. No fevers, chills or sweats. CXR showing right pleural effusion increased from prior. Has been tapped last in February 2019 which showed mixed transudate/exudate. - History Source History Provided By: Patient, Family Member Limitations to Obtaining History: No Limitations - Past Medical History Cardio/Vascular: Yes: AFIB, CAD, CHF, HTN, Hyperlipdemia Pulmonary: Yes: COPD, Other (Stable lung nodules) Gastrointestinal: Yes: Diverticulosis, Gastritis Hepatobiliary: Yes: Cirrhosis (RESTREPO related), Cholelithiasis, Other (Mevacor induced hepatitis in 1994) Psych: Yes: Anxiety Endocrine: Yes: Diabetes Mellitus Additional Medical History: Mesenteric mass of undetermined etiology since 2016 - Past Surgical History Past Surgical History: Yes: CABG, Hysterectomy - Alcohol/Substance Use Hx Alcohol Use: No History of Substance Use: reports: None - Smoking History Smoking history: Unknown if ever smoked Have you smoked in the past 12 months: No Aproximately how many cigarettes per day: 0 If you are a former smoker, when did you quit?: 1981 - Social History Usual Living Arrangement: Alone ADL: Independent 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 History of Recent Travel: No Home Medications - Allergies Allergies/Adverse Reactions: Allergies Allergy/AdvReac Type Severity Reaction Status Date / Time pollen extracts Allergy Unknown Verified 02/01/19 18:48 HONEYDEW Allergy Severe Difficulty Uncoded 02/01/19 18:48 Breathing HAYFEVER,GRASS,POLLEN Allergy Uncoded 02/01/19 18:48 - Home Medications Home Medications: Ambulatory Orders Folic Acid - 400 mcg PO ASDIR 02/16/12 Furosemide [Lasix -] 20 mg PO DAILY 03/18/16 Glucosamine/D3/Boswellia Eda [Osteo Bi-Flex Caplet] 1 tab PO BID 03/18/16 Iron,Carbonyl [Feosol] 65 mg PO DAILY 03/18/16 Mometasone Furoate [Asmanex] 220 mcg IH BID PRN 03/18/16 Cyanocobalamin (Vitamin B-12) [Vitamin B-12] 1,000 mcg PO DAILY 02/01/19 Vitamin E 1 tab PO DAILY 02/01/19 Amiodarone HCl [Cordarone -] 200 mg PO DAILY tablet 03/27/19 Docusate Sodium [Colace -] 100 mg PO BID capsule 03/27/19 Insulin Sliding Scale [Novolog Vial Sliding Scale -] 1 vial SQ ACHS units 03/27 Polyethylene Glycol 3350 [Miralax 119 gm Btl -] 17 gm PO BID bottle 03/27/19 Rivaroxaban [Xarelto] 15 mg PO DAILY@1800 tablet 03/27/19 Acetaminophen [Pain Relief] 650 mg PO PRN PRN 08/15/19 Albuterol 2.5/Ipratropium 0.5 [Duoneb -] 1 neb NEB Q4H PRN 08/15/19 Atorvastatin Calcium 40 mg PO DAILY 08/15/19 Famotidine [Pepcid -] 40 mg PO DAILY 08/15/19 Metoprolol Tartrate 50 mg PO DAILY 08/15/19 Ranitidine HCl [Acid Office Nurse] 150 mg PO DAILY 08/15/19 Ranolazine [Ranexa -] 500 mg PO BID 08/15/19 Silver Sulfadiazine [Silvadene] 1,000 gm TP DAILY 08/15/19 Review of Systems - Review of Systems Constitutional: denies: Chills, Fever Eyes: denies: Recent Change in Vision HENT: denies: Nasal Congestion, Throat Pain Neck: denies: Stiffness, Tenderness Cardiovascular: reports: Chest Pain. denies: Edema, Palpitations, Shortness of Breath Respiratory: denies: Cough, Hemoptysis, Wheezing Gastrointestinal: denies: Abdominal Pain, Nausea, Vomiting Genitourinary: denies: Dysuria, Hematuria Neurological: denies: Headache Endocrine: denies: Unexplained Weight Loss Physical Exam Vital Sings: Vital Signs Temperature 98.1 F 08/15/19 06:00 Pulse Rate 96 H 08/15/19 06:00 Respiratory Rate 15 08/15/19 06:00 Blood Pressure 104/73 08/15/19 06:00 O2 Sat by Pulse Oximetry (%) 95 08/15/19 06:00 Constitutional: Yes: Calm Eyes: Yes: Conjunctiva Clear, EOM Intact HENT: Yes: Atraumatic, Normocephalic Neck: Yes: Supple, Trachea Midline Cardiovascular: Yes: Pulse Irregular Respiratory: Yes: Diminished (decreased breath sounds right base) ...Clubbing: No Gastrointestinal: Yes: Normal Bowel Sounds, Soft. No: Tenderness Edema: No Labs: CBC, BMP 08/15/19 05:25 08/15/19 05:25 Imaging - Results Chest X-ray: Report Reviewed, Image Reviewed (right effusion) Assessment/Plan Chest Pain r/o NSTEMI Acute on Chronic Diastolic Heart Failure Pleural Effusion likely from above Atrial Fibrillation Aortic Stenosis COPD Liver Cirrhosis HTN CKD Hypercholesterolemia - trend cardiac enzymes - echocardiogram - continue anticoagulation - rate controlled - pleural fluid studies in the past have been mixed with elevated protein but low LDH - would monitor effusion with diuresis - can defer thoracentesis at this time as pt asymptomatic from effusion Thank you for this consult Alban Reid MD
--- NOTE | 2019-08-15 14:43 | EKG ---
Test Reason : Blood Pressure : / mmHG Vent. Rate : 082 BPM Atrial Rate : 070 BPM P-R Int : 000 ms QRS Dur : 098 ms QT Int : 402 ms P-R-T Axes : 000 091 213 degrees QTc Int : 469 ms ATRIAL FIBRILLATION RIGHTWARD AXIS LOW VOLTAGE QRS ABNORMAL ECG WHEN COMPARED WITH ECG OF 14-AUG-2019 23:13, MINIMAL CRITERIA FOR ANTERIOR INFARCT ARE NO LONGER PRESENT Confirmed by Corey Bowman ([id number]) on 08/15/2019 2:43:15 PM Referred By: Sarthak NOLAN Confirmed By:Corey Bowman
--- NOTE | 2019-08-15 15:40 | ECHO ---
Name: MILTON WYMAN Exam:Adult Echocardiogram Study Date: 08/15/2019 02:56 PM Age: 84 yrs Height: 66 in Weight: 140 lb BSA: 1.7 m2 MMode/2D Measurements & Calculations IVSd: 1.7 cm Ao root diam: 3.1 cm LVIDd: 2.1 cm LA dimension: 4.2 cm LVIDs: 1.7 cm ACS: 0.96 cm LVPWd: 0.98 cm EDV(Teich): 14.0 ml LVOT diam: 1.4 cm ESV(Teich): 8.1 ml RV S Ulises: 8.5 cm/sec Doppler Measurements & Calculations MV E max ulises: 103.7 cm/sec MVA(VTI): 0.85 cm2 MV A max ulises: 33.1 cm/sec MV V2 max: 105.1 cm/sec MV E/A: 3.1 MV max P.4 mmHg MV dec time: 0.14 sec MV V2 mean: 38.4 cm/sec MV mean P.92 mmHg MV V2 VTI: 17.6 cm Ao V2 max: 169.4 cm/sec LV V1 max P.67 mmHg Ao max P.5 mmHg LV V1 mean P.48 mmHg Ao V2 mean: 129.7 cm/sec LV V1 max: 41.0 cm/sec Ao mean P.2 mmHg LV V1 mean: 33.8 cm/sec Ao V2 VTI: 32.4 cm LV V1 VTI: 9.3 cm LIZ(I,D): 0.46 cm2 LIZ(V,D): 0.39 cm2 MR max ulises: 398.2 cm/sec SV(LVOT): 15.0 ml MR max P.4 mmHg TR max ulises: 207.6 cm/sec PA V2 max: 42.4 cm/sec TR max P.5 mmHg PA max P.72 mmHg PI end-d ulises: 100.8 cm/sec Med Peak E' Ulises: 7.2 cm/sec Med E/e': 14.4 Lat Peak E' Ulises: 6.6 cm/sec Lat E/e': 15.6 Procedure The study was technically difficult with many images being suboptimal in quality. Left Ventricle There is moderate asymmetric left ventricular hypertrophy. The left ventricular ejection fraction is normal. Ejection Fraction = 55%. Right Ventricle The right ventricle is mildly dilated. The right ventricular systolic function is moderately reduced. Atria The left atrium is mildly dilated. The right atrium is mildly dilated. Mitral Valve The mitral valve is normal in structure and function. There is mild mitral regurgitation. Tricuspid Valve The tricuspid valve is normal in structure and function. There is mild tricuspid regurgitation. Right ventricular systolic pressure is normal. Aortic Valve There is moderate aortic sclerosis.;. Mild valvular aortic stenosis. Pulmonic Valve The pulmonic valve is not well visualized. Great Vessels The aortic root is not well visualized. Pericardium/Pleura There is no pericardial effusion. Interpretation Summary The study was technically difficult with many images being suboptimal in quality. There is moderate asymmetric left ventricular hypertrophy. The right ventricle is mildly dilated. The right ventricular systolic function is moderately reduced. Right ventricular systolic pressure is normal. Mild valvular aortic stenosis. Compared to study of 02/02/19, no significant changes are seen. Corey Bowman 08/15/2019 03:39 PM
[2019-08-15] MEDS: RIVAROXABAN 15 MG TABLET PO SCH (17:59)
[2019-08-15] MEDS: FUROSEMIDE 40 MG/4 ML INJECTABLE VIAL IVPUSH SCH (17:59)
--- NOTE | 2019-08-15 18:53 | PN ---
<María Casarez S - Last Filed: 08/15/19 18:15> Physical Exam: SUBJECTIVE: Patient seen and examined. Denies current chest pain, SOB, abd pain , fever, chills. No acute events overnight. OBJECTIVE: Vital Signs Period Temp Pulse Resp BP Sys/Cortes Pulse Ox Last 24 Hr 96.5 F-98.3 F 69-96 15-20 103-114/47-82 95-99 GENERAL: The patient is awake, alert, and fully oriented, in no acute distress. HEAD: Normal with no signs of trauma. EYES: EOMI, no scleral icterus, no ptosis ENT: MMM NECK: supple, trachea midline LUNGS: Diminished breath sounds R>L, no accessory muscle use HEART: RRR, murmur noted ABDOMEN: Soft, nondistended, normoactive bowel sounds, no guarding, no rebound. mild tenderness to palpation over RLQ EXTREMITIES: 2+ pulses, warm, well-perfused, no edema NEUROLOGICAL: Normal speech, gait not observed. PSYCH: Normal mood, normal affect. SKIN: Warm, dry, normal turgor, no rashes or lesions noted. Stage 1 sacral ulcer , with small area of skin break, no evidence of infection Laboratory Results - last 24 hr 08/14/19 08/14/19 08/14/19 23:00 23:00 23:00 WBC 5.5 RBC 3.68 Hgb 11.5 Hct 35.4 D MCV 96.1 H MCH 31.2 MCHC 32.5 RDW 18.0 H Plt Count 333 MPV 8.2 Absolute Neuts (auto) 3.8 Neutrophils % 69.0 Lymphocytes % 15.6 D Monocytes % 8.3 Eosinophils % 6.2 H D Basophils % 0.9 Nucleated RBC % 0 PT with INR 11.30 INR 0.96 PTT (Actin FS) 36.1 Sodium 141 Potassium 3.5 Chloride 103 Carbon Dioxide 31 Anion Gap 7 L BUN 22.0 H Creatinine 0.8 Est GFR (CKD-EPI)AfAm 77.37 Est GFR (CKD-EPI)NonAf 66.76 POC Glucometer Random Glucose 120 H Calcium 9.4 Phosphorus Magnesium Total Bilirubin 0.5 AST 17 ALT 14 Alkaline Phosphatase 101 Creatine Kinase Troponin I B-Natriuretic Peptide 2404.7 H Total Protein 6.0 L Albumin 2.4 L Triglycerides Cholesterol Total LDL Cholesterol HDL Cholesterol TSH Free T4 Urine Color Urine Appearance Urine pH Ur Specific Crystal Urine Protein Urine Glucose (UA) Urine Ketones Urine Blood Urine Nitrite Urine Bilirubin Urine Urobilinogen Ur Leukocyte Esterase Urine WBC (Auto) Urine RBC (Auto) Urine Casts (Auto) U Pathogenic Cast Auto U Epithel Cells (Auto) Urine Crystals (Auto) Urine Bacteria (Auto) Urine Yeast (Auto) 08/14/19 08/15/19 08/15/19 23:00 01:05 05:25 WBC 5.1 RBC 3.53 L Hgb 11.0 Hct 33.5 MCV 95.0 MCH 31.1 MCHC 32.8 RDW 18.1 H Plt Count 305 MPV 8.0 Absolute Neuts (auto) 3.5 Neutrophils % 68.6 Lymphocytes % 16.6 Monocytes % 8.1 Eosinophils % 5.4 H Basophils % 1.3 Nucleated RBC % 0 PT with INR INR PTT (Actin FS) Sodium Potassium Chloride Carbon Dioxide Anion Gap BUN Creatinine Est GFR (CKD-EPI)AfAm Est GFR (CKD-EPI)NonAf POC Glucometer Random Glucose Calcium Phosphorus Magnesium Total Bilirubin AST ALT Alkaline Phosphatase Creatine Kinase Troponin I 0.06 H B-Natriuretic Peptide Total Protein Albumin Triglycerides Cholesterol Total LDL Cholesterol HDL Cholesterol TSH Free T4 Urine Color Yellow Urine Appearance Turbid Urine pH 6.0 Ur Specific Crystal 1.020 Urine Protein 100 Urine Glucose (UA) Negative Urine Ketones Trace H Urine Blood Large Urine Nitrite Positive H Urine Bilirubin Negative Urine Urobilinogen 1.0 Ur Leukocyte Esterase Large Urine WBC (Auto) 3938.3 Urine RBC (Auto) 45-50 Urine Casts (Auto) 3483.36 U Pathogenic Cast Auto Negative U Epithel Cells (Auto) 97.3 Urine Crystals (Auto) Rare Urine Bacteria (Auto) 5835.2 Urine Yeast (Auto) Few 08/15/19 08/15/19 08/15/19 05:25 06:59 12:00 WBC RBC Hgb Hct MCV MCH MCHC RDW Plt Count MPV Absolute Neuts (auto) Neutrophils % Lymphocytes % Monocytes % Eosinophils % Basophils % Nucleated RBC % PT with INR INR PTT (Actin FS) Sodium 140 Potassium 3.4 L Chloride 105 Carbon Dioxide 28 Anion Gap 7 L BUN 21.8 H Creatinine 0.7 Est GFR (CKD-EPI)AfAm 90.93 Est GFR (CKD-EPI)NonAf 78.45 POC Glucometer 142 108 Random Glucose 120 H Calcium 9.4 Phosphorus 2.8 Magnesium 2.2 Total Bilirubin 0.5 AST 16 ALT 12 L Alkaline Phosphatase 95 Creatine Kinase Troponin I 0.59 H B-Natriuretic Peptide Total Protein 5.6 L Albumin 2.3 L Triglycerides 165 H Cholesterol 155 Total LDL Cholesterol 66 HDL Cholesterol 59 TSH 20.30 H Free T4 0.67 L Urine Color Urine Appearance Urine pH Ur Specific Crystal Urine Protein Urine Glucose (UA) Urine Ketones Urine Blood Urine Nitrite Urine Bilirubin Urine Urobilinogen Ur Leukocyte Esterase Urine WBC (Auto) Urine RBC (Auto) Urine Casts (Auto) U Pathogenic Cast Auto U Epithel Cells (Auto) Urine Crystals (Auto) Urine Bacteria (Auto) Urine Yeast (Auto) 08/15/19 12:18 WBC RBC Hgb Hct MCV MCH MCHC RDW Plt Count MPV Absolute Neuts (auto) Neutrophils % Lymphocytes % Monocytes % Eosinophils % Basophils % Nucleated RBC % PT with INR INR PTT (Actin FS) Sodium Potassium Chloride Carbon Dioxide Anion Gap BUN Creatinine Est GFR (CKD-EPI)AfAm Est GFR (CKD-EPI)NonAf POC Glucometer Random Glucose Calcium Phosphorus Magnesium Total Bilirubin AST ALT Alkaline Phosphatase Creatine Kinase 69 Troponin I 1.58 H* B-Natriuretic Peptide Total Protein Albumin Triglycerides Cholesterol Total LDL Cholesterol HDL Cholesterol TSH Free T4 Urine Color Urine Appearance Urine pH Ur Specific Crystal Urine Protein Urine Glucose (UA) Urine Ketones Urine Blood Urine Nitrite Urine Bilirubin Urine Urobilinogen Ur Leukocyte Esterase Urine WBC (Auto) Urine RBC (Auto) Urine Casts (Auto) U Pathogenic Cast Auto U Epithel Cells (Auto) Urine Crystals (Auto) Urine Bacteria (Auto) Urine Yeast (Auto) Active Medications Generic Name Dose Route Start Last Admin Trade Name Freq PRN Reason Stop Dose Admin Albuterol/Ipratropium 1 amp 08/15/19 04:38 Duoneb - NEB Q4H PRN SHORT OF BREATH/WHEEZING Amiodarone HCl 200 mg 08/15/19 10:00 08/15/19 11:00 Cordarone - PO 200 mg DAILY JENNY Administration Aspirin 81 mg 08/16/19 10:00 Asa - PO DAILY JENNY Atorvastatin Calcium 40 mg 08/15/19 22:00 Lipitor - PO HS JENNY Docusate Sodium 100 mg 08/15/19 10:00 08/15/19 11:00 Colace - PO 100 mg BID JENNY Administration Famotidine 20 mg 08/15/19 10:00 08/15/19 11:00 Pepcid - PO 20 mg DAILY JENNY Administration Ferrous Sulfate 325 mg 08/15/19 10:00 08/15/19 11:00 Feosol - PO 325 mg DAILY JENNY Administration Furosemide 40 mg 08/15/19 18:00 08/15/19 17:59 Lasix Injection - IVPUSH 40 mg DAILY JENNY Administration Ceftriaxone Sodium 1 gm/ 50 mls @ 100 mls/hr 08/16/19 10:00 Dextrose IVPB DAILY [facility] Insulin Aspart 1 vial 08/15/19 07:00 08/15/19 16:57 Novolog Vial Sliding Scale - SQ Not Given ACHS [facility] Protocol Metoprolol Tartrate 50 mg 08/15/19 06:00 08/15/19 14:31 Lopressor - PO 50 mg TID JENNY Administration Mometasone Furoate 1 puff 08/15/19 04:38 Asmanex 220mcg - IH BID PRN SHORTNESS OF BREATH Non-Formulary Medication 650 mg 08/15/19 04:38 Acetaminophen [Pain Relief] PO PRN PRN PAIN Ranolazine 500 mg 08/15/19 10:00 08/15/19 11:00 Ranexa - PO 500 mg BID JENNY Administration Rivaroxaban 15 mg 08/15/19 18:00 08/15/19 17:59 Xarelto PO 15 mg DAILY@1800 JENNY Administration Silver Sulfadiazine 1 applic 08/15/19 10:00 08/15/19 11:45 Silvadene - TP Not Given DAILY [facility] ASSESSMENT/PLAN: 84 y/o/f with PMHx of CAD( s/p PCI, CABG (2003)), HFpEF, HTN, DM, Hyperlipdemia , chronic right sided pleural effusions (s/p thoracocentesis), diverticulosis, gastritis, RESTREPO cirrhosis, and anxiety presented to the ED for chest discomfort. Pt is admitted to tele to r/o ACS. #Chest pain, R/O ACS - initial trop 0.06 -> last trop at 1.58 -> trend to peak - Reported Lexiscan 01/25: no ischemia, LVEF 48% - Cardiology consulted, Dr. Sage - ECHO - EF 55%, moderate asymmetric left ventricular hypertrophy, right ventricle mildly dilated, RVEF moderately reduced - ASA 81mg daily - Continue Xarelto for now, trend trop to peak. If trop continues to trend up, reach out for further cardiology recommendations on whether or not to switch to patient to Heparin - EKG in Afib, nonspecific changes, no ST elevations, will rpt - EKGs without ST elevations noted #R Pleural effusion 2/2 HFpEF vs hepatic hydrothorax - hx of past thoracentesis (last in January 2019) - Pulmonology consulted (Dr. Reid) - pleural fluid studies in the past have been mixed with elevated protein but low LDH - would monitor effusion with diuresis - can defer thoracentesis at this time as patient is asymptomatic from effusion #UTI - (+) UA, pending cultures - Continue Ceftriaxone 1g daily - Bladder/Renal U/S - couple of small non obstructing left renal stones with the largest measuring 8mm, both kidneys appear otherwise unremarkable #Hypothyroid - TSH 20.3 - Free T4 0.67 - will repeat labs and reassess #HTN - Toprol 50 TID - Lasix 40 daily #DM - ISS, BGM - A1C #AFib - Xarelto 15mg daily - Amiodarone 200mg - Toprol 50 tid #Acute on chronic HFpEF; CAD s/p PCI, CABG - BNP >2000 - Lasix 40 daily #Gastritis - can start Ranitadine if needed #COPD - c/w duonebs Q4h PRN, albuterol Q4h PRN, Asmanex #HLD - Atorvastatin 40mg #F/E/N - monitor and replete lytes as needed - sodium/diabetic diet - hypokalemic - repleted #Prophylaxis - Xarelto #Disposition - admitted to tele for further monitoring, trop uptrending, will continue to monitor Visit type - Emergency Visit Emergency Visit: Yes ED Registration Date: 08/15/19 Care time: The patient presented to the Emergency Department on the above date and was hospitalized for further evaluation of their emergent condition. - New Patient This patient is new to me today: Yes Date on this admission: 08/15/19 - Critical Care Critical Care patient: No ATTENDING PHYSICIAN STATEMENT I saw and evaluated the patient. I reviewed the resident's note and discussed the case with the resident. I agree with the resident's findings and plan as documented. SUBJECTIVE: OBJECTIVE: ASSESSMENT AND PLAN: <Beau Fields - Last Filed: 08/19/19 07:07> Physical Exam: SUBJECTIVE: Patient seen and examined OBJECTIVE: Vital Signs Period Temp Pulse Resp BP Sys/Cortes Pulse Ox Last 24 Hr 97.1 F-98.0 F 75-106 18-20 89-128/53-76 97-98 GENERAL: The patient is awake, alert, and fully oriented, in no acute distress. HEAD: Normal with no signs of trauma. EYES: PERRL, extraocular movements intact, sclera anicteric, conjunctiva clear. No ptosis. ENT: Ears normal, nares patent, oropharynx clear without exudates, moist mucous membranes. NECK: Trachea midline, full range of motion, supple. LUNGS: Breath sounds equal, clear to auscultation bilaterally, no wheezes, no crackles, no accessory muscle use. HEART: Regular rate and rhythm, S1, S2 without murmur, rub or gallop. ABDOMEN: Soft, nontender, nondistended, normoactive bowel sounds, no guarding, no rebound, no hepatosplenomegaly, no masses. EXTREMITIES: 2+ pulses, warm, well-perfused, no edema. NEUROLOGICAL: Cranial nerves II through XII grossly intact. Normal speech, gait not observed. PSYCH: Normal mood, normal affect. SKIN: Warm, dry, normal turgor, no rashes or lesions noted Laboratory Results - last 24 hr 08/18/19 08/18/19 08/18/19 06:00 12:30 18:24 Sodium 135 L Potassium 3.4 L Chloride 98 Carbon Dioxide 29 Anion Gap 8 BUN 20.5 H Creatinine 0.9 Est GFR (CKD-EPI)AfAm 67.10 Est GFR (CKD-EPI)NonAf 57.90 POC Glucometer 224 Random Glucose 106 Calcium 9.3 Magnesium 2.1 Total Bilirubin 0.4 AST 20 ALT 18 Alkaline Phosphatase 83 Total Protein 5.6 L Albumin 2.3 L Influenza A (Rapid) Negative Influenza B (Rapid) Negative 08/18/19 08/19/19 21:12 05:44 Sodium Potassium Chloride Carbon Dioxide Anion Gap BUN Creatinine Est GFR (CKD-EPI)AfAm Est GFR (CKD-EPI)NonAf POC Glucometer 124 135 Random Glucose Calcium Magnesium Total Bilirubin AST ALT Alkaline Phosphatase Total Protein Albumin Influenza A (Rapid) Influenza B (Rapid) Active Medications Generic Name Dose Route Start Last Admin Trade Name Freq PRN Reason Stop Dose Admin Acetaminophen 650 mg 08/17/19 13:30 08/18/19 06:26 Tylenol - PO 650 mg DAILY PRN Administration PAIN Albuterol/Ipratropium 1 amp 08/15/19 04:38 Duoneb - NEB Q4H PRN SHORT OF BREATH/WHEEZING Amiodarone HCl 200 mg 08/15/19 10:00 08/18/19 12:07 Cordarone - PO 200 mg DAILY JENNY Administration Aspirin 81 mg 08/16/19 10:00 08/18/19 12:07 Asa - PO 81 mg DAILY JENNY Administration Atorvastatin Calcium 40 mg 08/15/19 22:00 08/18/19 22:11 Lipitor - PO 40 mg HS JENNY Administration Budesonide/Formoterol Fumarate 2 puff 08/16/19 22:00 08/18/19 22:12 Symbicort 160/4.5mcg - IH 2 puff BID JENNY Administration Docusate Sodium 100 mg 08/15/19 10:00 08/18/19 22:11 Colace - PO 100 mg BID JENNY Administration Famotidine 20 mg 08/15/19 10:00 08/18/19 12:07 Pepcid - PO 20 mg DAILY JENNY Administration Ferrous Sulfate 325 mg 08/15/19 10:00 08/18/19 12:07 Feosol - PO 325 mg DAILY JENNY Administration Furosemide 40 mg 08/15/19 18:00 08/18/19 11:46 Lasix Injection - IVPUSH 40 mg DAILY JENNY Administration Ertapenem 1 gm/ Sodium 50 mls @ 100 mls/hr 08/18/19 12:00 08/18/19 13:32 Chloride IVPB 100 mls/hr DAILY JENNY Administration Insulin Aspart 1 vial 08/15/19 07:00 08/19/19 06:28 Novolog Vial Sliding Scale - SQ Not Given ACHS [facility] Protocol Levothyroxine Sodium 25 mcg 08/17/19 07:00 08/19/19 06:44 Synthroid - PO 25 mcg DAILY@0700 JENNY Administration Metoprolol Tartrate 75 mg 08/16/19 08:45 08/19/19 06:44 Lopressor - PO 75 mg TID JENNY Administration Ranolazine 1,000 mg 08/17/19 10:00 08/18/19 22:11 Ranexa - PO 1,000 mg BID JENNY Administration Rivaroxaban 15 mg 08/15/19 18:00 08/18/19 17:32 Xarelto PO 15 mg DAILY@1800 JENNY Administration Silver Sulfadiazine 1 applic 08/15/19 10:00 08/18/19 11:46 Silvadene - TP Not Given DAILY JENNY ASSESSMENT/PLAN: ATTENDING PHYSICIAN STATEMENT I saw and evaluated the patient. I reviewed the resident's note and discussed the case with the resident. I agree with the resident's findings and plan as documented. SUBJECTIVE: OBJECTIVE: ASSESSMENT AND PLAN:
[2019-08-15] MEDS: ATORVASTATIN CA 40 MG TABLET (FP) PO SCH (21:28)
[2019-08-16] MEDS: METOPROLOL TARTRATE 50 MG TABLET (FP) PO SCH (06:04)
[2019-08-16] MEDS: INSULIN SLIDING SCALE (NOVOLOG) 1 VIAL SQ SCH ×4 (06:07→22:07)
[2019-08-16 07:18] LABS: HEMOGLOBIN 11.1 GM/dL (10.7-15.3); MCHC 32.6 g/dl (32.0-36.0); MEAN CELL VOLUME 95.1 fl (80-96); MEAN PLT VOLUME 8.3 fl (7.5-11.1); PLATELET COUNT 351 K/MM3 (134-434); RBC 3.57 M/mm3 (3.60-5.2); RDW 18.1 % (11.6-15.6); WHITE BLOOD COUNT 6.9 K/mm3 (4.0-10.0)
[2019-08-16 08:21] LABS: ALBUMIN 2.4 g/dl (3.4-5.0); BILIRUBIN,TOTAL 0.4 mg/dL (0.2-1); BLOOD UREA NITROGEN 22.9 mg/dL (7-18); CALCIUM 9.5 mg/dL (8.5-10.1); CREATININE 0.9 mg/dL (0.55-1.3); POTASSIUM 3.8 mmol/L (3.5-5.1)
--- NOTE | 2019-08-16 08:37 | PN ---
Teaching Attending Note Name of Resident: María Casarez ATTENDING PHYSICIAN STATEMENT I saw and evaluated the patient. I reviewed the resident's note and discussed the case with the resident. I agree with the resident's findings and plan as documented. Seen and examined; please see resident note for further historical information. I personally verified all diamond historical information and exam findings. Personally interpreted all imaging and diagnostics and reviewed appropriate consults. I reviewed all labs and vital signs as per resident note and EMR as documented. I agree with the above assessment and plan unless supplemented by myself in the following. Pulmonary and CV continue to follow. Was previously on 100 TID MT; increasing to 75 and will FU with CV. Checkign orthostatics. 10 sys ROS done and negative aside from HPI OBJECTIVE: VS, labs, imaging reviewed NAD, AAO, resting comfortably in bed. RRR s1/2 no mgr Normal muscle tone, moves all 5 extremities with normal apparent strength Neck is supple, trachea midline, no karolyn LN Lungs CTAB with sym expansion NT ND +BS no karolyn organomegaly CN2-12 wnl; no FND NC AT EOMI PERRLA Normal mood, appropriate behavior, euthymic affect No skin breakdown or rashes noted Telemetry reviewed EKG reviewed CXR reviewed; no significant changes from admission seen on the CXR with persisting R-effusion/R-infiltrative changes seen with post-CABG changes noted Echocardiogram is technically difficult with many images suboptimal in quality with moderate asymmetric left LVH, right ventricular dilation, RV systolic function moderately reduced with normal RVSP and mild aortic stenosis with no significant changes seen from 02/02/2019 study. No culture data noted Renal/Bladder US reviewed; multiple nonobstructing stones with the largest being 8mm noted. A/P: Presents with NSTEMI (2 vs. 1) and acute on chronic CHF exacerbation (R sided and LVDD on echo); continues on lasix. Potential UTI with stones noted on US can FU with urology nonurgently (consult placed) and with potential pneumonia pattern on CXR on R-side with recurring R-sided effusion, CT pending. Checking influenza, viral PCR, starting incentive spirometry, consulting dietary for protein calorie malnutrition. On RA. Problems include: -Acute respiratory failure 2/2 CHF exacerbation +/- PNA (R-sided potential infiltrative changes noted with effusion. Would be CAP if PNA so adding PO doxy for coverage BID and can DC if no infiltrate on CT). -R-pleural effusion (Tap in 02/2019 with mixed effusion with low LDH noted and high protein; monitoring with diuresis and no significant changes noted on CXR. Per pulm can defer repeat thoracentesis at this time as she is asymptomatic. Will discuss with their service) -R/O UTI (FU Cultures; multiple nonobstructing stones with the largest being 8mm noted. On ceftriaxone.) -NSTEMI (Type II vs. Type I in the setting of hx CAD s/p CABG, PCI) (FU with CV. Echo noted above. Continue xarelto, ranexa 500 BID (can uptitrate to 1000 BID per CV), atorva 40mg Abnormal TSH (TSH 25 and FT4 is 0.66; start thyroid replacement therapy. Can FU with PCP and OP endocrine) History of mild History of atrial fibrillation on Xarelto (CV2 score =7; continue xarelto, amiodarone, MT. Was previously on 100 TID MT; increasing to 75 and will FU with CV. Checkign orthostatics. ) History of coronary artery disease status post CABG, PCI as discussed above History of R-sided CHF with LV-Diastolic Dysfunction History of hypertension History of hyperlipidemia (Atorva 40mg PO QD) History of COPD, remote former sleepwalker with stable lung nodules, no acute issues History of gastritis History of diverticulosis History of cirrhosis secondary to nonalcoholic steatohepatitis History of cholelithiasis History of [place] induced hepatitis in 1994 History of anemia History of anxiety History of diabetes mellitus Renal stones (discussed above) History of mesenteric mass of undetermined etiology since 2016, status post hysterectomy History of MCI Hypoalbuminemia (Checking prealbumin; consult dietary for further recs) Severe protein-calorie malnutrition History of orthostasis (was on midodrine TID previously and is a large fall risk ; will FU orthostatics and consider CALLUM garnica) Code Status Reviewed
--- NOTE | 2019-08-16 11:15 | EKG ---
Test Reason : Blood Pressure : / mmHG Vent. Rate : 086 BPM Atrial Rate : 060 BPM P-R Int : 000 ms QRS Dur : 104 ms QT Int : 440 ms P-R-T Axes : 000 102 221 degrees QTc Int : 526 ms ATRIAL FIBRILLATION RIGHTWARD AXIS PULMONARY DISEASE PATTERN PROLONGED QT ABNORMAL ECG WHEN COMPARED WITH ECG OF 15-AUG-2019 20:07, ATRIAL FIBRILLATION HAS REPLACED ATRIAL FLUTTER Confirmed by JARROD SANCHEZ, ASHA ([id number]) on 08/16/2019 11:15:23 AM Referred By: Meggan CRAWFORD Confirmed By:ASHA GARAY MD
--- NOTE | 2019-08-16 11:36 | EKG ---
Test Reason : Blood Pressure : / mmHG Vent. Rate : 090 BPM Atrial Rate : 267 BPM P-R Int : 000 ms QRS Dur : 096 ms QT Int : 392 ms P-R-T Axes : 000 092 225 degrees QTc Int : 479 ms ATRIAL FLUTTER WITH VARIABLE A-V BLOCK RIGHTWARD AXIS LOW VOLTAGE QRS PROLONGED QT ABNORMAL ECG WHEN COMPARED WITH ECG OF 15-AUG-2019 14:18, ATRIAL FLUTTER HAS REPLACED ATRIAL FIBRILLATION Confirmed by ASHA GARAY MD ([id number]) on 08/16/2019 11:35:51 AM Referred By: Confirmed By:ASHA GARAY MD
[2019-08-16] MEDS ORDERED: cefTRIAXone SODIUM 1 GM VIAL ONE (11:38)
[2019-08-16] MEDS ORDERED: DEXTROSE 5%-WATER - 50 ML IVPB ONE (11:38)
--- NOTE | 2019-08-16 11:39 | PN ---
Progress Note, Physician History of Present Illness: No further chest pain, dyspnea improving with diuresis. - Current Medication List Current Medications: Active Medications Albuterol/Ipratropium (Duoneb -) 1 amp NEB Q4H PRN PRN Reason: SHORT OF BREATH/WHEEZING Amiodarone HCl (Cordarone -) 200 mg PO DAILY [facility] Last Admin: 08/15/19 11:00 Dose: 200 mg Aspirin (Asa -) 81 mg PO DAILY [facility] Atorvastatin Calcium (Lipitor -) 40 mg PO HS [facility] Last Admin: 08/15/19 21:28 Dose: 40 mg Docusate Sodium (Colace -) 100 mg PO BID [facility] Last Admin: 08/15/19 21:28 Dose: 100 mg Famotidine (Pepcid -) 20 mg PO DAILY [facility] Last Admin: 08/15/19 11:00 Dose: 20 mg Ferrous Sulfate (Feosol -) 325 mg PO DAILY [facility] Last Admin: 08/15/19 11:00 Dose: 325 mg Furosemide (Lasix Injection -) 40 mg IVPUSH DAILY [facility] Last Admin: 08/15/19 17:59 Dose: 40 mg Ceftriaxone Sodium 1 gm/ (Dextrose) 50 mls @ 100 mls/hr IVPB DAILY [facility] Insulin Aspart (Novolog Vial Sliding Scale -) 1 vial SQ ACHS [facility]; Protocol Last Admin: 08/16/19 06:07 Dose: Not Given Metoprolol Tartrate (Lopressor -) 75 mg PO TID [facility] Mometasone Furoate (Asmanex 220mcg -) 1 puff IH BID PRN PRN Reason: SHORTNESS OF BREATH Non-Formulary Medication (Acetaminophen [Pain Relief]) 650 mg PO PRN PRN PRN Reason: PAIN Ranolazine (Ranexa -) 500 mg PO BID [facility] Last Admin: 08/15/19 21:28 Dose: 500 mg Rivaroxaban (Xarelto) 15 mg PO DAILY@1800 [facility] Last Admin: 08/15/19 17:59 Dose: 15 mg Silver Sulfadiazine (Silvadene -) 1 applic TP DAILY [facility] Last Admin: 08/15/19 11:45 Dose: Not Given - Objective Vital Signs: Vital Signs Temperature 97.7 F 08/16/19 06:00 Pulse Rate 94 H 08/16/19 06:00 Respiratory Rate 18 08/16/19 06:00 Blood Pressure 103/60 08/16/19 06:00 O2 Sat by Pulse Oximetry (%) 97 08/15/19 20:00 Constitutional: Yes: No Distress, Calm Neck: Yes: Supple Cardiovascular: Yes: Pulse Irregular, Murmur (2/6 SM) Respiratory: Yes: Regular, Diminished, On Nasal O2 Gastrointestinal: Yes: Normal Bowel Sounds, Soft Edema: No Labs: CBC, BMP 08/16/19 06:24 08/16/19 06:24 INR, PTT INR 0.96 (0.83-1.09) 08/14/19 23:00 - ....Imaging EKG: Report Reviewed (Tele: Afib) Problem List - Problems (1) Chronic atrial fibrillation Code(s): I48.2 - CHRONIC ATRIAL FIBRILLATION * DO NOT USE * (2) CHF (congestive heart failure) Code(s): I50.9 - HEART FAILURE, UNSPECIFIED Qualifiers: Heart failure type: diastolic Heart failure chronicity: acute on chronic Qualified Code(s): I50.33 - Acute on chronic diastolic (congestive) heart failure (3) CKD (chronic kidney disease) Code(s): N18.9 - CHRONIC KIDNEY DISEASE, UNSPECIFIED (4) Diabetes Code(s): E11.9 - TYPE 2 DIABETES MELLITUS WITHOUT COMPLICATIONS Qualifiers: Diabetes mellitus type: type 2 Diabetes mellitus continuous churn buttermaker insulin use: without continuous churn buttermaker use (5) Hx of CABG Code(s): Z95.1 - PRESENCE OF AORTOCORONARY BYPASS GRAFT (6) Hyperlipidemia Code(s): E78.5 - HYPERLIPIDEMIA, UNSPECIFIED Qualifiers: Hyperlipidemia type: pure hypercholesterolemia Qualified Code(s): E78.00 - Pure hypercholesterolemia, unspecified; E78.0 - Pure hypercholesterolemia (7) Hypertension Code(s): I10 - ESSENTIAL (PRIMARY) HYPERTENSION Qualifiers: Hypertension type: essential hypertension Qualified Code(s): I10 - Essential (primary) hypertension (8) Pleural effusion Code(s): J90 - PLEURAL EFFUSION, NOT ELSEWHERE CLASSIFIED Assessment/Plan 08/15/19 Echo: Normal LV size and fxn, mod cLVH LVEF 55%, mild dilated RV with mod decreased RV fxn, mild JUSTINO, mild MR, TR, 08/16/[address]: Large right>left efussion with compressive ATX 1. Chest pain with underlying CAD s/p PCI, CABG, elevated troponin referable to demand subendocardial ischemia 2. Persistent AF with variable ventricular response, [id number] score of 7 on DOAC 3. T2DM 4. Acute on chronic LV diastolic failure with R>L pleural effusion 5. HTN 6. Hypercholesterolemia 7. COPD 8. RESTREPO with cirrhosis 9. Chronic anemia with history of diverticular disease and gastritis 10. CKD 11. Abnormal TSH 12. Mild aortic stenosis PLAN: 1. IV diuresis with monitor diuretic response, renal fxn and electrolytes 2. Continue Metoprolol Tartrate 75 mg TID as tolerated 3. Continue Amiodarone 200 mg QD as tolerated. Continue Ranexa 500 mg BID (may uptitrate to 1000 mg BID is tolerated) 4. Continue Xarelto 15 mg QD. Troponin peaked and downtrending 5. ASA 81 mg QD 6. Atorvastatin 40 mg QHS 7. Consider d/c empiric abx w/o clear signs of PNA 8. Can defer thoracentesis at this time as pt asymptomatic from effusion
[2019-08-16] MEDS: ASPIRIN 81 MG CHEWABLE TABLETS PO SCH (11:59)
[2019-08-16] MEDS: DOCUSATE SODIUM 100 MG CAPSULE (FP) PO SCH ×2 (11:59→22:07)
[2019-08-16] MEDS: FAMOTIDINE 20 MG TABLET PO SCH (12:00)
[2019-08-16] MEDS: FERROUS SO4 325 MG TABLET (FP) PO SCH (12:00)
[2019-08-16] MEDS: AMIODARONE HCL 200 MG TABLET PO SCH (12:00)
[2019-08-16] MEDS: RANOLAZINE E.R. 500 MG TABLET (FP) PO SCH ×2 (12:00→22:07)
[2019-08-16] MEDS: CEFTRIAXONE 1 GM in DEXTROSE 5%-WATER - 50 ML IVPB SCH (12:01)
[2019-08-16] MEDS: FUROSEMIDE 40 MG/4 ML INJECTABLE VIAL IVPUSH SCH (12:01)
--- NOTE | 2019-08-16 13:51 | PN ---
Physical Exam: SUBJECTIVE: Patient seen and examined. Denies chest pain. Complains of mild SOB but states this is her baseline. No acute events overnight. Denies abd durbin, chills, fever, poor appetite. OBJECTIVE: Vital Signs Period Temp Pulse Resp BP Sys/Cortes Pulse Ox Last 24 Hr 97.7 F-98.3 F 69-111 18-18 103-132/47-83 95-99 GENERAL: The patient is awake, alert, and fully oriented, in no acute distress. HEAD: Normal with no signs of trauma. EYES: EOMI, no scleral icterus, no ptosis ENT: MMM NECK: supple, trachea midline LUNGS: Diminished breath sounds R>L, no accessory muscle use HEART: RRR, murmur noted ABDOMEN: Soft, nondistended, normoactive bowel sounds, no guarding, no rebound. mild tenderness to palpation over RLQ EXTREMITIES: 2+ pulses, warm, well-perfused, no edema NEUROLOGICAL: Normal speech, gait not observed. PSYCH: Normal mood, normal affect. SKIN: Warm, dry, normal turgor, no rashes or lesions noted. Stage 1 sacral ulcer , with small area of skin breakage, no evidence of infection Laboratory Results - last 24 hr 08/15/19 08/15/19 08/15/19 12:18 16:54 18:15 WBC RBC Hgb Hct MCV MCH MCHC RDW Plt Count MPV Sodium Potassium Chloride Carbon Dioxide Anion Gap BUN Creatinine Est GFR (CKD-EPI)AfAm Est GFR (CKD-EPI)NonAf POC Glucometer 119 Random Glucose Calcium Total Bilirubin AST ALT Alkaline Phosphatase Creatine Kinase 69 Troponin I 1.58 H* Total Protein Albumin TSH 25.00 H Free T4 0.66 L 08/15/19 08/15/19 08/16/19 18:15 21:26 00:31 WBC RBC Hgb Hct MCV MCH MCHC RDW Plt Count MPV Sodium Potassium Chloride Carbon Dioxide Anion Gap BUN Creatinine Est GFR (CKD-EPI)AfAm Est GFR (CKD-EPI)NonAf POC Glucometer 312 Random Glucose Calcium Total Bilirubin AST ALT Alkaline Phosphatase Creatine Kinase 80 Troponin I 2.10 H* 1.53 H* Total Protein Albumin TSH Free T4 08/16/19 08/16/19 08/16/19 06:05 06:24 06:24 WBC 6.9 RBC 3.57 L Hgb 11.1 Hct 34.0 MCV 95.1 MCH 31.0 MCHC 32.6 RDW 18.1 H Plt Count 351 MPV 8.3 Sodium 139 Potassium 3.8 Chloride 102 Carbon Dioxide 29 Anion Gap 7 L BUN 22.9 H Creatinine 0.9 Est GFR (CKD-EPI)AfAm 67.10 Est GFR (CKD-EPI)NonAf 57.90 POC Glucometer 101 Random Glucose 92 Calcium 9.5 Total Bilirubin 0.4 AST 20 ALT 15 Alkaline Phosphatase 95 Creatine Kinase Troponin I Total Protein 6.0 L Albumin 2.4 L TSH Free T4 Active Medications Generic Name Dose Route Start Last Admin Trade Name Freq PRN Reason Stop Dose Admin Albuterol/Ipratropium 1 amp 08/15/19 04:38 Duoneb - NEB Q4H PRN SHORT OF BREATH/WHEEZING Amiodarone HCl 200 mg 08/15/19 10:00 08/16/19 12:00 Cordarone - PO 200 mg DAILY JENNY Administration Aspirin 81 mg 08/16/19 10:00 08/16/19 11:59 Asa - PO 81 mg DAILY JENNY Administration Atorvastatin Calcium 40 mg 08/15/19 22:00 08/15/19 21:28 Lipitor - PO 40 mg HS JENNY Administration Docusate Sodium 100 mg 08/15/19 10:00 08/16/19 11:59 Colace - PO 100 mg BID JENNY Administration Famotidine 20 mg 08/15/19 10:00 08/16/19 12:00 Pepcid - PO 20 mg DAILY JENNY Administration Ferrous Sulfate 325 mg 08/15/19 10:00 08/16/19 12:00 Feosol - PO 325 mg DAILY JENNY Administration Furosemide 40 mg 08/15/19 18:00 08/16/19 12:01 Lasix Injection - IVPUSH 40 mg DAILY JENNY Administration Ceftriaxone Sodium 1 gm/ 50 mls @ 100 mls/hr 08/16/19 10:00 08/16/19 12:01 Dextrose IVPB 100 mls/hr DAILY JENNY Administration Insulin Aspart 1 vial 08/15/19 07:00 08/16/19 06:07 Novolog Vial Sliding Scale - SQ Not Given ACHS JENNY Protocol Metoprolol Tartrate 75 mg 08/16/19 08:45 Lopressor - PO TID JENNY Mometasone Furoate 1 puff 08/15/19 04:38 Asmanex 220mcg - IH BID PRN SHORTNESS OF BREATH Non-Formulary Medication 650 mg 08/15/19 04:38 Acetaminophen [Pain Relief] PO PRN PRN PAIN Ranolazine 500 mg 08/15/19 10:00 08/16/19 12:00 Ranexa - PO 500 mg BID JENNY Administration Rivaroxaban 15 mg 08/15/19 18:00 08/15/19 17:59 Xarelto PO 15 mg DAILY@1800 JENNY Administration Silver Sulfadiazine 1 applic 08/15/19 10:00 08/15/19 11:45 Silvadene - TP Not Given DAILY JENNY ASSESSMENT/PLAN: 84 y/o/f with PMHx of CAD( s/p PCI, CABG (2003)), HFpEF, HTN, DM, Hyperlipdemia , chronic right sided pleural effusions (s/p thoracocentesis), diverticulosis, gastritis, RESTREPO cirrhosis, and anxiety presented to the ED for chest discomfort. Pt is admitted to tele to r/o ACS. #Chest pain, R/O ACS - Trop trended to peak and downtrend. Cardiology aware - Reported Lexiscan 01/25: no ischemia, LVEF 48% - Cardiology consulted, Dr. Saeg - ECHO - EF 55%, moderate asymmetric left ventricular hypertrophy, right ventricle mildly dilated, RVEF moderately reduced - ASA 81mg daily - Continue Xarelto for now - EKG in Afib, nonspecific changes, no ST elevations, will rpt - repeat EKGs without ST elevations noted - patient now denying chest pain #R Pleural effusion 2/2 HFpEF vs hepatic hydrothorax - hx of past thoracentesis (last in January 2019) - Continue Lasix 40mg IV - Follow CXR - CT chest showing large right and smaller left pleural effusions with extensive atelectasis of the lower lobes. There are chronic lung changes noted biaterally with no definite evidence of pneumonia or acute pathology. 5mm nodule that is stable since prior studies on 02/01/19. - Pulmonology consulted (Dr. Reid), appreciate recs - pleural fluid studies in the past have been mixed with elevated protein but low LDH - would monitor effusion with diuresis - can defer thoracentesis at this time as patient is asymptomatic from effusion - F/u flu swab test #UTI - (+) UA, UA growing lactose fermenting negative bacilli, pending sensitivity - Continue Ceftriaxone 1g daily - Bladder/Renal U/S - couple of small non obstructing left renal stones with the largest measuring 8mm, both kidneys appear otherwise unremarkable #Hypothyroid - TSH 20.3 -> 25 - Free T4 0.67 -> 0.66 - Started on Synthroid 25mg daily #HTN - Toprol 75 TID - Lasix 40 daily #DM - ISS, BGM - A1C #AFib - Xarelto 15mg daily - Amiodarone 200mg - Toprol 75 TID #Acute on chronic HFpEF; CAD s/p PCI, CABG - BNP >2000 on admission - Lasix 40 daily #Gastritis - can start Ranitadine if needed #COPD - c/w duonebs Q4h PRN, albuterol Q4h PRN, Asmanex #HLD - Atorvastatin 40mg #F/E/N - monitor and replete lytes as needed - sodium/diabetic diet - hypokalemic #Prophylaxis - Xarelto #Disposition - trop trended to peak. Continuing IV diuresis for bilateral pleural effusions - Patient likely to need SNF on discharge Visit type - Emergency Visit Emergency Visit: Yes ED Registration Date: 08/15/19 Care time: The patient presented to the Emergency Department on the above date and was hospitalized for further evaluation of their emergent condition. - New Patient This patient is new to me today: No - Critical Care Critical Care patient: No ATTENDING PHYSICIAN STATEMENT I saw and evaluated the patient. I reviewed the resident's note and discussed the case with the resident. I agree with the resident's findings and plan as documented. SUBJECTIVE: OBJECTIVE: ASSESSMENT AND PLAN:
--- NOTE | 2019-08-16 14:11 | PN ---
Progress Note (short form) - Note Progress Note: PULMONARY No further chest pain. Denies shortness of breath. Vital Signs Period Temp Pulse Resp BP Sys/Cortes Pulse Ox Last 24 Hr 97.7 F-98.3 F 74-111 18-18 103-132/60-83 95-99 Gen: NAD at rest Heart: RRR Lung: decreased breath sounds at the bases Abd: soft, nontender Ext: no edema CBC, BMP 08/16/19 06:24 08/16/19 06:24 Active Medications Albuterol/Ipratropium (Duoneb -) 1 amp NEB Q4H PRN PRN Reason: SHORT OF BREATH/WHEEZING Amiodarone HCl (Cordarone -) 200 mg PO DAILY REPLACED BY [facility] Last Admin: 08/16/19 12:00 Dose: 200 mg Aspirin (Asa -) 81 mg PO DAILY REPLACED BY [facility] Last Admin: 08/16/19 11:59 Dose: 81 mg Atorvastatin Calcium (Lipitor -) 40 mg PO HS REPLACED BY [facility] Last Admin: 08/15/19 21:28 Dose: 40 mg Docusate Sodium (Colace -) 100 mg PO BID REPLACED BY [facility] Last Admin: 08/16/19 11:59 Dose: 100 mg Famotidine (Pepcid -) 20 mg PO DAILY REPLACED BY [facility] Last Admin: 08/16/19 12:00 Dose: 20 mg Ferrous Sulfate (Feosol -) 325 mg PO DAILY REPLACED BY [facility] Last Admin: 08/16/19 12:00 Dose: 325 mg Furosemide (Lasix Injection -) 40 mg IVPUSH DAILY REPLACED BY [facility] Last Admin: 08/16/19 12:01 Dose: 40 mg Ceftriaxone Sodium 1 gm/ (Dextrose) 50 mls @ 100 mls/hr IVPB DAILY REPLACED BY [facility] Last Admin: 08/16/19 12:01 Dose: 100 mls/hr Insulin Aspart (Novolog Vial Sliding Scale -) 1 vial SQ ACHS REPLACED BY [facility]; Protocol Last Admin: 08/16/19 13:53 Dose: Not Given Metoprolol Tartrate (Lopressor -) 75 mg PO TID REPLACED BY [facility] Mometasone Furoate (Asmanex 220mcg -) 1 puff IH BID PRN PRN Reason: SHORTNESS OF BREATH Non-Formulary Medication (Acetaminophen [Pain Relief]) 650 mg PO PRN PRN PRN Reason: PAIN Ranolazine (Ranexa -) 500 mg PO BID REPLACED BY [facility] Last Admin: 08/16/19 12:00 Dose: 500 mg Rivaroxaban (Xarelto) 15 mg PO DAILY@1800 REPLACED BY [facility] Last Admin: 08/15/19 17:59 Dose: 15 mg Silver Sulfadiazine (Silvadene -) 1 applic TP DAILY REPLACED BY [facility] Last Admin: 08/15/19 11:45 Dose: Not Given A/P Chest Pain +Troponins likely Demand Ischemia Acute on Chronic Diastolic Heart Failure Pleural Effusion likely from above Atrial Fibrillation Aortic Stenosis COPD Liver Cirrhosis HTN CKD Hypercholesterolemia - continue anticoagulation - rate controlled - pleural fluid studies in the past have been mixed with elevated protein but low LDH - would monitor effusion with diuresis - can defer thoracentesis at this time as pt asymptomatic from effusion
[2019-08-16] MEDS ORDERED: FUROSEMIDE 40 MG/4 ML INJECTABLE VIAL IVPUSH ONE (15:00)
[2019-08-16] MEDS: METOPROLOL TARTRATE 25 MG TABLET (FP) PO SCH ×2 (18:48→22:07)
[2019-08-16] MEDS: RIVAROXABAN 15 MG TABLET PO SCH (18:57)
[2019-08-16] MEDS: SILVER SULFADIAZINE 1% TOP CREAM 50 GM JAR TP SCH (18:57)
[2019-08-16] MEDS: BUDESONIDE/FORMETEROL FUMARATE 160/4.5 mcg INHALER IH SCH (22:07)
[2019-08-16] MEDS: ATORVASTATIN CA 40 MG TABLET (FP) PO SCH (22:07)
[2019-08-17] MEDS: INSULIN SLIDING SCALE (NOVOLOG) 1 VIAL SQ SCH ×4 (06:07→21:55)
[2019-08-17] MEDS: LEVOTHYROXINE NA 25 MCG TABLET (FP) PO SCH (06:08)
[2019-08-17] MEDS: METOPROLOL TARTRATE 25 MG TABLET (FP) PO SCH ×3 (06:09→21:50)
[2019-08-17 08:15] LABS: ALBUMIN 2.4 g/dl (3.4-5.0); BILIRUBIN,TOTAL 0.4 mg/dL (0.2-1); BLOOD UREA NITROGEN 22.1 mg/dL (7-18); CALCIUM 9.5 mg/dL (8.5-10.1); POTASSIUM 4.4 mmol/L (3.5-5.1); TOT PROT 5.6 g/dl (6.4-8.2)
[2019-08-17] MEDS ORDERED: cefTRIAXone SODIUM 1 GM VIAL ONE (09:22)
[2019-08-17] MEDS ORDERED: DEXTROSE 5%-WATER - 50 ML IVPB ONE (09:22)
--- NOTE | 2019-08-17 09:26 | PN ---
Teaching Attending Note Name of Resident: María Casarez ATTENDING PHYSICIAN STATEMENT I saw and evaluated the patient. I reviewed the resident's note and discussed the case with the resident. I agree with the resident's findings and plan as documented. Seen and examined; please see resident note for further historical information. I personally verified all diamond historical information and exam findings. Personally interpreted all imaging and diagnostics and reviewed appropriate consults. I reviewed all labs and vital signs as per resident note and EMR as documented. I agree with the above assessment and plan unless supplemented by myself in the following. Chest x-rays show moderate pleural effusion on the right with compressive atelectasis and airspace opacities noted in the right lower lung zone. Will order swallow evaluation. No other complaints 10 sys ROS done and negative aside from HPI OBJECTIVE: VS, labs, imaging reviewed NAD, AAO, resting comfortably in bed. RRR s1/2 no mgr Normal muscle tone, moves all 5 extremities with normal apparent strength Neck is supple, trachea midline, no karolyn LN Lungs CTAB with sym expansion NT ND +BS no karolyn organomegaly CN2-12 wnl; no FND NC AT EOMI PERRLA Normal mood, appropriate behavior, euthymic affect No skin breakdown or rashes noted Telemetry reviewed EKG reviewed 08/16/2019: Reveals prolonged QT at 526 with noted atrial fibrillation. CT shows large right and smaller left pleural effusions with extensive atelectasis of lower lobes with chronic lung changes noted bilaterally with no definitive evidence of pneumonia or acute pathology Chest x-ray 08/17/2019 discussed above CXR reviewed; no significant changes from admission seen on the CXR with persisting R-effusion/R-infiltrative changes seen with post-CABG changes noted Echocardiogram is technically difficult with many images suboptimal in quality with moderate asymmetric left LVH, right ventricular dilation, RV systolic function moderately reduced with normal RVSP and mild aortic stenosis with no significant changes seen from 02/02/2019 study. No culture data noted Renal/Bladder US reviewed; multiple nonobstructing stones with the largest being 8mm noted. Swallow evaluation pending Microbiology 08/15/19 01:05 Urine - Urine Clean Catch Urine Culture - Preliminary Lactose Fermenting Neg Bacilli A/P: Presents with NSTEMI (2 vs. 1) and acute on chronic CHF exacerbation (R sided and LVDD on echo); continues on lasix. Potential UTI With over 100,000 CFU lactose fermenting gram-negative bacilli noted. Following up speciation and sensitivities. Tolerating metoprolol tartrate 75 mg 3 times daily. Uptitrating Ranexa to 1000 twice daily today. Continuing Xarelto, aspirin, statin. Continuing antibiotics for UTI, but there is no pneumonia with the suspected infiltrate being likely atelectatic changes based on the CT results. Problems include: -Acute respiratory failure 2/2 CHF exacerbation (R-sided potential infiltrative changes noted with effusion. -R-pleural effusion (Tap in 02/2019 with mixed effusion with low LDH noted and high protein; monitoring with diuresis and no significant changes noted on CXR. Per pulm can defer repeat thoracentesis at this time as she is asymptomatic. Will discuss with their service) -UTI (FU Cultures; multiple nonobstructing stones with the largest being 8mm noted. On ceftriaxone.) -NSTEMI (Type II vs. Type I in the setting of hx CAD s/p CABG, PCI) (FU with CV. Echo noted above. Continue xarelto, ranexa 1000 BID, atorva 40mg Abnormal TSH (TSH 25 and FT4 is 0.66; Continue thyroid replacement and follow- up TSH outpatient per protocol. Can FU with PCP and OP endocrine) History of mild History of atrial fibrillation on Xarelto (CV2 score =7; continue xarelto, amiodarone, MT. 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
[2019-08-17] MEDS: DOCUSATE SODIUM 100 MG CAPSULE (FP) PO SCH ×2 (10:14→21:52)
[2019-08-17] MEDS: FAMOTIDINE 20 MG TABLET PO SCH (10:14)
[2019-08-17] MEDS: ASPIRIN 81 MG CHEWABLE TABLETS PO SCH (10:14)
[2019-08-17] MEDS: FERROUS SO4 325 MG TABLET (FP) PO SCH (10:14)
[2019-08-17] MEDS: AMIODARONE HCL 200 MG TABLET PO SCH (10:15)
[2019-08-17] MEDS: FUROSEMIDE 40 MG/4 ML INJECTABLE VIAL IVPUSH SCH (10:15)
[2019-08-17] MEDS: BUDESONIDE/FORMETEROL FUMARATE 160/4.5 mcg INHALER IH SCH ×2 (10:16→22:03)
[2019-08-17] MEDS: CEFTRIAXONE 1 GM in DEXTROSE 5%-WATER - 50 ML IVPB SCH (10:16)
[2019-08-17] MEDS: RANOLAZINE E.R. 500 MG TABLET (FP) PO SCH ×2 (10:16→21:53)
--- NOTE | 2019-08-17 10:22 | PN ---
Progress Note, Physician History of Present Illness: No further chest pain, dyspnea improving with diuresis. - Current Medication List Current Medications: Active Medications Albuterol/Ipratropium (Duoneb -) 1 amp NEB Q4H PRN PRN Reason: SHORT OF BREATH/WHEEZING Amiodarone HCl (Cordarone -) 200 mg PO DAILY [facility] Last Admin: 08/17/19 10:15 Dose: 200 mg Aspirin (Asa -) 81 mg PO DAILY [facility] Last Admin: 08/17/19 10:14 Dose: 81 mg Atorvastatin Calcium (Lipitor -) 40 mg PO HS [facility] Last Admin: 08/16/19 22:07 Dose: 40 mg Budesonide/Formoterol Fumarate (Symbicort 160/4.5mcg -) 2 puff IH BID [facility] Last Admin: 08/17/19 10:16 Dose: 2 puff Docusate Sodium (Colace -) 100 mg PO BID [facility] Last Admin: 08/17/19 10:14 Dose: 100 mg Famotidine (Pepcid -) 20 mg PO DAILY [facility] Last Admin: 08/17/19 10:14 Dose: 20 mg Ferrous Sulfate (Feosol -) 325 mg PO DAILY [facility] Last Admin: 08/17/19 10:14 Dose: 325 mg Furosemide (Lasix Injection -) 40 mg IVPUSH DAILY [facility] Last Admin: 08/17/19 10:15 Dose: Not Given Ceftriaxone Sodium 1 gm/ (Dextrose) 50 mls @ 100 mls/hr IVPB DAILY [facility] Last Admin: 08/17/19 10:16 Dose: 100 mls/hr Insulin Aspart (Novolog Vial Sliding Scale -) 1 vial SQ ACHS [facility]; Protocol Last Admin: 08/17/19 06:07 Dose: Not Given Levothyroxine Sodium (Synthroid -) 25 mcg PO DAILY@0700 [facility] Last Admin: 08/17/19 06:08 Dose: 25 mcg Metoprolol Tartrate (Lopressor -) 75 mg PO TID [facility] Last Admin: 08/17/19 06:09 Dose: 75 mg Non-Formulary Medication (Acetaminophen [Pain Relief]) 650 mg PO PRN PRN PRN Reason: PAIN Ranolazine (Ranexa -) 1,000 mg PO BID [facility] Last Admin: 08/17/19 10:16 Dose: 1,000 mg Rivaroxaban (Xarelto) 15 mg PO DAILY@1800 [facility] Last Admin: 08/16/19 18:57 Dose: 15 mg Silver Sulfadiazine (Silvadene -) 1 applic TP DAILY [facility] Last Admin: 08/16/19 18:57 Dose: Not Given - Objective Vital Signs: Vital Signs Temperature 97.8 F 08/17/19 01:52 Pulse Rate 97 H 08/17/19 06:00 Respiratory Rate 08/17/19 06:00 Blood Pressure 94/61 08/17/19 06:00 O2 Sat by Pulse Oximetry (%) 94 L 08/16/19 21:00 Constitutional: Yes: No Distress, Calm Neck: Yes: Supple Cardiovascular: Yes: Regular Rate and Rhythm Respiratory: Yes: Regular, Diminished Gastrointestinal: Yes: Normal Bowel Sounds, Soft Edema: No Labs: CBC, BMP 08/16/19 06:24 08/17/19 06:57 INR, PTT INR 0.96 (0.83-1.09) 08/14/19 23:00 - ....Imaging Chest X-ray: Report Reviewed (Mod right effusion with compressive ATX) EKG: Report Reviewed (Tele: Afib) Problem List - Problems (1) Chronic atrial fibrillation Code(s): I48.2 - CHRONIC ATRIAL FIBRILLATION * DO NOT USE * (2) CHF (congestive heart failure) Code(s): I50.9 - HEART FAILURE, UNSPECIFIED Qualifiers: Heart failure type: diastolic Heart failure chronicity: acute on chronic Qualified Code(s): I50.33 - Acute on chronic diastolic (congestive) heart failure (3) CKD (chronic kidney disease) Code(s): N18.9 - CHRONIC KIDNEY DISEASE, UNSPECIFIED (4) Diabetes Code(s): E11.9 - TYPE 2 DIABETES MELLITUS WITHOUT COMPLICATIONS Qualifiers: Diabetes mellitus type: type 2 Diabetes mellitus terminal makeup operator insulin use: without penitentiary use (5) Hx of CABG Code(s): Z95.1 - PRESENCE OF AORTOCORONARY BYPASS GRAFT (6) Hyperlipidemia Code(s): E78.5 - HYPERLIPIDEMIA, UNSPECIFIED Qualifiers: Hyperlipidemia type: pure hypercholesterolemia Qualified Code(s): E78.00 - Pure hypercholesterolemia, unspecified; E78.0 - Pure hypercholesterolemia (7) Hypertension Code(s): I10 - ESSENTIAL (PRIMARY) HYPERTENSION Qualifiers: Hypertension type: essential hypertension Qualified Code(s): I10 - Essential (primary) hypertension (8) Pleural effusion Code(s): J90 - PLEURAL EFFUSION, NOT ELSEWHERE CLASSIFIED Assessment/Plan 08/15/19 Echo: Normal LV size and fxn, mod cLVH LVEF 55%, mild dilated RV with mod decreased RV fxn, mild JUSTINO, mild MR, TR, 08/16/[address]: Large right>left efussion with compressive ATX 1. Chest pain with underlying CAD s/p PCI, CABG, elevated troponin referable to demand subendocardial ischemia 2. Persistent AF with variable ventricular response, [id number] score of 7 on DOAC 3. T2DM 4. Acute on chronic LV diastolic failure with R>L pleural effusion 5. HTN 6. Hypercholesterolemia 7. COPD 8. RESTREPO with cirrhosis 9. Chronic anemia with history of diverticular disease and gastritis 10. CKD 11. Abnormal TSH 12. Mild aortic stenosis PLAN: 1. IV diuresis with monitor diuretic response, renal fxn and electrolytes 2. Continue Metoprolol Tartrate 75 mg TID as tolerated 3. Continue Amiodarone 200 mg QD as tolerated. Continue Ranexa 1000 mg BID 4. Continue Xarelto 15 mg QD. Troponin peaked and downtrending 5. ASA 81 mg QD 6. Atorvastatin 40 mg QHS 7. Consider d/c empiric abx w/o clear signs of PNA 8. Can defer thoracentesis at this time as pt asymptomatic from effusion
[2019-08-17 10:50] LABS: PREALBUMIN 14.9 mg/dl (20-40)
--- NOTE | 2019-08-17 11:39 | PN ---
Progress Note (short form) - Note Progress Note: Dyspnea is improving. No CP. No acute events overnight. Intake & Output 08/14/19 08/15/19 08/16/19 08/17/19 23:59 23:59 23:59 23:59 Intake Total 520 0 Balance 520 0 Weight 140 lb 140 lb 134 lb 6.4 oz 123 lb 12.8 oz Last Vital Signs Temp Pulse Resp BP Pulse Ox 97.8 F 88 20 94/48 L 94 L 08/17/19 10:00 08/17/19 10:00 08/17/19 10:00 08/17/19 10:00 08/16/19 21:00 Active Medications Albuterol/Ipratropium (Duoneb -) 1 amp NEB Q4H PRN PRN Reason: SHORT OF BREATH/WHEEZING Amiodarone HCl (Cordarone -) 200 mg PO DAILY [facility] Last Admin: 08/17/19 10:15 Dose: 200 mg Aspirin (Asa -) 81 mg PO DAILY [facility] Last Admin: 08/17/19 10:14 Dose: 81 mg Atorvastatin Calcium (Lipitor -) 40 mg PO HS [facility] Last Admin: 08/16/19 22:07 Dose: 40 mg Budesonide/Formoterol Fumarate (Symbicort 160/4.5mcg -) 2 puff IH BID [facility] Last Admin: 08/17/19 10:16 Dose: 2 puff Docusate Sodium (Colace -) 100 mg PO BID [facility] Last Admin: 08/17/19 10:14 Dose: 100 mg Famotidine (Pepcid -) 20 mg PO DAILY [facility] Last Admin: 08/17/19 10:14 Dose: 20 mg Ferrous Sulfate (Feosol -) 325 mg PO DAILY [facility] Last Admin: 08/17/19 10:14 Dose: 325 mg Furosemide (Lasix Injection -) 40 mg IVPUSH DAILY [facility] Last Admin: 08/17/19 10:15 Dose: Not Given Ceftriaxone Sodium 1 gm/ (Dextrose) 50 mls @ 100 mls/hr IVPB DAILY [facility] Last Admin: 08/17/19 10:16 Dose: 100 mls/hr Insulin Aspart (Novolog Vial Sliding Scale -) 1 vial SQ ACHS [facility]; Protocol Last Admin: 08/17/19 06:07 Dose: Not Given Levothyroxine Sodium (Synthroid -) 25 mcg PO DAILY@0700 [facility] Last Admin: 08/17/19 06:08 Dose: 25 mcg Metoprolol Tartrate (Lopressor -) 75 mg PO TID [facility] Last Admin: 08/17/19 06:09 Dose: 75 mg Non-Formulary Medication (Acetaminophen [Pain Relief]) 650 mg PO PRN PRN PRN Reason: PAIN Ranolazine (Ranexa -) 1,000 mg PO BID [facility] Last Admin: 08/17/19 10:16 Dose: 1,000 mg Rivaroxaban (Xarelto) 15 mg PO DAILY@1800 [facility] Last Admin: 08/16/19 18:57 Dose: 15 mg Silver Sulfadiazine (Silvadene -) 1 applic TP DAILY [facility] Last Admin: 08/16/19 18:57 Dose: Not Given Gen: NAD at rest Heart: RRR Lung: decreased breath sounds at the bases Abd: soft, nontender Ext: no edema Laboratory Results - last 24 hr 08/16/19 08/16/19 08/16/19 06:24 13:40 19:01 Sodium Potassium Chloride Carbon Dioxide Anion Gap BUN Creatinine Est GFR (CKD-EPI)AfAm Est GFR (CKD-EPI)NonAf POC Glucometer 161 138 Random Glucose Hemoglobin A1c % 5.3 Calcium Total Bilirubin AST ALT Alkaline Phosphatase Total Protein Albumin Prealbumin 08/16/19 08/17/19 08/17/19 22:05 05:50 06:57 Sodium 137 Potassium 4.4 Chloride 99 Carbon Dioxide 33 H Anion Gap 5 L BUN 22.1 H Creatinine 1.0 Est GFR (CKD-EPI)AfAm 59.08 Est GFR (CKD-EPI)NonAf 50.97 POC Glucometer 116 130 Random Glucose 123 H Hemoglobin A1c % Calcium 9.5 Total Bilirubin 0.4 AST 20 ALT 17 Alkaline Phosphatase 89 Total Protein 5.6 L Albumin 2.4 L Prealbumin 14.9 L A/P Chest Pain +Troponins likely Demand Ischemia Acute on Chronic Diastolic Heart Failure Pleural Effusion likely from above Atrial Fibrillation Aortic Stenosis COPD Liver Cirrhosis HTN CKD Hypercholesterolemia - continue anticoagulation - rate controlled - pleural fluid studies in the past have been mixed with elevated protein but low LDH - would monitor effusion with diuresis - can defer thoracentesis at this time as pt asymptomatic from effusion Dr Resendiz
[2019-08-17] MEDS: SILVER SULFADIAZINE 1% TOP CREAM 50 GM JAR TP SCH (11:48)
[2019-08-17] MEDS ORDERED: MEROPENEM 1 GM in DEXTROSE 5%-WATER 100 ML IVPB ONE (15:33)
[2019-08-17] MEDS ORDERED: FUROSEMIDE 40 MG/4 ML INJECTABLE VIAL IVPUSH ONE (15:50)
[2019-08-17] MEDS ORDERED: MEROPENEM 1 GM VIAL (RESTRICTED TO ID) IVPB ONE (15:54)
[2019-08-17] MEDS ORDERED: DEXTROSE 5%-WATER 100 ML IVPB ONE (15:55)
[2019-08-17] MEDS: RIVAROXABAN 15 MG TABLET PO SCH (17:03)
--- NOTE | 2019-08-17 18:38 | PN ---
Physical Exam: SUBJECTIVE: Patient seen and examined. Feels that her breathing is a little bit better today. Denies chest pain, abd pain, or other concerns. Patient seen by Dr. Castillo today. OBJECTIVE: Vital Signs Period Temp Pulse Resp BP Sys/Cortes Pulse Ox Last 24 Hr 97.8 F-98 F 58-105 17-20 92-101/48-65 94-98 GENERAL: The patient is awake, alert, and fully oriented, in no acute distress. HEAD: Normal with no signs of trauma. EYES: EOMI, no scleral icterus, no ptosis ENT: MMM NECK: supple, trachea midline LUNGS: Diminished breath sounds R>L but improved compared to prior, no accessory muscle use HEART: RRR, murmur noted ABDOMEN: Soft, nondistended, normoactive bowel sounds, no guarding, no rebound. mild tenderness to palpation over RLQ EXTREMITIES: 2+ pulses, warm, well-perfused, no edema NEUROLOGICAL: Normal speech, gait not observed. PSYCH: Normal mood, normal affect. SKIN: Warm, dry, normal turgor, no rashes or lesions noted. Stage 1 sacral ulcer Laboratory Results - last 24 hr 08/16/19 08/16/19 08/17/19 19:01 22:05 05:50 Sodium Potassium Chloride Carbon Dioxide Anion Gap BUN Creatinine Est GFR (CKD-EPI)AfAm Est GFR (CKD-EPI)NonAf POC Glucometer 138 116 130 Random Glucose Calcium Total Bilirubin AST ALT Alkaline Phosphatase Total Protein Albumin Prealbumin 08/17/19 08/17/19 08/17/19 06:57 11:40 15:59 Sodium 137 Potassium 4.4 Chloride 99 Carbon Dioxide 33 H Anion Gap 5 L BUN 22.1 H Creatinine 1.0 Est GFR (CKD-EPI)AfAm 59.08 Est GFR (CKD-EPI)NonAf 50.97 POC Glucometer 153 118 Random Glucose 123 H Calcium 9.5 Total Bilirubin 0.4 AST 20 ALT 17 Alkaline Phosphatase 89 Total Protein 5.6 L Albumin 2.4 L Prealbumin 14.9 L Active Medications Generic Name Dose Route Start Last Admin Trade Name Freq PRN Reason Stop Dose Admin Acetaminophen 650 mg 08/17/19 13:30 Tylenol - PO DAILY PRN PAIN Albuterol/Ipratropium 1 amp 08/15/19 04:38 Duoneb - NEB Q4H PRN SHORT OF BREATH/WHEEZING Amiodarone HCl 200 mg 08/15/19 10:00 08/17/19 10:15 Cordarone - PO 200 mg DAILY JENNY Administration Aspirin 81 mg 08/16/19 10:00 08/17/19 10:14 Asa - PO 81 mg DAILY JENNY Administration Atorvastatin Calcium 40 mg 08/15/19 22:00 08/16/19 22:07 Lipitor - PO 40 mg HS JENNY Administration Budesonide/Formoterol Fumarate 2 puff 08/16/19 22:00 08/17/19 10:16 Symbicort 160/4.5mcg - IH 2 puff BID JENNY Administration Docusate Sodium 100 mg 08/15/19 10:00 08/17/19 10:14 Colace - PO 100 mg BID JENNY Administration Famotidine 20 mg 08/15/19 10:00 08/17/19 10:14 Pepcid - PO 20 mg DAILY JENNY Administration Ferrous Sulfate 325 mg 08/15/19 10:00 08/17/19 10:14 Feosol - PO 325 mg DAILY JENNY Administration Furosemide 40 mg 08/15/19 18:00 08/17/19 10:15 Lasix Injection - IVPUSH Not Given DAILY [facility] Insulin Aspart 1 vial 08/15/19 07:00 08/17/19 16:58 Novolog Vial Sliding Scale - SQ Not Given ACHS [facility] Protocol Levothyroxine Sodium 25 mcg 08/17/19 07:00 08/17/19 06:08 Synthroid - PO 25 mcg DAILY@0700 JENNY Administration Metoprolol Tartrate 75 mg 08/16/19 08:45 08/17/19 15:21 Lopressor - PO Not Given TID [facility] Ranolazine 1,000 mg 08/17/19 10:00 08/17/19 10:16 Ranexa - PO 1,000 mg BID [facility] Administration Rivaroxaban 15 mg 08/15/19 18:00 08/17/19 17:03 Xarelto PO 15 mg DAILY@1800 [facility] Administration Silver Sulfadiazine 1 applic 08/15/19 10:00 08/17/19 11:48 Silvadene - TP Not Given DAILY [facility] ASSESSMENT/PLAN: 84 y/o/f with PMHx of CAD( s/p PCI, CABG (2003)), HFpEF, HTN, DM, Hyperlipdemia , chronic right sided pleural effusions (s/p thoracocentesis), diverticulosis, gastritis, RESTREPO cirrhosis, and anxiety presented to the ED for chest discomfort. Pt is admitted to tele to r/o ACS. #R Pleural effusion 2/2 HFpEF vs hepatic hydrothorax - hx of past thoracentesis (last in January 2019) - Continue Lasix 40mg IV - Follow CXR - CT chest showing large right and smaller left pleural effusions with extensive atelectasis of the lower lobes. There are chronic lung changes noted biaterally with no definite evidence of pneumonia or acute pathology. 5mm nodule that is stable since prior studies on 02/01/19. - Pulmonology consulted (Dr. Reid), appreciate recs - pleural fluid studies in the past have been mixed with elevated protein but low LDH - would monitor effusion with diuresis - can defer thoracentesis at this time as patient is asymptomatic from effusion #UTI - (+) UA, UA growing lactose fermenting negative bacilli. Klebsiella Oxytoca - D/C ceftriaxone - Started on Meropenem (08/17) - Consulted ID (Dr. Barron) - Bladder/Renal U/S - couple of small non obstructing left renal stones with the largest measuring 8mm, both kidneys appear otherwise unremarkable #Chest pain, R/O ACS - Trop trended to peak and downtrend. Cardiology aware - Reported Lexiscan 01/25: no ischemia, LVEF 48% - Cardiology consulted, Dr. Sage - ECHO - EF 55%, moderate asymmetric left ventricular hypertrophy, right ventricle mildly dilated, RVEF moderately reduced - ASA 81mg daily - Continue Xarelto for now - EKG in Afib, nonspecific changes, no ST elevations - repeat EKGs without ST elevations noted - Ranexa 1000mg BID #Hypothyroid - TSH 20.3 -> 25 - Free T4 0.67 -> 0.66 - Started on Synthroid 25mg daily #HTN - Toprol 75 TID - Lasix 40 daily #DM - ISS, BGM - A1C #AFib - Xarelto 15mg daily - Amiodarone 200mg - Toprol 75 TID #Acute on chronic HFpEF; CAD s/p PCI, CABG - BNP >2000 on admission - Lasix 40 daily #Gastritis - can start Ranitadine if needed #COPD - c/w duonebs Q4h PRN, albuterol Q4h PRN #HLD - Atorvastatin 40mg #F/E/N - monitor and replete lytes as needed - sodium/diabetic diet #Prophylaxis - Xarelto #Disposition - trop trended to peak. Continuing IV diuresis for bilateral pleural effusions - Patient likely to need SNF on discharge Visit type - Emergency Visit Emergency Visit: Yes ED Registration Date: 08/15/19 Care time: The patient presented to the Emergency Department on the above date and was hospitalized for further evaluation of their emergent condition. - New Patient This patient is new to me today: No - Critical Care Critical Care patient: No ATTENDING PHYSICIAN STATEMENT I saw and evaluated the patient. I reviewed the resident's note and discussed the case with the resident. I agree with the resident's findings and plan as documented. SUBJECTIVE: OBJECTIVE: ASSESSMENT AND PLAN:
[2019-08-17] MEDS: ATORVASTATIN CA 40 MG TABLET (FP) PO SCH (21:52)
[2019-08-18 00:01] VITALS: BMI 19.8
[2019-08-18] MEDS: INSULIN SLIDING SCALE (NOVOLOG) 1 VIAL SQ SCH ×4 (06:14→22:11)
[2019-08-18] MEDS: ACETAMINOPHEN 325 MG TABLET (FP) PO PRN (06:26)
[2019-08-18] MEDS: LEVOTHYROXINE NA 25 MCG TABLET (FP) PO SCH (06:26)
[2019-08-18] MEDS: METOPROLOL TARTRATE 25 MG TABLET (FP) PO SCH ×3 (06:26→22:11)
--- NOTE | 2019-08-18 07:41 | PN ---
Physical Exam: SUBJECTIVE: Patient seen and examined. Complains of nausea but no abd pain. Denies chest pain, SOB, chills, fever. Patient had an episode of unsustained bradycardia overnight. OBJECTIVE: Vital Signs Period Temp Pulse Resp BP Sys/Cortes Pulse Ox Last 24 Hr 97.1 F-98 F 58-111 17-20 94-119/48-69 96-98 GENERAL: The patient is awake, alert, and fully oriented, in no acute distress. HEAD: Normal with no signs of trauma. EYES: EOMI, no scleral icterus, no ptosis ENT: MMM NECK: supple, trachea midline LUNGS: Diminished breath sounds at right base. no accessory muscle use HEART: RRR, murmur noted ABDOMEN: Soft, nondistended, normoactive bowel sounds, no guarding, no rebound EXTREMITIES: 2+ pulses, warm, well-perfused, no edema NEUROLOGICAL: Normal speech, gait not observed. PSYCH: Normal mood, normal affect. SKIN: Warm, dry, normal turgor, no rashes or lesions noted. Stage 1 sacral ulcer Laboratory Results - last 24 hr 08/17/19 08/17/19 08/17/19 06:57 11:40 15:59 Sodium 137 Potassium 4.4 Chloride 99 Carbon Dioxide 33 H Anion Gap 5 L BUN 22.1 H Creatinine 1.0 Est GFR (CKD-EPI)AfAm 59.08 Est GFR (CKD-EPI)NonAf 50.97 POC Glucometer 153 118 Random Glucose 123 H Calcium 9.5 Total Bilirubin 0.4 AST 20 ALT 17 Alkaline Phosphatase 89 Total Protein 5.6 L Albumin 2.4 L Prealbumin 14.9 L 08/17/19 08/18/19 21:54 05:48 Sodium Potassium Chloride Carbon Dioxide Anion Gap BUN Creatinine Est GFR (CKD-EPI)AfAm Est GFR (CKD-EPI)NonAf POC Glucometer 127 121 Random Glucose Calcium Total Bilirubin AST ALT Alkaline Phosphatase Total Protein Albumin Prealbumin Active Medications Generic Name Dose Route Start Last Admin Trade Name Freq PRN Reason Stop Dose Admin Acetaminophen 650 mg 08/17/19 13:30 08/18/19 06:26 Tylenol - PO 650 mg DAILY PRN Administration PAIN Albuterol/Ipratropium 1 amp 08/15/19 04:38 Duoneb - NEB Q4H PRN SHORT OF BREATH/WHEEZING Amiodarone HCl 200 mg 08/15/19 10:00 08/17/19 10:15 Cordarone - PO 200 mg DAILY JENNY Administration Aspirin 81 mg 08/16/19 10:00 08/17/19 10:14 Asa - PO 81 mg DAILY JENNY Administration Atorvastatin Calcium 40 mg 08/15/19 22:00 08/17/19 21:52 Lipitor - PO 40 mg HS JENNY Administration Budesonide/Formoterol Fumarate 2 puff 08/16/19 22:00 08/17/19 22:03 Symbicort 160/4.5mcg - IH 2 puff BID [facility] Administration Docusate Sodium 100 mg 08/15/19 10:00 08/17/19 21:52 Colace - PO 100 mg BID JENNY Administration Famotidine 20 mg 08/15/19 10:00 08/17/19 10:14 Pepcid - PO 20 mg DAILY [facility] Administration Ferrous Sulfate 325 mg 08/15/19 10:00 08/17/19 10:14 Feosol - PO 325 mg DAILY JENNY Administration Furosemide 40 mg 08/15/19 18:00 08/17/19 10:15 Lasix Injection - IVPUSH Not Given DAILY [facility] Insulin Aspart 1 vial 08/15/19 07:00 08/18/19 06:14 Novolog Vial Sliding Scale - SQ Not Given ACHS [facility] Protocol Levothyroxine Sodium 25 mcg 08/17/19 07:00 08/18/19 06:26 Synthroid - PO 25 mcg DAILY@0700 [facility] Administration Metoprolol Tartrate 75 mg 08/16/19 08:45 08/18/19 06:26 Lopressor - PO 75 mg TID JENNY Administration Ranolazine 1,000 mg 08/17/19 10:00 08/17/19 21:53 Ranexa - PO 1,000 mg BID [facility] Administration Rivaroxaban 15 mg 08/15/19 18:00 08/17/19 17:03 Xarelto PO 15 mg DAILY@1800 [facility] Administration Silver Sulfadiazine 1 applic 08/15/19 10:00 08/17/19 11:48 Silvadene - TP Not Given DAILY [facility] ASSESSMENT/PLAN: 84 y/o/f with PMHx of CAD( s/p PCI, CABG (2003)), HFpEF, HTN, DM, Hyperlipdemia , chronic right sided pleural effusions (s/p thoracocentesis), diverticulosis, gastritis, RESTREPO cirrhosis, and anxiety presented to the ED for chest discomfort. Pt is admitted to tele to r/o ACS. #R Pleural effusion 2/2 HFpEF vs hepatic hydrothorax - hx of past thoracentesis (last in January 2019) - Continue Lasix 40mg IV - Follow CXR - CT chest showing large right and smaller left pleural effusions with extensive atelectasis of the lower lobes. There are chronic lung changes noted biaterally with no definite evidence of pneumonia or acute pathology. 5mm nodule that is stable since prior studies on 02/01/19. - Pulmonology consulted (Dr. Reid), appreciate recs - pleural fluid studies in the past have been mixed with elevated protein but low LDH - would monitor effusion with diuresis - can defer thoracentesis at this time as patient is asymptomatic from effusion #UTI - (+) UA, UA growing lactose fermenting negative bacilli. Klebsiella Oxytoca - D/C ceftriaxone, Meropenem - Patient switched to Ertapenem as per ID - Consulted ID (Dr. Barron) - Bladder/Renal U/S - couple of small non obstructing left renal stones with the largest measuring 8mm, both kidneys appear otherwise unremarkable #Chest pain, R/O ACS - Trop trended to peak and downtrend. Cardiology aware - Reported Lexiscan 01/25: no ischemia, LVEF 48% - Cardiology consulted, Dr. Sage - ECHO - EF 55%, moderate asymmetric left ventricular hypertrophy, right ventricle mildly dilated, RVEF moderately reduced - ASA 81mg daily - Continue Xarelto 15mg daily - EKG in Afib, nonspecific changes, no ST elevations - repeat EKGs without ST elevations noted - Ranexa 1000mg BID #Hypothyroid - TSH 20.3 -> 25 - Free T4 0.67 -> 0.66 - Started on Synthroid 25mg daily #HTN - Toprol 75 TID - Lasix 40 daily #DM - ISS, BGM - A1C #AFib - Xarelto 15mg daily - Amiodarone 200mg - Toprol 75 TID #Acute on chronic HFpEF; CAD s/p PCI, CABG - BNP >2000 on admission - Lasix 40 daily #Gastritis - can start Ranitadine if needed #COPD - c/w duonebs Q4h PRN, albuterol Q4h PRN #HLD - Atorvastatin 40mg #F/E/N - monitor and replete lytes as needed - sodium/diabetic diet #Prophylaxis - Xarelto #Disposition - trop trended to peak. Continuing IV diuresis for bilateral pleural effusions - Patient likely to need SNF on discharge Visit type - Emergency Visit Emergency Visit: Yes ED Registration Date: 08/15/19 Care time: The patient presented to the Emergency Department on the above date and was hospitalized for further evaluation of their emergent condition. - New Patient This patient is new to me today: No - Critical Care Critical Care patient: No ATTENDING PHYSICIAN STATEMENT I saw and evaluated the patient. I reviewed the resident's note and discussed the case with the resident. I agree with the resident's findings and plan as documented. SUBJECTIVE: OBJECTIVE: ASSESSMENT AND PLAN:
[2019-08-18 08:04] LABS: ALBUMIN 2.3 g/dl (3.4-5.0); BILIRUBIN,TOTAL 0.4 mg/dL (0.2-1); BLOOD UREA NITROGEN 20.5 mg/dL (7-18); CALCIUM 9.3 mg/dL (8.5-10.1); CREATININE 0.9 mg/dL (0.55-1.3); POTASSIUM 3.4 mmol/L (3.5-5.1); TOT PROT 5.6 g/dl (6.4-8.2)
[2019-08-18] MEDS ORDERED: POTASSIUM CHLORIDE TABS 20 MEQ TABLET.ER (FP) PO ONE ×2 (08:39→15:00)
[2019-08-18] MEDS ORDERED: PROCHLORPERAZINE INJECTION 10 MG/2 ML VIAL IM ONE (09:30)
--- NOTE | 2019-08-18 09:41 | PN ---
Progress Note, Physician History of Present Illness: No further chest pain, dyspnea improving with diuresis. - Current Medication List Current Medications: Active Medications Acetaminophen (Tylenol -) 650 mg PO DAILY PRN PRN Reason: PAIN Last Admin: 08/18/19 06:26 Dose: 650 mg Albuterol/Ipratropium (Duoneb -) 1 amp NEB Q4H PRN PRN Reason: SHORT OF BREATH/WHEEZING Amiodarone HCl (Cordarone -) 200 mg PO DAILY [facility] Last Admin: 08/17/19 10:15 Dose: 200 mg Aspirin (Asa -) 81 mg PO DAILY [facility] Last Admin: 08/17/19 10:14 Dose: 81 mg Atorvastatin Calcium (Lipitor -) 40 mg PO HS [facility] Last Admin: 08/17/19 21:52 Dose: 40 mg Budesonide/Formoterol Fumarate (Symbicort 160/4.5mcg -) 2 puff IH BID [facility] Last Admin: 08/17/19 22:03 Dose: 2 puff Docusate Sodium (Colace -) 100 mg PO BID [facility] Last Admin: 08/17/19 21:52 Dose: 100 mg Famotidine (Pepcid -) 20 mg PO DAILY [facility] Last Admin: 08/17/19 10:14 Dose: 20 mg Ferrous Sulfate (Feosol -) 325 mg PO DAILY [facility] Last Admin: 08/17/19 10:14 Dose: 325 mg Furosemide (Lasix Injection -) 40 mg IVPUSH DAILY [facility] Last Admin: 08/17/19 10:15 Dose: Not Given Insulin Aspart (Novolog Vial Sliding Scale -) 1 vial SQ [facility]; Protocol Last Admin: 08/18/19 06:14 Dose: Not Given Levothyroxine Sodium (Synthroid -) 25 mcg PO DAILY@0700 [facility] Last Admin: 08/18/19 06:26 Dose: 25 mcg Metoprolol Tartrate (Lopressor -) 75 mg PO TID [facility] Last Admin: 08/18/19 06:26 Dose: 75 mg Potassium Chloride (K-Dur -) 40 meq PO ONCE ONE Stop: 08/18/19 15:01 Ranolazine (Ranexa -) 1,000 mg PO BID [facility] Last Admin: 08/17/19 21:53 Dose: 1,000 mg Rivaroxaban (Xarelto) 15 mg PO DAILY@1800 [facility] Last Admin: 08/17/19 17:03 Dose: 15 mg Silver Sulfadiazine (Silvadene -) 1 applic TP DAILY [facility] Last Admin: 08/17/19 11:48 Dose: Not Given - Objective Vital Signs: Vital Signs Temperature 97.2 F L 08/18/19 06:00 Pulse Rate 111 H 08/18/19 06:00 Respiratory Rate 08/18/19 06:00 Blood Pressure 119/66 08/18/19 06:00 O2 Sat by Pulse Oximetry (%) 96 08/17/19 21:00 Constitutional: Yes: No Distress, Calm Neck: Yes: Supple Cardiovascular: Yes: Regular Rate and Rhythm Respiratory: Yes: Regular, Diminished Gastrointestinal: Yes: Normal Bowel Sounds, Soft Edema: No Labs: CBC, BMP 08/16/19 06:24 08/18/19 06:00 INR, PTT INR 0.96 (0.83-1.09) 08/14/19 23:00 Problem List - Problems (1) Chronic atrial fibrillation Code(s): I48.2 - CHRONIC ATRIAL FIBRILLATION * DO NOT USE * (2) CHF (congestive heart failure) Code(s): I50.9 - HEART FAILURE, UNSPECIFIED Qualifiers: Heart failure type: diastolic Heart failure chronicity: acute on chronic Qualified Code(s): I50.33 - Acute on chronic diastolic (congestive) heart failure (3) CKD (chronic kidney disease) Code(s): N18.9 - CHRONIC KIDNEY DISEASE, UNSPECIFIED (4) Diabetes Code(s): E11.9 - TYPE 2 DIABETES MELLITUS WITHOUT COMPLICATIONS Qualifiers: Diabetes mellitus type: type 2 Diabetes mellitus [employer] insulin use: without alf use (5) Hx of CABG Code(s): Z95.1 - PRESENCE OF AORTOCORONARY BYPASS GRAFT (6) Hyperlipidemia Code(s): E78.5 - HYPERLIPIDEMIA, UNSPECIFIED Qualifiers: Hyperlipidemia type: pure hypercholesterolemia Qualified Code(s): E78.00 - Pure hypercholesterolemia, unspecified; E78.0 - Pure hypercholesterolemia (7) Hypertension Code(s): I10 - ESSENTIAL (PRIMARY) HYPERTENSION Qualifiers: Hypertension type: essential hypertension Qualified Code(s): I10 - Essential (primary) hypertension (8) Pleural effusion Code(s): J90 - PLEURAL EFFUSION, NOT ELSEWHERE CLASSIFIED Assessment/Plan 08/15/19 Echo: Normal LV size and fxn, mod cLVH LVEF 55%, mild dilated RV with mod decreased RV fxn, mild JUSTINO, mild MR, TR, 08/16/[address]: Large right>left efussion with compressive ATX 1. Chest pain with underlying CAD s/p PCI, CABG, elevated troponin referable to demand subendocardial ischemia 2. Persistent AF with variable ventricular response, [id number] score of 7 on DOAC 3. T2DM 4. Acute on chronic LV diastolic failure with R>L pleural effusion 5. HTN 6. Hypercholesterolemia 7. COPD 8. RESTREPO with cirrhosis 9. Chronic anemia with history of diverticular disease and gastritis 10. CKD 11. Abnormal TSH 12. Mild aortic stenosis 13. Klebsiella UTI PLAN: 1. IV diuresis with monitor diuretic response, renal fxn and electrolytes 2. Continue Metoprolol Tartrate 75 mg TID as tolerated 3. Continue Amiodarone 200 mg QD as tolerated. Continue Ranexa 1000 mg BID 4. Continue Xarelto 15 mg QD. Troponin peaked and downtrending 5. ASA 81 mg QD 6. Atorvastatin 40 mg QHS 7. Empiric abx course per ID recs 8. Can defer thoracentesis at this time as pt asymptomatic from effusion
--- NOTE | 2019-08-18 09:42 | PN ---
Progress Note (short form) - Note Progress Note: Hospitalist to document today. UTI: Esbl on isolation Nausea today; Hx GB calculi on sono 2018. Zofran PRN; would not give IM Rx when on Xarelto.
[2019-08-18 11:38] LABS: MAGNESIUM 2.1 mg/dL (1.8-2.4)
--- NOTE | 2019-08-18 11:41 | PN ---
Progress Note (short form) - Note Progress Note: Dyspnea is improving. No CP. No acute events overnight. Intake & Output 08/15/19 08/16/19 08/17/19 08/18/19 23:59 23:59 23:59 23:59 Intake Total 520 0 1010 120 Balance 520 0 1010 120 Weight 140 lb 134 lb 6.4 oz 123 lb Last Vital Signs Temp Pulse Resp BP Pulse Ox 97.2 F L 111 H 20 119/66 96 08/18/19 06:00 08/18/19 06:00 08/18/19 06:00 08/18/19 06:00 08/17/19 21:00 Active Medications Acetaminophen (Tylenol -) 650 mg PO DAILY PRN PRN Reason: PAIN Last Admin: 08/18/19 06:26 Dose: 650 mg Albuterol/Ipratropium (Duoneb -) 1 amp NEB Q4H PRN PRN Reason: SHORT OF BREATH/WHEEZING Amiodarone HCl (Cordarone -) 200 mg PO DAILY [facility] Last Admin: 08/17/19 10:15 Dose: 200 mg Aspirin (Asa -) 81 mg PO DAILY [facility] Last Admin: 08/17/19 10:14 Dose: 81 mg Atorvastatin Calcium (Lipitor -) 40 mg PO HS [facility] Last Admin: 08/17/19 21:52 Dose: 40 mg Budesonide/Formoterol Fumarate (Symbicort 160/4.5mcg -) 2 puff IH BID [facility] Last Admin: 08/17/19 22:03 Dose: 2 puff Docusate Sodium (Colace -) 100 mg PO BID [facility] Last Admin: 08/17/19 21:52 Dose: 100 mg Famotidine (Pepcid -) 20 mg PO DAILY [facility] Last Admin: 08/17/19 10:14 Dose: 20 mg Ferrous Sulfate (Feosol -) 325 mg PO DAILY [facility] Last Admin: 08/17/19 10:14 Dose: 325 mg Furosemide (Lasix Injection -) 40 mg IVPUSH DAILY [facility] Last Admin: 08/17/19 10:15 Dose: Not Given Insulin Aspart (Novolog Vial Sliding Scale -) 1 vial SQ ACHS [facility]; Protocol Last Admin: 08/18/19 06:14 Dose: Not Given Levothyroxine Sodium (Synthroid -) 25 mcg PO DAILY@0700 [facility] Last Admin: 08/18/19 06:26 Dose: 25 mcg Metoprolol Tartrate (Lopressor -) 75 mg PO TID [facility] Last Admin: 08/18/19 06:26 Dose: 75 mg Potassium Chloride (K-Dur -) 40 meq PO ONCE ONE Stop: 08/18/19 15:01 Ranolazine (Ranexa -) 1,000 mg PO BID [facility] Last Admin: 08/17/19 21:53 Dose: 1,000 mg Rivaroxaban (Xarelto) 15 mg PO DAILY@1800 [facility] Last Admin: 08/17/19 17:03 Dose: 15 mg Silver Sulfadiazine (Silvadene -) 1 applic TP DAILY [facility] Last Admin: 08/17/19 11:48 Dose: Not Given Gen: NAD at rest Heart: RRR Lung: decreased breath sounds at the bases Abd: soft, nontender Ext: no edema Laboratory Results - last 24 hr 08/17/19 08/17/19 08/17/19 11:40 15:59 21:54 Sodium Potassium Chloride Carbon Dioxide Anion Gap BUN Creatinine Est GFR (CKD-EPI)AfAm Est GFR (CKD-EPI)NonAf POC Glucometer 153 118 127 Random Glucose Calcium Magnesium Total Bilirubin AST ALT Alkaline Phosphatase Total Protein Albumin 08/18/19 08/18/19 05:48 06:00 Sodium 135 L Potassium 3.4 L Chloride 98 Carbon Dioxide 29 Anion Gap 8 BUN 20.5 H Creatinine 0.9 Est GFR (CKD-EPI)AfAm 67.10 Est GFR (CKD-EPI)NonAf 57.90 POC Glucometer 121 Random Glucose 106 Calcium 9.3 Magnesium 2.1 Total Bilirubin 0.4 AST 20 ALT 18 Alkaline Phosphatase 83 Total Protein 5.6 L Albumin 2.3 L A/P Chest Pain +Troponins likely Demand Ischemia Acute on Chronic Diastolic Heart Failure Pleural Effusion likely from above Atrial Fibrillation Aortic Stenosis COPD Liver Cirrhosis HTN CKD Hypercholesterolemia - continue anticoagulation - rate controlled - pleural fluid studies in the past have been mixed with elevated protein but low LDH - would monitor effusion with diuresis - can defer thoracentesis at this time as pt asymptomatic from effusion Dr Resendiz
[2019-08-18] MEDS: FUROSEMIDE 40 MG/4 ML INJECTABLE VIAL IVPUSH SCH (11:46)
[2019-08-18] MEDS: BUDESONIDE/FORMETEROL FUMARATE 160/4.5 mcg INHALER IH SCH ×2 (11:46→22:12)
[2019-08-18] MEDS: SILVER SULFADIAZINE 1% TOP CREAM 50 GM JAR TP SCH (11:46)
--- NOTE | 2019-08-18 12:00 | CON.ID ---
Consult Consult Specialty:: infectious diseases Referred by:: hospitalist Reason for Consultation:: esbl uti - History of Present Illness Chief Complaint: weakness,nausea,chest pain History of Present Illness: 84 year old female PMH of CAD( s/p PCI, CABG (2003)), HFpEF, HTN, DM, Hyperlipdemia, chronic right sided pleural effusions (s/p thoracocentesis), diverticulosis, gastritis, RESTREPO cirrhosis, and anxiety admitted due to "pain in [her] left arm and chest pains". Pain began as pt was resting in bed. Left arm pain felt "like a knot" and she described her CP as a "tight" feeling. Pt reports she sat still to relieve the pain which did not make a difference. No aggravating factors identified. No other treatments tried. Ms. Alexis rated her arm and chest pain an 8/10 during the event and states it is now a 0/10 and has been relieved. An identical event occurred 6 months ago, when Ms. Alexis was admitted [facility]. pt denies sob, headache, dizziness, n/v. the above was the history on admission patient was then worked up and found to have esbl uti patient is also c/o of feeling greatly nauseous - History Source History Provided By: Patient, Family Member Limitations to Obtaining History: No Limitations - Past Medical History Cardio/Vascular: Yes: AFIB, CAD, CHF, HTN, Hyperlipdemia Pulmonary: Yes: COPD, Other (Stable lung nodules) Gastrointestinal: Yes: Diverticulosis, Gastritis Hepatobiliary: Yes: Cirrhosis (RESTREPO related), Cholelithiasis, Other (Mevacor induced hepatitis in 1994) Psych: Yes: Anxiety Endocrine: Yes: Diabetes Mellitus Additional Medical History: Mesenteric mass of undetermined etiology since 2016 - Past Surgical History Past Surgical History: Yes: CABG, Hysterectomy - Alcohol/Substance Use Hx Alcohol Use: No History of Substance Use: reports: None - Smoking History Smoking history: Unknown if ever smoked Have you smoked in the past 12 months: No Aproximately how many cigarettes per day: 0 If you are a former smoker, when did you quit?: 1981 - Social History Usual Living Arrangement: Alone ADL: Independent 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 History of Recent Travel: No Home Medications - Allergies Allergies/Adverse Reactions: Allergies Allergy/AdvReac Type Severity Reaction Status Date / Time pollen extracts Allergy Unknown Verified 02/01/19 18:48 HONEYDEW Allergy Severe Difficulty Uncoded 02/01/19 18:48 Breathing HAYFEVER,GRASS,POLLEN Allergy Uncoded 02/01/19 18:48 - Home Medications Home Medications: Ambulatory Orders Folic Acid - 400 mcg PO ASDIR 02/16/12 Furosemide [Lasix -] 20 mg PO DAILY 03/18/16 Glucosamine/D3/Boswellia Eda [Osteo Bi-Flex Caplet] 1 tab PO BID 03/18/16 Iron,Carbonyl [Feosol] 65 mg PO DAILY 03/18/16 Mometasone Furoate [Asmanex] 220 mcg IH BID PRN 03/18/16 Cyanocobalamin (Vitamin B-12) [Vitamin B-12] 1,000 mcg PO DAILY 02/01/19 Vitamin E 1 tab PO DAILY 02/01/19 Amiodarone HCl [Cordarone -] 200 mg PO DAILY tablet 03/27/19 Docusate Sodium [Colace -] 100 mg PO BID capsule 03/27/19 Insulin Sliding Scale [Novolog Vial Sliding Scale -] 1 vial SQ ACHS units 03/27 Polyethylene Glycol 3350 [Miralax 119 gm Btl -] 17 gm PO BID bottle 03/27/19 Rivaroxaban [Xarelto] 15 mg PO DAILY@1800 tablet 03/27/19 Acetaminophen [Pain Relief] 650 mg PO PRN PRN 08/15/19 Albuterol 2.5/Ipratropium 0.5 [Duoneb -] 1 neb NEB Q4H PRN 08/15/19 Atorvastatin Calcium 40 mg PO DAILY 08/15/19 Famotidine [Pepcid -] 40 mg PO DAILY 08/15/19 Metoprolol Tartrate 50 mg PO DAILY 08/15/19 Ranitidine HCl [Acid Scientific Technical Writer] 150 mg PO DAILY 08/15/19 Ranolazine [Ranexa -] 500 mg PO BID 08/15/19 Silver Sulfadiazine [Silvadene] 1,000 gm TP DAILY 08/15/19 Review of Systems - Review of Systems Constitutional: reports: Weakness Eyes: reports: No Symptoms HENT: reports: No Symptoms Neck: reports: No Symptoms Cardiovascular: reports: Chest Pain Respiratory: reports: No Symptoms Gastrointestinal: reports: No Symptoms Genitourinary: reports: No Symptoms Musculoskeletal: reports: No Symptoms Integumentary: reports: No Symptoms Neurological: reports: No Symptoms Endocrine: reports: No Symptoms Hematology/Lymphatic: reports: No Symptoms Psychiatric: reports: No Symptoms Physical Exam Vital Signs: Vital Signs Temperature 97.2 F L 08/18/19 06:00 Pulse Rate 111 H 08/18/19 06:00 Respiratory Rate 08/18/19 06:00 Blood Pressure 119/66 08/18/19 06:00 O2 Sat by Pulse Oximetry (%) 96 08/17/19 21:00 Constitutional: Yes: Calm, Mild Distress Cardiovascular: Yes: Pulse Irregular, S1, S2 Respiratory: Yes: Regular, On Nasal O2, Poor Air Entry Gastrointestinal: Yes: Normal Bowel Sounds, Soft Musculoskeletal: Yes: WNL Extremities: Yes: WNL Neurological: Yes: Alert, Oriented Psychiatric: Yes: Alert, Oriented Labs: CBC, BMP 08/16/19 06:24 08/18/19 06:00 Imaging - Results Chest X-ray: Report Reviewed, Image Reviewed Cat Scan: Report Reviewed, Image Reviewed Assessment/Plan Chest Pain +Troponins Acute on Chronic Diastolic Heart Failure Pleural Effusion likely from above Atrial Fibrillation Aortic Stenosis COPD Liver Cirrhosis HTN CKD Hypercholesterolemia uti plan will start patient on ertapenam will see how patient does rest as per the team
[2019-08-18] MEDS: AMIODARONE HCL 200 MG TABLET PO SCH (12:07)
[2019-08-18] MEDS: FERROUS SO4 325 MG TABLET (FP) PO SCH (12:07)
[2019-08-18] MEDS: ASPIRIN 81 MG CHEWABLE TABLETS PO SCH (12:07)
[2019-08-18] MEDS: RANOLAZINE E.R. 500 MG TABLET (FP) PO SCH ×2 (12:07→22:11)
[2019-08-18] MEDS: DOCUSATE SODIUM 100 MG CAPSULE (FP) PO SCH ×2 (12:07→22:11)
[2019-08-18] MEDS: FAMOTIDINE 20 MG TABLET PO SCH (12:07)
--- NOTE | 2019-08-18 12:55 | PN ---
Teaching Attending Note Name of Resident: María Casarez ATTENDING PHYSICIAN STATEMENT I saw and evaluated the patient. I reviewed the resident's note and discussed the case with the resident. I agree with the resident's findings and plan as documented. Patient is noted to have positive culture for ESBL organism. The patient is at risk for decompensation without ongoing treatment with broad-spectrum antibiotics per ID, following up with their service. Appreciate expert opinion. Once final course of antibiotics is determined, we can elucidate placement. 10 sys ROS done and negative aside from HPI OBJECTIVE: VS, labs, imaging reviewed NAD, AAO, resting comfortably in bed. Slightly more interactive but still forgetful RRR s1/2 no mgr Normal muscle tone, moves all 5 extremities with normal apparent strength Neck is supple, trachea midline, no karolyn LN Lungs CTAB with sym expansion NT ND +BS no karolyn organomegaly CN2-12 wnl; no FND NC AT EOMI PERRLA Normal mood, appropriate behavior, euthymic affect No skin breakdown or rashes noted Telemetry reviewed EKG reviewed 08/16/2019: Reveals prolonged QT at 526 with noted atrial fibrillation. CT shows large right and smaller left pleural effusions with extensive atelectasis of lower lobes with chronic lung changes noted bilaterally with no definitive evidence of pneumonia or acute pathology Chest x-ray 08/17/2019 discussed above CXR reviewed; no significant changes from admission seen on the CXR with persisting R-effusion/R-infiltrative changes seen with post-CABG changes noted Echocardiogram is technically difficult with many images suboptimal in quality with moderate asymmetric left LVH, right ventricular dilation, RV systolic function moderately reduced with normal RVSP and mild aortic stenosis with no significant changes seen from 02/02/2019 study. Renal/Bladder US reviewed; multiple nonobstructing stones with the largest being 8mm noted. Swallow evaluation pending Microbiology 08/15/19 01:05 Urine - Urine Clean Catch Urine Culture - Final Klebsiella Oxytoca - Esbl A/P: Presents with NSTEMI (2 vs. 1) and acute on chronic CHF exacerbation (R sided and LVDD on echo); continues on lasix. Potential UTI With over 100,000 CFU lactose fermenting gram-negative bacilli noted. Tolerated the thousand gram twice daily Ranexa, continuing Xarelto, aspirin, statin. Will require prolonged course of IV antibiotics with broad-spectrum coverage for the ESBL positive Klebsiella UTI Problems include: -Acute cystitis, complicated, secondary to ESBL positive Klebsiella. We will complete the course of IV antibiotics as per infectious disease. -Acute respiratory failure 2/2 CHF exacerbation -R-pleural effusion (Tap in 02/2019 with mixed effusion with low LDH noted and high protein; monitoring with diuresis and no significant changes noted on CXR. Per pulm can defer repeat thoracentesis at this time as she is asymptomatic. Will discuss with their service) -UTI (FU Cultures; multiple nonobstructing stones with the largest being 8mm noted. On ceftriaxone.) -NSTEMI (Type II vs. Type I in the setting of hx CAD s/p CABG, PCI) (FU with CV. Echo noted above. Continue xarelto, ranexa 1000 BID, atorva 40mg Abnormal TSH (TSH 25 and FT4 is 0.66; Continue thyroid replacement and follow- up TSH outpatient per protocol. Can FU with PCP and OP endocrine) History of mild History of atrial fibrillation on Xarelto (CV2 score =7; continue xarelto, amiodarone, MT. Was previously on 100 TID MT;Continue 75 and will FU with CV) History of coronary artery disease status post CABG, PCI as discussed above History of R-sided CHF with LV-Diastolic Dysfunction History of hypertension History of hyperlipidemia (Atorva 40mg PO QD) History of COPD, remote former sleepwalker with stable lung nodules, no acute issues History of gastritis History of diverticulosis History of cirrhosis secondary to nonalcoholic steatohepatitis History of cholelithiasis History of Mevacor induced hepatitis in 1994 History of anemia History of anxiety History of diabetes mellitus Renal stones (discussed above) History of mesenteric mass of undetermined etiology since 2016, status post hysterectomy History of MCI Hypoalbuminemia Severe protein-calorie malnutrition History of orthostasis Code Status Reviewed ASSESSMENT AND PLAN:
[2019-08-18] MEDS ORDERED: PT OWN MED DRAWER 7, Y5N ONE ×2 (13:30→14:05)
[2019-08-18] MEDS: ERTAPENEM SODIUM 1 GM in SODIUM CHLORIDE 50 ML IVPB SCH (13:32)
[2019-08-18] MEDS: RIVAROXABAN 15 MG TABLET PO SCH (17:32)
[2019-08-18] MEDS: ATORVASTATIN CA 40 MG TABLET (FP) PO SCH (22:11)
[2019-08-19] MEDS: INSULIN SLIDING SCALE (NOVOLOG) 1 VIAL SQ SCH ×4 (06:28→21:35)
[2019-08-19] MEDS: LEVOTHYROXINE NA 25 MCG TABLET (FP) PO SCH (06:44)
[2019-08-19] MEDS: METOPROLOL TARTRATE 25 MG TABLET (FP) PO SCH ×3 (06:44→21:36)
[2019-08-19] MEDS ORDERED: PT OWN MED DRAWER 7, Y5N ONE ×2 (08:56→17:33)
--- NOTE | 2019-08-19 09:20 | PN ---
Progress Note, Physician History of Present Illness: Patient is an 84 year old female well known to our service with underlying history of CAD s/p PCI, CABG (2003), AF currently on DOAC (Xarelto), HTN, hypercholesterolemia, history of pleural effusion s/p thoracentesis, diverticular disease, anemia, diastolic heart failure and COPD who presents with chest discomflrt and left arm pain. Since then it has resolved and currently she appears comfortable. Troponin was elevated to 0.59. She denies paroxysmal nocturnal dyspnea or orthopnea. She denies shortness of breath or palpitations. She denies fever or chills. She denies nausea, vomiting diarrhea or abdominal pain. She denies headache or lightheadedness. - Current Medication List Current Medications: Active Medications Acetaminophen (Tylenol -) 650 mg PO DAILY PRN PRN Reason: PAIN Last Admin: 08/18/19 06:26 Dose: 650 mg Albuterol/Ipratropium (Duoneb -) 1 amp NEB Q4H PRN PRN Reason: SHORT OF BREATH/WHEEZING Amiodarone HCl (Cordarone -) 200 mg PO DAILY [facility] Last Admin: 08/18/19 12:07 Dose: 200 mg Aspirin (Asa -) 81 mg PO DAILY [facility] Last Admin: 08/18/19 12:07 Dose: 81 mg Atorvastatin Calcium (Lipitor -) 40 mg PO HS [facility] Last Admin: 08/18/19 22:11 Dose: 40 mg Budesonide/Formoterol Fumarate (Symbicort 160/4.5mcg -) 2 puff IH BID [facility] Last Admin: 08/18/19 22:12 Dose: 2 puff Docusate Sodium (Colace -) 100 mg PO BID [facility] Last Admin: 08/18/19 22:11 Dose: 100 mg Famotidine (Pepcid -) 20 mg PO DAILY [facility] Last Admin: 08/18/19 12:07 Dose: 20 mg Ferrous Sulfate (Feosol -) 325 mg PO DAILY [facility] Last Admin: 08/18/19 12:07 Dose: 325 mg Furosemide (Lasix Injection -) 40 mg IVPUSH DAILY [facility] Last Admin: 08/18/19 11:46 Dose: 40 mg Ertapenem 1 gm/ Sodium (Chloride) 50 mls @ 100 mls/hr IVPB DAILY [facility] Last Admin: 08/18/19 13:32 Dose: 100 mls/hr Insulin Aspart (Novolog Vial Sliding Scale -) 1 vial SQ ACHS [facility]; Protocol Last Admin: 08/19/19 06:28 Dose: Not Given Levothyroxine Sodium (Synthroid -) 25 mcg PO DAILY@0700 [facility] Last Admin: 08/19/19 06:44 Dose: 25 mcg Metoprolol Tartrate (Lopressor -) 75 mg PO TID [facility] Last Admin: 08/19/19 06:44 Dose: 75 mg Ranolazine (Ranexa -) 1,000 mg PO BID [facility] Last Admin: 08/18/19 22:11 Dose: 1,000 mg Rivaroxaban (Xarelto) 15 mg PO DAILY@1800 [facility] Last Admin: 08/18/19 17:32 Dose: 15 mg Silver Sulfadiazine (Silvadene -) 1 applic TP DAILY [facility] Last Admin: 08/18/19 11:46 Dose: Not Given - Objective Vital Signs: Vital Signs Temperature 98.0 F 08/19/19 06:00 Pulse Rate 75 08/19/19 06:00 Respiratory Rate 18 08/19/19 06:00 Blood Pressure 128/66 08/19/19 06:00 O2 Sat by Pulse Oximetry (%) 98 08/18/19 20:36 Eyes: Yes: WNL, Conjunctiva Clear, EOM Intact HENT: Yes: WNL, Atraumatic, Normocephalic Neck: Yes: WNL, Supple, Trachea Midline Cardiovascular: Yes: Pulse Irregular, Murmur Respiratory: Yes: WNL, Regular, CTA Bilaterally Gastrointestinal: Yes: WNL, Normal Bowel Sounds Genitourinary: Yes: WNL Musculoskeletal: Yes: WNL Extremities: Yes: WNL Edema: No Integumentary: Yes: WNL Neurological: Yes: WNL, Alert, Oriented ...Motor Strength: WNL Psychiatric: Yes: WNL Labs: CBC, BMP 08/16/19 06:24 08/18/19 06:00 INR, PTT INR 0.96 (0.83-1.09) 08/14/19 23:00 Problem List - Problems (1) ACS (acute coronary syndrome) Code(s): I24.9 - ACUTE ISCHEMIC HEART DISEASE, UNSPECIFIED (2) Chronic atrial fibrillation Code(s): I48.2 - CHRONIC ATRIAL FIBRILLATION * DO NOT USE * (3) Abnormal TSH Code(s): R79.89 - OTHER SPECIFIED ABNORMAL FINDINGS OF BLOOD CHEMISTRY (4) Drelh-pl-lbijjaj kidney injury Code(s): N17.9 - ACUTE KIDNEY FAILURE, UNSPECIFIED; N18.9 - CHRONIC KIDNEY DISEASE, UNSPECIFIED Qualifiers: Chronic kidney disease stage: stage 2 (mild) (5) Anemia Code(s): D64.9 - ANEMIA, UNSPECIFIED Qualifiers: Anemia type: unspecified type Qualified Code(s): D64.9 - Anemia, unspecified (6) Anorexia Code(s): R63.0 - ANOREXIA (7) CHF (congestive heart failure) Code(s): I50.9 - HEART FAILURE, UNSPECIFIED Qualifiers: Heart failure type: diastolic Heart failure chronicity: acute on chronic Qualified Code(s): I50.33 - Acute on chronic diastolic (congestive) heart failure (8) CKD (chronic kidney disease) Code(s): N18.9 - CHRONIC KIDNEY DISEASE, UNSPECIFIED (9) Chest pain Code(s): R07.9 - CHEST PAIN, UNSPECIFIED Qualifiers: Chest pain type: chest pain due to myocardial ischemia (10) Cirrhosis of liver not due to alcohol Code(s): K74.60 - UNSPECIFIED CIRRHOSIS OF LIVER (11) Colon adenomas Code(s): D12.6 - BENIGN NEOPLASM OF COLON, UNSPECIFIED (12) Coumadin toxicity Code(s): T45.511A - POISONING BY ANTICOAGULANTS, ACCIDENTAL, INIT Qualifiers: Encounter type: initial encounter Injury intent: accidental or unintentional Qualified Code(s): T45.511A - Poisoning by anticoagulants, accidental (unintentional), initial encounter (13) Dehydration Code(s): E86.0 - DEHYDRATION (14) Diabetes Code(s): E11.9 - TYPE 2 DIABETES MELLITUS WITHOUT COMPLICATIONS Qualifiers: Diabetes mellitus type: type 2 Diabetes mellitus exterminator termite insulin use: without exterminator termite use (15) Diverticulosis Code(s): K57.90 - DVRTCLOS OF INTEST, PART UNSP, W/O PERF OR ABSCESS W/O BLEED (16) Heart failure Code(s): I50.9 - HEART FAILURE, UNSPECIFIED (17) Hx of CABG Code(s): Z95.1 - PRESENCE OF AORTOCORONARY BYPASS GRAFT (18) Hyperlipidemia Code(s): E78.5 - HYPERLIPIDEMIA, UNSPECIFIED Qualifiers: Hyperlipidemia type: pure hypercholesterolemia Qualified Code(s): E78.00 - Pure hypercholesterolemia, unspecified; E78.0 - Pure hypercholesterolemia (19) Hypertension Code(s): I10 - ESSENTIAL (PRIMARY) HYPERTENSION Qualifiers: Hypertension type: essential hypertension Qualified Code(s): I10 - Essential (primary) hypertension (20) Hypotension Code(s): I95.9 - HYPOTENSION, UNSPECIFIED Qualifiers: Hypotension type: orthostatic hypotension Qualified Code(s): I95.1 - Orthostatic hypotension (21) Irregularly irregular cardiac rhythm Code(s): I49.9 - CARDIAC ARRHYTHMIA, UNSPECIFIED (22) Mesenteric mass Code(s): K63.89 - OTHER SPECIFIED DISEASES OF INTESTINE (23) New onset atrial fibrillation Code(s): I48.91 - UNSPECIFIED ATRIAL FIBRILLATION (24) Paroxysmal atrial fibrillation with rapid ventricular response Code(s): I48.0 - PAROXYSMAL ATRIAL FIBRILLATION (25) Pleural effusion Code(s): J90 - PLEURAL EFFUSION, NOT ELSEWHERE CLASSIFIED (26) Portal hypertensive gastropathy Code(s): K76.6 - PORTAL HYPERTENSION; K31.89 - OTHER DISEASES OF STOMACH AND DUODENUM (27) Renal calculus, left Code(s): N20.0 - CALCULUS OF KIDNEY (28) Renal calculus, left Code(s): N20.0 - CALCULUS OF KIDNEY (29) Shortness of breath Code(s): R06.02 - SHORTNESS OF BREATH (30) Subtherapeutic international normalized ratio (INR) Code(s): R79.1 - ABNORMAL COAGULATION PROFILE (31) Syncope, near Code(s): R55 - SYNCOPE AND COLLAPSE (32) Urinary retention Code(s): R33.9 - RETENTION OF URINE, UNSPECIFIED (33) Urinary retention Code(s): R33.9 - RETENTION OF URINE, UNSPECIFIED (34) Weight loss Code(s): R63.4 - ABNORMAL WEIGHT LOSS Assessment/Plan 08/15/19 Echo: Normal LV size and fxn, mod cLVH LVEF 55%, mild dilated RV with mod decreased RV fxn, mild JUSTINO, mild MR, TR, 08/16/[address]: Large right>left efussion with compressive ATX 1. Chest pain with underlying CAD s/p PCI, CABG, elevated troponin referable to demand subendocardial ischemia 2. Persistent AF with variable ventricular response, [id number] score of 7 on DOAC 3. T2DM 4. Acute on chronic LV diastolic failure with R>L pleural effusion 5. HTN 6. Hypercholesterolemia 7. COPD 8. RESTREPO with cirrhosis 9. Chronic anemia with history of diverticular disease and gastritis 10. CKD 11. Abnormal TSH 12. Mild aortic stenosis 13. Klebsiella UTI PLAN: 1. IV diuresis with monitor diuretic response, renal fxn and electrolytes 2. Continue Metoprolol Tartrate 75 mg TID as tolerated 3. Continue Amiodarone 200 mg QD as tolerated. Continue Ranexa 1000 mg BID 4. Continue Xarelto 15 mg QD. Troponin peaked and downtrending 5. ASA 81 mg QD 6. Atorvastatin 40 mg QHS 7. Empiric abx course per ID recs 8. Can defer thoracentesis at this time as pt asymptomatic from effusion Coverage for dr. Brannon
[2019-08-19] MEDS: FUROSEMIDE 40 MG/4 ML INJECTABLE VIAL IVPUSH SCH (09:22)
[2019-08-19] MEDS: AMIODARONE HCL 200 MG TABLET PO SCH (09:24)
[2019-08-19] MEDS: FAMOTIDINE 20 MG TABLET PO SCH (09:24)
[2019-08-19] MEDS: ASPIRIN 81 MG CHEWABLE TABLETS PO SCH (09:24)
[2019-08-19] MEDS: DOCUSATE SODIUM 100 MG CAPSULE (FP) PO SCH ×2 (09:24→21:35)
[2019-08-19] MEDS: FERROUS SO4 325 MG TABLET (FP) PO SCH (09:24)
[2019-08-19] MEDS: RANOLAZINE E.R. 500 MG TABLET (FP) PO SCH ×2 (09:25→21:36)
[2019-08-19] MEDS: ERTAPENEM SODIUM 1 GM in SODIUM CHLORIDE 50 ML IVPB SCH (09:26)
[2019-08-19] MEDS: SILVER SULFADIAZINE 1% TOP CREAM 50 GM JAR TP SCH (09:26)
[2019-08-19] MEDS: BUDESONIDE/FORMETEROL FUMARATE 160/4.5 mcg INHALER IH SCH ×2 (09:38→21:38)
--- NOTE | 2019-08-19 11:27 | PN ---
Progress Note, Physician History of Present Illness: stable no new issues - Current Medication List Current Medications: Active Medications Acetaminophen (Tylenol -) 650 mg PO DAILY PRN PRN Reason: PAIN Last Admin: 08/18/19 06:26 Dose: 650 mg Albuterol/Ipratropium (Duoneb -) 1 amp NEB Q4H PRN PRN Reason: SHORT OF BREATH/WHEEZING Amiodarone HCl (Cordarone -) 200 mg PO DAILY [facility] Last Admin: 08/19/19 09:24 Dose: 200 mg Aspirin (Asa -) 81 mg PO DAILY [facility] Last Admin: 08/19/19 09:24 Dose: 81 mg Atorvastatin Calcium (Lipitor -) 40 mg PO HS [facility] Last Admin: 08/18/19 22:11 Dose: 40 mg Budesonide/Formoterol Fumarate (Symbicort 160/4.5mcg -) 2 puff IH BID [facility] Last Admin: 08/19/19 09:38 Dose: 2 puff Docusate Sodium (Colace -) 100 mg PO BID [facility] Last Admin: 08/19/19 09:24 Dose: 100 mg Famotidine (Pepcid -) 20 mg PO DAILY [facility] Last Admin: 08/19/19 09:24 Dose: 20 mg Ferrous Sulfate (Feosol -) 325 mg PO DAILY [facility] Last Admin: 08/19/19 09:24 Dose: 325 mg Furosemide (Lasix Injection -) 40 mg IVPUSH DAILY [facility] Last Admin: 08/19/19 09:22 Dose: 40 mg Ertapenem 1 gm/ Sodium (Chloride) 50 mls @ 100 mls/hr IVPB DAILY [facility] Last Admin: 08/19/19 09:26 Dose: 100 mls/hr Insulin Aspart (Novolog Vial Sliding Scale -) 1 vial SQ ACHS [facility]; Protocol Last Admin: 08/19/19 11:25 Dose: Not Given Levothyroxine Sodium (Synthroid -) 25 mcg PO DAILY@0700 [facility] Last Admin: 08/19/19 06:44 Dose: 25 mcg Metoprolol Tartrate (Lopressor -) 75 mg PO TID [facility] Last Admin: 08/19/19 06:44 Dose: 75 mg Ranolazine (Ranexa -) 1,000 mg PO BID [facility] Last Admin: 08/19/19 09:25 Dose: 1,000 mg Rivaroxaban (Xarelto) 15 mg PO DAILY@1800 [facility] Last Admin: 08/18/19 17:32 Dose: 15 mg Silver Sulfadiazine (Silvadene -) 1 applic TP DAILY [facility] Last Admin: 08/19/19 09:26 Dose: Not Given - Objective Vital Signs: Vital Signs Temperature 97.5 F L 08/19/19 10:00 Pulse Rate 91 H 08/19/19 10:00 Respiratory Rate 18 08/19/19 10:00 Blood Pressure 109/64 08/19/19 10:00 O2 Sat by Pulse Oximetry (%) 98 08/18/19 20:36 Constitutional: Yes: No Distress, Calm Cardiovascular: Yes: S1, S2 Respiratory: Yes: Regular, On Nasal O2, Poor Air Entry Gastrointestinal: Yes: Normal Bowel Sounds, Soft Musculoskeletal: Yes: WNL Extremities: Yes: WNL Neurological: Yes: Alert, Oriented Psychiatric: Yes: Alert, Oriented Labs: CBC, BMP 08/16/19 06:24 08/18/19 06:00 INR, PTT INR 0.96 (0.83-1.09) 08/14/19 23:00 Assessment/Plan Chest Pain +Troponins Acute on Chronic Diastolic Heart Failure Pleural Effusion likely from above Atrial Fibrillation Aortic Stenosis COPD Liver Cirrhosis HTN CKD Hypercholesterolemia uti plan continue abx resp support
--- NOTE | 2019-08-19 11:56 | PN ---
Progress Note (short form) - Note Progress Note: PULMONARY Dyspnea is improving. No CP. No acute events overnight. VSS/AFEBRILE Gen: NAD at rest Heart: RRR Lung: decreased breath sounds at the bases Abd: soft, nontender Ext: no edema A/P Chest Pain +Troponins likely Demand Ischemia Acute on Chronic Diastolic Heart Failure Pleural Effusion likely from above Atrial Fibrillation Aortic Stenosis COPD Liver Cirrhosis HTN CKD Hypercholesterolemia - continue anticoagulation - rate controlled - pleural fluid studies in the past have been mixed with elevated protein but low LDH - would monitor effusion with diuresis - defer thoracentesis Roni EDUARDO MD
[2019-08-19] MEDS: TRIMETHOBENZAMIDE HCL 200MG/2ML INJ IM PRN (12:23)
--- NOTE | 2019-08-19 15:06 | PN ---
Physical Exam: SUBJECTIVE: Patient seen and examined. She complained of nausea earlier, better now after Tigan. OBJECTIVE: Vital Signs Period Temp Pulse Resp BP Sys/Cortes Pulse Ox Last 24 Hr 97.1 F-98.3 F 75-99 18-19 98-128/54-76 97-98 GENERAL: The patient is awake, alert, and fully oriented, in no acute distress. LUNGS: Breath sounds equal, clear to auscultation bilaterally, decreased BS at bases, no wheezes, no crackles, no accessory muscle use. HEART: Irregularly irregular. ABDOMEN: Soft, nontender, nondistended, normoactive bowel sounds, no guarding, no rebound, no hepatosplenomegaly, no masses. EXTREMITIES: 2+ pulses, warm, well-perfused, no edema. Laboratory Results - last 24 hr 08/18/19 08/18/19 08/19/19 18:24 21:12 05:44 POC Glucometer 224 124 135 08/19/19 11:23 POC Glucometer 131 Active Medications Generic Name Dose Route Start Last Admin Trade Name Freq PRN Reason Stop Dose Admin Acetaminophen 650 mg 08/17/19 13:30 08/18/19 06:26 Tylenol - PO 650 mg DAILY PRN Administration PAIN Albuterol/Ipratropium 1 amp 08/15/19 04:38 Duoneb - NEB Q4H PRN SHORT OF BREATH/WHEEZING Amiodarone HCl 200 mg 08/15/19 10:00 08/19/19 09:24 Cordarone - PO 200 mg DAILY JENNY Administration Aspirin 81 mg 08/16/19 10:00 08/19/19 09:24 Asa - PO 81 mg DAILY JENNY Administration Atorvastatin Calcium 40 mg 08/15/19 22:00 08/18/19 22:11 Lipitor - PO 40 mg HS JENNY Administration Budesonide/Formoterol Fumarate 2 puff 08/16/19 22:00 08/19/19 09:38 Symbicort 160/4.5mcg - IH 2 puff BID JENNY Administration Docusate Sodium 100 mg 08/15/19 10:00 08/19/19 09:24 Colace - PO 100 mg BID JENNY Administration Famotidine 20 mg 08/15/19 10:00 08/19/19 09:24 Pepcid - PO 20 mg DAILY JENNY Administration Ferrous Sulfate 325 mg 08/15/19 10:00 08/19/19 09:24 Feosol - PO 325 mg DAILY JENNY Administration Furosemide 40 mg 08/15/19 18:00 08/19/19 09:22 Lasix Injection - IVPUSH 40 mg DAILY [facility] Administration Ertapenem 1 gm/ Sodium 50 mls @ 100 mls/hr 08/18/19 12:00 08/19/19 09:26 Chloride IVPB 100 mls/hr DAILY JENNY Administration Insulin Aspart 1 vial 08/15/19 07:00 08/19/19 11:25 Novolog Vial Sliding Scale - SQ Not Given ACHS [facility] Protocol Levothyroxine Sodium 25 mcg 08/17/19 07:00 08/19/19 06:44 Synthroid - PO 25 mcg DAILY@0700 [facility] Administration Metoprolol Tartrate 75 mg 08/16/19 08:45 08/19/19 06:44 Lopressor - PO 75 mg TID JENNY Administration Ranolazine 1,000 mg 08/17/19 10:00 08/19/19 09:25 Ranexa - PO 1,000 mg BID JENNY Administration Rivaroxaban 15 mg 08/15/19 18:00 08/18/19 17:32 Xarelto PO 15 mg DAILY@1800 [facility] Administration Silver Sulfadiazine 1 applic 08/15/19 10:00 08/19/19 09:26 Silvadene - TP Not Given DAILY [facility] Trimethobenzamide HCl 200 mg 08/19/19 12:17 08/19/19 12:23 Tigan Injection - IM 200 mg Q8H PRN Administration NAUSEA ASSESSMENT/PLAN: This is an 84 year old woman with a history of CAD, PCI, CABG, chronic diastolic heart failure, HTN, type 2 DM, hyperlipdemia, COPD, right pleural effusion, diverticulosis, gastritis, RESTREPO with cirrhosis, anxiety who presented to the ED with chest discomfort. 1. ESBL Klebsiella UTI - Ertapenem started yesterday 2. Demand ischemia 3. Acute on chronic diastolic heart failure - Continue Lasix IV - Weight down 7.7 kg in 3 days - Continue to monitor I&O, weight 4. CAD, history of PCI and CABG - Continue aspirin, Lopressor, Lipitor, Ranexa 5. HTN - Continue Lopressor, lasix 6. Hyperlipidemia - Continue Lipitor 7. Type 2 DM - Continue Novolog sliding scale 8. Atrial fib, permanent - Rate controlled - Continue amiodarone, Lopressor, Xarelto 9. RESTREPO with cirrhosis 10. COPD - Stable - Continue Symbicort 11. Hypothyroidism - Continue Synthroid 12. Anemia - Continue ferrous sulfate 13. Hyponatremia, hypokalemia - Monitor electrolytes Visit type - Emergency Visit Emergency Visit: Yes ED Registration Date: 08/15/19 Care time: The patient presented to the Emergency Department on the above date and was hospitalized for further evaluation of their emergent condition. - New Patient This patient is new to me today: Yes Date on this admission: 08/19/19 - Critical Care Critical Care patient: No - Discharge Referral Referred to [facility] No
--- NOTE | 2019-08-19 15:08 | EKG ---
Test Reason : Blood Pressure : / mmHG Vent. Rate : 073 BPM Atrial Rate : 100 BPM P-R Int : 000 ms QRS Dur : 112 ms QT Int : 434 ms P-R-T Axes : 000 079 208 degrees QTc Int : 478 ms ATRIAL FIBRILLATION LOW VOLTAGE QRS PROLONGED QT ABNORMAL ECG WHEN COMPARED WITH ECG OF 16-AUG-2019 09:38, NO SIGNIFICANT CHANGE WAS FOUND Confirmed by ASHA GARAY MD ([id number]) on 08/19/2019 3:08:16 PM Referred By: Meggan HAYWOOD Confirmed By:ASHA GARAY MD
[2019-08-19] MEDS: RIVAROXABAN 15 MG TABLET PO SCH (17:30)
[2019-08-19 19:20] LABS: CALCIUM 9.7 mg/dL (8.5-10.1); CREATININE 0.9 mg/dL (0.55-1.3); POTASSIUM 3.9 mmol/L (3.5-5.1)
[2019-08-19] MEDS: ATORVASTATIN CA 40 MG TABLET (FP) PO SCH (21:36)
[2019-08-20] MEDS: INSULIN SLIDING SCALE (NOVOLOG) 1 VIAL SQ SCH ×4 (06:19→21:51)
[2019-08-20 06:39] LABS: HEMATOCRIT 32.9 % (32.4-45.2); HEMOGLOBIN 10.9 GM/dL (10.7-15.3); MCH 31.1 pg (25.7-33.7); MCHC 33.2 g/dl (32.0-36.0); MEAN CELL VOLUME 93.6 fl (80-96); MEAN PLT VOLUME 8.2 fl (7.5-11.1); PLATELET COUNT 347 K/MM3 (134-434); RBC 3.51 M/mm3 (3.60-5.2); RDW 17.4 % (11.6-15.6); WHITE BLOOD COUNT 5.9 K/mm3 (4.0-10.0)
[2019-08-20 06:56] LABS: BLOOD UREA NITROGEN 22.9 mg/dL (7-18); CALCIUM 9.5 mg/dL (8.5-10.1); CREATININE 0.9 mg/dL (0.55-1.3); MAGNESIUM 2.3 mg/dL (1.8-2.4); POTASSIUM 3.8 mmol/L (3.5-5.1)
[2019-08-20] MEDS: METOPROLOL TARTRATE 25 MG TABLET (FP) PO SCH ×3 (06:56→22:48)
[2019-08-20] MEDS: LEVOTHYROXINE NA 25 MCG TABLET (FP) PO SCH (06:56)
--- NOTE | 2019-08-20 07:30 | PN ---
Teaching Attending Note Name of Resident: Mateo Christy ATTENDING PHYSICIAN STATEMENT I saw and evaluated the patient. I reviewed the resident's note and discussed the case with the resident. I agree with the resident's findings and plan as documented. Seen and examined; please see resident note for further historical information. I personally verified all diamond historical information and exam findings. Personally interpreted all imaging and diagnostics and reviewed appropriate consults. I reviewed all labs and vital signs as per resident note and EMR as documented. I agree with the above assessment and plan unless supplemented by myself in the following. VS, labs, imaging reviewed NAD, AAO, resting comfortably in bed. RRR s1/2 no mgr Normal muscle tone, moves all 5 extremities with normal apparent strength Neck is supple, trachea midline, no karolyn LN Lungs CTAB with sym expansion NT ND +BS no karolyn organomegaly CN2-12 wnl; no FND NC AT EOMI PERRLA Normal mood, appropriate behavior, euthymic affect No skin breakdown or rashes noted No new microbiology data, sensitivities reviewed. Ertapenem continued Pulmonary, cardiology input reviewed. Appreciate subspecialty input ASSESSMENT AND PLAN: Problems include: -Acute cystitis, complicated, secondary to ESBL positive Klebsiella. We will complete the course of IV antibiotics as per infectious disease. -Acute respiratory failure 2/2 CHF exacerbation -R-pleural effusion (Tap in 02/2019 with mixed effusion with low LDH noted and high protein; monitoring with diuresis and no significant changes noted on CXR. Per pulm can defer repeat thoracentesis at this time as she is asymptomatic. Will discuss with their service) -UTI (FU Cultures; multiple nonobstructing stones with the largest being 8mm noted. On ceftriaxone.) -NSTEMI (Type II vs. Type I in the setting of hx CAD s/p CABG, PCI) (FU with CV. Echo noted above. Continue xarelto, ranexa 1000 BID, atorva 40mg Abnormal TSH (TSH 25 and FT4 is 0.66; Continue thyroid replacement and follow- up TSH outpatient per protocol. Can FU with PCP and OP endocrine) History of mild History of atrial fibrillation on Xarelto (CV2 score =7; continue xarelto, amiodarone, MT. 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
--- NOTE | 2019-08-20 07:31 | PN ---
Progress Note, Physician History of Present Illness: Patient is an 84 year old female well known to our service with underlying history of CAD s/p PCI, CABG (2003), AF currently on DOAC (Xarelto), HTN, hypercholesterolemia, history of pleural effusion s/p thoracentesis, diverticular disease, anemia, diastolic heart failure and COPD who presents with chest discomflrt and left arm pain. Since then it has resolved and currently she appears comfortable. Troponin was elevated to 0.59. She denies paroxysmal nocturnal dyspnea or orthopnea. She denies shortness of breath or palpitations. She denies fever or chills. She denies nausea, vomiting diarrhea or abdominal pain. She denies headache or lightheadedness. - Current Medication List Current Medications: Active Medications Acetaminophen (Tylenol -) 650 mg PO DAILY PRN PRN Reason: PAIN Last Admin: 08/18/19 06:26 Dose: 650 mg Amiodarone HCl (Cordarone -) 200 mg PO DAILY [facility] Last Admin: 08/19/19 09:24 Dose: 200 mg Aspirin (Asa -) 81 mg PO DAILY [facility] Last Admin: 08/19/19 09:24 Dose: 81 mg Atorvastatin Calcium (Lipitor -) 40 mg PO HS [facility] Last Admin: 08/19/19 21:36 Dose: 40 mg Budesonide/Formoterol Fumarate (Symbicort 160/4.5mcg -) 2 puff IH BID [facility] Last Admin: 08/19/19 21:38 Dose: 2 puff Docusate Sodium (Colace -) 100 mg PO BID [facility] Last Admin: 08/19/19 21:35 Dose: 100 mg Famotidine (Pepcid -) 20 mg PO DAILY [facility] Last Admin: 08/19/19 09:24 Dose: 20 mg Ferrous Sulfate (Feosol -) 325 mg PO DAILY [facility] Last Admin: 08/19/19 09:24 Dose: 325 mg Furosemide (Lasix Injection -) 40 mg IVPUSH DAILY [facility] Last Admin: 08/19/19 09:22 Dose: 40 mg Ertapenem 1 gm/ Sodium (Chloride) 50 mls @ 100 mls/hr IVPB DAILY [facility] Last Admin: 08/19/19 09:26 Dose: 100 mls/hr Insulin Aspart (Novolog Vial Sliding Scale -) 1 vial SQ [facility]; Protocol Last Admin: 08/20/19 06:19 Dose: Not Given Levothyroxine Sodium (Synthroid -) 25 mcg PO DAILY@0700 [facility] Last Admin: 08/20/19 06:56 Dose: 25 mcg Metoprolol Tartrate (Lopressor -) 75 mg PO TID [facility] Last Admin: 08/20/19 06:56 Dose: 75 mg Ranolazine (Ranexa -) 1,000 mg PO BID [facility] Last Admin: 08/19/19 21:36 Dose: 1,000 mg Rivaroxaban (Xarelto) 15 mg PO DAILY@1800 [facility] Last Admin: 08/19/19 17:30 Dose: 15 mg Silver Sulfadiazine (Silvadene -) 1 applic TP DAILY [facility] Last Admin: 08/19/19 09:26 Dose: Not Given Trimethobenzamide HCl (Tigan Injection -) 200 mg IM Q8H PRN PRN Reason: NAUSEA Last Admin: 08/19/19 12:23 Dose: 200 mg - Objective Vital Signs: Vital Signs Temperature 98.2 F 08/20/19 06:00 Pulse Rate 86 08/20/19 06:55 Respiratory Rate 16 08/20/19 06:55 Blood Pressure 104/58 L 08/20/19 06:55 O2 Sat by Pulse Oximetry (%) 97 08/19/19 09:00 Eyes: Yes: WNL, Conjunctiva Clear, EOM Intact HENT: Yes: WNL, Atraumatic, Normocephalic Neck: Yes: WNL, Supple, Trachea Midline Cardiovascular: Yes: WNL, Regular Rate and Rhythm Respiratory: Yes: WNL, Regular, CTA Bilaterally Gastrointestinal: Yes: WNL, Normal Bowel Sounds Genitourinary: Yes: WNL Musculoskeletal: Yes: WNL Extremities: Yes: WNL Edema: No Integumentary: Yes: WNL Neurological: Yes: WNL, Alert, Oriented ...Motor Strength: WNL Psychiatric: Yes: WNL Labs: CBC, BMP 08/20/19 06:05 08/20/19 06:05 INR, PTT INR 0.96 (0.83-1.09) 08/14/19 23:00 Problem List - Problems (1) ACS (acute coronary syndrome) Code(s): I24.9 - ACUTE ISCHEMIC HEART DISEASE, UNSPECIFIED (2) Chronic atrial fibrillation Code(s): I48.2 - CHRONIC ATRIAL FIBRILLATION * DO NOT USE * (3) Abnormal TSH Code(s): R79.89 - OTHER SPECIFIED ABNORMAL FINDINGS OF BLOOD CHEMISTRY (4) [id number] kidney injury Code(s): N17.9 - ACUTE KIDNEY FAILURE, UNSPECIFIED; N18.9 - CHRONIC KIDNEY DISEASE, UNSPECIFIED Qualifiers: Chronic kidney disease stage: stage 2 (mild) (5) Anemia Code(s): D64.9 - ANEMIA, UNSPECIFIED Qualifiers: Anemia type: unspecified type Qualified Code(s): D64.9 - Anemia, unspecified (6) Anorexia Code(s): R63.0 - ANOREXIA (7) CHF (congestive heart failure) Code(s): I50.9 - HEART FAILURE, UNSPECIFIED Qualifiers: Heart failure type: diastolic Heart failure chronicity: acute on chronic Qualified Code(s): I50.33 - Acute on chronic diastolic (congestive) heart failure (8) CKD (chronic kidney disease) Code(s): N18.9 - CHRONIC KIDNEY DISEASE, UNSPECIFIED (9) Chest pain Code(s): R07.9 - CHEST PAIN, UNSPECIFIED Qualifiers: Chest pain type: chest pain due to myocardial ischemia (10) Cirrhosis of liver not due to alcohol Code(s): K74.60 - UNSPECIFIED CIRRHOSIS OF LIVER (11) Colon adenomas Code(s): D12.6 - BENIGN NEOPLASM OF COLON, UNSPECIFIED (12) Coumadin toxicity Code(s): T45.511A - POISONING BY ANTICOAGULANTS, ACCIDENTAL, INIT Qualifiers: Encounter type: initial encounter Injury intent: accidental or unintentional Qualified Code(s): T45.511A - Poisoning by anticoagulants, accidental (unintentional), initial encounter (13) Dehydration Code(s): E86.0 - DEHYDRATION (14) Diabetes Code(s): E11.9 - TYPE 2 DIABETES MELLITUS WITHOUT COMPLICATIONS Qualifiers: Diabetes mellitus type: type 2 Diabetes mellitus termite treater helper insulin use: without mcc use (15) Diverticulosis Code(s): K57.90 - DVRTCLOS OF INTEST, PART UNSP, W/O PERF OR ABSCESS W/O BLEED (16) Heart failure Code(s): I50.9 - HEART FAILURE, UNSPECIFIED (17) Hx of CABG Code(s): Z95.1 - PRESENCE OF AORTOCORONARY BYPASS GRAFT (18) Hyperlipidemia Code(s): E78.5 - HYPERLIPIDEMIA, UNSPECIFIED Qualifiers: Hyperlipidemia type: pure hypercholesterolemia Qualified Code(s): E78.00 - Pure hypercholesterolemia, unspecified; E78.0 - Pure hypercholesterolemia (19) Hypertension Code(s): I10 - ESSENTIAL (PRIMARY) HYPERTENSION Qualifiers: Hypertension type: essential hypertension Qualified Code(s): I10 - Essential (primary) hypertension (20) Hypotension Code(s): I95.9 - HYPOTENSION, UNSPECIFIED Qualifiers: Hypotension type: orthostatic hypotension Qualified Code(s): I95.1 - Orthostatic hypotension (21) Irregularly irregular cardiac rhythm Code(s): I49.9 - CARDIAC ARRHYTHMIA, UNSPECIFIED (22) Mesenteric mass Code(s): K63.89 - OTHER SPECIFIED DISEASES OF INTESTINE (23) New onset atrial fibrillation Code(s): I48.91 - UNSPECIFIED ATRIAL FIBRILLATION (24) Paroxysmal atrial fibrillation with rapid ventricular response Code(s): I48.0 - PAROXYSMAL ATRIAL FIBRILLATION (25) Pleural effusion Code(s): J90 - PLEURAL EFFUSION, NOT ELSEWHERE CLASSIFIED (26) Portal hypertensive gastropathy Code(s): K76.6 - PORTAL HYPERTENSION; K31.89 - OTHER DISEASES OF STOMACH AND DUODENUM (27) Renal calculus, left Code(s): N20.0 - CALCULUS OF KIDNEY (28) Renal calculus, left Code(s): N20.0 - CALCULUS OF KIDNEY (29) Shortness of breath Code(s): R06.02 - SHORTNESS OF BREATH (30) Subtherapeutic international normalized ratio (INR) Code(s): R79.1 - ABNORMAL COAGULATION PROFILE (31) Syncope, near Code(s): R55 - SYNCOPE AND COLLAPSE (32) Urinary retention Code(s): R33.9 - RETENTION OF URINE, UNSPECIFIED (33) Urinary retention Code(s): R33.9 - RETENTION OF URINE, UNSPECIFIED (34) Weight loss Code(s): R63.4 - ABNORMAL WEIGHT LOSS Assessment/Plan 08/15/19 Echo: Normal LV size and fxn, mod cLVH LVEF 55%, mild dilated RV with mod decreased RV fxn, mild JUSTINO, mild MR, TR, 08/16/[address]: Large right>left efussion with compressive ATX 1. Chest pain with underlying CAD s/p PCI, CABG, elevated troponin referable to demand subendocardial ischemia 2. Persistent AF with variable ventricular response, [id number] score of 7 on DOAC 3. T2DM 4. Acute on chronic LV diastolic failure with R>L pleural effusion 5. HTN 6. Hypercholesterolemia 7. COPD 8. RESTREPO with cirrhosis 9. Chronic anemia with history of diverticular disease and gastritis 10. CKD 11. Abnormal TSH 12. Mild aortic stenosis 13. Klebsiella UTI PLAN: 1. IV diuresis with monitor diuretic response, renal fxn and electrolytes 2. Continue Metoprolol Tartrate 75 mg TID as tolerated 3. Continue Amiodarone 200 mg QD as tolerated. Continue Ranexa 1000 mg BID 4. Continue Xarelto 15 mg QD. Troponin peaked and downtrending 5. ASA 81 mg QD 6. Atorvastatin 40 mg QHS 7. Empiric abx course per ID recs 8. Can defer thoracentesis at this time as pt asymptomatic from effusion Coverage for dr. Brannon
[2019-08-20] MEDS: TRIMETHOBENZAMIDE HCL 200MG/2ML INJ IM PRN (08:25)
--- NOTE | 2019-08-20 09:18 | PN ---
Physical Exam: SUBJECTIVE: Patient seen and examined at the bedside. Continues to endorse feelings weak and has nausea and poor appetite. Denies cp, sob, abd pain, vomiting, constipation, diarrhea, headaches, dizziness, lightheadedness, fevers , chills, numbness, tingling. OBJECTIVE: Vital Signs Period Temp Pulse Resp BP Sys/Cortes Pulse Ox Last 24 Hr 97.4 F-98.3 F 80-104 16-18 96-115/39-76 98 GENERAL: The patient is awake, alert, and fully oriented, in no acute distress. HEAD: Normal with no signs of trauma. EYES: PERRL, extraocular movements intact, sclera anicteric, conjunctiva clear. ENT: Oropharynx clear without exudates, moist mucous membranes. NECK: Trachea midline, full range of motion, supple. LUNGS: Decreased breath sounds at the bases bilaterally. No auscultated wheezes , crackles. No accessory muscle use. HEART: Regular rate and rhythm, S1, S2 with noted systolic ejection murmur. ABDOMEN: Soft, nontender, nondistended, normoactive bowel sounds, no guarding, no rebound, no masses. EXTREMITIES: 2+ pulses, warm, well-perfused, no edema. NEUROLOGICAL: Cranial nerves II through XII grossly intact. 4/5 muscle strength bilaterally upper and lower extremities. PSYCH: Normal mood, normal affect. SKIN: Warm, dry, normal turgor, no rashes or lesions noted Laboratory Results - last 24 hr 08/19/19 08/19/19 08/19/19 11:23 16:40 18:32 WBC RBC Hgb Hct MCV MCH MCHC RDW Plt Count MPV Sodium 133 L Potassium 3.9 Chloride 97 L Carbon Dioxide 30 Anion Gap 7 L BUN 22.0 H Creatinine 0.9 Est GFR (CKD-EPI)AfAm 67.10 Est GFR (CKD-EPI)NonAf 57.90 POC Glucometer 131 111 Random Glucose 125 H Calcium 9.7 Magnesium 08/19/19 08/20/19 08/20/19 21:34 05:44 06:05 WBC 5.9 RBC 3.51 L Hgb 10.9 Hct 32.9 MCV 93.6 MCH 31.1 MCHC 33.2 RDW 17.4 H Plt Count 347 MPV 8.2 Sodium Potassium Chloride Carbon Dioxide Anion Gap BUN Creatinine Est GFR (CKD-EPI)AfAm Est GFR (CKD-EPI)NonAf POC Glucometer 117 104 Random Glucose Calcium Magnesium 08/20/19 06:05 WBC RBC Hgb Hct MCV MCH MCHC RDW Plt Count MPV Sodium 135 L Potassium 3.8 Chloride 98 Carbon Dioxide 29 Anion Gap 8 BUN 22.9 H Creatinine 0.9 Est GFR (CKD-EPI)AfAm 67.10 Est GFR (CKD-EPI)NonAf 57.90 POC Glucometer Random Glucose 104 Calcium 9.5 Magnesium 2.3 Active Medications Generic Name Dose Route Start Last Admin Trade Name Freq PRN Reason Stop Dose Admin Acetaminophen 650 mg 08/17/19 13:30 08/18/19 06:26 Tylenol - PO 650 mg DAILY PRN Administration PAIN Amiodarone HCl 200 mg 08/15/19 10:00 08/19/19 09:24 Cordarone - PO 200 mg DAILY JENNY Administration Aspirin 81 mg 08/16/19 10:00 08/19/19 09:24 Asa - PO 81 mg DAILY JENNY Administration Atorvastatin Calcium 40 mg 08/15/19 22:00 08/19/19 21:36 Lipitor - PO 40 mg HS JENNY Administration Budesonide/Formoterol Fumarate 2 puff 08/16/19 22:00 08/19/19 21:38 Symbicort 160/4.5mcg - IH 2 puff BID JENNY Administration Docusate Sodium 100 mg 08/15/19 10:00 08/19/19 21:35 Colace - PO 100 mg BID JENNY Administration Famotidine 20 mg 08/15/19 10:00 08/19/19 09:24 Pepcid - PO 20 mg DAILY JENNY Administration Ferrous Sulfate 325 mg 08/15/19 10:00 08/19/19 09:24 Feosol - PO 325 mg DAILY JENNY Administration Furosemide 40 mg 08/15/19 18:00 08/19/19 09:22 Lasix Injection - IVPUSH 40 mg DAILY JENNY Administration Ertapenem 1 gm/ Sodium 50 mls @ 100 mls/hr 08/18/19 12:00 08/19/19 09:26 Chloride IVPB 100 mls/hr DAILY JENNY Administration Insulin Aspart 1 vial 08/15/19 07:00 08/20/19 06:19 Novolog Vial Sliding Scale - SQ Not Given ACHS [facility] Protocol Levothyroxine Sodium 25 mcg 08/17/19 07:00 08/20/19 06:56 Synthroid - PO 25 mcg DAILY@0700 JENNY Administration Metoprolol Tartrate 75 mg 08/16/19 08:45 08/20/19 06:56 Lopressor - PO 75 mg TID JENNY Administration Ranolazine 1,000 mg 08/17/19 10:00 08/19/19 21:36 Ranexa - PO 1,000 mg BID JENNY Administration Rivaroxaban 15 mg 08/15/19 18:00 08/19/19 17:30 Xarelto PO 15 mg DAILY@1800 JENNY Administration Silver Sulfadiazine 1 applic 08/15/19 10:00 08/19/19 09:26 Silvadene - TP Not Given DAILY [facility] Trimethobenzamide HCl 200 mg 08/19/19 12:17 08/20/19 08:25 Tigan Injection - IM 200 mg Q8H PRN Administration NAUSEA ASSESSMENT/PLAN: Shantell Alexis is an 84 year old female with a past medical history of CAD(s/p PCI , CABG (2003)), HFpEF, HTN, DM, Hyperlipdemia, chronic right sided pleural effusions (s/p thoracocentesis), diverticulosis, gastritis, RESTREPO cirrhosis, and anxiety admitted to telemetry to r/o ACS and treatment of UTI. R Pleural effusion 2/2 HFpEF vs hepatic hydrothorax - hx of past thoracentesis (last in January 2019) - Continue Lasix 40mg IV - Follow CXR - CT chest showing large right and smaller left pleural effusions with extensive atelectasis of the lower lobes. There are chronic lung changes noted biaterally with no definite evidence of pneumonia or acute pathology. 5mm nodule that is stable since prior studies on 02/01/19. - Pulmonology consulted (Dr. Reid), appreciate recs - pleural fluid studies in the past have been mixed with elevated protein but low LDH - would monitor effusion with diuresis - can defer thoracentesis at this time as patient is asymptomatic from effusion - sputum growing yeast like organism, defer to ID if treatment required UTI - (+) UA, UA growing Klebsiella Oxytoca with multiple resistance - continue Ertapenem as per ID - Consulted ID (Dr. Barron), recs appreciated - Bladder/Renal U/S - couple of small non obstructing left renal stones with the largest measuring 8mm, both kidneys appear otherwise unremarkable Chest pain, R/O ACS - Trop trended to peak and downtrend. Cardiology aware - Reported Lexiscan 01/25: no ischemia, LVEF 48% - Cardiology consulted, Dr. Sage - ECHO - EF 55%, moderate asymmetric left ventricular hypertrophy, right ventricle mildly dilated, RVEF moderately reduced - ASA 81mg daily - Continue Xarelto 15mg daily - EKG in Afib, nonspecific changes, no ST elevations - repeat EKGs without ST elevations noted - Ranexa 1000mg BID Hypothyroid - TSH 20.3 -> 25 - Free T4 0.67 -> 0.66 - Started on Synthroid 25mg daily HTN - Toprol 75 TID - Lasix 40 daily DM - ISS, BGM - A1C AFib - Xarelto 15mg daily - Amiodarone 200mg - Toprol 75 TID Acute on chronic HFpEF; CAD s/p PCI, CABG - BNP >2000 on admission - Lasix 40 daily Gastritis - can start Ranitadine if needed COPD - c/w duonebs Q4h PRN, albuterol Q4h PRN HLD - Atorvastatin 40mg DVT Prophylaxis - on Xarelto FEN - no standing fluids, caution with fluids in setting of HF - continue to monitor electrolytes and replete as needed - sodium/diabetic diet Disposition - continue to monitor on telemetry - Patient need SNF on discharge Visit type - Emergency Visit Emergency Visit: Yes ED Registration Date: 08/15/19 Care time: The patient presented to the Emergency Department on the above date and was hospitalized for further evaluation of their emergent condition. - New Patient This patient is new to me today: Yes Date on this admission: 08/20/19 - Critical Care Critical Care patient: No
[2019-08-20] MEDS: ERTAPENEM SODIUM 1 GM in SODIUM CHLORIDE 50 ML IVPB SCH (09:58)
[2019-08-20] MEDS: FERROUS SO4 325 MG TABLET (FP) PO SCH (10:00)
[2019-08-20] MEDS: AMIODARONE HCL 200 MG TABLET PO SCH (10:00)
[2019-08-20] MEDS: FUROSEMIDE 40 MG/4 ML INJECTABLE VIAL IVPUSH SCH (10:00)
[2019-08-20] MEDS: FAMOTIDINE 20 MG TABLET PO SCH (10:01)
[2019-08-20] MEDS: RANOLAZINE E.R. 500 MG TABLET (FP) PO SCH ×2 (10:01→21:51)
[2019-08-20] MEDS: ASPIRIN 81 MG CHEWABLE TABLETS PO SCH (10:01)
[2019-08-20] MEDS: DOCUSATE SODIUM 100 MG CAPSULE (FP) PO SCH ×2 (10:01→21:50)
[2019-08-20] MEDS: SILVER SULFADIAZINE 1% TOP CREAM 50 GM JAR TP SCH (10:02)
[2019-08-20] MEDS: BUDESONIDE/FORMETEROL FUMARATE 160/4.5 mcg INHALER IH SCH ×2 (10:05→21:51)
--- NOTE | 2019-08-20 11:05 | PN ---
Progress Note (short form) - Note Progress Note: PULMONARY Dyspnea is improving. No CP. No acute events overnight. SPO2 99% 2L/M NASAL VSS/AFEBRILE Gen: NAD at rest Heart: RRR Lung: decreased breath sounds at the bases Abd: soft, nontender Ext: no edema A/P Chest Pain +Troponins likely Demand Ischemia Acute on Chronic Diastolic Heart Failure Pleural Effusion likely from above Atrial Fibrillation Aortic Stenosis COPD Liver Cirrhosis HTN CKD Hypercholesterolemia - continue anticoagulation - rate controlled - would monitor effusion with diuresis - defer thoracentesis - oob to chair Roni EDUARDO MD
--- NOTE | 2019-08-20 13:41 | PN ---
Progress Note, Physician History of Present Illness: stable no new issues still nauseous - Current Medication List Current Medications: Active Medications Acetaminophen (Tylenol -) 650 mg PO DAILY PRN PRN Reason: PAIN Last Admin: 08/18/19 06:26 Dose: 650 mg Amiodarone HCl (Cordarone -) 200 mg PO DAILY [facility] Last Admin: 08/20/19 10:00 Dose: 200 mg Aspirin (Asa -) 81 mg PO DAILY [facility] Last Admin: 08/20/19 10:01 Dose: 81 mg Atorvastatin Calcium (Lipitor -) 40 mg PO HS [facility] Last Admin: 08/19/19 21:36 Dose: 40 mg Budesonide/Formoterol Fumarate (Symbicort 160/4.5mcg -) 2 puff IH BID [facility] Last Admin: 08/20/19 10:05 Dose: 2 puff Docusate Sodium (Colace -) 100 mg PO BID [facility] Last Admin: 08/20/19 10:01 Dose: 100 mg Famotidine (Pepcid -) 20 mg PO DAILY [facility] Last Admin: 08/20/19 10:01 Dose: 20 mg Ferrous Sulfate (Feosol -) 325 mg PO DAILY [facility] Last Admin: 08/20/19 10:00 Dose: 325 mg Furosemide (Lasix Injection -) 40 mg IVPUSH DAILY [facility] Last Admin: 08/20/19 10:00 Dose: 40 mg Ertapenem 1 gm/ Sodium (Chloride) 50 mls @ 100 mls/hr IVPB DAILY [facility] Last Admin: 08/20/19 09:58 Dose: 100 mls/hr Insulin Aspart (Novolog Vial Sliding Scale -) 1 vial SQ ACHS [facility]; Protocol Last Admin: 08/20/19 11:40 Dose: Not Given Levothyroxine Sodium (Synthroid -) 25 mcg PO DAILY@0700 [facility] Last Admin: 08/20/19 06:56 Dose: 25 mcg Metoprolol Tartrate (Lopressor -) 75 mg PO TID [facility] Last Admin: 08/20/19 06:56 Dose: 75 mg Ranolazine (Ranexa -) 1,000 mg PO BID [facility] Last Admin: 08/20/19 10:01 Dose: 1,000 mg Rivaroxaban (Xarelto) 15 mg PO DAILY@1800 [facility] Last Admin: 08/19/19 17:30 Dose: 15 mg Silver Sulfadiazine (Silvadene -) 1 applic TP DAILY [facility] Last Admin: 08/20/19 10:02 Dose: Not Given Trimethobenzamide HCl (Tigan Injection -) 200 mg IM Q8H PRN PRN Reason: NAUSEA Last Admin: 08/20/19 08:25 Dose: 200 mg - Objective Vital Signs: Vital Signs Temperature 98 F 08/20/19 08:31 Pulse Rate 104 H 08/20/19 08:31 Respiratory Rate 18 08/20/19 08:31 Blood Pressure 123/73 08/20/19 10:17 O2 Sat by Pulse Oximetry (%) 98 08/20/19 08:48 Constitutional: Yes: No Distress, Calm Cardiovascular: Yes: S1, S2 Respiratory: Yes: Regular, Poor Air Entry Gastrointestinal: Yes: Normal Bowel Sounds, Soft Musculoskeletal: Yes: WNL Extremities: Yes: WNL Neurological: Yes: Alert, Oriented Psychiatric: Yes: Alert, Oriented Labs: CBC, BMP 08/20/19 06:05 08/20/19 06:05 INR, PTT INR 0.96 (0.83-1.09) 08/14/19 23:00 Assessment/Plan Chest Pain +Troponins Acute on Chronic Diastolic Heart Failure Pleural Effusion likely from above Atrial Fibrillation Aortic Stenosis COPD Liver Cirrhosis HTN CKD Hypercholesterolemia uti plan continue abx resp support
[2019-08-20] MEDS: RIVAROXABAN 15 MG TABLET PO SCH (17:27)
[2019-08-20] MEDS: BENZOCAINE/MENTH/CETYLPYRD CL 1 EACH LOZENGE MM PRN (17:28)
[2019-08-20] MEDS: ATORVASTATIN CA 40 MG TABLET (FP) PO SCH (21:50)
[2019-08-21] MEDS: ACETAMINOPHEN 325 MG TABLET (FP) PO PRN (01:02)
[2019-08-21] MEDS: BENZOCAINE/MENTH/CETYLPYRD CL 1 EACH LOZENGE MM PRN (01:02)
[2019-08-21 06:13] LABS: BASO % 0.7 % (0-2.0); EOS % 2.2 % (0-4.5); HEMATOCRIT 32.9 % (32.4-45.2); HEMOGLOBIN 11.1 GM/dL (10.7-15.3); LYMPH % 7.3 % (8-40); MCH 31.7 pg (25.7-33.7); MCHC 33.7 g/dl (32.0-36.0); MEAN PLT VOLUME 8.2 fl (7.5-11.1); MONO % 5.2 % (3.8-10.2); NEUT % 84.6 % (42.8-82.8); PLATELET COUNT 370 K/MM3 (134-434); RDW 17.2 % (11.6-15.6)
[2019-08-21] MEDS: LEVOTHYROXINE NA 25 MCG TABLET (FP) PO SCH (06:19)
[2019-08-21 06:32] LABS: BLOOD UREA NITROGEN 25.6 mg/dL (7-18); CALCIUM 9.5 mg/dL (8.5-10.1); MAGNESIUM 2.2 mg/dL (1.8-2.4); POTASSIUM 3.9 mmol/L (3.5-5.1)
[2019-08-21] MEDS: METOPROLOL TARTRATE 25 MG TABLET (FP) PO SCH ×3 (06:56→21:18)
[2019-08-21] MEDS: INSULIN SLIDING SCALE (NOVOLOG) 1 VIAL SQ SCH ×4 (06:57→21:19)
--- NOTE | 2019-08-21 09:00 | PN ---
Progress Note, Physician History of Present Illness: No further chest pain, dyspnea improving with diuresis. - Current Medication List Current Medications: Active Medications Acetaminophen (Tylenol -) 650 mg PO DAILY PRN PRN Reason: PAIN Last Admin: 08/21/19 01:02 Dose: 650 mg Amiodarone HCl (Cordarone -) 200 mg PO DAILY [facility] Last Admin: 08/20/19 10:00 Dose: 200 mg Aspirin (Asa -) 81 mg PO DAILY [facility] Last Admin: 08/20/19 10:01 Dose: 81 mg Atorvastatin Calcium (Lipitor -) 40 mg PO HS [facility] Last Admin: 08/20/19 21:50 Dose: 40 mg Benzocaine/Menthol (Cepacol Lozenge -) 1 each MM Q2H PRN PRN Reason: SORE THROAT Last Admin: 08/21/19 01:02 Dose: 1 each Budesonide/Formoterol Fumarate (Symbicort 160/4.5mcg -) 2 puff IH BID [facility] Last Admin: 08/20/19 21:51 Dose: 2 puff Docusate Sodium (Colace -) 100 mg PO BID [facility] Last Admin: 08/20/19 21:50 Dose: 100 mg Famotidine (Pepcid -) 20 mg PO DAILY [facility] Last Admin: 08/20/19 10:01 Dose: 20 mg Ferrous Sulfate (Feosol -) 325 mg PO DAILY [facility] Last Admin: 08/20/19 10:00 Dose: 325 mg Furosemide (Lasix Injection -) 40 mg IVPUSH DAILY [facility] Last Admin: 08/20/19 10:00 Dose: 40 mg Ertapenem 1 gm/ Sodium (Chloride) 50 mls @ 100 mls/hr IVPB DAILY [facility] Last Admin: 08/20/19 09:58 Dose: 100 mls/hr Insulin Aspart (Novolog Vial Sliding Scale -) 1 vial SQ ACHS [facility]; Protocol Last Admin: 08/21/19 06:57 Dose: Not Given Levothyroxine Sodium (Synthroid -) 25 mcg PO DAILY@0700 [facility] Last Admin: 08/21/19 06:19 Dose: 25 mcg Metoprolol Tartrate (Lopressor -) 75 mg PO TID [facility] Last Admin: 08/21/19 06:56 Dose: Not Given Ranolazine (Ranexa -) 1,000 mg PO BID [facility] Last Admin: 08/20/19 21:51 Dose: 1,000 mg Rivaroxaban (Xarelto) 15 mg PO DAILY@1800 [facility] Last Admin: 08/20/19 17:27 Dose: 15 mg Silver Sulfadiazine (Silvadene -) 1 applic TP DAILY [facility] Last Admin: 08/20/19 10:02 Dose: Not Given Trimethobenzamide HCl (Tigan Injection -) 200 mg IM Q8H PRN PRN Reason: NAUSEA Last Admin: 08/20/19 08:25 Dose: 200 mg - Objective Vital Signs: Vital Signs Temperature 98.2 F 08/21/19 06:00 Pulse Rate 98 H 08/21/19 06:00 Respiratory Rate 18 08/21/19 06:00 Blood Pressure 97/57 L 08/21/19 06:00 O2 Sat by Pulse Oximetry (%) 96 08/20/19 21:00 Constitutional: Yes: No Distress, Calm, Thin Neck: Yes: Supple Cardiovascular: Yes: Regular Rate and Rhythm Respiratory: Yes: Regular, Diminished, On Nasal O2 Gastrointestinal: Yes: Normal Bowel Sounds, Soft Edema: No Labs: CBC, BMP 08/21/19 05:05 08/21/19 05:05 INR, PTT INR 0.96 (0.83-1.09) 08/14/19 23:00 - ....Imaging Chest X-ray: Report Reviewed (Right effusion with small right apical PTX) Cat Scan: Report Reviewed (Right effusion, no PTX) Problem List - Problems (1) Chronic atrial fibrillation Code(s): I48.2 - CHRONIC ATRIAL FIBRILLATION * DO NOT USE * (2) CHF (congestive heart failure) Code(s): I50.9 - HEART FAILURE, UNSPECIFIED Qualifiers: Heart failure type: diastolic Heart failure chronicity: acute on chronic Qualified Code(s): I50.33 - Acute on chronic diastolic (congestive) heart failure (3) CKD (chronic kidney disease) Code(s): N18.9 - CHRONIC KIDNEY DISEASE, UNSPECIFIED (4) Diabetes Code(s): E11.9 - TYPE 2 DIABETES MELLITUS WITHOUT COMPLICATIONS Qualifiers: Diabetes mellitus type: type 2 Diabetes mellitus shelter insulin use: without medical terminologist use (5) Hx of CABG Code(s): Z95.1 - PRESENCE OF AORTOCORONARY BYPASS GRAFT (6) Hyperlipidemia Code(s): E78.5 - HYPERLIPIDEMIA, UNSPECIFIED Qualifiers: Hyperlipidemia type: pure hypercholesterolemia Qualified Code(s): E78.00 - Pure hypercholesterolemia, unspecified; E78.0 - Pure hypercholesterolemia (7) Hypertension Code(s): I10 - ESSENTIAL (PRIMARY) HYPERTENSION Qualifiers: Hypertension type: essential hypertension Qualified Code(s): I10 - Essential (primary) hypertension (8) Pleural effusion Code(s): J90 - PLEURAL EFFUSION, NOT ELSEWHERE CLASSIFIED Assessment/Plan 08/15/19 Echo: Normal LV size and fxn, mod cLVH LVEF 55%, mild dilated RV with mod decreased RV fxn, mild JUSTINO, mild MR, TR, 08/16/[address]: Large right>left efussion with compressive ATX 1. Chest pain with underlying CAD s/p PCI, CABG, elevated troponin referable to demand subendocardial ischemia 2. Persistent AF with variable ventricular response, [id number] score of 7 on DOAC 3. T2DM 4. Acute on chronic LV diastolic failure with R>L pleural effusion 5. HTN 6. Hypercholesterolemia 7. COPD 8. RESTREPO with cirrhosis 9. Chronic anemia with history of diverticular disease and gastritis 10. CKD 11. Abnormal TSH 12. Mild aortic stenosis 13. Klebsiella UTI PLAN: 1. IV diuresis with monitor diuretic response, renal fxn and electrolytes 2. Continue Metoprolol Tartrate 75 mg TID as tolerated 3. Continue Amiodarone 200 mg QD as tolerated. Continue Ranexa 1000 mg BID 4. Continue Xarelto 15 mg QD. Troponin peaked and downtrending 5. ASA 81 mg QD 6. Atorvastatin 40 mg QHS 7. Empiric abx course per ID recs 8. Can defer thoracentesis at this time as pt asymptomatic from effusion
[2019-08-21] MEDS: FAMOTIDINE 20 MG TABLET PO SCH (09:37)
[2019-08-21] MEDS: ERTAPENEM SODIUM 1 GM in SODIUM CHLORIDE 50 ML IVPB SCH (09:37)
[2019-08-21] MEDS: FUROSEMIDE 40 MG/4 ML INJECTABLE VIAL IVPUSH SCH (09:37)
[2019-08-21] MEDS: RANOLAZINE E.R. 500 MG TABLET (FP) PO SCH ×2 (09:37→21:19)
[2019-08-21] MEDS: ASPIRIN 81 MG CHEWABLE TABLETS PO SCH (09:37)
[2019-08-21] MEDS: DOCUSATE SODIUM 100 MG CAPSULE (FP) PO SCH ×2 (09:37→21:18)
[2019-08-21] MEDS: AMIODARONE HCL 200 MG TABLET PO SCH (09:37)
[2019-08-21] MEDS: FERROUS SO4 325 MG TABLET (FP) PO SCH (09:37)
[2019-08-21] MEDS: BUDESONIDE/FORMETEROL FUMARATE 160/4.5 mcg INHALER IH SCH ×2 (09:38→21:18)
--- NOTE | 2019-08-21 09:45 | PN ---
Teaching Attending Note Name of Resident: María Casarez ATTENDING PHYSICIAN STATEMENT I saw and evaluated the patient. I reviewed the resident's note and discussed the case with the resident. I agree with the resident's findings and plan as documented. PTX incidentally noted on CXR this AM; no CVC attempts, etc. Stat CT chest was obtained which revealed there was no pneumothorax. 10 sys ROS done and negative aside from HPI VS, labs, imaging reviewed NAD, AAO, resting comfortably in bed. RRR s1/2 no mgr Normal muscle tone, moves all 5 extremities with normal apparent strength Neck is supple, trachea midline, no karolyn LN Lungs remain improved; virtually CTAB with sym expansion NT ND +BS no karolyn organomegaly CN2-12 wnl; no FND NC AT EOMI PERRLA Normal mood, appropriate behavior, euthymic affect No skin breakdown or rashes noted No new microbiology data, sensitivities reviewed. Ertapenem continued Pulmonary, cardiology input reviewed. Appreciate subspecialty input CT chest preliminary reviewed, no obvious pneumothorax. Following up final study. Reviewed chest x-ray. Microbiology 08/19/19 12:00 Sputum - Expectorated Gram Stain - Final 08/19/19 12:00 Sputum - Expectorated Sputum Culture - Final Yeast Like Organism 08/15/19 01:05 Urine - Urine Clean Catch Urine Culture - Final Klebsiella Oxytoca - Esbl ASSESSMENT AND PLAN: Pneumothorax likely not real, continues on ertapenem for ESBL UTI. Other cultures likely contaminants. Continuing on current medication Xarelto, Ranexa , atorvastatin, thyroid replacement with outpatient follow-up given the grossly elevated TSH on admission. She has no worsening respiratory symptoms and states that she feels well. Family will be updated but were not present this morning. Appreciate management from all indicated subspecialists. Problems include: -Acute cystitis, complicated, secondary to ESBL positive Klebsiella. We will complete the course of IV antibiotics as per infectious disease. -Acute respiratory failure 2/2 CHF exacerbation -R-pleural effusion (Tap in 02/2019 with mixed effusion with low LDH noted and high protein; monitoring with diuresis and no significant changes noted on CXR. Per pulm can defer repeat thoracentesis at this time as she is asymptomatic. Will discuss with their service) -UTI (FU Cultures; multiple nonobstructing stones with the largest being 8mm noted. On ceftriaxone.) -NSTEMI (Type II vs. Type I in the setting of hx CAD s/p CABG, PCI) (FU with CV. Echo noted above. Continue xarelto, ranexa 1000 BID, atorva 40mg Abnormal TSH (TSH 25 and FT4 is 0.66; Continue thyroid replacement and follow- up TSH outpatient per protocol. Can FU with PCP and OP endocrine) History of mild History of atrial fibrillation on Xarelto (CV2 score =7; continue xarelto, amiodarone, MT. 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
--- NOTE | 2019-08-21 11:56 | PN ---
Physical Exam: SUBJECTIVE: Patient seen and examined. States that her breathing feels slightly more labored than usual but is able to speak in full sentences. Denies chest pain, abd pain, SOB, fever, chills, nausea, vomiting. Sitting comfortably eating breakfast. OBJECTIVE: Vital Signs Period Temp Pulse Resp BP Sys/Cortes Pulse Ox Last 24 Hr 97.3 F-98.3 F 82-99 18-18 95-113/53-65 96-100 GENERAL: The patient is awake, alert, and fully oriented, in no acute distress. HEAD: Normal with no signs of trauma. EYES: EOMI, no ptosis, no scleral icterus ENT: MMM NECK: Trachea midline, supple LUNGS: Decreased breath sounds at the bases bilaterally. Good air entry auscultated at both apices. No accessory muscle use. HEART: Regular rate and rhythm, S1, S2, systolic ejection murmur noted ABDOMEN: Soft, nontender, nondistended, normoactive bowel sounds, no guarding, no rebound, no masses. EXTREMITIES: 2+ pulses, warm, well-perfused, no edema. NEUROLOGICAL: 4/5 muscle strength bilaterally upper and lower extremities. Normal speech PSYCH: Normal mood, normal affect. SKIN: Warm, dry, normal turgor, no rashes or lesions noted Laboratory Results - last 24 hr 08/20/19 08/20/19 08/20/19 11:39 17:26 21:49 WBC RBC Hgb Hct MCV MCH MCHC RDW Plt Count MPV Absolute Neuts (auto) Neutrophils % Lymphocytes % Monocytes % Eosinophils % Basophils % Nucleated RBC % Sodium Potassium Chloride Carbon Dioxide Anion Gap BUN Creatinine Est GFR (CKD-EPI)AfAm Est GFR (CKD-EPI)NonAf POC Glucometer 113 145 150 Random Glucose Calcium Magnesium 08/21/19 08/21/19 08/21/19 05:05 05:05 06:19 WBC 7.0 RBC 3.50 L Hgb 11.1 Hct 32.9 MCV 94.0 MCH 31.7 MCHC 33.7 RDW 17.2 H Plt Count 370 MPV 8.2 Absolute Neuts (auto) 5.9 Neutrophils % 84.6 H D Lymphocytes % 7.3 L D Monocytes % 5.2 Eosinophils % 2.2 Basophils % 0.7 Nucleated RBC % 0 Sodium 134 L Potassium 3.9 Chloride 96 L Carbon Dioxide 32 Anion Gap 6 L BUN 25.6 H Creatinine 1.0 Est GFR (CKD-EPI)AfAm 59.08 Est GFR (CKD-EPI)NonAf 50.97 POC Glucometer 123 Random Glucose 127 H Calcium 9.5 Magnesium 2.2 Active Medications Generic Name Dose Route Start Last Admin Trade Name Freq PRN Reason Stop Dose Admin Acetaminophen 650 mg 08/17/19 13:30 08/21/19 01:02 Tylenol - PO 650 mg DAILY PRN Administration PAIN Amiodarone HCl 200 mg 08/15/19 10:00 08/21/19 09:37 Cordarone - PO 200 mg DAILY [facility] Administration Aspirin 81 mg 08/16/19 10:00 08/21/19 09:37 Asa - PO 81 mg DAILY [facility] Administration Atorvastatin Calcium 40 mg 08/15/19 22:00 08/20/19 21:50 Lipitor - PO 40 mg HS [facility] Administration Benzocaine/Menthol 1 each 08/20/19 14:24 08/21/19 01:02 Cepacol Lozenge - MM 1 each Q2H PRN Administration SORE THROAT Budesonide/Formoterol Fumarate 2 puff 08/16/19 22:00 08/21/19 09:38 Symbicort 160/4.5mcg - IH 2 puff BID [facility] Administration Docusate Sodium 100 mg 08/15/19 10:00 08/21/19 09:37 Colace - PO 100 mg BID [facility] Administration Famotidine 20 mg 08/15/19 10:00 08/21/19 09:37 Pepcid - PO 20 mg DAILY [facility] Administration Ferrous Sulfate 325 mg 08/15/19 10:00 08/21/19 09:37 Feosol - PO 325 mg DAILY [facility] Administration Furosemide 40 mg 08/15/19 18:00 08/21/19 09:37 Lasix Injection - IVPUSH 40 mg DAILY [facility] Administration Ertapenem 1 gm/ Sodium 50 mls @ 100 mls/hr 08/18/19 12:00 08/21/19 09:37 Chloride IVPB 100 mls/hr DAILY [facility] Administration Insulin Aspart 1 vial 08/15/19 07:00 08/21/19 06:57 Novolog Vial Sliding Scale - SQ Not Given ACHS [facility] Protocol Levothyroxine Sodium 25 mcg 08/17/19 07:00 08/21/19 06:19 Synthroid - PO 25 mcg DAILY@0700 [facility] Administration Metoprolol Tartrate 75 mg 08/16/19 08:45 08/21/19 06:56 Lopressor - PO Not Given TID [facility] Ranolazine 1,000 mg 08/17/19 10:00 08/21/19 09:37 Ranexa - PO 1,000 mg BID [facility] Administration Rivaroxaban 15 mg 08/15/19 18:00 08/20/19 17:27 Xarelto PO 15 mg DAILY@1800 [facility] Administration Silver Sulfadiazine 1 applic 08/15/19 10:00 08/20/19 10:02 Silvadene - TP Not Given DAILY [facility] Trimethobenzamide HCl 200 mg 08/19/19 12:17 08/20/19 08:25 Tigan Injection - IM 200 mg Q8H PRN Administration NAUSEA ASSESSMENT/PLAN: Shantell Alexis is an 84 year old female with a past medical history of CAD(s/p PCI , CABG (2003)), HFpEF, HTN, DM, Hyperlipdemia, chronic right sided pleural effusions (s/p thoracocentesis), diverticulosis, gastritis, RESTREPO cirrhosis, and anxiety admitted to telemetry to r/o ACS and treatment of UTI. #R Pleural effusion 2/2 HFpEF vs hepatic hydrothorax - hx of past thoracentesis (last in January 2019) - Continue Lasix 40mg IV - CT chest showing large right and smaller left pleural effusions with extensive atelectasis of the lower lobes. There are chronic lung changes noted bilaterally with no definite evidence of pneumonia or acute pathology. 5mm nodule that is stable since prior studies on 02/01/19. - Pulmonology consulted (Dr. Reid), appreciate recs - sputum growing yeast like organism, treatment as per ID - CXR 08/21 showing possible pneumothorax -> followed up with CT - CT chest without evidence of pneumothorax, large right pleural effusion which appears mildly increased in size in comparison to CT exam of 08/16/2019, small to moderate pleural effusion. B/L lower lobe compressive atelectasis. - Discussed with Pulm - deferred thoracentesis at this time as patient is asymptomatic, can follow outpatient. Recommend patient weigh herself daily to monitor weight, can get CXR every few weeks to monitor effusion - pleural fluid studies in the past have been mixed with elevated protein but low LDH #UTI - (+) UA, UA growing Klebsiella Oxytoca with multiple resistance - continue Ertapenem as per ID, started on 08/17. Will need PICC line for total of 10 days treatment. - Consulted ID (Dr. Barron), recs appreciated - Bladder/Renal U/S - couple of small non obstructing left renal stones with the largest measuring 8mm, both kidneys appear otherwise unremarkable #Chest pain, R/O ACS - Trop trended to peak and downtrend. Cardiology aware - Reported Lexiscan 01/25: no ischemia, LVEF 48% - Cardiology consulted, Dr. Sage - ECHO - EF 55%, moderate asymmetric left ventricular hypertrophy, right ventricle mildly dilated, RVEF moderately reduced - ASA 81mg daily - EKG in Afib, nonspecific changes, no ST elevations - repeat EKGs without ST elevations noted - Ranexa increased to 1000mg BID #Hypothyroid - TSH 20.3 -> 25 - Free T4 0.67 -> 0.66 - Started on Synthroid 25mg daily #HTN - Toprol 75 TID - Lasix 40 daily #DM - ISS, BGM - A1C #AFib - Xarelto 15mg daily - Amiodarone 200mg - Toprol 75 TID #Acute on chronic HFpEF; CAD s/p PCI, CABG - BNP >2000 on admission - Lasix 40mg daily #Gastritis - can start Ranitadine if needed #COPD - c/w duonebs Q4h PRN, albuterol Q4h PRN #HLD - Atorvastatin 40mg #DVT Prophylaxis - on Xarelto #FEN - no standing fluids, caution with fluids in setting of HF - continue to monitor electrolytes and replete as needed - sodium/diabetic diet #Disposition - patient will need PICC line for a total of 10 days of Ertapenem, on day 5 now - patient refusing SNF placement, requesting [facility] Visit type - Emergency Visit Emergency Visit: Yes ED Registration Date: 08/15/19 Care time: The patient presented to the Emergency Department on the above date and was hospitalized for further evaluation of their emergent condition. - New Patient This patient is new to me today: No - Critical Care Critical Care patient: No ATTENDING PHYSICIAN STATEMENT I saw and evaluated the patient. I reviewed the resident's note and discussed the case with the resident. I agree with the resident's findings and plan as documented. SUBJECTIVE: OBJECTIVE: ASSESSMENT AND PLAN:
--- NOTE | 2019-08-21 13:28 | PN ---
Progress Note (short form) - Note Progress Note: PULMONARY Denies shortness of breath. Repeat CT chest done showing unchanged effusion. Vital Signs Period Temp Pulse Resp BP Sys/Cortes Pulse Ox Last 24 Hr 97.3 F-98.3 F 82-99 18-20 95-113/53-65 96-100 Gen: NAD at rest Heart: RRR Lung: decreased breath sounds at the bases Abd: soft, nontender Ext: no edema CBC, BMP 08/21/19 05:05 08/21/19 05:05 Active Medications Acetaminophen (Tylenol -) 650 mg PO DAILY PRN PRN Reason: PAIN Last Admin: 08/21/19 01:02 Dose: 650 mg Amiodarone HCl (Cordarone -) 200 mg PO DAILY [facility] Last Admin: 08/21/19 09:37 Dose: 200 mg Aspirin (Asa -) 81 mg PO DAILY [facility] Last Admin: 08/21/19 09:37 Dose: 81 mg Atorvastatin Calcium (Lipitor -) 40 mg PO HS [facility] Last Admin: 08/20/19 21:50 Dose: 40 mg Benzocaine/Menthol (Cepacol Lozenge -) 1 each MM Q2H PRN PRN Reason: SORE THROAT Last Admin: 08/21/19 01:02 Dose: 1 each Budesonide/Formoterol Fumarate (Symbicort 160/4.5mcg -) 2 puff IH BID [facility] Last Admin: 08/21/19 09:38 Dose: 2 puff Docusate Sodium (Colace -) 100 mg PO BID [facility] Last Admin: 08/21/19 09:37 Dose: 100 mg Famotidine (Pepcid -) 20 mg PO DAILY [facility] Last Admin: 08/21/19 09:37 Dose: 20 mg Ferrous Sulfate (Feosol -) 325 mg PO DAILY [facility] Last Admin: 08/21/19 09:37 Dose: 325 mg Furosemide (Lasix Injection -) 40 mg IVPUSH DAILY [facility] Last Admin: 08/21/19 09:37 Dose: 40 mg Furosemide (Lasix Injection -) 40 mg IVPUSH ONCE ONE Stop: 08/21/19 14:01 Ertapenem 1 gm/ Sodium (Chloride) 50 mls @ 100 mls/hr IVPB DAILY [facility] Last Admin: 08/21/19 09:37 Dose: 100 mls/hr Insulin Aspart (Novolog Vial Sliding Scale -) 1 vial SQ ACHS [facility]; Protocol Last Admin: 08/21/19 11:46 Dose: Not Given Levothyroxine Sodium (Synthroid -) 25 mcg PO DAILY@0700 [facility] Last Admin: 08/21/19 06:19 Dose: 25 mcg Metoprolol Tartrate (Lopressor -) 75 mg PO TID [facility] Last Admin: 08/21/19 06:56 Dose: Not Given Ranolazine (Ranexa -) 1,000 mg PO BID [facility] Last Admin: 08/21/19 09:37 Dose: 1,000 mg Rivaroxaban (Xarelto) 15 mg PO DAILY@1800 [facility] Last Admin: 08/20/19 17:27 Dose: 15 mg Silver Sulfadiazine (Silvadene -) 1 applic TP DAILY [facility] Last Admin: 08/20/19 10:02 Dose: Not Given Trimethobenzamide HCl (Tigan Injection -) 200 mg IM Q8H PRN PRN Reason: NAUSEA Last Admin: 08/20/19 08:25 Dose: 200 mg A/P Chest Pain +Troponins likely Demand Ischemia Acute on Chronic Diastolic Heart Failure Pleural Effusion likely from above Atrial Fibrillation Aortic Stenosis COPD Liver Cirrhosis HTN CKD Hypercholesterolemia - continue anticoagulation - rate controlled - continue lasix - monitor urine output, creatinine - can defer thoracentesis at this time as pt asymptomatic from effusion - offered thoracentesis but not urgent - can monitor as outpt once pt on oral diuresis
[2019-08-21] MEDS ORDERED: FUROSEMIDE 40 MG/4 ML INJECTABLE VIAL IVPUSH ONE (14:00)
--- NOTE | 2019-08-21 14:26 | PN ---
Progress Note, Physician History of Present Illness: stable no new issues - Current Medication List Current Medications: Active Medications Acetaminophen (Tylenol -) 650 mg PO DAILY PRN PRN Reason: PAIN Last Admin: 08/21/19 01:02 Dose: 650 mg Amiodarone HCl (Cordarone -) 200 mg PO DAILY [facility] Last Admin: 08/21/19 09:37 Dose: 200 mg Aspirin (Asa -) 81 mg PO DAILY [facility] Last Admin: 08/21/19 09:37 Dose: 81 mg Atorvastatin Calcium (Lipitor -) 40 mg PO HS [facility] Last Admin: 08/20/19 21:50 Dose: 40 mg Benzocaine/Menthol (Cepacol Lozenge -) 1 each MM Q2H PRN PRN Reason: SORE THROAT Last Admin: 08/21/19 01:02 Dose: 1 each Budesonide/Formoterol Fumarate (Symbicort 160/4.5mcg -) 2 puff IH BID [facility] Last Admin: 08/21/19 09:38 Dose: 2 puff Docusate Sodium (Colace -) 100 mg PO BID [facility] Last Admin: 08/21/19 09:37 Dose: 100 mg Famotidine (Pepcid -) 20 mg PO DAILY [facility] Last Admin: 08/21/19 09:37 Dose: 20 mg Ferrous Sulfate (Feosol -) 325 mg PO DAILY [facility] Last Admin: 08/21/19 09:37 Dose: 325 mg Furosemide (Lasix Injection -) 40 mg IVPUSH DAILY [facility] Last Admin: 08/21/19 09:37 Dose: 40 mg Ertapenem 1 gm/ Sodium (Chloride) 50 mls @ 100 mls/hr IVPB DAILY [facility] Last Admin: 08/21/19 09:37 Dose: 100 mls/hr Insulin Aspart (Novolog Vial Sliding Scale -) 1 vial SQ ACHS [facility]; Protocol Last Admin: 08/21/19 11:46 Dose: Not Given Levothyroxine Sodium (Synthroid -) 25 mcg PO DAILY@0700 [facility] Last Admin: 08/21/19 06:19 Dose: 25 mcg Metoprolol Tartrate (Lopressor -) 75 mg PO TID [facility] Last Admin: 08/21/19 13:54 Dose: 75 mg Ranolazine (Ranexa -) 1,000 mg PO BID [facility] Last Admin: 08/21/19 09:37 Dose: 1,000 mg Rivaroxaban (Xarelto) 15 mg PO DAILY@1800 [facility] Last Admin: 08/20/19 17:27 Dose: 15 mg Silver Sulfadiazine (Silvadene -) 1 applic TP DAILY [facility] Last Admin: 08/20/19 10:02 Dose: Not Given Trimethobenzamide HCl (Tigan Injection -) 200 mg IM Q8H PRN PRN Reason: NAUSEA Last Admin: 08/20/19 08:25 Dose: 200 mg - Objective Vital Signs: Vital Signs Temperature 97.4 F L 08/21/19 14:00 Pulse Rate 85 08/21/19 14:00 Respiratory Rate 08/21/19 14:00 Blood Pressure 94/62 08/21/19 14:00 O2 Sat by Pulse Oximetry (%) 100 08/21/19 10:00 Constitutional: Yes: No Distress, Calm Cardiovascular: Yes: S1, S2 Respiratory: Yes: Regular, CTA Bilaterally Gastrointestinal: Yes: Normal Bowel Sounds, Soft Musculoskeletal: Yes: WNL Extremities: Yes: WNL Neurological: Yes: Alert, Oriented Psychiatric: Yes: Alert, Oriented Labs: CBC, BMP 08/21/19 05:05 08/21/19 05:05 INR, PTT INR 0.96 (0.83-1.09) 08/14/19 23:00 Assessment/Plan Chest Pain +Troponins Acute on Chronic Diastolic Heart Failure Pleural Effusion likely from above Atrial Fibrillation Aortic Stenosis COPD Liver Cirrhosis HTN CKD Hypercholesterolemia uti plan continue abx resp support complete a 10 day course rest as per the team
[2019-08-21] MEDS ORDERED: PT OWN MED DRAWER 7, Y5N ONE ×2 (16:46→16:55)
[2019-08-21] MEDS: SILVER SULFADIAZINE 1% TOP CREAM 50 GM JAR TP SCH (16:47)
--- NOTE | 2019-08-21 16:47 | CONSULT ---
Consult Consult Specialty:: Thoracic Surgery Referred by:: Medicine Reason for Consultation:: Right chronic pleural effusion - History of Present Illness Chief Complaint: Chest pain History of Present Illness: 84F with MMP, former smoker (quit 40 y ago), cirrhosis, CHF, CAD s/p CABG, afib , p/w cp admit for cardiac w/u. Of note pleural effusion larger on right. Was tapped in Summer and was not malignant. - History Source History Provided By: Patient, Medical Record - Past Medical History Cardio/Vascular: Yes: AFIB, CAD, CHF, HTN, Hyperlipdemia Pulmonary: Yes: COPD, Other (Stable lung nodules) Gastrointestinal: Yes: Diverticulosis, Gastritis Hepatobiliary: Yes: Cirrhosis (RESTREPO related), Cholelithiasis, Other (Mevacor induced hepatitis in 1994) Psych: Yes: Anxiety Endocrine: Yes: Diabetes Mellitus Additional Medical History: Mesenteric mass of undetermined etiology since 2016 - Past Surgical History Past Surgical History: Yes: CABG, Hysterectomy - Alcohol/Substance Use Hx Alcohol Use: No History of Substance Use: reports: None - Smoking History Smoking history: Unknown if ever smoked Have you smoked in the past 12 months: No Aproximately how many cigarettes per day: 0 If you are a former smoker, when did you quit?: 1981 - Social History Usual Living Arrangement: Alone ADL: Independent 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 History of Recent Travel: No Home Medications - Allergies Allergies/Adverse Reactions: Allergies Allergy/AdvReac Type Severity Reaction Status Date / Time pollen extracts Allergy Unknown Verified 02/01/19 18:48 HONEYDEW Allergy Severe Difficulty Uncoded 02/01/19 18:48 Breathing HAYFEVER,GRASS,POLLEN Allergy Uncoded 02/01/19 18:48 - Home Medications Home Medications: Ambulatory Orders Folic Acid - 400 mcg PO ASDIR 02/16/12 Furosemide [Lasix -] 20 mg PO DAILY 03/18/16 Glucosamine/D3/Boswellia Eda [Osteo Bi-Flex Caplet] 1 tab PO BID 03/18/16 Iron,Carbonyl [Feosol] 65 mg PO DAILY 03/18/16 Mometasone Furoate [Asmanex] 220 mcg IH BID PRN 03/18/16 Cyanocobalamin (Vitamin B-12) [Vitamin B-12] 1,000 mcg PO DAILY 02/01/19 Vitamin E 1 tab PO DAILY 02/01/19 Amiodarone HCl [Cordarone -] 200 mg PO DAILY tablet 03/27/19 Docusate Sodium [Colace -] 100 mg PO BID capsule 03/27/19 Insulin Sliding Scale [Novolog Vial Sliding Scale -] 1 vial SQ ACHS units 03/27 Polyethylene Glycol 3350 [Miralax 119 gm Btl -] 17 gm PO BID bottle 03/27/19 Rivaroxaban [Xarelto] 15 mg PO DAILY@1800 tablet 03/27/19 Acetaminophen [Pain Relief] 650 mg PO PRN PRN 08/15/19 Albuterol 2.5/Ipratropium 0.5 [Duoneb -] 1 neb NEB Q4H PRN 08/15/19 Atorvastatin Calcium 40 mg PO DAILY 08/15/19 Famotidine [Pepcid -] 40 mg PO DAILY 08/15/19 Metoprolol Tartrate 50 mg PO DAILY 08/15/19 Ranitidine HCl [Acid Aircraft Navigator] 150 mg PO DAILY 08/15/19 Ranolazine [Ranexa -] 500 mg PO BID 08/15/19 Silver Sulfadiazine [Silvadene] 1,000 gm TP DAILY 08/15/19 Family Medical History Family History: Unremarkable Review of Systems - Review of Systems Constitutional: reports: Weakness Cardiovascular: denies: Chest Pain Respiratory: reports: SOB on Exertion. denies: SOB Gastrointestinal: reports: No Symptoms Physical Exam Vital Signs: Vital Signs Temperature 97.4 F L 08/21/19 14:00 Pulse Rate 85 08/21/19 14:00 Respiratory Rate 20 08/21/19 14:00 Blood Pressure 94/62 08/21/19 14:00 O2 Sat by Pulse Oximetry (%) 100 08/21/19 10:00 Constitutional: Yes: Calm Respiratory: Yes: Other (decreased breath sounds on right) Labs: CBC, BMP 08/21/19 05:05 08/21/19 05:05 Imaging - Results Cat Scan: Image Reviewed Problem List - Problems (1) ACS (acute coronary syndrome) Code(s): I24.9 - ACUTE ISCHEMIC HEART DISEASE, UNSPECIFIED (2) CHF (congestive heart failure) Code(s): I50.9 - HEART FAILURE, UNSPECIFIED Qualifiers: Heart failure type: diastolic Heart failure chronicity: acute on chronic Qualified Code(s): I50.33 - Acute on chronic diastolic (congestive) heart failure (3) CKD (chronic kidney disease) Code(s): N18.9 - CHRONIC KIDNEY DISEASE, UNSPECIFIED (4) Cirrhosis of liver not due to alcohol Code(s): K74.60 - UNSPECIFIED CIRRHOSIS OF LIVER (5) Hx of CABG Code(s): Z95.1 - PRESENCE OF AORTOCORONARY BYPASS GRAFT (6) Pleural effusion Code(s): J90 - PLEURAL EFFUSION, NOT ELSEWHERE CLASSIFIED (7) Weight loss Code(s): R63.4 - ABNORMAL WEIGHT LOSS Assessment/Plan 84F with cardenas, recent admission with chest pain and CHF, with increase in size of right pleural effusion. Was tapped in Summer and negative for malignancy. -Currently asymptomatic; -Agree with Dr. Reid, would only repeat thoracentesis if symptomatic. -Reconsult prn.
[2019-08-21] MEDS: RIVAROXABAN 15 MG TABLET PO SCH (18:22)
[2019-08-21] MEDS: ATORVASTATIN CA 40 MG TABLET (FP) PO SCH (21:18)
[2019-08-22] MEDS: METOPROLOL TARTRATE 25 MG TABLET (FP) PO SCH ×2 (05:17→15:28)
[2019-08-22] MEDS: LEVOTHYROXINE NA 25 MCG TABLET (FP) PO SCH (05:59)
[2019-08-22] MEDS: INSULIN SLIDING SCALE (NOVOLOG) 1 VIAL SQ SCH ×2 (05:59→14:22)
[2019-08-22 07:57] LABS: BLOOD UREA NITROGEN 26.1 mg/dL (7-18); CALCIUM 9.7 mg/dL (8.5-10.1); CREATININE 0.9 mg/dL (0.55-1.3); MAGNESIUM 2.2 mg/dL (1.8-2.4); POTASSIUM 3.8 mmol/L (3.5-5.1)
[2019-08-22] MEDS: ASPIRIN 81 MG CHEWABLE TABLETS PO SCH (09:33)
[2019-08-22] MEDS: FERROUS SO4 325 MG TABLET (FP) PO SCH (09:33)
[2019-08-22] MEDS: DOCUSATE SODIUM 100 MG CAPSULE (FP) PO SCH (09:33)
[2019-08-22] MEDS: FAMOTIDINE 20 MG TABLET PO SCH (09:33)
[2019-08-22] MEDS: AMIODARONE HCL 200 MG TABLET PO SCH (09:33)
[2019-08-22] MEDS: FUROSEMIDE 40 MG/4 ML INJECTABLE VIAL IVPUSH SCH (09:34)
[2019-08-22] MEDS: ERTAPENEM SODIUM 1 GM in SODIUM CHLORIDE 50 ML IVPB SCH (09:35)
--- NOTE | 2019-08-22 12:15 | PN ---
Progress Note, Physician Chief Complaint: Events noted Dyspnea improving History of Present Illness: Patient was seen and examined. Awake and alert. Chart was reviewed Denies chest pain or shortness of breath - Current Medication List Current Medications: Active Medications Acetaminophen (Tylenol -) 650 mg PO DAILY PRN PRN Reason: PAIN Last Admin: 08/21/19 01:02 Dose: 650 mg Amiodarone HCl (Cordarone -) 200 mg PO DAILY [facility] Last Admin: 08/22/19 09:33 Dose: 200 mg Aspirin (Asa -) 81 mg PO DAILY [facility] Last Admin: 08/22/19 09:33 Dose: 81 mg Atorvastatin Calcium (Lipitor -) 40 mg PO HS [facility] Last Admin: 08/21/19 21:18 Dose: 40 mg Benzocaine/Menthol (Cepacol Lozenge -) 1 each MM Q2H PRN PRN Reason: SORE THROAT Last Admin: 08/21/19 01:02 Dose: 1 each Budesonide/Formoterol Fumarate (Symbicort 160/4.5mcg -) 2 puff IH BID [facility] Last Admin: 08/21/19 21:18 Dose: 2 puff Docusate Sodium (Colace -) 100 mg PO BID [facility] Last Admin: 08/22/19 09:33 Dose: 100 mg Famotidine (Pepcid -) 20 mg PO DAILY [facility] Last Admin: 08/22/19 09:33 Dose: 20 mg Ferrous Sulfate (Feosol -) 325 mg PO DAILY [facility] Last Admin: 08/22/19 09:33 Dose: 325 mg Furosemide (Lasix Injection -) 40 mg IVPUSH DAILY [facility] Last Admin: 08/22/19 09:34 Dose: Not Given Ertapenem 1 gm/ Sodium (Chloride) 50 mls @ 100 mls/hr IVPB DAILY [facility] Last Admin: 08/22/19 09:35 Dose: 100 mls/hr Insulin Aspart (Novolog Vial Sliding Scale -) 1 vial SQ ACHS [facility]; Protocol Last Admin: 08/22/19 05:59 Dose: Not Given Levothyroxine Sodium (Synthroid -) 25 mcg PO DAILY@0700 [facility] Last Admin: 08/22/19 05:59 Dose: 25 mcg Metoprolol Tartrate (Lopressor -) 75 mg PO TID [facility] Last Admin: 08/22/19 05:17 Dose: 75 mg Ranolazine (Ranexa -) 1,000 mg PO BID [facility] Last Admin: 08/21/19 21:19 Dose: 1,000 mg Rivaroxaban (Xarelto) 15 mg PO DAILY@1800 [facility] Last Admin: 08/21/19 18:22 Dose: 15 mg Silver Sulfadiazine (Silvadene -) 1 applic TP DAILY [facility] Last Admin: 08/21/19 16:47 Dose: 1 applic Trimethobenzamide HCl (Tigan Injection -) 200 mg IM Q8H PRN PRN Reason: NAUSEA Last Admin: 08/20/19 08:25 Dose: 200 mg - Objective Vital Signs: Vital Signs Temperature 97.9 F 08/22/19 08:54 Pulse Rate 83 08/22/19 08:54 Respiratory Rate 18 08/22/19 08:54 Blood Pressure 90/53 L 08/22/19 08:54 O2 Sat by Pulse Oximetry (%) 94 L 08/22/19 08:54 Neck: Yes: Supple Cardiovascular: Yes: Pulse Irregular, S1, S2 Respiratory: Yes: Diminished Gastrointestinal: Yes: Normal Bowel Sounds, Soft. No: Tenderness Edema: No Additional Findings/Remarks: - Review of Systems Constitutional: denies: Chills, Fever Cardiovascular: reports: Chest Pain. denies: Palpitations, Shortness of Breath Respiratory: denies: Cough, Hemoptysis, Orthopnea, PND, SOB, SOB on Exertion Gastrointestinal: denies: Abdominal Pain, Constipation, Diarrhea, Melena, Nausea , Rectal Bleeding, Vomiting Genitourinary: denies: Dysuria, Hematuria Neurological: denies: Dizziness, Headache, Seizure, Syncope Labs: CBC, BMP 08/21/19 05:05 08/22/19 06:15 Problem List - Problems (1) ACS (acute coronary syndrome) Code(s): I24.9 - ACUTE ISCHEMIC HEART DISEASE, UNSPECIFIED (2) Chronic atrial fibrillation Code(s): I48.2 - CHRONIC ATRIAL FIBRILLATION * DO NOT USE * (3) [id number] kidney injury Code(s): N17.9 - ACUTE KIDNEY FAILURE, UNSPECIFIED; N18.9 - CHRONIC KIDNEY DISEASE, UNSPECIFIED Qualifiers: Chronic kidney disease stage: stage 2 (mild) (4) Anemia Code(s): D64.9 - ANEMIA, UNSPECIFIED Qualifiers: Anemia type: unspecified type Qualified Code(s): D64.9 - Anemia, unspecified (5) CHF (congestive heart failure) Code(s): I50.9 - HEART FAILURE, UNSPECIFIED Qualifiers: Heart failure type: diastolic Heart failure chronicity: acute on chronic Qualified Code(s): I50.33 - Acute on chronic diastolic (congestive) heart failure (6) CKD (chronic kidney disease) Code(s): N18.9 - CHRONIC KIDNEY DISEASE, UNSPECIFIED (7) Chest pain Code(s): R07.9 - CHEST PAIN, UNSPECIFIED Qualifiers: Chest pain type: chest pain due to myocardial ischemia (8) Diabetes Code(s): E11.9 - TYPE 2 DIABETES MELLITUS WITHOUT COMPLICATIONS Qualifiers: Diabetes mellitus type: type 2 Diabetes mellitus detention insulin use: without adjunct faculty for medical terminology use (9) Diverticulosis Code(s): K57.90 - DVRTCLOS OF INTEST, PART UNSP, W/O PERF OR ABSCESS W/O BLEED (10) Hx of CABG Code(s): Z95.1 - PRESENCE OF AORTOCORONARY BYPASS GRAFT (11) Hyperlipidemia Code(s): E78.5 - HYPERLIPIDEMIA, UNSPECIFIED Qualifiers: Hyperlipidemia type: pure hypercholesterolemia Qualified Code(s): E78.00 - Pure hypercholesterolemia, unspecified; E78.0 - Pure hypercholesterolemia (12) Hypertension Code(s): I10 - ESSENTIAL (PRIMARY) HYPERTENSION Qualifiers: Hypertension type: essential hypertension Qualified Code(s): I10 - Essential (primary) hypertension Assessment/Plan 1. Chest pain with underlying CAD s/p PCI, CABG, elevated troponin suggests NSTEMI vs. demand subendocardial ischemia 2. Persistent AF with variable ventricular response, [id number] score of 7 on DOAC 3. T2DM 4. Acute on chronic LV diastolic failure with history of pleural effusion in the past 5. HTN 6. Hypercholesterolemia 7. COPD 8. RESTREPO with cirrhosis 9. Chronic anemia with history of diverticular disease and gastritis 10. CKD 11. Abnormal TSH 12. Mild aortic stenosis 13. UTI PLAN: 1. Continue Metoprolol Tartrate 75 mg TID as tolerated 2. Continue Ranexa 1000 mg BID. If patient remains in atrial fibrillation and not planned for faith of AF and remains permanent, then may consider stopping Amiodarone 3. Continue Xarelto 15 mg QD for now. 4. ASA 81 mg QD 5. Atorvastatin 40 mg QHS 6. IV diuresis and monitor renal function and electrolytes 7. Empiric antibiotics 8. Thoracic Surgery input noted. Thoracentesis if symptomatic Further plans are to follow Jose Raul Brannon MD
[2019-08-22] MEDS ORDERED: FUROSEMIDE 40 MG TABLET (FP) PO SCH (13:15)
[2019-08-22 14:07] VITALS: TEMP 97.3
[2019-08-22] MEDS: RANOLAZINE E.R. 500 MG TABLET (FP) PO SCH (14:18)
[2019-08-22] MEDS: BUDESONIDE/FORMETEROL FUMARATE 160/4.5 mcg INHALER IH SCH (14:20)
[2019-08-22] MEDS: SILVER SULFADIAZINE 1% TOP CREAM 50 GM JAR TP SCH (14:20)
[2019-08-22 15:03] VITALS: BP 110/56; PULSE 105
--- NOTE | 2019-08-22 16:08 | PN ---
Teaching Attending Note Name of Resident: María Casarez ATTENDING PHYSICIAN STATEMENT I saw and evaluated the patient. I reviewed the resident's note and discussed the case with the resident. I agree with the resident's findings and plan as documented. SUBJECTIVE: Feeling better. Less SOB. No CP/cough/sputum/fever/chills. OBJECTIVE: Afebrile, Hemodynamicaly Stable. Last Vital Signs Temp Pulse Resp BP Pulse Ox 97.3 F L 105 H 16 110/56 L 94 L 08/22/19 14:05 08/22/19 15:02 08/22/19 15:02 08/22/19 15:02 08/22/19 08:54 HEENT- Atramatic, Normocephalic. Heart - S1, S2, soft SM Lungs - good air entry bilaterally Abdomen - Soft, non-tender. Bowel sounds normal. Extremities - mild edema. No calf tenderness. Neuro - AAO x 3. Moving all extremities. Laboratory Results - last 24 hr 08/21/19 08/21/19 08/22/19 17:12 21:17 05:29 Sodium Potassium Chloride Carbon Dioxide Anion Gap BUN Creatinine Est GFR (CKD-EPI)AfAm Est GFR (CKD-EPI)NonAf POC Glucometer 102 104 93 Random Glucose Calcium Magnesium 08/22/19 08/22/19 06:15 11:51 Sodium 134 L Potassium 3.8 Chloride 95 L Carbon Dioxide 33 H Anion Gap 7 L BUN 26.1 H Creatinine 0.9 Est GFR (CKD-EPI)AfAm 67.10 Est GFR (CKD-EPI)NonAf 57.90 POC Glucometer 95 Random Glucose 92 Calcium 9.7 Magnesium 2.2 Current Medications Generic Name Dose Route Start Last Admin Trade Name Freq PRN Reason Stop Dose Admin Acetaminophen 650 mg 08/17/19 13:30 08/21/19 01:02 Tylenol - PO 650 mg DAILY PRN Administration PAIN Amiodarone HCl 200 mg 08/15/19 10:00 08/22/19 09:33 Cordarone - PO 200 mg DAILY JENNY Administration Aspirin 81 mg 08/16/19 10:00 08/22/19 09:33 Asa - PO 81 mg DAILY JENNY Administration Atorvastatin Calcium 40 mg 08/15/19 22:00 08/21/19 21:18 Lipitor - PO 40 mg HS JENNY Administration Benzocaine/Menthol 1 each 08/20/19 14:24 08/21/19 01:02 Cepacol Lozenge - MM 1 each Q2H PRN Administration SORE THROAT Budesonide/Formoterol Fumarate 2 puff 08/16/19 22:00 08/22/19 14:20 Symbicort 160/4.5mcg - IH 2 puff BID JENNY Administration Docusate Sodium 100 mg 08/15/19 10:00 08/22/19 09:33 Colace - PO 100 mg BID JENNY Administration Famotidine 20 mg 08/15/19 10:00 08/22/19 09:33 Pepcid - PO 20 mg DAILY JENNY Administration Ferrous Sulfate 325 mg 08/15/19 10:00 08/22/19 09:33 Feosol - PO 325 mg DAILY JENNY Administration Furosemide 40 mg 08/22/19 13:15 08/22/19 15:23 Lasix - PO 40 mg DAILY [facility]ENNY Administration Ertapenem 1 gm/ Sodium 50 mls @ 100 mls/hr 08/18/19 12:00 08/22/19 09:35 Chloride IVPB 100 mls/hr DAILY JENNY Administration Insulin Aspart 1 vial 08/15/19 07:00 08/22/19 14:22 Novolog Vial Sliding Scale - SQ Not Given ACHS [facility] Protocol Levothyroxine Sodium 25 mcg 08/17/19 07:00 08/22/19 05:59 Synthroid - PO 25 mcg DAILY@0700 [facility]ENNY Administration Metoprolol Tartrate 75 mg 08/16/19 08:45 08/22/19 15:28 Lopressor - PO 75 mg TID JENNY Administration Ranolazine 1,000 mg 08/17/19 10:00 08/22/19 14:18 Ranexa - PO Not Given BID JENNY Rivaroxaban 15 mg 08/15/19 18:00 08/21/19 18:22 Xarelto PO 15 mg DAILY@1800 [facility]NY Administration Silver Sulfadiazine 1 applic 08/15/19 10:00 08/22/19 14:20 Silvadene - TP 1 applic DAILY [facility] Administration Trimethobenzamide HCl 200 mg 08/19/19 12:17 08/20/19 08:25 Tigan Injection - IM 200 mg Q8H PRN Administration NAUSEA Home Medications Medication Instructions Recorded Folic Acid - 400 mcg PO ASDIR 02/16/12 Glucosamine/D3/Boswellia Eda 1 tab PO BID 03/18/16 [Osteo Bi-Flex Caplet] Iron,Carbonyl [Feosol] 65 mg PO DAILY 03/18/16 Mometasone Furoate [Asmanex] 220 mcg IH BID PRN 03/18/16 Cyanocobalamin (Vitamin B-12) 1,000 mcg PO DAILY 02/01/19 [Vitamin B-12] Vitamin E 1 tab PO DAILY 02/01/19 Amiodarone HCl [Cordarone -] 200 mg PO DAILY tablet 03/27/19 Docusate Sodium [Colace -] 100 mg PO BID capsule 03/27/19 Insulin Sliding Scale [Novolog 1 vial SQ ACHS units 03/27/19 Vial Sliding Scale -] Polyethylene Glycol 3350 [Miralax 17 gm PO BID bottle 03/27/19 119 gm Btl -] Rivaroxaban [Xarelto] 15 mg PO DAILY@1800 tablet 03/27/19 Albuterol 2.5/Ipratropium 0.5 1 neb NEB Q4H PRN 08/15/19 [Duoneb -] Atorvastatin Calcium 40 mg PO DAILY 08/15/19 Famotidine [Pepcid -] 40 mg PO DAILY 08/15/19 Metoprolol Tartrate 50 mg PO DAILY 08/15/19 Ranitidine HCl [Acid Music Executive] 150 mg PO DAILY 08/15/19 Silver Sulfadiazine [Silvadene] 1,000 gm TP DAILY 08/15/19 Aspirin [ASA -] 81 mg PO DAILY tab.chew 08/22/19 Furosemide [Lasix -] 40 mg PO DAILY 30 Days #30 tablet 08/22/19 Levothyroxine [Synthroid -] 25 mcg PO DAILY@0700 30 Days #30 08/22/19 tablet Ranolazine [Ranexa -] 1,000 mg PO BID 30 Days #120 tab 08/22/19 ASSESSMENT AND PLAN: 84 year old female with a past medical history of CAD(s/p PCI, CABG (2003)), chronic diastolic CHF, HTN, DM 2, Hyperlipdemia, chronic right sided pleural effusions (s/p thoracocentesis), diverticulosis, gastritis, Liver Cirrhosis, and anxiety, presented with chest discomfort, found to have a UTI. 1. Acute UTI Urine Cx ESBL Renal US - non-obstructing renal stones. PICC for 10 days total Ertapenem as per ID Afebrile, medically stable for discharge after PICC. 2. Chronic R sided pleural effusion Last thoracentesis 01/25 CT chest showing large right and smaller left pleural effusions with extensive atelectasis of the lower lobes. There are chronic lung changes noted bilaterally with no definite evidence of pneumonia or acute pathology. 5mm nodule that is stable since prior studies on 02/01/19. Pulmonary and Cardiothoracic sx evaluated - no need for thoracentesis as patient is currently asymptomatic - for out-patient follow up. 3. Atypical Chest Pain with history of CAD s/p PCI/CABG Recent Lexiscan 01/25 negative Cardiology evaluated. Continue Aspirin/Lopressor/Lipitor. Ranexa increased. 4. Hypothyroidism TSH 25, fT4 0.66 Started on Synthroid. Endocrinology follow up as out-patient . 5. DM 2 - resume home meds on discharge 6. HTN - continue Toprol XL. 7. Atrial Fibrillation - continue Toprol, amiodarone, Xarelto. 8. HLD - on Statin 9. COPD - Stable. Albuterol PRN. 10. Chronic Diastolic CHF - continue Lasix 40mg daily. Medically optimized for discharge after PICC on IV Ertapenem.
--- NOTE | 2019-08-22 16:09 | PN ---
Physical Exam: SUBJECTIVE: Patient seen and examined. No acute events overnight. Denies any chest pain, abd pain, SOB, fever, chills, or other concerns. States that she absolutely does not want to go to SNF. Explained the need for PICC line and continuing abx to her and her son over the phone. OBJECTIVE: Vital Signs Period Temp Pulse Resp BP Sys/Cortes Pulse Ox Last 24 Hr 97.1 F-98.0 F 83-109 16-18 90-150/52-82 94-98 GENERAL: The patient is awake, alert, and fully oriented, in no acute distress. HEAD: Normal with no signs of trauma. EYES: EOMI, no ptosis, no scleral icterus ENT: MMM NECK: Trachea midline, supple LUNGS: decreased breath sounds at bilateral bases R>L, no wheezing. No accessory muscle use. HEART: Regular rate and rhythm, S1, S2, systolic ejection murmur noted ABDOMEN: Soft, nontender, nondistended, normoactive bowel sounds, no guarding, no rebound, no masses. EXTREMITIES: 2+ pulses, warm, well-perfused, no edema. NEUROLOGICAL: 4/5 muscle strength bilaterally upper and lower extremities. Normal speech PSYCH: Normal mood, normal affect. SKIN: Warm, dry, normal turgor, no rashes or lesions noted Laboratory Results - last 24 hr 08/21/19 08/21/19 08/22/19 17:12 21:17 05:29 Sodium Potassium Chloride Carbon Dioxide Anion Gap BUN Creatinine Est GFR (CKD-EPI)AfAm Est GFR (CKD-EPI)NonAf POC Glucometer 102 104 93 Random Glucose Calcium Magnesium 08/22/19 08/22/19 06:15 11:51 Sodium 134 L Potassium 3.8 Chloride 95 L Carbon Dioxide 33 H Anion Gap 7 L BUN 26.1 H Creatinine 0.9 Est GFR (CKD-EPI)AfAm 67.10 Est GFR (CKD-EPI)NonAf 57.90 POC Glucometer 95 Random Glucose 92 Calcium 9.7 Magnesium 2.2 Active Medications Generic Name Dose Route Start Last Admin Trade Name Freq PRN Reason Stop Dose Admin Acetaminophen 650 mg 08/17/19 13:30 08/21/19 01:02 Tylenol - PO 650 mg DAILY PRN Administration PAIN Amiodarone HCl 200 mg 08/15/19 10:00 08/22/19 09:33 Cordarone - PO 200 mg DAILY JENNY Administration Aspirin 81 mg 08/16/19 10:00 08/22/19 09:33 Asa - PO 81 mg DAILY JENNY Administration Atorvastatin Calcium 40 mg 08/15/19 22:00 08/21/19 21:18 Lipitor - PO 40 mg HS JENNY Administration Benzocaine/Menthol 1 each 08/20/19 14:24 08/21/19 01:02 Cepacol Lozenge - MM 1 each Q2H PRN Administration SORE THROAT Budesonide/Formoterol Fumarate 2 puff 08/16/19 22:00 08/22/19 14:20 Symbicort 160/4.5mcg - IH 2 puff BID JENNY Administration Docusate Sodium 100 mg 08/15/19 10:00 08/22/19 09:33 Colace - PO 100 mg BID JENNY Administration Famotidine 20 mg 08/15/19 10:00 08/22/19 09:33 Pepcid - PO 20 mg DAILY JENNY Administration Ferrous Sulfate 325 mg 08/15/19 10:00 08/22/19 09:33 Feosol - PO 325 mg DAILY JENNY Administration Furosemide 40 mg 08/22/19 13:15 08/22/19 15:23 Lasix - PO 40 mg DAILY JENNY Administration Ertapenem 1 gm/ Sodium 50 mls @ 100 mls/hr 08/18/19 12:00 08/22/19 09:35 Chloride IVPB 100 mls/hr DAILY JENNY Administration Insulin Aspart 1 vial 08/15/19 07:00 08/22/19 14:22 Novolog Vial Sliding Scale - SQ Not Given ACHS [facility] Protocol Levothyroxine Sodium 25 mcg 08/17/19 07:00 08/22/19 05:59 Synthroid - PO 25 mcg DAILY@0700 JENNY Administration Metoprolol Tartrate 75 mg 08/16/19 08:45 08/22/19 15:28 Lopressor - PO 75 mg TID [facility] Administration Ranolazine 1,000 mg 08/17/19 10:00 08/22/19 14:18 Ranexa - PO Not Given BID JENNY Rivaroxaban 15 mg 08/15/19 18:00 08/21/19 18:22 Xarelto PO 15 mg DAILY@1800 [facility] Administration Silver Sulfadiazine 1 applic 08/15/19 10:00 08/22/19 14:20 Silvadene - TP 1 applic DAILY JENNY Administration Trimethobenzamide HCl 200 mg 08/19/19 12:17 08/20/19 08:25 Tigan Injection - IM 200 mg Q8H PRN Administration NAUSEA ASSESSMENT/PLAN: Shantell Alexis is an 84 year old female with a past medical history of CAD(s/p PCI , CABG (2003)), HFpEF, HTN, DM, Hyperlipdemia, chronic right sided pleural effusions (s/p thoracocentesis), diverticulosis, gastritis, RESTREPO cirrhosis, and anxiety admitted to telemetry to r/o ACS and treatment of UTI. Patient found to have NSTEMI with troponin that peaked at 2.1, no ischemic changes were noted on EKG. ECHO showed EF of 55%, moderate asymmetric left ventricular hypertrophy, right ventricle mildly dilated, RVEF moderately reduced. Patient's Ranexa medication was increased to 1000mg BID from 500mg BID. Diagnosed wtih UTI with positive UA and a urine culture growing Klebsiella Oxytoca. She was started on Ertapenem for coverage with improvement and will be discharged home with a PICC line for continuing abx as she needs 10 days total of treatment. Social work spoke with her son who stated that he learn to give the abx at home as he would prefer for the patient to return home and patient refused SNF placement. Patient has a chronic right sided pleural effusion. CT imaging showed a large right sided pleural effusion and smaller left sided pleural effusion and a 5mm nodule that has been stable since prior studies done on 02/01/19. Patient seen by pulmonology who deferred thoracocentesis at this time as patient is asymptomatic. Pulmonology recommended outpatient follow up for further management, recommended that patient weigh herself daily to make sure she is not started to retain more fluids and to have CXR completed every few weeks to monitor fluid levels. On admission patient was found to be hypothyroid and was started on Synthroid 25mg daily. Patient stable for discharge home with PICC line for continuing abx. Lasx dose increased to 40mg daily. Recommended to follow up with PCP, Endocrinology, Cardiology, and Pulmonology. ATTENDING PHYSICIAN STATEMENT I saw and evaluated the patient. I reviewed the resident's note and discussed the case with the resident. I agree with the resident's findings and plan as documented. SUBJECTIVE: OBJECTIVE: ASSESSMENT AND PLAN:
--- NOTE | 2019-08-22 16:41 | DS ---
Physical Exam: SUBJECTIVE: Patient seen and examined. No acute events overnight. Denies any chest pain, abd pain, SOB, fever, chills, or other concerns. States that she absolutely does not want to go to SNF. Explained the need for PICC line and continuing abx to her and her son over the phone. OBJECTIVE: Vital Signs Period Temp Pulse Resp BP Sys/Cortes Pulse Ox Last 24 Hr 97.1 F-98.0 F 83-109 16-18 90-150/52-82 94-98 PHYSICAL EXAM GENERAL: The patient is awake, alert, and fully oriented, in no acute distress. HEAD: Normal with no signs of trauma. EYES: EOMI, no ptosis, no scleral icterus ENT: MMM NECK: Trachea midline, supple LUNGS: decreased breath sounds at bilateral bases R>L, no wheezing. No accessory muscle use. HEART: Regular rate and rhythm, S1, S2, systolic ejection murmur noted ABDOMEN: Soft, nontender, nondistended, normoactive bowel sounds, no guarding, no rebound, no masses. EXTREMITIES: 2+ pulses, warm, well-perfused, no edema. NEUROLOGICAL: 4/5 muscle strength bilaterally upper and lower extremities. Normal speech PSYCH: Normal mood, normal affect. SKIN: Warm, dry, normal turgor, no rashes or lesions noted LABS Laboratory Results - last 24 hr 08/21/19 08/21/19 08/22/19 17:12 21:17 05:29 Sodium Potassium Chloride Carbon Dioxide Anion Gap BUN Creatinine Est GFR (CKD-EPI)AfAm Est GFR (CKD-EPI)NonAf POC Glucometer 102 104 93 Random Glucose Calcium Magnesium 08/22/19 08/22/19 06:15 11:51 Sodium 134 L Potassium 3.8 Chloride 95 L Carbon Dioxide 33 H Anion Gap 7 L BUN 26.1 H Creatinine 0.9 Est GFR (CKD-EPI)AfAm 67.10 Est GFR (CKD-EPI)NonAf 57.90 POC Glucometer 95 Random Glucose 92 Calcium 9.7 Magnesium 2.2 HOSPITAL COURSE: Date of Admission:08/15/19 Date of Discharge: 08/22/19 Shantell Alexis is an 84 year old female with a past medical history of CAD(s/p PCI , CABG (2003)), HFpEF, HTN, DM, Hyperlipdemia, chronic right sided pleural effusions (s/p thoracocentesis), diverticulosis, gastritis, RESTREPO cirrhosis, and anxiety admitted to telemetry to r/o ACS and treatment of UTI. Patient found to have NSTEMI with troponin that peaked at 2.1, no ischemic changes were noted on EKG. ECHO showed EF of 55%, moderate asymmetric left ventricular hypertrophy, right ventricle mildly dilated, RVEF moderately reduced. Patient's Ranexa medication was increased to 1000mg BID from 500mg BID. Diagnosed wtih UTI with positive UA and a urine culture growing Klebsiella Oxytoca. She was started on Ertapenem for coverage with improvement and will be discharged home with a PICC line for continuing abx as she needs 10 days total of treatment. Social work spoke with her son who stated that he learn to give the abx at home as he would prefer for the patient to return home and patient refused SNF placement. Patient has a chronic right sided pleural effusion. CT imaging showed a large right sided pleural effusion and smaller left sided pleural effusion and a 5mm nodule that has been stable since prior studies done on 02/01/19. Patient seen by pulmonology who deferred thoracocentesis at this time as patient is asymptomatic. Pulmonology recommended outpatient follow up for further management, recommended that patient weigh herself daily to make sure she is not started to retain more fluids and to have CXR completed every few weeks to monitor fluid levels. On admission patient was found to be hypothyroid and was started on Synthroid 25mg daily. Patient stable for discharge home with PICC line for continuing abx. Lasx dose increased to 40mg daily. Recommended to follow up with PCP, Endocrinology, Cardiology, and Pulmonology. Minutes to complete discharge: 36 Discharge Summary Problems reviewed: Yes Reason For Visit: ELEVATED TROPONIN LEVEL, CHEST PAIN Current Active Problems ACS (acute coronary syndrome) (Acute) Chronic atrial fibrillation (Acute) Condition: Stable - Instructions Diet, Activity, Other Instructions: You presented to the hospital due pain in your left and and chest pain. You were worked up for heart issues and your heart enzymes were elevated during your admission but there were no signs of a heart attack. You were seen by cardiology and your medications were continued appropriately. On imaging we found that you have a large amount of fluid in your lungs and you were seen by Pulmonology regarding this issue. You were given medications to help excrete the buildup of fluid. Pulmonology recommended that there was no need to drain the fluid at this time as you are asymptomatic and recommended outpatient follow up. You were also found to have UTI on admission and were started on antibiotics. You will need to continue these antibiotics after discharge so you had a shelter IV line placed, your last dose of antibiotics will be on 06/26. On admission you were found to have low thyroid hormones and were started on Synthroid to treat hypothyroidism. The rest of your home medications were continued appropriately. Medication Changes: 1. START Ertapenem 1g daily for further treatment of your UTI. Your last dose will be on 06/26. 2. START Synthroid 25mg daily for treatment of your hypothyroidism. 3. START Lasix 40mg daily. You were previously on 20mg daily and we are increasing your dose as you are still building up fluid around your lungs. 4. START Ranexa 1000mg twice daily. We increased your dose while you were admitted. Follow up labs: 1. Please have your thyroid stimulating hormone checked in 2 weeks. 2. Please have you basic metabolic panel checked in 1 week to monitor your electrolyte levels as we are increasing the dose of your Lasix medication. Follow up with the following physicians: 1. Please follow up with your primary care provider within 3-5 days of discharge for further management of your medical conditions and to discuss the medications you were started on while in the hospital. 2. Recommended to follow up with cardiology within 1 week of discharge for further management of your heart disease. If you do not have a ornamental metal worker helper a referral has been provided for you for the the ornamental metal worker helper you were seen by while in the hospital. 3. Recommended to follow up with Dr. New, Endocrinology, within 1 week of discharge regarding your new diagnosis of hypothyroidism. 4. Recommended to follow up with Dr. Reid, Pulmonology, within 1 week of discharge for further management of the fluid that has built up around your lungs. There was no need for drainage while you were in the hospital as you were asymptomatic. We recommend that you weigh yourself daily to make sure you are not starting to retain more fluid. We also recommend you get follow up chest x-rays as directed by Pulmonology to monitor if the fluid is getting worse or better . Activity and Diet 1. You are being discharged home. Recommend daily exercise to help strengthen your muscles. 2. Please monitor your diet as you need to consume a diet low in fats, salt, and sugars. 3. You are being discharged home with IV antibiotics as your had terminal press operator IV placed. Please keep the IV site clean and dry. If you notice swelling, redness, increasing pain, or other concerning signs around the IV site please call you primary care provider immediately or return to the emergency department immediately. Continue all your other medications as prescribed Please return to the ER if you have any signs or symptoms of chest pain, shortness of breath, uncontrollable fever, chills, nausea, vomiting, numbness, tingling, or weakness in any part of your body, changes in vision, or slurred speech. Please return to the ER if symptoms persist, worsen, or new symptoms arise. Referrals: Santana Castillo MD [Primary Care Provider] - Jose Villasenor MD [Staff Physician] - Ryanne New MD [Staff Physician] - Alban Reid MD, MD [Staff Physician] - Disposition: HOME - Home Medications Comprehensive Discharge Medication List: Ambulatory Orders Folic Acid - 400 mcg PO ASDIR 02/16/12 Glucosamine/D3/Boswellia Eda [Osteo Bi-Flex Caplet] 1 tab PO BID 03/18/16 Iron,Carbonyl [Feosol] 65 mg PO DAILY 03/18/16 Mometasone Furoate [Asmanex] 220 mcg IH BID PRN 03/18/16 Cyanocobalamin (Vitamin B-12) [Vitamin B-12] 1,000 mcg PO DAILY 02/01/19 Vitamin E 1 tab PO DAILY 02/01/19 Amiodarone HCl [Cordarone -] 200 mg PO DAILY tablet 03/27/19 Docusate Sodium [Colace -] 100 mg PO BID capsule 03/27/19 Insulin Sliding Scale [Novolog Vial Sliding Scale -] 1 vial SQ ACHS units 03/27 Polyethylene Glycol 3350 [Miralax 119 gm Btl -] 17 gm PO BID bottle 03/27/19 Rivaroxaban [Xarelto] 15 mg PO DAILY@1800 tablet 03/27/19 Albuterol 2.5/Ipratropium 0.5 [Duoneb -] 1 neb NEB Q4H PRN 08/15/19 Atorvastatin Calcium 40 mg PO DAILY 08/15/19 Famotidine [Pepcid -] 40 mg PO DAILY 08/15/19 Metoprolol Tartrate 50 mg PO DAILY 08/15/19 Ranitidine HCl [Acid Ornamental Rail Installer] 150 mg PO DAILY 08/15/19 Silver Sulfadiazine [Silvadene] 1,000 gm TP DAILY 08/15/19 Aspirin [ASA -] 81 mg PO DAILY tab.chew 08/22/19 Furosemide [Lasix -] 40 mg PO DAILY 30 Days #30 tablet 08/22/19 Levothyroxine [Synthroid -] 25 mcg PO DAILY@0700 30 Days #30 tablet 08/22/19 Ranolazine [Ranexa -] 1,000 mg PO BID 30 Days #120 tab 08/22/19 This patient is new to me today: No Emergency Visit: Yes ED Registration Date: 08/15/19 Care time: The patient presented to the Emergency Department on the above date and was hospitalized for further evaluation of their emergent condition. Critical Care patient: No - Discharge Referral Referred to [facility] No ATTENDING PHYSICIAN STATEMENT I saw and evaluated the patient. I reviewed the resident's note and discussed the case with the resident. I agree with the resident's findings and plan as documented. SUBJECTIVE: OBJECTIVE: ASSESSMENT AND PLAN:
== END 2019-08-22 16:59 | disposition home or self-care (01) | DRG 280 ==
LOC: SUPCPDRO 22:14 → JER 22:14 → JERBED 08-15 00:51 → J4W 08-15 17:11 → J4S 08-17 18:59
PROVIDERS: ADMIT Internal Medicine
PROC: 02HV33Z Insertion of Infusion Device into Superior Vena Cava, Percutaneous Approach (ICD-10-PCS; principal; 2019-08-22)
DX: I13.0 Hypertensive heart and chronic kidney disease with heart failure and stage 1 through stage 4 chronic kidney disease, or unspecified chronic kidney disease (principal); I21.4 Non-ST elevation (NSTEMI) myocardial infarction; I50.33 Acute on chronic diastolic (congestive) heart failure; J96.00 Acute respiratory failure, unspecified whether with hypoxia or hypercapnia; E43 Unspecified severe protein-calorie malnutrition; N39.0 Urinary tract infection, site not specified; I48.19 Other persistent atrial fibrillation; J98.11 Atelectasis; I24.8 Other forms of acute ischemic heart disease; E87.1 Hypo-osmolality and hyponatremia; I25.10 Atherosclerotic heart disease of native coronary artery without angina pectoris; Z95.1 Presence of aortocoronary bypass graft; Z95.5 Presence of coronary angioplasty implant and graft; E78.5 Hyperlipidemia, unspecified; E03.9 Hypothyroidism, unspecified; N18.9 Chronic kidney disease, unspecified; I35.0 Nonrheumatic aortic (valve) stenosis; R07.9 Chest pain, unspecified; K29.70 Gastritis, unspecified, without bleeding; J44.9 Chronic obstructive pulmonary disease, unspecified; Z68.21 Body mass index [BMI] 21.0-21.9, adult; E88.09 Other disorders of plasma-protein metabolism, not elsewhere classified; B96.1 Klebsiella pneumoniae [K. pneumoniae] as the cause of diseases classified elsewhere; E87.6 Hypokalemia; D64.9 Anemia, unspecified
CPT/HCPCS: 36415; 36569; 71045-TC-FY; 71250-TC; 76775-TC; 76856-TC; 77001-TC-FY; 80048; 80053; 80061; 81003; 82550; 82962; 83036; 83721; 83735; 83880; 84100; 84134; 84439; 84443; 84484; 85025; 85027; 85610; 85730; 87070; 87086; 87186; 87205; 87633; 87804; 93005; 93010; 93306-TC; 94010; 97116-GP; 97161-GP; 99285-25; C1751